=== PATIENT | female | born 1980 | race Caucasian/White ===

== ENCOUNTER → 2017-11-26 10:29 | Outpatient (CLI) | payer MEDICAID, SELFPAY ==
[2017-11-26 12:22] LABS: Absolute Lymphocyte Count 1.71 X10^3/ul (0.83-4.51); Absolute Neutrophil Count 3.4 X10^3/uL (2.0-7.7); Basophil# 0.01 X10^3/uL; Basophil% 0.2 % (0-1); Eosinophil# 0.09 X10^3/uL; Eosinophils% 1.6 % (0-5); Hematocrit 34.6 % (37-47); Hemoglobin 10.6 g/dl (12.0-15.0); Lymphocyte # 1.71 X10^3/ul (4.0); Lymphocyte % 29.9 % (19-41); Mean Corp Hgb Conc 30.6 g/gl (32-36); Mean Corpuscular Hgb 26.9 pg (27.0-32.0); Mean Corpuscular Volume 87.8 fL (81-99); Mean Platelet Vol. 10.2 fl (6.2-12.0); Monocyte# 0.45 X10^3/uL; Monocyte% 7.9 % (0-10); Neutrophil # 3.43 X10^3/uL (2.7-7.7); Neutrophil % 59.9 % (47-70); Platelet Count 258 K/mm3 (150-450); RBC Distribution Width CV 16.2 % (11.6-14.6); RBC Distribution Width SD 51.7 fl (35.1-43.9); Red Blood Count 3.94 M/mm3 (4.2-5.4); White Blood Count 5.7 K/mm3 (4.4-11.0)
[2017-11-26 12:26] LABS: D-Dimer Quantitative (DVT/PE) 0.44 FEU/ug/m (0.27-0.49)
[2017-11-26 12:33] LABS: POSITIVE COUNT NO; POSITIVE DIFFERENTIAL NO; POSITIVE MORPHOLOGY NO
== END ==
PROVIDERS: Family Provider Family Medicine; PCP Family Medicine; Visit Provider Family Medicine
DX: R06.00 Dyspnea, unspecified (principal)
CPT/HCPCS: 36415; 85025; 85379

== ENCOUNTER → 2018-01-01 14:22 | Outpatient (CLI) | payer MEDICAID, SELFPAY ==
[2018-01-01 17:21] LABS: Chlamydia Trachomatis by PCR Negative (Negative); Neisserai gonorrhoeae by PCR Negative (Negative); Probe Check PASS; Sample Adequacy Control PASS; Specimen Processing Control PASS
[2018-01-02 10:28] LABS: HIV - WCH Non-Reactive (Nonreactive)
[2018-01-03 12:31] LABS: HEPATITIS B SURFACE AG Negative (Negative); HSV 2 IgG < 0.91 index (0.00-0.90)
[2018-01-03 12:35] LABS: Hep C Antibodies <0.1 s/co ratio (0.0-0.9)
[2018-01-04 02:33] LABS: Rapid Plasmin Reagin (RPR) NONREACTIVE (NONREACTIVE)
[2018-01-05 03:07] LABS: HSV 1 By PCR Negative (Negative)
[2018-01-07 12:15] LABS: HSV 2 By PCR Negative (Negative)
== END ==
PROVIDERS: Visit Provider Obstetrics & Gynecology
DX: Z11.3 Encounter for screening for infections with a predominantly sexual mode of transmission (principal)
CPT/HCPCS: 36415; 86592; 86695; 86696; 86703; 86803; 87340; 87491; 87529; 87591

== ENCOUNTER → 2018-01-31 12:24 | Outpatient (CLI) | payer MEDICAID, SELFPAY ==
[2018-01-31 12:47] LABS: Hematocrit 37.3 % (37-47); Hemoglobin 11.9 g/dl (12.0-15.0); Mean Corp Hgb Conc 31.9 g/gl (32-36); Mean Corpuscular Hgb 27.5 pg (27.0-32.0); Mean Corpuscular Volume 86.1 fL (81-99); Mean Platelet Vol. 9.9 fl (6.2-12.0); Platelet Count 336 K/mm3 (150-450); RBC Distribution Width CV 15.5 % (11.6-14.6); RBC Distribution Width SD 48.9 fl (35.1-43.9); Red Blood Count 4.33 M/mm3 (4.2-5.4); White Blood Count 15.5 K/mm3 (4.4-11.0)
[2018-01-31 12:51] LABS: Scan Indicated on CBC? Y/N NO
[2018-01-31 13:27] LABS: ALB/GLOB Ratio 0.8 RATIO (0.9-2.4); AST(SGOT) 17 U/L (15-37); Alanine Aminotransfer ALT/SGPT 25 U/L (13-56); Albumin, Serum 3.4 g/dL (3.2-5.0); Alkaline Phosphatase 97 U/L (45-117); Anion Gap 7 (5-15); BUN 13 mg/dL (7-18); BUN/Creat Ratio 16.1 RATIO (10-20); Calcium,Total 8.8 mg/dL (8.5-10.1); Chloride 105 mmol/L (98-107); Creatinine, Serum 0.81 mg/dL (0.55-1.02); EST Glomerular Filtration Rate 85 mL/min (>60); Est Glom Filt Rate - Afr Amer 103 mL/min (>60); Free T3 2.4 pg/mL (2.18-3.98); Globulin 4.5 g/dL (2.2-4.2); Glucose 104 mg/dL (74-106); Protein, Total 7.9 g/dL (6.4-8.2); Sodium Level 137 mmol/L (136-145); T4 Free Direct 1.52 ng/dL (0.76-1.46); Thyroid Stim Hormone (TSH) 0.32 uIU/mL (0.358-3.74)
== END ==
PROVIDERS: Family Provider Family Medicine; PCP Family Medicine; Visit Provider Nurse Practitioner
DX: E11.9 Type 2 diabetes mellitus without complications (principal); E03.9 Hypothyroidism, unspecified
CPT/HCPCS: 36415; 80053; 84439; 84443; 84481; 85027

== ENCOUNTER → 2018-02-07 10:34 | Outpatient (CLI) | payer MEDICAID, SELFPAY ==
--- NOTE | 2018-02-07 10:36 | US_ITS ---
STUDY: THYROID ULTRASOUND REASON FOR EXAM: Female, 37 years old. Difficulty swallowing. TECHNIQUE: Ultrasound evaluation of the thyroid was performed with real-time and static wolfe-scale imaging. COMPARISON: Comparison is made with prior CT scan dated January 24, 2013. FINDINGS: RIGHT LOBE: The right lobe of the thyroid gland measures 4.5 cm x 1.7 cm x 1.8 cm. There is a homogeneous echotexture. There is a 1.2 cm x 0.9 cm x 0.8 cm solid heterogeneous echotexture nodule in the mid pole. Adjacent to this, there is a hypoechoic solid nodule measuring 4 mm x 3 mm by 3 mm. LEFT LOBE: The left lobe of the thyroid gland measures 4.7 cm x 1.8 cm x 1.5 cm. There is a homogeneous echotexture. There is a 7 mm x 7 mm x 6 mm well-defined nodule in the upper pole of the mixed echogenicity. A similar-appearing nodule measuring 5 mm x 4 mm x 3 mm is seen in the mid upper aspect of the lobe as well. ISTHMUS: The isthmus measures 5.0 mm. The regional lymph nodes are normal. US/Thyroid IMPRESSION: Bilateral thyroid nodules. The largest measures 1.2 cm x 0.9 cm x 0.8 cm of mixed echogenicity in the midportion of the right lobe. Electronically Signed: Santhosh Wilkins MD at 13:23 EDT Tel [phone], Service support ,
== END ==
PROVIDERS: Family Provider Family Medicine; PCP Family Medicine; Visit Provider Nurse Practitioner
DX: E03.9 Hypothyroidism, unspecified (principal); E11.9 Type 2 diabetes mellitus without complications
CPT/HCPCS: 76536

== ENCOUNTER → 2018-04-02 14:56 | Outpatient (CLI) | payer MEDICAID, SELFPAY ==
--- NOTE | 2018-04-01 14:18 | ASPS_PTH ---
PATIENT: NEIDA MANNING LOC: [facility] U#:[id number] AGE/SX: 44/F ROOM: RE04/02/[address]: Dr. Brent Mora MD : 1980 BED: DIS: SPEC #: [id number] RECD: 04/02/18 13:50 STATUS: MEDHAT SHANNAN #: [id number] [place]: 04/01/18 14:[address]: Brent Mora DEPT: CYTOLOGY RECD BY: Gigi Rod ENTERED: 04/03/18 09:01 SP TYPE: ASPIRATION OTHR DR: Dr. Albert Cheatham DO Tissues: Thyroid gland, NOS Procedures: Pap Stain (control) Special Stain Group II Cytology Other HEADER OPERATION: Ultrasound guided fine needle aspiration, right thyroid PRE-OP DIAGNOSIS: Multinodular goiter E04.2 TISSUE SUBMITTED: Fine needle aspiration, right thyroid DIAGNOSIS CYTOLOGY Right thyroid, ultrasound guided FNA (smears): Consistent with benign follicular nodule. See cytology study and comment. SJ:rg 04/04/18 COMMENT Immediate cytologic evaluation to determine adequacy is not applicable. Correlation with clinical, radiologic findings and appropriate follow up are necessary. CYTOLOGY STUDY Slides are reviewed. The specimen is adequate for evaluation. The specimen consists of benign follicular cells and colloid. CYTOLOGY GROSS Received are 12 smears labeled with the patient's name and designated per the requisition as FNA right thyroid. Submitted for staining. / CC:cc 04/03/18 TC:5 CPT: 14058
== END ==
PROVIDERS: Family Provider Family Medicine; PCP Family Medicine; Visit Provider Surgery
DX: E04.2 Nontoxic multinodular goiter (principal)
CPT/HCPCS: 88161; 88313

== ENCOUNTER → 2018-05-01 10:26 | Outpatient (CLI) | payer MEDICAID, SELFPAY ==
[2018-05-01 13:04] LABS: Erythrocyte Sedimentation Rate 37 mm/hr (0-20)
[2018-05-01 13:05] LABS: Absolute Lymphocyte Count 2.24 X10^3/ul (0.83-4.51); Absolute Neutrophil Count 4.1 X10^3/uL (2.0-7.7); Basophil# 0.02 X10^3/uL; Basophil% 0.3 % (0-1); Eosinophil# 0.11 X10^3/uL; Eosinophils% 1.6 % (0-5); Hematocrit 36.7 % (37-47); Hemoglobin 11.4 g/dl (12.0-15.0); Lymphocyte # 2.24 X10^3/ul (4.0); Lymphocyte % 32.5 % (19-41); Mean Corp Hgb Conc 31.1 g/gl (32-36); Mean Corpuscular Volume 83.8 fL (81-99); Mean Platelet Vol. 9.9 fl (6.2-12.0); Monocyte% 5.8 % (0-10); Neutrophil # 4.11 X10^3/uL (2.7-7.7); Neutrophil % 59.7 % (47-70); POSITIVE COUNT NO; POSITIVE DIFFERENTIAL NO; POSITIVE MORPHOLOGY NO; Platelet Count 291 K/mm3 (150-450); RBC Distribution Width CV 15.5 % (11.6-14.6); RBC Distribution Width SD 47.5 fl (35.1-43.9); Red Blood Count 4.38 M/mm3 (4.2-5.4); White Blood Count 6.9 K/mm3 (4.4-11.0)
[2018-05-02 14:38] LABS: ANTINUCLEAR ANTIBODIES DIRECT Negative (Negative)
== END ==
PROVIDERS: Visit Provider Family Medicine
DX: M25.50 Pain in unspecified joint (principal); K12.1 Other forms of stomatitis; R68.2 Dry mouth, unspecified
CPT/HCPCS: 36415; 85025; 85652; 86038; 86140; 86225; 86235; 87070; 87186; 87205

== ENCOUNTER → 2018-06-13 11:11 | Outpatient (CLI) | payer MEDICAID, SELFPAY ==
[2018-06-13 12:39] LABS: Absolute Lymphocyte Count 1.76 X10^3/ul (0.83-4.51); Absolute Neutrophil Count 5.5 X10^3/uL (2.0-7.7); Basophil# 0.01 X10^3/uL; Basophil% 0.1 % (0-1); Eosinophil# 0.12 X10^3/uL; Eosinophils% 1.5 % (0-5); Hematocrit 35.3 % (37-47); Hemoglobin 11.4 g/dl (12.0-15.0); Lymphocyte # 1.76 X10^3/ul (4.0); Lymphocyte % 22.2 % (19-41); Mean Corp Hgb Conc 32.3 g/gl (32-36); Mean Corpuscular Hgb 26.6 pg (27.0-32.0); Mean Corpuscular Volume 82.3 fL (81-99); Mean Platelet Vol. 10.2 fl (6.2-12.0); Monocyte# 0.51 X10^3/uL; Monocyte% 6.4 % (0-10); Neutrophil # 5.49 X10^3/uL (2.7-7.7); Neutrophil % 69.4 % (47-70); Platelet Count 307 K/mm3 (150-450); RBC Distribution Width CV 15.2 % (11.6-14.6); RBC Distribution Width SD 45.2 fl (35.1-43.9); Red Blood Count 4.29 M/mm3 (4.2-5.4); White Blood Count 7.9 K/mm3 (4.4-11.0)
[2018-06-13 12:50] LABS: POSITIVE COUNT NO; POSITIVE DIFFERENTIAL NO; POSITIVE MORPHOLOGY NO
[2018-06-13 13:36] LABS: Cholesterol 142 mg/dL (200); High Density Lipoprotein 33 mg/dL; T4 Free Direct 1.67 ng/dL (0.76-1.46); Thyroid Stim Hormone (TSH) 0.17 uIU/mL (0.358-3.74); Triglycerides 204 mg/dL; Very Low Density Lipoprotein 41 mg/dL (5-40)
[2018-06-14 18:51] LABS: Thyroid Peroxidase AB 10 IU/mL (0-34)
[2018-06-14 18:53] LABS: Thyroglobulin Antibody < 1.0 IU/mL (0.0-0.9)
== END ==
PROVIDERS: Family Provider Family Medicine; PCP Family Medicine; Visit Provider Family Medicine
DX: E11.49 Type 2 diabetes mellitus with other diabetic neurological complication (principal); E03.9 Hypothyroidism, unspecified; E78.5 Hyperlipidemia, unspecified; E66.01 Morbid (severe) obesity due to excess calories; D64.9 Anemia, unspecified
CPT/HCPCS: 36415; 80061; 84439; 84443; 84481; 85025; 86376; 86800

== ENCOUNTER → 2018-06-19 07:03 | Outpatient (CLI) | payer MEDICAID, SELFPAY ==
--- NOTE | 2018-06-19 14:24 | PFT ---
INTRODUCTION: The patient is a 37-year-old female that presents for pulmonary function testing secondary to a diagnosis of upper airway cough syndrome. Respiratory therapy reports good patient effort. Bronchodilators were used during testing. INTERPRETATION: Forced expiration spirometry demonstrates no evidence of a large airways obstructive ventilatory defect. There was no significant response to aerosolized bronchodilators. Spirograms are of good quality and plateau normally. Body plethysmography was performed and reveals a decreased TLC to 4.79 L, 84% of predicted, indicative of an underlying mild restrictive ventilatory defect. The remainder of the lung volumes are symmetrically reduced. Diffusing capacity by single breath CO is mildly reduced at 61% of predicted. IMPRESSION: These pulmonary function studies demonstrate the presence of a mild restrictive ventilatory defect with a symmetric reduction in diffusing capacity. There are no previous pulmonary function studies available for comparison.
== END ==
PROVIDERS: Family Provider Family Medicine; PCP Family Medicine; Referring Provider Internal Medicine Critical Care Medicine; Visit Provider Internal Medicine Critical Care Medicine
DX: R05 Cough (principal); R09.82 Postnasal drip
CPT/HCPCS: 94060; 94726; 94729

== ENCOUNTER → 2018-07-29 07:37 | Outpatient (CLI) | payer MEDICAID, SELFPAY ==
--- NOTE | 2018-07-29 07:44 | NM_ITS ---
CLINICAL: 37-year-old female with reported history of thyroid nodularity and abnormal in vitro thyroid function studies. I-123 THYROID UPTAKE and SCAN COMPARISON: Thyroid ultrasound report 02/07/2018 FINDINGS: The patient was administered a 336 uCi I-123 capsule by mouth. The 4-hour I-123 radioactive iodine thyroidal uptake was calculated to be 7.8 % (normal 5 to 25 %). The 24-hour I-123 radioactive iodine thyroidal uptake was calculated to be 21.5 % (normal 5 to 40 %). The I-123 thyroid scan demonstrates relatively homogeneous radiopharmaceutical concentration throughout both lobes of a U-shaped thyroid gland. The right lobe is larger than left. There are no colloidal parenchymal hypofunctioning-cold nodules noted in either lobe of the thyroid gland. Radiopharmaceutical concentration appears evident in the region of the oropharynx. NM/Thyroid Uptake Single or Mult IMPRESSION: 1. NORMAL 4- and 24-hour I-123 radioactive iodine thyroidal uptakes. 2. 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
== END ==
PROVIDERS: Family Provider Family Medicine; PCP Family Medicine; Referring Provider Family Medicine; Visit Provider Family Medicine
DX: E04.1 Nontoxic single thyroid nodule (principal); E05.90 Thyrotoxicosis, unspecified without thyrotoxic crisis or storm
CPT/HCPCS: 78012; A9516

== ENCOUNTER → 2018-08-05 15:04 | Outpatient (CLI) | payer MEDICAID, SELFPAY ==
[2018-08-05 17:49] LABS: T4 Free Direct 1.62 ng/dL (0.76-1.46); Thyroid Stim Hormone (TSH) 0.27 uIU/mL (0.358-3.74)
--- OUTSIDE RECORDS SUMMARY | 2018-09-17 13:33 | XMS RPT_ITS ---
:1980 Author Organization OHIP Support Name Relationship Address Phone CECILIA, CLAUDIA Unavailable [address] [place] [address] SONNY MANNING Unavailable [address] + [place] [address] UE Unavailable Unavailable Unavailable CECILIA, CLAUDIA Unavailable [address] [place] [address] SONNY MANNING Unavailable [address] + [place] [address] UE Unavailable Unavailable Unavailable CECILIA, CLAUDIA Unavailable [address] [place] [address] SONNY MANNING Unavailable [address] + [place] [address] UE Unavailable Unavailable Unavailable CECILIA, CLAUDIA Unavailable [address] [place] [address] SONNY MANNING Unavailable [address] + [place] [address] UE Unavailable Unavailable Unavailable CECILIA, CLAUDIA Unavailable [address] + [address] [place] [address] SONNY MANNING Unavailable [address] + [place] [address] UE Unavailable Unavailable Unavailable CECILIA, CLAUDIA Unavailable [address] + [address] [place] [address] SONNY MANNING Unavailable [address] + [place] [address] UE Unavailable Unavailable Unavailable CECILIA, CLAUDIA Unavailable [address] [place] [address] SONNY MANNING Unavailable [address] + [place] [address] UE Unavailable Unavailable Unavailable CECILIA, CLAUDIA Unavailable [address] [place] [address] ANGELICA MANNINGNIS Unavailable [address] + [place] [address] UE Unavailable Unavailable Unavailable NIGELANGELICASONNY Unavailable [address] + [place], [place] [id number] NIGEL SONNY Unavailable [address] Unavailable [place], [place] [id number] NOT GIVEN Unavailable Unavailable Unavailable CECILIA, CLAUDIA Unavailable [address] [place] [address] ANGELICA MANNINGNIS Unavailable [address] + [place] [address] UE Unavailable Unavailable Unavailable CECILIA, CLAUDIA Unavailable [address] [place] [address] NIGEL SONNY Unavailable [address] + [place] [address] UE Unavailable Unavailable Unavailable CECILIA, CLAUDIA Unavailable [address] [place] [address] NIGEL SONNY Unavailable [address] + [place] [address] UE Unavailable Unavailable Unavailable CECILIA, CLAUDIA Unavailable [address] [place] [address] NIGELANGELICASONNY Unavailable [address] + [place] [address] UE Unavailable Unavailable Unavailable CECILIA, CLAUDIA Unavailable [address] + [address] [place] [address] NIGEL SONNY Unavailable [address] + [place] [address] UE Unavailable Unavailable Unavailable CECILIA, CLAUDIA Unavailable [address] + [address] [place] [address] NIGEL, SONNY Unavailable [address] + [place] [address] UE Unavailable Unavailable Unavailable CECILIA, CLAUDIA Unavailable [address] + [address] [place] [address] ANGELICA MANNINGNIS Unavailable [address] + [place] [address] UE Unavailable Unavailable Unavailable CECILIA, CLAUDIA Unavailable [address] [place] [address] ANGELICA MANNINGNIS Unavailable [address] + [place] [address] UE Unavailable Unavailable Unavailable CECILIA, CLAUDIA Unavailable [address] [place] [address] ANGELICA MANNINGNIS Unavailable [address] + [place] [address] UE Unavailable Unavailable Unavailable CECILIA, CLAUDIA Unavailable [address] [place] [address] NIGEL SONNY Unavailable [address] + [place] [address] UE Unavailable Unavailable Unavailable CECILIA, CLAUDIA Unavailable [address] [place] [address] NIGELANGELICASONNY Unavailable [address] + [place] [address] UE Unavailable Unavailable Unavailable NIGEL SONNY Unavailable [address] + [place], [place] [phone] NIGEL SONNY Unavailable [address] Unavailable [place], [place] [id number] NOT GIVEN Unavailable Unavailable Unavailable CECILIA, CLAUDIA Unavailable [address] [place] [address] NIGEL SONNY Unavailable [address] + [place] [address] UE Unavailable Unavailable Unavailable CECILIA, CLAUDIA Unavailable [address] [place] [address] NIGEL SONNY Unavailable [address] + [place] [address] UE Unavailable Unavailable Unavailable CECILIA, CLAUDIA Unavailable [address] [place] [address] NIGEL SONNY Unavailable [address] + [place] [address] UE Unavailable Unavailable Unavailable CECILIA, CLAUDIA Unavailable [address] + [address] [place] [address] SONNY MANNING Unavailable [address] + [place] [address] UE Unavailable Unavailable Unavailable CECILIA, CLAUDIA Unavailable [address] + [address] [place] [address] SONNY MANNING Unavailable [address] + [place] [address] UE Unavailable Unavailable Unavailable Care Team Providers Name Role Phone DACIA MCKENZIE (MARINE FISHERIES TECHNICIAN) Referring Unavailable WILKERSON, CATARINO Referring Unavailable WILKERSON, CATARINO Referring Unavailable LESLYE CAUSEY Attending Unavailable WILKERSON, CATARINO Referring Unavailable WILKERSON, CATARINO Referring Unavailable WILKERSON, CATARINO Referring Unavailable WILKERSON, CATARINO Referring Unavailable WILKERSON, CATARINO Admitting Unavailable WILKERSON, CATARINO Attending Unavailable WILKERSON, CATARINO Attending Unavailable WENDY, BETSY Attending Unavailable BALL, BORIS S Referring Unavailable WILKERSON, CATARINO Attending Unavailable ZHANE, LIA (AUD) Attending Unavailable WENDY, BETSY Referring Unavailable WENDY, BETSY Attending Unavailable BALL, BORIS S Referring Unavailable WILKERSON, CATARINO Attending Unavailable WILKERSON, CATARINO Attending Unavailable TANGELA CARTER Attending Unavailable WENDY, BETSY Referring Unavailable LEIF SHER DO Admitting Unavailable LEIF SHER DO Attending Unavailable LEIF SHER DO Primary Care Unavailable NO, DOCTOR ON Consulting Unavailable LEIF SHER DO Admitting Unavailable LEIF SHER DO Attending Unavailable LEIF SHER DO Primary Care Unavailable JOHN, MARY A Referring Unavailable JOHN, MARY A Consulting Unavailable PROVIDER, UNKNOWN Consulting Unavailable John Mary Attending Unavailable John, Mary Primary Care Unavailable Krzysztof Argueta D.O. Attending Unavailable John, Mary Referring Unavailable John, Mary Primary Care Unavailable Krzysztof Argueta D.O. Attending Unavailable John, Mary Primary Care Unavailable Krzysztof Argueta D.O. Attending Unavailable Krzysztof Argueta D.O. Referring Unavailable John, Mary Primary Care Unavailable Nguyen Hammond NP-C Attending Unavailable John, Mary Referring Unavailable Frida Tyler Attending Unavailable John, Mary Referring Unavailable Nguyen Hammond MARINE FISHERIES TECHNICIAN-C Attending Unavailable Jhon, Mary Referring Unavailable John, Mary Attending Unavailable John, Mary Primary Care Unavailable Leif Zuñiga Attending Unavailable Shook, Nguyen Vega MARINE FISHERIES TECHNICIAN-C Attending Unavailable John, Mary Referring Unavailable John, Mary Primary Care Unavailable Shook, Nguyen Vega MARINE FISHERIES TECHNICIAN-C Attending Unavailable Shook, Nguyen Vega MARINE FISHERIES TECHNICIAN-C Referring Unavailable John, Mary Primary Care Unavailable Shook, Nguyen Vega MARINE FISHERIES TECHNICIAN-C Attending Unavailable John, Mary Primary Care Unavailable Shook, Nguyen Vega MARINE FISHERIES TECHNICIAN-C Attending Unavailable John, Mary Referring Unavailable John, Mary Primary Care Unavailable Abby, Brent Attending Unavailable John, Mary Referring Unavailable John, Mary Primary Care Unavailable [place], Brent Attending Unavailable John, Mary Referring Unavailable John, Mary Primary Care Unavailable Abby, Brent Attending Unavailable John, Mary Primary Care Unavailable Abby, Brent Referring Unavailable [place], Brent Attending Unavailable John, Mary Referring Unavailable John, Mary Primary Care Unavailable John, Mary Attending Unavailable John, Mary Primary Care Unavailable John, Mary Attending Unavailable John, Mary Primary Care Unavailable Krzysztof Argueta D.O. Attending Unavailable Krzysztof Argueta D.O. Referring Unavailable John, Mayr Primary Care Unavailable John, Mary Attending Unavailable John, Mary Referring Unavailable John, Mary Primary Care Unavailable Krzysztof Argueta D.O. Attending Unavailable Krzysztof Argueta D.O. Referring Unavailable Frida Tyler Attending Unavailable John, Mary Referring Unavailable John, Mary Attending Unavailable John, Mary Primary Care Unavailable PROBLEMS PROBLEMS DATE TYPE CONDITION / CODE ATTENDING STATUS SOURCE 07/02/2018 Unknown R05 - Cough / Krzysztof Argueta, Active [facility](ICD-[facility] 06/13/2018 Unknown E03.9 - JohnMary ferrara Active [facility] Hypothyroidism, Community unspecified / Hospital E03.9(ICD-10) Repository 06/13/2018 Unknown E78.5 - John, Mary Active [facility] Hyperlipidemia, Community unspecified / Hospital E78.5(ICD-10) Repository 06/13/2018 Unknown E66.01 - Morbid JohnMary ferrara Active [facility] (severe) obesity due Community to excess calories / Hospital E66.01(ICD-10) Repository 06/13/2018 Unknown D64.9 - Anemia, Mary Lopez Active [facility] unspecified / Community D64.9(ICD-10) Hospital Repository 05/08/2018 Unknown M25.50 - Pain in Mary Lopez Active [facility] unspecified joint / Community M25.50(ICD-10) Hospital Repository 04/03/2018 Unknown E04.2 - Nontoxic [place], Active [facility] multinodular goiter [facility] / E04.2(ICD-10) Hospital Repository 03/20/2018 Unknown E11.9 - Type 2 Nguyen Hammond Active [facility] diabetes mellitus J MARINE FISHERIES TECHNICIAN-C Community without Hospital complications / Repository E11.9(ICD-10) 01/14/2018 Unknown Z11.3 - Encounter Zara Leif Active [facility] for screening for Community infections with a Hospital predominantly sexual Repository mode of transmission / Z11.3(ICD-10) 10/13/2017 Admitting Right lower quadrant DIDURLEIF Active [facility] Diagnosis pain / R1031(ICD-10) DO [facility] Repository 10/13/2017 Principle Right lower quadrant DIDUR, LEIF Active [facility] Diagnosis pain / R1031(ICD-10) DO [facility] Repository 10/13/2017 Secondary Low back pain / DIDURLEIF Active [facility] Diagnosis M545(ICD-10) DO [facility] Repository 07/30/2017 Active Chronic sinusitis, CATARINO WILKERSON Active [facility] unspecified / Clinic Main J32.9(ICD-10) [facility] Repository 10/08/2017 Active Other acute CATARINO WILKERSON Active [facility] postprocedural pain Clinic Main / G89.18(ICD-10) [facility] Repository 09/24/2017 Active Unknown / NA Active [facility] UNK(Unknown) Clinic Main [facility] Repository 09/24/2017 Active Encounter for other MODHA, EVERTM Active [facility] preprocedural Clinic Main examination / [facility] Z01.818(ICD-10) Repository 09/24/2017 Active Chronic pansinusitis NA Active [facility] / J32.4(ICD-10) Clinic Main [facility] Rep[facility] 09/24/2017 Active 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 Community unspecified / Hospital J30.9(ICD-10) Repository 10/17/2017 Unknown J45.909 - Krzysztof Argueta, Active [facility] Unspecified asthma, D.O. Community uncomplicated / Hospital J45.909(ICD-10) Repository 10/17/2017 Unknown G47.33 - Obstructive Krzysztof Argueta, Active [facility] sleep apnea (adult) D.O. Community (pediatric) / Hospital G47.33(ICD-10) Repository 10/17/2017 Unknown E66.9 - Obesity, Krzysztof Argueta, Active [facility] unspecified / D.O. Community E66.9(ICD-10) Hospital Repository 10/17/2017 Unknown F17.201 - Nicotine Krzysztof Argueta, Active [facility] dependence, D.O. Community unspecified, in Hospital remission / Repository F17.201(ICD-10) 09/05/2017 Active Unspecified injury NA Active [place] of left lower leg, [facility] Main initial encounter / [facility] S89.92XA(ICD-10) Repository 06/18/2018 Unknown E11.49 - Type 2 Mary Lopez Active [facility] diabetes mellitus Community with other diabetic Hospital neurological Repository complication / E11.49(ICD-10) PROCEDURES PROCEDURES No Procedure Records FoundRESULTS RESULTS PROGRESS Observed: 08/23/2018 Status: COMPLETED Source: [place] 6:17 PM [facility] REPOSITORY HNO ID: [id number] Author: Betsy Nguyen Service: (none) Author Type: Physician Type: Progress Notes Filed: 08/23/2018 6:21 PM Note Text: (H90.6) Hearing loss, mixed, bilateral (primary encounter diagnosis) (H60.313) Chronic diffuse otitis externa of both ears (H61.323) 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 Laterality to be determined by patient--both are ideal candidates. Codes for pre-determination: 33302 Auditory osseointegrated device implantation with attachment to sound processor, without mastoidectomy [id number] Auditory osseointegrated system, including all internal and external components Betsy Nguyen MD CNOV Observed: 08/23/2018 Status: COMPLETED Source: [place]UN[place] 8:00 AM [facility] REPOSITORY Office Visit (CDISMN) ANNE MARIE MANNING ([id number]) 1980 F Date Time Provider Department 08/23/18 8:00 AM [facility] During your visit today, we recorded the following information about you: Beth Soliz PhD 08/23/2018 4:42 PM Signed CONDUCTIVE/MIXED HEARING LOSS CANDIDACY EVALUATION Anne Marie Manning [id number] 1980 August 23, 2018 Referred by: Betsy Nguyen MD [address] [facility] [address] HISTORY This patient was referred for an evaluation to discuss options for the management of conductive/mixed hearing loss following medical clearance by Betsy Nguyen MD. 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 but has been taken off --No amplification use current or past --Dizziness that is present upon getting up out of bed or blowing her nose --History of diabetes and is currently being evaluated for an autoimmune disorder --Denies pain but states there is active effusion in both ears --Struggles in most listening situations as everything she hears is muffled --Typically needs to use headphones when talking on the phone The patient completed the following questionnaires based on their current experience and scored as follows: Questionnaire Composite Score HHIA/E 96 THI 88 SSQ 2.816 SSQ: Speech Hearing 2.14 SSQ: Spatial Hearing 3.58 SSQ: Qualities of Hearing 2.61 AUDIOMETRIC TESTING Audiometric testing was completed at the [facility] on 03/06/18, with the following results: Right Ear (unaided): Results reveal the presence of hearing within normal limits 250-500 Hz sloping to moderately severe 5509-5411 Hz mixed hearing loss. Word recognition score (100%) was excellent. Left Ear (unaided): Results reveal the presence of a mild sloping to moderately severe mixed hearing loss hearing loss. Word recognition score (100%) was excellent. AIDED AUDIOLOGIC TESTING: Audiologic testing was completed in the sound field with the speech processor at first fit settings. Aided speech recognition thresholds (SRT) were obtained using recorded stimuli in sound field. Aided speech recognition testing was completed at 50 dB HL using recorded stimuli in the soundfield. SRT and NU-6 testing was completed using stimuli presented at 0 degree azimuth. The contralateral ear was masked in the 0 degrees azimuth condition. Test Condition SRT NU-6 No device (Left ear; right masked) 35 dB HL 78% No device (Right ear; left masked) 45 dB HL 46% SMILEY (Left) 30 dB HL 92% SMILEY (Right) 25 dB HL 98% SMILEY Bilateral 20 dB HL 98% Summary: There is a significant improvement when using a SMILEY compared to no device. These results suggest that Ms. Manning would be a good candidate for bone anchored implantation on either side from and audiologic standpoint. MANAGEMENT OPTIONS There are currently two options for individuals with conductive or mixed hearing loss: SMILEY and in some cases, traditional amplification. This patient cannot use traditional amplification and is interested in bone-conducted hearing options. The following topics were discussed in great detail and specifically related the patient?s particular circumstance: ? The benefits and limitations of each of the available devices ? Air-conducted vs. bone-conducted hearing ? Surgical and non-surgical considerations related to each option ? Inability to restore sound localization abilities with any of the devices ? Battery life, associated costs, and hearing aid vs. DME classifications ? Most appropriate recommendations for this patient including review of aided results ? Need for on-going special services ? Appropriate expectations INTERPRETATION, SUMMARY AND RECOMMENDATIONS Based on the audiometric testing, this patient is a candidate for SMILEY in the either ear (meets FDA criteria). DEVICE SELECTION AND COUNSELING Based on the discussion among the retail service lead merchandiser, the patient and her , the following device was selected: Humble Bundle Ponto 3 super power SMILEY. The chosen color is Mocca Brown. The patient is aware that a fitting fee of $500 will be due at the time of device fitting. Will discuss preferred side (or bilateral) with Dr. Nguyen. The patient completed and signed a Fee Information Form and a Device Selection Form. The device order was submitted. TOTAL TIME: 90 minutes Keren Gibbons B.A. Doctor of Audiology (Beth) Skate Maker Beth Soliz, PhD, [facility]/A I verify that I have reviewed the history, test results, and interpretation for this patient. Jessica Soliz, Ph.D., [facility]-A [employer], Hearing Implant Program copied to: Betsy Nguyen MD and FLORA Mckee Taping Machine Operator Referring Provider: BETSY NGUYEN [[id number]] Allergies As of Date: 08/23/2018 Noted Allergy Reaction ULTRAM (TRAMADOL HCL) 11/20/2006 8 - GI Upset Date Reviewed: 07/03/2018 Reviewed by: Emili Gaxiola - Fully Assessed Primary Visit Diagnosis:Mixed hearing loss, bilateral [H90.6] Other Visit Diagnosis:Chronic diffuse otitis externa of both ears [H60.313] Prescriptions as of 08/23/2018 Sig: XANAX ORAL Take 1 mg by mouth three time* ATORVASTATIN 40 MG TABLET Take 10 mg by mouth once te* BLOOD SUGAR DIAGNOSTIC STRIPS Test blood sugar(s) 3 times d* BUDESONIDE 0.5 MG/2 ML SUSPEN* Use 2 mL via nebulizer twice * CITALOPRAM 40 MG TABLET Take 60 mg by mouth once te* BENADRYL ALLERGY ORAL Take by mouth. DOXEPIN 50 MG CAPSULE Take 50 mg by mouth daily at * EASY TOUCH TWIST LANCETS 33 G* FLUOCINOLONE ACETONIDE OIL 0.* Use 1-2 Drops in both ears on* FLUTICASONE 50 MCG/ACTUATION * Use 2 Sprays in each nostril * Patient not taking: Reported on 03/06/2018 FREESTYLE LITE METER KIT HYDROXYZINE PAMOATE 25 MG CAP* Take 25 mg by mouth three kenrick* NOVOLOG SUBCUTANEOUS Inject subcutaneously. Use wi* LANTUS SUBCUTANEOUS Inject 60 Units subcutaneousl* LAMOTRIGINE 25 MG TABLET Take 25 mg by mouth once te* LEVOTHYROXINE 25 MCG TABLET Take 1 tablet by mouth once d* LIRAGLUTIDE 0.6 MG/0.1 ML (18* Inject 1.8 mg subcutaneously * LYRICA 50 MG CAPSULE Take 50 mg by mouth three kenrick* MAGNESIUM HYDROXIDE 400 MG (1* Take 400 mg by mouth twice da* OXYCODONE-ACETAMINOPHEN 5 MG-* Take 1 tablet by mouth every * PANTOPRAZOLE 40 MG TABLET,DEL* Take 1 tablet by mouth twice * PRAMIPEXOLE 1 MG TABLET Take 1 tablet by mouth daily * PREDNISONE 10 MG TABLET Take by mouth four (4) tabs x* PROMETHAZINE 50 MG TABLET Take 50 mg by mouth as needed. SODIUM CHLORIDE 0.9 % IRRIGAT* Please use to rinse area twic* TIZANIDINE 4 MG CAPSULE Take 4 mg by mouth daily at b* Problem List As Of Date 08/23/2018 Noted Resolved Supervision of other high-risk [O09.8*INVALID FOR*11/18/2012 Supervision of other normal [Z34.80] INVALID FOR*11/18/2012 Sebaceous cyst [L72.3] INVALID FOR*11/18/2012 Type II or unspecified type diabetes mellitus w*INVALID FOR*02/06/2013 Tobacco use disorder [F17.200] INVALID FOR* H/O thyroid nodule [Z86.39] INVALID FOR* More... GERD (gastroesophageal reflux disease) [K21.9] INVALID FOR* Asthma [J45.909] INVALID FOR* Depressive disorder, not elsewhere classified [*INVALID FOR* Antiphospholipid antibody syndrome [D68.61] INVALID FOR* Genital warts [A63.0] INVALID FOR* Other and unspecified hyperlipidemia [E78.5] INVALID FOR* Neuropathy in diabetes [E11.40] INVALID FOR* More... Sleep apnea [G47.30] INVALID FOR* Restless leg syndrome [G25.81] INVALID FOR* DM type 2 with diabetic peripheral neuropathy [*INVALID FOR* Lateral epicondylitis of right elbow [M77.11] INVALID FOR* Degeneration of lumbar or lumbosacral intervert*INVALID FOR* Other pain disorders related to psychological f*INVALID FOR* GERD with esophagitis [K21.0] INVALID FOR* Intractable vomiting with nausea [R11.2] INVALID FOR* History of thyroid cyst [Z86.39] INVALID FOR* Mild intermittent asthma without complication [*INVALID FOR* Chronic sinusitis [J32.9] INVALID FOR* More... Chronic diffuse otitis externa of both ears [H6*INVALID FOR* Acquired stenosis of external ear canal seconda*INVALID FOR* Mixed hearing loss, bilateral [H90.6] INVALID FOR* Dizziness and giddiness [R42] INVALID FOR* Follow-up and Disposition History Recorded Encounter Status:Closed by TANGELA BERNAL PHD on 08/23/18 HOSP Observed: 08/23/2018 Status: COMPLETED Source: [place] 12:00 AM [facility] REPOSITORY Patient Update (OTOLMN) ANNE MARIE MANNING ([id number]) 1980 F Date Time Provider Department 08/23/18 BETSY NGUYEN During your visit today, we recorded the following information about you: Betsy Nguyen MD 08/23/2018 6:21 PM Signed (H90.6) Hearing loss, mixed, bilateral (primary encounter diagnosis) (H60.313) Chronic diffuse otitis externa of both ears (H61.323) 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 Laterality to be determined by patient--both are ideal candidates. 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 DOXEPIN 50 MG CAPSULE Take 50 mg by mouth daily at * EASY TOUCH TWIST LANCETS 33 G* FLUOCINOLONE ACETONIDE OIL 0.* Use 1-2 Drops in both ears on* FLUTICASONE 50 MCG/ACTUATION * Use 2 Sprays in each nostril * Patient not taking: Reported on 03/06/2018 FREESTYLE LITE METER KIT HYDROXYZINE PAMOATE 25 MG CAP* Take 25 mg by mouth three kenrick* NOVOLOG SUBCUTANEOUS Inject subcutaneously. Use wi* LANTUS SUBCUTANEOUS Inject 60 Units subcutaneousl* LAMOTRIGINE 25 MG TABLET Take 25 mg by mouth once te* LEVOTHYROXINE 25 MCG TABLET Take 1 tablet by mouth once d* LIRAGLUTIDE 0.6 MG/0.1 ML (18* Inject 1.8 mg subcutaneously * LYRICA 50 MG CAPSULE Take 50 mg by mouth three kenrick* MAGNESIUM HYDROXIDE 400 MG (1* Take 400 mg by mouth twice da* OXYCODONE-ACETAMINOPHEN 5 MG-* Take 1 tablet by mouth every * PANTOPRAZOLE 40 MG TABLET,DEL* Take 1 tablet by mouth twice * PRAMIPEXOLE 1 MG TABLET Take 1 tablet by mouth daily * PREDNISONE 10 MG TABLET Take by mouth four (4) tabs x* PROMETHAZINE 50 MG TABLET Take 50 mg by mouth as needed. SODIUM CHLORIDE 0.9 % IRRIGAT* Please use to rinse area twic* TIZANIDINE 4 MG CAPSULE Take 4 mg by mouth daily at b* Problem List As Of Date 08/23/2018 Noted Resolved Supervision of other high-risk [O09.8*INVALID FOR*11/18/2012 Supervision of other normal [Z34.80] INVALID FOR*11/18/2012 Sebaceous cyst [L72.3] INVALID FOR*11/18/2012 Type II or unspecified type diabetes mellitus w*INVALID FOR*02/06/2013 Tobacco use disorder [F17.200] INVALID FOR* H/O thyroid nodule [Z86.39] INVALID FOR* More... GERD (gastroesophageal reflux disease) [K21.9] INVALID FOR* Asthma [J45.909] INVALID FOR* Depressive disorder, not elsewhere classified [*INVALID FOR* Antiphospholipid antibody syndrome [D68.61] INVALID FOR* Genital warts [A63.0] INVALID FOR* Other and unspecified hyperlipidemia [E78.5] INVALID FOR* Neuropathy in diabetes [E11.40] INVALID FOR* More... Sleep apnea [G47.30] INVALID FOR* Restless leg syndrome [G25.81] INVALID FOR* DM type 2 with diabetic peripheral neuropathy [*INVALID FOR* Lateral epicondylitis of right elbow [M77.11] INVALID FOR* Degeneration of lumbar or lumbosacral intervert*INVALID FOR* Other pain disorders related to psychological f*INVALID FOR* GERD with esophagitis [K21.0] INVALID FOR* Intractable vomiting with nausea [R11.2] INVALID FOR* History of thyroid cyst [Z86.39] INVALID FOR* Mild intermittent asthma without complication [*INVALID FOR* Chronic sinusitis [J32.9] INVALID FOR* More... Chronic diffuse otitis externa of both ears [H6*INVALID FOR* Acquired stenosis of external ear canal seconda*INVALID FOR* Mixed hearing loss, bilateral [H90.6] INVALID FOR* Dizziness and giddiness [R42] INVALID FOR* Acq stenosis of ext ear canal sec to inflam and*INVALID FOR* More... Follow-up and Disposition History Recorded Encounter Status:Closed by BETSY NGUYEN MD on 08/23/18 THYROID STIM HORMONE Collected: 08/05/2018 Status: F Source: [place] (TSH) 3:06 PM [facility] REPOSITORY TYPE CODE TESTS RESULT OUT OF RANGE REFERENCE UNITS LAB L501.9520 0.358-3.74 uIU/mL Low TSH 0.27 Performed By: #### L501.9520, L506.0400 #### [facility] [address] [place], [address] T4 FREE DIRECT Collected: 08/05/2018 Status: F Source: [place] 3:06 PM [facility] REPOSITORY TYPE CODE TESTS RESULT OUT OF REFERENCE UNITS RANGE LAB L506.0400 0.76-1.46 ng/dL High T4 FREE 1.62 DIRECT Performed By: #### L501.9520, L506.0400 #### [facility] [address] [place], [address] PROGRESS Observed: 07/31/2018 Status: COMPLETED Source: [place] 10:49 AM [facility] REPOSITORY HNO ID: [id number] Author: Tangela Roc Service: (none) Author Type: Managing Cognitive Engineer Type: Progress Notes Filed: 08/23/2018 4:42 PM Note Text: CONDUCTIVE/MIXED HEARING LOSS CANDIDACY EVALUATION Anne Marie Radha Nigel [id number] 1980 August 23, 2018 Referred by: Betsy Nguyen MD [address] [facility] [address] HISTORY This patient was referred for an evaluation to discuss options for the management of conductive/mixed hearing loss following medical clearance by Betsy Nguyen MD. 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 but has been taken off --No amplification use current or past --Dizziness that is present upon getting up out of bed or blowing her nose --History of diabetes and is currently being evaluated for an autoimmune disorder --Denies pain but states there is active effusion in both ears --Struggles in most listening situations as everything she hears is muffled --Typically needs to use headphones when talking on the phone The patient completed the following questionnaires based on their current experience and scored as follows: Questionnaire Composite Score HHIA/E 96 THI 88 SSQ 2.816 SSQ: Speech Hearing 2.14 SSQ: Spatial Hearing 3.58 SSQ: Qualities of Hearing 2.61 AUDIOMETRIC TESTING Audiometric testing was completed at the [facility] on 03/06/18, with the following results: Right Ear (unaided): Results reveal the presence of hearing within normal limits 250-500 Hz sloping to moderately severe 0545-1101 Hz mixed hearing loss. Word recognition score (100%) was excellent. Left Ear (unaided): Results reveal the presence of a mild sloping to moderately severe mixed hearing loss hearing loss. Word recognition score (100%) was excellent. AIDED AUDIOLOGIC TESTING: Audiologic testing was completed in the sound field with the speech processor at first fit settings. Aided speech recognition thresholds (SRT) were obtained using recorded stimuli in sound field. Aided speech recognition testing was completed at 50 dB HL using recorded stimuli in the soundfield. SRT and NU-6 testing was completed using stimuli presented at 0 degree azimuth. The contralateral ear was masked in the 0 degrees azimuth condition. Test Condition SRT NU-6 No device (Left ear; right masked) 35 dB HL 78% No device (Right ear; left masked) 45 dB HL 46% SMILEY (Left) 30 dB HL 92% SMILEY (Right) 25 dB HL 98% SMILEY Bilateral 20 dB HL 98% Summary: There is a significant improvement when using a SMILEY compared to no device. These results suggest that Ms. Manning would be a good candidate for bone anchored implantation on either side from and audiologic standpoint. MANAGEMENT OPTIONS There are currently two options for individuals with conductive or mixed hearing loss: SMILEY and in some cases, traditional amplification. This patient cannot use traditional amplification and is interested in bone-conducted hearing options. The following topics were discussed in great detail and specifically related the patient?s particular circumstance: ? The benefits and limitations of each of the available devices ? Air-conducted vs. bone-conducted hearing ? Surgical and non-surgical considerations related to each option ? Inability to restore sound localization abilities with any of the devices ? Battery life, associated costs, and hearing aid vs. DME classifications ? Most appropriate recommendations for this patient including review of aided results ? Need for on-going special services ? Appropriate expectations INTERPRETATION, SUMMARY AND RECOMMENDATIONS Based on the audiometric testing, this patient is a candidate for SMILEY in the either ear (meets FDA criteria). DEVICE SELECTION AND COUNSELING Based on the discussion among the retail service lead merchandiser, the patient and her , the following device was selected: Humble Bundle Ponto 3 super power SMILEY. The chosen color is Mocca Brown. The patient is aware that a fitting fee of $500 will be due at the time of device fitting. Will discuss preferred side (or bilateral) with Dr. Nguyen. The patient completed and signed a Fee Information Form and a Device Selection Form. The device order was submitted. TOTAL TIME: 90 minutes Keren Gibbons B.A. Doctor of Audiology (Beth) Skate Maker Beth Soliz, PhD, CCC/A I verify that I have reviewed the history, test results, and interpretation for this patient. Jessica Soliz, Ph.D., CCC-A [employer], Hearing Implant Program copied to: Betsy Nguyen MD and FLORA Mckee THYROID UPTAKE Observed: 07/29/2018 Status: F Source: [place] SINGLE OR MULT 7:44 AM [facility] REPOSITORY [facility] Imaging Services [address] [place] [address] Thyroid Uptake Single or Mult MR#: [id number] Acct: [id number] Name: ANNE MARIE MANNING Rep #: [id number] : 1980 F 37 From: Kwame Pérez DO PCP: Mary Lopez DO Status: REG CLI Study: Thyroid Uptake Single or Mult Date of Exam: 07/29/18 Exam# [id number] Ordering Dr: Mary Lopez DO CLINICAL: 37-year-old female with reported history of thyroid nodularity and abnormal in vitro thyroid function studies. I-123 THYROID UPTAKE and SCAN COMPARISON: Thyroid ultrasound report 02/07/2018 FINDINGS: The patient was administered a 336 uCi I-123 capsule by mouth. The 4-hour I-123 radioactive iodine thyroidal uptake was calculated to be 7.8 % (normal 5 to 25 %). The 24-hour I-123 radioactive iodine thyroidal uptake was calculated to be 21.5 % (normal 5 to 40 %). The I-123 thyroid scan demonstrates relatively homogeneous radiopharmaceutical concentration throughout both lobes of a U-shaped thyroid gland. The right lobe is larger than left. There are no colloidal parenchymal hypofunctioning-cold nodules noted in either lobe of the thyroid gland. Radiopharmaceutical concentration appears evident in the region of the oropharynx. NM/Thyroid Uptake Single or Mult IMPRESSION: 1. NORMAL 4- and 24-hour I-123 radioactive iodine thyroidal uptakes. 2. 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 CC: Mary Lopez DO Deck Worker: Signed PROGRESS Observed: 07/03/2018 Status: COMPLETED Source: [place] 12:12 PM [facility] REPOSITORY HNO ID: [id number] Author: Catarino Wilkerson Service: (none) Author Type: Physician Type: Progress Notes Filed: 07/08/2018 4:07 PM Note Text: SECTION OF RHINOLOGY, SINUS AND SKULL BASE SURGERY Head and Neck [place] NOTE CC: sinus issues ASSESSMENT and PLAN: Anne Marie Manning is a 37 year old female with PMH of DM2, depression, asthma and sarcoidosis, chronic rhinosinusitis s/p 10/08/17 bilateral max, ethmoid, shenoid, turbinate reduction. She presents today after continued congestion, anosmia, dysgeusia despite no evidence of persistent sinusitis and maximal medical therapy. 1) Nasal Endoscopy today reveals improved generalized edema without mucopurulence, sinuses widely patent 2) Continue budesonide rinses BID 3) Patient to see her community relations coordinator in July 4) Follow up in 4 months HPI: Anne Marie Manning is a 37 year old female with a history of DM2, depression, asthma and sarcoidosis, chronic rhinosinusitis s/p 10/08/17 bilateral max, ethmoid, shenoid, turbinate reduction. Was last seen on 01/30/18. She was started on BID budesonide, doxy (following 2 month course of bactrim) and prednisone with persistent congestion, no improvement ing smell or taste. She reports daily yellow drainage. She thinks she had some initial benefit from the surgery, but now this is back to where she was prior. She was prescribed steroids by her PCP 1 week ago for cough (dexamethasone x 7 days - unclear as to the dosage). Since last seen, she reports feeling fatigue, generalized malaise. She has undergone thyroid FNA. She also complains of constant coughing but no rhinorrhea. She does have a wet cough. She has been evaluated and told her lungs sound ok. And per PCP do not think cough is from he lungs. Has not seen pulmonary. PHYSICAL EXAM: Constitutional: ? General appearance: well developed, well nourished, without obvious deformities ? Communication: the patient speaks with a normal voice with intermittent hoarseness Head and Face: ? Overall appearance: plethoric face and neck, no obvious scars, lesions or masses ?? Facial strength: normal and equal bilaterally . No tenderness to palpation Ears, Nose, Mouth, Throat: ? External ears and nose: normal in appearance, without scars, lesions, or masses ? Ears: Bilateral T-tubes in place, some visible fluid behind TMs, TMs appear thickened ? Nasal exam: the mucosa is pink, the septum is midline, and the visible turbinates are normal on anterior rhinoscopy ? Oral cavity and oropharynx: The lips, the oral mucosa, hard and soft palates, tongue, tonsil area, and posterior pharyngeal mucosa are without lesions; there are two small apthous ulcerations of the buccal mucosa ? Neck: the neck appears symmetric without scars, and on palpation is without masses or lymphadenopathy however is plethoric Respiratory: . Normal respirations on inspection Neurological . Normal mental status . Normal orientation . Cranial Nerves 3-12 intact PROCEDURE NOTE: Procedure: Nasal endoscopy Indication: sinusitis Findings: After topical decongestion with a lidocaine/phenylephrine mix, rigid endoscopy was performed using a 30 degree endoscope. The septum was deviated to the right. Both MT were in good position and the middle meatii were clear. Patent sinuses. There is improved generalized edema but no mucopurulence. MARINE FISHERIES TECHNICIAN was clear. There were no complications and the patient tolerated the procedure well. Cl Red MD Fellow Section of Rhinology and Advanced Skull Base Surgery Disclosure: Dr. Wilkerson receives payments from [employer] and/or [employer] for conducting educational activities and/or consulting. An [employer] and/or [employer] product may be used in your care. Dr. Wilkerson does not receive any money for products he/she or any other [facility] physicians prescribe or use. Dr. Wilkerson's choice on which product to use in your case was not influenced by his/her relationship with [employer] and/or [employer]. Your physician selected the product that in his or her hands is believed to be the best option for your treatment. I performed the history and physical exam of Anne Marie Manning I discussed the management of Anne Marie Manning with the resident and/or nurse practicioner. Endoscopic exam was performed jointly by resident physician and me. I reviewed the above note and agree with the documented HPI, exams and findings and plan of care. Catarino Wilkerson MD CNOV Observed: 07/03/2018 Status: COMPLETED Source: [place] 11:45 AM [facility] REPOSITORY Office Visit (OTOLMN) ANNE MARIE MANNING ([id number]) 1980 F Date Time Provider Department 07/03/18 11:45 AM CATARINO WILKERSON OTOLMN During your visit today, we recorded the following information about you: Respiration Weight Height 20/minute 124.7 kg 1.702 m Emili Gaxiola 07/03/2018 12:06 PM Signed Tobacco Use: 1 packs/day, for 10 years. Quit 01/25/2013. Types: Cigarettes Was smoking cessation packet given? N/A - Patient is a non- smoker or quit >1 year ago. Was a referral initiated?N/A Patient is a non-smoker Catarino Wilkerson MD 07/08/2018 4:07 PM Signed SECTION OF RHINOLOGY, SINUS AND SKULL BASE SURGERY Head and Neck [place] NOTE CC: sinus issues ASSESSMENT and PLAN: Anne Marie Manning is a 37 year old female with PMH of DM2, depression, asthma and sarcoidosis, chronic rhinosinusitis s/p 10/08/17 bilateral max, ethmoid, shenoid, turbinate reduction. She presents today after continued congestion, anosmia, dysgeusia despite no evidence of persistent sinusitis and maximal medical therapy. 1) Nasal Endoscopy today reveals improved generalized edema without mucopurulence, sinuses widely patent 2) Continue budesonide rinses BID 3) Patient to see her community relations coordinator in July 4) Follow up in 4 months HPI: Anne Marie Manning is a 37 year old female with a history of DM2, depression, asthma and sarcoidosis, chronic rhinosinusitis s/p 10/08/17 bilateral max, ethmoid, shenoid, turbinate reduction. Was last seen on 01/30/18. She was started on BID budesonide, doxy (following 2 month course of bactrim) and prednisone with persistent congestion, no improvement ing smell or taste. She reports daily yellow drainage. She thinks she had some initial benefit from the surgery, but now this is back to where she was prior. She was prescribed steroids by her PCP 1 week ago for cough (dexamethasone x 7 days - unclear as to the dosage). Since last seen, she reports feeling fatigue, generalized malaise. She has undergone thyroid FNA. She also complains of constant coughing but no rhinorrhea. She does have a wet cough. She has been evaluated and told her lungs sound ok. And per PCP do not think cough is from he lungs. Has not seen pulmonary. PHYSICAL EXAM: Constitutional: ? General appearance: well developed, well nourished, without obvious deformities ? Communication: the patient speaks with a normal voice with intermittent hoarseness Head and Face: ? Overall appearance: plethoric face and neck, no obvious scars, lesions or masses ?? Facial strength: normal and equal bilaterally . No tenderness to palpation Ears, Nose, Mouth, Throat: ? External ears and nose: normal in appearance, without scars, lesions, or masses ? Ears: Bilateral T-tubes in place, some visible fluid behind TMs, TMs appear thickened ? Nasal exam: the mucosa is pink, the septum is midline, and the visible turbinates are normal on anterior rhinoscopy ? Oral cavity and oropharynx: The lips, the oral mucosa, hard and soft palates, tongue, tonsil area, and posterior pharyngeal mucosa are without lesions; there are two small apthous ulcerations of the buccal mucosa ? Neck: the neck appears symmetric without scars, and on palpation is without masses or lymphadenopathy however is plethoric Respiratory: . Normal respirations on inspection Neurological . Normal mental status . Normal orientation . Cranial Nerves 3-12 intact PROCEDURE NOTE: Procedure: Nasal endoscopy Indication: sinusitis Findings: After topical decongestion with a lidocaine/phenylephrine mix, rigid endoscopy was performed using a 30 degree endoscope. The septum was deviated to the right. Both MT were in good position and the middle meatii were clear. Patent sinuses. There is improved generalized edema but no mucopurulence. MARINE FISHERIES TECHNICIAN was clear. There were no complications and the patient tolerated the procedure well. Cl Red MD Fellow Section of Rhinology and Advanced Skull Base Surgery Disclosure: Dr. Wilkerson receives payments from [employer] and/or [employer] for conducting educational activities and/or consulting. An [employer] and/or [employer] product may be used in your care. Dr. Wilkerson does not receive any money for products he/she or any other [facility] physicians prescribe or use. Dr. Wilkerson's choice on which product to use in your case was not influenced by his/her relationship with [employer] and/or [employer]. Your physician selected the product that in his or her hands is believed to be the best option for your treatment. I performed the history and physical exam of Anne Marie Manning I discussed the management of Anne Marie Manning with the resident and/or nurse practicioner. Endoscopic exam was performed jointly by resident physician and me. I reviewed the above note and agree with the documented HPI, exams and findings and plan of care. Catarino Wilkerson MD Referring Provider: SELF [200] Allergies As of Date: 07/03/2018 Noted Allergy Reaction ULTRAM (TRAMADOL HCL) 11/20/2006 8 - GI Upset Date Reviewed: 07/03/2018 Reviewed by: Emili Gaxiola - Fully Assessed Reason for Visit: Establish Care [42] Cmt: chronic pansinusitis Reason For Visit History Recorded Primary Visit Diagnosis:Chronic pansinusitis [J32.4] Prescriptions as of 07/03/2018 Sig: LAMOTRIGINE 25 MG TABLET Take 25 mg by mouth once te* BENADRYL ALLERGY ORAL Take by mouth. HYDROXYZINE PAMOATE 25 MG CAP* Take 25 mg by mouth three kenrick* BUDESONIDE 0.5 MG/2 ML SUSPEN* Use 2 mL via nebulizer twice * PREDNISONE 10 MG TABLET Take by mouth four (4) tabs x* FLUOCINOLONE ACETONIDE OIL 0.* Use 1-2 Drops in both ears on* LIRAGLUTIDE 0.6 MG/0.1 ML (18* Inject 1.8 mg subcutaneously * SODIUM CHLORIDE 0.9 % IRRIGAT* Please use to rinse area twic* LEVOTHYROXINE 25 MCG TABLET Take 1 tablet by mouth once d* CITALOPRAM 40 MG TABLET Take 60 mg by mouth once te* DOXEPIN 50 MG CAPSULE Take 50 mg by mouth daily at * XANAX ORAL Take 1 mg by mouth three time* TIZANIDINE 4 MG CAPSULE Take 4 mg by mouth daily at b* ATORVASTATIN 40 MG TABLET Take 10 mg by mouth once te* NOVOLOG SUBCUTANEOUS Inject subcutaneously. Use wi* LANTUS SUBCUTANEOUS Inject 60 Units subcutaneousl* PROMETHAZINE 50 MG TABLET Take 50 mg by mouth as needed. FREESTYLE LITE METER KIT EASY TOUCH TWIST LANCETS 33 G* LYRICA 50 MG CAPSULE Take 50 mg by mouth three kenrick* BLOOD SUGAR DIAGNOSTIC STRIPS Test blood sugar(s) 3 times d* PANTOPRAZOLE 40 MG TABLET,DEL* Take 1 tablet by mouth twice * MAGNESIUM HYDROXIDE 400 MG (1* Take 400 mg by mouth twice da* PRAMIPEXOLE 1 MG TABLET Take 1 tablet by mouth daily * OXYCODONE-ACETAMINOPHEN 5 MG-* Take 1 tablet by mouth every * FLUTICASONE 50 MCG/ACTUATION * Use 2 Sprays in each nostril * Patient not taking: Reported on 03/06/2018 Problem List As Of Date 07/03/2018 Noted Resolved Supervision of other high-risk [O09.8*INVALID FOR*11/18/2012 Supervision of other normal [Z34.80] INVALID FOR*11/18/2012 Sebaceous cyst [L72.3] INVALID FOR*11/18/2012 Type II or unspecified type diabetes mellitus w*INVALID FOR*02/06/2013 Tobacco use disorder [F17.200] INVALID FOR* H/O thyroid nodule [Z86.39] INVALID FOR* More... GERD (gastroesophageal reflux disease) [K21.9] INVALID FOR* Asthma [J45.909] INVALID FOR* Depressive disorder, not elsewhere classified [*INVALID FOR* Antiphospholipid antibody syndrome [D68.61] INVALID FOR* Genital warts [A63.0] INVALID FOR* Other and unspecified hyperlipidemia [E78.5] INVALID FOR* Neuropathy in diabetes [E11.40] INVALID FOR* More... Sleep apnea [G47.30] INVALID FOR* Restless leg syndrome [G25.81] INVALID FOR* DM type 2 with diabetic peripheral neuropathy [*INVALID FOR* Lateral epicondylitis of right elbow [M77.11] INVALID FOR* Degeneration of lumbar or lumbosacral intervert*INVALID FOR* Other pain disorders related to psychological f*INVALID FOR* GERD with esophagitis [K21.0] INVALID FOR* Intractable vomiting with nausea [R11.2] INVALID FOR* History of thyroid cyst [Z86.39] INVALID FOR* Mild intermittent asthma without complication [*INVALID FOR* Chronic sinusitis [J32.9] INVALID FOR* More... Chronic diffuse otitis externa of both ears [H6*INVALID FOR* Acquired stenosis of external ear canal seconda*INVALID FOR* Mixed hearing loss, bilateral [H90.6] INVALID FOR* Dizziness and giddiness [R42] INVALID FOR* Visit Notes: >> Emili Gaxiola SunJul 03, 2018 12:06 PM Status: Signed Tobacco Use: 1 packs/day, for 10 years. Quit 01/25/2013. Types: Cigarettes Was smoking cessation packet given? N/A - Patient is a non- smoker or quit >1 year ago. Was a referral initiated?N/A Patient is a non-smoker Encounter Status:Closed by CATARINO WILKERSON MD on 07/08/18 PULMONARY FUNCTION Observed: 06/19/2018 Status: F Source: [place] TEST 2:26 PM [facility] REPOSITORY [facility] Pulmonary Services/Neurology [address] [place] [id number] MR#: [id number] Acct: [id number] Name: ANNE MARIE MANNING Rep #: [id number] : 1980 37 From: Krzysztof Argueta DO Referring Dr: Krzysztof Argueta D.O. Status: REG CLI Ordering Dr: Date: Location: [facility] Sex: F C INTRODUCTION: The patient is a 37-year-old female that presents for pulmonary function testing secondary to a diagnosis of upper airway cough syndrome. Respiratory therapy reports good patient effort. Bronchodilators were used during testing. INTERPRETATION: Forced expiration spirometry demonstrates no evidence of a large airways obstructive ventilatory defect. There was no significant response to aerosolized bronchodilators. Spirograms are of good quality and plateau normally. Body plethysmography was performed and reveals a decreased TLC to 4.79 L, 84% of predicted, indicative of an underlying mild restrictive ventilatory defect. The remainder of the lung volumes are symmetrically reduced. Diffusing capacity by single breath CO is mildly reduced at 61% of predicted. IMPRESSION: These pulmonary function studies demonstrate the presence of a mild restrictive ventilatory defect with a symmetric reduction in diffusing capacity. There are no previous pulmonary function studies available for comparison. 06/19/181425 <Electronically signed by Krzysztof Argueta DO> Date Krzysztof Argueta DO CC: Krzysztof Argueta D.O.; Mary Lopez Date Dictated: 06/19/181423 Date Transcribed: 06/19/181423 Deck Worker: SHIVANI Signed CBC W/DIFF, AUTOMATED Collected: 06/13/2018 Status: F Source: [place] 11:13 AM [facility] REPOSITORY TYPE CODE TESTS RESULT OUT OF RANGE REFERENCE UNITS LAB L100.1000 4.4-11.0 K/mm3 Normal WBC 7.9 LAB L100.1200 4.2-5.4 M/mm3 Normal RBC 4.29 LAB L100.1300 12.0-15.0 g/dl Low HGB 11.4 LAB L100.1400 37-47 % Low HCT 35.3 LAB L100.1500 81-99 fL Normal MCV 82.3 LAB L100.1600 27.0-32.0 pg Low MCH 26.6 LAB L100.1700 32-36 g/gl Normal MCHC 32.3 LAB L100.1810 11.6-14.6 % High RDW CV 15.2 LAB L100.1820 35.1-43.9 fl High RDW SD 45.2 LAB L100.1900 150-450 K/mm3 Normal PLT 307 LAB L100.2000 6.2-12.0 fl Normal MPV 10.2 LAB L100.2100 47-70 % Normal NEUT% 69.4 LAB L100.2200 19-41 % Normal LY% 22.2 LAB L100.2300 0-10 % Normal MONO% 6.4 LAB L100.2400 0-5 % Normal EO% 1.5 LAB L100.2500 0-1 % Normal BASO% 0.1 LAB L100.2550 0.0-0.9 % Normal IM GRAN % 0.400 Result Comment: IG% - Immature Granulocytes (promyelocytes, myelocytes and metamyelocytes) > 1% indicates that a LEFT SHIFT is Present. LAB L100.2620 2.0-7.7 X10 3/uL Normal Absolute Neut 5.5 LAB L100.2720 0.83-4.51 X10 3/ul Normal Absolute Lymph 1.76 Performed By: #### L100.0100 #### [facility] [address] [place], [address] LIPID PROFILE Collected: 06/13/2018 Status: F Source: DIA[place] 11:13 AM [facility] REPOSITORY TYPE CODE TESTS RESULT OUT OF RANGE REFERENCE UNITS LAB L501.4900 200 mg/dL Normal CHOL 142 Result Comment: <200 mg/dL Desirable 200-240 mg/dL Borderline >240 mg/dL High Risk LAB L501.5000 mg/dL High TRIG 204 Result Comment: The drugs N-Acetylcysteine and Metamizole may falsely depress this assay. Serum Triglycerides Reference Interval Normal <150 mg/dL Borderline high 150 - 199 mg/dL High 200 - 499 mg/dL Very High > or = 500 mg/dL LAB L501.6400 mg/dL Low HDL 33 Result Comment: The drugs N-Acetylcysteine and Metamizole may falsely depress this assay. Reference Range HDL <40 mg/dL Low HDL Cholesterol HDL >or= 60 mg/dL High HDL Cholesterol LAB L501.6500 0-130 mg/dL Normal LDL 68 LAB L501.6600 5-40 mg/dL High VLDL 41 Performed By: #### L500.4100, L501.88381, L501.9520, L506.0400 #### [facility] [address]. [place], [place], [address] FREE T3 Collected: 06/13/2018 Status: F Source: DIANA 11:13 AM [facility] REPOSITORY TYPE CODE TESTS RESULT OUT OF RANGE REFERENCE UNITS LAB L501.61856 2.18-3.98 pg/mL Normal FREE T3 3.0 Performed By: #### L500.4100, L501.77278, L501.9520, L506.0400 #### [facility] [address] [place], [address] THYROID STIM HORMONE Collected: 06/13/2018 Status: F Source: [place] (TSH) 11:13 AM [facility] REPOSITORY TYPE CODE TESTS RESULT OUT OF RANGE REFERENCE UNITS LAB L501.9520 0.358-3.74 uIU/mL Low TSH 0.17 Performed By: #### L500.4100, L501.31451, L501.9520, L506.0400 #### [facility] [address] [place], [place], [address] T4 FREE DIRECT Collected: 06/13/2018 Status: F Source: [place] 11:13 AM [facility] REPOSITORY TYPE CODE TESTS RESULT OUT OF REFERENCE UNITS RANGE LAB L506.0400 0.76-1.46 ng/dL High T4 FREE 1.67 DIRECT Performed By: #### L500.4100, L501.86214, L501.9520, L506.0400 #### [facility] [address] [place], [place], [address] THYROID ANTIBODIES Collected: 06/13/2018 Status: F Source: [place] 11:13 AM [facility] REPOSITORY TYPE CODE TESTS RESULT OUT OF RANGE REFERENCE UNITS LAB L3300.6900 0-34 IU/mL Normal TPO AB 10 6676 LAB L3300.7027 0.0-0.9 IU/mL Normal TG AB < 1.0 Result Comment: Thyroglobulin Antibody measured by Carmelo Leo Methodology Performed at: - [facility] [address] [id number] Wellness Spa Manager: Chase Cohn PhD, Phone: [phone] Performed By: #### L3300.6750 #### [facility] (refer to report for specific site) refer to report for address and phone number CRP Collected: 05/01/2018 Status: F Source: [place] 10:29 AM [facility] REPOSITORY TYPE CODE TESTS RESULT OUT OF RANGE REFERENCE UNITS LAB L501.6710 0.0-3.0 mg/L High 5.40 C-REACTIVE PROT Result Comment: C-Reactive Protein (CRP) provides useful information for the diagnosis, therapy and monitoring of inflammatory processes and associated diseases. For the evaluation of Relative Risk for Cardiovascular Disease, a High Sensitivity CRP (HSCRP) should be ordered. Performed By: #### L501.6710 #### [facility] [address] [place], [place], [address] ERYTHROCYTE SED RATE Collected: 05/01/2018 Status: F Source: [place] 10:29 AM [facility] REPOSITORY TYPE CODE TESTS RESULT OUT OF RANGE REFERENCE UNITS LAB L102.0000 0-20 mm/hr High SED RATE 37 Performed By: #### L101.9900, L100.0100 #### [facility] [address] [place], [place], [address] CBC W/DIFF, AUTOMATED Collected: 05/01/2018 Status: F Source: [place] 10:29 AM [facility] REPOSITORY TYPE CODE TESTS RESULT OUT OF RANGE REFERENCE UNITS LAB L100.1000 4.4-11.0 K/mm3 Normal WBC 6.9 LAB L100.1200 4.2-5.4 M/mm3 Normal RBC 4.38 LAB L100.1300 12.0-15.0 g/dl Low HGB 11.4 LAB L100.1400 37-47 % Low HCT 36.7 LAB L100.1500 81-99 fL Normal MCV 83.8 LAB L100.1600 27.0-32.0 pg Low MCH 26.0 LAB L100.1700 32-36 g/gl Low MCHC 31.1 LAB L100.1810 11.6-14.6 % High RDW CV 15.5 LAB L100.1820 35.1-43.9 fl High RDW SD 47.5 LAB L100.1900 150-450 K/mm3 Normal PLT 291 LAB L100.2000 6.2-12.0 fl Normal MPV 9.9 LAB L100.2100 47-70 % Normal NEUT% 59.7 LAB L100.2200 19-41 % Normal LY% 32.5 LAB L100.2300 0-10 % Normal MONO% 5.8 LAB L100.2400 0-5 % Normal EO% 1.6 LAB L100.2500 0-1 % Normal BASO% 0.3 LAB L100.2550 0.0-0.9 % Normal IM GRAN % 0.100 Result Comment: IG% - Immature Granulocytes (promyelocytes, myelocytes and metamyelocytes) > 1% indicates that a LEFT SHIFT is Present. LAB L100.2620 2.0-7.7 X10 3/uL Normal Absolute Neut 4.1 LAB L100.2720 0.83-4.51 X10 3/ul Normal Absolute Lymph 2.24 Performed By: #### L101.9900, L100.0100 #### [facility] [address] [place], [place], [address] Observed: 05/01/2018 Status: F Source: [place] CULTURE, SPUTUM 10:29 AM [facility] REPOSITORY Comments: [id number] RESPIRATORY PROFILE SERUM RTEMP Gram Stain Acceptable Specimen? Yes (<25 Epithelial cells per/lpf) Gram Stain No Epithelial cells 1+ Gram positive cocci in chains 1+ White Blood Cells Resp. Culture No Haemophilus, Streptococcus pneumoniae, or beta-hemolytic Streptococcus isolated. ORGANISM 1: Staphylococcus aureus Amount Growth Rare ORGANISM 2: Presumptive C albicans Amount Growth Very Rare Staphylococcus aureus: REACTION Benzylpenicillin NF >=0.5 R Cefoxitin *NF - Clindamycin $$ <=0.25 S Inducable Clindamycin Resistan - Erythromycin $ >=8 R Gentamicin $ <=0.5 S Levofloxacin $ 0.25 S Linezolid $$$$ 2 S Moxifloxicin *NF <=0.25 S Oxacillin NF 0.5 S Tigecycline $$$$ <=0.12 S Rifampin $$ <=0.5 S Tetracycline NF <=1 S Trimethoprim/Sulfametho $ <=10 S Vancomycin $ 1 S (NF) indicates non-formulary drug at [facility]. Approval by Infectious Disease Specialist required before non-formulary drugs may be ordered and/or dispensed. * CLSI guidelines does not recommend testing of cephalosporins. This interpretation is deduced from Beta-lactam/penicillin results. Performed By: #### M100.0800 #### [facility] [address] [place], [address] BLANCA W/ REFLEX MULT Collected: 05/01/2018 Status: F Source: [place] CONFIRM 10:29 AM [facility] REPOSITORY TYPE CODE TESTS RESULT OUT OF RANGE REFERENCE UNITS LAB L3100.5475 Negative Normal Negative BLANCA-DIRECT Result Comment: Performed at: [facility] [address] [id number] Wellness Spa Manager: Chase Cohn PhD, Phone: [phone] Performed By: #### L3100.5450 #### [facility] (refer to report for specific site) refer to report for address and phone number MISCELLANEOUS LAB Collected: 05/01/2018 Status: F Source: [place] PROCEDURE 10:29 AM [facility] REPOSITORY Order Comment: Comments: [id number] RESPIRATORY PROFILE SERUM RTEMP Test(s) Ordered: [id number] RESPIRATORY PROFILE SERUM RTEMP TYPE CODE TESTS RESULT OUT OF RANGE REFERENCE UNITS LAB L801.1541 Normal [facility] LAB TEST Result Comment: TEST RESULT UNITS REF INTERVAL Respiratory Infection Prof A Legionella pneumophila Abs. <0.91 OD ratio 0.00 - 0.90 Negative <0.91 Equivocal 0.91 - 1.09 Positive >1.09 This assay detects IgG/IgM/IgA antibodies to L. pneumophila Groups 1-6 by the EIA method. Chlamydia Antibodies, IgG <0.91 ratio 0.00 - 0.90 Negative <0.91 Equivocal 0.91 - 1.09 Positive >1.09 Adenovirus Group Ab, Qn 1:8 High Neg:<1:8 M pneumoniae IgG Abs 253 High U/mL 0 - 99 Negative: <100 Indeterminate: 100 - 320 Positive: >320 The reference interval established is intended as a baseline only. Values >100 may indicate a recent infection with Mycoplasma pneumoniae and need to be confirmed either by a positive IgM result and/or an additional specimen drawn 2-4 weeks later showing a significant increase in antibody levels. M pneumoniae IgM Abs <770 U/mL 0 - 769 Negative <770 Clinically significant amount of M. pneumoniae antibody not detected. Low Positive 770 - 950 M. pneumoniae specific IgM presumptively detected. It is recommended that another sample be collected 1-2 weeks later to assure reactivity. Positive >950 Highly significant amount of M. pneumoniae specific IgM antibody detected. [facility] ORIGINAL REPORT ON FILE IN LAB CONTAINS ADDITIONAL TEST SITE INFORMATION. Performed By: #### L801.1541 #### [facility] [address] [place], [address] EMERGENCY REPORT Observed: 04/12/2018 Status: F Source: [place] 7:45 PM [facility] NAME ACCOUNT SEX AGE ADMIT DISCHARGE PT MED. RECORD# NUMBER DATE DATE TYPE ANNE MARIE MANNING [id number] F 37 04/07/18 3 [id number] ROOM: ER DATE OF : 1980 DICTATING PHYSICIAN: Leif Sher ADDENDUM: DIAGNOSTIC DATA: Laboratory work showed a white count of 8.8, hemoglobin 12.4, hematocrit 37.5, platelet count was 328,000. Lipase was normal at 46. Sodium 134, potassium 4.2, chloride 101, CO2 25.1, BUN 15, creatinine 0.8, glucose 156. AST was 14, ALT 17, alkaline phosphatase 88, total bilirubin 0.4. Anion gap was 12. Urinalysis was very cloudy. It had a positive leukocyte esterase at 500, negative nitrite, greater than 50 white cells per high-powered field with 2+ bacteria. tests was negative. CAT scan of the abdomen and pelvis showed no obstructive uropathy. The appendix is unremarkable. No bowel obstruction, free air, or significant free fluid, hepatosplenomegaly with possible hepatic steatosis. EMERGENCY DEPARTMENT COURSE AND TREATMENT/PLAN/DISPOSITION: The patient was placed on Bactrim DS 1 p.o. b.i.d., dispensed #20 with no refill, Bentyl 20 mg 1 p.o. every 6 hours as needed for abdominal pain, dispensed #30 with no refill. She was given 1 gram of Rocephin here IV for the urinary tract infection. She is to start the Bactrim tomorrow morning. We did give her some Zofran here for her nausea, so I am going to write her a prescription for Zofran 4 mg ODT 1 p.o. every 8 hours as needed for nausea and vomiting, dispensed #15 with no refill. She is to take the medication as prescribed and to follow up with Dr. Lopez, her primary care physician, in 3 to 5 days for evaluation. I did order a urine culture, so that is pending and she can follow up with her family doctor for the results and sensitivities. The patient is discharged in a clinically stable condition. Nursing notes reviewed. DIAGNOSES: 1. Abdominal pain. 2. Urinary tract infection. Dictated By: Leif Sher DO 04/07/18 18:46 JOB #: [id number] Transcribed By: am 04/07/18 18:55 Electronically signed by: Page 1 of 2 ANNE MARIE MANNING Emergency Room Report E-Sign: Dr. Leif Sher D.O. 04/12/18 19:44 Page 2 of 2 ANNE MARIE MANNING Emergency Room Report EMERGENCY REPORT Observed: 04/12/2018 Status: F Source: [facility] 7:44 PM [facility] RE[place] NAME ACCOUNT SEX AGE ADMIT DISCHARGE PT MED. RECORD# NUMBER DATE DATE TYPE ANNE MARIE MANNING [id number] F 37 04/07/18 3 [id number] ROOM: ER DATE OF : 1980 DICTATING PHYSICIAN: Leif Sher Date seen is April 07, 2018 at 5 p.m. HISTORY OF PRESENT ILLNESS: The patient is a 37-year-old female complaining of left upper quadrant abdominal pain which radiates into her back. The pain started around 3 p.m. today She does complain of associated nausea, but denies any vomiting. She presently rates the pain as an 8 on a severity scale of 1 to 10. She describes it as burning. She states she has had some blood in her stool, but that is a chronic problem. They did a colonoscopy to try and explain that several years ago, and she did have a fissure that they repaired. The pain is worse with movement. She does complain of nausea. She denies any vomiting. PAST MEDICAL HISTORY: Chronic back pain, insulin-dependent diabetes. PAST SURGICAL HISTORY: She states she did have a colonoscopy 3 to 4 years ago. Other past surgeries include a cholecystectomy, hysterectomy, and thyroid biopsy recently. She is getting ready to follow up with her family doctor regarding the results. ALLERGIES: She is allergic to Ultram. SOCIAL HISTORY: She is not a smoker. She denies any alcohol intake. She lives with her family. REVIEW OF SYSTEMS: She denies any chest pain, shortness of breath, cough, sputum, wheezing. She does admit to abdominal pain and nausea. She denies any vomiting, diarrhea, constipation, melena, hematochezia, headache, numbness, unsteady gait, weakness, neck or joint pain, but does complain of the abdominal pain radiating into the back. Further review of systems is negative. PHYSICAL EXAMINATION: Vital signs: Blood pressure is 140/92, pulse 118, respirations 18, temperature 98.1, pulse ox 95% on room air, weight is 281 pounds. The patient is alert and oriented x3. She does appear in some dwxi-kn-qcjrmlie distress secondary to abdominal pain, but she is pleasant and cooperative. HEENT: Head appears atraumatic. Pupils are equal and reactive to light. Red reflex intact bilaterally. Extraocular muscles are intact. No conjunctival injection. No scleral icterus or lid edema. Nose: Exhibits no rhinorrhea or epistaxis. Mouth: Mucous membranes are moist. No pharyngeal erythema. Uvula is midline and elevates. Ears: TMs intact bilaterally. No erythema noted. Neck is supple. Trachea is midline. No JVD or lymphadenopathy. No Page 1 of 2 ANNE MARIE MANNING Emergency Room Report posterior cervical tenderness. Lungs: Clear to auscultation in all lung branham. No adventitious sounds are noted. No accessory muscle use. CV: Heart rate and rhythm are regular without murmur. Abdomen is soft, obese, and nontender with palpable tenderness in the left upper quadrant of the abdomen. There is some voluntary guarding, but no involuntary guarding. Back exhibits no midline or paraspinal region tenderness. No increased paraspinal muscle rigidity. Negative Gonzalo's sign. Extremities: No edema or cyanosis. Peripheral pulses are intact. No motor or sensory deficits are noted. Hand skin diving teacher are strong and symmetric. Skin is warm and dry. No diaphoresis or rash. Neurologic examination shows the patient to be alert and oriented x4. Normal speech. EMERGENCY DEPARTMENT COURSE AND TREATMENT/PLAN/DISPOSITION: Presently, we will get a CT of the abdomen and pelvis with some screening blood work, urinalysis, and then reevaluate. Dictated By: Leif Sher DO 04/07/18 17:21 JOB #: [id number] Transcribed By: am 04/07/18 17:26 Electronically signed by: E-Sign: Dr. Leif Sher D.O. 04/12/18 19:44 Page 2 of 2 ANNE MARIE MANNING Emergency Room Report SURGERY VISIT REPORT Observed: 04/08/2018 Status: F Source: [place] 12:38 PM [facility] REPOSITORY [facility] [address] [place] [address] OFFICE VISIT Date of Service: 04/08/18 MR#: [id number] Acct: [id number] Name: ANNE MARIE MANNING Rep #: [id number] : 1980 Provider: Brent Mora MD Age/Sex: 37/F Location: [facility] Status: Signed Intake Intake Visit Reasons: FU Rt Thyroid FNA Allergies tramadol HCl [From Ultra] Adverse Reaction (Verified 03/22/18 09:57) Vomiting Medications Albuterol Inhaler [Ventolin Hfa] 1 - 2 puff INHALATION Q6H PRN PRN 07/31/14 [History Confirmed 03/22/18] Magnesium 400 mg PO BID 07/31/14 [History Confirmed 03/22/18] Budesonide/Formoterol 160/4.5 [Symbicort 160/4.5 Mcg Inhaler (SP)] 2 puff INHALATION BID PRN PRN 01/27/15 [History Confirmed 03/22/18] Tizanidine HCl 4 mg PO QHS 01/27/15 [History Confirmed 03/22/18] Oxycodone HCl/Acetaminophen [Percocet 5/325] 1 tab PO Q6H PRN PRN #12 tab 02/28/15 [Rx Confirmed 03/22/18] Atorvastatin Calcium [Lipitor] 40 mg PO QHS 07/19/16 [History Confirmed 03/22/18] DiphenhydrAMINE [Benadryl] 25 mg PO BID 07/19/16 [History Confirmed 03/22/18] ALPRAZolam [Xanax] 0.5 mg PO TID PRN PRN 02/11/17 [History Confirmed 03/22/18] citalopram 40 mg tablet 60 mg PO QDAY tab 01/31/18 [History Confirmed 03/22/18] doxepin 50 mg capsule 50 mg PO QHS 01/31/18 [History Confirmed 03/22/18] fluocinolone acetonide oil 0.01 % ear drops 2 drp OTIC BID ml 01/31/18 [History Confirmed 03/22/18] insulin aspart U-100 100 unit/mL subcutaneous pen See Label Instructions SC TID ml 01/31/18 [History Confirmed 03/22/18] insulin glargine (U-100) 100 unit/mL (3 mL) subcutaneous pen 70 unit SC BID ml 01/31/18 [History Confirmed 03/22/18] levothyroxine 25 mcg tablet 25 mcg PO QDAY 01/31/18 [History Confirmed 03/22/18] liraglutide 0.6 mg/0.1 mL (18 mg/3 mL) subcutaneous pen injector 1.8 mg SC QDAY ml 01/31/18 [History Confirmed 03/22/18] pantoprazole 40 mg tablet,delayed release 40 mg PO BID 01/31/18 [History Confirmed 03/22/18] pramipexole 1 mg tablet 1 mg PO BID tab 01/31/18 [History Confirmed 03/22/18] prednisone 20 mg tablet See Label Instructions PO QDAY 01/31/18 [History Confirmed 03/22/18] pregabalin 75 mg capsule 75 mg PO BID 01/31/18 [History Confirmed 03/22/18] promethazine 50 mg rectal suppository 50 mg RC QHS PRN 01/31/18 [History Confirmed 03/22/18] sterile saline rinse INTRANASAL 01/31/18 [History Confirmed 03/22/18] flash glucose sensor kit See Dose Instructions .ROUTE .MEDSUPPLY #1 ea 02/05/18 [Rx Confirmed 03/22/18] hydroxyzine HCl 25 mg tablet 25 mg PO BID PRN tab 03/20/18 [History Confirmed 03/22/18] PFSH Medical History Chronic ethmoidal sinusitis (Chronic) Chronic cough (Chronic) Depression (Chronic) Rosacea (Chronic) Anxiety (Chronic) Morbid obesity (Chronic) Atopic dermatitis (Chronic) Chronic mastoiditis (Chronic) Myalgia and myositis (Chronic) Peripheral edema (Chronic) SIRERA (obstructive sleep apnea) (Chronic) Restless legs syndrome (Chronic) Chronic back pain (Chronic) Acute DVT (deep venous thrombosis) (Resolved) Hyperlipidemia (Chronic) Sarcoidosis (Suspected) Asthma (Chronic) History of depression (Chronic) GERD (gastroesophageal reflux disease) (Chronic) DM type 2 (diabetes mellitus, type 2) (Chronic) Peripheral neuropathy (Chronic) Arthritis (Acute) Bone fracture (Acute) Recurrent UTI (Acute) Seasonal allergies (Acute) Surgical History history of sinusplasty (Resolved) History of tubal ligation (Resolved) History of total hysterectomy (Resolved) History of cholecystectomy (Resolved) lymph node removal (Acute) Family History Father Diabetes Asthma Brother Asthma Unknown Asthma Arthritis Diabetes Heart disease Hypertension Thyroid disorder Social History Smoking Status: Former smoker alcohol intake: never substance use type: does not use HPI HPI HPI: ANNE MARIE MANNING, is a 37 F who presents to the office today for follow-up from an ultrasound-guided fine-needle aspiration of her right thyroid gland. Patient had a fine-needle aspiration completed on 04/01/2018. Pathology report came back consistent with a benign follicular nodule in the specimen was adequate for evaluation. Patient has not been complaining of any change in her voice and has complained only of minimal bruising from the procedure itself. Exam Neck Other: Patient has an obese neck there are no hard palpable nodules within the thyroid gland there are no signs of lymphadenopathy. Skin Other: Patient has an atypical mole on her left chest area. It measures approximately 1 cm in length and 4 mm in width. It has darkened pigmentation and is slightly irregular in size. Assessment AND Plan Problems 1. Multinodular goiter (nontoxic) E04.2 2. Neoplasm of uncertain behavior of skin D48.5 Plan Patient will need to have yearly thyroid ultrasounds. If the nodule in question grows by more than 20% or new nodules develop that are larger than a centimeter than repeat fine-needle aspirations will need to be performed. Patient can follow- up with me on an as-needed basis. The nodules in question at this time do not exceed 4 cm. Patient will get scheduled to have the lesion on her left chest area removed in the office. I plan is to do an excisional biopsy. Wrist benefits have been reviewed procedure has been reviewed the patient has asked questions and all these have been answered. She agrees to proceed. Coding Level of Care Code Off vis,est,level 2 Diagnoses Multinodular goiter (nontoxic) E04.2 Neoplasm of uncertain behavior of skin D48.5 04/08/18 1238 <Electronically signed by Brent Mora MD> Date Brent Bowman Signature: Date (if applicable) CC: Mary Lopez DO CT ABDOMEN/PELVIS W Observed: 04/07/2018 Status: F Source: [place] [place] 8:15 PM [place] [address] Patient: ANNE MARIE MANNING Phone#: : [phone] Age: 37 Gender: F Pt. Type: ER Account: [id number] Location: [facility] Ordering: LEIF SHER Exam Date: 04/07/2018/17:43 Family Phys: MARY LOPEZ Charge Code: 326210 Physician: Bamberg Order #: [id number] DLP Dose#: PROCEDURE: CT ABDOMEN/PELVIS WITH CONTRAST COMPARISON: [facility], CT, ABDOMEN/PELVIS W CON, 10/13/2017, 22:14. INDICATIONS: Left upper quadrant pain TECHNIQUE: After obtaining the patient's consent, CT images were created with non-ionic intravenous contrast material. All CT scans at this facility use dose modulation, iterative reconstruction, and/or weight based dosing when appropriate to reduce radiation dose to as low as reasonably achievable. IV CONTRAST: Omnipaque 350,80ml TOTAL DOSE: 49.4 CTDIvol(mGy) FINDINGS: LIVER: Mild fatty changes of the liver are present. No enlargement, atrophy, abnormal density, or significant focal lesion. BILIARY: The gallbladder is absent. There is no evidence of biliary dilatation. PANCREAS: Normal. No lesion, fluid collection, ductal dilatation, or atrophy. SPLEEN: Normal. No enlargement or focal lesion. KIDNEYS: Normal. No mass, obstruction, or calcification. ADRENALS: Normal. No mass or enlargement. AORTA/VASCULAR: Normal. No aneurysm or dissection. RETROPERITONEUM: Normal. No mass or adenopathy. BOWEL/MESENTERY: Normal. No visible mass, obstruction, or bowel wall thickening. ABDOMINAL WALL: Small umbilical hernia with fat is present. URINARY BLADDER: Normal. No visible focal wall thickening, lesion, or calculus. PELVIC NODES: Normal. No adenopathy. PELVIC ORGANS: The uterus is absent. Continued Report - Page 2 of 2 Patient: ANNE MARIE MANNING Phone#: : [phone] Age: 37 Gender: F Pt. Type: ER Account: [id number] Location: 052 Ordering: LEIF SHER Exam Date: 04/07/2018/17:43 Family Phys: MARY LOPEZ Charge Code: 564800 Physician: Bamberg Order #: [id number] DLP Dose#: BONES: Normal. No bony lesion or fracture. LUNG BASES: Normal. No visible pulmonary or pleural disease. OTHER: Negative. CONCLUSION: No acute disease. Dictated by: Deepti Major MD on 04/08/2018 at 9:25 Approved by: Deepti Major MD on 04/08/2018 at 9:25 CBC Collected: 04/07/2018 Status: F Source: [place] 4:55 PM [facility] REPOSITORY TYPE CODE TESTS RESULT OUT OF RANGE REFERENCE UNITS LAB CBC(LOINC) CBC Result Comment: CBC-COMPLETE BLOOD COUNT LAB WBC(LOINC) 4.5 - 10.8 x 10EE3/UL WBC 8.8 LAB RBC(LOINC) 4.10 - x 10EE6/UL 5.30 RBC 4.64 LAB HEMOGLOBIN(LOINC 12.0 - g/dl ) 16.0 HEMOGLOBIN 12.4 LAB HEMATOCRIT(LOINC 34.0 - % ) 46.0 HEMATOCRIT 37.5 LAB MCV(LOINC) 80 - 99 fl MCV 81 LAB MCH(LOINC) 27 - 33 pg MCH 27 LAB MCHC(LOINC) 32 - 36 X10 3 MCHC 33 LAB RDW/CV(LOINC) 12.0 - % 15.6 RDW/CV High 16.2 LAB PLATELET(LOINC) 150 - 450 x10EE3/UL PLATELET 328 LAB MPV(LOINC) 6.6 - 10.5 fl MPV 8.7 Result Comment: AUTOMATED DIFFERENTIAL LAB NEUT %(LOINC) 46.0 - 76.0 % NEUT % 68.2 LAB LYMPH %(LOINC) 20.0 - 45.0 % LYMPH % 23.7 LAB MONOS %(LOINC) 0.0 - 10.0 % MONOS % 5.7 LAB EO %(LOINC) 0.0 - 7.0 % EO % 1.5 LAB BASO %(LOINC) 0.0 - 2.0 % BASO % 0.9 LAB Lymph #(LOINC) 0.80 - 2.80 x10EE3/U L Lymph # 2.10 LAB Neut #(LOINC) 1.50 - 7.10 x10EE3/U L Neut # 6.00 LAB [place] #(LOINC) 0.20 - 1.00 x10EE3/U L [place] # 0.50 LAB EO #(LOINC) 0.00 - 0.50 x10EE3/U L EO # 0.10 LAB Baso #(LOINC) 0.00 - 0.10 x10EE3/U L Baso # 0.10 LAB MANUAL DIFF(LOINC) MANUAL DIFF N/A LAB MORPHOLOGY([facility] ) MORPHOLOGY N/A Result Comment: {CD] Performed By: #### [id number] #### [place] [address] LIPASE Collected: 04/07/2018 Status: F Source: [facility] [address] [place] [address] REPOSITORY TYPE CODE TESTS RESULT OUT OF REFERENCE UNITS RANGE LAB LIPASE(LOIN 18.0 - 51.0 U/L C) LIPASE 46.0 Performed By: #### [id number] #### [place] [address] CMP WITH EGFR Collected: 04/07/2018 Status: F Source: [facility] [address] [place] [address] REPOSITORY TYPE CODE TESTS RESULT OUT OF RANGE REFERENCE UNITS LAB CMP with eGFR(LOINC) CMP with eGFR Result Comment: COMPREHENSIVE METABOLIC PANEL LAB SODIUM(LOINC) 136 - 145 mmol/l SODIUM Low 134 LAB POTASSIUM(LOINC) 3.5 - 5.1 mmol/L POTASSIUM 4.2 LAB CHLORIDE(LOINC) 98 - 107 mmol/L CHLORIDE 101 LAB CO2(LOINC) 21.0 - mmol/L 31.0 CO2 25.1 LAB GLUCOSE(LOINC) 74 - 106 mg/dl GLUCOSE High 156 LAB BUN(LOINC) 6 - 20 mg/dl BUN 15 LAB CREATININE(LOINC) 0.6 - 1.2 mg/dl CREATININE 0.8 LAB AST/SGOT(LOINC) 13 - 39 U/L AST/SGOT 14 LAB ALK PHOS(LOINC) 38 - 126 U/L ALK PHOS 88 LAB CALCIUM(LOINC) 8.6 - mg/dl 10.2 CALCIUM 9.0 LAB TOTAL 6.4 - 8.3 g/dl PROTEIN(LOINC) TOTAL PROTEIN 7.4 LAB ALBUMIN(LOINC) 3.4 - 4.8 g/dL ALBUMIN 4.0 LAB GLOBULIN(LOINC) 1.5 - 3.8 G/DL GLOBULIN 3.4 LAB A/G RATIO(LOINC) 0.9 - 1.6 A/G RATIO 1.2 LAB TOTAL BILI(LOINC) 0.0 - 1.5 mg/dl TOTAL BILI 0.4 LAB B/C RATIO(LOINC) 0 - 30 ratio B/C RATIO 19 LAB ALT/SGPT(LOINC) 8 - 35 U/L ALT/SGPT 17 LAB ANION GAP(LOINC) 10 - 20 mmol/L ANION GAP 12 LAB AGE(LOINC) years AGE 37 LAB eGFR(LOINC) 60 - 999 ML/MINUTE eGFR >60 LAB eGFR(AA)(LOINC) 60 - 999 ML/MINUTE eGFR(AA) >60 Result Comment: ACCORDING TO THE NATIONAL KIDNEY DISEASE EDUCATION PROGRAM(NKDE), A NORMAL eGFR IS A VALUE GREATER THAN OR EQUAL TO 60 ML/MIN/1.73 SQ METERS. CHRONIC KIDNEY DISEASE: <60mL/MIN/1.73 SQ METERS KIDNEY FAILURE: <15mL/MIN/1.73 SQ METERS THIS TEST SHOULD ONLY BE USED FOR PATIENTS 18 YEARS OF AGE AND OLDER. Performed By: #### [id number] #### [facility],[address] [place] [address] URINALYSIS Collected: 04/07/2018 Status: F Source: [facility] 4:47 PM [facility] REPOSITORY TYPE CODE TESTS RESULT OUT OF REFERENCE UNITS RANGE LAB URINALYSIS (LOINC) URINALYSIS Result Comment: URINALYSIS LAB Specimen Type(LOINC) Specimen Type Void LAB Color(LOINC) NORMAL: YELLOW Color niesha LAB Clarity(LOINC) NORMAL: CLEAR Clarity very cloudy LAB ph(LOINC) NORMAL: 5.0-8.0 ph 5 LAB Protein(LOINC) NORMAL: NEGATIVE Protein Abnormal 30 LAB Glucose(LOINC) NORMAL: NORMAL Glucose NORM LAB Ketone(LOINC) NORMAL: NEGATIVE Ketone NEG LAB Bilirubin(LOINC) NORMAL: NEGATIVE Bilirubin NEG LAB Blood(LOINC) NORMAL: NEGATIVE Blood Abnormal 10 LAB Urobilinog(LOINC) NORMAL: NORMAL Urobilinog NORM LAB Sp Brent(LOINC) NORMAL: 1.010-1.030 Sp Brent 1.020 LAB Nitrite(LOINC) NORMAL: NEGATIVE Nitrite NEG LAB Leukocytes(LOINC) NORMAL: NEGATIVE Leukocytes Abnormal 500 LAB Microscopic(LOINC ) Microscopic SEE BELOW Result Comment: MICROSCOPIC LAB Wbc(LOINC) 0-5/hpf Wbc >50 LAB Rbc(LOINC) 0-3/hpf Rbc NONE LAB Casts(LOINC) Casts NONE LAB Crystals(LOINC) Crystals NONE LAB Amorphous(LOINC) Amorphous 1+ LAB Bacteria(LOINC) Bacteria 2+ LAB Epi Cells(LOINC) Epi Cells OCC LAB Mucous(LOINC) Mucous 2+ LAB Yeast(LOINC) Yeast NONE Performed By: #### [id number] #### [place] [address] URINE Collected: 04/07/2018 Status: F Source: [facility] 4:47 PM [facility] REPOSITORY TYPE CODE TESTS RESULT OUT OF REFERENCE UNITS RANGE LAB NEGATIVE UR(LOINC) UR NEGATIVE LAB INTERNAL QC(LOINC) INTERNAL QC PASS LAB EXTERNAL QC DONE?(LOINC) EXTERNAL QC YES DONE? Performed By: #### [id number] #### [place] [address] PROGRESS Observed: 04/03/2018 Status: COMPLETED Source: [place] 1:46 PM [facility] REPOSITORY HNO ID: [id number] Author: Catarino Wilkerson Service: (none) Author Type: Physician Type: Progress Notes Filed: 04/06/2018 10:28 PM Note Text: SECTION OF RHINOLOGY, SINUS AND SKULL BASE SURGERY Head and Neck [place], [facility] NOTE CC: sinus issues ASSESSMENT and PLAN: Anne Marie Manning is a 37 year old female with PMH of DM2, depression, asthma and sarcoidosis, chronic rhinosinusitis s/p 10/08/17 bilateral max, ethmoid, shenoid, turbinate reduction. She presents today after continued congestion, anosmia, dysgeusia despite no evidence of persistent sinusitis and maximal medical therapy. Anosmia and dysgeusia may in fact be secondary to sarcoid vs. Depression given that endoscopy demonstrates interval improvment. 1) Nasal Endoscopy today reveals improved generalized edema without mucopurulence 2) Continue budesonide rinses BID 3) Can consider mupirocin irrigation given staph aureus culture if recurrent infection. 4) Follow up 2-3 months HPI: Anne Marie Manning is a 37 year old female with a history of DM2, depression, asthma and sarcoidosis, chronic rhinosinusitis s/p 10/08/17 bilateral max, ethmoid, shenoid, turbinate reduction. Was last seen on 01/30/18. She was started on BID budesonide, doxy (following 2 month course of bactrim) and prednisone with persistent congestion, no improvement ing smell or taste. She reports daily yellow drainage. She thinks she had some initial benefit from the surgery, but now this is back to where she was prior. She was prescribed steroids by her PCP 1 week ago for cough (dexamethasone x 7 days - unclear as to the dosage). Since last seen, she reports feeling fatigue, generalized malaise. She has undergone thyroid FNA. Culture AND Susceptibility Antibiotic Organism Organism Organism Organism Staphylococcus aureus CLINDAMYCIN ?0.25 ? S Final DOXYCYCLINE ?<=0.5 ? S Final ERYTHROMYCIN ?>=8 ? R Final GENTAMICIN ?<=0.5 ? S Final OXACILLIN ?0.5 ? S Final RIFAMPIN ?<=0.5 ? S Final TETRACYCLINE ?<=1 ? S Final TRIMETH SULFAMETH ?<=10 ? S Final VANCOMYCIN ?1 ? S Final 1 Organism: Staphylococcus aureus Antibiotic: CLINDAMYCIN Comment: Testing for inducible clindamycin resistance was performed. Organism: Staphylococcus aureus Antibiotic: OXACILLIN Comment: Oxacillin susceptible staphylococci are susceptible to other penicillinase stable penicillins, beta lactam/beta lactamase inhibitor combinations, anti staphyloccal cephems, and carbapenems. Organism: Staphylococcus aureus Antibiotic: RIFAMPIN Comment: Rifampin should not be used alone for antimicrobial therapy. PHYSICAL EXAM: Constitutional: ? General appearance: well developed, well nourished, without obvious deformities ? Communication: the patient speaks with a normal voice with intermittent hoarseness Head and Face: ? Overall appearance: plethoric face and neck, no obvious scars, lesions or masses ?? Facial strength: normal and equal bilaterally . No tenderness to palpation Ears, Nose, Mouth, Throat: ? External ears and nose: normal in appearance, without scars, lesions, or masses ? Ears: Bilateral T-tubes in place, some visible fluid behind TMs, TMs appear thickened ? Nasal exam: the mucosa is pink, the septum is midline, and the visible turbinates are normal on anterior rhinoscopy ? Oral cavity and oropharynx: The lips, the oral mucosa, hard and soft palates, tongue, tonsil area, and posterior pharyngeal mucosa are without lesions; there are two small apthous ulcerations of the buccal mucosa ? Neck: the neck appears symmetric without scars, and on palpation is without masses or lymphadenopathy however is plethoric Respiratory: . Normal respirations on inspection Neurological . Normal mental status . Normal orientation . Cranial Nerves 3-12 intact PROCEDURE NOTE: Procedure: Nasal endoscopy Indication: sinusitis Findings: After topical decongestion with a lidocaine/phenylephrine mix, rigid endoscopy was performed using a 30 degree endoscope. The septum was deviated to the right. Both MT were in good position and the middle meatii were clear. Patent sinuses. There is improved generalized edema but no mucopurulence. [employer] TECHNICIAN was clear. There were no complications and the patient tolerated the procedure well. Disclosure: Dr. Wilkerson receives payments from [employer] and/or [employer] for conducting educational activities and/or consulting. An [employer] and/or [employer] product may be used in your care. Dr. Wilkerson does not receive any money for products he/she or any other [facility] physicians prescribe or use. Dr. Wilkerson's choice on which product to use in your case was not influenced by his/her relationship with [employer]/or [employer]. Your physician selected the product that in his or her hands is believed to be the best option for your treatment. I performed the history and physical exam of Anne Marie Manning I discussed the management of Anne Marie Manning with the resident and/or nurse practicioner. Endoscopic exam was performed jointly by resident physician and me. I reviewed the above note and agree with the documented HPI, exams and findings and plan of care. MD QUOC Vyas Observed: 04/03/2018 Status: COMPLETED Source: [place] 1:00 PM [facility] REPOSITORY Office Visit (OTOLMN) ANNE MARIE MANNING ([id number]) 1980 F Date Time Provider Department 04/03/18 1:00 PM CATARINO WILKERSON OTOLMN During your visit today, we recorded the following information about you: Radha Patrick Ma 04/03/2018 1:40 PM Signed Tobacco Use: 1 packs/day, for 10 years. Quit 01/25/2013. Types: Cigarettes Was smoking cessation packet given? N/A - Patient is a non- smoker or quit >1 year ago. Was a referral initiated?N/A Patient is a non-smoker Catarino Wilkerson MD 04/06/2018 10:28 PM Signed SECTION OF RHINOLOGY, SINUS AND SKULL BASE SURGERY Head and Neck [place], [facility] NOTE CC: sinus issues ASSESSMENT and PLAN: Anne Marie Manning is a 37 year old female with PMH of DM2, depression, asthma and sarcoidosis, chronic rhinosinusitis s/p 10/08/17 bilateral max, ethmoid, shenoid, turbinate reduction. She presents today after continued congestion, anosmia, dysgeusia despite no evidence of persistent sinusitis and maximal medical therapy. Anosmia and dysgeusia may in fact be secondary to sarcoid vs. Depression given that endoscopy demonstrates interval improvment. 1) Nasal Endoscopy today reveals improved generalized edema without mucopurulence 2) Continue budesonide rinses BID 3) Can consider mupirocin irrigation given staph aureus culture if recurrent infection. 4) Follow up 2-3 months HPI: Anne Marie Manning is a 37 year old female with a history of DM2, depression, asthma and sarcoidosis, chronic rhinosinusitis s/p 10/08/17 bilateral max, ethmoid, shenoid, turbinate reduction. Was last seen on 01/30/18. She was started on BID budesonide, doxy (following 2 month course of bactrim) and prednisone with persistent congestion, no improvement ing smell or taste. She reports daily yellow drainage. She thinks she had some initial benefit from the surgery, but now this is back to where she was prior. She was prescribed steroids by her PCP 1 week ago for cough (dexamethasone x 7 days - unclear as to the dosage). Since last seen, she reports feeling fatigue, generalized malaise. She has undergone thyroid FNA. Culture AND Susceptibility Antibiotic Organism Organism Organism Organism Staphylococcus aureus CLINDAMYCIN ?0.25 ? S Final DOXYCYCLINE ?<=0.5 ? S Final ERYTHROMYCIN ?>=8 ? R Final GENTAMICIN ?<=0.5 ? S Final OXACILLIN ?0.5 ? S Final RIFAMPIN ?<=0.5 ? S Final TETRACYCLINE ?<=1 ? S Final TRIMETH SULFAMETH ?<=10 ? S Final VANCOMYCIN ?1 ? S Final 1 Organism: Staphylococcus aureus Antibiotic: CLINDAMYCIN Comment: Testing for inducible clindamycin resistance was performed. Organism: Staphylococcus aureus Antibiotic: OXACILLIN Comment: Oxacillin susceptible staphylococci are susceptible to other penicillinase stable penicillins, beta lactam/beta lactamase inhibitor combinations, anti staphyloccal cephems, and carbapenems. Organism: Staphylococcus aureus Antibiotic: RIFAMPIN Comment: Rifampin should not be used alone for antimicrobial therapy. PHYSICAL EXAM: Constitutional: ? General appearance: well developed, well nourished, without obvious deformities ? Communication: the patient speaks with a normal voice with intermittent hoarseness Head and Face: ? Overall appearance: plethoric face and neck, no obvious scars, lesions or masses ?? Facial strength: normal and equal bilaterally . No tenderness to palpation Ears, Nose, Mouth, Throat: ? External ears and nose: normal in appearance, without scars, lesions, or masses ? Ears: Bilateral T-tubes in place, some visible fluid behind TMs, TMs appear thickened ? Nasal exam: the mucosa is pink, the septum is midline, and the visible turbinates are normal on anterior rhinoscopy ? Oral cavity and oropharynx: The lips, the oral mucosa, hard and soft palates, tongue, tonsil area, and posterior pharyngeal mucosa are without lesions; there are two small apthous ulcerations of the buccal mucosa ? Neck: the neck appears symmetric without scars, and on palpation is without masses or lymphadenopathy however is plethoric Respiratory: . Normal respirations on inspection Neurological . Normal mental status . Normal orientation . Cranial Nerves 3-12 intact PROCEDURE NOTE: Procedure: Nasal endoscopy Indication: sinusitis Findings: After topical decongestion with a lidocaine/phenylephrine mix, rigid endoscopy was performed using a 30 degree endoscope. The septum was deviated to the right. Both MT were in good position and the middle meatii were clear. Patent sinuses. There is improved generalized edema but no mucopurulence. [employer] TECHNICIAN was clear. There were no complications and the patient tolerated the procedure well. Disclosure: Dr. Wilkerson receives payments from [employer] and/or [employer] for conducting educational activities and/or consulting. An [employer] and/or [employer] product may be used in your care. Dr. Wilkerson does not receive any money for products he/she or any other [facility] physicians prescribe or use. Dr. Wilkerson's choice on which product to use in your case was not influenced by his/her relationship with [employer]/or [employer]. Your physician selected the product that in his or her hands is believed to be the best option for your treatment. I performed the history and physical exam of Anne Marie Manning I discussed the management of Anne Marie Manning with the resident and/or nurse practicioner. Endoscopic exam was performed jointly by resident physician and me. I reviewed the above note and agree with the documented HPI, exams and findings and plan of care. Catarino Wilkerson MD Referring Provider: SELF [200] Allergies As of Date: 04/03/2018 Noted Allergy Reaction ULTRAM (TRAMADOL HCL) 11/20/2006 8 - GI Upset Date Reviewed: 04/03/2018 Reviewed by: Radha Patrick Ma - Fully Assessed Reason for Visit: Follow Up [171] Cmt: Pt c/o sinus issues Primary Visit Diagnosis:Chronic pansinusitis [J32.4] Prescriptions as of 04/03/2018 Sig: BENADRYL ALLERGY ORAL Take by mouth. HYDROXYZINE PAMOATE 25 MG CAP* Take 25 mg by mouth three kenrick* BUDESONIDE 0.5 MG/2 ML SUSPEN* Use 2 mL via nebulizer twice * FLUOCINOLONE ACETONIDE OIL 0.* Use 1-2 Drops in both ears on* LIRAGLUTIDE 0.6 MG/0.1 ML (18* Inject 1.8 mg subcutaneously * SODIUM CHLORIDE 0.9 % IRRIGAT* Please use to rinse area twic* LEVOTHYROXINE 25 MCG TABLET Take 1 tablet by mouth once d* CITALOPRAM 40 MG TABLET Take 60 mg by mouth once te* DOXEPIN 50 MG CAPSULE Take 50 mg by mouth daily at * XANAX ORAL Take 1 mg by mouth three time* TIZANIDINE 4 MG CAPSULE Take 4 mg by mouth daily at b* ATORVASTATIN 40 MG TABLET Take 10 mg by mouth once te* NOVOLOG SUBCUTANEOUS Inject subcutaneously. Use wi* LANTUS SUBCUTANEOUS Inject 60 Units subcutaneousl* PROMETHAZINE 50 MG TABLET Take 50 mg by mouth as needed. FREESTYLE LITE METER KIT LYRICA 50 MG CAPSULE Take 50 mg by mouth three kenrick* PANTOPRAZOLE 40 MG TABLET,DEL* Take 1 tablet by mouth twice * MAGNESIUM HYDROXIDE 400 MG (1* Take 400 mg by mouth twice da* PRAMIPEXOLE 1 MG TABLET Take 1 tablet by mouth daily * OXYCODONE-ACETAMINOPHEN 5 MG-* Take 1 tablet by mouth every * PREDNISONE 10 MG TABLET Take by mouth four (4) tabs x* Patient not taking: Reported on 03/06/2018 FLUTICASONE 50 MCG/ACTUATION * Use 2 Sprays in each nostril * Patient not taking: Reported on 03/06/2018 EASY TOUCH TWIST LANCETS 33 G* BLOOD SUGAR DIAGNOSTIC STRIPS Test blood sugar(s) 3 times d* Problem List As Of Date 04/03/2018 Noted Resolved Supervision of other high-risk [O09.8*INVALID FOR*11/18/2012 Supervision of other normal [Z34.80] INVALID FOR*11/18/2012 Sebaceous cyst [L72.3] INVALID FOR*11/18/2012 Type II or unspecified type diabetes mellitus w*INVALID FOR*02/06/2013 Tobacco use disorder [F17.200] INVALID FOR* H/O thyroid nodule [Z86.39] INVALID FOR* More... GERD (gastroesophageal reflux disease) [K21.9] INVALID FOR* Asthma [J45.909] INVALID FOR* Depressive disorder, not elsewhere classified [*INVALID FOR* Antiphospholipid antibody syndrome [D68.61] INVALID FOR* Genital warts [A63.0] INVALID FOR* Other and unspecified hyperlipidemia [E78.5] INVALID FOR* Neuropathy in diabetes [E11.40] INVALID FOR* More... Sleep apnea [G47.30] INVALID FOR* Restless leg syndrome [G25.81] INVALID FOR* DM type 2 with diabetic peripheral neuropathy [*INVALID FOR* Lateral epicondylitis of right elbow [M77.11] INVALID FOR* Degeneration of lumbar or lumbosacral intervert*INVALID FOR* Other pain disorders related to psychological f*INVALID FOR* GERD with esophagitis [K21.0] INVALID FOR* Intractable vomiting with nausea [R11.2] INVALID FOR* History of thyroid cyst [Z86.39] INVALID FOR* Mild intermittent asthma without complication [*INVALID FOR* Chronic sinusitis [J32.9] INVALID FOR* More... Chronic diffuse otitis externa of both ears [H6*INVALID FOR* Acquired stenosis of external ear canal seconda*INVALID FOR* Mixed hearing loss, bilateral [H90.6] INVALID FOR* Dizziness and giddiness [R42] INVALID FOR* Visit Notes: >> Radha Patrick Ma SunApr 03, 2018 1:40 PM Status: Signed Tobacco Use: 1 packs/day, for 10 years. Quit 01/25/2013. Types: Cigarettes Was smoking cessation packet given? N/A - Patient is a non- smoker or quit >1 year ago. Was a referral initiated?N/A Patient is a non-smoker Medications Discontinued During This Encounter Lancets lancets 150 * 11 06/03/2015 04/03/2018 Sig: Test blood sugar(s) three times daily. Dx: 250.02. Insulin: Yes Disc: Duplicate Entry Lancing Device with Lancets Kit 1 Kit 0 11/05/2012 04/03/2018 Sig: Lancet Device Dx: 250.02 Disc: Duplicate Entry Disposition: Return in about 3 months (around 07/04/2018). Follow-up and Disposition History Recorded Encounter Status:Closed by CATARINO WILKERSON MD on 04/06/18 SURGERY VISIT REPORT Observed: 04/01/2018 Status: F Source: [place] 2:37 PM [facility] REPOSITORY [facility] [address] [place] [address]. [address] [place] [address] OFFICE VISIT Date of Service: 04/01/18 MR#: [id number] Acct: [id number] Name: ANNE MARIE MANNING Rep #: [id number] : 1980 Provider: Brent Mora MD Age/Sex: 37/F [place] [facility] Status: Signed Intake Intake Visit Reasons: Right thyroid FNA Allergies tramadol HCl [From [facility]] Adverse Reaction (Verified 03/22/18 09:57) Vomiting Medications Albuterol Inhaler [Ventolin Hfa] 1 - 2 puff INHALATION Q6H PRN PRN 07/31/14 [History Confirmed 03/22/18] Magnesium 400 mg PO BID 07/31/14 [History Confirmed 03/22/18] Budesonide/Formoterol 160/4.5 [Symbicort 160/4.5 Mcg Inhaler (SP)] 2 puff INHALATION BID PRN PRN 01/27/15 [History Confirmed 03/22/18] Tizanidine HCl 4 mg PO QHS 01/27/15 [History Confirmed 03/22/18] Oxycodone HCl/Acetaminophen [Percocet 5/325] 1 tab PO Q6H PRN PRN #12 tab 02/28/15 [Rx Confirmed 03/22/18] Atorvastatin Calcium [Lipitor] 40 mg PO QHS 07/19/16 [History Confirmed 03/22/18] DiphenhydrAMINE [Benadryl] 25 mg PO BID 07/19/16 [History Confirmed 03/22/18] ALPRAZolam [Xanax] 0.5 mg PO TID PRN PRN 02/11/17 [History Confirmed 03/22/18] citalopram 40 mg tablet 60 mg PO QDAY tab 01/31/18 [History Confirmed 03/22/18] doxepin 50 mg capsule 50 mg PO QHS 01/31/18 [History Confirmed 03/22/18] fluocinolone acetonide oil 0.01 % ear drops 2 drp OTIC BID ml 01/31/18 [History Confirmed 03/22/18] insulin aspart U-100 100 unit/mL subcutaneous pen See Label Instructions SC TID ml 01/31/18 [History Confirmed 03/22/18] insulin glargine (U-100) 100 unit/mL (3 mL) subcutaneous pen 70 unit SC BID ml 01/31/18 [History Confirmed 03/22/18] levothyroxine 25 mcg tablet 25 mcg PO QDAY 01/31/18 [History Confirmed 03/22/18] liraglutide 0.6 mg/0.1 mL (18 mg/3 mL) subcutaneous pen injector 1.8 mg SC QDAY ml 01/31/18 [History Confirmed 03/22/18] pantoprazole 40 mg tablet,delayed release 40 mg PO BID 01/31/18 [History Confirmed 03/22/18] pramipexole 1 mg tablet 1 mg PO BID tab 01/31/18 [History Confirmed 03/22/18] prednisone 20 mg tablet See Label Instructions PO QDAY 01/31/18 [History Confirmed 03/22/18] pregabalin 75 mg capsule 75 mg PO BID 01/31/18 [History Confirmed 03/22/18] promethazine 50 mg rectal suppository 50 mg RC QHS PRN 01/31/18 [History Confirmed 03/22/18] sterile saline rinse INTRANASAL 01/31/18 [History Confirmed 03/22/18] flash glucose sensor kit See Dose Instructions .ROUTE .MEDSUPPLY #1 ea 02/05/18 [Rx Confirmed 03/22/18] hydroxyzine HCl 25 mg tablet 25 mg PO BID PRN tab 03/20/18 [History Confirmed 03/22/18] PFSH Medical History Chronic ethmoidal sinusitis (Chronic) Chronic cough (Chronic) Depression (Chronic) Rosacea (Chronic) Anxiety (Chronic) Morbid obesity (Chronic) Atopic dermatitis (Chronic) Chronic mastoiditis (Chronic) Myalgia and myositis (Chronic) Peripheral edema (Chronic) SIERRA (obstructive sleep apnea) (Chronic) Restless legs syndrome (Chronic) Chronic back pain (Chronic) Acute DVT (deep venous thrombosis) (Resolved) Hyperlipidemia (Chronic) Sarcoidosis (Suspected) Asthma (Chronic) History of depression (Chronic) GERD (gastroesophageal reflux disease) (Chronic) DM type 2 (diabetes mellitus, type 2) (Chronic) Peripheral neuropathy (Chronic) Arthritis (Acute) Bone fracture (Acute) Recurrent UTI (Acute) Seasonal allergies (Acute) Surgical History history of sinusplasty (Resolved) History of tubal ligation (Resolved) History of total hysterectomy (Resolved) History of cholecystectomy (Resolved) lymph node removal (Acute) Family History Father Diabetes Asthma Brother Asthma Unknown Asthma Arthritis Diabetes Heart disease Hypertension Thyroid disorder Social History Smoking Status: Former smoker alcohol intake: never substance use type: does not use HPI HPI HPI: ANNE MARIE MANNING, is a 37 F who presents to the office today for Office Procedures Fine Needle Aspiration Provider Documentation Details: Preoperative diagnosis: Multinodular goiter Postoperative diagnosis: The same Procedure: Ultrasound-guided fine-needle aspiration of dominant right thyroid nodule Surgeon: Abby Procedure: Ultrasound of the right thyroid gland revealed a nodule in question. I prepped the skin with alcohol. I injected 1% lidocaine plain. Under ultrasound guidance I took 3 passes with a 22-gauge needle. I plated these all on glass slides. Sterile dressings were applied. The patient tolerated the procedure well. Alert Finisher Polisher Alert Billing: Yes FNA [id number] Thyroid Procedure Time Out Time Out Informed consent given: Yes Consent signed: Yes Time out checklist: patient, procedure, site marked/identified, positioning of patient, supplies available, allergies confirmed, team agrees on procedure Time out staff in room: Yes Time out verified: Yes Time out date: 04/01/18 Time out time: 14:15 Assessment AND Plan Orders Orders: Coding Level of Care Code No Charge Additional Codes FNA - Fine Needle Aspiration: 28464 Thyroid (70832) 04/01/18 1437 <Electronically signed by Brent Mora MD> Date Brent Mora MD Cosigner Signature: Date (if applicable) CC: Mary Lopez DO ASPIRATION (SLIDES Observed: 04/01/2018 Status: F Source: [place] ONLY) 2:18 PM [facility] REPOSITORY Patient: ANNE MARIE MANNING : 1980 (37/F) Acct Num: [id number] Phys: Abby LAW,Brent Unit Num: [id number] Loc: [facility] Specimen: [id number] Received: 04/02/18 - 9412 Spec Type: ASPIRATION TISSUES TISSUES: Thyroid gland, NOS COMMENT Immediate cytologic evaluation to determine adequacy is not applicable. Correlation with clinical, radiologic findings and appropriate follow up are necessary. CYTOLOGY GROSS Received are 12 smears labeled with the patient's name and designated per the requisition as FNA right thyroid. Submitted for staining. / CC:cc 04/03/18 TC:5 CPT: 24108 CYTOLOGY STUDY Slides are reviewed. The specimen is adequate for evaluation. The specimen consists of benign follicular cells and colloid. DIAGNOSIS CYTOLOGY Right thyroid, ultrasound guided FNA (smears): Consistent with benign follicular nodule. See cytology study and comment. SJ:samir 04/04/18 HEADER OPERATION: Ultrasound guided fine needle aspiration, right thyroid PRE-OP DIAGNOSIS: Multinodular goiter E04.2 TISSUE SUBMITTED: Fine needle aspiration, right thyroid Signed Davy Culver 04/04/18 <signature on file> Performed By: #### PASPS #### [facility] [address]. [place], [place], [address] SURGERY VISIT REPORT Observed: 03/23/2018 Status: F Source: [place] 9:35 AM [facility] REPOSITORY [facility] [address] [place] [address] OFFICE VISIT Date of Service: 03/22/18 MR#: [id number] Acct: [id number] Name: ANNE MARIE MANNING Rep #: [id number] : 1980 Provider: Brent Mora MD Age/Sex: 37/F Location: [facility] Status: Signed Intake Vital Signs03/22/18 Height 5 ft 7 in 03/22/18 Weight: 286 lb 03/22/18 Body Mass Index (BMI) 44.8 Intake Visit Reasons: Thyroid Consult [facility] 02/07 Solution Engineer Required: No Is patient in pain?: No Allergies tramadol HCl [From [facility]] Adverse Reaction (Verified 03/22/18 09:57) Vomiting Medications Albuterol Inhaler [Ventolin Hfa] 1 - 2 puff INHALATION Q6H PRN PRN 07/31/14 [History Confirmed 03/22/18] Magnesium 400 mg PO BID 07/31/14 [History Confirmed 03/22/18] Budesonide/Formoterol 160/4.5 [Symbicort 160/4.5 Mcg Inhaler (SP)] 2 puff INHALATION BID PRN PRN 01/27/15 [History Confirmed 03/22/18] Tizanidine HCl 4 mg PO QHS 01/27/15 [History Confirmed 03/22/18] Oxycodone HCl/Acetaminophen [Percocet 5/325] 1 tab PO Q6H PRN PRN #12 tab 02/28/15 [Rx Confirmed 03/22/18] Atorvastatin Calcium [Lipitor] 40 mg PO QHS 07/19/16 [History Confirmed 03/22/18] DiphenhydrAMINE [Benadryl] 25 mg PO BID 07/19/16 [History Confirmed 03/22/18] ALPRAZolam [Xanax] 0.5 mg PO TID PRN PRN 02/11/17 [History Confirmed 03/22/18] citalopram 40 mg tablet 60 mg PO QDAY tab 01/31/18 [History Confirmed 03/22/18] doxepin 50 mg capsule 50 mg PO QHS 01/31/18 [History Confirmed 03/22/18] fluocinolone acetonide oil 0.01 % ear drops 2 drp OTIC BID ml 01/31/18 [History Confirmed 03/22/18] insulin aspart U-100 100 unit/mL subcutaneous pen See Label Instructions SC TID ml 01/31/18 [History Confirmed 03/22/18] insulin glargine (U-100) 100 unit/mL (3 mL) subcutaneous pen 70 unit SC BID ml 01/31/18 [History Confirmed 03/22/18] levothyroxine 25 mcg tablet 25 mcg PO QDAY 01/31/18 [History Confirmed 03/22/18] liraglutide 0.6 mg/0.1 mL (18 mg/3 mL) subcutaneous pen injector 1.8 mg SC QDAY ml 01/31/18 [History Confirmed 03/22/18] pantoprazole 40 mg tablet,delayed release 40 mg PO BID 01/31/18 [History Confirmed 03/22/18] pramipexole 1 mg tablet 1 mg PO BID tab 01/31/18 [History Confirmed 03/22/18] prednisone 20 mg tablet See Label Instructions PO QDAY 01/31/18 [History Confirmed 03/22/18] pregabalin 75 mg capsule 75 mg PO BID 01/31/18 [History Confirmed 03/22/18] promethazine 50 mg rectal suppository 50 mg RC QHS PRN 01/31/18 [History Confirmed 03/22/18] sterile saline rinse INTRANASAL 01/31/18 [History Confirmed 03/22/18] flash glucose sensor kit See Dose Instructions .ROUTE .MEDSUPPLY #1 ea 02/05/18 [Rx Confirmed 03/22/18] hydroxyzine HCl 25 mg tablet 25 mg PO BID PRN tab 03/20/18 [History Confirmed 03/22/18] [facility] Medical History Chronic ethmoidal sinusitis (Chronic) Chronic cough (Chronic) Depression (Chronic) Rosacea (Chronic) Anxiety (Chronic) Morbid obesity (Chronic) Atopic dermatitis (Chronic) Chronic mastoiditis (Chronic) Myalgia and myositis (Chronic) Peripheral edema (Chronic) SIERRA (obstructive sleep apnea) (Chronic) Restless legs syndrome (Chronic) Chronic back pain (Chronic) Acute DVT (deep venous thrombosis) (Resolved) Hyperlipidemia (Chronic) Sarcoidosis (Suspected) Asthma (Chronic) History of depression (Chronic) GERD (gastroesophageal reflux disease) (Chronic) DM type 2 (diabetes mellitus, type 2) (Chronic) Peripheral neuropathy (Chronic) Arthritis (Acute) Bone fracture (Acute) Recurrent UTI (Acute) Seasonal allergies (Acute) Surgical History history of sinusplasty (Resolved) History of tubal ligation (Resolved) History of total hysterectomy (Resolved) History of cholecystectomy (Resolved) lymph node removal (Acute) Family History Father Diabetes Asthma Brother Asthma Unknown Asthma Arthritis Diabetes Heart disease Hypertension Thyroid disorder Social History Smoking Status: Former smoker alcohol intake: never substance use type: does not use HPI HPI HPI: ANNE MARIE MANNING, is a 37 F who presents to the office today for evaluation of multinodular goiter. Patient had a thyroid ultrasound completed at [facility] on 01/30/2018. She was noted to have 2 nodules on the right thyroid lobe the largest measuring 1.2 cm in greatest diameter another 4 mm nodule and on the left lobe she had a 5 mm nodule. Patient has no family history of thyroid cancer. She has never had thyroid biopsies in the past. She has no hot or cold intolerances and she is never been exposed to radiation. ROS General General: Yes fatigue; no weight change, appetite, colon cancer, breast cancer or weakness HEENT HEENT: Yes difficulty swallowing and swollen glands; no eye injury, eye surgery or hoarseness Endo Endocrine: Yes diabetes mellitus and thyroid disease; no thyroid cancer, Hair loss, heat intolerance or cold intolerance Skin Skin: Yes rash and changing moles Breast Breast: No left breast lump, right breast lump, nipple discharge, breast pain, abnormal mammogram, abnormal US or breast enlargement Musc Musculoskeletal: Yes back problems and arthritis; no rheumatoid arthritis, gout or joint pain Cardio Cardiovascular: No murmur, pacemaker, heart disease, atrial fibrillation, high blood pressure, heart attack, heart stent, palpitations, shortness of breat with exertion or chest pain Psych Psychiatric: Yes depression and anxiety; no hearing voices Resp Respiratory: Yes shortness of breath, Yes sleep apnea, Yes cough, Yes asthma, No COPD, No emphysema, No wheezing Gastro Gastrointestinal: Yes abdominal pain, Yes nausea or vomiting, Yes blood in stool, Yes acid reflux, No diarrhea, No constipation, No hemorrhoids, No ulcers, No gallbladder problem, No black,tarry stools Clem Hematologic: Yes blood disorders, Yes blood clots, No blood thinners, No bleeding, No anemia Neuro Neurologic: Yes numbness, Yes tingling, No system reviewed and no additional complaints, except as docu, No as per HPI, No abnormal walking, No abnormal hearing, No abnormal movements, No abnormal speech, No behavioral changes, No burning sensations, No confusion, No seizure-like activity, No unsteadiness, No dizziness, No localized weakness, No frequent falls, No headache(s), No lack of coordination, No loss of vision, No memory loss, No other visual disturbances, No radiating pain, No restless legs, No sensory deficit, No fainting, No tremor(s), No weakness, No other Exam HENDC Head: normocephalic, atraumatic Ears: external ears normal Mouth: moist mucous membranes Other: Thyroid Exam: No hard nodules are palpated there is no lymphadenopathy bilaterally. Her neck is morbidly obese Chest Breast Palpation: No nipple discharge Cardio Heart Sounds: no murmurs Assessment AND Plan Problems 1. Multinodular goiter (nontoxic) E04.2 Plan My plan is to perform a fine-needle aspiration of her right thyroid gland. Wrist benefits have been reviewed with the patient the patient agrees to proceed. With regards to her thyroid function I will defer this to BRIANA hammond. Coding Level of Care Code Off vis,est,level 2 Diagnoses Multinodular goiter (nontoxic) E04.2 03/23/18 0935 <Electronically signed by Brent Mora MD> Date Brent Mora MD Cosigner Signature: Date (if applicable) CC: Nguyen Hammond NP; Mary Lopez DO ENDOCRINOLOGY VISIT Observed: 03/21/2018 Status: F Source: [place] REPORT 7:37 AM [facility] REPOSITORY [facility] [address] [place] [address]. [address] [place] [address] OFFICE VISIT Date of Service: 03/20/18 MR#: [id number] Acct: [id number] Name: ANNE MARIE MANNING Rep #: [id number] : 1980 Provider: Nguyen Hammond NP Age/Sex: 37/F Location: [facility] Status: Signed HPI History of present illness HPI History of present illness Anne Marie Manning is a 37 year old female who presents for consult of diabetes type 2. and thyroid disorder. Referred by Dr. Lopez. Reports she is currently on lantus 70 units twice daily and meal insulin 15-20 units each meal with sliding scale up to 30 units as advised , and victoza 1.8 daily. She is also taking prednisone daily due to sarcoid. She is using her sliding scale to correct. Pt denies difficulty with injections or self monitoring of BG. Denies any signs of infection or irritation at site of injections. Reports taking insulin as directed PMX is complex and includesallergies, anxiety\depression, arthritis, asthma, back problems, bone fractures, UTI's, blood clots, GI problems, headaches, hyperlipidemia, neuropathy, GERD, SIERRA, Restless leg syndrome,. At time of visit: -Pt denies symptoms of hypertensive emergency (CP,SOB,DICKERSON, or blurred vision) and hypotension(dizziness or lightheadedness) -Pt denies symptoms of hypoglycemia ( sweaty, confusion, anxiety, tremor, hunger, palpitations) and hyperglycemia ( polydipsia, polyuria) -Pt denies potential medication adverse effect. Hypoglycemia Aware of hypoglycemia: When awake Able to self treat low BG: Yes Frequent low Blood sugar: No Has supply of glucagon: Yes Wore the Bright[employer] CGM during this review period. Interpretation today Diagnosed at age 16. Diet 3 meals Does not carb count her meals No I/C carb ratio Exercise No routine exercise Weight and fatigue symptoms: Denies snoring Cardiopulmonary symptoms: Denies chest pain at rest, dyspnea on exertion, lightheadedness or myalgias GI symptoms: Reports constipation and nausea/dyspepsia; denies diarrhea or vomiting Other symptoms: Denies blurry vision or change in vision Exam Const General: comfortable, well groomed Nutritional Appearance: well nourished Orientation: oriented x3 HENMT Head: normal to inspection Ears: hearing grossly normal bilaterally Mouth: oral mucosae normal, moist mucous membranes Eyes Sclera: sclerae normal Pupils: PERRL Neck Neck mass: No Thyroid: thyroid normal Resp Effort AND Inspection: normal respiratory effort, able to speak in complete sentences, symmetric chest movement Auscultation: Bilateral: Clear to Auscultation Cardio Rate: regular rate Rhythm: regular rhythm Heart Sounds: S1 normal, S2 normal, murmur GI Auscultation: normal bowel sounds Palpation: soft, no guarding Skin General: no rashes or lesions noted Diabetic Foot Pulses: L dorsalis pedis pulse: normal, R dorsalis pedis pulse: normal Monofilament test: Left foot: abnormal, Right foot: abnormal Neuro General: oriented x3 Extrem General: normal capillary refill Psych Appearance: well kempt Mental Status: mental status grossly normal Mood: congruent mood Affect: normal affect Speech and Movement: speech and movement normal Attitude: cooperative Thought Process: normal Thought Content: normal Judgment: judgment good Weight and fatigue symptoms: Denies snoring Cardiopulmonary symptoms: Denies chest pain at rest, dyspnea on exertion, lightheadedness or myalgias GI symptoms: Reports diarrhea and nausea/dyspepsia; denies constipation or vomiting Other symptoms: Denies blurry vision or change in vision Intake Vital Signs03/20/18 Height 5 ft 7 in 03/20/18 Weight: 286 lb 6 oz 03/20/18 Body Mass Index (BMI) 44.8 03/20/18 Blood Pressure 107/71 03/20/18 Blood Pressure Location Rt popliteal 03/20/18 Blood Pressure Position Sitting Intake Visit Reasons: Diabetes follow-up Solution Engineer Required: No Accompanied by: Family / Other Is patient in pain?: No Allergies tramadol HCl [From [facility]] Adverse Reaction (Verified 03/20/18 15:38) Vomiting Medications Albuterol Inhaler [Ventolin Hfa] 1 - 2 puff INHALATION Q6H PRN PRN 07/31/14 [History Confirmed 03/20/18] Magnesium 400 mg PO BID 07/31/14 [History Confirmed 03/20/18] Budesonide/Formoterol 160/4.5 [Symbicort 160/4.5 Mcg Inhaler (SP)] 2 puff INHALATION BID PRN PRN 01/27/15 [History Confirmed 03/20/18] Tizanidine HCl 4 mg PO QHS 01/27/15 [History Confirmed 03/20/18] Oxycodone HCl/Acetaminophen [Percocet 5/325] 1 tab PO Q6H PRN PRN #12 tab 02/28/15 [Rx Confirmed 03/20/18] Atorvastatin Calcium [Lipitor] 40 mg PO QHS 07/19/16 [History Confirmed 03/20/18] DiphenhydrAMINE [Benadryl] 25 mg PO BID 07/19/16 [History Confirmed 03/20/18] ALPRAZolam [Xanax] 0.5 mg PO TID PRN PRN 02/11/17 [History Confirmed 03/20/18] citalopram 40 mg tablet 60 mg PO QDAY tab 01/31/18 [History Confirmed 03/20/18] doxepin 50 mg capsule 50 mg PO QHS 01/31/18 [History Confirmed 03/20/18] fluocinolone acetonide oil 0.01 % ear drops 2 drp OTIC BID ml 01/31/18 [History Confirmed 03/20/18] insulin aspart U-100 100 unit/mL subcutaneous pen See Label Instructions SC TID ml 01/31/18 [History Confirmed 03/20/18] insulin glargine (U-100) 100 unit/mL (3 mL) subcutaneous pen 70 unit SC BID ml 01/31/18 [History Confirmed 03/20/18] levothyroxine 25 mcg tablet 25 mcg PO QDAY 01/31/18 [History Confirmed 03/20/18] liraglutide 0.6 mg/0.1 mL (18 mg/3 mL) subcutaneous pen injector 1.8 mg SC QDAY ml 01/31/18 [History Confirmed 03/20/18] pantoprazole 40 mg tablet,delayed release 40 mg PO BID 01/31/18 [History Confirmed 03/20/18] pramipexole 1 mg tablet 1 mg PO BID tab 01/31/18 [History Confirmed 03/20/18] prednisone 20 mg tablet See Label Instructions PO QDAY 01/31/18 [History Confirmed 03/20/18] pregabalin 75 mg capsule 75 mg PO BID 01/31/18 [History Confirmed 03/20/18] promethazine 50 mg rectal suppository 50 mg RC QHS PRN 01/31/18 [History Confirmed 03/20/18] sterile saline rinse INTRANASAL 01/31/18 [History Confirmed 03/20/18] flash glucose sensor kit See Dose Instructions .ROUTE .MEDSUPPLY #1 ea 02/05/18 [Rx Confirmed 02/05/18] hydroxyzine HCl 25 mg tablet 25 mg PO BID PRN tab 03/20/18 [History Confirmed 03/20/18] Is last menstrual period known: No Post menopausal: No Patient : No Nurse's Note: blood sugars : low : low high : 312 PFSH Medical History Chronic ethmoidal sinusitis (Chronic) Chronic cough (Chronic) Depression (Chronic) Rosacea (Chronic) Anxiety (Chronic) Morbid obesity (Chronic) Atopic dermatitis (Chronic) Chronic mastoiditis (Chronic) Myalgia and myositis (Chronic) Peripheral edema (Chronic) SIERRA (obstructive sleep apnea) (Chronic) Restless legs syndrome (Chronic) Chronic back pain (Chronic) Acute DVT (deep venous thrombosis) (Resolved) Hyperlipidemia (Chronic) Sarcoidosis (Suspected) Asthma (Chronic) History of depression (Chronic) GERD (gastroesophageal reflux disease) (Chronic) DM type 2 (diabetes mellitus, type 2) (Chronic) Peripheral neuropathy (Chronic) Arthritis (Acute) Bone fracture (Acute) Recurrent UTI (Acute) Seasonal allergies (Acute) Surgical History history of sinusplasty (Resolved) History of tubal ligation (Resolved) History of total hysterectomy (Resolved) History of cholecystectomy (Resolved) lymph node removal (Acute) Family History Father Diabetes Asthma Brother Asthma Unknown Asthma Arthritis Diabetes Heart disease Hypertension Thyroid disorder Social History Smoking Status: Former smoker alcohol intake: never substance use type: does not use ROS Const Constitutional: Positive for change in appetite; no anorexia, body ache, chills, fatigue, fever(s), frequent falls, decreased energy, malaise, night sweats, weakness, weight change, sleep problems, abnormal sleep pattern, other, headache(s), snoring or excessive sweating Eyes Eyes: No blurry vision, change in vision, double vision, discharge, dry eyes, bulging eyes, floaters, visual disturbances, eye pain, light sensitivity, spots in vision, tunnel vision or other ENT ENT: Positive for dizziness/vertigo, nasal congestion and nasal discharge; no abnormal hearing, ear pain, ear discharge, ear pressure, hearing loss, tinnitus, balance problems, nosebleed/epistaxis, nasal obstruction, nose pain, sinus pressure, sinus pain, post nasal drip, headache(s), facial pain, dental pain, dry mouth, difficulty swallowing, bad breath, hoarseness, lip swelling, mouth lesions, mouth pain, sore throat, tongue swelling, throat swelling, other or neck pain Resp Respiratory: Positive for cough, shortness of breath and wheezing; no change in phlegm color, chest congestion, excessive phlegm production, hemoptysis, pain on inspiration, pain with cough, snoring, stridor or other Cardio Cardiology: Positive for generalized swelling; no chest pain at rest, chest pain with exertion, leg pain with exertion, excessive sweating, shortness of breath, dyspnea on exertion, irregular heart rhythm, lightheadedness, orthopnea, radiating jaw, neck or arm pain, fast heart rate, slow heart rate, palpitations or other Gastro GI: Positive for diarrhea and nausea/dyspepsia; no abdominal pain, belching, bloating, change in bowel habits, change in stool character, coffee ground emesis, constipation, cramping, heartburn, feeling full early, excessive flatus, incontinent of stools, Vomiting blood/hematemesis, blood in stool, loose stools, Black,tarry stools, pain with swallowing, vomiting, other or difficulty swallowing Genitourinary-Female: No difficulty urinating, burning urination, painful urination, urinary incontinence, urinary frequency, urinary urgency, urinary hesitancy, urinary retention, blood in urine, Frequent nighttime urination/ nocturia, post void dribbling, suprapubic fullness, side pain, sexual problems, genital lesions, genital itching, hot flashes, abnormal periods, abnormal vaginal bleeding, absent period, painful periods, light periods, heavy periods, difficulty getting , painful intercourse, pelvic pain, vaginal dryness, vaginal odor, Vaginal Itching or other Musc Musculoskeletal: No abnormal walking, joint pain, back pain, deformity, joint swelling, limited range of motion, loss of height, muscle cramps, muscle weakness, decreased muscle mass, body aches, neck pain, numbness, radiating pain into limb, stiffness, tingling or other Skin Skin: Positive for rash; no acne, hair loss, change in hair, nail changes, boil, change in skin color, dry skin, redness, excessive hair growth, yellowing of the skin, lesions, itching, skin pain, skin ulcer, sores, skin swelling, wounds or other Breast Breast: No other Neuro Neurology: No frequent falls, weakness, visual disturbances, abnormal hearing, headache(s), abnormal walking, numbness or tingling Psych Psychiatric: No abnormal sleep pattern, Positive for change in appetite Endo Endocrine: No fatigue, other or excessive sweating Aller/Imm Allergy/Immunologic: Positive for wheezing; no lip swelling, tongue swelling, throat swelling or itchy eyes Assessment AND Plan 1. Type 2 diabetes mellitus with complication, with long-term current use of insulin E11.8; Z79.4 Plan Continue with use of kym sensors ongoing. Continue with 70 lantus, May use split dose as spike of BG near 7pm indicates lantus not covering 24 hours Use 15-20 for meal coverage with less sliding scale than before Exercise and diet 2. Hypothyroidism (acquired) E03.9 Plan Surgical consult due to difficulty swallowing and mutiple nodules. Plan Detail Other Orders Orders: Referrals: Other Medications New: flash glucose sensor kit (FreeStyle Kym As directed to monitor blood glucose [id number] Sensor kit) s Additional Comments 1. Please schedule follow up in 3 months. 2. Lab work one week before appointment. 3. Discussed importance of regular exercise and recommend starting or continuing a regular exercise program for good health. 4. The patient was encouraged to lose weight for good health 5. The importance of monitoring blood sugar regularly was reviewed. 6. The importance of monitoring the HBA1c level regularly was reviewed. 7. The importance of prper foot care and regularly checking feet to prevent sores and loss of limbs was reviewed. 8. The importance of keeping BP at or below 130/80 to prevent stroke, heart attacks, kidney failure, blindness was reviewed. Spent approximately 45 minutes with patient with over 50% of time spent in discussion and counseling regarding medication adjustment, symptoms and treatment of hypoglycemia, diet adherence, and checking BG before driving. Coding Level of Care Code Off vis,est,level 4 Diagnoses Type 2 diabetes mellitus with complication, with long-term current use of insulin E11.8; Z79.4 Diabetes mellitus intermediate manager insulin use: with long-term use Diabetes mellitus complication status: with unspecified complications Hypothyroidism (acquired) E03.9 Time Spent (min) 45 03/21/18 0737 <Electronically signed by Nguyen TIMMONS> Date Nguyen TIMMONS Cosigner Signature: Date (if applicable) CC: ENDOCRINOLOGY VISIT Observed: 03/16/2018 Status: F Source: [place] REPORT 7:01 PM [facility] REPOSITORY [facility] [address] [place] [address] OFFICE VISIT Date of Service: 01/31/18 MR#: [id number] Acct: [id number] Name: ANNE MARIE MANNING Rep #: [id number] : 1980 Provider: Nguyen Hammond NP Age/Sex: 37/F [place] [facility] Status: Signed HPI History of present illness Anne Marie Manning is a 37 year old female who presents for consult of diabetes type 2. and thyroid disorder. Referred by Dr. Lopez. Reports she is currently on lantus 70 units twice daily and meal insulin 15-45 units each meal as well as victoza 1.8 daily. She is also taking prednisone daily due to sarcoid. She reports theprednisone is causing BG to raise up to 300 range. She is using her sliding scale to correct. Pt denies difficulty with injections or self monitoring of BG. Denies any signs of infection or irritation at site of injections. Reports taking insulin as directed PMX is complex and includesallergies, anxiety\depression, arthritis, asthma, back problems, bone fractures, UTI's, blood clots, GI problems, headaches, hyperlipidemia, neuropathy, GERD, SIERRA, Restless leg syndrome,. At time of visit: -Pt denies symptoms of hypertensive emergency (CP,SOB,DICKERSON, or blurred vision) and hypotension(dizziness or lightheadedness) -Pt denies symptoms of hypoglycemia ( sweaty, confusion, anxiety, tremor, hunger, palpitations) and hyperglycemia ( polydipsia, polyuria) -Pt denies potential medication adverse effect. Hypoglycemia Aware of hypoglycemia: When awake Able to self treat low BG: Yes Frequent low Blood sugar: No Has supply of glucagon: Yes Checks BG 2-4 times daily. Diagnosed at age 16. Diet 3 meals Does not carb count her meals No I/C carb ratio Exercise No routine exercise Weight and fatigue symptoms: Denies snoring Cardiopulmonary symptoms: Denies chest pain at rest, dyspnea on exertion, lightheadedness or myalgias GI symptoms: Reports constipation and nausea/dyspepsia; denies diarrhea or vomiting Other symptoms: Denies blurry vision or change in vision Exam Const General: comfortable, well groomed Nutritional Appearance: well nourished Orientation: oriented x3 HENMT Head: normal to inspection Ears: hearing grossly normal bilaterally Mouth: oral mucosae normal, moist mucous membranes Eyes Sclera: sclerae normal Pupils: PERRL Neck Neck mass: No Thyroid: thyroid normal Resp Effort AND Inspection: normal respiratory effort, able to speak in complete sentences, symmetric chest movement Auscultation: Bilateral: Clear to Auscultation Cardio Rate: regular rate Rhythm: regular rhythm Heart Sounds: S1 normal, S2 normal, murmur GI Auscultation: normal bowel sounds Palpation: soft, no guarding Skin General: no rashes or lesions noted Diabetic Foot Pulses: L dorsalis pedis pulse: normal, R dorsalis pedis pulse: normal Monofilament test: Left foot: abnormal, Right foot: abnormal Neuro General: oriented x3 Extrem General: normal capillary refill Psych Appearance: well kempt Mental Status: mental status grossly normal Mood: congruent mood Affect: normal affect Speech and Movement: speech and movement normal Attitude: cooperative Thought Process: normal Thought Content: normal Judgment: judgment good Intake Vital Signs01/31/18 Height 5 ft 7 in 01/31/18 Weight: 284 lb 4 oz 01/31/18 Body Mass Index (BMI) 44.5 01/31/18 Blood Pressure 122/82 01/31/18 Blood Pressure Location Lt popliteal 01/31/18 Blood Pressure Position Sitting Intake Visit Reasons: thyroid and diabetes type 2 Solution Engineer Required: No Accompanied by: Self Is patient in pain?: No Allergies tramadol HCl [From [facility]] Adverse Reaction (Verified 01/31/18 10:27) Vomiting Medications Albuterol Inhaler [Ventolin Hfa] 1 - 2 puff INHALATION Q6H PRN PRN 07/31/14 [History Confirmed 01/31/18] Magnesium 400 mg PO BID 07/31/14 [History Confirmed 01/31/18] Budesonide/Formoterol 160/4.5 [Symbicort 160/4.5 Mcg Inhaler (SP)] 2 puff INHALATION BID PRN PRN 01/27/15 [History Confirmed 01/31/18] Tizanidine HCl 4 mg PO QHS 01/27/15 [History Confirmed 01/31/18] Oxycodone HCl/Acetaminophen [Percocet 5/325] 1 tab PO Q6H PRN PRN #12 tab 02/28/15 [Rx Confirmed 01/31/18] Atorvastatin Calcium [Lipitor] 40 mg PO QHS 07/19/16 [History Confirmed 01/31/18] DiphenhydrAMINE [Benadryl] 25 mg PO BID 07/19/16 [History Confirmed 01/31/18] ALPRAZolam [Xanax] 0.5 mg PO TID PRN PRN 02/11/17 [History Confirmed 01/31/18] citalopram 40 mg tablet 60 mg PO QDAY tab 01/31/18 [History Confirmed 01/31/18] doxepin 50 mg capsule 50 mg PO QHS 01/31/18 [History Confirmed 01/31/18] fluocinolone acetonide oil 0.01 % ear drops 2 drp OTIC BID ml 01/31/18 [History Confirmed 01/31/18] insulin aspart U-100 100 unit/mL subcutaneous pen See Label Instructions SC TID ml 01/31/18 [History Confirmed 01/31/18] insulin glargine (U-100) 100 unit/mL (3 mL) subcutaneous pen 70 unit SC BID ml 01/31/18 [History Confirmed 01/31/18] levothyroxine 25 mcg tablet 25 mcg PO QDAY 01/31/18 [History Confirmed 01/31/18] liraglutide 0.6 mg/0.1 mL (18 mg/3 mL) subcutaneous pen injector 1.8 mg SC QDAY ml 01/31/18 [History Confirmed 01/31/18] pantoprazole 40 mg tablet,delayed release 40 mg PO BID 01/31/18 [History Confirmed 01/31/18] pramipexole 1 mg tablet 1 mg PO BID tab 01/31/18 [History Confirmed 01/31/18] prednisone 20 mg tablet See Label Instructions PO QDAY 01/31/18 [History Confirmed 01/31/18] pregabalin 75 mg capsule 75 mg PO BID 01/31/18 [History Confirmed 01/31/18] promethazine 50 mg rectal suppository 50 mg RC QHS PRN 01/31/18 [History Confirmed 01/31/18] sterile saline rinse INTRANASAL 01/31/18 [History Confirmed 01/31/18] flash glucose sensor kit See Dose Instructions .ROUTE .MEDSUPPLY #1 ea 02/05/18 [Rx Confirmed 02/05/18] Is last menstrual period known: No Post menopausal: No Patient : No Nurse's Note: blood sugars : low :119 high : 250 PFSH Medical History Chronic ethmoidal sinusitis (Chronic) Chronic cough (Chronic) Depression (Chronic) Rosacea (Chronic) Anxiety (Chronic) Morbid obesity (Chronic) Atopic dermatitis (Chronic) Chronic mastoiditis (Chronic) Myalgia and myositis (Chronic) Peripheral edema (Chronic) SIERRA (obstructive sleep apnea) (Chronic) Restless legs syndrome (Chronic) Chronic back pain (Chronic) Acute DVT (deep venous thrombosis) (Resolved) Hyperlipidemia (Chronic) Sarcoidosis (Suspected) Asthma (Chronic) History of depression (Chronic) GERD (gastroesophageal reflux disease) (Chronic) DM type 2 (diabetes mellitus, type 2) (Chronic) Peripheral neuropathy (Chronic) Arthritis (Acute) Bone fracture (Acute) Recurrent UTI (Acute) Seasonal allergies (Acute) Surgical History history of sinusplasty (Resolved) History of tubal ligation (Resolved) History of total hysterectomy (Resolved) History of cholecystectomy (Resolved) lymph node removal (Acute) Family History Father Diabetes Asthma Brother Asthma Unknown Asthma Arthritis Diabetes Heart disease Hypertension Thyroid disorder Social History Smoking Status: Former smoker alcohol intake: never substance use type: does not use ROS Const Constitutional: Positive for fatigue, night sweats and change in appetite; no anorexia, body ache, chills, fever(s), frequent falls, decreased energy, malaise, weakness, weight change, sleep problems, abnormal sleep pattern, other, headache(s), snoring or excessive sweating Eyes Eyes: Positive for other (eye exam 11/24); no blurry vision, change in vision, double vision, discharge, dry eyes, bulging eyes, floaters, visual disturbances, eye pain, light sensitivity, spots in vision or tunnel vision ENT ENT: Positive for nasal congestion, sinus pressure, sinus pain, nasal discharge, post nasal drip, hoarseness and difficulty swallowing; no abnormal hearing, ear pain, ear discharge, ear pressure, hearing loss, tinnitus, dizziness/vertigo, balance problems, nosebleed/epistaxis, nasal obstruction, nose pain, headache(s), facial pain, dental pain, dry mouth, bad breath, lip swelling, mouth lesions, mouth pain, sore throat, tongue swelling, throat swelling, other or neck pain Resp Respiratory: Positive for cough; no change in phlegm color, chest congestion, excessive phlegm production, hemoptysis, pain on inspiration, shortness of breath, pain with cough, snoring, stridor, wheezing or other Cardio Cardiology: Positive for generalized swelling; no chest pain at rest, chest pain with exertion, leg pain with exertion, excessive sweating, shortness of breath, dyspnea on exertion, irregular heart rhythm, lightheadedness, orthopnea, radiating jaw, neck or arm pain, fast heart rate, slow heart rate, palpitations or other Gastro GI: Positive for abdominal pain, constipation, heartburn, difficulty swallowing and nausea/dyspepsia; no belching, bloating, change in bowel habits, change in stool character, coffee ground emesis, cramping, diarrhea, feeling full early, excessive flatus, incontinent of stools, Vomiting blood/hematemesis, blood in stool, loose stools, Black,tarry stools, pain with swallowing, vomiting or other Genitourinary-Female: No difficulty urinating, burning urination, painful urination, urinary incontinence, urinary frequency, urinary urgency, urinary hesitancy, urinary retention, blood in urine, Frequent nighttime urination/ nocturia, post void dribbling, suprapubic fullness, side pain, sexual problems, genital lesions, genital itching, hot flashes, abnormal periods, abnormal vaginal bleeding, absent period, painful periods, light periods, heavy periods, difficulty getting , painful intercourse, pelvic pain, vaginal dryness, vaginal odor, Vaginal Itching or other Musc Musculoskeletal: No abnormal walking, joint pain, back pain, deformity, joint swelling, limited range of motion, loss of height, muscle cramps, muscle weakness, decreased muscle mass, body aches, neck pain, numbness, radiating pain into limb, stiffness, tingling or other Skin Skin: Positive for nail changes; no acne, hair loss, change in hair, boil, change in skin color, dry skin, redness, excessive hair growth, yellowing of the skin, lesions, itching, rash, skin pain, skin ulcer, sores, skin swelling, wounds or other Breast Breast: No other Neuro Neurology: No frequent falls, weakness, visual disturbances, abnormal hearing, headache(s), abnormal walking, numbness or tingling Psych Psychiatric: No abnormal sleep pattern, Positive for change in appetite Endo Endocrine: Positive for fatigue; no other or excessive sweating Aller/Imm Allergy/Immunologic: No lip swelling, tongue swelling, throat swelling, wheezing or itchy eyes Assessment AND Plan Problems 1. DM type 2 (diabetes mellitus, type 2) E11.9 2. Hypothyroidism (acquired) E03.9 Plan Labs Thyroid ultrasoud Libres sensor. Patient Instructions Carb counting Intensive Bg monitoring Use of sliding scale 5/50 Orders Orders: Plan Detail Additional Comments 1. Please schedule follow up in 3 weeks 2. Lab work one week before appointment. 3. Discussed importance of regular exercise and recommend starting or continuing a regular exercise program for good health. 4. The patient was encouraged to lose weight for good health 5. The importance of monitoring blood sugar regularly was reviewed. 6. The importance of monitoring the HBA1c level regularly was reviewed. 7. The importance of prper foot care and regularly checking feet to prevent sores and loss of limbs was reviewed. 8. The importance of keeping BP at or below 130/80 to prevent stroke, heart attacks, kidney failure, blindness was reviewed. Spent approximately 60 minutes with patient with over 50% of time spent in discussion and counseling regarding medication adjustment, symptoms and treatment of hypoglycemia, diet adherence, and checking BG before driving. Patient Education Hyperglycemia (High Blood Sugar) Coding Level of Care Code Off vis,new,level 4 Diagnoses DM type 2 (diabetes mellitus, type 2) E11.9 Hypothyroidism (acquired) E03.9 Time Spent (min) 60 Depression Screen PHQ-2/9 PHQ-2 Over the last 2 weeks, how often have you been bothered by any of the following problems? 1. Little interest or pleasure in doing things: nearly every day 2. Feeling down, depressed, or hopeless: several days Total score: 4 If score is 2 or greater, continue 3. Trouble falling or staying asleep, or sleeping too much: nearly every day 4. Feeling tired or having little energy: nearly every day 5. Poor appetite or overeating: nearly every day 6. Feeling bad about yourself - or that you are a failure or have let yourself and your family down: nearly every day 7. Trouble concentrating on things, such as reading the newspaper or watching television: nearly every day 8. Moving or speaking so slowly that other people could have noticed? - Or the opposite - being so fidgety or restless that you have been moving around a lot more than usual: nearly every day 9. Thoughts that you would be better off or of hurting yourself in some way: not at all Total score: 22 If you checked off any problems, how difficult have these problems made it for you to do your work, take care of things at home, or get along with other people?: extremely difficult Source: Developed by Drs. Bipin Kat, Eli Mcarthur, Tunde Hernandez and colleagues, with an educational dyllan from [employer]. Scoring: Total Score Depression Severity Action 1-4 Minimal depression No action needed 5-9 Mild depression Repeat PHQ-9 at follow up 10-14 Moderate depression Make tx plan,consider counseling, fup, prescription 03/16/18 1991 <Electronically signed by Nguyen TIMMONS> Date Nguyen TIMMONS Cosigner Signature: Date (if applicable) CC: PROGRESS Observed: 03/06/2018 Status: COMPLETED Source: [place] 3:15 PM [facility] REPOSITORY O ID: [id number] Author: Betsy Nguyen Service: (none) Author Type: Physician Type: Progress Notes Filed: 03/06/2018 3:23 PM Note Text: History of Present Illness Ms. ANNE MARIE MANNING is a 37 year old female returning for follow- up of bilateral chronic otitis externa. Since last seen, got drops, using bilateral, no improvement + achey pain + drainage Hearing may even be worse ALLERGIES Allergen Reactions - Ultram [Tramadol Hc* GI Upset Current Outpatient Prescriptions on File Prior to Visit: budesonide (PULMICORT) 0.5 mg/2 mL nebulizer solution Use 2 mL via nebulizer twice daily. Fluocinolone Acetonide Oil (DERMOTIC OIL) 0.01 % drop Use 1-2 Drops in both ears once daily. liraglutide (VICTOZA 2-CLAU) 0.6 mg/0.1 mL (18 mg/3 mL) pnij Inject 1.8 mg subcutaneously once daily. sodium chloride (STERILE SALINE) 0.9 % IRRIGATION Please use to rinse area twice daily. Please dispense seven 1 liter bottles levothyroxine (SYNTHROID) 25 mcg tablet Take 1 tablet by mouth once daily. citalopram (CELEXA) 40 mg tablet Take 60 mg by mouth once daily. ALPRAZOLAM (XANAX ORAL) Take 1 mg by mouth three times daily as needed. tiZANidine HCl 4 mg capsule Take 4 mg by mouth daily at bedtime. atorvastatin (LIPITOR) 40 mg tablet Take 10 mg by mouth once daily. INSULIN ASPART (NOVOLOG SUBCUTANEOUS) Inject subcutaneously. Use with Sliding Scale INSULIN GLARGINE,HUM.REC.ANLOG (LANTUS SUBCUTANEOUS) Inject 60 Units subcutaneously twice daily. FREESTYLE LITE METER monitoring kit EASY TOUCH TWIST LANCETS 33 gauge misc LYRICA 50 mg capsule Take 50 mg by mouth three times daily. blood sugar diagnostic (BLOOD GLUCOSE TEST) test strip Test blood sugar(s) 3 times daily. Dx: 250.02. Insulin: No Lancets lancets Test blood sugar(s) three times daily. Dx: 250.02. Insulin: Yes pantoprazole DR (PROTONIX) 40 mg tablet Take 1 tablet by mouth twice daily. Take on empty stomach, 1/2 hr before meal. Magnesium Hydroxide 400 mg (170 mg) chew Take 400 mg by mouth twice daily. pramipexole (MIRAPEX) 1 mg tablet Take 1 tablet by mouth daily at bedtime. oxyCODONE-acetaminophen (PERCOCET) 5-325 mg tablet Take 1 tablet by mouth every 8 hours as needed. Lancing Device with Lancets Kit Lancet Device Dx: 250.02 predniSONE (DELTASONE) 10 mg tablet Take by mouth four (4) tabs x3 days; then three (3) tabs x3days; then two (2) tabs x3 days; then one (1) tab a day x3 days (Patient not taking: Reported on 03/06/2018 ) fluticasone (FLONASE) 50 mcg/actuation nasal spray Use 2 Sprays in each nostril once daily. (Patient not taking: Reported on 03/06/2018 ) doxepin capsule 50 mg Take 50 mg by mouth daily at bedtime. promethazine (PHENERGAN) 50 mg tab(s) Take 50 mg by mouth as needed. No current facility-administered medications on file prior to visit. Objective: Last menstrual period 10/11/2010. Appearance: normal Communication: normal Head/Face: no lesions Facial nerve 1/6 bilateral Ears: AD improvement of the circumferential mucosalization. Now is just floor of external auditory canal and tympanic membrane improvement of the circumferential mucosalization. Now is just floor of external auditory canal and tympanic membrane Neuro/Psych.: Alert and Oriented x 3; no nystagmus Data Review: Audio: bilateral mixed hearing loss, air-bone gap greater on left Assessment: (H60.313) Chronic diffuse otitis externa of both ears (primary encounter diagnosis) (H92.13) Otorrhea of both ears Plan: 1. Continue drops 2. Follow-up 2 month 3. Consider bone-anchored auditory implant; would need to see financial before sensory device selection Orders: No orders found for this visit on 03/06/18. Procedures: Betsy Nguyen MD, FACS Otology/Neurotology/Skull Base Surgery Windlasser, Cochlear Implant Program Head [facility] [place] [facility] CNOV Observed: 03/06/2018 Status: COMPLETED Source: [place] 3:00 PM [facility] REPOSITORY Office Visit (OTOLMN) NIGELANNE MARIE ANDINO ([id number]) 1980 F Date Time Provider Department 03/06/18 3:00 PM BETSY NGUYEN OTCHANDLER During your visit today, we recorded the following information about you: Adriana Timo Iglesias 03/06/2018 2:45 PM Signed Tobacco Use: 1 packs/day, for 10 years. Quit 01/25/2013. Types: Cigarettes Was smoking cessation packet given? N/A - Patient is a non- smoker or quit >1 year ago. Was a referral initiated?N/A Patient is a non-smoker Betsy Nguyen MD 03/06/2018 3:23 PM Signed History of Present Illness Ms. ANNE MARIE Garcia NIGEL is a 37 year old female returning for follow- up of bilateral chronic otitis externa. Since last seen, got drops, using bilateral, no improvement + achey pain + drainage Hearing may even be worse ALLERGIES Allergen Reactions - Ultram [Tramadol Hc* GI Upset Current Outpatient Prescriptions on File Prior to Visit: budesonide (PULMICORT) 0.5 mg/2 mL nebulizer solution Use 2 mL via nebulizer twice daily. Fluocinolone Acetonide Oil (DERMOTIC OIL) 0.01 % drop Use 1-2 Drops in both ears once daily. liraglutide (VICTOZA 2-CLAU) 0.6 mg/0.1 mL (18 mg/3 mL) pnij Inject 1.8 mg subcutaneously once daily. sodium chloride (STERILE SALINE) 0.9 % IRRIGATION Please use to rinse area twice daily. Please dispense seven 1 liter bottles levothyroxine (SYNTHROID) 25 mcg tablet Take 1 tablet by mouth once daily. citalopram (CELEXA) 40 mg tablet Take 60 mg by mouth once daily. ALPRAZOLAM (XANAX ORAL) Take 1 mg by mouth three times daily as needed. tiZANidine HCl 4 mg capsule Take 4 mg by mouth daily at bedtime. atorvastatin (LIPITOR) 40 mg tablet Take 10 mg by mouth once daily. INSULIN ASPART (NOVOLOG SUBCUTANEOUS) Inject subcutaneously. Use with Sliding Scale INSULIN GLARGINE,HUM.REC.ANLOG (LANTUS SUBCUTANEOUS) Inject 60 Units subcutaneously twice daily. FREESTYLE LITE METER monitoring kit EASY TOUCH TWIST LANCETS 33 gauge misc LYRICA 50 mg capsule Take 50 mg by mouth three times daily. blood sugar diagnostic (BLOOD GLUCOSE TEST) test strip Test blood sugar(s) 3 times daily. Dx: 250.02. Insulin: No Lancets lancets Test blood sugar(s) three times daily. Dx: 250.02. Insulin: Yes pantoprazole DR (PROTONIX) 40 mg tablet Take 1 tablet by mouth twice daily. Take on empty stomach, 1/2 hr before meal. Magnesium Hydroxide 400 mg (170 mg) chew Take 400 mg by mouth twice daily. pramipexole (MIRAPEX) 1 mg tablet Take 1 tablet by mouth daily at bedtime. oxyCODONE-acetaminophen (PERCOCET) 5-325 mg tablet Take 1 tablet by mouth every 8 hours as needed. Lancing Device with Lancets Kit Lancet Device Dx: 250.02 predniSONE (DELTASONE) 10 mg tablet Take by mouth four (4) tabs x3 days; then three (3) tabs x3days; then two (2) tabs x3 days; then one (1) tab a day x3 days (Patient not taking: Reported on 03/06/2018 ) fluticasone (FLONASE) 50 mcg/actuation nasal spray Use 2 Sprays in each nostril once daily. (Patient not taking: Reported on 03/06/2018 ) doxepin capsule 50 mg Take 50 mg by mouth daily at bedtime. promethazine (PHENERGAN) 50 mg tab(s) Take 50 mg by mouth as needed. No current facility-administered medications on file prior to visit. Objective: Last menstrual period 10/11/2010. Appearance: normal Communication: normal Head/Face: no lesions Facial nerve 1/6 bilateral Ears: AD improvement of the circumferential mucosalization. Now is just floor of external auditory canal and tympanic membrane improvement of the circumferential mucosalization. Now is just floor of external auditory canal and tympanic membrane Neuro/Psych.: Alert and Oriented x 3; no nystagmus Data Review: Audio: bilateral mixed hearing loss, air-bone gap greater on left Assessment: (H60.313) Chronic diffuse otitis externa of both ears (primary encounter diagnosis) (H92.13) Otorrhea of both ears Plan: 1. Continue drops 2. Follow-up 2 month 3. Consider bone-anchored auditory implant; would need to see financial before sensory device selection Orders: No orders found for this visit on 03/06/18. Procedures: Betsy Nguyen MD, FACS Otology/Neurotology/Skull Base Surgery Windlasser, Cochlear Implant Program [place] [facility] [place] [facility] Referring Provider: BORIS MUSTAFA [[id number]] Allergies As of Date: 03/06/2018 Noted Allergy Reaction ULTRAM (TRAMADOL HCL) 11/20/2006 8 - GI Upset Date Reviewed: 03/06/2018 Reviewed by: Adriana Hinton Ma - Fully Assessed Reason for Visit: Follow Up [171] Primary Visit Diagnosis:Chronic diffuse otitis externa of both ears [H60.313] Other Visit Diagnosis:Otorrhea of both ears [H92.13] Prescriptions as of 03/06/2018 Sig: BUDESONIDE 0.5 MG/2 ML SUSPEN* Use 2 mL via nebulizer twice * FLUOCINOLONE ACETONIDE OIL 0.* Use 1-2 Drops in both ears on* LIRAGLUTIDE 0.6 MG/0.1 ML (18* Inject 1.8 mg subcutaneously * SODIUM CHLORIDE 0.9 % IRRIGAT* Please use to rinse area twic* LEVOTHYROXINE 25 MCG TABLET Take 1 tablet by mouth once d* CITALOPRAM 40 MG TABLET Take 60 mg by mouth once te* XANAX ORAL Take 1 mg by mouth three time* TIZANIDINE 4 MG CAPSULE Take 4 mg by mouth daily at b* ATORVASTATIN 40 MG TABLET Take 10 mg by mouth once te* NOVOLOG SUBCUTANEOUS Inject subcutaneously. Use wi* LANTUS SUBCUTANEOUS Inject 60 Units subcutaneousl* FREESTYLE LITE METER KIT EASY TOUCH TWIST LANCETS 33 G* LYRICA 50 MG CAPSULE Take 50 mg by mouth three kenrick* BLOOD SUGAR DIAGNOSTIC STRIPS Test blood sugar(s) 3 times d* LANCETS Test blood sugar(s) three kenrick* PANTOPRAZOLE 40 MG TABLET,DEL* Take 1 tablet by mouth twice * MAGNESIUM HYDROXIDE 400 MG (1* Take 400 mg by mouth twice da* PRAMIPEXOLE 1 MG TABLET Take 1 tablet by mouth daily * OXYCODONE-ACETAMINOPHEN 5 MG-* Take 1 tablet by mouth every * LANCING DEVICE WITH LANCETS K* Lancet Device Dx: 250.02 PREDNISONE 10 MG TABLET Take by mouth four (4) tabs x* Patient not taking: Reported on 03/06/2018 FLUTICASONE 50 MCG/ACTUATION * Use 2 Sprays in each nostril * Patient not taking: Reported on 03/06/2018 DOXEPIN 50 MG CAPSULE Take 50 mg by mouth daily at * PROMETHAZINE 50 MG TABLET Take 50 mg by mouth as needed. Problem List As Of Date 03/06/2018 Noted Resolved Supervision of other high-risk [O09.8*INVALID FOR*11/18/2012 Supervision of other normal [Z34.80] INVALID FOR*11/18/2012 Sebaceous cyst [L72.3] INVALID FOR*11/18/2012 Type II or unspecified type diabetes mellitus w*INVALID FOR*02/06/2013 Tobacco use disorder [F17.200] INVALID FOR* H/O thyroid nodule [Z86.39] INVALID FOR* More... GERD (gastroesophageal reflux disease) [K21.9] INVALID FOR* Asthma [J45.909] INVALID FOR* Depressive disorder, not elsewhere classified [*INVALID FOR* Antiphospholipid antibody syndrome [D68.61] INVALID FOR* Genital warts [A63.0] INVALID FOR* Other and unspecified hyperlipidemia [E78.5] INVALID FOR* Neuropathy in diabetes [E11.40] INVALID FOR* More... Sleep apnea [G47.30] INVALID FOR* Restless leg syndrome [G25.81] INVALID FOR* DM type 2 with diabetic peripheral neuropathy [*INVALID FOR* Lateral epicondylitis of right elbow [M77.11] INVALID FOR* Degeneration of lumbar or lumbosacral intervert*INVALID FOR* Other pain disorders related to psychological f*INVALID FOR* GERD with esophagitis [K21.0] INVALID FOR* Intractable vomiting with nausea [R11.2] INVALID FOR* History of thyroid cyst [Z86.39] INVALID FOR* Mild intermittent asthma without complication [*INVALID FOR* Chronic sinusitis [J32.9] INVALID FOR* More... Chronic diffuse otitis externa of both ears [H6*INVALID FOR* Acquired stenosis of external ear canal seconda*INVALID FOR* Visit Notes: >> Adriana Hinton Ma Wed Mar 06, 2018 2:44 PM Status: Signed Tobacco Use: 1 packs/day, for 10 years. Quit 01/25/2013. Types: Cigarettes Was smoking cessation packet given? N/A - Patient is a non- smoker or quit >1 year ago. Was a referral initiated?N/A Patient is a non-smoker Disposition: Return in about 2 months (around 05/06/2018). Follow-up and Disposition History Recorded Encounter Status:Closed by BETSY NGUYEN MD on 03/06/18 PROGRESS Observed: 03/06/2018 Status: COMPLETED Source: CHUNKY 2:08 PM [facility] REPOSITORY O ID: [id number] Author: Rae Phelan Service: (none) Author Type: (none) Type: Progress Notes Filed: 03/07/2018 9:46 AM Note Text: AUDIOLOGIC EVALUATION REPORT Referred by: Betsy Nguyen MD [id number] [facility] [address] Referred for: Evaluation of suspected change in hearing, tinnitus, or balance. Patient's major complaints: Anne Marie Christine was seen for initial audiologic evaluation with history of chronic otitis externa, stenosis of the external auditory canal, chronic otorrhea, and PE tubes with left tube imbedded in scarring over the tympanic membrane. Today, she complains of hearing loss, pulsatile tinnitus in both ears, dizziness, and headaches. She denied otalgia, aural fullness, noise exposure, or ototoxicity. This patient was seen for an initial audiologic evaluation. See SmartForm Audiogram for additional reported history and symptoms. AUDIOMETRIC RESULTS Following is a brief interpretation of the obtained findings from the audiologic evaluation. Refer to the Auditory Test Record for complete audiometric results. The patient was counseled about the test findings and appropriate audiologic recommendations were made. SUMMARY: Audiogram can be viewed under Forms/Audiology/SmartForm. RIGHT EAR Hearing Sensitivity: Within normal limits 250-500 Hz, mild sloping to moderately sever loss 8120-3647 Hz. Mixed hearing loss. Word Recognition Score: Excellent (90-100%). WRS is consistent with hearing sensitivity. Tympanometry: Could not test due to inability to obtain seal. LEFT EAR Hearing Sensitivity: Mild sloping to moderately severe mixed hearing loss. Word Recognition Score: Excellent (90-100%). WRS is consistent with hearing sensitivity. Tympanometry: Could not test due to inability to obtain seal. INTERPRETATION OF HEARING STATUS Right ear: Mixed (conductive and sensorineural) hearing loss Left ear: Mixed (conductive and sensorineural) hearing loss MANAGEMENT PLAN: * Continue medical follow-up with Betsy Nguyen MD. * Re-evaluation as medically indicated. Jessica Costa, [facility]-A Managing Cognitive Engineer FERNANDEZ Abbrev- iation Definition Degree of hearing sensitivity dB range WNL within normal limits WNL 0 - 20 SNHL sensorineural hearing loss Mild 20-40 CHL conductive hearing loss Moderate 40-55 MHL mixed hearing loss Moderately-Severe 55-70 WRS word recognition score Severe 70-90 ME middle ear Profound 90 + TM tympanic membrane CNOV Observed: 03/06/2018 Status: COMPLETED Source: CHUNKY 2:00 PM [facility] REPOSITORY Office Visit (CDISMN) ANNE MARIE MANNING ([id number]) 1980 F Date Time Provider Department 03/06/18 2:00 PM RAE PHELAN (BETH) CDISARA During your visit today, we recorded the following information about you: Rae Phelan 03/07/2018 9:46 AM Signed AUDIOLOGIC EVALUATION REPORT Referred by: Betsy Nguyen MD [address] [facility] [address] Referred for: Evaluation of suspected change in hearing, tinnitus, or balance. Patient's major complaints: Anne Marie Christine was seen for initial audiologic evaluation with history of chronic otitis externa, stenosis of the external auditory canal, chronic otorrhea, and PE tubes with left tube imbedded in scarring over the tympanic membrane. Today, she complains of hearing loss, pulsatile tinnitus in both ears, dizziness, and headaches. She denied otalgia, aural fullness, noise exposure, or ototoxicity. This patient was seen for an initial audiologic evaluation. See SmartForm Audiogram for additional reported history and symptoms. AUDIOMETRIC RESULTS Following is a brief interpretation of the obtained findings from the audiologic evaluation. Refer to the Auditory Test Record for complete audiometric results. The patient was counseled about the test findings and appropriate audiologic recommendations were made. SUMMARY: Audiogram can be viewed under Forms/Audiology/SmartForm. RIGHT EAR Hearing Sensitivity: Within normal limits 250-500 Hz, mild sloping to moderately sever loss 1016-4381 Hz. Mixed hearing loss. Word Recognition Score: Excellent (90-100%). WRS is consistent with hearing sensitivity. Tympanometry: Could not test due to inability to obtain seal. LEFT EAR Hearing Sensitivity: Mild sloping to moderately severe mixed hearing loss. Word Recognition Score: Excellent (90-100%). WRS is consistent with hearing sensitivity. Tympanometry: Could not test due to inability to obtain seal. INTERPRETATION OF HEARING STATUS Right ear: Mixed (conductive and sensorineural) hearing loss Left ear: Mixed (conductive and sensorineural) hearing loss MANAGEMENT PLAN: * Continue medical follow-up with Betsy Nguyen MD. * Re-evaluation as medically indicated. Jessica Costa, [facility]-A Managing Cognitive Engineer FERNANDEZ Abbrev- iation Definition Degree of hearing sensitivity dB range WNL within normal limits WNL 0 - 20 SNHL sensorineural hearing loss Mild 20-40 CHL conductive hearing loss Moderate 40-55 MHL mixed hearing loss Moderately-Severe 55-70 WRS word recognition score Severe 70-90 ME middle ear Profound 90 + TM tympanic membrane Referring Provider: BETYS NGUYEN [[id number]] Allergies As of Date: 03/06/2018 Noted Allergy Reaction ULTRAM (TRAMADOL HCL) 11/20/2006 8 - GI Upset Date Reviewed: 03/06/2018 Reviewed by: Adriana Hinton Ma - Fully Assessed Primary Visit Diagnosis:Chronic diffuse otitis externa of both ears [H60.313] Other Visit Diagnoses: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, 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, bilateral [H90.6] Dizziness and giddiness [R42] Prescriptions as of 03/06/2018 Sig: BUDESONIDE 0.5 MG/2 ML SUSPEN* Use 2 mL via nebulizer twice * PREDNISONE 10 MG TABLET Take by mouth four (4) tabs x* Patient not taking: Reported on 03/06/2018 FLUOCINOLONE ACETONIDE OIL 0.* Use 1-2 Drops in both ears on* FLUTICASONE 50 MCG/ACTUATION * Use 2 Sprays in each nostril * Patient not taking: Reported on 03/06/2018 LIRAGLUTIDE 0.6 MG/0.1 ML (18* Inject 1.8 mg subcutaneously * SODIUM CHLORIDE 0.9 % IRRIGAT* Please use to rinse area twic* LEVOTHYROXINE 25 MCG TABLET Take 1 tablet by mouth once d* CITALOPRAM 40 MG TABLET Take 60 mg by mouth once te* DOXEPIN 50 MG CAPSULE Take 50 mg by mouth daily at * XANAX ORAL Take 1 mg by mouth three time* TIZANIDINE 4 MG CAPSULE Take 4 mg by mouth daily at b* ATORVASTATIN 40 MG TABLET Take 10 mg by mouth once te* NOVOLOG SUBCUTANEOUS Inject subcutaneously. Use wi* LANTUS SUBCUTANEOUS Inject 60 Units subcutaneousl* PROMETHAZINE 50 MG TABLET Take 50 mg by mouth as needed. FREESTYLE LITE METER KIT EASY TOUCH TWIST LANCETS 33 G* LYRICA 50 MG CAPSULE Take 50 mg by mouth three kenrick* BLOOD SUGAR DIAGNOSTIC STRIPS Test blood sugar(s) 3 times d* LANCETS Test blood sugar(s) three kenrick* PANTOPRAZOLE 40 MG TABLET,DEL* Take 1 tablet by mouth twice * MAGNESIUM HYDROXIDE 400 MG (1* Take 400 mg by mouth twice da* PRAMIPEXOLE 1 MG TABLET Take 1 tablet by mouth daily * OXYCODONE-ACETAMINOPHEN 5 MG-* Take 1 tablet by mouth every * LANCING DEVICE WITH LANCETS K* Lancet Device Dx: 250.02 Problem List As Of Date 03/06/2018 Noted Resolved Supervision of other high-risk [O09.8*INVALID FOR*11/18/2012 Supervision of other normal [Z34.80] INVALID FOR*11/18/2012 Sebaceous cyst [L72.3] INVALID FOR*11/18/2012 Type II or unspecified type diabetes mellitus w*INVALID FOR*02/06/2013 Tobacco use disorder [F17.200] INVALID FOR* H/O thyroid nodule [Z86.39] INVALID FOR* More... GERD (gastroesophageal reflux disease) [K21.9] INVALID FOR* Asthma [J45.909] INVALID FOR* Depressive disorder, not elsewhere classified [*INVALID FOR* Antiphospholipid antibody syndrome [D68.61] INVALID FOR* Genital warts [A63.0] INVALID FOR* Other and unspecified hyperlipidemia [E78.5] INVALID FOR* Neuropathy in diabetes [E11.40] INVALID FOR* More... Sleep apnea [G47.30] INVALID FOR* Restless leg syndrome [G25.81] INVALID FOR* DM type 2 with diabetic peripheral neuropathy [*INVALID FOR* Lateral epicondylitis of right elbow [M77.11] INVALID FOR* Degeneration of lumbar or lumbosacral intervert*INVALID FOR* Other pain disorders related to psychological f*INVALID FOR* GERD with esophagitis [K21.0] INVALID FOR* Intractable vomiting with nausea [R11.2] INVALID FOR* History of thyroid cyst [Z86.39] INVALID FOR* Mild intermittent asthma without complication [*INVALID FOR* Chronic sinusitis [J32.9] INVALID FOR* More... Chronic diffuse otitis externa of both ears [H6*INVALID FOR* Acquired stenosis of external ear canal seconda*INVALID FOR* Classic SmartForms filed during this visit: Audiometry Encounter Status:Closed by RAE PHELAN on 03/07/18 THYROID Observed: 02/07/2018 Status: F Source: DIANA 10:36 AM [facility] REPOSITORY [facility] Imaging Services [address] [place] [address] Thyroid MR#: [id number] Acct: [id number] Name: ANNE MARIE MANNING Rep #: [id number] : 1980 F 37 From: Santhosh Wilkins MD PCP: Mary Lopez DO Status: REG CLI Study: Thyroid Date of Exam: 02/07/18 Exam# [id number] Ordering Dr: Nguyen Hammond MARINE FISHER[employer] TECHNICIAN-C STUDY: THYROID ULTRASOUND REASON FOR EXAM: Female, 37 years old. Difficulty swallowing. TECHNIQUE: Ultrasound evaluation of the thyroid was performed with real-time and static wolfe-scale imaging. COMPARISON: Comparison is made with prior CT scan dated January 24, 2013. FINDINGS: RIGHT LOBE: The right lobe of the thyroid gland measures 4.5 cm x 1.7 cm x 1.8 cm. There is a homogeneous echotexture. There is a 1.2 cm x 0.9 cm x 0.8 cm solid heterogeneous echotexture nodule in the mid pole. Adjacent to this, there is a hypoechoic solid nodule measuring 4 mm x 3 mm by 3 mm. LEFT LOBE: The left lobe of the thyroid gland measures 4.7 cm x 1.8 cm x 1.5 cm. There is a homogeneous echotexture. There is a 7 mm x 7 mm x 6 mm well-defined nodule in the upper pole of the mixed echogenicity. A similar-appearing nodule measuring 5 mm x 4 mm x 3 mm is seen in the mid upper aspect of the lobe as well. ISTHMUS: The isthmus measures 5.0 mm. The regional lymph nodes are normal. US/Thyroid IMPRESSION: Bilateral thyroid nodules. The largest measures 1.2 cm x 0.9 cm x 0.8 cm of mixed echogenicity in the midportion of the right lobe. Electronically Signed: Santhosh Wilkins MD at 13:23 EDT Tel [phone], Service support , CC: Nguyen Hammond MARINE FISHERIES TECHNICIAN; Mary Lopez DO Deck Worker: Signed CBC-COMPLETE BLOOD CNT Collected: 01/31/2018 Status: F Source: DIANA NO DIFF 12:29 PM [facility] REPOSITORY TYPE CODE TESTS RESULT OUT OF RANGE REFERENCE UNITS LAB L100.1000 4.4-11.0 K/mm3 High WBC 15.5 LAB L100.1200 4.2-5.4 M/mm3 Normal RBC 4.33 LAB L100.1300 12.0-15.0 g/dl Low HGB 11.9 LAB L100.1400 37-47 % Normal HCT 37.3 LAB L100.1500 81-99 fL Normal MCV 86.1 LAB L100.1600 27.0-32.0 pg Normal MCH 27.5 LAB L100.1700 32-36 g/gl Low MCHC 31.9 LAB L100.1810 11.6-14.6 % High RDW CV 15.5 LAB L100.1820 35.1-43.9 fl High RDW SD 48.9 LAB L100.1900 150-450 K/mm3 Normal PLT 336 LAB L100.2000 6.2-12.0 fl Normal MPV 9.9 Performed By: #### L100.0500 #### [facility] [address] [place], [place], [address] COMPREHENSIVE METABOLIC Collected: 01/31/2018 Status: F Source: DIANA PROFIL 12:29 PM [facility] REPOSITORY TYPE CODE TESTS RESULT OUT OF RANGE REFERENCE UNITS LAB L501.0100 74-106 mg/dL Normal GLU 104 Result Comment: Fasting Glucose result from 100 to 125 mg/dL suggests IMPAIRED HOMEOSTASIS per A.D.A. criteria. Please note revised GLUCOSE reference range effective 2017. LAB L501.1000 7-18 mg/dL Normal BUN 13 LAB L501.1100 0.55-1.02 mg/dL Normal CREAT,SERUM 0.81 Result Comment: The validity of the calculated GFR AND GFRAA in patients over 70 years has not been determined. Clinical correlation is essential. LAB L501.1110 >60 mL/min Normal EST GFR 85 Result Comment: Non- GFR Calc LAB L501.1115 >60 mL/min Normal EST GFR - AA 103 Result Comment: GFR Calc LAB L501.1300 10-20 RATIO Normal BUN/CRE 16.1 LAB L501.1500 6.4-8.2 g/dL T Normal PROT 7.9 LAB L501.1800 3.2-5.0 g/dL Normal ALB 3.4 LAB L501.1950 2.2-4.2 g/dL High GLOB 4.5 LAB L501.2000 0.9-2.4 RATIO Low A/G 0.8 LAB L501.2200 8.5-10.1 mg/dL CA Normal 8.8 LAB L501.4100 15-37 U/L Normal AST 17 LAB L501.4305 45-117 U/L Normal ALK P 97 LAB L501.4405 13-56 U/L Normal ALT 25 LAB L501.4600 0.20-1.00 mg/dL T Normal BILI 0.30 LAB L501.5300 136-145 mmol/L NA Normal 137 LAB L501.5600 3.5-5.1 mmol/L K Normal 4.0 LAB L501.5900 98-107 mmol/L CL Normal 105 LAB L501.6100 21.0-32.0 mmol/L Normal CO2 25.0 LAB L501.6200 5-15 Normal GAP 7 Performed By: #### L500.4050, L501.12466, L501.9520, L506.0400 #### [facility] [address] [place], [place], [address] FREE T3 Collected: 01/31/2018 Status: F Source: [place] 12:29 PM [facility] REPOSITORY TYPE CODE TESTS RESULT OUT OF RANGE REFERENCE UNITS LAB L501.36091 2.18-3.98 pg/mL Normal FREE T3 2.4 Performed By: #### L500.4050, L501.87741, L501.9520, L506.0400 #### [facility] [address] [place], [place], [address] THYROID STIM HORMONE Collected: 01/31/2018 Status: F Source: [place] (TSH) 12:29 PM [facility] REPOSITORY TYPE CODE TESTS RESULT OUT OF RANGE REFERENCE UNITS LAB L501.9520 0.358-3.74 uIU/mL Low TSH 0.32 Performed By: #### L500.4050, L501.84110, L501.9520, L506.0400 #### [facility] [address] [place], [address] T4 FREE DIRECT Collected: 01/31/2018 Status: F Source: [place] 12:29 PM [facility] REPOSITORY TYPE CODE TESTS RESULT OUT OF REFERENCE UNITS RANGE LAB L506.0400 0.76-1.46 ng/dL High T4 FREE 1.52 DIRECT Performed By: #### L500.4050, L501.99164, L501.9520, L506.0400 #### [facility] [address] [place], [address] Observed: 01/30/2018 Status: F Source: [place] SINUS CULT AND 3:03 PM [facility] SMEAR REPOSITORY Sp. Request/Comment: - Swab Smear Result - No organisms seen Rare Polymorphonuclear leukocytes Rare Mononuclear cells Few Epithelial cells Culture Result - Rare Staphylococcus aureus --> ABNORMAL ALERT ORGANISM: Staphylococcus aureus METHOD: Minimum inhibitory concentration(Vitek) Antibiotic Interp SOREN Status Erythromycin RESISTANT >=8 F Clindamycin SUSCEPTIBLE 0.25 F Testing for inducible clindamycin resistance was performed. Tetracycline SUSCEPTIBLE <=1 F Vancomycin SUSCEPTIBLE 1 F Oxacillin SUSCEPTIBLE 0.5 F Oxacillin susceptible staphylococci are susceptible to other penicillinase stable penicillins, beta lactam/beta lactamase inhibitor combinations, anti staphyloccal cephems, and carbapenems. Trimeth sulfameth SUSCEPTIBLE <=10 F Gentamicin SUSCEPTIBLE <=0.5 F Rifampin SUSCEPTIBLE <=0.5 F Rifampin should not be used alone for antimicrobial therapy. Doxycycline SUSCEPTIBLE <=0.5 F Performed By: #### SINUSC #### [facility] [address] [place], [place] [address] CNOV Observed: 01/30/2018 Status: COMPLETED Source: [place] 2:30 PM [facility] REPOSITORY Office Visit (OTOLMN) ANNE MARIE MANNING ([id number]) 1980 F Date Time Provider Department 01/30/18 2:30 PM CATARINO WILKERSON During your visit today, we recorded the following information about you: Catarino Wilkerson MD 02/02/2018 10:44 PM Signed SECTION OF RHINOLOGY, SINUS AND SKULL BASE SURGERY [facility] [place] NOTE CC: sinus issues and otorrhea ASSESSMENT and PLAN: Anne Marie Manning is a 36 year old female With CRS S/p FESS. 1) Nasal Endoscopy today reveals generalized edema and mucopurulence bilaterally 2) Switch to budesonide rinses BID 3) Antibiotic (extend doxycycline additional 2 weeks) and prednisone burst/taper today as well - will follow up results of cultures 4) Follow up 1-2 months HPI: Anne Marie Manning is a 36 year old female with a history of crs, DM2, depression, asthma and sarcoidosis. S/p FESS on . Was last seen on 11/21/17. She notes a lack of smell and taste for the past 2 months. She is rinsing her nose twice daily and using Flonase twice daily. She has had some yellowish drainage. She thinks she had some initial benefit from the surgery, but now this is back to where she was prior. She was prescribed steroids by her PCP 1 week ago for cough (dexamethasone x 7 days - unclear as to the dosage). She just finished a course of doxycycline that was prescribed by Dr. Nguyen (7 day course). Prior to this she was on bactrim about a month ago. PHYSICAL EXAM: Constitutional: ? General appearance: well developed, well nourished, without obvious deformities ? Communication: the patient speaks with a normal voice with intermittent hoarseness Head and Face: ? Overall appearance: plethoric face and neck, no obvious scars, lesions or masses ?? Facial strength: normal and equal bilaterally . No tenderness to palpation Ears, Nose, Mouth, Throat: ? External ears and nose: normal in appearance, without scars, lesions, or masses ? Ears: Bilateral T-tubes in place, some visible fluid behind TMs, TMs appear thickened ? Nasal exam: the mucosa is pink, the septum is midline, and the visible turbinates are normal on anterior rhinoscopy ? Oral cavity and oropharynx: The lips, the oral mucosa, hard and soft palates, tongue, tonsil area, and posterior pharyngeal mucosa are without lesions; there are two small apthous ulcerations of the buccal mucosa ? Neck: the neck appears symmetric without scars, and on palpation is without masses or lymphadenopathy however is plethoric Respiratory: . Normal respirations on inspection Neurological . Normal mental status . Normal orientation . Cranial Nerves 3-12 intact PROCEDURE NOTE: Procedure: Nasal endoscopy Indication: sinusitis Findings: After topical decongestion with a lidocaine/phenylephrine mix, rigid endoscopy was performed using a 30 degree endoscope. The septum was deviated to the right. Both MT were in good position and the middle meatii were clear. Patent sinuses. There is generalized edema and mucopurulence bilaterally which was cultured. MARINE [employer]ERIES TECHNICIAN was clear. There were no complications and the patient tolerated the procedure well. Disclosure: Dr. Wilkerson receives payments from [employer] and/or [employer] for conducting educational activities and/or consulting. An [employer] and/or [employer] product may be used in your care. Dr. Wilkerson does not receive any money for products he/she or any other [facility] physicians prescribe or use. Dr. Wilkerson's choice on which product to use in your case was not influenced by his/her relationship with [employer]/or [employer]. Your physician selected the product that in his or her hands is believed to be the best option for your treatment. I performed the history and physical exam of Anne Marie Manning I discussed the management of Anne Marie Manning with the resident and/or nurse practicioner. Endoscopic exam was performed jointly by resident physician and me. I reviewed the above note and agree with the documented HPI, exams and findings and plan of care. MD Kayleen Vyas Ma 01/30/2018 2:16 PM Signed Tobacco Use: 1 packs/day, for 10 years. Quit 01/25/2013. Types: Cigarettes Was smoking cessation packet given? N/A - Patient is a non- smoker or quit >1 year ago. Was a referral initiated?N/A Patient is a non-smoker Vishnu Lee MD, MD 01/30/2018 2:54 PM Signed Budesonide Irrigations: Mix 1 capsule of budesonide in 4 oz of saline solution in the morning and in the evening. Use 4 oz of solution in the nasal cavities once in the morning and once in the evening. About 2 oz of solution will go into each nostril with each irrigation. Continue using this until you are seen at the next follow up appointment. Vishnu Lee MD Fellow, Advanced Rhinology and Skull Base Surgery [facility] [place] Section of Rhinology, Sinus, and Skull Base Surgery Referring Provider: SELF [[id number]] Allergies As of Date: 01/30/2018 Noted Allergy Reaction ULTRAM (TRAMADOL HCL) 11/20/2006 8 - GI Upset Date Reviewed: 01/30/2018 Reviewed by: Kayleen No Ma - Fully Assessed Reason for Visit: Follow Up [171] Cmt: no smell or taste Primary Visit Diagnosis:Chronic pansinusitis [J32.4] Order(s):budesonide (PULMICORT) 0.5 mg/2 mL nebulizer solutionUse 2 mL via nebulizer twice daily.Disp: 60 AmpuleRfl: 12 predniSONE (DELTASONE) 10 mg tabletTake by mouth four (4) tabs x3 days; then three (3) tabs x3days; then two (2) tabs x3 days; then one (1) tab a day x3 daysDisp: 30 tabletRfl: 0 doxycycline monohydrate (MONODOX) 100 mg capsuleTake 1 capsule by mouth twice daily for 14 days.Disp: 28 capsuleRfl: 0 SINUS CULTURE AND GRAM STAIN [SQSINUSC] Order #: [id number]. #:[id number] Prescriptions as of 01/30/2018 Sig: FLUOCINOLONE ACETONIDE OIL 0.* Use 1-2 Drops in both ears on* FLUTICASONE 50 MCG/ACTUATION * Use 2 Sprays in each nostril * LIRAGLUTIDE 0.6 MG/0.1 ML (18* Inject 1.8 mg subcutaneously * SODIUM CHLORIDE 0.9 % IRRIGAT* Please use to rinse area twic* LEVOTHYROXINE 25 MCG TABLET Take 1 tablet by mouth once d* CITALOPRAM 40 MG TABLET Take 60 mg by mouth once te* DOXEPIN 50 MG CAPSULE Take 50 mg by mouth daily at * XANAX ORAL Take 1 mg by mouth three time* TIZANIDINE 4 MG CAPSULE Take 4 mg by mouth daily at b* ATORVASTATIN 40 MG TABLET Take 10 mg by mouth once te* NOVOLOG SUBCUTANEOUS Inject subcutaneously. Use wi* LANTUS SUBCUTANEOUS Inject 60 Units subcutaneousl* PROMETHAZINE 50 MG TABLET Take 50 mg by mouth as needed. FREESTYLE LITE METER KIT EASY TOUCH TWIST LANCETS 33 G* LYRICA 50 MG CAPSULE Take 50 mg by mouth three kenrick* BLOOD SUGAR DIAGNOSTIC STRIPS Test blood sugar(s) 3 times d* LANCETS Test blood sugar(s) three kenrick* PANTOPRAZOLE 40 MG TABLET,DEL* Take 1 tablet by mouth twice * MAGNESIUM HYDROXIDE 400 MG (1* Take 400 mg by mouth twice da* PRAMIPEXOLE 1 MG TABLET Take 1 tablet by mouth daily * OXYCODONE-ACETAMINOPHEN 5 MG-* Take 1 tablet by mouth every * LANCING DEVICE WITH LANCETS K* Lancet Device Dx: 250.02 BUDESONIDE 0.5 MG/2 ML SUSPEN* Use 2 mL via nebulizer twice * PREDNISONE 10 MG TABLET Take by mouth four (4) tabs x* DOXYCYCLINE MONOHYDRATE 100 M* Take 1 capsule by mouth twice* Problem List As Of Date 01/30/2018 Noted Resolved Supervision of other high-risk [O09.8*INVALID FOR*11/18/2012 Supervision of other normal [Z34.80] INVALID FOR*11/18/2012 Sebaceous cyst [L72.3] INVALID FOR*11/18/2012 Type II or unspecified type diabetes mellitus w*INVALID FOR*02/06/2013 Tobacco use disorder [F17.200] INVALID FOR* H/O thyroid nodule [Z86.39] INVALID FOR* More... GERD (gastroesophageal reflux disease) [K21.9] INVALID FOR* Asthma [J45.909] INVALID FOR* Depressive disorder, not elsewhere classified [*INVALID FOR* Antiphospholipid antibody syndrome [D68.61] INVALID FOR* Genital warts [A63.0] INVALID FOR* Other and unspecified hyperlipidemia [E78.5] INVALID FOR* Neuropathy in diabetes [E11.40] INVALID FOR* More... Sleep apnea [G47.30] INVALID FOR* Restless leg syndrome [G25.81] INVALID FOR* DM type 2 with diabetic peripheral neuropathy [*INVALID FOR* Lateral epicondylitis of right elbow [M77.11] INVALID FOR* Degeneration of lumbar or lumbosacral intervert*INVALID FOR* Other pain disorders related to psychological f*INVALID FOR* GERD with esophagitis [K21.0] INVALID FOR* Intractable vomiting with nausea [R11.2] INVALID FOR* History of thyroid cyst [Z86.39] INVALID FOR* Mild intermittent asthma without complication [*INVALID FOR* Chronic sinusitis [J32.9] INVALID FOR* More... Chronic diffuse otitis externa of both ears [H6*INVALID FOR* Acquired stenosis of external ear canal seconda*INVALID FOR* Other instructions from your clinician: Budesonide Irrigations: Mix 1 capsule of budesonide in 4 oz of saline solution in the morning and in the evening. Use 4 oz of solution in the nasal cavities once in the morning and once in the evening. About 2 oz of solution will go into each nostril with each irrigation. Continue using this until you are seen at the next follow up appointment. Vishnu Lee MD Fellow, Advanced Rhinology and Skull Base Surgery [facility] [place] Section of Rhinology, Sinus, and Skull Base Surgery Visit Notes: >> Kayleen Bullockmira Iglesias SunJanuary 30, 2018 2:15 PM Status: Signed Tobacco Use: 1 packs/day, for 10 years. Quit 01/25/2013. Types: Cigarettes Was smoking cessation packet given? N/A - Patient is a non- smoker or quit >1 year ago. Was a referral initiated?N/A Patient is a non-smoker Prescriptions ordered this encounter Disp Refills Start End BUDESONIDE 0.5 MG/2 ML SUSPENSION FO* 60 A* 12 01/30/2018 Route: NEBULIZATION Sig: Use 2 mL via nebulizer twice daily. PREDNISONE 10 MG TABLET 30 t* 0 01/30/2018 Sig: Take by mouth four (4) tabs x3 days; then three (3) tabs x3days; then two (2) tabs x3 days; then one (1) tab a day x3 days DOXYCYCLINE MONOHYDRATE 100 MG CAPSU* 28 c* 0 01/30/2018 02/13/2018 Route: ORAL Sig: Take 1 capsule by mouth twice daily for 14 days. Disposition: Return in about 4 weeks (around 02/27/2018). Follow-up and Disposition History Recorded Encounter Status:Closed by CATARINO WILKERSON MD on 02/02/18 PROGRESS Observed: 01/30/2018 Status: COMPLETED Source: CHUNKY 2:12 PM [facility] REPOSITORY HNO ID: [id number] Author: Catarino Wilkerson Service: (none) Author Type: Physician Type: Progress Notes Filed: 02/02/2018 10:44 PM Note Text: SECTION OF RHINOLOGY, SINUS AND SKULL BASE SURGERY [facility] [place], [facility] NOTE CC: sinus issues and otorrhea ASSESSMENT and PLAN: Anne Marie Manning is a 36 year old female With CRS S/p FESS. 1) Nasal Endoscopy today reveals generalized edema and mucopurulence bilaterally 2) Switch to budesonide rinses BID 3) Antibiotic (extend doxycycline additional 2 weeks) and prednisone burst/taper today as well - will follow up results of cultures 4) Follow up 1-2 months HPI: Anne Marie Manning is a 36 year old female with a history of crs, DM2, depression, asthma and sarcoidosis. S/p FESS on . Was last seen on 11/21/17. She notes a lack of smell and taste for the past 2 months. She is rinsing her nose twice daily and using Flonase twice daily. She has had some yellowish drainage. She thinks she had some initial benefit from the surgery, but now this is back to where she was prior. She was prescribed steroids by her PCP 1 week ago for cough (dexamethasone x 7 days - unclear as to the dosage). She just finished a course of doxycycline that was prescribed by Dr. Nguyen (7 day course). Prior to this she was on bactrim about a month ago. PHYSICAL EXAM: Constitutional: ? General appearance: well developed, well nourished, without obvious deformities ? Communication: the patient speaks with a normal voice with intermittent hoarseness Head and Face: ? Overall appearance: plethoric face and neck, no obvious scars, lesions or masses ?? Facial strength: normal and equal bilaterally . No tenderness to palpation Ears, Nose, Mouth, Throat: ? External ears and nose: normal in appearance, without scars, lesions, or masses ? Ears: Bilateral T-tubes in place, some visible fluid behind TMs, TMs appear thickened ? Nasal exam: the mucosa is pink, the septum is midline, and the visible turbinates are normal on anterior rhinoscopy ? Oral cavity and oropharynx: The lips, the oral mucosa, hard and soft palates, tongue, tonsil area, and posterior pharyngeal mucosa are without lesions; there are two small apthous ulcerations of the buccal mucosa ? Neck: the neck appears symmetric without scars, and on palpation is without masses or lymphadenopathy however is plethoric Respiratory: . Normal respirations on inspection Neurological . Normal mental status . Normal orientation . Cranial Nerves 3-12 intact PROCEDURE NOTE: Procedure: Nasal endoscopy Indication: sinusitis Findings: After topical decongestion with a lidocaine/phenylephrine mix, rigid endoscopy was performed using a 30 degree endoscope. The septum was deviated to the right. Both MT were in good position and the middle meatii were clear. Patent sinuses. There is generalized edema and mucopurulence bilaterally which was cultured. [employer] TECHNICIAN was clear. There were no complications and the patient tolerated the procedure well. Disclosure: Dr. Wilkerson receives payments from [employer]/or [employer] for conducting educational activities and/or consulting. An [employer] and/or [employer] product may be used in your care. Dr. Wilkerson does not receive any money for products he/she or any other [facility] physicians prescribe or use. Dr. Wilkerson's choice on which product to use in your case was not influenced by his/her relationship with [employer]/or [employer]. Your physician selected the product that in his or her hands is believed to be the best option for your treatment. I performed the history and physical exam of Anne Marie Manning I discussed the management of Anne Marie Manning with the resident and/or nurse practicioner. Endoscopic exam was performed jointly by resident physician and me. I reviewed the above note and agree with the documented HPI, exams and findings and plan of care. Catarino Wilkerson MD WOUND Observed: 01/04/2018 Status: F Source: CHUNKY CULTURE/STAIN 1:20 PM [facility] REPOSITORY Sp. Request/Comment: - Swab Smear Result - No organisms seen No Polymorphonuclear leukocytes Culture Result - Rare Staphylococcus aureus --> ABNORMAL ALERT Moderate --> ABNORMAL ALERT Corynebacterium species --> ABNORMAL ALERT No further workup --> ABNORMAL ALERT Rare skin shant ORGANISM: Staphylococcus aureus METHOD: Minimum inhibitory concentration([employer]) Antibiotic Interp SOREN Status Erythromycin RESISTANT >=8 F Clindamycin SUSCEPTIBLE 0.25 F Testing for inducible clindamycin resistance was performed. Tetracycline SUSCEPTIBLE <=1 F Vancomycin SUSCEPTIBLE 1 F Oxacillin SUSCEPTIBLE <=0.25 F Oxacillin susceptible staphylococci are susceptible to other penicillinase stable penicillins, beta lactam/beta lactamase inhibitor combinations, anti staphyloccal cephems, and carbapenems. Trimeth sulfameth SUSCEPTIBLE <=10 F Gentamicin SUSCEPTIBLE <=0.5 F Rifampin SUSCEPTIBLE <=0.5 F Rifampin should not be used alone for antimicrobial therapy. Doxycycline SUSCEPTIBLE <=0.5 F Performed By: #### WCUL #### [facility] [address] [place], [place] [address] PROGRESS Observed: 01/04/2018 Status: COMPLETED Source: CHUNKY 12:26 PM [facility] RE[facility] HNO ID: [id number] Author: Betsy Nguyen Service: (none) Author Type: Physician Type: Progress Notes Filed: 01/04/2018 1:20 PM Note Text: Staff Physician Comments: I testify that I personally interviewed and examined the patient. I reiterate the pertinent portions of the resident's exam and history as follows: Chronic bilateral otorrhea, left still has a tube invested in it that is almost completely covered up by the hypertrophic scarring. Ct personally reviewed with clear middle ear space and thickened tympanic membrane bilateral. She has chronic otitis externa and medial canal fibrosis bilateral, this is a process of the external auditory canal and tympanic membrane and not involving the middle ear or mastoid. Will have her start dermotic and see her in 1-2 month to assess response with audio. Swab taken to verify she doesn't need topical antibiotics in addition to antiinflammatories. Would be a good candidate likely for bone-anchored auditory implant if she could get insurance coverage for it. Betsy Nguyen MD, FACS Otology/Neurotology/Skull-Base Surgery [facility] [place] [facility] History of Present Ilness Ms. ANNE MARIE MANNING is a 37 year old year old female referred by Boris Mustafa MD [facility] [address] [facility] [address] And is a patient of DO Mary Fraser DO [address] [facility] [place] [address] Communication will be via the electronic record and letter. The chief complaint for this visit is: bilateral otorrhea 37 year old female with type 2 diabetes, asthma, SIERRA, tobacco use, GERD, antiphospholipid antibody syndrome, depression, sarcoidosis, CRS s/p FESS followed by Dr Wilkerson, presenting today for evaluation of bilateral otorrhea for the last two years. She had bilateral ear tubes placed early 2016 for bilateral otalgia and otorrhea L>R per the patient. Does believe some fluid was suctioned out at time of tube placement. May have had some difficulty hearing at time of tube placement but hearing has since gotten worse. Had undergone several rounds of drops (ciprodex, ?cortisporin) and oral antibiotics without improvement. Patient reports the right ear tube was removed in clinic 8 months ago, minimal drainage, hearing seems normal. But the left tube is still in place and she continues to have thickened sticky yellow drainage, occasional otalgia, poor hearing. Last drop use ~9 moths ago. Has undergone immunologic work up: negative BLANCA, ANCA, JORGE. Elevated ESR. Lymph node biopsy 2013 with non-caseating granulomatous inflammation. Saw rheumatology at [facility], no formal autoimmune diagnosis reached. Medical History: ACTIVE PROBLEM LIST Tobacco Use Disorder H/O Thyroid Nodule Gerd (Gastroesophageal Reflux Disease) Asthma Depressive Disorder, Not Elsewhere Classified Antiphospholipid Antibody Syndrome (Hcc) Genital Warts Other and Unspecified Hyperlipidemia Neuropathy in Diabetes (Hcc) Sleep Apnea Restless Leg Syndrome Dm Type 2 With Diabetic Peripheral Neuropathy (Hcc) Lateral Epicondylitis of Right Elbow Degeneration of Lumbar Or Lumbosacral Intervertebral Disc Other Pain Disorders Related to Psychological Factors Gerd With Esophagitis Intractable Vomiting With Nausea History of Thyroid Cyst Mild Intermittent Asthma Without Complication Chronic Sinusitis Chronic Diffuse Otitis Externa of Both Ears 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 Allergies: ALLERGIES Allergen Reactions - Ultram [Tramadol Hc* GI Upset Medications: Current Outpatient Prescriptions on File Prior to Visit: sulfamethoxazole-trimethoprim (BACTRIM DS) 800-160 mg per tablet Take 1 tablet by mouth twice daily for 10 days. fluticasone (FLONASE) 50 mcg/actuation nasal spray Use 2 Sprays in each nostril once daily. liraglutide (VICTOZA 2-CLAU) 0.6 mg/0.1 mL (18 mg/3 mL) pnij Inject 1.8 mg subcutaneously once daily. levothyroxine (SYNTHROID) 25 mcg tablet Take 1 tablet by mouth once daily. citalopram (CELEXA) 40 mg tablet Take 60 mg by mouth once daily. doxepin capsule 50 mg Take 50 mg by mouth daily at bedtime. ALPRAZOLAM (XANAX ORAL) Take by mouth three times daily as needed. tiZANidine HCl 4 mg capsule Take 4 mg by mouth daily at bedtime. atorvastatin (LIPITOR) 40 mg tablet Take 40 mg by mouth once daily. INSULIN ASPART (NOVOLOG SUBCUTANEOUS) Inject subcutaneously. Use with Sliding Scale INSULIN GLARGINE,HUM.REC.ANLOG (LANTUS SUBCUTANEOUS) Inject 60 Units subcutaneously twice daily. FREESTYLE LITE METER monitoring kit EASY TOUCH TWIST LANCETS 33 gauge misc LYRICA 50 mg capsule Take 50 mg by mouth three times daily. blood sugar diagnostic (BLOOD GLUCOSE TEST) test strip Test blood sugar(s) 3 times daily. Dx: 250.02. Insulin: No Lancets lancets Test blood sugar(s) three times daily. Dx: 250.02. Insulin: Yes pantoprazole DR (PROTONIX) 40 mg tablet Take 1 tablet by mouth twice daily. Take on empty stomach, 1/2 hr before meal. Magnesium Hydroxide 400 mg (170 mg) chew Take 400 mg by mouth twice daily. pramipexole (MIRAPEX) 1 mg tablet Take 1 tablet by mouth daily at bedtime. oxyCODONE-acetaminophen (PERCOCET) 5-325 mg tablet Take 1 tablet by mouth every 8 hours as needed. Lancing Device with Lancets Kit Lancet Device Dx: 250.02 sodium chloride (STERILE SALINE) 0.9 % IRRIGATION Please use to rinse area twice daily. Please dispense seven 1 liter bottles promethazine (PHENERGAN) 50 mg tab(s) Take 50 mg by mouth as needed. No current facility-administered medications on file prior to visit. 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 NEUROLOGICAL: Negative HEAD, EYES, EARS, NOSE, AND THROAT: See HPI. Otherwise: CARDIOVASCULAR:No complaints of chest pain, irregular heart beat or dyspnea on exertion RESPIRATORY:No cough, sputum production and shortness of breath or wheezing GASTROINTESTINAL:No complaints of GI distress or change or bowel habits GENITOURINARY: No urinary frequency, blood in urine or dysuria EXTREMITY/MUSCULOSKELETAL/SKIN: negative HEMATOLOGY: Bleeding disorder - No Easy bruising - No ENDOCRINE:Negative for cold or heat intolerance, polyuria, polydipsia or goiter PSYCHOLOGICAL:neither Negative for sleep disturbance nor mood disorder nor recent psychosocial stressors Objective: Resp. rate 16, height 170.2 cm (5' 7), weight 130.2 kg (287 lb), last menstrual period 10/11/2010. Appearance: Well appearing, alert, in no acute distress, well-hydrated, well nourished. Communication: Able to speak and communicates clearly Head/Face: normocephalic, no masses, lesions, tenderness or abnormalities Facial nerve: Normal 1/6 bilaterally Skin: no skin lesions or scarring on face Ophthlamic: Full ocular motility intact; pupils symmetric Ears: AD less severe thickening and blunting of tympanic membrane .andmarks, TM appears intact, moist canal without purulent drainage thickening of tympanic membrane and blunting of landmarks, friable tissue, mucosalization of tympanic membrane and canal, tube appears largely within the middle ear. Some purulent drainage in the canal, swabbed and sent for culture Jose Alfredo Nguyen AD 256 - - 512 + - 1024 + - Nose: external exam with straight profile Oral Cavity: dentition normal; large apthous ulcers both buccal cheeks, fibrinous base with surrounding erythema. Oropharynx: Uvula hangs midline; mucosa is pink and moist; tonsils present Neck: No cervical or supraclavicular lymphadenopathy and Normal thyroid Neuro/Psych.: Alert and oriented - no nystagmus Data Review: Audio: n/a Vestibular testing battery/VNG: n/a CT sinus 06/2017: soft tissue thickening of epitympanum and lateral to ossicles without middle ear or mastoid effusion MRI: n/a Outside notes or labs: n/a Assessment: (H93.299) Abnormal auditory perception, unspecified laterality (primary encounter diagnosis) (H92.13) Otorrhea of both ears (H60.313) Chronic diffuse otitis externa of both ears (H90.0) Conductive hearing loss, bilateral (H61.323) 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 Dermotic oil drops to bilateral ears daily until follow up 2. Left ear culture - follow up results 3. Dry ear precautions 4. Audio prior to next follow up 5. Follow up Procedures: N/a Yulisa Connor MD CNOV Observed: 01/04/2018 Status: COMPLETED Source: CHUNKY 12:00 PM [facility] REPOSITORY Office Visit (OTOLMN) ANNE MARIE MANNING ([id number]) 1980 F Date Time Provider Department 01/04/18 12:00 PM BETSY NGUYEN OTOLMN During your visit today, we recorded the following information about you: Respiration Weight Height 16/minute 130.2 kg 1.702 m Adriana Hinton Ma 01/04/2018 12:09 PM Signed Tobacco Use: 1 packs/day, for 10 years. Quit 01/25/2013. Types: Cigarettes Was smoking cessation packet given? N/A - Patient is a non- smoker or quit ANDgt;1 year ago. Was a referral initiated?N/A Patient is a non-smoker Betsy Nguyen MD 01/04/2018 1:20 PM Signed Staff Physician Comments: I testify that I personally interviewed and examined the patient. I reiterate the pertinent portions of the resident's exam and history as follows: Chronic bilateral otorrhea, left still has a tube invested in it that is almost completely covered up by the hypertrophic scarring. Ct personally reviewed with clear middle ear space and thickened tympanic membrane bilateral. She has chronic otitis externa and medial canal fibrosis bilateral, this is a process of the external auditory canal and tympanic membrane and not involving the middle ear or mastoid. Will have her start dermotic and see her in 1-2 month to assess response with audio. Swab taken to verify she doesn't need topical antibiotics in addition to antiinflammatories. Would be a good candidate likely for bone-anchored auditory implant if she could get insurance coverage for it. Betsy Nguyen MD, FACS Otology/Neurotology/Skull-Base Surgery [facility] [place] [facility] History of Present Ilness Ms. ANNE MARIE MANNING is a 37 year old year old female referred by Boris Mustafa MD [address] [address] And is a patient of DO Mary Fraser DO [address] [place], [place] [id number] Communication will be via the electronic record and letter. The chief complaint for this visit is: bilateral otorrhea 37 year old female with type 2 diabetes, asthma, SIERRA, tobacco use, GERD, antiphospholipid antibody syndrome, depression, sarcoidosis, CRS s/p FESS followed by Dr Wilkerson, presenting today for evaluation of bilateral otorrhea for the last two years. She had bilateral ear tubes placed early 2016 for bilateral otalgia and otorrhea LANDgt;R per the patient. Does believe some fluid was suctioned out at time of tube placement. May have had some difficulty hearing at time of tube placement but hearing has since gotten worse. Had undergone several rounds of drops (ciprodex, ?cortisporin) and oral antibiotics without improvement. Patient reports the right ear tube was removed in clinic 8 months ago, minimal drainage, hearing seems normal. But the left tube is still in place and she continues to have thickened sticky yellow drainage, occasional otalgia, poor hearing. Last drop use ~9 moths ago. Has undergone immunologic work up: negative BLANCA, ANCA, JORGE. Elevated ESR. Lymph node biopsy 2013 with non-caseating granulomatous inflammation. Saw rheumatology at [facility], no formal autoimmune diagnosis reached. Medical History: ACTIVE PROBLEM LIST Tobacco Use Disorder H/O Thyroid Nodule Gerd (Gastroesophageal Reflux Disease) Asthma Depressive Disorder, Not Elsewhere Classified Antiphospholipid Antibody Syndrome (Hcc) Genital Warts Other and Unspecified Hyperlipidemia Neuropathy in Diabetes ([facility]) Sleep Apnea Restless Leg Syndrome Dm Type 2 With Diabetic Peripheral Neuropathy (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 Allergies: ALLERGIES Allergen Reactions - Ultram [Tramadol Hc* GI Upset Medications: Current Outpatient Prescriptions on File Prior to Visit: sulfamethoxazole-trimethoprim (BACTRIM DS) 800-160 mg per tablet Take 1 tablet by mouth twice daily for 10 days. fluticasone (FLONASE) 50 mcg/actuation nasal spray Use 2 Sprays in each nostril once daily. liraglutide (VICTOZA 2-CLAU) 0.6 mg/0.1 mL (18 mg/3 mL) pnij Inject 1.8 mg subcutaneously once daily. levothyroxine (SYNTHROID) 25 mcg tablet Take 1 tablet by mouth once daily. citalopram (CELEXA) 40 mg tablet Take 60 mg by mouth once daily. doxepin capsule 50 mg Take 50 mg by mouth daily at bedtime. ALPRAZOLAM (XANAX ORAL) Take by mouth three times daily as needed. tiZANidine HCl 4 mg capsule Take 4 mg by mouth daily at bedtime. atorvastatin (LIPITOR) 40 mg tablet Take 40 mg by mouth once daily. INSULIN ASPART (NOVOLOG SUBCUTANEOUS) Inject subcutaneously. Use with Sliding Scale INSULIN GLARGINE,HUM.REC.ANLOG (LANTUS SUBCUTANEOUS) Inject 60 Units subcutaneously twice daily. FREESTYLE LITE METER monitoring kit EASY TOUCH TWIST LANCETS 33 gauge misc LYRICA 50 mg capsule Take 50 mg by mouth three times daily. blood sugar diagnostic (BLOOD GLUCOSE TEST) test strip Test blood sugar(s) 3 times daily. Dx: 250.02. Insulin: No Lancets lancets Test blood sugar(s) three times daily. Dx: 250.02. Insulin: Yes pantoprazole DR (PROTONIX) 40 mg tablet Take 1 tablet by mouth twice daily. Take on empty stomach, 1/2 hr before meal. Magnesium Hydroxide 400 mg (170 mg) chew Take 400 mg by mouth twice daily. pramipexole (MIRAPEX) 1 mg tablet Take 1 tablet by mouth daily at bedtime. oxyCODONE-acetaminophen (PERCOCET) 5-325 mg tablet Take 1 tablet by mouth every 8 hours as needed. Lancing Device with Lancets Kit Lancet Device Dx: 250.02 sodium chloride (STERILE SALINE) 0.9 % IRRIGATION Please use to rinse area twice daily. Please dispense seven 1 liter bottles promethazine (PHENERGAN) 50 mg tab(s) Take 50 mg by mouth as needed. No current facility-administered medications on file prior to visit. 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 NEUROLOGICAL: Negative HEAD, EYES, EARS, NOSE, AND THROAT: See HPI. Otherwise: CARDIOVASCULAR:No complaints of chest pain, irregular heart beat or dyspnea on exertion RESPIRATORY:No cough, sputum production and shortness of breath or wheezing GASTROINTESTINAL:No complaints of GI distress or change or bowel habits GENITOURINARY: No urinary frequency, blood in urine or dysuria EXTREMITY/MUSCULOSKELETAL/SKIN: negative HEMATOLOGY: Bleeding disorder - No Easy bruising - No ENDOCRINE:Negative for cold or heat intolerance, polyuria, polydipsia or goiter PSYCHOLOGICAL:neither Negative for sleep disturbance nor mood disorder nor recent psychosocial stressors Objective: Resp. rate 16, height 170.2 cm (5' 7ANDquot;), weight 130.2 kg (287 lb), last menstrual period 10/11/2010. Appearance: Well appearing, alert, in no acute distress, well-hydrated, well nourished. Communication: Able to speak and communicates clearly Head/Face: normocephalic, no masses, lesions, tenderness or abnormalities Facial nerve: Normal 1/6 bilaterally Skin: no skin lesions or scarring on face Ophthlamic: Full ocular motility intact; pupils symmetric Ears: AD less severe thickening and blunting of tympanic membrane .andmarks, TM appears intact, moist canal without purulent drainage thickening of tympanic membrane and blunting of landmarks, friable tissue, mucosalization of tympanic membrane and canal, tube appears largely within the middle ear. Some purulent drainage in the canal, swabbed and sent for culture Jose Alfredo Nguyen AD 256 - - 512 + - 1024 + - Nose: external exam with straight profile Oral Cavity: dentition normal; large apthous ulcers both buccal cheeks, fibrinous base with surrounding erythema. Oropharynx: Uvula hangs midline; mucosa is pink and moist; tonsils present Neck: No cervical or supraclavicular lymphadenopathy and Normal thyroid Neuro/Psych.: Alert and oriented - no nystagmus Data Review: Audio: n/a Vestibular testing battery/VNG: n/a CT sinus 06/2017: soft tissue thickening of epitympanum and lateral to ossicles without middle ear or mastoid effusion MRI: n/a Outside notes or labs: n/a Assessment: (H93.299) Abnormal auditory perception, unspecified laterality (primary encounter diagnosis) (H92.13) Otorrhea of both ears (H60.313) Chronic diffuse otitis externa of both ears (H90.0) Conductive hearing loss, bilateral (H61.323) 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 Dermotic oil drops to bilateral ears daily until follow up 2. Left ear culture - follow up results 3. Dry ear precautions 4. Audio prior to next follow up 5. 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, bilateral [H61.323] Order(s):Fluocinolone Acetonide Oil (DERMOTIC OIL) 0.01 % dropUse 1-2 Drops in both ears once daily.Disp: 1 BottleRfl: 3 COMPREHENSIVE AUDIOLOGIC EXAM [98227AOL] Order #: [id number] WOUND CULTURE AND GRAM STAIN [SQWCUL] Order #: [id number] Prescriptions as of 01/04/2018 Sig: SULFAMETHOXAZOLE 800 MG-TRIME* Take 1 tablet by mouth twice * FLUTICASONE 50 MCG/ACTUATION * Use 2 Sprays in each nostril * LIRAGLUTIDE 0.6 MG/0.1 ML (18* Inject 1.8 mg subcutaneously * LEVOTHYROXINE 25 MCG TABLET Take 1 tablet by mouth once d* CITALOPRAM 40 MG TABLET Take 60 mg by mouth once te* DOXEPIN 50 MG CAPSULE Take 50 mg by mouth daily at * XANAX ORAL Take by mouth three times da* TIZANIDINE 4 MG CAPSULE Take 4 mg by mouth daily at b* ATORVASTATIN 40 MG TABLET Take 40 mg by mouth once te* NOVOLOG SUBCUTANEOUS Inject subcutaneously. Use wi* LANTUS SUBCUTANEOUS Inject 60 Units subcutaneousl* FREESTYLE LITE METER KIT EASY TOUCH TWIST LANCETS 33 G* LYRICA 50 MG CAPSULE Take 50 mg by mouth three kenrick* BLOOD SUGAR DIAGNOSTIC STRIPS Test blood sugar(s) 3 times d* LANCETS Test blood sugar(s) three kenrick* PANTOPRAZOLE 40 MG TABLET,DEL* Take 1 tablet by mouth twice * MAGNESIUM HYDROXIDE 400 MG (1* Take 400 mg by mouth twice da* PRAMIPEXOLE 1 MG TABLET Take 1 tablet by mouth daily * OXYCODONE-ACETAMINOPHEN 5 MG-* Take 1 tablet by mouth every * LANCING DEVICE WITH LANCETS K* Lancet Device Dx: 250.02 FLUOCINOLONE ACETONIDE OIL 0.* Use 1-2 Drops in both ears on* SODIUM CHLORIDE 0.9 % IRRIGAT* Please use to rinse area twic* PROMETHAZINE 50 MG TABLET Take 50 mg by mouth as needed. Medication notes this encounter LYRICA 50 MG CAPSULE >> Adriana Hinton Ma 01/04/2018 12:07 PM >> ADRIANA HINTON MA SunJan 04, 2018 12:07 PM 75mg three times per day PROMETHAZINE 50 MG TABLET >> Adriana Hinton Ma 01/04/2018 12:08 PM >> ADRIANA HINTON MA SunJan 04, 2018 12:08 PM prn Problem List As Of Date 01/04/2018 Noted Resolved Supervision of other high-risk [O09.8*INVALID FOR*11/18/2012 Supervision of other normal [Z34.80] INVALID FOR*11/18/2012 Sebaceous cyst [L72.3] INVALID FOR*11/18/2012 Type II or unspecified type diabetes mellitus w*INVALID FOR*02/06/2013 Tobacco use disorder [F17.200] INVALID FOR* H/O thyroid nodule [Z86.39] INVALID FOR* More... GERD (gastroesophageal reflux disease) [K21.9] INVALID FOR* Asthma [J45.909] INVALID FOR* Depressive disorder, not elsewhere classified [*INVALID FOR* Antiphospholipid antibody syndrome [D68.61] INVALID FOR* Genital warts [A63.0] INVALID FOR* Other and unspecified hyperlipidemia [E78.5] INVALID FOR* Neuropathy in diabetes [E11.40] INVALID FOR* More... Sleep apnea [G47.30] INVALID FOR* Restless leg syndrome [G25.81] INVALID FOR* DM type 2 with diabetic peripheral neuropathy [*INVALID FOR* Lateral epicondylitis of right elbow [M77.11] INVALID FOR* Degeneration of lumbar or lumbosacral intervert*INVALID FOR* Other pain disorders related to psychological f*INVALID FOR* GERD with esophagitis [K21.0] INVALID FOR* Intractable vomiting with nausea [R11.2] INVALID FOR* History of thyroid cyst [Z86.39] INVALID FOR* Mild intermittent asthma without complication [*INVALID FOR* Chronic sinusitis [J32.9] INVALID FOR* More... 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 Quit 01/25/2013. Types: Cigarettes Was smoking cessation packet given? N/A - Patient is a non- smoker or quit >1 year ago. Was a referral initiated?N/A Patient is a non-smoker Prescriptions ordered this encounter Disp Refills Start End FLUOCINOLONE ACETONIDE OIL 0.01 % EA* 1 Eloy* 3 01/04/2018 Route: BOTH EARS Sig: Use 1-2 Drops in both ears once daily. Follow-up and Disposition History Recorded Encounter Status:Closed by BETSY NGUYEN MD on 01/04/18 HIV - [facility] Collected: 01/01/2018 Status: F Source: [place] 2:28 PM [facility] REPOSITORY TYPE CODE TESTS RESULT OUT OF RANGE REFERENCE UNITS LAB L3890.6005 Nonreactive Normal HIV - [facility] Non-Reactive Performed By: #### L3890.6005 #### [facility] [address], [address] HEPATITIS B SURFACE Collected: 01/01/2018 Status: F Source: [facility] 2:28 PM [facility] REPOSITORY TYPE CODE TESTS RESULT OUT OF RANGE REFERENCE UNITS LAB L3100.0400 Negative Normal HB Negative SURF AG Result Comment: Performed at: - [facility] [id number] [place], [place] [id number] Wellness Spa Manager: Chase Cohn PhD, Phone: [phone] Performed By: #### L3100.0390, L3400.1610 #### [facility] (refer to report for specific site) refer to report for address and phone number HSV 1 AND 2 IGG Collected: 01/01/2018 Status: F Source: [place] 2:28 PM [facility] REPOSITORY TYPE CODE TESTS RESULT OUT OF RANGE REFERENCE UNITS LAB L3400.1620 0.00-0.90 index High HSV 1 IgG 18.60 Result Comment: Negative <0.91 Equivocal 0.91 - 1.09 Positive >1.09 Note: Negative indicates no antibodies detected to HSV-1. Equivocal may suggest early infection. If clinically appropriate, retest at later date. Positive indicates antibodies detected to HSV-1. LAB L3400.1630 0.00-0.90 index Normal < HSV 2 IgG 0.91 Result Comment: Negative <0.91 Equivocal 0.91 - 1.09 Positive >1.09 Note: Negative indicates no antibodies detected to HSV-2. Equivocal may suggest early infection. If clinically appropriate, retest at later date. Positive indicates antibodies detected to HSV-2. Performed By: #### L3100.0390, L3400.1610 #### [facility] (refer to report for specific site) refer to report for address and phone number HEPATITIS C ANTIBODIES Collected: 01/01/2018 Status: F Source: [place] 2:28 PM [facility] REPOSITORY TYPE CODE TESTS RESULT OUT OF RANGE REFERENCE UNITS LAB L3100.0650 0.0-0.9 s/co ratio Normal HEP C AB <0.1 Result Comment: Negative: < 0.8 Indeterminate: 0.8 - 0.9 Positive: > 0.9 The CDC recommends that a positive HCV antibody result be followed up with a HCV Nucleic Acid Amplification test (443049). Performed at: - [facility] [address] [id number] Wellness Spa Manager: Chase Cohn PhD, Phone: [phone] Performed By: #### L3100.0625 #### [facility] (refer to report for specific site) refer to report for address and phone number RAPID PLASMIN REAGIN Collected: 01/01/2018 Status: F Source: [place] (RPR) 2:28 PM [facility] REPOSITORY TYPE CODE TESTS RESULT OUT OF REFERENCE UNITS RANGE LAB L700.5000 NONREACTIVE NONREACTIVE Normal RPR Performed By: #### L700.5000 #### [facility] [address] [place], [address] MISCELLANEOUS LAB Collected: 01/01/2018 Status: F Source: [place] PROCEDURE 2:28 PM [facility] REPOSITORY Order Comment: Comments: #[id number] HSV 1 AND 2 IGM SERUM RF Test(s) Ordered: #[id number] HSV 1 AND 2 IGM SERUM RF TYPE CODE TESTS RESULT OUT OF RANGE REFERENCE UNITS LAB L801.1541 Normal [facility] LAB TEST Result Comment: TEST RESULT UNITS REF INTERVAL HSV, IgM I/II Combination <0.91 Ratio 0.00 - 0.90 Negative <0.91 Equivocal 0.91 - 1.09 Positive >1.09 . TESTING PERFORMED AT [facility]. ORIGINAL REPORT ON FILE IN LAB CONTAINS ADDITIONAL TEST SITE INFORMATION. Performed By: #### L801.1541 #### [facility] [address] [place], [address] CT/NG [facility] BY PCR Collected: 01/01/2018 Status: F Source: [place] 2:00 PM [facility] REPOSITORY TYPE CODE TESTS RESULT OUT OF RANGE REFERENCE UNITS LAB L8200.2100 Negative Normal Chlam Negative Trac PCR LAB L8200.2200 Negative Normal NG by Negative PCR Performed By: #### L8200.2000 #### [facility] [address] [place], [address] HSV 1/2 BY PCR Collected: 01/01/2018 Status: F Source: [place] 2:00 PM [facility] REPOSITORY Order Comment: ORAL LESIONS TYPE CODE TESTS RESULT OUT OF RANGE REFERENCE UNITS LAB L3400.1650 Negative Normal HSV 1 Negative BY PCR LAB L3400.1655 Negative Normal HSV 2 Negative BY PCR Result Comment: This test was developed and its performance characteristics determined by [employer]. It has not been cleared or approved by the U.S. Food and Drug Administration. The FDA has determined that such clearance or approval is not necessary. This test is used for clinical purposes. It should not be regarded as investigational or research. Performed at: [address] [id number] Wellness Spa Manager: Daryn Roman MD, Phone: [phone] Performed By: #### L3400.1645 #### [facility] (refer to report for specific site) refer to report for address and phone number HSV 1/2 BY PCR Collected: 01/01/2018 Status: F Source: [place] 2:00 PM [facility] REPOSITORY Order Comment: VULVA LESION TYPE CODE TESTS RESULT OUT OF RANGE REFERENCE UNITS LAB L3400.1650 Negative Normal HSV 1 Negative BY PCR LAB L3400.1655 Negative Normal HSV 2 Negative BY PCR Result Comment: This test was developed and its performance characteristics determined by [employer]. It has not been cleared or approved by the U.S. Food and Drug Administration. The FDA has determined that such clearance or approval is not necessary. This test is used for clinical purposes. It should not be regarded as investigational or research. Performed at: [address] [id number] Wellness Spa Manager: Daryn Roman MD, Phone: [phone] Performed By: #### L3400.1645 #### [facility] (refer to report for specific site) refer to report for address and phone number D-DIMER QUANTITATIVE Collected: 11/26/2017 Status: F Source: [place] (DVT/PE) 10:32 AM [facility] REPOSITORY TYPE CODE TESTS RESULT OUT OF RANGE REFERENCE UNITS LAB L300.8000 0.27-0.49 FEU/ug/m Normal D-DIMER 0.44 QUANT Result Comment: NORMAL D-Dimer level (<0.50) indicates no DVT or PE. Performed By: #### L300.8000 #### [facility] [address] [facility]. [place], [place], [address] CBC W/DIFF, AUTOMATED Collected: 11/26/2017 Status: F Source: [place] 10:32 AM [facility] REPOSITORY TYPE CODE TESTS RESULT OUT OF RANGE REFERENCE UNITS LAB L100.1000 4.4-11.0 K/mm3 Normal WBC 5.7 LAB L100.1200 4.2-5.4 M/mm3 Low RBC 3.94 LAB L100.1300 12.0-15.0 g/dl Low HGB 10.6 LAB L100.1400 37-47 % Low HCT 34.6 LAB L100.1500 81-99 fL Normal MCV 87.8 LAB L100.1600 27.0-32.0 pg Low MCH 26.9 LAB L100.1700 32-36 g/gl Low MCHC 30.6 LAB L100.1810 11.6-14.6 % High RDW CV 16.2 LAB L100.1820 35.1-43.9 fl High RDW SD 51.7 LAB L100.1900 150-450 K/mm3 Normal PLT 258 LAB L100.2000 6.2-12.0 fl Normal MPV 10.2 LAB L100.2100 47-70 % Normal NEUT% 59.9 LAB L100.2200 19-41 % Normal LY% 29.9 LAB L100.2300 0-10 % Normal MONO% 7.9 LAB L100.2400 0-5 % Normal EO% 1.6 LAB L100.2500 0-1 % Normal BASO% 0.2 LAB L100.2550 0.0-0.9 % Normal IM GRAN % 0.500 Result Comment: IG% - Immature Granulocytes (promyelocytes, myelocytes and metamyelocytes) > 1% indicates that a LEFT SHIFT is Present. LAB L100.2620 2.0-7.7 X10 3/uL Normal Absolute Neut 3.4 LAB L100.2720 0.83-4.51 X10 3/ul Normal Absolute Lymph 1.71 Performed By: #### L100.0100 #### [facility] [address] [place], [address] PROGRESS Observed: 11/21/2017 Status: COMPLETED Source: [place] 4:03 PM [facility] REPOSITORY HNO ID: [id number] Author: Catarino Wilkerson Service: (none) Author Type: Physician Type: Progress Notes Filed: 11/21/2017 4:18 PM Note Text: SECTION OF RHINOLOGY, SINUS AND SKULL BASE SURGERY Head and Neck [place] NOTE CC: sinus issues and otorrhea ASSESSMENT and PLAN: Anne Marie Manning is a 36 year old female With CRS S/p FESS 1) Nasal Endoscopy today reveals that siniuses are healing well. 2 )re start flonase and saline irrigation 3) f/u in 4 moths. HPI: Anne Marie Manning is a 36 year old female with a history of crs, DM2, depression, asthma and sarcoidosis. S/p FESS on . She has been rinsing with saline. She is not using flonase. She reports chunky debris comes out of her nose when rinsing. Sense of smell is improving. Can breathe out nose. PHYSICAL EXAM: Constitutional: ? General appearance: well developed, well nourished, without obvious deformities ? Communication: the patient speaks with a normal voice with intermittent hoarseness Head and Face: ? Overall appearance: plethoric face and neck, no obvious scars, lesions or masses ?? Facial strength: normal and equal bilaterally . No tenderness to palpation Ears, Nose, Mouth, Throat: ? External ears and nose: normal in appearance, without scars, lesions, or masses ? Ears: Bilateral T-tubes in place, some visible fluid behind TMs, TMs appear thickened ? Nasal exam: the mucosa is pink, the septum is midline, and the visible turbinates are normal on anterior rhinoscopy ? Oral cavity and oropharynx: The lips, the oral mucosa, hard and soft palates, tongue, tonsil area, and posterior pharyngeal mucosa are without lesions; there are two small apthous ulcerations of the buccal mucosa ? Neck: the neck appears symmetric without scars, and on palpation is without masses or lymphadenopathy however is plethoric Respiratory: . Normal respirations on inspection Neurological . Normal mental status . Normal orientation . Cranial Nerves 3-12 intact PROCEDURE NOTE: Procedure: Nasal endoscopy Indication: sinusitis Findings: After topical decongestion with a lidocaine/phenylephrine mix, rigid endoscopy was performed using a 30 degree endoscope. The septum was deviated to the right.. Both MT were in good position and the middle meatii were clear. Patent sinuses. No mucus, pus or polyps were seen. [employer] TECHNICIAN was clear. There were no complications and the patient tolerated the procedure well. Disclosure: Dr. Wilkerson receives payments from [employer]/or [employer] for conducting educational activities and/or consulting. An [employer] and/or [employer] product may be used in your care. Dr. Wilkerson does not receive any money for products he/she or any other [facility] physicians prescribe or use. Dr. Wilkerson's choice on which product to use in your case was not influenced by his/her relationship with [employer] and/or [employer]. Your physician selected the product that in his or her hands is believed to be the best option for your treatment. CNOV Observed: 11/21/2017 Status: COMPLETED Source: [place] 3:45 PM [facility] REPOSITORY Office Visit (OTOLMN) ANNE MARIE MANNING ([id number]) 1980 F Date Time Provider Department 11/21/17 3:45 PM CATARINO WILKERSON During your visit today, we recorded the following information about you: Wendi Dennison Ma 11/21/2017 3:45 PM Signed Tobacco Use: 1 packs/day, for 10 years. Quit 01/25/2013. Types: Cigarettes Was smoking cessation packet given? N/A - Patient is a non- smoker or quit ANDgt;1 year ago. Was a referral initiated?N/A Patient is a non-smoker Catarino Wilkerson MD 11/21/2017 4:18 PM Signed SECTION OF RHINOLOGY, SINUS AND SKULL BASE SURGERY Head and Neck [place] NOTE CC: sinus issues and otorrhea ASSESSMENT and PLAN: Anne Marie Nigel is a 36 year old female With CRS S/p FESS 1) Nasal Endoscopy today reveals that siniuses are healing well. 2 )re start flonase and saline irrigation 3) f/u in 4 moths. HPI: Anne Marie Manning is a 36 year old female with a history of crs, DM2, depression, asthma and sarcoidosis. S/p FESS on . She has been rinsing with saline. She is not using flonase. She reports chunky debris comes out of her nose when rinsing. Sense of smell is improving. Can breathe out nose. PHYSICAL EXAM: Constitutional: ? General appearance: well developed, well nourished, without obvious deformities ? Communication: the patient speaks with a normal voice with intermittent hoarseness Head and Face: ? Overall appearance: plethoric face and neck, no obvious scars, lesions or masses ?? Facial strength: normal and equal bilaterally . No tenderness to palpation Ears, Nose, Mouth, Throat: ? External ears and nose: normal in appearance, without scars, lesions, or masses ? Ears: Bilateral T-tubes in place, some visible fluid behind TMs, TMs appear thickened ? Nasal exam: the mucosa is pink, the septum is midline, and the visible turbinates are normal on anterior rhinoscopy ? Oral cavity and oropharynx: The lips, the oral mucosa, hard and soft palates, tongue, tonsil area, and posterior pharyngeal mucosa are without lesions; there are two small apthous ulcerations of the buccal mucosa ? Neck: the neck appears symmetric without scars, and on palpation is without masses or lymphadenopathy however is plethoric Respiratory: . Normal respirations on inspection Neurological . Normal mental status . Normal orientation . Cranial Nerves 3-12 intact PROCEDURE NOTE: Procedure: Nasal endoscopy Indication: sinusitis Findings: After topical decongestion with a lidocaine/phenylephrine mix, rigid endoscopy was performed using a 30 degree endoscope. The septum was deviated to the right.. Both MT were in good position and the middle meatii were clear. Patent sinuses. No mucus, pus or polyps were seen. [employer] TECHNICIAN was clear. There were no complications and the patient tolerated the procedure well. Disclosure: Dr. Wilkerson receives payments from [employer] and/or [employer] for conducting educational activities and/or consulting. An [employer] and/or [employer] product may be used in your care. Dr. Wilkerson does not receive any money for products he/she or any other [facility] physicians prescribe or use. Dr. Wilkerson's choice on which product to use in your case was not influenced by his/her relationship with [employer] and/or [employer]. Your physician selected the product that in his or her hands is believed to be the best option for your treatment. Referring Provider: SELF [200] Allergies As of Date: 11/21/2017 Noted Allergy Reaction ULTRAM (TRAMADOL HCL) 11/20/2006 8 - GI Upset Date Reviewed: 11/21/2017 Reviewed by: Catarino Wilkerson - Fully Assessed Reason for Visit: Surgical Followup [104] Primary Visit Diagnosis:Chronic pansinusitis [J32.4] Order(s):fluticasone (FLONASE) 50 mcg/actuation nasal sprayUse 2 Sprays in each nostril once daily.Disp: 1 BottleRfl: 11 Prescriptions as of 11/21/2017 Sig: LIRAGLUTIDE 0.6 MG/0.1 ML (18* Inject 1.8 mg subcutaneously * SODIUM CHLORIDE 0.9 % IRRIGAT* Please use to rinse area twic* LEVOTHYROXINE 25 MCG TABLET Take 1 tablet by mouth once d* CITALOPRAM 40 MG TABLET Take 60 mg by mouth once te* DOXEPIN 50 MG CAPSULE Take 50 mg by mouth daily at * XANAX ORAL Take by mouth three times da* TIZANIDINE 4 MG CAPSULE Take 4 mg by mouth daily at b* ATORVASTATIN 40 MG TABLET Take 40 mg by mouth once te* NOVOLOG SUBCUTANEOUS Inject subcutaneously. Use wi* LANTUS SUBCUTANEOUS Inject 60 Units subcutaneousl* PROMETHAZINE 50 MG TABLET Take 50 mg by mouth as needed. FREESTYLE LITE METER KIT EASY TOUCH TWIST LANCETS 33 G* LYRICA 50 MG CAPSULE Take 50 mg by mouth three kenrick* BLOOD SUGAR DIAGNOSTIC STRIPS Test blood sugar(s) 3 times d* LANCETS Test blood sugar(s) three kenrick* PANTOPRAZOLE 40 MG TABLET,DEL* Take 1 tablet by mouth twice * MAGNESIUM HYDROXIDE 400 MG (1* Take 400 mg by mouth twice da* PRAMIPEXOLE 1 MG TABLET Take 1 tablet by mouth daily * OXYCODONE-ACETAMINOPHEN 5 MG-* Take 1 tablet by mouth every * LANCING DEVICE WITH LANCETS K* Lancet Device Dx: 250.02 FLUTICASONE 50 MCG/ACTUATION * Use 2 Sprays in each nostril * Problem List As Of Date 11/21/2017 Noted Resolved Supervision of other high-risk [O09.8*INVALID FOR*11/18/2012 Supervision of other normal [Z34.80] INVALID FOR*11/18/2012 Sebaceous cyst [L72.3] INVALID FOR*11/18/2012 Type II or unspecified type diabetes mellitus w*INVALID FOR*02/06/2013 Tobacco use disorder [F17.200] INVALID FOR* H/O thyroid nodule [Z86.39] INVALID FOR* More... GERD (gastroesophageal reflux disease) [K21.9] INVALID FOR* Asthma [J45.909] INVALID FOR* Depressive disorder, not elsewhere classified [*INVALID FOR* Antiphospholipid antibody syndrome [D68.61] INVALID FOR* Genital warts [A63.0] INVALID FOR* Other and unspecified hyperlipidemia [E78.5] INVALID FOR* Neuropathy in diabetes [E11.40] INVALID FOR* More... Sleep apnea [G47.30] INVALID FOR* Restless leg syndrome [G25.81] INVALID FOR* DM type 2 with diabetic peripheral neuropathy [*INVALID FOR* Lateral epicondylitis of right elbow [M77.11] INVALID FOR* Degeneration of lumbar or lumbosacral intervert*INVALID FOR* Other pain disorders related to psychological f*INVALID FOR* GERD with esophagitis [K21.0] INVALID FOR* Intractable vomiting with nausea [R11.2] INVALID FOR* History of thyroid cyst [Z86.39] INVALID FOR* Mild intermittent asthma without complication [*INVALID FOR* Chronic sinusitis [J32.9] INVALID FOR* More... Visit Notes: >> Wendi Dennison Kelsie SunNov 21, 2017 3:44 PM Status: Signed Tobacco Use: 1 packs/day, for 10 years. Quit 01/25/2013. Types: Cigarettes Was smoking cessation packet given? N/A - Patient is a non- smoker or quit >1 year ago. Was a referral initiated?N/A Patient is a non-smoker Prescriptions ordered this encounter Disp Refills Start End FLUTICASONE 50 MCG/ACTUATION NASAL S* 1 Eloy* 11 11/21/2017 Route: EACH NOSTRIL Sig: Use 2 Sprays in each nostril once daily. Encounter Status:Closed by CATARINO WILKERSON MD on 11/21/17 EMERGENCY REPORT Observed: 10/21/2017 Status: F Source: [place] [place] 8:08 AM [facility] EMERGENCY DEPARTMENT REPORT NAME NUMBER SEX AGE ADMIT DISC TYPE MED.RECORD# NIGEL CARRASQUILLO [id number] F 36 10/13/17 10/14/17 Yanet [id number] ROOM:ER-A DATE OF :1980 PHYSICIAN NO.:[id number] PHYSICIAN NAME:E-Sign: Dr. Leif Sher D.O. PHYSICIAN: FAMILY PHYSICIAN: NO DOCTOR HISTORY OF PRESENT ILLNESS: This is a 36-year-old white female complaining of right lower quadrant abdominal pain radiating to the right lower back since yesterday. The patient states the pain has been gradually getting worse. She has complained of bad nausea and did vomit once. She rates the severity of the abdominal pain as a 7 on a scale of 1 to 10. She took some Phenergan, which did not help her nausea. PAST MEDICAL HISTORY: She has a past medical history of diabetes mellitus, asthma and chronic back pain. She just had sinus surgery at the [facility] on October 08, 2017. She did call the [facility] today and discussed her symptoms, and they advised her to come here to the Emergency Department for an evaluation. Her primary care physician is Dr. Mary Lopez. PAST SURGICAL HISTORY: Cholecystectomy and a hysterectomy. ALLERGIES: The patient is allergic to Ultram. PHYSICAL EXAMINATION: The patient is alert and oriented x3. She does appear to be in moderate distress. She is pleasant and cooperative. HEENT: Pupils are equal, round, and reactive to light. Red reflex is intact bilaterally. Extraocular muscles are intact. Mouth: Oral mucous membranes are dry. No pharyngeal erythema. Uvula is midline and elevates. Neck: Supple. Trachea is midline. No JVD or lymphadenopathy. No posterior cervical tenderness. No nuchal rigidity. Lungs are clear to auscultation in all lung branham. No adventitious sounds are noted. Cardiovascular: Heart is a regular rate and rhythm without murmur. Abdomen: Soft and nondistended but moderately tender in the right lower quadrant on palpation. No distention. Bowel sounds are present x4 quadrants. Some voluntary guarding is noted but no involuntary guarding. No rigidity. Extremities: No edema or cyanosis. Peripheral pulses are intact. No motor or sensory deficits are noted. Hand skin diving teacher are strong and symmetric. Skin exhibits no rash. DIAGNOSTIC DATA: CT of the abdomen and pelvis showed prominent formed colonic stool noted suggesting constipation. No acute appendicitis, colitis or diverticulitis. No bowel obstruction. No free air is identified to suggest perforation. Prior cholecystectomy is noted. No hydronephrosis. Sodium is 136, potassium 4.1, chloride 102, CO2 of 25.4, glucose 191, BUN 13 and creatinine 0.7. Liver functions were all within normal limits. Lipase was normal at 32. White count was 9.4, hemoglobin 11.7, hematocrit 35.3, and platelet count 295,000. EMERGENCY DEPARTMENT COURSE AND TREATMENT: The patient was given a prescription for Bentyl 20 mg one p.o. every six hours as needed for abdominal pain, dispense #30 with no refill. Prescription for Zofran ODT 4 mg one every eight hours as needed for nausea and vomiting; dispense #15 with no refills. The patient is to rest. I encouraged fluids. Take the medication as prescribed and follow up with Dr. Lopez in two to four days for evaluation. If her symptoms become worse or if any other problems develop, return here to the Emergency Department. EMERGENCY ROOM REPORT NIGEL Higuera [facility] EMERGENCY DEPARTMENT REPORT NAME NUMBER SEX AGE ADMIT DISC TYPE MED.RECORD# NIGEL CARRASQUILLO [id number] F 36 10/13/17 10/14/17 E.R. [id number] ROOM:ER-A DATE OF :1980 PHYSICIAN NO.:[id number] PHYSICIAN NAME:E-Sign: Dr. Leif Sher D.O. PHYSICIAN: FAMILY PHYSICIAN: NO DOCTOR DIAGNOSIS: Abdominal pain. D: Leif Sher DO TD: 07:06 JOB #: [id number] Electronically signed by: E-Sign: Dr. Leif Sher D.O. 10/21/17 08:08 Transcribed by: jhonatan 10/15/2017 15:21 EMERGENCY ROOM REPORT NIGEL CARRASQUILLO 2 CT ABDOMEN/PELVIS W Observed: 10/13/2017 Status: F Source: [place] 10:30 PM [place] [id number] Patient: ANNE MARIE MANNING Phone#: : [phone] Age: 36 Gender: F Pt. Type: ER Account: [id number] Location: 052 Ordering: LEIF SHER Exam Date: 10/13/2017/22:14 Family Phys: NO DOCTOR Charge Code: [id number] Physician: Bamberg Order #: [id number] DLP Dose#: PROCEDURE: CT ABDOMEN/PELVIS WITH CONTRAST COMPARISON: [facility], CT, ABDOMEN/PELVIS W CON, 07/05/2017, 11:39. INDICATIONS: Abdominal pain TECHNIQUE: After obtaining the patient's consent, CT images were created with non-ionic intravenous contrast material. All CT scans at this facility use dose modulation, iterative reconstruction, and/or weight based dosing when appropriate to reduce radiation dose to as low as reasonably achievable. IV CONTRAST: Omnipaque 350,80ml TOTAL DOSE: 50.2 CTDIvol(mGy) FINDINGS: LIVER: Normal. No enlargement, atrophy, abnormal density, or significant focal lesion. BILIARY: Gallbladder is absent. Surgical clips are present in the gallbladder fossa. PANCREAS: Normal. No lesion, fluid collection, ductal dilatation, or atrophy. SPLEEN: Normal. No enlargement or focal lesion. KIDNEYS: Normal. No mass, obstruction, or calcification. ADRENALS: Normal. No mass or enlargement. AORTA/VASCULAR: Normal. No aneurysm or dissection. RETROPERITONEUM: Normal. No mass or adenopathy. BOWEL/MESENTERY: Moderate stool volume diffusely. No visible mass, obstruction, or bowel wall thickening. ABDOMINAL WALL: Normal. No mass or hernia. URINARY BLADDER: Normal. No visible focal wall thickening, lesion, or calculus. PELVIC NODES: Normal. No adenopathy. Continued Report - Page 2 of 2 Patient: ANNE MARIE MANNING Phone#: : 1980 Age: 36 Gender: F Pt. Type: ER Account: [id number] Location: 052 Ordering: LEIF LavelleNelly DIDTAMIKA Exam Date: 10/13/2017/22:14 Family Phys: NO DOCTOR Charge Code: [id number] Physician: Bamberg Order #: [id number] DLP Dose#: PELVIC ORGANS: The uterus is absent. BONES: Normal. No bony lesion or fracture. LUNG BASES: Normal. No visible pulmonary or pleural disease. OTHER: Negative. CONCLUSION: 1. Moderate stool volume. 2. There is no evidence of acute abdominal or pelvic abnormality. Dictated by: Deepti Major MD on 10/14/2017 at 11:56 Approved by: Deepti Major MD on 10/14/2017 at 11:56 CBC Collected: 10/13/2017 Status: F Source: [place] [place] 9:35 PM [facility] REPOSITORY TYPE CODE TESTS RESULT OUT OF RANGE REFERENCE UNITS LAB CBC(LOINC) CBC Result Comment: CBC-COMPLETE BLOOD COUNT LAB WBC(LOINC) 4.5 - 10.8 x 10EE3/UL WBC 9.4 LAB RBC(LOINC) 4.10 - x 10EE6/UL 5.30 RBC 4.31 LAB HEMOGLOBIN(LOINC 12.0 - g/dl ) 16.0 Low HEMOGLOBIN 11.7 LAB HEMATOCRIT(LOINC 34.0 - % ) 46.0 HEMATOCRIT 35.3 LAB MCV(LOINC) 80 - 99 fl MCV 82 LAB MCH(LOINC) 27 - 33 pg MCH 27 LAB MCHC(LOINC) 32 - 36 X10 3 MCHC 33 LAB RDW/CV(LOINC) 12.0 - % 15.6 RDW/CV High 15.9 LAB PLATELET(LOINC) 150 - 450 x10EE3/UL PLATELET 295 LAB MPV(LOINC) 6.6 - 10.5 fl MPV 8.7 Result Comment: AUTOMATED DIFFERENTIAL LAB NEUT %(LOINC) 46.0 - 76.0 % NEUT % 66.4 LAB LYMPH %(LOINC) 20.0 - 45.0 % LYMPH % 24.5 LAB MONOS %(LOINC) 0.0 - 10.0 % MONOS % 7.2 LAB EO %(LOINC) 0.0 - 7.0 % EO % 1.5 LAB BASO %(LOINC) 0.0 - 2.0 % BASO % 0.4 LAB Lymph #(LOINC) 0.80 - 2.80 x10EE3/U L Lymph # 2.30 LAB Neut #(LOINC) 1.50 - 7.10 x10EE3/U L Neut # 6.20 LAB [place] #(LOINC) 0.20 - 1.00 x10EE3/U L [place] # 0.70 LAB EO #(LOINC) 0.00 - 0.50 x10EE3/U L EO # 0.10 LAB Baso #(LOINC) 0.00 - 0.10 x10EE3/U L Baso # 0.00 LAB MANUAL DIFF(LOINC) MANUAL DIFF N/A LAB MORPHOLOGY(LOINC ) MORPHOLOGY N/A Result Comment: {CD] Performed By: #### [id number] #### [facility],[address] [place] [address] CMP WITH EGFR Collected: 10/13/2017 Status: F Source: [facility] 9:35 PM [facility] REPOSITORY TYPE CODE TESTS RESULT OUT OF RANGE REFERENCE UNITS LAB CMP with eGFR(INC) CMP with eGFR Result Comment: COMPREHENSIVE METABOLIC PANEL LAB SODIUM(LOINC) 136 - 145 mmol/l SODIUM 136 LAB POTASSIUM(LOINC) 3.5 - 5.1 mmol/L POTASSIUM 4.1 LAB CHLORIDE(LOINC) 98 - 107 mmol/L CHLORIDE 102 LAB CO2(LOINC) 21.0 - mmol/L 31.0 CO2 25.4 LAB GLUCOSE(LOINC) 74 - 106 mg/dl GLUCOSE High 191 LAB BUN(LOINC) 6 - 20 mg/dl BUN 13 LAB CREATININE(LOINC) 0.6 - 1.2 mg/dl CREATININE 0.7 LAB AST/SGOT(LOINC) 13 - 39 U/L AST/SGOT Low 10 LAB ALK PHOS(LOINC) 38 - 126 U/L ALK PHOS 79 LAB CALCIUM(LOINC) 8.6 - mg/dl 10.2 CALCIUM 8.7 LAB TOTAL 6.4 - 8.3 g/dl PROTEIN(LOINC) TOTAL PROTEIN 6.9 LAB ALBUMIN(LOINC) 3.4 - 4.8 g/dL ALBUMIN 3.5 LAB GLOBULIN(LOINC) 1.5 - 3.8 G/DL GLOBULIN 3.4 LAB A/G RATIO(LOINC) 0.9 - 1.6 A/G RATIO 1.0 LAB TOTAL BILI(LOINC) 0.0 - 1.5 mg/dl TOTAL BILI 0.4 LAB B/C RATIO(LOINC) 0 - 30 ratio B/C RATIO 19 LAB ALT/SGPT(LOINC) 8 - 35 U/L ALT/SGPT 14 LAB ANION GAP(LOINC) 10 - 20 mmol/L ANION GAP 13 LAB AGE(LOINC) years AGE 36 LAB eGFR(LOINC) 60 - 999 ML/MINUTE eGFR >60 LAB eGFR(AA)(LOINC) 60 - 999 ML/MINUTE eGFR(AA) >60 Result Comment: ACCORDING TO THE NATIONAL KIDNEY DISEASE EDUCATION PROGRAM(NKDE), A NORMAL eGFR IS A VALUE GREATER THAN OR EQUAL TO 60 ML/MIN/1.73 SQ METERS. CHRONIC KIDNEY DISEASE: <60mL/MIN/1.73 SQ METERS KIDNEY FAILURE: <15mL/MIN/1.73 SQ METERS THIS TEST SHOULD ONLY BE USED FOR PATIENTS 18 YEARS OF AGE AND OLDER. Performed By: #### [id number] #### [place] [address] LIPASE Collected: 10/13/2017 Status: F Source: [facility] 9:35 PM [facility] REPOSITORY TYPE CODE TESTS RESULT OUT OF REFERENCE UNITS RANGE LAB LIPASE(LOIN 18.0 - 51.0 U/L C) LIPASE 32.0 Performed By: #### [id number] #### [place] [id number] ANES POST Observed: 10/08/2017 Status: COMPLETED Source: [place] 4:07 PM [facility] REPOSITORY HNO ID: [id number] Author: Wendi Hobbs Service: Anesthesiology Author Type: Anesthesiologist Type: Anesthesia PostOp Filed: 10/08/2017 4:07 PM Note Text: POST ANESTHESIA EVALUATION NOTE SERVICE DATE: 10/08/2017 SERVICE TIME: 14:30 : 1980 Vitals: 10/08/17 1330 10/08/17 1400 10/08/17 1445 10/08/17 1540 Temp: 36.1 ?C (97 ?F) 36.3 ?C (97.3 ?F) 37.3 ?C (99.1 ?F) 36.8 ?C (98.2 ?F) 10/08/17 1330 10/08/17 1400 10/08/17 1445 10/08/17 1540 BP: 133/67 130/62 118/58 128/65 10/08/17 1330 10/08/17 1400 10/08/17 1445 10/08/17 1540 Pulse: 68 75 72 74 10/08/17 1330 10/08/17 1400 10/08/17 1445 10/08/17 1540 Resp: 16 16 18 18 10/08/17 1330 10/08/17 1400 10/08/17 1445 10/08/17 1540 SpO2: 93% 97% 95% 94% Validated Vital Signs: Yes POST ANES STATUS: No apparent anesthetic complications. The patient is appropriately hydrated with stable respiratory and cardiovascular status. Patient has safe and adequate airway control. The patient has appropriate pain relief and no significant post operative nausea or vomiting. The patient has achieved baseline mental status. Further assessment by Anesthesia Service: None Other Remarks: SIGNATURE: Wendi Hobbs MD PATIENT NAME: Anne Marie Manning DATE: October 08, 2017 TIME: 4:07 PM PAGER/CONTACT #: [phone] PT ED Observed: 10/08/2017 Status: COMPLETED Source: [place] 3:44 PM [facility] REPOSITORY HNO ID: [id number] Author: Amairani (Rn) PHYLICIA Palmer Service: (none) Author Type: Registered Nurse Type: Patient Education Filed: 10/08/2017 3:44 PM Note Text: PATIENT EDUCATION TOPIC: PROCEDURE / SURGERY: Procedure/Surgery: PATIENT NAME: Anne Marie Manning PATIENT LOCATION: [place] [id number] READINESS TO LEARN COGNITIVE ABILITY: Alert and oriented MOTIVATION TO LEARN: Eager FAMILY SUPPORT: High - Very involved in pt care INSTRUCTION PROVIDED TO: Patient and family member PATIENT LEARNS BEST BY: Multiple methods FACTORS AFFECTING LEARNING: None PHYSICAL LIMITATIONS AFFECTING LEARNING: None LEARNING RESPONSE DIAGNOSIS: ADULT: Well Adult PATIENT/FAMILY RESPONSE: Verbalizes understanding of: MEDICAL REGIMEN-Importance of following prescribed medical regimen POST-OPERATIVE INSTRUCTIONS-Correct actions to take to reduce postoperative complications POST-PROCEDURE INSTRUCTIONS-Correct actions to take to reduce post procedure complications METHOD OF INSTRUCTION: Written instruction - handouts Verbal instruction FOLLOW-UP PLAN: Patient instructed to call with any further issues Follow-up with Primary Care Contact information given. INSTRUCTIONAL AIDS USED: NA SUPPLEMENTAL MATERIAL PROVIDED TO PATIENT: None REFERRAL (RECOMMENDATION): None Electronically Signed By: Amairani Palmer RN OPERATIVE NO Observed: 10/08/2017 Status: COMPLETED Source: [place] 12:15 PM [facility] REPOSITORY HNO ID: [id number] Author: Neha Rudd Service: Otolaryngology Author Type: Resident Type: Operative Report Filed: 10/08/2017 12:20 PM Note Text: C O N F I D E N T I A L I N F O R M A T I O N [facility]ARD [facility] DOCUMENT OPERATIVE REPORT LOG ID: [id number] Patient Name: Anne Marie Manning Patient Incision/Procedure Start Time: 11:13 AM Incision Close/Procedure End Time: 12:10 PM Date of Surgery: 10/08/2017 Surgeon(s)/Proceduralist(s) and Taping Machine Operator(s): Surgeon(s) and Role: * Catarino Wilkerson - Primary * Neha Rudd - Resident - Assisting Anesthesia: General Procedure(s): 1. Bilateral total ethmoidectomies, endoscopic 2. Bilateral sphenoid sinusotomies with removal of disease, endoscopic 3. Bilateral maxillary antrostomies, endoscopic 4. Bilateral inferior turbinate outfracture 5. Imaged guided surgical navigation - extradural Preoperative Diagnosis: 1. Chronic Rhinosinusitis of the right sphenoid sinus with inspissated mucus 2. Chronic Rhinosinusitis of the left sphenoid sinus with inspissated mucus 3. Inferior turbinate hypertrophy bilateral 4. Septal deviation, right Postoperative Diagnoses: Same as preoperative diagnosis Anesthesia: General Operative Indications: The patient is a 36 year old female with a history of facial pain and sinusitis with sphenoid sinus opacification bilaterally. She was treated with maximal medical therapy and a post-treatment CT scan showed persistent disease. Therefore, the risks, benefits, and alternatives of the above procedures were discussed and the patient agreed to proceed. Operative Findings: Inspissated mucus in the right and left sphenoid sinuses. Septal deviation to the right. Inferior turbinate hypertrophy. Procedure Narrative: The patient was brought into the operating room and laid in a supine position on the operating room table. A surgical huddle was conducted to verify the patient and the procedure to be performed. General anesthesia was induced and the patient's airway was secured with an ET tube. A time out was called. The nasal cavities were sprayed with 0.5% Afrin. The right and left nasal cavities were then injected with lidocaine 1% with 1:100,000 epinephrine. Next, image guidance was attached and registered. Once the image guidance was calibrated, the nasal cavities were examined with a 0 degree endoscope. The patient was noted to have enlarged inferior turbinates on the right and left and a broad septal deviation to the right. The inferior turbinates were outfractured laterally with a freer elevator. Using a 0 degree endoscope, attention was placed to the left nasal cavity. The decision was made to approach the sphenoid sinus in a transethmoid fashion. Using a [place] elevator, the the middle turbinate was medialized. The double ball probe was used to anteriorly deflect the uncinate, and an uncinectomy was performed with a retrograde approach. The probe was then used to cannulate the maxillary os and a large antrostomy in continuity with the natural os was created. The edges were refined with the microdebrider. Once a large maxillary antrostomy was created, attention was then turned to the ethmoid air cells. Using a microdebrieder, the ethmoid bulla was entered inferomedially. Further dissection was carried superolaterally freeing the rest of the bulla. The basal lamella was then entered inferomedialy and dissection was carried posteriorly until the superior turbinate was visualized. This provided a landmark for identification of the sphenoid ostia. Removing the inferior third of the superior turbinate, allowed for visualization of the sphenoid os, which was cannulated using a straight suction. The sphenoid ostia was widened using a curette and a sphenoid mushroom punch. Inspissated mucus was present which was suctioned out. The 30 degree scope was used to confirm patency of the surgical maxillary antrostomy, and this was refined as needed with a microdebrider. The middle turbinate was bolgerized to the septum. Using a 0 degree endoscope, attention was placed to the right nasal cavity. The decision was made to approach the sphenoid sinus in a transethmoid fashion. Using a [place] elevator, the the middle turbinate was medialized. The double ball probe was used to anteriorly deflect the uncinate, and an uncinectomy was performed with a retrograde approach. The probe was then used to cannulate the maxillary os and a large antrostomy in continuity with the natural os was created. The edges were refined with the microdebrider. Once a large maxillary antrostomy was created, attention was then turned to the ethmoid air cells. Using a microdebrieder, the ethmoid bulla was entered inferomedially. Further dissection was carried superolaterally freeing the rest of the bulla. The basal lamella was then entered inferomedialy and dissection was carried posteriorly until the superior turbinate was visualized. This provided a landmark for identification of the sphenoid ostia. Removing the inferior third of the superior turbinate, allowed for visualization of the sphenoid os, which was cannulated using a straight suction. The sphenoid ostia was widened using a curette and a sphenoid mushroom punch. Inspissated mucus was present which was suctioned out. The 30 degree scope was used to confirm patency of the surgical maxillary antrostomy, and this was refined as needed with a microdebrider. The middle turbinate was bolgerized to the septum. The nasopharynx was then suctioned and the nose was copiously irrigated with normal saline. Hemostasis was achieved as necessary. Nasopore packing was then deployed in the right and left middle meati to medialize the turbinates. This completed the surgical procedure. The patient was turned over to the anesthesia team for awakening and extubation. She was transferred to the PACU in stable condition. Specimens: Specimen ID Type Site Comments Sent To path 1 Tissue bilateral sinus content Pathology Routine Complications: None Attestation: Dr. Wilkerson was present and available for the entire surgical procedure, with Dr. Rudd assisting under direct supervision. Neha Rudd MD For the service of Dr. Catarino Wilkerson SURGICAL PATHOLOGY Observed: 10/08/2017 Status: F Source: [place] 12:00 AM [facility] REPOSITORY Specimen originated from [facility] Specimen #: [id number] Submitting Physician: CATARINO WILKERSON MD FINAL DIAGNOSIS A. Bilateral nasal sinus contents: - Chronic rhinosinusitis with unremarkable bone. MONICA/dss 10/09/2017 Mabel Flores MD (Electronic Signature) SPECIMEN SUBMITTED A: BILATERAL NASAL SINUS CONTENT CLINICAL DATA CHRONIC SINUSITIS GROSS DESCRIPTION A. The specimen is received fresh in two containers labeled with the patient's name and bilateral nasal sinus contents. The first container is a suction device with multiple unoriented irregular, red-pink, soft tissue fragments, aggregating to 4.3 x 3.8 x 0.6 cm. The second container is specimen container with multiple unoriented irregular, pink- white, rubbery tissue fragments measuring 1.8 x 1.0 x 0.4 cm. Scale Clerk sections are submitted in cassettes A1-A2. WENDY/glw 10/08/2017 Gross examination performed at [facility], [address] [place] [address] Date of Report: 10/09/2017 Date of Procedure: 10/08/2017 Date of Receipt: 10/08/2017 Submitted by: CATARINO WILKERSON MD Location: M22 Diagnostic interpretation performed at [facility], [address] [place] [address]. PROGRESS Observed: 09/24/2017 Status: COMPLETED Source: [place] 1:51 PM [facility] REPOSITORY HNO ID: [id number] Author: Sushant Lerma Service: (none) Author Type: Resident Type: Progress Notes Filed: 09/25/2017 10:01 AM Note Text: ANESTHESIA PRE-OPERATIVE ASSESSMENT (PACE) SERVICE DATE: 09/24/2017 SERVICE TIME: 1:20 pm ASSESSMENT AND PLAN: Anne Marie Manning is a 36 year old female scheduled for bilateral endoscopic sinus surgery per Informed Consent in MAIN on 10/08/2017. PMH: 1. Chronic sinusitis, reason for above procedure 2. HPL - atorvastatin 2. Asthma - symbicort (last used months ago), albuterol (uses 1x/day) 3. SIERRA - home CPAP 4. GERD - protonix 5. DM2 - on insulin, victoza and lyrica (for neuropathy) 6. Hypothyroid - synthroid 7. Antiphospholipid syndrome 8. Anxiety, depression - celexa, xanax, doxepin 9. Chronic back pain - follow with chronic pain, on tizanidine and percocet (1 tab QID PRN) [facility]: 4 FC: 1 METS: Climb a flight of stairs or walk up a hill (5.50 METs) Patient denies any chest pain or undue shortness of breath with the above physical activity. Patient WILL accept blood products. BLOOD WORK/PRODUCTS ORDERED: No blood products ordered HISTORY OF CHRONIC PAIN: Yes, chronic back pain PAIN MANAGEMENT OPTIONS: Routine/PRN IV and Final pain management plan will be discussed on the day of surgery. ANESTHETIC OPTIONS: General and Final anesthesia management options will be discussed on day of surgery. PRE-OP PLAN ORDERED: Diabetes orders Patient Instructed: ? No solid food or non-clear liquids after midnight. Clear liquids allowed until two hours before scheduled arrival. patient instructed to take the following meds: all meds as scheduled except DM2 medications - check BG in AM >200 take 1/2 dose of insulin, if <200 withhold AM dose. Vital Signs: BP 116/64 Pulse 89 Ht 170.2 cm (5' 7) Wt 129.7 kg (285 lb 15 oz) [facility] 10/11/2010 SpO2 96% BMI 44.78 kg/m2 BMI 44.78 kg/(m2) Vital signs completed by: IMPACT Weight acquired: per HANDP. Height acquired: per HANDP Airway Exam: MOUTH OPENING/TMJ: Full jaw ROM MICROGNATHIA/OVERBITE: No MALLAMPATI SCORE is CLASS I UPPER LIP BITE TEST: Class I - Lower incisors can bite the upper lip above the magali line DENTITION: Chipped, loose, and/or missing - Loose teeth on the L upper and lower side, loose R lower incisor THYROMENTAL DIST: WNL SHORT NECK: Yes - short/thick secondary to obesity. NECK CIRCUMFERENCE >40 cm: Yes NECK FLEX: Full ROM NECK EXTENSION: Parasthesia with ROM bilateral numbness on extension AIRWAY HISTORY: No abnormal airway history ARKS AIRWAY DETAIL: N/A DATA: EKG READING: Unconfirmed - NSR, 77 BPM OTHER TESTS: Echo: Date: 2013, Results: Negative, EF >60% Chest X-ray: 09/24/2017 - in process Lab Value Units Date High Low HB 10.9 g/dL 09/24/2017 15.5 11.5 HCT 35.7 % 09/24/2017 46.0 36.0 WBC 7.09 k/uL 09/24/2017 11.00 3.70 PLT 294 k/uL 09/24/2017 400 150 PTSEC 10.1 sec 09/24/2017 13.0 9.7 INR 1.0 no uni* 09/24/2017 1.3 0.9 APTT 24.9 sec 09/24/2017 32.4 23.0 TSH 0.280 uU/mL 07/03/2017 5.500 0.400 HBA1C: Hemoglobin A1C (%) Date Value 06/03/2015 5.0 02/26/2015 5.9 ) Patient accompanied by self Case Discussed with Dr. Timmons OPTIMIZATION STATUS: Patient optimization pending Labs IMPACT CXR IMPACT SIGNATURE: Sushant Lerma MD PATIENT NAME: Anne Marie Manning DATE: September 24, 2017 TIME: 1:52 PM PAGER/CONTACT #: Addendum 09-25-17 Brodie De Paz RN ?EXAMINATION: ?CHEST RADIOGRAPH (2 VIEW FRONTAL AND LATERAL) Clinical History: ?Chronic pansinusitis Chronic sphenoidal sinusitis M: ?XC2_3 Comparison: ?PA and lateral CXR dated 06/13/2017 RESULT: Lines, tubes, and devices: ?None. Lungs and pleura: ?The lungs appear clear of focal consolidation or mass. ?There is eventration of the anterior right hemidiaphragm. ?No pleural effusion or pneumothorax is identified. Cardiomediastinal silhouette: ?Normal cardiomediastinal silhouette. ?The heart size and pulmonary vascular pattern are within normal limits. Other: ?There are healed fractures of the anterior right fifth and sixth ribs. ?The vertebral body heights appear symmetric and well-maintained. CNOV Observed: 09/24/2017 Status: COMPLETED Source: CHUNKY 1:30 PM [facility] REPOSITORY Office Visit (PSSCMN) ANNE MARIE MANNING ([id number]) 1980 F Date Time Provider Department 09/24/17 1:30 PM [facility] During your visit today, we recorded the following information about you: Pulse Blood pressure Weight Height 89/minute 116/64 129.7 kg 1.702 m Sushant Lerma MD 09/24/2017 2:04 PM Addendum ANESTHESIA PRE-OPERATIVE ASSESSMENT (PACE) SERVICE DATE: 09/24/2017 SERVICE TIME: 1:20 pm ASSESSMENT ANDamp; PLAN: Anne Marie Manning is a 36 year old female scheduled for bilateral endoscopic sinus surgery per Informed Consent in [facility] on 10/08/2017. PMH: 1. Chronic sinusitis, reason for above procedure 2. HPL - atorvastatin 2. Asthma - symbicort (last used months ago), albuterol (uses 1x/day) 3. SIERRA - home CPAP 4. GERD - protonix 5. DM2 - on insulin, victoza and lyrica (for neuropathy) 6. Hypothyroid - synthroid 7. Antiphospholipid syndrome 8. Anxiety, depression - celexa, xanax, doxepin 9. Chronic back pain - follow with chronic pain, on tizanidine and percocet (1 tab QID PRN) [facility]: 4 FC: 1 METS: Climb a flight of stairs or walk up a hill (5.50 METs) Patient denies any chest pain or undue shortness of breath with the above physical activity. Patient WILL accept blood products. BLOOD WORK/PRODUCTS ORDERED: No blood products ordered HISTORY OF CHRONIC PAIN: Yes, chronic back pain PAIN MANAGEMENT OPTIONS: Routine/PRN IV and Final pain management plan will be discussed on the day of surgery. ANESTHETIC OPTIONS: General and Final anesthesia management options will be discussed on day of surgery. PRE-OP PLAN ORDERED: Diabetes orders Patient Instructed: ? No solid food or non-clear liquids after midnight. Clear liquids allowed until two hours before scheduled arrival. patient instructed to take the following meds: all meds as scheduled except DM2 medications - check BG in AM ANDgt;200 take 1/2 dose of insulin, if ANDlt;200 withhold AM dose. Vital Signs: BP 116/64 Pulse 89 Ht 170.2 cm (5' 7ANDquot;) Wt 129.7 kg (285 lb 15 oz) LMP 10/11/2010 SpO2 96% BMI 44.78 kg/m2 BMI 44.78 kg/(m2) Vital signs completed by: IMPACT Weight acquired: per HANDamp;P. Height acquired: per HANDamp;P Airway Exam: MOUTH OPENING/TMJ: Full jaw ROM MICROGNATHIA/OVERBITE: No MALLAMPATI SCORE is CLASS I UPPER LIP BITE TEST: Class I - Lower incisors can bite the upper lip above the magali line DENTITION: Chipped, loose, and/or missing - Loose teeth on the L upper and lower side, loose R lower incisor THYROMENTAL DIST: WNL SHORT NECK: Yes - short/thick secondary to obesity. NECK CIRCUMFERENCE ANDgt;40 cm: Yes NECK FLEX: Full ROM NECK EXTENSION: Parasthesia with ROM bilateral numbness on extension AIRWAY HISTORY: No abnormal airway history ARKS AIRWAY DETAIL: N/A DATA: EKG READING: Unconfirmed - NSR, 77 BPM OTHER TESTS: Echo: Date: 2013, Results: Negative, EF ANDgt;60% Chest X-ray: 09/24/2017 - in process Lab Value Units Date High Low HB 10.9 g/dL 09/24/2017 15.5 11.5 HCT 35.7 % 09/24/2017 46.0 36.0 WBC 7.09 k/uL 09/24/2017 11.00 3.70 PLT 294 k/uL 09/24/2017 400 150 PTSEC 10.1 sec 09/24/2017 13.0 9.7 INR 1.0 no uni* 09/24/2017 1.3 0.9 APTT 24.9 sec 09/24/2017 32.4 23.0 TSH 0.280 uU/mL 07/03/2017 5.500 0.400 HBA1C: Hemoglobin A1C (%) Date Value 06/03/2015 5.0 02/26/2015 5.9 ) Patient accompanied by self Case Discussed with Dr. Timmons OPTIMIZATION STATUS: Patient optimization pending Labs IMPACT CXR IMPACT SIGNATURE: Sushant Lerma MD PATIENT NAME: Anne Marie Manning DATE: September 24, 2017 TIME: 1:52 PM PAGER/CONTACT #: Addendum 09-25-17 Brodie De Paz RN ?EXAMINATION: ?CHEST RADIOGRAPH (2 VIEW FRONTAL ANDamp; LATERAL) Clinical History: ?Chronic pansinusitis Chronic sphenoidal sinusitis M: ?XC2_3 Comparison: ?PA and lateral CXR dated 06/13/2017 RESULT: Lines, tubes, and devices: ?None. Lungs and pleura: ?The lungs appear clear of focal consolidation or mass. ?There is eventration of the anterior right hemidiaphragm. ?No pleural effusion or pneumothorax is identified. Cardiomediastinal silhouette: ?Normal cardiomediastinal silhouette. ?The heart size and pulmonary vascular pattern are within normal limits. Other: ?There are healed fractures of the anterior right fifth and sixth ribs. ?The vertebral body heights appear symmetric and well-maintained. Referring Provider: CATARINO WILKERSON [[id number]] Allergies As of Date: 09/24/2017 Noted Allergy Reaction ULTRAM (TRAMADOL HCL) 11/20/2006 8 - GI Upset Date Reviewed: 09/24/2017 Reviewed by: Sushant Lerma - Fully Assessed Primary Visit Diagnosis:Pre-op evaluation [Z01.818] Prescriptions as of 09/24/2017 Sig: LIRAGLUTIDE 0.6 MG/0.1 ML (18* Inject 1.8 mg subcutaneously * SODIUM CHLORIDE 0.9 % IRRIGAT* Please use to rinse area twic* LEVOTHYROXINE 25 MCG TABLET Take 1 tablet by mouth once d* CITALOPRAM 40 MG TABLET Take 60 mg by mouth once te* DOXEPIN 50 MG CAPSULE Take 50 mg by mouth daily at * XANAX ORAL Take by mouth three times da* TIZANIDINE 4 MG CAPSULE Take 4 mg by mouth daily at b* ATORVASTATIN 40 MG TABLET Take 40 mg by mouth once te* NOVOLOG SUBCUTANEOUS Inject subcutaneously. Use wi* LANTUS SUBCUTANEOUS Inject 60 Units subcutaneousl* PROMETHAZINE 50 MG TABLET Take 50 mg by mouth as needed. FREESTYLE LITE METER KIT EASY TOUCH TWIST LANCETS 33 G* LYRICA 50 MG CAPSULE Take 50 mg by mouth three kenrick* BLOOD SUGAR DIAGNOSTIC STRIPS Test blood sugar(s) 3 times d* LANCETS Test blood sugar(s) three kenrick* PANTOPRAZOLE 40 MG TABLET,DEL* Take 1 tablet by mouth twice * MAGNESIUM HYDROXIDE 400 MG (1* Take 400 mg by mouth twice da* PRAMIPEXOLE 1 MG TABLET Take 1 tablet by mouth daily * OXYCODONE-ACETAMINOPHEN 5 MG-* Take 1 tablet by mouth every * LANCING DEVICE WITH LANCETS K* Lancet Device Dx: 250.02 Problem List As Of Date 09/24/2017 Noted Resolved Supervision of other high-risk [O09.8*INVALID FOR*11/18/2012 Supervision of other normal [Z34.80] INVALID FOR*11/18/2012 Sebaceous cyst [L72.3] INVALID FOR*11/18/2012 Type II or unspecified type diabetes mellitus w*INVALID FOR*02/06/2013 Tobacco use disorder [F17.200] INVALID FOR* H/O thyroid nodule [Z86.39] INVALID FOR* More... GERD (gastroesophageal reflux disease) [K21.9] INVALID FOR* Asthma [J45.909] INVALID FOR* Depressive disorder, not elsewhere classified [*INVALID FOR* Antiphospholipid antibody syndrome [D68.61] INVALID FOR* Genital warts [A63.0] INVALID FOR* Other and unspecified hyperlipidemia [E78.5] INVALID FOR* Neuropathy in diabetes [E11.40] INVALID FOR* More... Sleep apnea [G47.30] INVALID FOR* Restless leg syndrome [G25.81] INVALID FOR* DM type 2 with diabetic peripheral neuropathy [*INVALID FOR* Lateral epicondylitis of right elbow [M77.11] INVALID FOR* Degeneration of lumbar or lumbosacral intervert*INVALID FOR* Other pain disorders related to psychological f*INVALID FOR* GERD with esophagitis [K21.0] INVALID FOR* Intractable vomiting with nausea [R11.2] INVALID FOR* History of thyroid cyst [Z86.39] INVALID FOR* Mild intermittent asthma without complication [*INVALID FOR* Chronic sinusitis [J32.9] INVALID FOR* More... Encounter Status:Closed by SUSHANT LERMA on 09/24/17 Chart Close Cosign Accepted by: NANCIE TIMMONS MD[[id number]] Chart Close Cosign Accepted on: SunSep 24, 2017 4:12 PM CNOV Observed: 09/24/2017 Status: COMPLETED Source: [place]KY 12:45 PM [facility] REPOSITORY Office Visit (IMPAMN) ANNE MARIE MANNING ([id number]) 1980 F Date Time Provider Department 09/24/17 12:45 PM LESLYE CAUSEY During your visit today, we recorded the following information about you: Temperature Pulse Blood pressure Weight 97.2 degrees 89/minute 116/64 129.7 kg Height 1.702 m Radames Herrera LPN 09/24/2017 12:46 PM Signed Anne Marie Manning is a 36 year old female here today for visit in [facility] Referring Surgeon: Dr. Wilkerson Date of Surgery: 10/08/2017 Planned Surgery/Procedure: ENDOSCOPY NASAL/SINUS W/ SPHENOIDOTOMY AND REMOVAL SPHENOID Allergies have been reviewed and verified. They include the following: Ultram [Tramadol Hcl] Social History Substance Use Topics - Smoking status: Former Smoker Packs/day: 1.00 Years: 10.00 Types: Cigarettes Quit date: 01/25/2013 - Smokeless tobacco: Never Used - Alcohol use Yes Comment: rarely Medications reviewed and updated: Yes Radames Causey MD 09/24/2017 12:46 PM Signed HISTORY AND PHYSICAL EXAMINATION (IMPACT) SERVICE DATE: 09/24/2017 SERVICE TIME: 12:30 PM PRIMARY CARE PHYSICIAN: Mary Lopez DO CHIEF COMPLAINT/HISTORY OF PRESENT ILLNESS: Ms. Manning is a 36 year old female referred to me for preoperative evaluation. My final recommendations will be communicated back to the requesting physician/surgeon by the way of the shared medical record. Referring Surgeon: Dr. Wilkerson Date of Surgery: 10/08/2017 Planned Surgery/Procedure: ENDOSCOPY NASAL/SINUS W/ SPHENOIDOTOMY AND REMOVAL SPHENOID SINUS TISSUE Indication for Planned Surgery / Procedure: Chronic sinusitis Refer to Assessment section for details of any comorbidities. Patient is Able to Perform the Following Physical Activity: Climb a flight of stairs or walk up a hill (5.50 METs) Patient denies any chest pain or undue shortness of breath with the above physical activity. Patient's functional class is I based on self-reported physical activity. Significant Anesthesia Considerations: None. 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 - Hernia, diaphragmatic Hiatal hernia - SIERRA (obstructive sleep apnea) - PMH - PAST MEDICAL HISTORY OF THYROID NODULE - Sepsis ([facility]) 2012 - Sinusitis - Transient hypertension of , antepartum - Unspecified asthma(493.90) Dx as a teenager PAST SURGICAL HISTORY Procedure Laterality Date - EGD - EGD W/O OR W/BRUSH/WASH 07/10/2013 EGD - IMPLANON INSERTION 09/22/10 and removed - PAST SURGICAL HISTORY OF 2012 I and D of neck abscess - PAST SURGICAL HISTORY OF tubal ligation - PAST SURGICAL HISTORY OF 2011 hysteroscopy with ablation - PAST SURGICAL HISTORY OF 2013 Lymph node removals - REMOVAL GALLBLADDER 2012 - TOTAL ABDOM HYSTERECTOMY OVARIES IN PLACE. 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 Disp: Rfl: sodium chloride (STERILE SALINE) 0.9 % IRRIGATION Please use to rinse area twice daily. Please dispense seven 1 liter bottles Disp: 7000 mL Rfl: 3 levothyroxine (SYNTHROID) 25 mcg tablet Take 1 tablet by mouth once daily. Disp: 30 tablet Rfl: 3 citalopram (CELEXA) 40 mg tablet Take 60 mg by mouth once daily. Disp: Rfl: doxepin capsule 50 mg Take 50 mg by mouth daily at bedtime. Disp: Rfl: ALPRAZOLAM (XANAX ORAL) Take by mouth three times daily as needed. Disp: Rfl: tiZANidine HCl 4 mg capsule Take 4 mg by mouth daily at bedtime. Disp: Rfl: atorvastatin (LIPITOR) 40 mg tablet Take 40 mg by mouth once daily. Disp: Rfl: INSULIN ASPART (NOVOLOG SUBCUTANEOUS) Inject subcutaneously. Use with Sliding Scale Disp: Rfl: INSULIN GLARGINE,HUM.REC.ANLOG (LANTUS SUBCUTANEOUS) Inject 60 Units subcutaneously twice daily. Disp: Rfl: promethazine (PHENERGAN) 50 mg tab(s) Take 50 mg by mouth as needed. Disp: Rfl: FREESTYLE LITE METER monitoring kit Disp: Rfl: EASY TOUCH TWIST LANCETS 33 gauge misc Disp: Rfl: LYRICA 50 mg capsule Take 50 mg by mouth three times daily. Disp: Rfl: blood sugar diagnostic (BLOOD GLUCOSE TEST) test strip Test blood sugar(s) 3 times daily. Dx: 250.02. Insulin: No Disp: 50 Strip Rfl: 11 Lancets lancets Test blood sugar(s) three times daily. Dx: 250.02. Insulin: Yes Disp: 150 Each Rfl: [address] (PROTONIX) 40 mg tablet Take 1 tablet by mouth twice daily. Take on empty stomach, 1/2 hr before meal. Disp: 60 tablet Rfl: 5 Magnesium Hydroxide 400 mg (170 mg) chew Take 400 mg by mouth twice daily. Disp: 60 tablet Rfl: 5 pramipexole (MIRAPEX) 1 mg tablet Take 1 tablet by mouth daily at bedtime. Disp: 30 tablet Rfl: 11 oxyCODONE-acetaminophen (PERCOCET) 5-325 mg tablet Take 1 tablet by mouth every 8 hours as needed. Disp: Rfl: Lancing Device with Lancets Kit Lancet Device Dx: 250.02 Disp: 1 Kit Rfl: 0 No current facility-administered medications for this visit. ALLERGIES Allergen Reactions - Ultram [Tramadol Hc* GI Upset REVIEW OF SYSTEMS General: No weight loss, malaise or fevers. Neuro: No history of TIA's, stroke, BOXING MACHINE OPERATOR tumor, impaired sensorium, hemiplegia, paraplegia or quadriplegia. No neurological symptoms or problems. Respiratory: No history of current cough or dyspnea, or pneumonia in the past 6 weeks. No history of respiratory/pulmonary symptoms or problems. Cardiovascular: No history of HTN requiring medication, no history of angina, CHF, OK, cardiac surgery or stents. Denies rest pain, gangrene or revascularization/amputation for PVD. No history of cardiovascular symptoms or problems. GI: No history of GI symptoms or problems. No history of esophageal varices, recent ascites, or ETOH greater than 2 drinks per day. : No history of UTI in past 6 weeks. No history of renal failure. Not currently on or requiring dialysis. No history of symptoms or problems. PRODUCT DEMONSTRATOR: Not reviewed Endocrine: Diabetes Mellitus on insulin Hematology: No history of bleeding or clotting disorder. No history of hematological symptoms or problems. Oncology: No history of CA metastasis, chemo within 30 days, or radiotherapy within 90 days. No history of oncological symptoms or problems. Psych: No history of psychiatric symptoms or problems. Skin: Negative for lesions, rash, and itching. PHYSICAL EXAM VITALS: BP 116/64 Pulse 89 Temp (Src) 97.2 (Oral) Ht 5' 7ANDquot; (1.70m) Wt 286 lb (129.7kg) SpO2 96% LMP 10/11/2010 BMI 44.78 kg/(m2). General: Alert and oriented Skin: Normal color, no rash, no lesions. HEENT: EOM, pupils equal, round and reactive. Cardiovascular: Normal S1 ANDamp; S2, no rubs, murmurs or gallops. No JVD. Pulse regular. Lungs: Normal breath sounds, no wheezes or crackles. Abdomen: Soft, non-tender, no rigidity. Extremities: No deformity, no edema or tenderness, no joint swelling or clubbing. Neurological: Normal cognition and motor skills. Pulses: Carotid and radial pulses normal +2. ASSESSMENT Ms. Manning is a 36 year old female referred to me for preoperative evaluation. Patient has the following medical comorbidities which might affect the perioperative course: - Anti-phospholipid syndrome? 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 Seen by hematology in Jun 2017 and plan to repeat these tests in the future - IDDM, dx 15 years ago, been on insulin x 8 years, last A1C 6.6 - DVT in Sep-Oct 2016, taken off of Xarelto 2 months ago - SIERRA on CPAP Patient's RCRI (Revised Cardiac Risk Index: CAD/CHF/Stroke or TIA/SCrANDgt;2/DM on Insulin/High Risk Surgery) score is 1 and is at intermediate risk for major adverse cardiac events in the perioperative period. Diagnostic tests reviewed for today's visit: Most recent EKG: normal sinus rhythm, normal axis, normal intervals, reviewed by myself. PLAN/RECOMMENDATIONS CARDIAC: Patient is at optimal cardiac condition for scheduled surgery / procedure. PULMONARY: Patient is at optimal Pulmonary status for scheduled surgery / procedure. Suggest the following in the post-operative period: Aggressive bronchopulmonary hygiene, CPAP/BiPAP at home setting (advised patient to bring their CPAP/BiPAP machine/mask), Minimize sedation/opioids as patient has SIERRA and Early ambulation ENDOCRINE: DIABETES: - Initiate [facility] Guidelines for perioperative diabetes management. Check finger stick glucose on the morning of surgery. - Patient has been instructed on Preoperative DM medication management. Patient is optimally prepared for surgery pending labs Patient Instructions: As per patient instructions section. I have discussed the above recommendations with the patient in detail, in janae and lay terms, and provided a written summary of instructions as needed. We have discussed that no surgery is without risk, but that the goal of preoperative assessment is to optimize that risk, and that was clearly understood by the patient. I have given ample opportunity for the patient to ask questions, and answered all questions to their stated satisfaction. SIGNATURE: Leslye Causey MD PATIENT NAME: Anne Marie Manning DATE: September 24, 2017 TIME: 12:30 PM Leslye Causey MD 09/24/2017 12:46 PM Addendum [facility] Patient Instructions for Surgery FOOD INSTRUCTIONS: NO solid food or non-clear liquids for 8 hours prior to the arrival time for your surgery. Unless you are instructed otherwise, you are allowed to drink up to 12 ounces of clear liquids (e.g. water, black tea/coffee, fruit juice without pulp, Cheri Clarisa, etc.) up until 2 hours prior to the arrival time for surgery. MEDICATION INSTRUCTIONS: Prior to Surgery: Do not take the following medications for 7 days prior to surgery: - any NSAID's (e.g. Motrin, Aleve, Arthrotec, Naproxen,etc) - any herbal preparations - Aspirin or aspirin containing products - Plavix Do not take any Vitamin E / multivitamins for 10-14 days before surgery You are allowed to take Tylenol if needed until the day of surgery. MEDICATION INSTRUCTIONS: Day/Morning of Surgery: Do not take any medications by mouth Take half dose of your lantus insulin that is: 30 units Use your inhalers as directed and as usual If you have any questions or concerns regarding today's visit please do not hesitate to contact the [facility] at [phone] or [phone], ext [phone]. Signature: Leslye Causey MD Date: September 24, 2017 Referring Provider: CATARINO WILKERSON [[id number]] Allergies As of Date: 09/24/2017 Noted Allergy Reaction ULTRAM (TRAMADOL HCL) 11/20/2006 8 - GI Upset Date Reviewed: 09/24/2017 Reviewed by: Radames Herrera LPN - Fully Assessed Primary Visit Diagnosis:Pre-operative examination [Z01.818] Other Visit Diagnoses:Chronic sinusitis, unspecified location [J32.9] History of thyroid cyst [Z86.39] DM type 2 with diabetic peripheral neuropathy (HCC) [E11.42] Prescriptions as of 09/24/2017 Sig: LIRAGLUTIDE 0.6 MG/0.1 ML (18* Inject 1.8 mg subcutaneously * SODIUM CHLORIDE 0.9 % IRRIGAT* Please use to rinse area twic* LEVOTHYROXINE 25 MCG TABLET Take 1 tablet by mouth once d* CITALOPRAM 40 MG TABLET Take 60 mg by mouth once te* DOXEPIN 50 MG CAPSULE Take 50 mg by mouth daily at * XANAX ORAL Take by mouth three times da* TIZANIDINE 4 MG CAPSULE Take 4 mg by mouth daily at b* ATORVASTATIN 40 MG TABLET Take 40 mg by mouth once te* NOVOLOG SUBCUTANEOUS Inject subcutaneously. Use wi* LANTUS SUBCUTANEOUS Inject 60 Units subcutaneousl* PROMETHAZINE 50 MG TABLET Take 50 mg by mouth as needed. FREESTYLE LITE METER KIT EASY TOUCH TWIST LANCETS 33 G* LYRICA 50 MG CAPSULE Take 50 mg by mouth three kenrick* BLOOD SUGAR DIAGNOSTIC STRIPS Test blood sugar(s) 3 times d* LANCETS Test blood sugar(s) three kenrick* PANTOPRAZOLE 40 MG TABLET,DEL* Take 1 tablet by mouth twice * MAGNESIUM HYDROXIDE 400 MG (1* Take 400 mg by mouth twice da* PRAMIPEXOLE 1 MG TABLET Take 1 tablet by mouth daily * OXYCODONE-ACETAMINOPHEN 5 MG-* Take 1 tablet by mouth every * LANCING DEVICE WITH LANCETS K* Lancet Device Dx: 250.02 Medication notes this encounter XANAX ORAL >> Radames Herrera [facility] 09/24/2017 12:26 PM >> RADAMES CASAS SunSep 24, 2017 12:26 PM NOVOLOG SUBCUTANEOUS >> Radamesbrittni Herrera [facility] 09/24/2017 12:26 PM >> RADAMES CASAS SunSep 24, 2017 12:26 PM LANTUS SUBCUTANEOUS >> Radames Herrera [employer] SAL[employer] TECHNICAL ENGINE[employer] 09/24/2017 12:26 PM >> RADAMES CASAS SunSep 24, 2017 12:26 PM LYRICA 50 MG CAPSULE >> Radames Herrera [facility] 09/24/2017 12:27 PM >> RADAMES CASAS SunSep 24, 2017 12:27 PM Problem List As Of Date 09/24/2017 Noted Resolved Supervision of other high-risk [O09.8*INVALID FOR*11/18/2012 Supervision of other normal [Z34.80] INVALID FOR*11/18/2012 Sebaceous cyst [L72.3] INVALID FOR*11/18/2012 Type II or unspecified type diabetes mellitus w*INVALID FOR*02/06/2013 Tobacco use disorder [F17.200] INVALID FOR* H/O thyroid nodule [Z86.39] INVALID FOR* More... GERD (gastroesophageal reflux disease) [K21.9] INVALID FOR* Asthma [J45.909] INVALID FOR* Depressive disorder, not elsewhere classified [*INVALID FOR* Antiphospholipid antibody syndrome [D68.61] INVALID FOR* Genital warts [A63.0] INVALID FOR* Other and unspecified hyperlipidemia [E78.5] INVALID FOR* Neuropathy in diabetes [E11.40] INVALID FOR* More... Sleep apnea [G47.30] INVALID FOR* Restless leg syndrome [G25.81] INVALID FOR* DM type 2 with diabetic peripheral neuropathy [*INVALID FOR* Lateral epicondylitis of right elbow [M77.11] INVALID FOR* Degeneration of lumbar or lumbosacral intervert*INVALID FOR* Other pain disorders related to psychological f*INVALID FOR* GERD with esophagitis [K21.0] INVALID FOR* Intractable vomiting with nausea [R11.2] INVALID FOR* History of thyroid cyst [Z86.39] INVALID FOR* Mild intermittent asthma without complication [*INVALID FOR* Chronic sinusitis [J32.9] INVALID FOR* More... Other instructions from your clinician: [facility] Patient Instructions for Surgery FOOD INSTRUCTIONS: NO solid food or non-clear liquids for 8 hours prior to the arrival time for your surgery. Unless you are instructed otherwise, you are allowed to drink up to 12 ounces of clear liquids (e.g. water, black tea/coffee, fruit juice without pulp, Cheri Clarisa, etc.) up until 2 hours prior to the arrival time for surgery. MEDICATION INSTRUCTIONS: Prior to Surgery: Do not take the following medications for 7 days prior to surgery: - any NSAID's (e.g. Motrin, Aleve, Arthrotec, Naproxen,etc) - any herbal preparations - Aspirin or aspirin containing products - Plavix Do not take any Vitamin E / multivitamins for 10-14 days before surgery You are allowed to take Tylenol if needed until the day of surgery. MEDICATION INSTRUCTIONS: Day/Morning of Surgery: Do not take any medications by mouth Take half dose of your lantus insulin that is: 30 units Use your inhalers as directed and as usual If you have any questions or concerns regarding today's visit please do not hesitate to contact the [facility] at [phone] or [phone], ext [phone]. Signature: Leslye Causey MD Date: September 24, 2017 Medications Discontinued During This Encounter BASAGLJUSTIN SENIORIKPEN 100 unit/mL (3 mL) * 5 07/07/2017 09/24/2017 Class: Historical Med Sig: inject SUBCUTANEOUSLY 76 UNITS TWICE DAILY OR DIRECTED Disc: Discontinued by Patient baclofen (LIORESAL) 10 mg tablet 30 t* 0 04/25/2016 09/24/2017 Route: ORAL Sig: Take 1 tablet by mouth daily at bedtime. Disc: Discontinued by Patient mupirocin (BACTROBAN) 2 % ointment 7 Tu* 3 07/11/2017 09/24/2017 Sig: Please apply area twice daily. Disc: Discontinued by Patient predniSONE (DELTASONE) 10 mg tablet 09/24/2017 Class: Historical Med Route: ORAL Sig: Take 10 mg by mouth as directed. Disc: Discontinued by Patient rivaroxaban (XARELTO) 20 mg tablet 09/24/2017 Class: Historical Med Route: ORAL Sig: Take 20 mg by mouth daily with dinner. Disc: Discontinued by Patient zolpidem (AMBIEN) 10 mg tab 09/24/2017 Class: Historical Med Route: ORAL Sig: Take by mouth daily at bedtime. Disc: Discontinued by Patient Encounter Status:Closed by PADILLA ZARAGOZA MD on 09/24/17 HISTORY PHYSICAL Observed: 09/24/2017 Status: COMPLETED Source: [place] 12:30 PM [facility] [place] REPOSITORY O ID: [id number] Author: Leslye Causey Service: (none) Author Type: Physician Type: HANDP Filed: 09/24/2017 12:46 PM Note Text: HISTORY AND PHYSICAL EXAMINATION (IMPACT) SERVICE DATE: 09/24/2017 SERVICE TIME: 12:30 PM PRIMARY CARE PHYSICIAN: Mary Lopez DO CHIEF COMPLAINT/HISTORY OF PRESENT ILLNESS: Ms. Manning is a 36 year old female referred to me for preoperative evaluation. My final recommendations will be communicated back to the requesting physician/surgeon by the way of the shared medical record. Referring Surgeon: Dr. Wilkerson Date of Surgery: 10/08/2017 Planned Surgery/Procedure: ENDOSCOPY NASAL/SINUS W/ SPHENOIDOTOMY AND REMOVAL SPHENOID SINUS TISSUE Indication for Planned Surgery / Procedure: Chronic sinusitis Refer to Assessment section for details of any comorbidities. Patient is Able to Perform the Following Physical Activity: Climb a flight of stairs or walk up a hill (5.50 METs) Patient denies any chest pain or undue shortness of breath with the above physical activity. Patient's functional class is I based on self-reported physical activity. Significant Anesthesia Considerations: None. 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 - Hernia, diaphragmatic Hiatal hernia - SIERRA (obstructive sleep apnea) - PMH - PAST MEDICAL HISTORY OF THYROID NODULE - Sepsis (HCC) 2012 - Sinusitis - Transient hypertension of , antepartum - Unspecified asthma(493.90) Dx as a teenager PAST SURGICAL HISTORY Procedure Laterality Date - EGD - EGD W/O OR W/BRUSH/WASH 07/10/2013 EGD - IMPLANON INSERTION 09/22/10 and removed - PAST SURGICAL HISTORY OF 2012 I and D of neck abscess - PAST SURGICAL HISTORY OF tubal ligation - PAST SURGICAL HISTORY OF 2011 hysteroscopy with ablation - PAST SURGICAL HISTORY OF 2013 Lymph node removals - REMOVAL GALLBLADDER 2012 - TOTAL ABDOM HYSTERECTOMY OVARIES IN PLACE. 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 Disp: Rfl: sodium chloride (STERILE SALINE) 0.9 % IRRIGATION Please use to rinse area twice daily. Please dispense seven 1 liter bottles Disp: 7000 mL Rfl: 3 levothyroxine (SYNTHROID) 25 mcg tablet Take 1 tablet by mouth once daily. Disp: 30 tablet Rfl: 3 citalopram (CELEXA) 40 mg tablet Take 60 mg by mouth once daily. Disp: Rfl: doxepin capsule 50 mg Take 50 mg by mouth daily at bedtime. Disp: Rfl: ALPRAZOLAM (XANAX ORAL) Take by mouth three times daily as needed. Disp: Rfl: tiZANidine HCl 4 mg capsule Take 4 mg by mouth daily at bedtime. Disp: Rfl: atorvastatin (LIPITOR) 40 mg tablet Take 40 mg by mouth once daily. Disp: Rfl: INSULIN ASPART (NOVOLOG SUBCUTANEOUS) Inject subcutaneously. Use with Sliding Scale Disp: Rfl: INSULIN GLARGINE,HUM.REC.ANLOG (LANTUS SUBCUTANEOUS) Inject 60 Units subcutaneously twice daily. Disp: Rfl: promethazine (PHENERGAN) 50 mg tab(s) Take 50 mg by mouth as needed. Disp: Rfl: FREESTYLE LITE METER monitoring kit Disp: Rfl: EASY TOUCH TWIST LANCETS 33 gauge misc Disp: Rfl: LYRICA 50 mg capsule Take 50 mg by mouth three times daily. Disp: Rfl: blood sugar diagnostic (BLOOD GLUCOSE TEST) test strip Test blood sugar(s) 3 times daily. Dx: 250.02. Insulin: No Disp: 50 Strip Rfl: 11 Lancets lancets Test blood sugar(s) three times daily. Dx: 250.02. Insulin: Yes Disp: 150 Each Rfl: [address] (PROTONIX) 40 mg tablet Take 1 tablet by mouth twice daily. Take on empty stomach, 1/2 hr before meal. Disp: 60 tablet Rfl: 5 Magnesium Hydroxide 400 mg (170 mg) chew Take 400 mg by mouth twice daily. Disp: 60 tablet Rfl: 5 pramipexole (MIRAPEX) 1 mg tablet Take 1 tablet by mouth daily at bedtime. Disp: 30 tablet Rfl: 11 oxyCODONE-acetaminophen (PERCOCET) 5-325 mg tablet Take 1 tablet by mouth every 8 hours as needed. Disp: Rfl: Lancing Device with Lancets Kit Lancet Device Dx: 250.02 Disp: 1 Kit Rfl: 0 No current facility-administered medications for this visit. ALLERGIES Allergen Reactions - Ultram [Tramadol Hc* GI Upset REVIEW OF SYSTEMS General: No weight loss, malaise or fevers. Neuro: No history of TIA's, stroke, BOXING MACHINE OPERATOR tumor, impaired sensorium, hemiplegia, paraplegia or quadriplegia. No neurological symptoms or problems. Respiratory: No history of current cough or dyspnea, or pneumonia in the past 6 weeks. No history of respiratory/pulmonary symptoms or problems. Cardiovascular: No history of HTN requiring medication, no history of angina, CHF, OK, cardiac surgery or stents. Denies rest pain, gangrene or revascularization/amputation for PVD. No history of cardiovascular symptoms or problems. GI: No history of GI symptoms or problems. No history of esophageal varices, recent ascites, or ETOH greater than 2 drinks per day. : No history of UTI in past 6 weeks. No history of renal failure. Not currently on or requiring dialysis. No history of symptoms or problems. PRODUCT DEMONSTRATOR: Not reviewed Endocrine: Diabetes Mellitus on insulin Hematology: No history of bleeding or clotting disorder. No history of hematological symptoms or problems. Oncology: No history of CA metastasis, chemo within 30 days, or radiotherapy within 90 days. No history of oncological symptoms or problems. Psych: No history of psychiatric symptoms or problems. Skin: Negative for lesions, rash, and itching. PHYSICAL EXAM VITALS: BP 116/64 Pulse 89 Temp (Src) 97.2 (Oral) Ht 5' 7 (1.70m) Wt 286 lb (129.7kg) SpO2 96% LMP 10/11/2010 BMI 44.78 kg/(m2). General: Alert and oriented Skin: Normal color, no rash, no lesions. HEENT: EOM, pupils equal, round and reactive. Cardiovascular: Normal S1 AND S2, no rubs, murmurs or gallops. No JVD. Pulse regular. Lungs: Normal breath sounds, no wheezes or crackles. Abdomen: Soft, non-tender, no rigidity. Extremities: No deformity, no edema or tenderness, no joint swelling or clubbing. Neurological: Normal cognition and motor skills. Pulses: Carotid and radial pulses normal +2. ASSESSMENT Ms. Manning is a 36 year old female referred to me for preoperative evaluation. Patient has the following medical comorbidities which might affect the perioperative course: - Anti-phospholipid syndrome? 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 Seen by hematology in Jun 2017 and plan to repeat these tests in the future - IDDM, dx 15 years ago, been on insulin x 8 years, last A1C 6.6 - DVT in Sep-Oct 2016, taken off of Xarelto 2 months ago - SIERRA on CPAP Patient's RCRI (Revised Cardiac Risk Index: CAD/CHF/Stroke or TIA/SCr>2/DM on Insulin/High Risk Surgery) score is 1 and is at intermediate risk for major adverse cardiac events in the perioperative period. Diagnostic tests reviewed for today's visit: Most recent EKG: normal sinus rhythm, normal axis, normal intervals, reviewed by myself. PLAN/RECOMMENDATIONS CARDIAC: Patient is at optimal cardiac condition for scheduled surgery / procedure. PULMONARY: Patient is at optimal Pulmonary status for scheduled surgery / procedure. Suggest the following in the post-operative period: Aggressive bronchopulmonary hygiene, CPAP/BiPAP at home setting (advised patient to bring their CPAP/BiPAP machine/mask), Minimize sedation/opioids as patient has SIERRA and Early ambulation ENDOCRINE: DIABETES: - Initiate [facility] Guidelines for perioperative diabetes management. Check finger stick glucose on the morning of surgery. - Patient has been instructed on Preoperative DM medication management. Patient is optimally prepared for surgery pending labs Patient Instructions: As per patient instructions section. I have discussed the above recommendations with the patient in detail, in janae and lay terms, and provided a written summary of instructions as needed. We have discussed that no surgery is without risk, but that the goal of preoperative assessment is to optimize that risk, and that was clearly understood by the patient. I have given ample opportunity for the patient to ask questions, and answered all questions to their stated satisfaction. SIGNATURE: Leslye Causey MD PATIENT NAME: Anne Marie Manning DATE: September 24, 2017 TIME: 12:30 PM PROGRESS Observed: 09/24/2017 Status: COMPLETED Source: [place] 12:04 PM [facility] RE[facility] HNO ID: [id number] Author: Radames Herrera LPN Service: (none) Author Type: (none) Type: Progress Notes Filed: 09/24/2017 12:46 PM Note Text: Anne Marie Manning is a 36 year old female here today for visit in [place] Referring Surgeon: Dr. Wilkerson Date of Surgery: 10/08/2017 Planned Surgery/Procedure: ENDOSCOPY NASAL/SINUS W/ SPHENOIDOTOMY AND REMOVAL SPHENOID Allergies have been reviewed and verified. They include the following: Ultram [Tramadol Hcl] Social History Substance Use Topics - Smoking status: Former Smoker Packs/day: 1.00 Years: 10.00 Types: Cigarettes Quit date: 01/25/2013 - Smokeless tobacco: Never Used - Alcohol use Yes Comment: rarely Medications reviewed and updated: [facility] Observed: 09/24/2017 Status: COMPLETED Source: [place] 11:51 AM [facility] REPOSITORY HNO ID: [id number] Author: Maggy (Rt) Chemo Service: Radiology Author Type: Behavioral Health Consultant Type: Progress Notes Filed: 09/24/2017 11:51 AM Note Text: Radiology Service Progress Note PATIENT NAME: Anne Marie Manning DATE OF SERVICE: September 24, 2017 TIME: 11:51 AM PATIENT IDENTITY VERIFICATION COMPLETED USING TWO (2) METHODS: Patient confirmed name verbally and Date of . PATIENT GENDER DATA: Female. status: : No status: NO. PATIENT RELEVANT IMPLANT DATA REVIEWED: Not Applicable RADIOLOGY DEPARTMENT: General X-ray: Exam(s) Completed: Chest X-Ray PERIPHERAL IV DATA: Not applicable SIGNED BY: RT Jose September 24, 2017 11:51 AM XR CHEST 2V FRONTAL/LAT Observed: 09/24/2017 Status: F Source: [place] 11:41 AM [facility] REPOSITORY * * *Final Report* * * DATE OF EXAM: Sep 24 2017 11:41AM AOX [id number] - XR CHEST 2V FRONTAL/LAT / PROCEDURE REASON: multiple diagnoses * * * * Physician Interpretation * * * * EXAMINATION: CHEST RADIOGRAPH (2 VIEW FRONTAL and LATERAL) Clinical History: Chronic pansinusitis Chronic sphenoidal sinusitis M: XC2_3 Comparison: PA and lateral CXR dated 06/13/2017 RESULT: Lines, tubes, and devices: None. Lungs and pleura: The lungs appear clear of focal consolidation or mass. There is eventration of the anterior right hemidiaphragm. No pleural effusion or pneumothorax is identified. Cardiomediastinal silhouette: Normal cardiomediastinal silhouette. The heart size and pulmonary vascular pattern are within normal limits. Other: There are healed fractures of the anterior right fifth and sixth ribs. The vertebral body heights appear symmetric and well-maintained. IMPRESSION: No acute radiographic abnormality. Little interval change since the exam dated 06/13/2017. Deck Worker: PSCB Transcribe Date/Time: Sep 24 2017 2:45P Dictated by : TRACI MORALES MD This examination was interpreted and the report reviewed and electronically signed by: TRACI MORALES MD on Sep 24 2017 2:47PM EST [id number] Collected: 09/24/2017 Status: F Source: [place] 11:08 AM [facility] REPOSITORY TYPE CODE TESTS RESULT OUT OF RANGE REFERENCE UNITS LAB PSEC 9.7-13.0 sec PT Sec 10.1 LAB INR 0.9-1.3 PT INR 1.0 Result Comment: Vitamin K Antagonist (VKA) Therapeutic Range: INR 2 to 3 (Target INR of 2.5) Note: For patients treated with VKA drugs, such as warfarin, the [place] [employer] 2012 Guideline recommends a therapeutic INR range of 2 to 3 (target INR of 2.5). This recommendation includes high-risk patients with antiphospholipid syndrome with previous arterial or venous thromboembolism, current-generation mechanical or bioprosthetic aortic heart valve replacement. Note: Patients with mechanical aortic valve replacement and additional risk factors for thromboembolic events (atrial fibrillation, previous thromboembolism, LV dysfunction, hypercoagulable conditions) or an older generation mechanical AVR (i.e., ball in-Cage) or any mechanical MVR should have a INR therapeutic range of 2.5 to 3.5 (target INR of 3). Jordan GH, et al. Chest 2012, 141:7S-47S Flynn RA, et al. [facility] 2017, 70: 252-289 Performed By: #### PT, PTT, CBC, BMP #### [facility] [address] [place], [place] [address] APTT Collected: 09/24/2017 Status: F Source: [place] 11:08 AM [facility] REPOSITORY TYPE CODE TESTS RESULT OUT OF RANGE REFERENCE UNITS LAB APTT 23.0-32.4 sec APTT 24.9 Result Comment: Unfractionated Heparin Therapeutic Ranges: Standard Heparin Nomogram: 53 to 78 seconds (anti-Xa level of 0.3 to 0.7 U/ml) Low Dose/ACS Nomogram: 49 to 67 seconds (anti-Xa level of 0.2 to 0.5 U/ml) Stroke Treatment Nomogram: 49 to 67 seconds (anti-Xa level of 0.2 to 0.5 U/ml) Note: The APTT therapeutic range has been determined for the current lot of laboratory APTT reagent in use throughout the [facility]. Performed By: #### PT, PTT, CBC, BMP #### [facility] [address] [place], [place] [address] CBC Collected: 09/24/2017 Status: F Source: [place] 11:08 AM [facility] REPOSITORY TYPE CODE TESTS RESULT OUT OF REFERENCE UNITS RANGE LAB WBC 3.70-11.00 k/uL WBC 7.09 LAB RBC 3.90-5.20 m/uL RBC 4.03 LAB HGB 11.5-15.5 g/dL Low Hemoglobin 10.9 LAB HCT 36.0-46.0 % Low Hematocrit 35.7 LAB MCV 80.0-100.0 fL MCV 88.6 LAB MCH 26.0-34.0 pG MCH 27.0 LAB MCHC 30.5-36.0 g/dL MCHC 30.5 LAB RDWCV 11.5-15.0 % RDW-CV High 15.9 LAB PLTCT 150-400 k/uL Platelet Count 294 LAB MPV 9.0-12.7 fL MPV 11.0 LAB ABSNUC <0.01 k/uL Absolute nRBC <0.01 Performed By: #### PT, PTT, CBC, BMP #### [facility] [address] [place], [place] [address] BASIC METABOLIC PANL Collected: 09/24/2017 Status: F Source: [place] 11:08 AM [facility] REPOSITORY TYPE CODE TESTS RESULT OUT OF REFERENCE UNITS RANGE LAB GLU 74-99 mg/dL High Glucose 128 Result Comment: The [place] Diabetes Association (ADA) provides guidance for cutoff values for fasting glucose and random glucose. The ADA defines fasting as no caloric intake for at least 8 hours. Fas ting plasma glucose results between 100 to 125 mg/dL indicate increased risk for diabetes (prediabetes). Fasting plasma glucose results greater than or equal to 126 mg/dL meet the criteria for diagnosis of diabetes. In the absence of unequivocal hyperglycemia, results should be confirmed by repeat testing. In a patient with classic symptoms of hyperglycemia or hyperglycemic crisis, random plasma glucose results greater than or equal to 200 mg/dL meet the criteria for diagnosis of diabetes. Reference: Standards of Medical Care in Diabetes 2016, [place] [employer] Association. Diabetes Care. 2016.39(Suppl 1). LAB BUN 7-21 mg/dL BUN 10 LAB CRET 0.58-0.96 mg/dL Creatinine 0.70 LAB NA 136-144 mmol/L Sodium 140 LAB K 3.7-5.1 mmol/L Potassium 4.8 LAB CL 97-105 mmol/L Chloride 101 LAB CO2 22-30 mmol/L CO2 25 LAB AGAP 9-18 mmol/L Anion Gap 14 LAB CA 8.5-10.2 mg/dL Calcium, Total 9.2 LAB GFRAA eGFR- Amer. >60 LAB GFRNAA . eGFR-All Other Races >60 Result Comment: eGFR (Estimated GFR) Units of measure: mL/min/1.73 meters squared eGFR is derived from the reexpressed MDRD Study equation using the following parameters: serum creatinine, age, gender and race. The creatinine assay has been calibrated to be traceable to IDMS. An eGFR <60 mL/min/1.73m2 for >3 months is consistent with chronic kidney disease. Refer to KDOQI guidelines for clinical interpretation. In patients with unstable renal function, e.g. those with acute kidney injury, the eGFR may not accurately reflect actual GFR. Performed By: #### PT, PTT, CBC, BMP #### [facility] [address], [place] [id number] PULMONARY VISIT REPORT Observed: 09/19/2017 Status: F Source: [place] 12:17 PM [facility] REPOSITORY [facility] of [address] [place] [address] OFFICE VISIT Date of Service: 09/19/17 MR#: [id number] Acct: [id number] Name: ANNE MARIE MANNING Rep #: [id number] : 1980 Provider: Krzysztof Argueta D.O. Age/Sex: 36/F [place] [facility] Status: Signed Assessment AND Plan 1. Upper airway cough syndrome R05 Plan The patient's cough related complaints is most likely the consequence of an upper airway cough syndrome precipitated by postnasal drip in the setting of chronic sinus disease. She reports that she currently has a sinus surgery scheduled at [facility] in the upcoming future. I have a low clinical index of suspicion for underlying pulmonary sarcoidosis, given the lack of hilar adenopathy or interstitial changes noted on her most recent CTA chest. Given the patient's prior smoking history, we will plan to also baseline pulmonary function testing. She does report a prior history of asthma. Orders Orders: 2. Asthma J45.909 Plan The patient states that she was previously diagnosed with asthma. Although she was previously prescribed Symbicort and as needed albuterol, she is no longer using her Symbicort, noting a lack of symptom response to therapy. She does, nonetheless, report symptom improvement with the use of her short acting beta agonist. As above, we will plan to obtain baseline pulmonary function testing. May need to consider initiation of a low- dose inhaled corticosteroid at her follow-up office visit, depending on her symptoms and frequency with which utilizes her albuterol rescue inhaler. 3. Allergic rhinitis J30.9 Plan The patient does report a history of seasonal allergic rhinitis, with symptoms primarily worse during the summer months. Over concern for allergic implications to her current symptoms, will obtain a serum RAST test and IgE level. Orders Orders: 4. SIERRA (obstructive sleep apnea) G47.33 Plan The patient currently reports compliance with prescribed CPAP. We will be linked with [facility] and generate a compliance report at her follow-up office visit for review. 5. Obesity E66.9 Plan Weight loss through dietary modification and a graded exercise regimen is strongly encouraged. 6. Tobacco dependence in remission F17.201 Plan Continued tobacco cessation strongly encouraged. Plan Detail Follow Up 6 Weeks (CSM) HPI HPI Comments Details: The patient is a 36-year-old female who presents to the clinic today in referral for evaluation of a cough and suspected pulmonary sarcoidosis. Patient currently follows with Dr. Mary Lopez. 6 pages of outside medical records were personally reviewed. The patient reports the presence of a cough, which has been present 1 year. The cough itself is primarily productive in nature with yellow sputum expectoration. The patient was seen previously by a community relations coordinator at the [facility]. It has been approximately 2 years since her last office visit with them. She reports that they had a clinical suspicion for potential underlying pulmonary sarcoidosis. However, the patient never underwent any form of a lung biopsy. The patient does appear to have chronic sinus disease, for which she is following with a specialist at the [facility]. She reports that she has an upcoming sinus surgery planned for the end of the month. She reports chronic sinus drainage and postnasal drip, which is currently active. She believes that she was told previously that she had asthma. She also believes that she previously underwent pulmonary function testing, although there are no prior results available to me. Does endorse a history of seasonal allergic rhinitis, with symptoms primarily worse in the summer months. She is a former smoker of one pack per day 15 years, having quit completely in 2014. Although she was previously prescribed Symbicort, she is not currently utilizing some medication. She does occasionally utilize albuterol, with symptom improvement noted. She reports occasional chest tightness and wheezing. She denies fevers, chills, night sweats or sinus pressure/pain. Her weight has been relatively stable. She does state that her PCP placed her on steroids for approximately 2 month. Steroids were stopped approximately [address] chest completed in both February and April 2017 showed no parenchymal abnormalities or evidence of mediastinal/hilar lymphadenopathy. She does have a documented history of obstructive sleep apnea based off of a polysomnogram completed in August 2014. At that time, it was recommended that the patient be placed on nasal CPAP with a pressure setting of 14 cm of water with humidification. The patient reports compliance with the use of her home CPAP. She is currently utilizing a full facemask. [employer] is her current DME provider. Intake Vital Signs09/19/17 Height 5 ft 7 in 09/19/17 Weight: 290 lb Intake Visit Reasons: Dr. Lopez referral DME Vendor: [employer] Accompanied by: Self Allergies tramadol HCl [From [facility]] Adverse Reaction (Verified 09/19/17 06:48) Vomiting Medications Albuterol Inhaler [Ventolin Hfa] 1 - 2 puff INHALATION Q6H PRN PRN 07/31/14 [History Confirmed 09/19/17] Insulin Glargine [Lantus SoloStar Pen] 50 units SC BID 07/31/14 [History Confirmed 09/19/17] Magnesium 400 mg PO BID 07/31/14 [History Confirmed 09/19/17] Pantoprazole Sodium [Protonix] 40 mg PO BID 07/31/14 [History Confirmed 09/19/17] Pramipexole Di-HCl [Mirapex] 1 mg PO QHS 07/31/14 [History Confirmed 09/19/17] Budesonide/Formoterol 160/4.5 [Symbicort 160/4.5 Mcg Inhaler (SP)] 2 puff INHALATION BID PRN PRN 01/27/15 [History Confirmed 09/19/17] Pregabalin [Lyrica] 100 mg PO TID 01/27/15 [History Confirmed 09/19/17] Tizanidine HCl 4 mg PO QHS 01/27/15 [History Confirmed 09/19/17] Oxycodone HCl/Acetaminophen [Percocet 5/325] 1 tab PO Q6H PRN PRN #12 tab 02/28/15 [Rx Confirmed 09/19/17] Atorvastatin Calcium [Lipitor] 40 mg PO QHS 07/19/16 [History Confirmed 09/19/17] DiphenhydrAMINE [Benadryl] 25 mg PO BID 07/19/16 [History Confirmed 09/19/17] ALPRAZolam [Xanax] 0.5 mg PO TID PRN PRN 02/11/17 [History Confirmed 09/19/17] Citalopram [Celexa] 40 mg PO DAILY 02/11/17 [History Confirmed 09/19/17] Insulin Aspart [Novolog Flexpen (BKC)] 100 units SC TIDCM 02/11/17 [History Confirmed 09/19/17] Rivaroxaban [Xarelto] 20 mg PO DAILY 02/11/17 [History Confirmed 09/19/17] [facility] Medical History Chronic ethmoidal sinusitis (Chronic) Chronic cough (Chronic) Depression (Chronic) Rosacea (Chronic) Anxiety (Chronic) Morbid obesity (Chronic) Atopic dermatitis (Chronic) Chronic mastoiditis (Chronic) Myalgia and myositis (Chronic) Peripheral edema (Chronic) SIERRA (obstructive sleep apnea) (Chronic) Restless legs syndrome (Chronic) Chronic back pain (Chronic) Acute DVT (deep venous thrombosis) (Resolved) Hyperlipidemia (Chronic) Sarcoidosis (Suspected) Asthma (Chronic) History of depression (Chronic) GERD (gastroesophageal reflux disease) (Chronic) DM type 2 (diabetes mellitus, type 2) (Chronic) Peripheral neuropathy (Chronic) Lymphadenitis (Inactive) Surgical History history of sinusplasty (Resolved) History of tubal ligation (Resolved) History of total hysterectomy (Resolved) History of cholecystectomy (Resolved) Family History Father Diabetes Asthma Brother Asthma Social History Smoking Status: Former smoker Review of Systems Const CONSTITUTIONAL: Positive anorexia, body ache, daytime sleepiness, night sweats, stops breathing during sleep and weight loss; negative chills, fever(s), oral thrush, weight loss, sleeping in chair, fatigue, weight gain, frequent colds, seasonal allergies, other, headache(s) or orthopnea EETM Ear Nose Throat Mouth: Positive hearing normal, hoarseness, dry mouth in morning, swallowing Difficulty, nasal congestion, sinus pain, sinus pressure and sore throat; negative hard of hearing, change in vision, itchy eyes, eye pain, ear pain, nose bleed, headache(s), mouth pain, nasal discharge, post nasal drip or other Cardio Cardiovascular: Positive edema; negative chest pain, chest pain at rest, chest pain with activity, irregular heart rhythm, shortness of breath when lying down, palpitations, murmur or other Resp Respiratory: Positive as per HPI, chest congestion, cough, pain on inspiration, inhalers, snoring and apnea; negative shortness of breath, pain with cough, wheezing, chest tightness, increase use of rescue inhalers or other Gastro Gastrointestional: Negative bloody stools, change in appetite, difficulty swallowing, reflux, hematemesis, melena stool, loose stool, constipation or other Genitourinary: Positive nocturia; negative blood in urine, pain with urination or other Musc Musculoskeletal: Positive body pain, back pain and neck pain; negative other Skin/Breast Skin/Breast: Positive dry skin and itching; negative rash, unusual bruising, breast lump or other Neuro Neurological: Positive restless legs and weakness; negative confusion or other Psych Psychocological: Positive abnormal sleep pattern, anxiety and hopelessness; negative thoughts of hurting self/others or other Lymph Lymphatic: Negative easy bleeding, easy bruising, swollen lymph nodes or other Exam Const Constitutional: Positive cooperative, in no acute respiratory distress, well developed, well nourished, appears older than stated age, obese and conversant Head Head: Positive normocephalic and atraumatic; negative cyanosis of lips/distal nose Eyes Eye: Positive clear conjunctiva; negative nystagmus or scleral abnormality Ears Ear: Positive hearing normal; negative hard of hearing Nose Nose: Positive external nose normal; negative epistaxis Mouth Mouth: Positive oral mucosae normal, no lesions and posterior oropharynx is adequate; negative post nasal drip Neck Neck: Positive normal visual inspection, trachea midline and thick neck; negative lymphadenopathy Chest Wall Chest: Positive symmetric chest movement Normal AP diameter. Resp lung sounds: Positive clear to auscultation and good air exchange; negative wheezes, rhonchi or rales Cardio Cardiac: Positive regular rate, regular rhythm, S1 normal and S2 normal; negative murmur, rub or gallop GI GI: Positive normal bowel sounds and obese Soft without distention Genitourinary: Positive deferred Musc Musculoskeletal: Positive steady gait Skin Pulmonary Skin Exam: Positive intact; negative rash, lesion or ulcers Pulses Pulse: Yes Pedal pulses present: Extremities Extremities: No clubbing, No cyanosis, No edema Neuro Neurologic: Yes conversant, Yes no focal neuro deficits, Yes cooperative Lymph Lymphatic: No lymphadenopathy Psych Appearance: Positive grossly normal Mental Status: Positive mental status grossly normal Mood: Positive congruent mood Affect: Positive normal affect 09/19/17 1217 <Electronically signed by Krzysztof Argueta DO> Date Krzysztof Argueta DO Cosigner Signature: Date (if applicable) CC: Mary Lopez DO IMMUNOGLOBULIN E Collected: 09/19/2017 Status: F Source: [place] 7:47 AM [facility] REPOSITORY TYPE CODE TESTS RESULT OUT OF RANGE REFERENCE UNITS LAB L3200.1600 0-100 IU/mL Normal IMMUNO E 14 Result Comment: Performed at: [address], [place] [id number] [facility] Manager: Chase Cohn PhD, Phone: [phone] Performed By: #### L3200.1600 #### [facility] (refer to report for specific site) refer to report for address and phone number MISCELLANEOUS LAB Collected: 09/19/2017 Status: F Source: [place] PROCEDURE 7:47 AM [facility] REPOSITORY Order Comment: Comments: Zone 8 RAST Test [id number] SERUM/RT Comments: Zone 8 RAST Test Test(s) Ordered: Zone 8 RAST Test [id number] SERUM/RT TYPE CODE TESTS RESULT OUT OF RANGE REFERENCE UNITS LAB L801.1541 Normal [facility] LAB TEST Result Comment: TEST RESULT UNITS ERF INTERVAL Allergens w/Total IgE Area Class Description Levels of Specific IgE Class Description of Class ----- < 0.10 0 Negative 0.10 - 0.31 0/ Equivocal/Low 0.32 - 0.55 I Low 0.56 - 1.40 II Moderate 1.41 - 3.90 III High 3.91 - 19.00 IV Very High 19.01 - 100.00 V Very High >100.00 Very High Immunoglobulin E, Total 14 IU/mL 0 - 100 02 C681-LoT D pteronyssinus <0.10 kU/L Class 0 01 O422-XeM D farinae <0.10 kU/L Class 0 01 C892-PkJ Cat Dander <0.10 kU/L Class 0 01 Q426-EaH Dog Dander <0.10 kU/L Class 0 01 G661-NfJ B[place] Grass <0.10 kU/L Class 0 01 M506-VnW Jayy Grass <0.10 kU/L Class 0 01 E204-DdP Cockroach, Korean <0.10 kU/L Class 0 01 T524-VsI Penicillium chrysogen <0.10 kU/L Class 0 01 F740-VeB Cladosporium herbarum <0.10 kU/L Class 0 01 R499-HfT Aspergillus fumigatus <0.10 kU/L Class 0 01 Z227-SjE Alternaria alternata <0.10 kU/L Class 0 01 U761-YkN Maple/[place] <0.10 kU/L Class 0 01 S874-OzQ Long, Mountain <0.10 kU/L Class 0 01 A512-DqK [place] Bar, White <0.10 kU/L Class 0 01 U174-TrQ Elm, Jamaican <0.10 kU/L Class 0 01 E918-RaB Maple [place] <0.10 kU/L Class 0 01 L235-CtH [place] <0.10 kU/L Class 0 01 C051-CpM Vaibhav, White <0.10 kU/L Class 0 01 C602-OeR [place] <0.10 kU/L Class 0 01 W815-QcP Pecan, [place] <0.10 kU/L Class 0 01 S238-MmC White [place] <0.10 kU/L Class 0 01 N170-PxQ Ragweed, Short <0.10 kU/L Class 0 01 V325-RnH Thistle, Portuguese <0.10 kU/L Class 0 01 X434-KgB Pigweed, Common <0.10 kU/L Class 0 01 M846-ShD Rough [place]er <0.10 kU/L Class 0 01 O745-AaU Mouse Urine <0.10 kU/L Class 0 01 TESTING PERFORMED AT [facility]. ORIGINAL REPORT ON FILE IN LAB CONTAINS ADDITIONAL TEST SITE INFORMATION. Performed By: #### L801.1541 #### [facility] [address] [place], [address] PROGRESS Observed: 09/05/2017 Status: COMPLETED Source: [place] 2:42 PM [facility] REPOSITORY O ID: [id number] Author: Dacia Fernandez (Manuel) SAMUEL Reeves Service: (none) Author Type: Nurse Practitioner Type: Progress Notes Filed: 09/05/2017 2:45 PM Note Text: HPI Patient presents with: Left Knee Pain: fell a few hours ago Taking home rx of Percocet with moderate relief. Review of Systems Musculoskeletal: Positive for joint pain (fell directly on knee cap x 2 hours ago). All other systems reviewed and are negative. PAST MEDICAL HISTORY Diagnosis Date - Antiphospholipid antibody syndrome ([facility]) 11/18/2012 - Anxiety state, unspecified ANXIETY/DEPRESSION - Asthma - Blood type B+ - Depression - Diabetes mellitus without mention of complication Diabetes mellitus-diet controlled except with past - DM type 2 with diabetic peripheral neuropathy ([facility]) 02/06/2013 - Hernia, diaphragmatic Hiatal hernia - SIERRA (obstructive sleep apnea) - PMH - PAST MEDICAL HISTORY OF THYROID NODULE - Sepsis ([facility]) 2012 - Sinusitis - Transient hypertension of , antepartum - Unspecified asthma(493.90) Dx as a teenager PAST SURGICAL HISTORY Procedure Laterality Date - EGD - EGD W/O OR W/BRUSH/WASH 07/10/2013 EGD - IMPLANON INSERTION 09/22/10 and removed - PAST SURGICAL HISTORY OF 2012 I and D of neck abscess - PAST SURGICAL HISTORY OF tubal ligation - PAST SURGICAL HISTORY OF 2011 hysteroscopy with ablation - PAST SURGICAL HISTORY OF 2013 Lymph node removals - REMOVAL GALLBLADDER 2012 - TOTAL ABDOM HYSTERECTOMY OVARIES IN PLACE. ALLERGIES Ultram [Tramadol Hcl] MEDICATIONS BASAGLAR KWIKPEN 100 unit/mL (3 mL) inpn inject SUBCUTANEOUSLY 76 UNITS TWICE DAILY OR DIRECTED mupirocin (BACTROBAN) 2 % ointment Please apply area twice daily. sodium chloride (STERILE SALINE) 0.9 % IRRIGATION Please use to rinse area twice daily. Please dispense seven 1 liter bottles levothyroxine (SYNTHROID) 25 mcg tablet Take 1 tablet by mouth once daily. citalopram (CELEXA) 40 mg tablet Take 60 mg by mouth once daily. rivaroxaban (XARELTO) 20 mg tablet Take 20 mg by mouth daily with dinner. doxepin capsule 50 mg Take 50 mg by mouth daily at bedtime. tiZANidine HCl 4 mg capsule Take 4 mg by mouth daily at bedtime. atorvastatin (LIPITOR) 40 mg tablet Take 40 mg by mouth once daily. INSULIN ASPART (NOVOLOG SUBCUTANEOUS) Inject 15 Units subcutaneously. promethazine (PHENERGAN) 50 mg tab(s) Take 50 mg by mouth as needed. FREESTYLE LITE METER monitoring kit EASY TOUCH TWIST LANCETS 33 gauge misc LYRICA 50 mg capsule Take 50 mg by mouth twice daily. blood sugar diagnostic (BLOOD GLUCOSE TEST) test strip Test blood sugar(s) 3 times daily. Dx: 250.02. Insulin: No Lancets lancets Test blood sugar(s) three times daily. Dx: 250.02. Insulin: Yes pantoprazole DR (PROTONIX) 40 mg tablet Take 1 tablet by mouth twice daily. Take on empty stomach, 1/2 hr before meal. Magnesium Hydroxide 400 mg (170 mg) chew Take 400 mg by mouth twice daily. pramipexole (MIRAPEX) 1 mg tablet Take 1 tablet by mouth daily at bedtime. oxyCODONE-acetaminophen (PERCOCET) 5-325 mg tablet Take 1 tablet by mouth every 8 hours as needed. Lancing Device with Lancets Kit Lancet Device Dx: 250.02 predniSONE (DELTASONE) 10 mg tablet Take 10 mg by mouth as directed. zolpidem (AMBIEN) 10 mg tab Take by mouth daily at bedtime. ALPRAZOLAM (XANAX ORAL) Take by mouth three times daily as needed. baclofen (LIORESAL) 10 mg tablet Take 1 tablet by mouth daily at bedtime. INSULIN GLARGINE,HUM.REC.ANLOG (LANTUS SUBCUTANEOUS) Inject subcutaneously. FAMILY HISTORY Problem Relation Age of Onset - Arthritis Mother and grandmother - Hypertension Father - COPD Father - Hypertension Maternal Grandmother - Hypertension Maternal Grandfather - Breast Cancer Paternal Grandmother - Diabetes Paternal Grandmother - Asthma Brother - sleep apnea [OTHER] Sister Social History Substance Use Topics - Smoking status: Former Smoker Packs/day: 1.00 Years: 10.00 Types: Cigarettes Quit date: 01/25/2013 - Smokeless tobacco: Never Used - Alcohol use Yes Comment: rarely Physical Exam Musculoskeletal: Left knee: She exhibits decreased range of motion (due to pain) and swelling (mild). She exhibits no effusion, no ecchymosis, no deformity, no laceration, no erythema, normal alignment, no LCL laxity, normal patellar mobility, no bony tenderness, normal meniscus and no MCL laxity. Tenderness found. Patellar tendon tenderness noted. Skin: Abrasion (anterior knee infrapatellar area with small abrasion, no active bleeding) noted. Nursing note and vitals reviewed. ASSESSMENT/PLAN: 1. Left knee injury, initial encounter - ICD9: 959.7, ICD10: S89.92XA - Reviewed xray, no acute process noted - Pt verbalized understanding. - Treat as contusion - RICE - NSAIDs - Jorge wrap applied - F/u with pcp in 7-10 days or sooner if symptoms are not improving or worsening - XR KNEE LIMITED 2V AP/LAT LT Prescription instructions reviewed with patient as applicable. Patient advised if symptoms do not improve or if symptoms worsen sooner, to contact their primary care physician. Potential red flag symptoms discussed with the patient. Reviewed appropriate action plan to take if red flag symptoms occur. Patient agreeable to treatment plan. Dacia Reeves CNP PROGRESS Observed: 09/05/2017 Status: COMPLETED Source: [place] 2:31 PM [facility] REPOSITORY HNO ID: [id number] Author: Tesha Chin (Hector) Hector Avery Service: (none) Author Type: Behavioral Health Consultant Type: Progress Notes Filed: 09/05/2017 2:32 PM Note Text: Radiology Service Progress Note PATIENT NAME: Anne Marie Manning DATE OF SERVICE: September 05, 2017 TIME: 2:31 PM PATIENT IDENTITY VERIFICATION COMPLETED USING TWO (2) METHODS: Patient confirmed name verbally and Date of . PATIENT GENDER DATA: Female. status: : No status: NO. PATIENT RELEVANT IMPLANT DATA REVIEWED: Not Applicable RADIOLOGY DEPARTMENT: General X-ray: Exam(s) Completed: Lower Extremity X-Ray(s): Knee, AP / LAT Left: PERIPHERAL IV DATA: Not applicable SIGNED BY: Hector Georges September 05, 2017 2:31 PM XR KNEE 2V AP/LAT Observed: 09/05/2017 Status: F Source: [facility] 2:29 PM [facility] REPOSITORY * * *Final Report* * * DATE OF EXAM: Sep 05 2017 2:29PM WOX [id number] - XR KNEE 2V AP/LAT LT / PROCEDURE REASON: Unspecified injury of left lower leg, initial encounter * * * * Physician Interpretation * * * * EXAM TITLE: XR KNEE 2V AP/LAT LT EXAM DATE/TIME: 09/05/2017 2:29 PM COMPARISON: None. CLINICAL INDICATION/HISTORY: Injury TECHNIQUE: AP, lateral and oblique views of the left knee are presented. FINDINGS: No fractures or subluxations are noted. The joint spaces are well preserved. Mild marginal osteophyte formation is present. There is no evidence of joint effusion. The mineralization of the bones is normal. There is no significant soft tissue swelling. IMPRESSION: No acute findings in the left knee. Deck Worker: PSCB Transcribe Date/Time: Sep 05 2017 2:51P Dictated by : POOJA ADAMS MD This examination was interpreted and the report reviewed and electronically signed by: POOJA ADAMS MD on Sep 05 2017 2:54PM EST [id number] Observed: 09/05/2017 Status: COMPLETED Source: [place] 2:15 PM [facility] REPOSITORY Office Visit ([facility]) ANNE MARIE MANNING ([id number]) 1980 F Date Time Provider Department 09/05/17 2:15 PM DACIA REEVES ([employer]INE [employer] TECHNICIAN) [facility] During your visit today, we recorded the following information about you: Temperature Pulse Respiration Blood pressure 98.1 degrees 84/minute 20/minute 104/64 Weight 135.5 kg Dacia Reeves CNP, CONSUMER SAFETY OFFICER 09/05/2017 2:38 PM Signed CONTUSIONS GENERAL INFORMATION: A contusion, or bruise, is caused by an injury that does not break the skin. Bleeding under the skin causes it to look black and blue. It may take 2 or 3 weeks for the bruising to disappear. INSTRUCTIONS: 1. You may continue your normal daily activities as tolerated. Rest the injured area as much as possible. 2. Apply ice to the injury for 15 minutes each hour (while awake) for the first two days. Put the ice in a plastic bag and place a thin towel between the bag of ice and your skin. 3. After the first 1 to 2 days, you may apply heat to the injury to help relieve pain. You may use a warm heating pad, whirlpool bath, or warm moist towels for 15-20 minutes every hour (while awake) for 48 hours. 4. You may use medicines for pain such as acetaminophen, ibuprofen or aspirin (unless otherwise instructed by your physician). CONTACT YOUR DOCTOR OR RETURN TO THE ED IF: 1. Your pain becomes worse. 2. You develop a temperature over 101 F (38.3 C). 3. The swelling increases greatly in the area of the bruise. 4. Redness or lines of redness develop in the area of the bruise. Dacia Reeves, CONSUMER SAFETY OFFICER, CONSUMER SAFETY OFFICER 09/05/2017 2:45 PM Signed HPI Patient presents with: Left Knee Pain: fell a few hours ago Taking home rx of Percocet with moderate relief. Review of Systems Musculoskeletal: Positive for joint pain (fell directly on knee cap x 2 hours ago). All other systems reviewed and are negative. PAST MEDICAL HISTORY Diagnosis Date - Antiphospholipid antibody syndrome ([facility]) 11/18/2012 - Anxiety state, unspecified ANXIETY/DEPRESSION - Asthma - Blood type B+ - Depression - Diabetes mellitus without mention of complication Diabetes mellitus-diet controlled except with past - DM type 2 with diabetic peripheral neuropathy ([facility]) 02/06/2013 - Hernia, diaphragmatic Hiatal hernia - SIERRA (obstructive sleep apnea) - PMH - PAST MEDICAL HISTORY OF THYROID NODULE - Sepsis ([facility]) 2012 - Sinusitis - Transient hypertension of , antepartum - Unspecified asthma(493.90) Dx as a teenager PAST SURGICAL HISTORY Procedure Laterality Date - EGD - EGD W/O OR W/BRUSH/WASH 07/10/2013 EGD - IMPLANON INSERTION 09/22/10 and removed - PAST SURGICAL HISTORY OF 2012 I and D of neck abscess - PAST SURGICAL HISTORY OF tubal ligation - PAST SURGICAL HISTORY OF 2011 hysteroscopy with ablation - PAST SURGICAL HISTORY OF 2013 Lymph node removals - REMOVAL GALLBLADDER 2012 - TOTAL ABDOM HYSTERECTOMY OVARIES IN PLACE. ALLERGIES Ultram [Tramadol Hcl] MEDICATIONS BASAGLAR KWIKPEN 100 unit/mL (3 mL) inpn inject SUBCUTANEOUSLY 76 UNITS TWICE DAILY OR DIRECTED mupirocin (BACTROBAN) 2 % ointment Please apply area twice daily. sodium chloride (STERILE SALINE) 0.9 % IRRIGATION Please use to rinse area twice daily. Please dispense seven 1 liter bottles levothyroxine (SYNTHROID) 25 mcg tablet Take 1 tablet by mouth once daily. citalopram (CELEXA) 40 mg tablet Take 60 mg by mouth once daily. rivaroxaban (XARELTO) 20 mg tablet Take 20 mg by mouth daily with dinner. doxepin capsule 50 mg Take 50 mg by mouth daily at bedtime. tiZANidine HCl 4 mg capsule Take 4 mg by mouth daily at bedtime. atorvastatin (LIPITOR) 40 mg tablet Take 40 mg by mouth once daily. INSULIN ASPART (NOVOLOG SUBCUTANEOUS) Inject 15 Units subcutaneously. promethazine (PHENERGAN) 50 mg tab(s) Take 50 mg by mouth as needed. FREESTYLE LITE METER monitoring kit EASY TOUCH TWIST LANCETS 33 gauge misc LYRICA 50 mg capsule Take 50 mg by mouth twice daily. blood sugar diagnostic (BLOOD GLUCOSE TEST) test strip Test blood sugar(s) 3 times daily. Dx: 250.02. Insulin: No Lancets lancets Test blood sugar(s) three times daily. Dx: 250.02. Insulin: Yes pantoprazole DR (PROTONIX) 40 mg tablet Take 1 tablet by mouth twice daily. Take on empty stomach, 1/2 hr before meal. Magnesium Hydroxide 400 mg (170 mg) chew Take 400 mg by mouth twice daily. pramipexole (MIRAPEX) 1 mg tablet Take 1 tablet by mouth daily at bedtime. oxyCODONE-acetaminophen (PERCOCET) 5-325 mg tablet Take 1 tablet by mouth every 8 hours as needed. Lancing Device with Lancets Kit Lancet Device Dx: 250.02 predniSONE (DELTASONE) 10 mg tablet Take 10 mg by mouth as directed. zolpidem (AMBIEN) 10 mg tab Take by mouth daily at bedtime. ALPRAZOLAM (XANAX ORAL) Take by mouth three times daily as needed. baclofen (LIORESAL) 10 mg tablet Take 1 tablet by mouth daily at bedtime. INSULIN GLARGINE,HUM.REC.ANLOG (LANTUS SUBCUTANEOUS) Inject subcutaneously. FAMILY HISTORY Problem Relation Age of Onset - Arthritis Mother and grandmother - Hypertension Father - COPD Father - Hypertension Maternal Grandmother - Hypertension Maternal Grandfather - Breast Cancer Paternal Grandmother - Diabetes Paternal Grandmother - Asthma Brother - sleep apnea [OTHER] Sister Social History Substance Use Topics - Smoking status: Former Smoker Packs/day: 1.00 Years: 10.00 Types: Cigarettes Quit date: 01/25/2013 - Smokeless tobacco: Never Used - Alcohol use Yes Comment: rarely Physical Exam Musculoskeletal: Left knee: She exhibits decreased range of motion (due to pain) and swelling (mild). She exhibits no effusion, no ecchymosis, no deformity, no laceration, no erythema, normal alignment, no LCL laxity, normal patellar mobility, no bony tenderness, normal meniscus and no MCL laxity. Tenderness found. Patellar tendon tenderness noted. Skin: Abrasion (anterior knee infrapatellar area with small abrasion, no active bleeding) noted. Nursing note and vitals reviewed. ASSESSMENT/PLAN: 1. Left knee injury, initial encounter - ICD9: 959.7, ICD10: S89.92XA - Reviewed xray, no acute process noted - Pt verbalized understanding. - Treat as contusion - RICE - NSAIDs - Jorge wrap applied - F/u with pcp in 7-10 days or sooner if symptoms are not improving or worsening - XR KNEE LIMITED 2V AP/LAT LT Prescription instructions reviewed with patient as applicable. Patient advised if symptoms do not improve or if symptoms worsen sooner, to contact their primary care physician. Potential red flag symptoms discussed with the patient. Reviewed appropriate action plan to take if red flag symptoms occur. Patient agreeable to treatment plan. Dacia Reeves CNP Referring Provider: SELF [[id number]] Allergies As of Date: 09/05/2017 Noted Allergy Reaction ULTRAM (TRAMADOL HCL) 11/20/2006 8 - GI Upset Date Reviewed: 09/05/2017 Reviewed by: Nola Perkins LPN - Fully Assessed Reason for Visit: Left Knee Pain [1208] Cmt: fell a few hours ago Primary Visit Diagnosis:Left knee injury, initial encounter [S89.92XA] Order(s):XR KNEE LIMITED 2V AP/LAT LT [[id number]] Order #: [id number] FUTURE Prescriptions as of 09/05/2017 Sig: BASAGLAR KWIKPEN 100 UNIT/ML * inject SUBCUTANEOUSLY 76 UNIT* MUPIROCIN 2 % TOPICAL OINTMENT Please apply area twice daily. SODIUM CHLORIDE 0.9 % IRRIGAT* Please use to rinse area twic* LEVOTHYROXINE 25 MCG TABLET Take 1 tablet by mouth once d* CITALOPRAM 40 MG TABLET Take 60 mg by mouth once te* RIVAROXABAN 20 MG TABLET Take 20 mg by mouth daily wit* DOXEPIN 50 MG CAPSULE Take 50 mg by mouth daily at * TIZANIDINE 4 MG CAPSULE Take 4 mg by mouth daily at b* ATORVASTATIN 40 MG TABLET Take 40 mg by mouth once te* NOVOLOG SUBCUTANEOUS Inject 15 Units subcutaneousl* PROMETHAZINE 50 MG TABLET Take 50 mg by mouth as needed. FREESTYLE LITE METER KIT EASY TOUCH TWIST LANCETS 33 G* LYRICA 50 MG CAPSULE Take 50 mg by mouth twice katherine* BLOOD SUGAR DIAGNOSTIC STRIPS Test blood sugar(s) 3 times d* LANCETS Test blood sugar(s) three kenrick* PANTOPRAZOLE 40 MG TABLET,DEL* Take 1 tablet by mouth twice * MAGNESIUM HYDROXIDE 400 MG (1* Take 400 mg by mouth twice da* PRAMIPEXOLE 1 MG TABLET Take 1 tablet by mouth daily * OXYCODONE-ACETAMINOPHEN 5 MG-* Take 1 tablet by mouth every * LANCING DEVICE WITH LANCETS K* Lancet Device Dx: 250.02 PREDNISONE 10 MG TABLET Take 10 mg by mouth as direct* ZOLPIDEM 10 MG TABLET Take by mouth daily at bedti* XANAX ORAL Take by mouth three times da* BACLOFEN 10 MG TABLET Take 1 tablet by mouth daily * LANTUS SUBCUTANEOUS Inject subcutaneously. Problem List As Of Date 09/05/2017 Noted Resolved Supervision of other high-risk [O09.8*INVALID FOR*11/18/2012 Supervision of other normal [Z34.80] INVALID FOR*11/18/2012 Sebaceous cyst [L72.3] INVALID FOR*11/18/2012 Type II or unspecified type diabetes mellitus w*INVALID FOR*02/06/2013 Tobacco use disorder [F17.200] INVALID FOR* H/O thyroid nodule [Z86.39] INVALID FOR* More... GERD (gastroesophageal reflux disease) [K21.9] INVALID FOR* Asthma [J45.909] INVALID FOR* Depressive disorder, not elsewhere classified [*INVALID FOR* Antiphospholipid antibody syndrome [D68.61] INVALID FOR* Genital warts [A63.0] INVALID FOR* Other and unspecified hyperlipidemia [E78.5] INVALID FOR* Neuropathy in diabetes [E11.40] INVALID FOR* More... Sleep apnea [G47.30] INVALID FOR* Restless leg syndrome [G25.81] INVALID FOR* DM type 2 with diabetic peripheral neuropathy [*INVALID FOR* Lateral epicondylitis of right elbow [M77.11] INVALID FOR* Degeneration of lumbar or lumbosacral intervert*INVALID FOR* Other pain disorders related to psychological f*INVALID FOR* GERD with esophagitis [K21.0] INVALID FOR* Intractable vomiting with nausea [R11.2] INVALID FOR* History of thyroid cyst [Z86.39] INVALID FOR* Mild intermittent asthma without complication [*INVALID FOR* Chronic sinusitis [J32.9] INVALID FOR* More... Other instructions from your clinician: CONTUSIONS GENERAL INFORMATION: A contusion, or bruise, is caused by an injury that does not break the skin. Bleeding under the skin causes it to look black and blue. It may take 2 or 3 weeks for the bruising to disappear. INSTRUCTIONS: 1. You may continue your normal daily activities as tolerated. Rest the injured area as much as possible. 2. Apply ice to the injury for 15 minutes each hour (while awake) for the first two days. Put the ice in a plastic bag and place a thin towel between the bag of ice and your skin. 3. After the first 1 to 2 days, you may apply heat to the injury to help relieve pain. You may use a warm heating pad, whirlpool bath, or warm moist towels for 15-20 minutes every hour (while awake) for 48 hours. 4. You may use medicines for pain such as acetaminophen, ibuprofen or aspirin (unless otherwise instructed by your physician). CONTACT YOUR DOCTOR OR RETURN TO THE ED IF: 1. Your pain becomes worse. 2. You develop a temperature over 101 F (38.3 C). 3. The swelling increases greatly in the area of the bruise. 4. Redness or lines of redness develop in the area of the bruise. Disposition: Return if symptoms worsen or fail to improve. Follow-up and Disposition History Recorded Encounter Status:Closed by DACIA REEVES on 09/05/17 MICROALB:CREAT Collected: 08/29/2017 Status: F Source: DIANA RATIO,RANDOM UR 10:49 AM [facility] REPOSITORY TYPE CODE TESTS RESULT OUT OF RANGE REFERENCE UNITS LAB L501.1200 NO RANGE EST. mg/dL Normal UR CREAT 315.00 LAB L502.0500 NO RANGE EST. mg/L Normal 83.1 MICROALBUMIN ,UR LAB L502.0600 <30 mg/g CRE mg/g CRE Normal 26.4 MALB:CREAT Performed By: #### L502.0250 #### [facility] [address] [place], [address] ERYTHROCYTE SED RATE Collected: 08/29/2017 Status: F Source: [place] 10:44 AM [facility] REPOSITORY TYPE CODE TESTS RESULT OUT OF RANGE REFERENCE UNITS LAB L102.0000 0-20 mm/hr High SED RATE 68 Performed By: #### L101.9900, L100.0100 #### [facility] [address] [place], [address] CBC W/DIFF, AUTOMATED Collected: 08/29/2017 Status: F Source: [place] 10:44 AM [facility] REPOSITORY TYPE CODE TESTS RESULT OUT OF RANGE REFERENCE UNITS LAB L100.1000 4.4-11.0 K/mm3 Normal WBC 10.5 LAB L100.1200 4.2-5.4 M/mm3 Normal RBC 4.29 LAB L100.1300 12.0-15.0 g/dl Normal HGB 12.0 LAB L100.1400 37-47 % Normal HCT 37.2 LAB L100.1500 81-99 fL Normal MCV 86.7 LAB L100.1600 27.0-32.0 pg Normal MCH 28.0 LAB L100.1700 32-36 g/gl Normal MCHC 32.3 LAB L100.1810 11.6-14.6 % High RDW CV 14.8 LAB L100.1820 35.1-43.9 fl High RDW SD 46.2 LAB L100.1900 150-450 K/mm3 Normal PLT 304 LAB L100.2000 6.2-12.0 fl Normal MPV 10.8 LAB L100.2100 47-70 % Normal NEUT% 61.9 LAB L100.2200 19-41 % Normal LY% 27.4 LAB L100.2300 0-10 % Normal MONO% 8.5 LAB L100.2400 0-5 % Normal EO% 1.4 LAB L100.2500 0-1 % Normal BASO% 0.3 LAB L100.2550 0.0-0.9 % Normal IM GRAN % 0.500 Result Comment: IG% - Immature Granulocytes (promyelocytes, myelocytes and metamyelocytes) > 1% indicates that a LEFT SHIFT is Present. LAB L100.2620 2.0-7.7 X10 3/uL Normal Absolute Neut 6.5 LAB L100.2720 0.83-4.51 X10 3/ul Normal Absolute Lymph 2.88 Performed By: #### L101.9900, L100.0100 #### [facility] [address] [place], [address] COMPREHENSIVE METABOLIC Collected: 08/29/2017 Status: F Source: [facility] 10:44 AM [facility] REPOSITORY TYPE CODE TESTS RESULT OUT OF RANGE REFERENCE UNITS LAB L501.0100 70-110 mg/dL High GLU 114 Result Comment: Fasting Glucose result from 110 to <126 mg/dL suggests IMPAIRED HOMEOSTASIS per A.D.A. criteria. LAB L501.1000 7-18 mg/dL Normal BUN 13 LAB L501.1100 0.55-1.02 mg/dL Normal CREAT,SERUM 0.65 Result Comment: The validity of the calculated GFR AND GFRAA in patients over 70 years has not been determined. Clinical correlation is essential. LAB L501.1110 >60 mL/min Normal EST GFR 110 Result Comment: Non- GFR Calc LAB L501.1115 >60 mL/min Normal EST GFR - AA 133 Result Comment: GFR Calc LAB L501.1300 10-20 RATIO High BUN/CRE 20.1 LAB L501.1500 6.4-8.2 g/dL T Normal PROT 7.7 LAB L501.1800 3.4-5.0 g/dL Low ALB 3.3 Result Comment: Please note revised Albumin AND Globulin reference range effective 2017. LAB L501.1950 2.2-4.2 g/dL High GLOB 4.4 LAB L501.2000 0.9-2.4 RATIO Low A/G 0.8 LAB L501.2200 8.5-10.1 mg/dL Low CA 8.3 LAB L501.4100 15-37 U/L Low AST 12 LAB L501.4305 45-117 U/L Normal ALK P 100 LAB L501.4405 12-78 U/L Normal ALT 27 LAB L501.4600 0.20-1.00 mg/dL Normal T BILI 0.50 LAB L501.5300 136-145 mmol/L Normal NA 140 LAB L501.5600 3.5-5.1 mmol/L Normal K 3.5 LAB L501.5900 98-107 mmol/L High CL 108 LAB L501.6100 21.0-32.0 mmol/L Normal CO2 22.0 LAB L501.6200 5-15 Normal GAP 10 Performed By: #### L500.4050, L500.4100 #### [facility] [address] [place], [place], [address] LIPID PROFILE Collected: 08/29/2017 Status: F Source: [place] 10:44 AM [facility] REPOSITORY TYPE CODE TESTS RESULT OUT OF RANGE REFERENCE UNITS LAB L501.4900 200 mg/dL Normal CHOL 157 Result Comment: <200 mg/dL Desirable 200-240 mg/dL Borderline >240 mg/dL High Risk LAB L501.5000 mg/dL Normal TRIG 168 Result Comment: The drugs N-Acetylcysteine and Metamizole may falsely depress this assay. Serum Triglycerides Reference Interval Normal <150 mg/dL Borderline high 150 - 199 mg/dL High 200 - 499 mg/dL Very High > or = 500 mg/dL LAB L501.6400 mg/dL Normal HDL 42 Result Comment: The drugs N-Acetylcysteine and Metamizole may falsely depress this assay. Reference Range HDL <40 mg/dL Low HDL Cholesterol HDL >or= 60 mg/dL High HDL Cholesterol LAB L501.6500 0-130 mg/dL Normal LDL 81 LAB L501.6600 5-40 mg/dL Normal VLDL 34 Performed By: #### L500.4050, L500.4100 #### [facility] [address] [place], [place], [address] ANGIOTENSIN CONVERT Collected: 08/29/2017 Status: F Source: [place] ENZY[place] 10:44 AM [facility] REPOSITORY TYPE CODE TESTS RESULT OUT OF RANGE REFERENCE UNITS LAB L3100.6900 14-82 U/L Normal JORGE [address] 52 Result Comment: Performed at: - [facility] [id number] [facility] Manager: Chase Cohn PhD, Phone: [phone] Performed By: #### L3100.6900 #### [facility] (refer to report for specific site) refer to report for address and phone number ALLERGIES ALLERGIES DATE TYPE / CODE NAME / CODE REACTION SEVERITY SOURCE 07/08/2018 Drug tramadol Vomiting Unknown [facility] Allergy/416 HCl/[id number]( Hospital 162486(SNOM RXNORM) Repository ED CT) 11/20/2006 DRUG TRAMADOL HCL GI UPSET [facility] INGREDI/[address] [place] 826366(SNOM Repository ED CT) Drug ULTRAM/[id number] VOMITING Moderate Brad Pomerene Allergy/416 (RXNORM) ([facility] 422839(SNOM Modifier) Repository ED CT) (Qualifier Value) ENCOUNTERS ENCOUNTERS ADMIT/DISCHARGE ACCOUNT ADMITTING ENCOUNTER LOCATION SOURCE NUMBER CLASS 08/23/2018/08/26/20 [id number] Ambulatory [address] Repository 08/05/2018 [id number] Ambulatory [facility] ing:BFHLAB Repository 07/29/2018 [id number] Ambulatory [facility] ing:NM Repository 07/08/2018 [id number] Ambulatory BMSBuilding:B Diana MS.[facility] Repository 07/03/2018/07/03/20 [id number] Ambulatory [address] Repository 06/19/2018 [id number] Ambulatory [facility] ing:PSN Repository 06/19/2018 [id number] Ambulatory BMSBuilding:W [facility] Repository 06/13/2018 [id number] Ambulatory [facility] ing:BFHLAB Repository 05/01/2018 [id number] Ambulatory [facility] ing:LAB.FUTUR Repository E 04/08/2018/04/08/20 [id number] Ambulatory BMSBuilding:B Diana 18 MS.WSA [facility] Repository 04/07/2018/04/07/20 [id number] LEIF SHER [facility] [place] [address] 18 DO oom: ERBed: D [facility] Repository 04/03/2018/04/03/20 [id number] Ambulatory [address] Repository 04/02/2018 [id number] Ambulatory [facility] ing:LABSPEC Repository 04/01/2018/04/01/20 [id number] Ambulatory BMSBuilding:B Diana 18 MS.[facility] Repository 03/22/2018/03/22/20 [id number] Ambulatory BMSBuilding:B [place] 18 MS.[facility] Repository 03/20/2018/03/20/20 [id number] Ambulatory BMSBuilding:B Diana [address] MS[address] Repository 03/06/2018/03/06/20 [id number] Ambulatory [address] Repository 03/06/2018/03/06/20 [id number] Ambulatory [address] Repository 02/07/2018 [id number] Ambulatory [facility] ing:OPUS Repository 01/31/2018 [id number] Ambulatory [facility] ing:LAB Repository 01/31/2018/02/01/20 [id number] Ambulatory BMSBuilding:B [place] [address] MS[address] Repository 01/30/2018/02/06/20 [id number] Ambulatory [address] Repository 01/04/2018/01/08/20 [id number] Ambulatory [address] Repository 01/01/2018 [id number] Ambulatory [facility] ing:WOBLAB Repository 11/26/2017 [id number] Ambulatory [facility] ing:BFHLAB Repository 11/22/2017 [id number] Ambulatory BMSBuilding:B Diana MS.[facility] Repository 11/21/2017/11/22/19 [id number] Ambulatory [address] Repository 10/31/2017 [id number] Ambulatory BMSBuilding:B [place] MS.[facility] Repository 10/13/2017/10/14/19 [id number] LEIF SHER [facility] [place] [address] 18 DO oom: ERBed: A [facility] Repository 10/08/2017/10/08/19 [id number] CATARINO WILKERSON Ambulatory [address] Repository 09/26/2017 [id number] Ambulatory [facility] ing:PSN Repository 09/25/2017 [id number] Ambulatory BMSBuilding:B Diana MS.WEG [facility] Repository 09/24/2017/09/24/19 [id number] Ambulatory [address] [place] Repository 09/24/2017 [id number] Ambulatory [facility] Repository 09/24/2017/09/24/19 [id number] Ambulatory [address] Repository 09/24/2017 [id number] Ambulatory [facility] Repository 09/24/2017/09/24/19 [id number] Ambulatory [address] Repository 09/24/2017 [id number] Ambulatory [facility] Repository 09/19/2017 [id number] Ambulatory [facility] ing:LAB Repository 09/19/2017/09/19/19 [id number] Ambulatory BMSBuilding:B [place] 18 MS.PMW [facility] Repository 09/05/2017/09/05/20 [id number] Ambulatory [address] Repository 09/05/2017/09/12/19 [id number] Ambulatory [address] Repository 08/29/2017 [id number] Ambulatory [facility] ing:BFHLAB Repository PAYERS PAYERS ENCOUNTER GUARANTOR PAYER SUBSCRIBER SOURCE 08/05/2018 ANNE MARIE Garcia Primary ANNE MARIE ZARAGOZAB: [place] [id number] Insurance:CARESOURCEPo [id number] Number: [facility] [address]Cho: [id number] Repository Date:2018-08-05P O BOX (WQ) 0796ATTN: [place] [address]BB: 08/05/2018 Secondary NOT GIVENUNK Diana Insurance:SELF PAY [facility] Number: Effective Repository Date:2018-08-05 07/29/2018 ANNE MARIE M Primary ANNE MARIE M KEIMDOB: [place] [id number] SR Insurance:CARESOURCEPo [id number] Number: [facility] [address]Uhi: [id number] Repository Date:2018-06-13P O BOX (HP) 6738ATTN: [place] [address]XE: 07/29/2018 Secondary NOT GIVENUNK Diana Insurance[facility]LF [facility] Effective Repository Date:2018-06-13 07/08/2018 ANNE MARIE M Primary ANNE MARIE M CLAYTONIMDOB: Diana [id number] SR Insurance:CARESOURCEPo [id number] [address] Number: [facility] [address]Jic: [id number] Repository Date:2018-06-27P O BOX (HP) 2854ATTN: [place] [address]XG: 07/08/2018 Secondary NOT GIVENUNK [place] Insurance:SELF PAY [facility] Number: Effective Repository Date:2018-06-28 06/19/2018 ANNE MARIE M Primary ANNE MARIE M KEIMDOB: Diana [id number] SR Insurance:CARESOURCEPo [id number] Number: [facility] [address]Gnr: [id number] Repository Date:2018-06-14P O BOX (HP) 2730ATTN: [place] [address]IJ: 06/19/2018 Secondary NOT GIVENUNK Diana Insurance:SELF PAY [facility] Number: Effective Repository Date:2018-06-14 06/19/2018 ANNE MARIE M Primary ANNE MARIE M CLAYTONIMDOB: [place] [id number] SR Insurance:CARESOURCEPo [id number], [place] Number: [facility] [address]Wxh: [id number] Repository Date:2018-06-14P O BOX (HP) 1017ATTN: [place] [address]UE: 06/19/2018 Secondary NOT GIVENUNK [place] Insurance:SELF PAY [facility] Number: Effective Repository Date:2018-06-19 06/13/2018 ANNE MARIE M Primary ANNE MARIE M KEIMDOB: [place] [id number] SR Insurance:CARESOURCEPo [id number] Number: [facility] [address]Vnm: [id number] Repository Date:2018-06-13P O BOX (HP) 2292ATTN: [facility]S [facility] [place] [address]NF: 06/13/2018 Secondary NOT GIVENUNK Diana Insurance:SELF PAY [facility] Number: Effective Repository Date:2018-06-13 05/01/2018 ANNE MARIE M Primary ANNE MARIE M KEIMDOB: [place] [id number] SR Insurance:CARESOURCEPo [id number] Number: [facility] [address]Cqz: [id number] Repository Date:2018-04-11P O BOX (HP) 0563ATTN: CLAIMS [facility] [address]ZO: 05/01/2018 Secondary NOT GIVENUNK Diana Insurance:SELF PAY [facility] Number: Effective Repository Date:2018-04-11 04/08/2018 ANNE MARIE M Primary ANNE MARIE M KEIMDOB: Diana [id number] SR Insurance:CARESOURCEPo [id number] Number: [facility] [address]Xce: [id number] Repository Date:2018-04-01P O BOX (HP) 8584ATTN: CLAIMS [facility] [address]TF: 04/08/2018 Secondary NOT GIVENUNK [place] Insurance:SELF PAY [facility] Number: Effective Repository Date:2018-04-01 04/07/2018 ANNE MARIE KEIMDOB: Primary ANNE MARIE KEIMDOB: Brad Segura [id number] Insurance:CARESOURCE [id number] [place] [address], [place]: [place] [id number]: Date:Plan Name: () 04/02/2018 ANNE MARIE M Primary ANNE MARIE M KEIMDOB: [place] [id number] SR Insurance:CARESOURCEPo [id number] Number: [facility] [address]Zoh: [id number] Repository Date:2018-04-02P O BOX () 8730ATTN: [place] [address]GH: 04/02/2018 Secondary NOT GIVENUNK [place] Insurance:SELF PAY [facility] Number: Effective Repository Date:2018-04-02 04/01/2018 ANNE MARIE M Primary ANNE MARIE M KEIMDOB: [place] [id number] SR Insurance:CARESOURCEPo [id number] Number: [facility] [address]Lri: [id number] Repository Date:2018-03-22P O BOX () 0303ATTN: [place] [address]WZ: 04/01/2018 Secondary NOT GIVENUNK [place] Insurance:SELF PAY [facility] Number: Effective Repository Date:2018-04-01 03/22/2018 ANNE MARIE M Primary ANNE MARIE M KEIMDOB: [place] [id number] SR Insurance:CARESOURCEPo [id number] Number: [facility] [address]Jyy: [id number] Repository Date:2018-03-20P O BOX () 4317ATTN: [place] [address]HG: 03/22/2018 Secondary NOT GIVENUNK [place] Insurance:SELF PAY [facility] Number: Effective Repository Date:2018-03-20 03/20/2018 ANNE MARIE M Primary ANNE MARIE MANNINGDOB: Diana [id number] SR Insurance:CARESOURCEPo [id number] Number: [facility] [address]Fxk: [id number] Repository Date:2018-01-31P O BOX (HP) 1668ATTN: [place] [address]EB: 03/20/2018 Secondary NOT GIVENUNK [place] Insurance:SELF PAY [facility] Number: Effective Repository Date:2018-03-20 02/07/2018 ANNE MARIE M Primary ANNE MARIE MANNINGDOB: Diana [id number] SR Insurance:CARESOURCEPo [id number] Number: [facility] [address]Vbt: [id number] Repository Date:2018-01-31P O BOX (AE) 4394ATTN: [place] [address]JL: 02/07/2018 Secondary NOT GIVENUNK [place] Insurance:SELF PAY [facility] Number: Effective Repository Date:2018-01-31 01/31/2018 ANNE MARIE M Primary ANNE MARIE MANNINGDOB: Diana [id number] SR Insurance:CARESOURCEPo [id number] Number: [facility] [address]Zln: [id number] Repository Date:2018-01-31P O BOX (GN) 7842ATTN: CLAIMS [facility] [address]BS: 01/31/2018 Secondary NOT GIVENUNK [place] Insurance:SELF PAY [facility] Number: Effective Repository Date:2018-01-31 01/31/2018 ANNE MARIE M Primary ANNE MARIE MANNINGDOB: [place] [id number] SR Insurance:CARESOURCEPo [id number] Number: [facility] [address]Owk: [id number] Repository Date:2017-11-26P O BOX (HP) 7041ATTN: [place] [address]LQ: 01/31/2018 Secondary NOT GIVENUNK Diana Insurance:SELF PAY [facility] Number: Effective Repository Date:2018-01-31 01/01/2018 ANNE MARIE M Primary ANNE MARIE M KEIMDOB: [place] [id number] SR Insurance:CARESOURCEPo [id number] Number: [facility] [address]Tcw: [id number] Repository Date:2018-01-01P O BOX (HP) 4130ATTN: [place] [address]KH: 01/01/2018 Secondary NOT GIVENUNK Diana Insurance:SELF PAY [facility] Number: Effective Repository Date:2018-01-01 11/26/2017 ANNE MARIE M Primary ANNE MARIE M KEIMDOB: Diana [id number] SR Insurance:CARESOURCEPo [id number] Number: [facility] [address]Imj: [id number] Repository Date:2017-11-26P O BOX (HP) 2130ATTN: [place] [address]CX: 11/26/2017 Secondary NOT GIVENUNK Diana Insurance:SELF PAY [facility] Number: Effective Repository Date:2017-11-26 11/22/2017 ANNE MARIE M Primary ANNE MARIE M KEIMDOB: Diana [id number] SR Insurance:CARESOURCEPo [id number] Number: [facility] [address]Hsx: [id number] Repository Date:2017-09-25P O BOX (IF) 2643ATTN: [place] [address]CC: 11/22/2017 Secondary NOT GIVENUNK [place] Insurance:SELF PAY [facility] Number: Effective Repository Date:2017-09-25 10/31/2017 ANNE MARIE M Primary NOT GIVENUNK Diana [id number] SR Insurance:[address] Number: [facility] [address]Egi: [id number] Repository Date:2017-09-19 O BOX () 3352ATTN: [place] [address]NE: 10/31/2017 Secondary NOT GIVENUNK [place] Insurance:SELF PAY [facility] Number: Effective Repository Date:2017-09-19 10/13/2017 ANNE MARIEEmanuel MANNINGDOB: Primary Anne Marieemanuel ManningDOB: Brad Segura [id number] [facility] [id number], Number: [address], [place] [id number]: Date:Plan Name:X () 10/13/2017 Secondary Anne Marie Radha ManningDOB: Brad Segura [facility] [id number] Number: 226[place] Repository [id number] Date:Plan Name:X7 09/26/2017 ANNE MARIE M Primary ANNE MARIE M NIGELDOB: Diana [id number] SR Insurance:CARESOURCEPo [id number] Number: [facility] [address]Zot: [id number] Repository Date:2017-09-19 O BOX () 7720ATTN: [place] [address]AN: 09/26/2017 Secondary NOT GIVENUNK [place] Insurance:SELF PAY [facility] Number: Effective Repository Date:2017-09-19 09/25/2017 ANNE MARIE M Primary Insurance:SELF NOT GIVENUNK [place] [id number] SR PAY [address], Number: [place] [address]Dpc: Date:2017-08-21 Repository () 09/19/2017 ANNE MARIE M Primary ANNE MARIE MANNINGDOB: [place] [id number] SR Insurance:CARESOURCEPo [id number] Number: [facility] [address]Vtr: [id number] Repository Date:2017-09-19P O BOX (HP) 8630ATTN: [place] [address]YL: 09/19/2017 Secondary NOT GIVENUNK Diana Insurance:SELF PAY [facility] Number: Effective Repository Date:2017-09-19 09/19/2017 ANNE MARIE M Primary ANNE MARIE MANNINGDOB: [place] [id number] SR Insurance:CARESOURCEPo [id number], [facility] Number: [id number] [facility] [address]Phj: 00Effective Repository Date:2017-09-12P O BOX (HP) 6215ATTN: [place] [address]AK: 09/19/2017 Secondary NOT GIVENUNK Diana Insurance:SELF PAY [facility] Number: Effective Repository Date:2017-09-17 08/29/2017 ANNE MARIE M Primary ANNE MARIE M NIGELDOB: Diana [id number] SR Insurance:CARESOURCEPo [id number], lic Number: [place] [address]Xob: Date:2017-08-29P O BOX Repository 8730ATTN: CLAIMS (HP) [place] [address]HV: 08/29/2017 Secondary NOT GIVENUNK [place] Insurance:SELF PAY [facility] Number: Effective Repository Date:2017-08-29
== END ==
PROVIDERS: Family Provider Family Medicine; PCP Family Medicine; Visit Provider Family Medicine
DX: E04.1 Nontoxic single thyroid nodule (principal); E04.2 Nontoxic multinodular goiter
CPT/HCPCS: 36415; 84439; 84443

== ENCOUNTER → 2018-09-16 11:47 | Outpatient (CLI) | payer MEDICAID, SELFPAY ==
[2018-09-16 16:11] LABS: CORTISOL SERUM < 0.50 ug/dL (3.09-22.40)
== END ==
PROVIDERS: Family Provider Family Medicine; PCP Family Medicine; Visit Provider Family Medicine
DX: E11.49 Type 2 diabetes mellitus with other diabetic neurological complication (principal); R63.5 Abnormal weight gain
CPT/HCPCS: 36415; 82533

== ENCOUNTER → 2018-09-24 10:50 | Outpatient (CLI) | payer MEDICAID, SELFPAY ==
--- NOTE | 2018-09-24 10:53 | US_ITS ---
STUDY: THYROID ULTRASOUND REASON FOR EXAM: Female, 37 years old. Difficulty swallowing. TECHNIQUE: Ultrasound evaluation of the thyroid was performed with real-time and static wolfe-scale imaging. COMPARISON: February 07, 2018. FINDINGS: RIGHT LOBE: The right lobe of the thyroid gland measures 5.3 x 1.9 x 1.8 cm. There is a homogeneous echotexture. 2 complex solid upper pole nodules measuring 1.1 x 1.1 x 0.9 cm and 0.4 x 0.3 x 0.2 cm. LEFT LOBE: The left lobe of the thyroid gland measures 5.0 x 1.9 x 1.9 cm. There is a homogeneous echotexture. Complex solid mid pole nodules measuring 1.2 x 1.0 x 0.6 cm , 0.6 x 0.6 x 0.4 cm and 0.5 x 0.4 x 0.4 cm. ISTHMUS: The isthmus measures 4 mm. . The regional lymph nodes are normal. US/Thyroid IMPRESSION: Thyromegaly with the thyroid gland slightly increased in size since the prior study. New 1.2 cm mid pole nodule left lobe. Otherwise bilateral thyroid nodules have remained stable. Electronically Signed: Go Dawkins MD at 5:09 EST , Service support ,
== END ==
PROVIDERS: Family Provider Family Medicine; PCP Family Medicine; Referring Provider Family Medicine; Visit Provider Family Medicine
DX: E01.0 Iodine-deficiency related diffuse (endemic) goiter (principal)
CPT/HCPCS: 76536

== ENCOUNTER → 2018-10-09 09:07 | Outpatient (CLI) | payer MEDICAID, SELFPAY ==
--- NOTE | 2018-10-09 09:10 | VDLE_ITS ---
Reason For Study: Swelling/Pain RIGHT LEFT GSV is normal. CFV is compressible, spontaneous, phasic, CFV is compressible, spontaneous, phasic, competent, and demonstrates normal competent and demonstrates normal augmentation. augmentation. FV is compressible, spontaneous, phasic, competent and demonstrates normal augmentation. POP V is compressible, spontaneous, phasic, competent and demonstrates normal augmentation. T/P Trunk is compressible. PTV is compressible. RT PerV is compressible. Procedure Exam performed in department. A preliminary report was called and/or faxed to [facility]. Interpretation Summary Deep veins of the right lower extremity are patent and compressible segmentally. There is no evidence of right lower extremity deep vein thrombosis. Valvular competence appears intact within the proximal deep venous system on the right . The right greater saphenous vein appears patent and compressible segmentally. Ordering Physician: Albert Cheatham Referring Physician: Albert Cheatham Performed By: Floresita Stephenson RVT and Student
== END ==
PROVIDERS: Family Provider Family Medicine; PCP Family Medicine; Referring Provider Family Medicine; Visit Provider Family Medicine
DX: M79.89 Other specified soft tissue disorders (principal); M79.604 Pain in right leg
CPT/HCPCS: 93971

== ENCOUNTER → 2019-02-12 17:32 | Outpatient (CLI) | payer MEDICAID, SELFPAY ==
--- NOTE | 2019-02-12 17:37 | CT_ITS ---
STUDY: CT CHEST WITH CONTRAST REASON FOR EXAM: Female, 38 years old. pain and cough RADIATION DOSAGE (If Supplied By Facility): DLP = ( 724.96 ) mGycm TECHNIQUE: Transaxial imaging was performed following intravenous administration of 100ML ml of Isovue 300 contrast material. Coronal and sagittal reformatted images were created. Individualized dose optimization techniques were used for this CT. COMPARISON: None FINDINGS: There are no pulmonary infiltrates or pleural effusions. There are no pulmonary nodules or masses. There is no pneumothorax. The heart and pericardium are within normal limits. There is no thoracic lymphadenopathy. There is no evidence of thoracic aortic aneurysm. Images through the upper abdomen demonstrate no significant abnormality. There are no destructive osseous lesions. CT/Chest WITH Contrast IMPRESSION: Unremarkable contrast-enhanced CT of the chest. Electronically Signed: Garth Conroy, at 21:16 EDT Tel , Service support ,
[2019-02-12 17:50] LABS: EGFR FINGERSTICK > 60.0000 mL/min (>60)
== END ==
PROVIDERS: Family Provider Family Medicine; PCP Family Medicine; Referring Provider Family Medicine; Visit Provider Family Medicine
DX: R06.00 Dyspnea, unspecified (principal); R05 Cough; R07.9 Chest pain, unspecified
CPT/HCPCS: 71260; Q9967

== ENCOUNTER 2019-03-14 10:30 | Outpatient (RCR) | payer MEDICAID, SELFPAY ==
--- NOTE | 2019-02-10 11:28 | HP.PTEVAL_ITS ---
Patient's Visit Information NEIDA MANNING is a 38 year old F referred to Physical Therapy by SHANTELLE Lindsey with a diagnosis of LUMBAR SPONDYLOSIS, RADICULOPATHY, DDD AND FACET ARTHROPATHY.. Date of Evaluation: 02/10/19 Physical Therapist: Ruchi Sigala, PT, Cert MDT - Visit Plan Frequency: 2-3x /Week Duration: 4-6 Weeks Plan: AQUATIC THERAPY FOR PAIN RELEIF, POSTURE CORRECTION/STRENGTHENING, INSTRUCTION IN APPROPRIATE BODY MECHANICS AND ACTIVITY MODIFICATIONS. DLS STARTING WITH A NEUTRAL SPINE PROGRESSING ROM TOLERATED. SARITA LE ROM, STRETCHING AND STRENGTHENING. HEP INSTRUCTION. - Subjective Findings: Work/Leisure: UNEMPLOYEED. Disability: YES - OCT 2018. FOR BACK. Present symptoms: SARITA LOW BACK PAIN. SARITA LE PAIN, NUMBNESS AND TINLGIN. Present since: 2007. Pain Scale: WORST 5/10, LEAST 4/10. Currently: 4/10. Commenced as a result of: NO APPARENT REASON. Symptoms at onset: BACK. Worse: STANDING, SITTING, LIFTING, WALKING, BENDING. Better: NOTHING. Disturbed sleep: YES. Previous history/Previous treatment: PHYSICAL THERAPY - NEVER HELPS, PAIN MEDICINE - SOMETIMES TAKES THE EDGE OFF, CHIROPRACTOR - DOESN'T REALLY HELP (LAST VISIT WAS ABOUT 2 MONTHS AGO). HAS HAD NUMEROUS CRISTINO'S. CAUDAL PENDING INSURANCE APPROVAL. Coughing/sneezing/straining: NEGATIVE. Gait: PAINFUL, SLOWER, LIMP ON LLE, DISTANCE LIMITED. Difficulty initiating urinatin: NO. Accidents: NO. Unexplained weight loss: NO. Imaging: NONE RECENT. ABOUT 4 YEARS AGO MRI - PARS DEFECT. PMH: NEUROPATHY, IDDM, SARCOIDOSIS, ACID REFLUX, H/O BLOOD CLOTS IN LEGS. Recent major surgery: NO. PLOF (Prior Level of Function): USE TO BE ABLE TO GO FISHING, WALK FOR EX/RECREATIONALLY AND TRAVEL BUT CAN'T NOW DUE TO BACK AND LEG PAIN. OTHER: CAT SCAN OF CHEST PENDING SUNDAY FOR DIFFICULTY BREATHING. - Objective Sitting/Standing Posture: POOR. Lordosis: REDUCED. Lateral shift: NO. Relevant shift: N/A. Active Correction of posture: WORSE. Other Observations: INDEP GAIT INTO PT WITHOUT ANY ASSISTIVE DEVICES AND NO LOB. DECREASED CADANCE AND INCREASED TRUNK FLEXION. PATIENT DECLINES ATTEMPT TO TRANSFER INDEP'LY FROM SIT TO STAND WITHOUT UE ASSIST. Motor deficit: SARITA LE WEAKNESS: HIPS 3+/5, KNEES 4-/5, ANKLES 5/5. Sensory deficit: DECREASED SARITA TOES. ROM deficit: TIGHT SARITA HIP FLEXORS, HS'S AND GASTROC SOLEUS COMPLEX'S. Reflexes: 2/3 SARITA LE'S. Dural Signs: POSITIVE SARITA LE'S. Lumbar mvmt loss: flex - LAZ. ext - LAZ. R SG - LAZ. L SG - LAZ. C/O INCREASED BACK AND LEG PAIN WITH MMT'ING, LUMBAR AND LE ROM TESTING THROUGHOUT. Core strength: POOR. Palpation: TENDERNESS THROUGHOUT LUMBAR REGION WITH LIGHT PALPATION. OTHER: PATIENT HAS A RASH ON ARMS AND LEGS - STATES SHE HAS HAD IT FOR ABOUT A YEAR AND THE DOCTORS THINK IT IS FROM HER MEDICATION. - Goals Goal 1:: DECREASE C/O LOW BACK AND SARITA LE SX'S. Goal Time Frame: 4-6 Weeks Goal 2:: IMPROVE PERSONAL CARE, LIFTING, WALKING, SITTING, STANDING, SLEEP, SOCIAL LIFE, TRAVEL AND HOMEMAKING FUNCTION Goal Time Frame: 4-6 Weeks Goal 3:: INSTRUCT IN PROPHYLAXIS Goal Time Frame: 4-6 Weeks - Rehabilitation Potential Rehabilitation Potential: Fair - Anticipated Interventions Patient/Client Instruction: Educate patient on: Condition, Plan of Care, Risk Factors, Benefits of Fitness Program For the Purpose of:: To improve self management Therapeutic Exercise to Include: Strength training, Body mechanics, Postural training, Flexibilty training, Gait and locomotor training, In an aquatic setting, Active ROM, Dynamic Lumbar Stabilization Comment: PATIENT HAS A POOL AT HOME For the Purpose of:: To decrease pain, To increase ROM, To improve muscle performance and motor function, To increase tolerance to activity/condition/position, To improve ability of physical actions for home/community/work/leisure, To improve gait and locomotor functions Thank you for the opportunity to evaluate your patient. For Medicare and Medicare HMO plans, please review the plan of care and approve it. It will need to be FAXED BACK to us at [phone] for Medicare purposes. For Medicare only, by signing this I certify the plan of care. Please let me know if there are questions or concerns regarding this plan of care. Physician Signature: Date:
--- NOTE | 2019-03-14 11:00 | HP.PTREVAL_ITS ---
Amairani Rodriguez, COSMETOLOGIST APPRENTICE-C, It has been my pleasure to treat NEIDA MANNING over the last 6 visits for LUMBAR SPONDYLOSIS, RADICULOPATHY, DDD AND FACET ARTHROPATHY.. Please see the progress note below for an update on the physical therapy plan of care! Subjective: PATIENT REPORTS SHE STILL HAS A RASH BUT IT IS GETTING BETTER ON ITS OWN. HAD CAT SCAN OF CHEST FOR SOB AND PATIENT REPORTS IT WAS NORMAL. ALSO REPORTS SHE HAD THE CAUDAL INJECTION FEBRUARY 26 2019 AND IT HELP HER LEGS SOME BUT NOT HER BACK PAIN. PATIENT REPORTS SHE HAS HAD TRANSPORTATION ISSUES WITH GETTING TO PT. PATIENT REPORTS INCREASED PAIN FOR A DAY OR TWO AFTER THE AQUATIC SESSIONS THAT SHE WAS ABLE TO ATTEND. PATIENT REPORTS SHE DOES NOT WANT TO TRY ANY MORE PT AT THIS TIME. PATIENT REPORTS SHE SEE'S DR. GORMAN AGAIN March AND SHE THINKS THEY ARE GOING TO DO AN MRI. PATIENT REPORTS ABOUT 60% IMPROVEMENT IN HER LEGS SINCE STARTING PT BUT SHE ATTRIBUTES THE IMPROVEMENT TO THE INJECTION. Objective/Function: THIS IS PATIENTS 6TH ATTENDED GHULAM'T SINCE HER INITIAL EVALUATION 02/10/19. SHE HAS HAD MULTIPLE MISSED GHULAM'TS. SHE HAS ATTENDED ABOUT 4 POOL GHULAM'TS IN THE LAST MONTH. UPON EXAM TODAY THERE ARE NO SIGNIFICANT CHANGES SINCE INITIAL EVAL INCLUDING OSWESTRY SCORE. Plan Plan: D/C DUE TO LACK OF PROGRESS AND PATIENT NOT WANTING TO DO ANYMORE PT AT THIS TIME. Goals Goal 1:: DECREASE C/O LOW BACK AND SARITA LE SX'S. Goal Time Frame: 4-6 Weeks Goal Progress: Not Progressing Goal 2:: IMPROVE PERSONAL CARE, LIFTING, WALKING, SITTING, STANDING, SLEEP, SOCIAL LIFE, TRAVEL AND HOMEMAKING FUNCTION Goal Time Frame: 4-6 Weeks Goal Progress: Not Progressing Goal 3:: INSTRUCT IN PROPHYLAXIS Goal Time Frame: 4-6 Weeks Goal Progress: Not Progressing Anticipated Interventions Patient/Client Instruction: Educate patient on: Condition, Plan of Care, Risk Factors, Benefits of Fitness Program For the Purpose of:: To improve self management Therapeutic Exercise to Include: Strength training, Body mechanics, Postural training, Flexibilty training, Gait and locomotor training, In an aquatic setting, Active ROM, Dynamic Lumbar Stabilization Comment: PATIENT HAS A POOL AT HOME For the Purpose of:: To decrease pain, To increase ROM, To improve muscle performance and motor function, To increase tolerance to activity/condition/position, To improve ability of physical actions for home/community/work/leisure, To improve gait and locomotor functions Please do not hesitate to contact me at [phone] by phone or Fax: if you have questions or concerns regarding this new plan of care! Sincerely, Ruchi Sigala, PT, Cert MDT
--- NOTE | 2019-05-14 17:37 | HP.PTDCSUM_ITS ---
HP - PT D/C Summary It has been my pleasure to treat NEIDA MANNING under orders from Amairani Rodriguez, SHANTELLE Chin, for the diagnosis of LUMBAR SPONDYLOSIS, RADICULOPATHY, DDD AND FACET ARTHROPATHY. for a total of 6 visit(s). Discharge Date: Please see the following information for a summary of their discharge status. - Subjective Subjective: PATIENT REPORTS SHE STILL HAS A RASH BUT IT IS GETTING BETTER ON ITS OWN. HAD CAT SCAN OF CHEST FOR SOB AND PATIENT REPORTS IT WAS NORMAL. ALSO REPORTS SHE HAD THE CAUDAL INJECTION FEBRUARY 26 2019 AND IT HELP HER LEGS SOME BUT NOT HER BACK PAIN. PATIENT REPORTS SHE HAS HAD TRANSPORTATION ISSUES WITH GETTING TO PT. PATIENT REPORTS INCREASED PAIN FOR A DAY OR TWO AFTER THE AQUATIC SESSIONS THAT SHE WAS ABLE TO ATTEND. PATIENT REPORTS SHE DOES NOT WANT TO TRY ANY MORE PT AT THIS TIME. PATIENT REPORTS SHE SEE'S DR. GORMAN AGAIN March AND SHE THINKS THEY ARE GOING TO DO AN MRI. PATIENT REPORTS ABOUT 60% IMPROVEMENT IN HER LEGS SINCE STARTING PT BUT SHE ATTRIBUTES THE IMPROVEMENT TO THE INJECTION. - Pain Lumbar Spine Pain Intensity (Out of 10): 6 BLEs Pain Intensity (Out of 10): 4 - Overall Improvement % Improvement: 60 - Objective Objective/Function: THIS IS PATIENTS 6TH ATTENDED GHULAM'T SINCE HER INITIAL EVALUATION 02/10/19. SHE HAS HAD MULTIPLE MISSED GHULAM'TS. SHE HAS ATTENDED ABOUT 4 POOL GHULAM'TS IN THE LAST MONTH. UPON EXAM TODAY THERE ARE NO SIGNIFICANT CHANGES SINCE INITIAL EVAL INCLUDING OSWESTRY SCORE. - Goals Goal 1:: DECREASE C/O LOW BACK AND SARITA LE SX'S. Goal Progress: Not Progressing Goal 2:: IMPROVE PERSONAL CARE, LIFTING, WALKING, SITTING, STANDING, SLEEP, SOCIAL LIFE, TRAVEL AND HOMEMAKING FUNCTION Goal Progress: Not Progressing Goal 3:: INSTRUCT IN PROPHYLAXIS Goal Progress: Not Progressing - Plan Plan: D/C DUE TO LACK OF PROGRESS AND PATIENT NOT WANTING TO DO ANYMORE PT AT THIS TIME. - D/C Information If there are questions or concerns regarding this patient's physical therapy, please feel free to call me at [phone]. Thank you for the referral of this patient. Sincerely, Ruchi Sigala, PT, Cert MDT
== END 2019-03-14 19:00 | disposition home or self-care (01) ==
LOC: PT 10:30
PROVIDERS: Family Provider Family Medicine; PCP Family Medicine; Referring Provider Nurse Practitioner Family; Visit Provider Nurse Practitioner Family
DX: M47.817 Spondylosis without myelopathy or radiculopathy, lumbosacral region (principal); M54.16 Radiculopathy, lumbar region; M51.36 Other intervertebral disc degeneration, lumbar region; M51.37 Other intervertebral disc degeneration, lumbosacral region; M46.96 Unspecified inflammatory spondylopathy, lumbar region
CPT/HCPCS: 97113; 97162; 97530

== ENCOUNTER → 2019-05-13 13:19 | Outpatient (CLI) | payer MEDICAID, SELFPAY ==
[2019-05-13 15:57] LABS: Microalbumin,Random Urine 52.1 mg/L (NO RANGE EST.); Microalbumin:Creatinine Ratio 22.9 mg/g CRE (<30 mg/g CRE)
[2019-05-16 12:37] LABS: H.Pylori Breath Test Negative (Negative)
== END ==
PROVIDERS: Family Provider Family Medicine; PCP Family Medicine; Visit Provider Family Medicine
DX: N39.0 Urinary tract infection, site not specified (principal); R10.9 Unspecified abdominal pain; E11.49 Type 2 diabetes mellitus with other diabetic neurological complication
CPT/HCPCS: 82043; 82570; 83013; 87086

== ENCOUNTER → 2019-05-19 10:29 | Outpatient (CLI) | payer MEDICAID, SELFPAY ==
--- NOTE | 2019-05-19 10:31 | US_ITS ---
STUDY: THYROID ULTRASOUND REASON FOR EXAM: Female, 38 years old. Multinodular goiter TECHNIQUE: Ultrasound evaluation of the thyroid was performed with real-time and static wolfe-scale imaging. COMPARISON: Prior study of 09/24/2018 FINDINGS: RIGHT LOBE: The right lobe of the thyroid gland measures 4.5 x 2.0 x 2.0 cm. There is a homogeneous echotexture. There is a complex cyst of the midpole measuring 1.1 x 1.0 x 0.7 cm. There is a well-defined hypoechoic nodule of the mid pole measuring 0.5 x 0.3 x 0.4 cm. LEFT LOBE: The left lobe of the thyroid gland measures 4.5 x 2.1 x 1.5 cm. There is a homogeneous echotexture. There is a hypoechoic nodule of the upper pole measuring 0.5 x 0.5 x 0.3 cm. There are 2 hypoechoic nodules of the midpole measuring 0.6 x 0.6 x 0.5 cm and 0.8 x 0.8 x 0.7 cm. ISTHMUS: The isthmus measures 4 mm . The regional lymph nodes are normal. US/Thyroid IMPRESSION: Bilateral thyroidal nodules. A midpole nodule of the left lower lobe has slightly decreased in size in the interval. The remaining nodules are stable in the interval. Follow-up bilateral ultrasound in one year is recommended to assess for stability. Electronically Signed: Benito Diallo MD at 17:08 EDT , Service support ,
== END ==
PROVIDERS: Family Provider Family Medicine; PCP Family Medicine; Referring Provider Family Medicine; Visit Provider Family Medicine
DX: E04.2 Nontoxic multinodular goiter (principal); E04.1 Nontoxic single thyroid nodule
CPT/HCPCS: 76536

== ENCOUNTER → 2019-05-30 12:08 | Outpatient (CLI) | payer MEDICAID, SELFPAY ==
--- NOTE | 2019-05-30 12:25 | RAD_ITS ---
HISTORY: LOWERE SPINE PAIN COMPARISON: None FINDINGS: # of images incl. paperwork: 3 XR Spine Lumbar 2 or 3 Views: Normal anatomic variability 6 nonrib-bearing lumbar vertebral bodies. Lumbar vertebral bodies are mostly normal in height. There is some minimal wedging to the T12 and L1 vertebral bodies. A few Schmorl's nodes are present.. Lumbar disc spaces are well maintained. No acute lumbar spine fracture or subluxation. No significant degenerative change. RAD/Lumbar Spine 2 or 3 Views IMPRESSION: No acute lumbar spine fracture or subluxation. at 0358 Reported and signed by: Luis Miguel Castillo MD Electronically Signed: Luis Miguel Castillo MD at 3:57 EDT Tel , Service support ,
--- NOTE | 2019-05-30 12:25 | RAD_ITS ---
HISTORY: NECK PAIN COMPARISON: None FINDINGS: # of images incl. paperwork: 5 XR Spine Cervical 2 or 3 Views: 3 views of the cervical spine were obtained. All 7 cervical vertebral bodies are identified. No acute cervical spine fracture or subluxation. Normal cervical spine alignment. Odontoid is intact. No significant degenerative change. RAD/Cerv Spine 2 or 3 Views IMPRESSION: No acute cervical spine fracture or subluxation. at 0405 Reported and signed by: Luis Miguel Castillo MD Electronically Signed: Luis Miguel Castillo MD at 4:04 EDT Tel , Service support ,
== END ==
PROVIDERS: Family Provider Family Medicine; PCP Family Medicine; Referring Provider Nurse Practitioner Family; Visit Provider Nurse Practitioner Family
DX: M46.96 Unspecified inflammatory spondylopathy, lumbar region (principal); M51.37 Other intervertebral disc degeneration, lumbosacral region; M54.16 Radiculopathy, lumbar region; M47.817 Spondylosis without myelopathy or radiculopathy, lumbosacral region; M54.2 Cervicalgia
CPT/HCPCS: 72040; 72100

== ENCOUNTER 2019-05-30 21:28 | Emergency (ER) | payer MEDICAID, SELFPAY ==
[2019-05-30 21:29] VITALS: BP 144/84; PULSE 117; RESP 15; TEMP 36.8; O2SAT 98; BMI 38.3
[2019-05-30 21:35] LABS: Bedside Glucose 263 mg/dL (70-110)
--- NOTE | 2019-05-30 21:49 | ED.RN ---
PT WAS EATING CHICKEN NUGGETS, FRIES, AND A MILK SHAKE WHILE IN THE LOBBY.
--- NOTE | 2019-05-30 22:35 | EKG12_ITS ---
Test Reason : DYSRHYTHMIA Blood Pressure : / mmHG Vent. Rate : 097 BPM Atrial Rate : 097 BPM P-R Int : 144 ms QRS Dur : 084 ms QT Int : 358 ms P-R-T Axes : 046 035 038 degrees QTc Int : 454 ms Normal sinus rhythm Normal ECG Confirmed by LEYDA LAW, PEMA ([id number]), communications editor RODRICK CANALES ([id number]) on 06/02/2019 8:55:14 AM Referred By: Amairani Rodriguez Confirmed By:PEMA CRABTREE MD
--- NOTE | 2019-05-30 22:37 | ED.DCSUM_ITS ---
History of Present Illness Chief Complaint: Dizziness Narrative: This patient is a 38-year-old female who presents with dizziness. She describes this as near syncope. This is been going on for 1 month. Her symptoms have not worsened and she has not developed any new symptoms but she has not been improving either. She also reports frequent vomiting sometimes daily for even longer than a month. She states sometimes her chest bothers her. However she has no chest pain currently. She denies abdominal pain. She denies diarrhea or fever. She has fallen multiple times of the last month and states she felt like she was going to fall last night but did not. Past Medical History - Allergies and Home Meds Allergies/Adverse Reactions: Allergies tramadol HCl [From [facility]] Adverse Reaction (Verified 05/30/19 21:35) Vomiting Primary Care Physician: Albert Cheatham DO [Primary Care Provider] - Prior records reviewed: Yes Past Medical History: - - Diabetes, anxiety Surgical History: cholecystectomy, Tubal ligation, Endometrial ablation Smoking Status: Never smoker Review of Systems All systems negative except as indicated General: Denies: Fever Cardiovascular: Reports: Chest pain, - - Near syncope Respiratory: Reports: Cough. Denies: Dyspnea Gastrointestinal: Reports: Nausea, Vomiting. Denies: Abdominal pain Neurological: Reports: Weakness Physical Exam Vital Signs/Narrative: Vital Signs Temp Pulse Resp BP Pulse Ox 05/30/19 21:29 98.2 F 117 H 15 144/84 H 98 Inital Vital Signs reviewed: Yes General: Well nourished Head: Normocephalic Eyes: EOMI ENT: Moist mucous membranes Neck: Supple Cardiovascular: - - Heart is regular tachycardia I do not appreciate murmur, gallop, rub Respiratory: No distress, CTA bilaterally Abdomen: Soft Skin: Normal color Neurological: Alert Psychological: Normal affect Diagnostic/Tx/Re-eval Impressions Chest X-Ray 05/30/19 22:40 IMPRESSION: Normal. at 2300 Reported and signed by: Luis Miguel Castillo MD Electronically Signed: Luis Miguel Castillo MD at 22:59 EDT Tel , Service support , 05/30/19 22:40 CXR [Chest 1 View (Portable)] [RAD] Stat Laboratory Results 05/30/19 05/30/19 05/30/19 21:32 22:47 22:47 WBC 8.4 RBC 4.60 Hgb 11.7 L Hct 36.8 L MCV 80.0 L MCH 25.4 L MCHC 31.8 L RDW Std Deviation 41.4 RDW Coeff of Karina 14.4 Plt Count 322 MPV 10.1 Immature Gran % (Auto) 0.600 Neut % (Auto) 57.6 Lymph % (Auto) 30.8 [place] % (Auto) 8.5 Eos % (Auto) 1.9 Baso % (Auto) 0.6 Absolute Neuts (auto) 4.8 Absolute Lymphs (auto) 2.59 Nucleated RBC % 0 Sodium 134 L Potassium 4.0 Chloride 102 Carbon Dioxide 25.0 Anion Gap 7 BUN 8 Creatinine 0.81 Estim Creat Clear Calc 92.47 Est GFR (MDRD) Af Amer 102 Est GFR (MDRD) Non-Af 84 BUN/Creatinine Ratio 9.9 L Glucose 344 H Calcium 8.7 Total Bilirubin 0.20 AST 5 L ALT 15 Alkaline Phosphatase 119 H Troponin I < 0.015 Total Protein 7.6 Albumin 3.0 L Globulin 4.6 H Albumin/Globulin Ratio 0.7 L Lipase 137 Urine Color Urine Clarity Urine pH Ur Specific [place] Urine Protein Urine Glucose (UA) Urine Ketones Urine Occult Blood Urine Nitrite Urine Bilirubin Urine Urobilinogen Ur Leukocyte Esterase Urine RBC Urine WBC Ur Squamous Epith Cells Urine Bacteria Urine Mucus POC Glucose 263 H 05/31/19 00:20 WBC RBC Hgb Hct MCV MCH MCHC RDW Std Deviation RDW Coeff of Karina Plt Count MPV Immature Gran % (Auto) Neut % (Auto) Lymph % (Auto) [place] % (Auto) Eos % (Auto) Baso % (Auto) Absolute Neuts (auto) Absolute Lymphs (auto) Nucleated RBC % Sodium Potassium Chloride Carbon Dioxide Anion Gap BUN Creatinine Estim Creat Clear Calc Est GFR (MDRD) Af Amer Est GFR (MDRD) Non-Af BUN/Creatinine Ratio Glucose Calcium Total Bilirubin AST ALT Alkaline Phosphatase Troponin I Total Protein Albumin Globulin Albumin/Globulin Ratio Lipase Urine Color Yellow Urine Clarity Sl. Cloudy Urine pH 6.0 Ur Specific [place] 1.015 Urine Protein Negative Urine Glucose (UA) 1000 H Urine Ketones Negative Urine Occult Blood Negative Urine Nitrite Negative Urine Bilirubin Negative Urine Urobilinogen Normal Ur Leukocyte Esterase 500 H Urine RBC 0 SEEN Urine WBC 10-25 SEEN Ur Squamous Epith Cells 0-5 SEEN Urine Bacteria RARE Urine Mucus 0 SEEN POC Glucose - Medical Decision Making Work-up as above. Serum laboratory studies are unremarkable. UA consistent with possible cystitis. Patient's orthostatic vital signs were positive. She was given 2 L of IV fluid. On reevaluation she feels better but complains of feeling anxious was given Vistaril. She will be treated with Bactrim although she states she cannot swallow pills so she was given suspension. At this point I do not see an indication for inpatient treatment. Her blood pressure is normal. She is only tachycardic on standing with normal heart rate at rest. She does not have leukocytosis. She does not appear septic. She does understand return for new or worsening symptoms. All questions answered bedside. Patient agreeable to plan was discharged home. ED Disposition - Plan for ED Patient: Disposition: Home or Assisted Living Diagnosis: UTI (urinary tract infection), Orthostatic dizziness Instructions: HYPOTENSION, Orthostatic, DEHYDRATION (6y-Adult), Understanding Urinary Tract Infections (UTIs) Prescriptions: Smz/Tpm Suspension [Bactrim Suspension 800-160mg/20ml] 20 ml PO BID #100 ml Prescription Printed Referrals: Albert Cheatham DO [Primary Care Provider] -
--- NOTE | 2019-05-30 22:40 | RAD_ITS ---
HISTORY: INCREASED DIZZINESS, WEAKNESS, AND UNEASY FEELING EXAM: XR Chest 1 View: COMPARISON: September 04, 2016 FINDINGS: # of images incl. paperwork: 1 Lungs are clear. Heart is not enlarged. Bones are normal. Pulmonary vascularity is distinct. No effusions. RAD/Chest 1 View (Portable) IMPRESSION: Normal. at 2300 Reported and signed by: Luis Miguel Castillo MD Electronically Signed: Luis Miguel Castillo MD at 22:59 EDT Tel , Service support ,
[2019-05-30 23:03] LABS: Absolute Lymphocyte Count 2.59 X10^3/uL (0.83-4.51); Absolute Neutrophil Count 4.8 X10^3/uL (2.0-7.7); Basophil# 0.05 X10^3/uL; Basophil% 0.6 % (0-1); Eosinophil# 0.16 X10^3/uL; Eosinophils% 1.9 % (0-5); Hematocrit 36.8 % (37-47); Hemoglobin 11.7 g/dL (12.0-15.0); Lymphocyte # 2.59 X10^3/ul (4.0); Lymphocyte % 30.8 % (19-41); Mean Corp Hgb Conc 31.8 g/dL (32-36); Mean Corpuscular Hgb 25.4 pg (27.0-32.0); Mean Platelet Vol. 10.1 fl (6.2-12.0); Monocyte# 0.71 X10^3/uL; Monocyte% 8.5 % (0-10); NRBC Flagged by Analyzer 0 % (0-5); Neutrophil # 4.84 X10^3/uL (2.7-7.7); Neutrophil % 57.6 % (47-70); Platelet Count 322 K/mm3 (150-450); RBC Distribution Width CV 14.4 % (11.6-14.6); RBC Distribution Width SD 41.4 fl (35.1-43.9); White Blood Count 8.4 K/mm3 (4.4-11.0)
[2019-05-30 23:15] LABS: ALB/GLOB Ratio 0.7 RATIO (0.9-2.4); AST(SGOT) 5 U/L (15-37); Alanine Aminotransfer ALT/SGPT 15 U/L (13-56); Alkaline Phosphatase 119 U/L (45-117); Anion Gap 7 (5-15); BUN 8 mg/dL (7-18); BUN/Creat Ratio 9.9 RATIO (10-20); Calcium,Total 8.7 mg/dL (8.5-10.1); Chloride 102 mmol/L (98-107); Creatinine, Serum 0.81 mg/dL (0.55-1.02); EST Glomerular Filtration Rate 84 mL/min (>60); Est Glom Filt Rate - Afr Amer 102 mL/min (>60); Estimated Creatinine Clearance 92.47 ml/min; Globulin 4.6 g/dL (2.2-4.2); Glucose 344 mg/dL (74-106); Lipase 137 U/L (73-393); Protein, Total 7.6 g/dL (6.4-8.2); Sodium Level 134 mmol/L (136-145)
[2019-05-30] MEDS: 0.9% Normal Saline 1,000 ML 999 ML IV (23:22)
[2019-05-31 00:15] VITALS: BP 125/80; BP 127/77; BP 140/106; PULSE 111; PULSE 87; PULSE 97
[2019-05-31 00:24] LABS: Mucous, Urine 0 SEEN /hpf (<or=2+); Red Blood Cells-Urine 0 SEEN /hpf (0-5)
[2019-05-31 00:26] LABS: Color, Urine Yellow (Yellow); Glucose, Dipstick 1000 mg/dl (Normal); Ketone-Dipstick Negative (Negative); Leukocyte Esterase-Dipstick 500 /ul (Negative); Nitrite-Dipstick Negative (Negative); Occult Blood-Urine Negative /ul (Negative); Protein-Dipstick Negative (Negative); Specific Gravity, Urine 1.015 (1.002-1.030); Urine Bilirubin Dipstick Negative (Negative); Urine Clarity Sl. Cloudy (Clear); Urine Urobilinogen Normal (Normal)
[2019-05-31 00:32] LABS: Bacteria RARE /hpf (None Seen); Squamous Epithelial Cells - UA 0-5 SEEN /hpf (5-10); White Blood Cells 10-25 SEEN /hpf (0-5)
[2019-05-31] MEDS: SMZ/TPM Suspension 20 ML PO (00:54)
[2019-05-31] MEDS: hydrOXYzine PAM 25 MG Capsule PO (00:54)
[2019-05-31] MEDS: 0.9% Normal Saline 1,000 ML 999 ML IV (00:54)
[2019-05-31 01:39] VITALS: BP 138/91; PULSE 91; RESP 16
== END 2019-05-31 01:40 | disposition home or self-care (01) ==
PROVIDERS: Emergency Provider Emergency Medicine; Family Provider Family Medicine; PCP Family Medicine
DX: N39.0 Urinary tract infection, site not specified (principal); I95.1 Orthostatic hypotension; E11.9 Type 2 diabetes mellitus without complications; F41.9 Anxiety disorder, unspecified; Z79.4 Long term (current) use of insulin; Z79.899 Other long term (current) drug therapy; M46.96 Unspecified inflammatory spondylopathy, lumbar region; M51.37 Other intervertebral disc degeneration, lumbosacral region; M54.16 Radiculopathy, lumbar region; M47.817 Spondylosis without myelopathy or radiculopathy, lumbosacral region; M54.2 Cervicalgia
CPT/HCPCS: 71045; 72040; 72100; 80053; 81001; 82962; 83690; 84484; 85025; 93005; 96360; 96361; 99285; J7030

== ENCOUNTER 2019-06-11 11:55 | Observation (INO) | payer MEDICAID, SELFPAY ==
[2019-06-11 11:56] VITALS: BP 142/96; PULSE 109; RESP 16; TEMP 36.4; O2SAT 98; BMI 38.0
--- NOTE | 2019-06-11 12:05 | CT_ITS ---
STUDY: CT ABDOMEN AND PELVIS WITHOUT CONTRAST REASON FOR EXAM: Female, 38 years old. 2 day history of left-sided abdominal pain. RADIATION DOSAGE (If Supplied By Facility): CTDIvol = ( 21.93 ) mGy, DLP = ( 1183.22 ) mGycm TECHNIQUE: Transaxial images were obtained from the dome of the diaphragm to the symphysis pubis without oral contrast, and without intravenous contrast. Sagittal and coronal images were reconstructed. Individualized dose optimization techniques were used for this CT. COMPARISON: Comparison is made with prior study dated March 13, 2017. FINDINGS: The visualized lung bases are unremarkable. The visualized portions of the heart are within normal limits. Normal liver. There are surgical clips in the gallbladder fossa consistent with a prior cholecystectomy. Normal spleen. Normal pancreas. Normal bilateral adrenal glands. Punctate calculus in the mid lower pole of the right kidney. Normal left kidney. Normal visualized stomach. Normal small intestine. Normal colon. The appendix is visualized and appears normal. There is scattered atherosclerotic calcification of the abdominal aorta, without a demonstrated aneurysm. Normal inferior vena cava. Normal retroperitoneum. Normal urinary bladder. There is absence of the uterus consistent with a prior hysterectomy. Small benign-appearing bilateral inguinal lymph nodes. There is a small umbilical hernia containing fat. Spondylolysis of the pars intraarticularis of the L5 vertebra without spondylolisthesis. CT/Abdomen/Pelvis without Cont IMPRESSION: No acute abnormality is seen. Electronically Signed: Santhosh Wilkins, at 13:04 EDT , Service support ,
[2019-06-11] MEDS: 0.9% Normal Saline 1,000 ML 125 ML IV ×2 (12:24→20:40)
[2019-06-11] MEDS: Morphine 4 MG/ML Syringe IV ×2 (12:24→15:45)
[2019-06-11] MEDS: Ketorolac 30 MG/ML Syringe IV (12:25)
[2019-06-11] MEDS: Ondansetron 4 MG/2 ML Vial IV (12:25)
[2019-06-11 12:26] LABS: Absolute Neutrophil Count 7.6 X10^3/uL (2.0-7.7); Basophil# 0.05 X10^3/uL; Basophil% 0.5 % (0-1); Eosinophil# 0.08 X10^3/uL; Eosinophils% 0.7 % (0-5); Hematocrit 38.1 % (37-47); Hemoglobin 12.5 g/dL (12.0-15.0); Lymphocyte % 20.6 % (19-41); Mean Corp Hgb Conc 32.8 g/dL (32-36); Mean Corpuscular Hgb 26.2 pg (27.0-32.0); Mean Corpuscular Volume 79.7 fL (81-99); Mean Platelet Vol. 9.9 fl (6.2-12.0); Monocyte# 0.69 X10^3/uL; Monocyte% 6.5 % (0-10); NRBC Flagged by Analyzer 0 % (0-5); Platelet Count 449 K/mm3 (150-450); RBC Distribution Width CV 13.8 % (11.6-14.6); RBC Distribution Width SD 39.5 fl (35.1-43.9); Red Blood Count 4.78 M/mm3 (4.2-5.4); White Blood Count 10.7 K/mm3 (4.4-11.0)
[2019-06-11 12:40] LABS: Anion Gap 11 (5-15); BUN 7 mg/dL (7-18); BUN/Creat Ratio 9.3 RATIO (10-20); Chloride 104 mmol/L (98-107); Creatinine, Serum 0.76 mg/dL (0.55-1.02); EST Glomerular Filtration Rate 91 mL/min (>60); Est Glom Filt Rate - Afr Amer 110 mL/min (>60); Estimated Creatinine Clearance 98.56 ml/min; Glucose 162 mg/dL (74-106); Potassium 4.3 mmol/L (3.5-5.1); Sodium Level 138 mmol/L (136-145)
[2019-06-11 13:26] LABS: Squamous Epithelial Cells - UA 0 SEEN /hpf (5-10)
[2019-06-11 13:32] LABS: Color, Urine Yellow (Yellow); Glucose, Dipstick Normal (Normal); Ketone-Dipstick 5 mg/dl (Negative); Leukocyte Esterase-Dipstick 500 /ul (Negative); Nitrite-Dipstick Positive (Negative); Occult Blood-Urine 10 /ul (Negative); Protein-Dipstick 30 mg/dl (Negative); Urine Clarity Cloudy (Clear); Urine Urobilinogen 1 mg/dl (Normal)
[2019-06-11 13:45] LABS: Urine Bilirubin Dipstick 1 mg/dL (Negative)
[2019-06-11 13:47] LABS: Red Blood Cells-Urine 5-10 SEEN /hpf (0-5); White Blood Cells 50-100 SEEN /hpf (0-5)
[2019-06-11 13:48] LABS: Bacteria 2+ /hpf (None Seen); Mucous, Urine 1+ /hpf (<or=2+)
--- NOTE | 2019-06-11 14:04 | ED.VISSUMM ---
- ER Visit Summary Date of Service: 06/11/19 Chief Complaint: [Abdominal pain] History of Present Illness: The patient is a 38 F [presents to the emergency department complaint of abdominal pain x3 days. Patient complains of nausea and vomiting today. She rates her pain an 8 out of 10. She denies urinary frequency or hematuria. She does state that she does get frequent urinary tract infections and was just on Bactrim last week. Patient has history of diabetes as well as anxiety and depression. She denies any fevers at home.] Physical Examination: HEENT-PERRLA, EOMI. Cranial nerves II through XII grossly intact. TMs clear. Mucous membranes moist. No adenopathy. Cardiovascular-regular rate and rhythm without murmur or ectopy Lungs-clear to auscultation, chest wall stable without crepitus or subcu emphysema Abdomen-normoactive bowel sounds, soft. Patient has tenderness over left lower quadrant with guarding. Patient has CVA tenderness on the left. There is no rebound, rigidity, or peritoneal signs Extremities-intact ?4, normal range of motion, normal pulses, atraumatic] Test Results: [CBC with differential obtained showed a white count of 10.7, hemoglobin 12, hematocrit 38, platelets 449. Chemistries unremarkable. Urinalysis showed positive nitrites as well as 50-100 WBCs and +2 bacteria.] Emergency Department Course and Treatment: [Urine culture was sent patient was started on Rocephin 1 g IV. Given morphine and Zofran] Treatment Plan: [Admit for pain control and antibiotics Disposition: [Admit] Impression: [Pyelonephritis This note was generated with [employer] dictation software. It may contain incorrect words, spelling, and punctuation that were not noted in review of the chart prior to signing ED Disposition - Plan for ED Patient: Referrals: Albert Cheatham DO [Primary Care Provider] -
--- NOTE | 2019-06-11 14:08 | NURSING ---
Clean catch urine orange color. Pt said she took a Pyridium this AM.
[2019-06-11] MEDS: Ceftriaxone 1 GM/50 ML BAG IV (14:18)
--- NOTE | 2019-06-11 14:19 | NURSING ---
MED SURG OBS TERELETSKY PYELONEPHRITIS
[2019-06-11 14:21] VITALS: BP 116/76
[2019-06-11 14:28] VITALS: BMI 38.1
[2019-06-11 14:45] VITALS: BMI 38.0
[2019-06-11 15:18] VITALS: BP 118/65; PULSE 85; RESP 18; TEMP 36.7; O2SAT 94
--- NOTE | 2019-06-11 16:32 | HP.PCM_ITS ---
Problem List (1) Hypothyroidism (acquired) Status: Chronic Comment: Thyroid ulrasound indicate additional nodules have been detected. I have sent results to [place] for review and I have ask patient to make appointment. (2) Upper airway cough syndrome Status: Chronic (3) Tobacco dependence in remission Status: Resolved (4) Allergic rhinitis Status: Chronic (5) history of sinusplasty Status: Resolved (6) History of tubal ligation Status: Resolved (7) History of total hysterectomy Status: Resolved (8) History of cholecystectomy Status: Resolved (9) Chronic ethmoidal sinusitis Status: Chronic (10) Depression Status: Chronic (11) Rosacea Status: Chronic (12) Anxiety Status: Chronic (13) Morbid obesity Status: Chronic (14) Atopic dermatitis Status: Chronic (15) Chronic mastoiditis Status: Chronic (16) Myalgia and myositis Status: Chronic (17) Peripheral edema Status: Chronic (18) SIERRA (obstructive sleep apnea) Status: Chronic (19) Restless legs syndrome Status: Chronic (20) Chronic back pain Status: Chronic (21) Acute DVT (deep venous thrombosis) Status: Resolved (22) Hyperlipidemia Status: Chronic (23) Sarcoidosis Status: Suspected (24) Asthma Status: Chronic (25) GERD (gastroesophageal reflux disease) Status: Chronic (26) DM type 2 (diabetes mellitus, type 2) Status: Chronic Comment: Dx : age 16 Last exacerbation : DKA : 2014 CGM interpretation noted average BG of 138 for the period of use after educated on diet, insulin and given a sliding scale. Patient has done very well since using the kym and continues to do so. I did lower her insulin sliding scale at 3 days to avoid low BG during the course of the test as the low BG may have been creating rebound high BG. (27) Peripheral neuropathy Status: Chronic History of Present Illness Date of Admission: 06/11/19 Chief Complaint: Left pelvic pain, left flank pain, recurrent UTI. The patient is a 38 year old F who presents emergency room due to left pelvic pain and left flank pain. She has a history of recurrent UTI. She states most recently she presented to the emergency room approximately 2 weeks ago and was placed on Bactrim. She states each time she completes an antibiotic her symptoms continue shortly after. She denies dysuria, urinary frequency or foul- smelling urine. Denies fever, chills. Complains of associated nausea, vomiting. She reports over the past year her UTIs have increased significantly in frequency. She has a past medical history of type 2 diabetes mellitus with peripheral neuropathy, GERD, restless leg syndrome, anxiety, depression, asthma, hyperlipidemia, SIERRA, morbid obesity, hypothyroidism. Past Medical History Past Medical History (Chronic Problems): Chronic Problems (Last Reviewed 07/08/18 @ 08:05 by Joi Daily) Hypothyroidism (acquired) (Chronic) Thyroid ulrasound indicate additional nodules have been detected. I have sent results to [facility] for review and I have ask patient to make appointment. Upper airway cough syndrome (Chronic) Allergic rhinitis (Chronic) Chronic ethmoidal sinusitis (Chronic) Depression (Chronic) Rosacea (Chronic) Anxiety (Chronic) Morbid obesity (Chronic) Atopic dermatitis (Chronic) Chronic mastoiditis (Chronic) Myalgia and myositis (Chronic) Peripheral edema (Chronic) SIERRA (obstructive sleep apnea) (Chronic) Restless legs syndrome (Chronic) Chronic back pain (Chronic) Hyperlipidemia (Chronic) Asthma (Chronic) GERD (gastroesophageal reflux disease) (Chronic) DM type 2 (diabetes mellitus, type 2) (Chronic) Dx : age 16 Last exacerbation : DKA : 2014 CGM interpretation noted average BG of 138 for the period of use after educated on diet, insulin and given a sliding scale. Patient has done very well since using the kym and continues to do so. I did lower her insulin sliding scale at 3 days to avoid low BG during the course of the test as the low BG may have been creating rebound high BG. Peripheral neuropathy (Chronic) Medical History: Medical History (Last Reviewed 07/08/18 @ 08:05 by Joi Daily) Chronic ethmoidal sinusitis (Chronic) J32.2 Chronic cough (Chronic) R05 Depression (Chronic) F32.9 Rosacea (Chronic) L71.9 Anxiety (Chronic) F41.9 Morbid obesity (Chronic) E66.01 Atopic dermatitis (Chronic) L20.9 Chronic mastoiditis (Chronic) H70.10 Myalgia and myositis (Chronic) Peripheral edema (Chronic) R60.9 SIERRA (obstructive sleep apnea) (Chronic) G47.33 Restless legs syndrome (Chronic) G25.81 Chronic back pain (Chronic) M54.9, G89.29 Acute DVT (deep venous thrombosis) (Resolved) I82.409 Hyperlipidemia (Chronic) E78.5 Sarcoidosis (Suspected) D86.9 Asthma (Chronic) J45.909 History of depression (Chronic) Z86.59 GERD (gastroesophageal reflux disease) (Chronic) K21.9 DM type 2 (diabetes mellitus, type 2) (Chronic) E11.9 Dx : age 16 Last exacerbation : DKA : 2013 CGM interpretation noted average BG of 138 for the period of use after educated on diet, insulin and given a sliding scale. Patient has done very well since using the kym and continues to do so. I did lower her insulin sliding scale at 3 days to avoid low BG during the course of the test as the low BG may have been creating rebound high BG. Peripheral neuropathy (Chronic) G62.9 Arthritis M19.90 Bone fracture T14.8XXA Recurrent UTI N39.0 Seasonal allergies J30.2 Allergies tramadol HCl [From [facility]] Adverse Reaction (Verified 06/11/19 11:56) Vomiting Home Medications: Ambulatory Orders Medication Instructions Recorded Albuterol Inhaler [Ventolin Hfa] 1 - 2 puff INHALATION Q6H PRN PRN 14 Tizanidine HCl 4 mg PO TID 01/27/15 Oxycodone HCl/Acetaminophen 1 tab PO Q6H PRN PRN #12 tab 02/28/15 [Percocet 5/325] ALPRAZolam [Xanax] 0.5 mg PO PRN PRN 02/11/17 citalopram 40 mg tablet 40 mg PO DAILY tab 01/31/18 insulin glargine (U-100) 100 50 unit SC BID ml 01/31/18 unit/mL (3 mL) subcutaneous pen liraglutide 0.6 mg/0.1 mL (18 mg/3 1.8 mg SC DAILY ml 01/31/18 mL) subcutaneous pen injector pantoprazole 40 mg tablet,delayed 40 mg PO BID 01/31/18 release pramipexole 1 mg tablet 1 mg PO BID tab 01/31/18 Hydroxyzine Pamoate [Vistaril] 50 mg PO TID 06/11/19 Insulin Aspart [Novolog Flexpen 0 units SUBCUT TIDCM 06/11/19 ([facility])] Oxcarbazepine [Trileptal] 300 mg PO BID 06/11/19 Pregabalin 100 mg PO TID 06/11/19 Trazodone HCl 50 - 200 mg PO QHS 06/11/19 Surgical History: Surgical History (Last Reviewed 07/08/18 @ 08:05 by Joi Daily) history of sinusplasty (Resolved) History of tubal ligation (Resolved) Z98.51 History of total hysterectomy (Resolved) Z98.890, Z90.710 History of cholecystectomy (Resolved) Z98.890, Z90.49 lymph node removal Surgical History: - - Hysterectomy, lymph node removal neck, cholecystectomy, sinus plasty. 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 Smoking Status: Former smoker Alcohol: None Drugs: None - *Family History Maternal Family History: Family History (Last Reviewed 06/11/19 @ 16:44 by IAIN Shaw) Father Diabetes Asthma Brother Asthma Unknown Asthma Arthritis Diabetes Heart disease Hypertension Thyroid disorder History Items: Hypertension Paternal Family History: Family History (Last Reviewed 06/11/19 @ 16:44 by IAIN Shaw) Father Diabetes Asthma Brother Asthma Unknown Asthma Arthritis Diabetes Heart disease Hypertension Thyroid disorder History Items: Diabetes Review of Systems Constitutional: Denies: Chills, Fever, Weight Change HEENT: Denies: Head Aches, Sinus Congestion, Sinus Drainage Cardiovascular: Denies: Chest Pain, Edema, Palpitations, Syncope Respiratory: Denies: Cough, Shortness of breath at rest, Sputum production Gastrointestinal: Reports: Abdominal Pain, Nausea, Vomiting. Denies: Constipation, Diarrhea Genitourinary: Denies: Dysuria, Hematuria, Incontinence, Retention, Urgency Musculoskeletal: Denies: Joint Pain, Joint Tenderness Skin: Denies: Rash, Wounds Neurological: Denies: Numbness, Tingling, Focal weakness Psychiatric: Reports: Anxiety, Depression. Denies: Homicidal Ideations, Suicidal Ideations Hematologic/ Lymphatic: Denies: Easy Bruising, Easy Bleeding VTE Information - Inpt Only VTE Present on Admission: No VTE Mechan Device Prophylaxis: None VTE Pharm Prophylaxis ordered?: No Reason prophylaxis not ordered:: Treatment Not Indicated - Physical Exam General: Alert, Oriented x3, Cooperative HEENT: Atraumatic, PERRLA, EOMI, Normocephalic Neck: Supple, No JVD, Negative Carotid Bruits Lungs: Clear to auscultation, Normal air movement Cardiovascular: Regular rate, Regular Rhythm, Normal S1, Normal S2, No murmurs Abdomen: Bowel Sounds Present, Soft, Non-Distended, Obese, Tender - Left lower quadrant Extremities: No clubbing, No cyanosis, No edema, Capillary Refill Less than 3 Seconds Skin: No rashes, No breakdown Musculoskeletal: No Tenderness to Palpation of Joints or Extremities Neurological: Cranial nerves II-XII grossly intact, Neuro grossly intact Psych/Mental Status: Normal Affect, Appropriate Vital Signs Temp Pulse Resp BP Pulse Ox 98.0 F 85 18 118/65 94 06/11/19 15:18 06/11/19 15:18 06/11/19 15:18 06/11/19 15:18 06/11/19 15:18 Oxygen Delivery Method Room Air Weight: 243 lb Body Mass Index (BMI) 38.0 Finger Stick Blood Glucose 263 Laboratory Tests Past 24 Hrs 06/11/19 06/11/19 06/11/19 12:15 12:15 13:20 WBC 10.7 RBC 4.78 Hgb 12.5 Hct 38.1 MCV 79.7 L MCH 26.2 L MCHC 32.8 RDW Std Deviation 39.5 RDW Coeff of Karina 13.8 Plt Count 449 MPV 9.9 Immature Gran % (Auto) 0.700 Neut % (Auto) 71.0 H Lymph % (Auto) 20.6 [place] % (Auto) 6.5 Eos % (Auto) 0.7 Baso % (Auto) 0.5 Absolute Neuts (auto) 7.6 Absolute Lymphs (auto) 2.20 Nucleated RBC % 0 Sodium 138 Potassium 4.3 Chloride 104 Carbon Dioxide 23.0 Anion Gap 11 BUN 7 Creatinine 0.76 Estim Creat Clear Calc 98.56 Est GFR (MDRD) Af Amer 110 Est GFR (MDRD) Non-Af 91 BUN/Creatinine Ratio 9.3 L Glucose 162 H Calcium 9.0 Urine Color Yellow Urine Clarity Cloudy Urine pH 5.0 Ur Specific [place] 1.020 Urine Protein 30 H Urine Glucose (UA) Normal Urine Ketones 5 H Urine Occult Blood 10 H Urine Nitrite Positive H Urine Bilirubin 1 H Urine Urobilinogen 1 H Ur Leukocyte Esterase 500 H Urine RBC 5-10 SEEN Urine WBC 50-100 SEEN Ur Squamous Epith Cells 0 SEEN Urine Bacteria 2+ Urine Mucus 1+ Assessment/Plan All Active Problems (Last Reviewed 07/08/18 @ 08:05 by Joi Daily) Tobacco dependence in remission (Resolved) history of sinusplasty (Resolved) History of tubal ligation (Resolved) History of total hysterectomy (Resolved) History of cholecystectomy (Resolved) Acute DVT (deep venous thrombosis) (Resolved) 1. Acute UTI with history of recurrent UTIs-prior urine cultures with mixed gram-positive organisms. Most recent urine culture at [facility] 05/13/[address] of abdomen and pelvis showed no acute abnormality. IV fluids. IV Rocephin pending culture. Consult Dr. Hidalgo, female urology. PRN antiemetic for nausea. Clear liquids. 2. Type 2 diabetes mellitus with peripheral neuropathy-continue home insulin regimen. Accu-Cheks ACHS with sliding scale insulin. Check hemoglobin A 1C. 3. GERD-continue PPI. 4. Restless leg syndrome-continue pramipexole regimen. 5. Anxiety/depression-continue home citalopram, Xanax, Trileptal. 6. Chronic Asthma-no exacerbation. As needed albuterol aerosol. 7. Hyperlipidemia-not on statin. 8. SIERRA 9. Morbid obesity-encouraged diet lifestyle modifications. Nutrition consult. 10. Hypothyroidism-not on regimen? DVT prophylaxis-not indicated, early ambulation. This patient was seen by IAIN Shaw under the supervision of Dr. Crane.
[2019-06-11 17:35] LABS: Bedside Glucose 154 mg/dL (70-110)
[2019-06-11] MEDS: Insulin Lispro 100 UNIT/ML INSULN.PEN SC ×2 (17:47→22:46)
[2019-06-11 18:27] LABS: Hemoglobin A1c 6.9 % (4.2-6.3)
[2019-06-11] MEDS: oxyCODONE 5 MG Tablet 10 MG PO (19:43)
--- NOTE | 2019-06-11 19:47 | CON.PCM_ITS ---
Problem List (1) Urinary tract infection Status: Acute Reason for Consult Date of Consultation: 06/11/19 Reason for Consultation: urinary tract infection History of Present Illness: The patient is a 38 year old F with a history of diabetes, autoimmune disorder likely sarcoidosis who has had a cholecystectomy approximately 4 years ago with loose stool since then. Over the course of the last year she has had intermittent bloody stools and a weight loss of 50 pounds associated with nausea and anorexia. She has been treated for a total of 4 urinary tract infections in the course of the last 6 months which she reports were contaminated specimens. She has intermittent dysuria but none presently. She reports that most of her urinary symptoms include an erythematous periurethral and periclitoral area that she treats intermittently with Desitin. This seems to control her discomfort at least temporarily. She is sexually active and reports pain on entry. She has no history of vaginitis or sexually transmitted disease. She is established with a GI physician at the [facility] and she is scheduled for an upper endoscopy. She has not been scheduled for a colonoscopy despite the blood in her stool. Her symptoms today include left-sided abdominal pain that radiates from her left back. She also reports right-sided low back pain in addition to this. She denies suprapubic abdominal pain, pelvic pain. She did have some nausea and vomiting yesterday but is able to tolerate oral intake today. She denies fever or chills. Past Medical History Past Medical History (Chronic Problems): Chronic Problems (Last Reviewed 06/11/19 @ 19:51 by Meeta Hidalgo MD) Hypothyroidism (acquired) (Chronic) Thyroid ulrasound indicate additional nodules have been detected. I have sent results to [place] for review and I have ask patient to make appointment. Upper airway cough syndrome (Chronic) Allergic rhinitis (Chronic) Chronic ethmoidal sinusitis (Chronic) Depression (Chronic) Rosacea (Chronic) Anxiety (Chronic) Morbid obesity (Chronic) Atopic dermatitis (Chronic) Chronic mastoiditis (Chronic) Myalgia and myositis (Chronic) Peripheral edema (Chronic) SIERRA (obstructive sleep apnea) (Chronic) Restless legs syndrome (Chronic) Chronic back pain (Chronic) Hyperlipidemia (Chronic) Asthma (Chronic) GERD (gastroesophageal reflux disease) (Chronic) DM type 2 (diabetes mellitus, type 2) (Chronic) Dx : age 16 Last exacerbation : DKA : 2014 CGM interpretation noted average BG of 138 for the period of use after educated on diet, insulin and given a sliding scale. Patient has done very well since using the kym and continues to do so. I did lower her insulin sliding scale at 3 days to avoid low BG during the course of the test as the low BG may have been creating rebound high BG. Peripheral neuropathy (Chronic) Medical History: Medical History (Last Reviewed 06/11/19 @ 19:51 by Meeta Hidalgo MD) Chronic ethmoidal sinusitis (Chronic) J32.2 Depression (Chronic) F32.9 Rosacea (Chronic) L71.9 Anxiety (Chronic) F41.9 Morbid obesity (Chronic) E66.01 Atopic dermatitis (Chronic) L20.9 Chronic mastoiditis (Chronic) H70.10 Myalgia and myositis (Chronic) Peripheral edema (Chronic) R60.9 SIERRA (obstructive sleep apnea) (Chronic) G47.33 Restless legs syndrome (Chronic) G25.81 Chronic back pain (Chronic) M54.9, G89.29 Acute DVT (deep venous thrombosis) (Resolved) I82.409 Hyperlipidemia (Chronic) E78.5 Sarcoidosis (Suspected) D86.9 Asthma (Chronic) J45.909 GERD (gastroesophageal reflux disease) (Chronic) K21.9 DM type 2 (diabetes mellitus, type 2) (Chronic) E11.9 Dx : age 16 Last exacerbation : DKA : 2013 CGM interpretation noted average BG of 138 for the period of use after educated on diet, insulin and given a sliding scale. Patient has done very well since using the kym and continues to do so. I did lower her insulin sliding scale at 3 days to avoid low BG during the course of the test as the low BG may have been creating rebound high BG. Peripheral neuropathy (Chronic) G62.9 Arthritis M19.90 Bone fracture T14.8XXA Recurrent UTI N39.0 Seasonal allergies J30.2 Allergies tramadol HCl [From [facility]] Adverse Reaction (Verified 06/11/19 11:56) Vomiting Home Medications: Ambulatory Orders Medication Instructions Recorded Albuterol Inhaler [Ventolin Hfa] 1 - 2 puff INHALATION Q6H PRN PRN 07/31/14 Tizanidine HCl 4 mg PO TID 01/27/15 Oxycodone HCl/Acetaminophen 1 tab PO Q6H PRN PRN #12 tab 02/28/15 [Percocet 5/325] ALPRAZolam [Xanax] 0.5 mg PO PRN PRN 02/11/17 citalopram 40 mg tablet 40 mg PO DAILY tab 01/31/18 insulin glargine (U-100) 100 50 unit SC BID ml 01/31/18 unit/mL (3 mL) subcutaneous pen liraglutide 0.6 mg/0.1 mL (18 mg/3 1.8 mg SC DAILY ml 01/31/18 mL) subcutaneous pen injector pantoprazole 40 mg tablet,delayed 40 mg PO BID 01/31/18 release pramipexole 1 mg tablet 1 mg PO BID tab 01/31/18 Hydroxyzine Pamoate [Vistaril] 50 mg PO TID 06/11/19 Insulin Aspart [Novolog Flexpen 0 units SUBCUT TIDCM 06/11/19 ([facility])] Oxcarbazepine [Trileptal] 300 mg PO BID 06/11/19 Pregabalin 100 mg PO TID 06/11/19 Trazodone HCl 50 - 200 mg PO QHS 06/11/19 Surgical History: Surgical History (Last Reviewed 06/11/19 @ 19:51 by Meeta Hidalgo MD) history of sinusplasty (Resolved) History of tubal ligation (Resolved) Z98.51 History of total hysterectomy (Resolved) Z98.890, Z90.710 History of cholecystectomy (Resolved) Z98.890, Z90.49 lymph node removal Surgical History: - - Hysterectomy, lymph node removal neck, cholecystectomy, sinus plasty. 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 Smoking Status: Former smoker Alcohol: None Drugs: None - *Family History Maternal Family History: Family History (Last Reviewed 06/11/19 @ 19:52 by Meeta Hidalgo MD) Father Diabetes Asthma Brother Asthma Unknown Asthma Arthritis Diabetes Heart disease Hypertension Thyroid disorder History Items: Hypertension Paternal Family History: Family History (Last Reviewed 06/11/19 @ 19:52 by Meeta Hidalgo MD) Father Diabetes Asthma Brother Asthma Unknown Asthma Arthritis Diabetes Heart disease Hypertension Thyroid disorder History Items: Diabetes Review of Systems Constitutional: Reports: Anorexia, Weight Change - 50 pound weight loss over the last yr Eyes: Denies: Vision Change HEENT: Denies: Difficulty Swallowing Cardiovascular: Denies: Chest Pain Respiratory: Denies: Shortness of Breath Gastrointestinal: Reports: Abdominal Pain, Diarrhea, Dyspepsia, Hematochezia, Nausea, Vomiting Genitourinary: Denies: Dysuria, Frequency, Hematuria, Urgency Gynecological: Reports: Sexual concerns Musculoskeletal: Reports: Back Pain Neurological: Denies: Slurred speech Patient Problems: Active and Suspected Problems (Last Reviewed 06/11/19 @ 19:51 by Meeta Hidalgo MD) Urinary tract infection (Acute) - Physical Exam General: Alert, Oriented x3, Cooperative, No apparent distress HEENT: Atraumatic, Normocephalic Oral: Moist Mucosa Neck: Supple, Trachea Midline Lungs: Normal air movement Cardiovascular: Regular rate Abdomen: Soft, Non-Distended, Obese, Tender - mild left tenderness to palpation Musculoskeletal: No Muscle Wasting Neurological: Cranial nerves II-XII grossly intact, Neuro grossly intact Psych/Mental Status: Normal Affect, Alert and oriented to time, place, person, mood and affect Comment: CT reviewed. Punctate right stone. No other urologic pathology Vital Signs Temp Pulse Resp BP Pulse Ox 98.0 F 85 18 118/65 94 06/11/19 15:18 06/11/19 15:18 06/11/19 15:18 06/11/19 15:18 06/11/19 15:18 Oxygen Delivery Method Room Air Weight: 110.223 kg Body Mass Index (BMI) 38.0 Finger Stick Blood Glucose 263 Intake and Output for Last 24 Hours 06/09/19 06/10/19 06/11/19 23:59 23:59 23:59 Intake Total 50 / 50 Balance 50 / 50 Laboratory Tests Past 24 Hrs 06/11/19 06/11/19 06/11/19 12:15 12:15 12:15 WBC 10.7 RBC 4.78 Hgb 12.5 Hct 38.1 MCV 79.7 L MCH 26.2 L MCHC 32.8 RDW Std Deviation 39.5 RDW Coeff of Karina 13.8 Plt Count 449 MPV 9.9 Immature Gran % (Auto) 0.700 Neut % (Auto) 71.0 H Lymph % (Auto) 20.6 [place] % (Auto) 6.5 Eos % (Auto) 0.7 Baso % (Auto) 0.5 Absolute Neuts (auto) 7.6 Absolute Lymphs (auto) 2.20 Nucleated RBC % 0 Sodium 138 Potassium 4.3 Chloride 104 Carbon Dioxide 23.0 Anion Gap 11 BUN 7 Creatinine 0.76 Estim Creat Clear Calc 98.56 Est GFR (MDRD) Af Amer 110 Est GFR (MDRD) Non-Af 91 BUN/Creatinine Ratio 9.3 L Glucose 162 H Hemoglobin A1c 6.9 H Calcium 9.0 Urine Color Urine Clarity Urine pH Ur Specific [place] Urine Protein Urine Glucose (UA) Urine Ketones Urine Occult Blood Urine Nitrite Urine Bilirubin Urine Urobilinogen Ur Leukocyte Esterase Urine RBC Urine WBC Ur Squamous Epith Cells Urine Bacteria Urine Mucus 06/11/19 13:20 WBC RBC Hgb Hct MCV MCH MCHC RDW Std Deviation RDW Coeff of Karina Plt Count MPV Immature Gran % (Auto) Neut % (Auto) Lymph % (Auto) [place] % (Auto) Eos % (Auto) Baso % (Auto) Absolute Neuts (auto) Absolute Lymphs (auto) Nucleated RBC % Sodium Potassium Chloride Carbon Dioxide Anion Gap BUN Creatinine Estim Creat Clear Calc Est GFR (MDRD) Af Amer Est GFR (MDRD) Non-Af BUN/Creatinine Ratio Glucose Hemoglobin A1c Calcium Urine Color Yellow Urine Clarity Cloudy Urine pH 5.0 Ur Specific [place] 1.020 Urine Protein 30 H Urine Glucose (UA) Normal Urine Ketones 5 H Urine Occult Blood 10 H Urine Nitrite Positive H Urine Bilirubin 1 H Urine Urobilinogen 1 H Ur Leukocyte Esterase 500 H Urine RBC 5-10 SEEN Urine WBC 50-100 SEEN Ur Squamous Epith Cells 0 SEEN Urine Bacteria 2+ Urine Mucus 1+ POC Glucose 06/11/19 17:28 POC Glucose 154 H Assessment/Plan All Active Problems (Last Reviewed 06/11/19 @ 19:51 by Meeta Hidalgo MD) Urinary tract infection (Acute) Tobacco dependence in remission (Resolved) history of sinusplasty (Resolved) History of tubal ligation (Resolved) History of total hysterectomy (Resolved) History of cholecystectomy (Resolved) Acute DVT (deep venous thrombosis) (Resolved) await urine cultures needs out patient evaluation and management for UTI's, dyspareunia, vaginitis tight control DM continue with GI evaluation and management weight loss nausea, anorexia abdominal pain hematochezia scheduled for endoscopy not anemic with hgb 12.5, no increased WBC, no electrolyte concerns etc will follow, ok to discharge from standpoint. can complete evaluation in the office Thank you for the consult
[2019-06-11 20:30] VITALS: BP 116/68; PULSE 81; RESP 20; TEMP 36.8; O2SAT 93
[2019-06-11] MEDS: Pantoprazole Sodium 40 MG Tablet PO (22:45)
[2019-06-11] MEDS: tiZANidine HCl 2 MG Tablet 4 MG PO (22:45)
[2019-06-11] MEDS: Pramipexole Di-HCl 1 MG Tablet PO (22:45)
[2019-06-11] MEDS: Pregabalin 50 MG Capsule 100 MG PO (22:45)
[2019-06-11] MEDS: hydrOXYzine PAM 25 MG Capsule 50 MG PO (22:45)
[2019-06-11] MEDS: ALPRAZolam 0.5 MG Tablet PO (22:53)
[2019-06-11 22:56] LABS: Bedside Glucose 174 mg/dL (70-110)
[2019-06-12 01:06] VITALS: BP 114/65; PULSE 77
[2019-06-12] MEDS: Morphine 4 MG/ML Syringe IV ×2 (01:06→04:36)
[2019-06-12] MEDS: 0.9% NaCl Peripheral Flush Adult/Peds IV ×2 (01:06→04:36)
[2019-06-12 04:23] VITALS: BP 123/69; PULSE 77; RESP 18; TEMP 36.6; O2SAT 95
[2019-06-12] MEDS: 0.9% Normal Saline 1,000 ML 125 ML IV (04:30)
[2019-06-12 05:31] LABS: Absolute Lymphocyte Count 2.31 X10^3/uL (0.83-4.51); Absolute Neutrophil Count 4.5 X10^3/uL (2.0-7.7); Basophil# 0.03 X10^3/uL; Basophil% 0.4 % (0-1); Eosinophil# 0.19 X10^3/uL; Eosinophils% 2.4 % (0-5); Hematocrit 34.6 % (37-47); Hemoglobin 10.7 g/dL (12.0-15.0); Lymphocyte # 2.31 X10^3/ul (4.0); Lymphocyte % 29.8 % (19-41); Mean Corp Hgb Conc 30.9 g/dL (32-36); Mean Corpuscular Hgb 25.4 pg (27.0-32.0); Mean Corpuscular Volume 82.2 fL (81-99); Mean Platelet Vol. 9.7 fl (6.2-12.0); Monocyte# 0.73 X10^3/uL; Monocyte% 9.4 % (0-10); NRBC Flagged by Analyzer 0 % (0-5); Neutrophil # 4.47 X10^3/uL (2.7-7.7); Neutrophil % 57.6 % (47-70); Platelet Count 378 K/mm3 (150-450); RBC Distribution Width SD 41.1 fl (35.1-43.9); Red Blood Count 4.21 M/mm3 (4.2-5.4); White Blood Count 7.8 K/mm3 (4.4-11.0)
[2019-06-12] MEDS: Insulin Lispro 100 UNIT/ML INSULN.PEN SC (06:51)
[2019-06-12 07:00] LABS: Bedside Glucose 238 mg/dL (70-110)
[2019-06-12] MEDS: Citalopram 40 MG TABLET PO (08:26)
[2019-06-12] MEDS: Pregabalin 50 MG Capsule 100 MG PO (08:26)
[2019-06-12] MEDS: oxyCODONE 5 MG Tablet 10 MG PO (08:26)
[2019-06-12] MEDS: Pramipexole Di-HCl 1 MG Tablet PO (08:27)
[2019-06-12] MEDS: hydrOXYzine PAM 25 MG Capsule 50 MG PO (08:27)
[2019-06-12] MEDS: Pantoprazole Sodium 40 MG Tablet PO (08:27)
[2019-06-12 08:35] VITALS: BP 119/71; PULSE 93; RESP 16; TEMP 36.2; O2SAT 93
--- NOTE | 2019-06-12 08:45 | PCM.DC ---
- Discharge Diagnoses Current Active Problems: Current Active and Chronic Problems (Last Reviewed 06/11/19 @ 19:51 by Meeta Hidalgo MD) Urinary tract infection (Acute) You will use the following diet at home:: Calorie/Carbohydrate Controlled (specify 1200, 1400, etc) - 1800 Your food should be the consistency of: Regular Your liquids should be the consistency of: Regular/Thin Discharge Activity: Return to Normal Activity Call your doctor if you observe: Fever of 101 or Higher, - - recurrent urinary frequency, painful urination. Allergies/Adverse Reactions: Allergies tramadol HCl [From Ultra] Adverse Reaction (Verified 06/11/19 11:56) Vomiting Medications to take at Discharge Albuterol Inhaler [Ventolin Hfa] 1 - 2 puff INHALATION Q6H PRN PRN 07/31/14 Oxycodone HCl/Acetaminophen [Percocet 5-325] 1 tab PO Q6H PRN PRN #12 tab 02/28/15 ALPRAZolam [Xanax] 0.5 mg PO PRN PRN 02/11/17 insulin glargine (U-100) 100 unit/mL (3 mL) subcutaneous pen 50 unit SC BID ml 01/31/18 liraglutide 0.6 mg/0.1 mL (18 mg/3 mL) subcutaneous pen injector 1.8 mg SC DAILY ml 01/31/18 pantoprazole 40 mg tablet,delayed release 40 mg PO BID 01/31/18 pramipexole 1 mg tablet 1 mg PO BID tab 01/31/18 Insulin Aspart [Novolog Flexpen] 0 units SUBCUT TIDCM 06/11/19 Oxcarbazepine [Trileptal] 300 mg PO BID 06/11/19 Pregabalin 100 mg PO TID 06/11/19 Trazodone HCl 50 - 200 mg PO QHS 06/11/19 Acetaminophen 500 mg PO Q6H PRN #1 tab 06/12/19 Ciprofloxacin [Cipro] 500 mg PO BID #12 tab 06/12/19 Citalopram Hydrobromide [Citalopram HBr] 40 mg PO DAILY #0 tab 06/12/19 Hydroxyzine Pamoate [Vistaril] 50 mg PO TID #0 06/12/19 Ibuprofen 600 mg PO 4X/DAY PRN #1 tab 06/12/19 Tizanidine HCl 4 mg PO TID #0 06/12/19 The following prescriptions were given: Acetaminophen 500 mg PO Q6H PRN #1 tab PRN Reason: Pain Score 1-10/10 Ciprofloxacin [Cipro] 500 mg PO BID #12 tab Transmission Status: Pending to [facility]/pharmacy #[id number] Ibuprofen 600 mg PO 4X/DAY PRN #1 tab PRN Reason: Pain Score 1-10/10 Primary Care Physician: Albert Cheatham DO [Primary Care Provider] - Within 2 Weeks Test Results: Test results from this visit will be discussed in further detail at your follow-up appointment, if applicable. Please Follow Up With: Meeta Hidalgo MD - Urology When: 2-4 weeks Proposed Discharge Date: 06/12/19
--- NOTE | 2019-06-12 08:47 | PCM.DC.SUM ---
Discharge Date and Diagnosis - Problem List Patient Problems: Active and Suspected Problems (Last Reviewed 06/11/19 @ 19:51 by Meeta Hidalgo MD) Urinary tract infection (Acute) Date of Admission: 06/11/19 Date of Discharge: 06/12/19 - Primary Discharge Diagnosis Active and Suspected Problems (Last Reviewed 06/11/19 @ 19:51 by Meeta Hidalgo MD) Urinary tract infection (Acute) - Secondary Discharge Diagnosis Chronic Problems (Last Reviewed 06/11/19 @ 19:51 by Meeta Hidalgo MD) Hypothyroidism (acquired) (Chronic) Thyroid ulrasound indicate additional nodules have been detected. I have sent results to [facility] for review and I have ask patient to make appointment. Upper airway cough syndrome (Chronic) Allergic rhinitis (Chronic) Chronic ethmoidal sinusitis (Chronic) Depression (Chronic) Rosacea (Chronic) Anxiety (Chronic) Morbid obesity (Chronic) Atopic dermatitis (Chronic) Chronic mastoiditis (Chronic) Myalgia and myositis (Chronic) Peripheral edema (Chronic) SIERRA (obstructive sleep apnea) (Chronic) Restless legs syndrome (Chronic) Chronic back pain (Chronic) Hyperlipidemia (Chronic) Asthma (Chronic) GERD (gastroesophageal reflux disease) (Chronic) DM type 2 (diabetes mellitus, type 2) (Chronic) Dx : age 16 Last exacerbation : DKA : 2014 CGM interpretation noted average BG of 138 for the period of use after educated on diet, insulin and given a sliding scale. Patient has done very well since using the kym and continues to do so. I did lower her insulin sliding scale at 3 days to avoid low BG during the course of the test as the low BG may have been creating rebound high BG. Peripheral neuropathy (Chronic) Hospital Course and Treatment Imaging Results: Clinical Impression(s) from Imaging Studies Abdomen/Pelvis CT 06/11/19 12:05 IMPRESSION: No acute abnormality is seen. Electronically Signed: Santhosh Wilkins, at 13:04 EDT , Service support , Meeta Hidalgo: urology Operations: None, - Procedures: None Summary of Care Provided: The patient is a 38 year old F presents with flank pain. Earlier, patient was treated with UTI with Bactrim and stated she completed the antibiotics and symptoms recurred. Presented to the emergency room with bilateral back and flank pain. She underwent a CT of the abdomen and pelvis that showed no acute process. Patient was started on ceftriaxone for an abnormal urinalysis consistent with a urinary tract infection. My examination today, revealed bilateral para muscle tenderness, did not reveal any rash to suggest zoster reactivation. Discussed with patient that this is likely urinary tract infection and musculoskeletal strain from cause not identified but not pyelonephritis. Patient would be discharged with a ciprofloxacin. Patient takes several medications that can potentiate the QT prolongation and I have advised that was being held while she takes ciprofloxacin. Urine culture is still pending. Given the patient's frequent urinary tract infections, urology was consulted. Patient was seen by Dr. Hidalgo who recommended outpatient evaluation and management of her urinary tract infections, dyspareunia and vaginitis. I did review the patient's [place]AR[place] reports and patient is active Sherwin receiving oxycodone/acetaminophen and received 110 on June 09, additionally she is on pregabalin 100 and taken to 3 times a day and last received a prescription on 03 June and also receiving alprazolam 0.25mg and received 20 tablets on June 11. Patient does not appear to be tearer press clipping with a different physicians and seems to be getting these from the same providers. Patient did not specifically asked for any narcotics but I did tell her that she would not be receiving any for me and I did recommend that she take acetaminophen as well as ibuprofen to supplement her pain control. Acetaminophen will need to be modified so as not to exceed a total of 4 g in a day. [] Patient Problems: Active and Suspected Problems (Last Reviewed 06/11/19 @ 19:51 by Meeta Hidalgo MD) Urinary tract infection (Acute) - Physical Exam General: Alert, No apparent distress, - - Appears older than stated age HEENT: Atraumatic, Normocephalic Neck: No Nodes, Thyroid Normal Size and Texture Lungs: Clear to auscultation, Normal air movement, No rhonchi, No wheeze Cardiovascular: Regular rate, Regular Rhythm, Normal S1, Normal S2 Musculoskeletal: - - Bilateral back lumbar para spinal tenderness Psych/Mental Status: Normal Affect, Appropriate Vital Signs Temp Pulse Resp BP Pulse Ox 36.2 C L 93 16 119/71 93 06/12/19 08:35 06/12/19 08:35 06/12/19 08:35 06/12/19 08:35 06/12/19 08:35 Oxygen Delivery Method Room Air Weight: 110.223 kg Body Mass Index (BMI) 38.0 Finger Stick Blood Glucose 263 Intake and Output for Last 24 Hours 06/10/19 06/11/19 06/12/19 23:59 23:59 23:59 Intake Total 1050 / 1850 2179.17 / 2179.17 Output Total 100 / 100 1600 / 1600 Balance 950 / 1750 579.17 / 579.17 Laboratory Tests Past 24 Hrs 06/11/19 06/11/19 06/11/19 12:15 12:15 12:15 WBC 10.7 RBC 4.78 Hgb 12.5 Hct 38.1 MCV 79.7 L MCH 26.2 L MCHC 32.8 RDW Std Deviation 39.5 RDW Coeff of Karina 13.8 Plt Count 449 MPV 9.9 Immature Gran % (Auto) 0.700 Neut % (Auto) 71.0 H Lymph % (Auto) 20.6 [place] % (Auto) 6.5 Eos % (Auto) 0.7 Baso % (Auto) 0.5 Absolute Neuts (auto) 7.6 Absolute Lymphs (auto) 2.20 Nucleated RBC % 0 Sodium 138 Potassium 4.3 Chloride 104 Carbon Dioxide 23.0 Anion Gap 11 BUN 7 Creatinine 0.76 Estim Creat Clear Calc 98.56 Est GFR (MDRD) Af Amer 110 Est GFR (MDRD) Non-Af 91 BUN/Creatinine Ratio 9.3 L Glucose 162 H Hemoglobin A1c 6.9 H Calcium 9.0 Urine Color Urine Clarity Urine pH Ur Specific Sanders Urine Protein Urine Glucose (UA) Urine Ketones Urine Occult Blood Urine Nitrite Urine Bilirubin Urine Urobilinogen Ur Leukocyte Esterase Urine RBC Urine WBC Ur Squamous Epith Cells Urine Bacteria Urine Mucus 06/11/19 06/12/19 13:20 05:00 WBC 7.8 RBC 4.21 Hgb 10.7 L Hct 34.6 L MCV 82.2 MCH 25.4 L MCHC 30.9 L RDW Std Deviation 41.1 RDW Coeff of Karina 14.0 Plt Count 378 MPV 9.7 Immature Gran % (Auto) 0.400 Neut % (Auto) 57.6 Lymph % (Auto) 29.8 [place] % (Auto) 9.4 Eos % (Auto) 2.4 Baso % (Auto) 0.4 Absolute Neuts (auto) 4.5 Absolute Lymphs (auto) 2.31 Nucleated RBC % 0 Sodium Potassium Chloride Carbon Dioxide Anion Gap BUN Creatinine Estim Creat Clear Calc Est GFR (MDRD) Af Amer Est GFR (MDRD) Non-Af BUN/Creatinine Ratio Glucose Hemoglobin A1c Calcium Urine Color Yellow Urine Clarity Cloudy Urine pH 5.0 Ur Specific Sanders 1.020 Urine Protein 30 H Urine Glucose (UA) Normal Urine Ketones 5 H Urine Occult Blood 10 H Urine Nitrite Positive H Urine Bilirubin 1 H Urine Urobilinogen 1 H Ur Leukocyte Esterase 500 H Urine RBC 5-10 SEEN Urine WBC 50-100 SEEN Ur Squamous Epith Cells 0 SEEN Urine Bacteria 2+ Urine Mucus 1+ POC Glucose 06/12/19 06/11/19 06/11/19 06:50 22:42 17:28 POC Glucose 238 H 174 H 154 H Discharge Diet: 1800 Calorie Control Diet Discharge Activity: Return to Normal Activity Call your doctor if you observe: Fever of 101 or Higher, - - recurrent urinary frequency, painful urination. Home Medications: Medications to take at Discharge Albuterol Inhaler [Ventolin Hfa] 1 - 2 puff INHALATION Q6H PRN PRN 07/31/14 Oxycodone HCl/Acetaminophen [Percocet 5-325] 1 tab PO Q6H PRN PRN #12 tab 02/28/15 ALPRAZolam [Xanax] 0.5 mg PO PRN PRN 02/11/17 insulin glargine (U-100) 100 unit/mL (3 mL) subcutaneous pen 50 unit SC BID ml 01/31/18 liraglutide 0.6 mg/0.1 mL (18 mg/3 mL) subcutaneous pen injector 1.8 mg SC DAILY ml 01/31/18 pantoprazole 40 mg tablet,delayed release 40 mg PO BID 01/31/18 pramipexole 1 mg tablet 1 mg PO BID tab 01/31/18 Insulin Aspart [Novolog Flexpen] 0 units SUBCUT TIDCM 06/11/19 Oxcarbazepine [Trileptal] 300 mg PO BID 06/11/19 Pregabalin 100 mg PO TID 06/11/19 Trazodone HCl 50 - 200 mg PO QHS 06/11/19 Acetaminophen 500 mg PO Q6H PRN #1 tab 06/12/19 Ciprofloxacin [Cipro] 500 mg PO BID #12 tab 06/12/19 Citalopram Hydrobromide [Citalopram HBr] 40 mg PO DAILY #0 tab 06/12/19 Hydroxyzine Pamoate [Vistaril] 50 mg PO TID #0 06/12/19 Ibuprofen 600 mg PO 4X/DAY PRN #1 tab 06/12/19 Tizanidine HCl 4 mg PO TID #0 06/12/19 Following Prescrptions Were Given to Patient: Acetaminophen 500 mg PO Q6H PRN #1 tab PRN Reason: Pain Score 1-10/10 Ciprofloxacin [Cipro] 500 mg PO BID #12 tab Transmission Status: Pending to [facility]/pharmacy #[id number] Ibuprofen 600 mg PO 4X/DAY PRN #1 tab PRN Reason: Pain Score 1-10/10 Primary Care Physician: Albert Cheatham DO [Primary Care Provider] - Within 2 Weeks Please Follow Up With: Meeta Hidalgo MD - Urology When: 2-4 weeks Disposition: Home Minutes spent on discharge:: 28 Patient Condition:: Good Medical Necessity - Tobacco Use Smoking Status: Former smoker Meaningful Use Info Meaningful Use Diagnoses (Choose all that apply): None applicable Code Visit OBSV E&M: 81862 Observation care discharge
[2019-06-12] MEDS: Ceftriaxone 1 GM/50 ML BAG IV (09:42)
== END 2019-06-12 10:30 | disposition home or self-care (01) ==
LOC: ED 12:13 → MS3 14:35
PROVIDERS: Nurse Practitioner Family; Admitting Provider Internal Medicine; Emergency Provider Emergency Medicine; Family Provider Family Medicine; PCP Family Medicine; Referring Provider Internal Medicine
DX: N39.0 Urinary tract infection, site not specified (principal); E03.9 Hypothyroidism, unspecified; G47.33 Obstructive sleep apnea (adult) (pediatric); E66.01 Morbid (severe) obesity due to excess calories; K21.9 Gastro-esophageal reflux disease without esophagitis; E11.42 Type 2 diabetes mellitus with diabetic polyneuropathy; J45.909 Unspecified asthma, uncomplicated; F41.9 Anxiety disorder, unspecified; F32.9 Major depressive disorder, single episode, unspecified; E78.5 Hyperlipidemia, unspecified; G89.29 Other chronic pain; G25.81 Restless legs syndrome; Z79.899 Other long term (current) drug therapy; Z79.4 Long term (current) use of insulin; Z68.38 Body mass index [BMI] 38.0-38.9, adult; Z71.3 Dietary counseling and surveillance; Z86.718 Personal history of other venous thrombosis and embolism; Z87.891 Personal history of nicotine dependence
CPT/HCPCS: 36415; 74176; 80048; 81001; 82962; 83036; 85025; 87086; 96361; 96365; 96366; 96375; 96376; 99218; 99283; J7030; A4216; G0378; J2405

== ENCOUNTER → 2019-07-04 12:28 | Outpatient (CLI) | payer MEDICAID, SELFPAY ==
[2019-06-11 14:45] VITALS: BMI 38.0
--- NOTE | 2019-07-04 12:35 | MRI_ITS ---
STUDY: MRI LUMBAR SPINE WITHOUT CONTRAST REASON FOR EXAM: Female, 38 years old. Low back pain for 2 years. TECHNIQUE: Standardized fat and water weighted pulse sequences were obtained in the sagittal and axial planes. COMPARISON: May 19, 2016. FINDINGS: Slightly exaggerated lumbar lordosis. Minimal levoscoliosis. Conus medullaris terminates normally at the T12-L1 level. No acute fracture, dislocation or osseous destruction. Normal paraspinal muscles. Normal aorta. Normal retroperitoneum. Small Schmorl's nodes. T12-L1: No significant spondylosis. Disc desiccation. Normal bilateral facet joints. Normal central canal and bilateral lateral recesses. Normal bilateral intervertebral neural foramina. L1-2: No significant spondylosis. Disc desiccation. Normal bilateral facet joints. Normal central canal and bilateral lateral recesses. Normal bilateral intervertebral neural foramina. L2-3: No significant spondylosis. Normal disc height, hydration and morphology. Normal bilateral facet joints. Normal central canal and bilateral lateral recesses. Normal bilateral intervertebral neural foramina. L3-4: No significant spondylosis. Normal disc height, hydration and morphology. Normal bilateral facet joints. Normal central canal and bilateral lateral recesses. Normal bilateral intervertebral neural foramina. L4-5: No significant spondylosis. Normal disc height, hydration and morphology. Normal bilateral facet joints. Normal central canal and bilateral lateral recesses. Normal bilateral intervertebral neural foramina. L5-S1: No significant spondylosis. Normal disc height, hydration and morphology. Normal bilateral facet joints. Normal central canal and bilateral lateral recesses. Normal bilateral intervertebral neural foramina. Bilateral pars defects without spondylolisthesis (sagittal image 9 series 2). 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
== END ==
PROVIDERS: Family Provider Family Medicine; PCP Family Medicine; Referring Provider Nurse Practitioner Family; Visit Provider Nurse Practitioner Family
DX: M46.96 Unspecified inflammatory spondylopathy, lumbar region (principal); M51.37 Other intervertebral disc degeneration, lumbosacral region; M47.817 Spondylosis without myelopathy or radiculopathy, lumbosacral region
CPT/HCPCS: 72148

== ENCOUNTER → 2019-08-22 13:51 | Outpatient (CLI) | payer MEDICAID, SELFPAY ==
[2019-08-22 15:29] LABS: Absolute Lymphocyte Count 2.02 X10^3/uL (0.83-4.51); Absolute Neutrophil Count 4.5 X10^3/uL (2.0-7.7); Basophil# 0.05 X10^3/uL; Basophil% 0.7 % (0-1); Eosinophil# 0.17 X10^3/uL; Eosinophils% 2.3 % (0-5); Hematocrit 37.5 % (37-47); Hemoglobin 11.7 g/dL (12.0-15.0); Lymphocyte # 2.02 X10^3/ul (4.0); Lymphocyte % 27.4 % (19-41); Mean Corp Hgb Conc 31.2 g/dL (32-36); Mean Corpuscular Hgb 25.6 pg (27.0-32.0); Mean Corpuscular Volume 82.1 fL (81-99); Mean Platelet Vol. 9.9 fl (6.2-12.0); Monocyte# 0.61 X10^3/uL; Monocyte% 8.3 % (0-10); NRBC Flagged by Analyzer 0 % (0-5); Neutrophil # 4.47 X10^3/uL (2.7-7.7); Neutrophil % 60.5 % (47-70); Platelet Count 392 K/mm3 (150-450); RBC Distribution Width SD 43.2 fl (35.1-43.9); Red Blood Count 4.57 M/mm3 (4.2-5.4); White Blood Count 7.4 K/mm3 (4.4-11.0)
[2019-08-22 15:49] LABS: ALB/GLOB Ratio 0.7 RATIO (0.9-2.4); AST(SGOT) 16 U/L (15-37); Alanine Aminotransfer ALT/SGPT 21 U/L (13-56); Albumin, Serum 2.9 g/dL (3.2-5.0); Alkaline Phosphatase 112 U/L (45-117); Anion Gap 5 (5-15); BUN 8 mg/dL (7-18); BUN/Creat Ratio 9.5 RATIO (10-20); Calcium,Total 8.1 mg/dL (8.5-10.1); Chloride 106 mmol/L (98-107); Creatinine, Serum 0.84 mg/dL (0.55-1.02); EST Glomerular Filtration Rate 81 mL/min (>60); Est Glom Filt Rate - Afr Amer 98 mL/min (>60); Globulin 4.4 g/dL (2.2-4.2); Glucose 158 mg/dL (74-106); Potassium 4.1 mmol/L (3.5-5.1); Protein, Total 7.3 g/dL (6.4-8.2); Sodium Level 137 mmol/L (136-145); T4 Free Direct 1.27 ng/dL (0.76-1.46); Thyroid Stim Hormone (TSH) 0.26 uIU/mL (0.358-3.74)
[2019-08-22 15:52] LABS: Hemoglobin A1c 8.1 % (4.2-6.3)
== END ==
LOC: LAB.FUTURE 13:53 → BFHLAB 13:53
PROVIDERS: Anesthesiology; Family Provider Family Medicine; PCP Family Medicine; Visit Provider Family Medicine
DX: E11.49 Type 2 diabetes mellitus with other diabetic neurological complication (principal); E04.2 Nontoxic multinodular goiter; E78.5 Hyperlipidemia, unspecified; D64.9 Anemia, unspecified
CPT/HCPCS: 80053; 83036; 84439; 84443; 85025

== ENCOUNTER 2019-08-26 11:41 | Day surgery (SDC) | payer MEDICAID, SELFPAY ==
[2019-08-26] VITALS (8 sets, daily range): BP systolic 113–128; BP diastolic 64–84; PULSE 73–84; RESP 16–18; TEMP 36.6–36.8; O2SAT 92–97; BMI 38.3
[2019-08-26] MEDS: Lactated Ringers 1,000 ML 100 ML IV (12:33)
--- NOTE | 2019-08-26 13:07 | PCM.OPRPT ---
Problem List (1) Stress incontinence Status: Acute (2) Urethral hypermobility Status: Acute Report of Operation Date of Procedure: 08/26/19 Pre-Operative Diagnosis: stress incontinence, urethral hypermobility, vaginitis Post-Operative Diagnosis: same Surgery/Procedure Performed:: midurethral sling insertion, cystoscopy, vulvar biopsy Type of Anesthesia:: General Specimen's removed: vulvar biopsy Estimated Blood Loss (mL): 25cc Description of Procedure: The patient is a 38-year-old female that I have been seeing for urinary incontinence. She underwent urodynamics and office cystoscopy and has elected to proceed with a mid urethral sling insertion for treatment of her stress incontinence. She has also had acute vaginitis that we have been managing with steroids. 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 Informed consent was obtained. The patient was taken to the operative and placed on the operating room table. Anesthesia monitored the head, neck, airway, IV access and vital signs throughout the case. Once anesthesia was appropriately administered, the patient was placed into dorsal lithotomy in Trendelenburg position. She was prepped and draped in usual sterile fashion. A 16 [place] White catheter was inserted and the bladder was drained. The mid urethra was identified and injected submucosally with 1% lidocaine with epinephrine. A midline vertical mid urethral incision was made approximately 1.5 cm in length. Sharp and blunt dissection was performed on either side of the urethra. The alto's mid urethral sling was placed using the trochars into the obturator complexes bilaterally. Care taken to avoid entry into the vaginal mucosa and the urethra. The sling was positioned against the urethra without tension. The tensioning suture was cut. The midline incision was closed using running interlocking 2-0 Vicryl. Cystourethroscopy was then performed revealing no entry into the urinary bladder with any foreign object including mesh or suture. Using a punch biopsy 5 mm in size, a biopsy was taken of the patient's vulva. The area was sutured for hemostatic control with 4-0 chromic. Grafts/Implants Used: Altis midurethral sling - Complications none - Admit VTE Documentation VTE Present on Admission: Yes VTE Mechan Device Prophylaxis: SCD's VTE Pharm Prophylaxis ordered?: No Reason prophylaxis not ordered:: Treatment Not Indicated
--- NOTE | 2019-08-26 13:09 | PCM.DC.URO ---
Discharge Diet: No Restrictions Discharge Activity: May not drive while taking narcotic pain medications., May Shower May resume sexual activity in: 4 weeks Additional Activity Instructions:: no lifting over 5 pounds, no strenuous activity, no intercourse, nothing per vagina, no swimming, no vacuuming Call your doctor if you observe: Fever of 101 or Higher, Inability to urinate, Inability to have a bowel movement, Calf discomfort, Uncontrolled pain Allergies/Adverse Reactions: Allergies tramadol HCl [From [facility]] Adverse Reaction (Verified 08/26/19 12:09) Vomiting Medications to take at Discharge RX: Albuterol Inhaler [Ventolin Hfa] 1 - 2 puff INHALATION Q6H PRN PRN 07/31/14 RX: Oxycodone HCl/Acetaminophen [Percocet 5-325] 1 tab PO Q6H PRN PRN #12 tab 02/28/15 RX: ALPRAZolam [Xanax] 0.125 mg PO PRN PRN 02/11/17 liraglutide 0.6 mg/0.1 mL (18 mg/3 mL) subcutaneous pen injector 1.8 mg SC DAILY ml 01/31/18 pantoprazole 40 mg tablet,delayed release 40 mg PO BID 01/31/18 pramipexole 1 mg tablet 1 mg PO BID tab 01/31/18 RX: Insulin Aspart [Novolog Flexpen] 0 units SUBCUT TIDCM 06/11/19 RX: Oxcarbazepine [Trileptal] 300 mg PO BID 06/11/19 RX: Trazodone HCl 50 - 200 mg PO QHS 06/11/19 Ciprofloxacin [Cipro] 500 mg PO BID #12 tab 06/12/19 RX: Acetaminophen 500 mg PO Q6H PRN #1 tab 06/12/19 RX: Citalopram Hydrobromide [Citalopram HBr] 40 mg PO DAILY #0 tab 06/12/19 RX: Hydroxyzine Pamoate [Vistaril] 50 mg PO TID #0 06/12/19 RX: Tizanidine HCl 4 mg PO TID #0 06/12/19 Insulin Glargine,Hum.rec.anlog [Basaglar Kwikpen U-100] 50 unit SQ BID 08/20/19 proMETHazine tablet [Phenergan tablet] 50 mg PO Q8 PRN 12/11/19 Primary Care Physician: Albert Cheatham DO [Primary Care Provider] - Test Results: Test results from this visit will be discussed in further detail at your follow-up appointment, if applicable. Please Follow Up With: Meeta Hidalgo MD When: call office for appt Proposed Discharge Date: 08/26/19
[2019-08-26] MEDS: Cefazolin 2 GM in 0.9% Normal Saline 100 ML IV (13:58)
--- NOTE | 2019-08-26 14:05 | VAGMU_PTH ---
PATIENT: NEIDA MANNING [place] [facility] [place][id number] AGE/SX: 38/F ROOM: RE08/26/[address]: Dr. Meeta Hidalgo MD : 1980 BED: DIS: 08/26/2019 SPEC #: [id number] RECD: 08/26/19 14:58 STATUS: MEDHAT RECheko #: [id number] [place]: 08/26/19 14:[address]: Meeta Hidalgo DEPT: SURGICAL PATHOLOGY RECD BY: Gigi Rod ENTERED: 08/27/19 11:57 SP TYPE: VAG MUCOSA OTHR DR: Dr. Albert Cheatham DO Tissues: Vagina, NOS Procedures: PAS Fungus (control) Special Stain Group I Surgery Specimen Level IV HEADER OPERATION: Cysto midurethral sling, vaginal biopsy PRE-OP DIAGNOSIS: Stress incontinence, vaginitis TISSUE SUBMITTED: Vaginal biopsy MICROSCOPIC DIAGNOSIS Vaginal biopsy: A piece of squamous mucosa with focal ulceration, moderate chronic inflammation and mild acute inflammation. Focal hyperkeratosis and parakeratosis. Special stain for fungi is negative for organisms; matched control is appropriate. ELYSSA:samir 08/28/19 MICROSCOPIC DESCRIPTION Slides are reviewed. GROSS DESCRIPTION Received in fixative is one container labeled with the patient's name and designated vaginal biopsy. The specimen consists of a fragment of leslie mucosal tissue measuring 0.5 x 0.3 x 0.1 cm. The specimen is totally submitted in one cassette. / ELYSSA:samir 08/27/19 TC:3 CPT: 26257, 06764
[2019-08-26] MEDS: Acetaminophen 325 MG Tablet 650 MG PO (16:19)
[2019-08-26] MEDS: oxyCODONE 5 MG Tablet 10 MG PO (16:19)
== END 2019-08-26 17:02 | disposition home or self-care (01) ==
LOC: SDC 11:42 → AC 11:43
PROVIDERS: Family Provider Family Medicine; PCP Family Medicine; Referring Provider Urology; Visit Provider Urology
PROC: 0TJB8ZZ Inspection of Bladder, Via Natural or Artificial Opening Endoscopic (ICD-10-PCS; CPT 57288; principal; 2019-08-26 13:55)
DX: N39.3 Stress incontinence (female) (male) (principal); N36.41 Hypermobility of urethra; N76.0 Acute vaginitis; F41.9 Anxiety disorder, unspecified; F32.9 Major depressive disorder, single episode, unspecified; K21.9 Gastro-esophageal reflux disease without esophagitis; K44.9 Diaphragmatic hernia without obstruction or gangrene; J45.909 Unspecified asthma, uncomplicated; Z86.718 Personal history of other venous thrombosis and embolism; Z79.899 Other long term (current) drug therapy; Z79.4 Long term (current) use of insulin; Z87.891 Personal history of nicotine dependence; M19.90 Unspecified osteoarthritis, unspecified site; E11.42 Type 2 diabetes mellitus with diabetic polyneuropathy; E78.5 Hyperlipidemia, unspecified; G89.29 Other chronic pain; E66.01 Morbid (severe) obesity due to excess calories; G47.33 Obstructive sleep apnea (adult) (pediatric); G25.81 Restless legs syndrome; Z68.38 Body mass index [BMI] 38.0-38.9, adult
CPT/HCPCS: 56605; 57288; 88304; 88305; 88312; J7120; J2405

== ENCOUNTER → 2019-09-12 15:51 | Outpatient (CLI) | payer MEDICAID, SELFPAY ==
[2019-08-26 12:11] VITALS: BMI 38.3
[2019-09-12 19:41] LABS: Chlamydia Trachomatis by PCR Negative (Negative); Neisserai gonorrhoeae by PCR Negative (Negative); Probe Check PASS; Sample Adequacy Control PASS; Specimen Processing Control PASS
[2019-09-15 09:56] LABS: Hepatitis C Antibody Non-Reactive (Nonreactive)
[2019-09-17 19:38] LABS: Rapid Plasmin Reagin (RPR) NONREACTIVE (NONREACTIVE)
[2019-09-18 16:14] LABS: HIV - WCH Non-Reactive (Nonreactive)
== END ==
PROVIDERS: Family Provider Family Medicine; PCP Family Medicine; Referring Provider Family Medicine; Visit Provider Family Medicine
DX: L43.9 Lichen planus, unspecified (principal); Z11.3 Encounter for screening for infections with a predominantly sexual mode of transmission
CPT/HCPCS: 36415; 86592; 86703; 86803; 87491; 87591

== ENCOUNTER → 2020-03-02 10:09 | Outpatient (CLI) | payer MEDICAID, SELFPAY ==
[2020-03-02 10:07] VITALS: BMI 38.3
--- NOTE | 2020-03-02 10:09 | RAD_ITS ---
STUDY: X-RAY - LUMBAR SPINE REASON FOR EXAM: Female, 39 years old. Lbp TECHNIQUE: 4 view(s) of the lumbar spine were obtained. COMPARISON: 05/30/2019 FINDINGS: Normal lumbar lordosis. There is no substantial scoliosis. There is a normal alignment of the vertebrae. Normal vertebral bodies and endplates. Normal disc space heights. There is no demonstrated fracture. Stable bilateral pars defect without spondylolisthesis at L5/S1. No instability noted on the flexion or extension views though range of motion is limited The soft tissue structures are unremarkable. RAD/L/S Spine Min 4 Views IMPRESSION: Degenerative changes of the spine, as detailed above. No acute fracture or instability Stable bilateral pars defect without spondylolisthesis at L5/S1 Electronically Signed: Dutch Currie MD at 10:29 EDT , Service support ,
== END ==
PROVIDERS: PCP Family Medicine; Referring Provider Orthopaedic Surgery; Visit Provider Orthopaedic Surgery
DX: M54.5 Low back pain (principal)
CPT/HCPCS: 72110

== ENCOUNTER → 2020-05-21 14:06 | Outpatient (CLI) | payer MEDICAID, SELFPAY ==
[2020-03-02 10:07] VITALS: BMI 38.3
[2020-05-21 16:54] LABS: Absolute Lymphocyte Count 2.91 X10^3/uL (0.83-4.51); Absolute Neutrophil Count 8.7 X10^3/uL (2.0-7.7); Basophil# 0.07 X10^3/uL; Basophil% 0.5 % (0-1); Eosinophil# 0.47 X10^3/uL; Eosinophils% 3.6 % (0-5); Hematocrit 40.6 % (37-47); Hemoglobin 12.5 g/dL (12.0-15.0); Lymphocyte # 2.91 X10^3/ul (4.0); Lymphocyte % 22.2 % (19-41); Mean Corp Hgb Conc 30.8 g/dL (32-36); Mean Corpuscular Hgb 25.3 pg (27.0-32.0); Mean Corpuscular Volume 82.2 fL (81-99); Mean Platelet Vol. 10.1 fl (6.2-12.0); Monocyte# 0.87 X10^3/uL; Monocyte% 6.7 % (0-10); NRBC Flagged by Analyzer 0 % (0-5); Neutrophil # 8.66 X10^3/uL (2.7-7.7); Neutrophil % 66.2 % (47-70); Platelet Count 362 K/mm3 (150-450); RBC Distribution Width CV 14.2 % (11.6-14.6); RBC Distribution Width SD 41.2 fl (35.1-43.9); Red Blood Count 4.94 M/mm3 (4.2-5.4); White Blood Count 13.1 K/mm3 (4.4-11.0)
[2020-05-21 17:30] LABS: ALB/GLOB Ratio 0.7 RATIO (0.9-2.4); AST(SGOT) 15 U/L (15-37); Alanine Aminotransfer ALT/SGPT 19 U/L (13-56); Alkaline Phosphatase 127 U/L (45-117); Anion Gap 7 (5-15); BUN 8 mg/dL (7-18); BUN/Creat Ratio 12.6 RATIO (10-20); Calcium,Total 8.6 mg/dL (8.5-10.1); Chloride 105 mmol/L (98-107); Creatinine, Serum 0.64 mg/dL (0.55-1.02); EST Glomerular Filtration Rate 111 mL/min (>60); Est Glom Filt Rate - Afr Amer 134 mL/min (>60); Globulin 4.4 g/dL (2.2-4.2); Glucose 78 mg/dL (74-106); Potassium 3.7 mmol/L (3.5-5.1); Protein, Total 7.4 g/dL (6.4-8.2); Sodium Level 140 mmol/L (136-145); T4 Free Direct 1.23 ng/dL (0.76-1.46); Thyroid Stim Hormone (TSH) 0.28 uIU/mL (0.358-3.74)
== END ==
PROVIDERS: PCP Family Medicine; Visit Provider Family Medicine
DX: D64.9 Anemia, unspecified (principal); E11.49 Type 2 diabetes mellitus with other diabetic neurological complication; E78.5 Hyperlipidemia, unspecified; E03.9 Hypothyroidism, unspecified; R05 Cough
CPT/HCPCS: 36415; 80053; 84439; 84443; 85025

== ENCOUNTER → 2020-06-09 11:07 | Outpatient (CLI) | payer MEDICAID, SELFPAY ==
[2020-03-02 10:07] VITALS: BMI 38.3
[2020-06-09 16:03] LABS: HIV - WCH Non-Reactive (Nonreactive)
[2020-06-10 02:04] LABS: Rapid Plasmin Reagin (RPR) NONREACTIVE (NONREACTIVE)
[2020-06-12 03:07] LABS: Chlamydia By Nucleic Acid AMP Negative (Negative)
[2020-06-12 06:08] LABS: Gonococcus By Nucleic Acid AMP Negative (Negative)
== END ==
PROVIDERS: PCP Family Medicine; Visit Provider Family Medicine
DX: E11.49 Type 2 diabetes mellitus with other diabetic neurological complication (principal); E78.5 Hyperlipidemia, unspecified; E03.9 Hypothyroidism, unspecified
CPT/HCPCS: 36415; 86592; 86703; 87491; 87591

== ENCOUNTER → 2020-11-23 14:08 | Outpatient (CLI) | payer MEDICAID, SELFPAY ==
[2020-03-02 10:07] VITALS: BMI 38.3
== END ==
PROVIDERS: PCP Family Medicine; Referring Provider Family Medicine; Visit Provider Family Medicine
DX: R05 Cough (principal)
CPT/HCPCS: 87070; 87077; 87186; 87205

== ENCOUNTER 2021-01-14 07:05 | Day surgery (SDC) | payer MEDICAID, SELFPAY ==
[2020-12-23 10:05] VITALS: BMI 32.5
[2021-01-14] VITALS (7 sets, daily range): BP systolic 98–113; BP diastolic 66–74; PULSE 65–87; RESP 16; TEMP 36.6–36.8; O2SAT 93–96; BMI 32.8
--- NOTE | 2021-01-14 07:00 | HP_ITS ---
Intake Vital Signs 12/23/20 Height 5 ft 7 in 12/23/20 Weight: 208 lb 12/23/20 BMI 32.5 12/23/20 BP 119/77 12/23/20 Blood Pressure Location Rt brachial 12/23/20 Position Sitting 12/23/20 Respiration 18 Intake Visit Reasons: EGD, HX NAUSEA, CHRONIC HEARTBURN Chief Complaint: gerd, N&V Systems Manager Required: No Is patient in pain?: Yes (abdomen) Allergies levothyroxine Allergy (Mild, Verified 12/23/20 10:06) PT UNSURE OF REACTION tramadol HCl [From [facility]] Adverse Reaction (Verified 03/02/20 10:24) Vomiting Medications Oxycodone HCl/Acetaminophen [Percocet 5-325] 1 tab PO Q6H PRN PRN #12 tab 02/28/15 [Rx Confirmed 12/23/20] ALPRAZolam [Xanax] 0.125 mg PO PRN PRN 02/11/17 [History Confirmed 12/23/20] liraglutide 0.6 mg/0.1 mL (18 mg/3 mL) subcutaneous pen injector 1.8 mg SC DAILY ml 01/31/18 [History Confirmed 12/23/20] pantoprazole 40 mg tablet,delayed release 40 mg PO BID 01/31/18 [History Confirmed 12/23/20] pramipexole 1 mg tablet 1 mg PO BID tab 01/31/18 [History Confirmed 12/23/20] Oxcarbazepine [Trileptal] 300 mg PO BID 06/11/19 [History Confirmed 12/23/20] Trazodone HCl 50 - 200 mg PO QHS 06/11/19 [History Confirmed 12/23/20] Citalopram Hydrobromide [Citalopram HBr] 40 mg PO DAILY #0 tab 06/12/19 [Rx Confirmed 12/23/20] Hydroxyzine Pamoate [Vistaril] 50 mg PO TID #0 06/12/19 [Rx Confirmed 12/23/20] Tizanidine HCl 4 mg PO TID #0 06/12/19 [Rx Confirmed 12/23/20] albuterol sulfate 90 mcg/actuation aerosol inhaler 1 inh INHALATION ONCE 12/23/20 [History Confirmed 12/23/20] apixaban 5 mg tablet 5 mg PO BID 12/23/20 [History Confirmed 12/23/20] clonidine HCl 0.1 mg tablet 0.1 mg PO QHS 12/23/20 [History Confirmed 12/23/20] clotrimazole 1 %-betamethasone 0.05 % cream-zinc ox 20 % paste topical See Rx Instructions TOPICAL .COMPLEX 12/23/20 [History Confirmed 12/23/20] fluticasone furoate 100 mcg-vilanterol 25 mcg/dose inhalation powder 1 inh INHALATION DAILY 12/23/20 [History Confirmed 12/23/20] insulin NPH-regular 70-30 U-100 insulin 100 unit/mL subcutaneous pen 50 unit SC DAILY ml 12/23/20 [History Confirmed 12/23/20] meclizine 25 mg tablet 25 mg PO DAILY 12/23/20 [History Confirmed 12/23/20] nicotine 7 mg/24 hr daily transdermal patch 1 patch TD Q24H 12/23/20 [History Confirmed 12/23/20] nortriptyline 10 mg capsule 10 mg PO DAILY 12/23/20 [History Confirmed 12/23/20] oxybutynin chloride 10 mg tablet,extended release 24 hr 10 mg PO DAILY 12/23/20 [History Confirmed 12/23/20] pregabalin 100 mg capsule 100 mg PO TID 12/23/20 [History Confirmed 12/23/20] solifenacin 5 mg tablet 5 mg PO DAILY 12/23/20 [History Confirmed 12/23/20] sucralfate 100 mg/mL oral suspension 10 ml PO BID 12/23/20 [History Confirmed 12/23/20] sumatriptan succinate 100 mg tablet 100 mg PO ONCE 12/23/20 [History Confirmed 12/23/20] triamcinolone acetonide 0.1 % topical cream 1 applic TOPICAL DAILY 12/23/20 [History Confirmed 12/23/20] [facility] Medical History Chronic ethmoidal sinusitis (Chronic) Depression (Chronic) Rosacea (Chronic) Anxiety (Chronic) Morbid obesity (Chronic) Atopic dermatitis (Chronic) Chronic mastoiditis (Chronic) Myalgia and myositis (Chronic) Peripheral edema (Chronic) SIERRA (obstructive sleep apnea) (Chronic) Restless legs syndrome (Chronic) Chronic back pain (Chronic) Acute DVT (deep venous thrombosis) (Resolved) Hyperlipidemia (Chronic) Sarcoidosis (Suspected) Asthma (Chronic) GERD (gastroesophageal reflux disease) (Chronic) DM type 2 (diabetes mellitus, type 2) (Chronic) Peripheral neuropathy (Chronic) Arthritis (Acute) Bone fracture (Acute) Recurrent UTI (Acute) Seasonal allergies (Acute) Surgical History history of sinusplasty (Resolved) History of tubal ligation (Resolved) History of total hysterectomy (Resolved) History of cholecystectomy (Resolved) lymph node removal (Acute) Family History Father Diabetes Asthma Brother Asthma Unknown Asthma Arthritis Diabetes Heart disease Hypertension Thyroid disorder Social History (Updated 12/23/20 @ 10:[address] Mike Hendrix MD) Smoking Status: Former smoker alcohol intake: never substance use type: does not use HPI HPI HPI: NEIDA MANNING, is a 40 F who presents to the office today for HPI HPI Surgical H&P: Yes HPI: NEIDA MANNING, is a 40 F who presents to the office today for dysphagia. The patient reports that she is having nausea vomiting and acid reflux and feeling burning in her chest and she is having difficulty swallowing. 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 The patient is not currently on steroids. She has been on a PPI twice a day since then. ROS General General: Yes weight change; no fatigue HEENT HEENT: Yes difficulty swallowing Endo Endocrine: Yes thyroid disease and diabetes mellitus Skin Skin: Yes rash and changing moles Musc Musculoskeletal: Yes back problems and arthritis Cardio Cardiovascular: No murmur, pacemaker, heart disease, atrial fibrillation, high blood pressure, heart attack, heart stent, palpitations, shortness of breat with exertion or chest pain Psych Psychiatric: Yes depression and anxiety Resp Respiratory: Yes shortness of breath, Yes sleep apnea, Yes cough, No COPD, No asthma, No emphysema, No wheezing Gastro Gastrointestinal: Yes abdominal pain, Yes nausea or vomiting, Yes diarrhea, Yes constipation, Yes blood in stool, Yes acid reflux, No hemorrhoids, No ulcers, No gallbladder problem, No black,tarry stools Clem Hematologic: Yes blood thinners, Yes blood disorders, Yes blood clots Exam Const General: cooperative Orientation: alert, oriented x3 Resp Effort & Inspection: normal respiratory effort Auscultation: clear to auscultation bilaterally Cardio Rate: regular rate Rhythm: regular rhythm Heart Sounds: no murmurs GI Inspection: non-distended Palpation: soft, nontender Assessment & Plan Problems 1. Esophageal dysphagia R13.10 2. Lichen planus L43.9 Plan The patient is having dysphagia as well as nausea vomiting and chest pain with reflux. She has a history of EGD in 2019 with lichen planus of the esophagus with narrowing. I advised her that I can perform an EGD to take pictures and assess the narrowing as well as perform biopsies but she would need to be started on steroids by her PCP and she is okay with that. I explained endoscopy in detail to the patient. I explained the risks including but not limited to stroke or heart attack with anesthesia, perforation of the GI tract, bleeding, infection. I explained that any of these could necessitate further emergency surgery. The patient understands and all questions were answered sufficiently. The patient wishes to proceed with procedure. Mike Hendrix MD Pager: [facility] [address] [place] [address], [address] [place] [address] Office: Orders Orders: EGD Today L43.9, R13.10 Coding Level of Care Code Off vis,new,level 3 Diagnoses Esophageal dysphagia R13.10 ??Dysphagia type: esophageal phase Lichen planus L43.9
[2021-01-14] MEDS: Lactated Ringers 1,000 ML 100 ML IV (07:37)
[2021-01-14 07:46] LABS: Bedside Glucose 153 mg/dL (70-110)
--- NOTE | 2021-01-14 07:58 | PCM.HP.BLA ---
History and Physical Date of Admission: 01/14/21 Insert H&PIntake Vital Signs 12/23/20 Height 5 ft 7 in 12/23/20 Weight: 208 lb 12/23/20 BMI 32.5 12/23/20 BP 119/77 12/23/20 Blood Pressure Location Rt brachial 12/23/20 Position Sitting 12/23/20 Respiration 18 Intake Visit Reasons: EGD, HX NAUSEA, CHRONIC HEARTBURN Chief Complaint: gerd, N&V Internal Medicine Doctor Required: No Is patient in pain?: Yes (abdomen) Allergies levothyroxine Allergy (Mild, Verified 12/23/20 10:06) PT UNSURE OF REACTION tramadol HCl [From [facility]] Adverse Reaction (Verified 03/02/20 10:24) Vomiting Medications Oxycodone HCl/Acetaminophen [Percocet 5-325] 1 tab PO Q6H PRN PRN #12 tab 02/28/15 [Rx Confirmed 12/23/20] ALPRAZolam [Xanax] 0.125 mg PO PRN PRN 02/11/17 [History Confirmed 12/23/20] liraglutide 0.6 mg/0.1 mL (18 mg/3 mL) subcutaneous pen injector 1.8 mg SC DAILY ml 01/31/18 [History Confirmed 12/23/20] pantoprazole 40 mg tablet,delayed release 40 mg PO BID 01/31/18 [History Confirmed 12/23/20] pramipexole 1 mg tablet 1 mg PO BID tab 01/31/18 [History Confirmed 12/23/20] Oxcarbazepine [Trileptal] 300 mg PO BID 06/11/19 [History Confirmed 12/23/20] Trazodone HCl 50 - 200 mg PO QHS 06/11/19 [History Confirmed 12/23/20] Citalopram Hydrobromide [Citalopram HBr] 40 mg PO DAILY #0 tab 06/12/19 [Rx Confirmed 12/23/20] Hydroxyzine Pamoate [Vistaril] 50 mg PO TID #0 06/12/19 [Rx Confirmed 12/23/20] Tizanidine HCl 4 mg PO TID #0 06/12/19 [Rx Confirmed 12/23/20] albuterol sulfate 90 mcg/actuation aerosol inhaler 1 inh INHALATION ONCE 12/23/20 [History Confirmed 12/23/20] apixaban 5 mg tablet 5 mg PO BID 12/23/20 [History Confirmed 12/23/20] clonidine HCl 0.1 mg tablet 0.1 mg PO QHS 12/23/20 [History Confirmed 12/23/20] clotrimazole 1 %-betamethasone 0.05 % cream-zinc ox 20 % paste topical See Rx Instructions TOPICAL .COMPLEX 12/23/20 [History Confirmed 12/23/20] fluticasone furoate 100 mcg-vilanterol 25 mcg/dose inhalation powder 1 inh INHALATION DAILY 12/23/20 [History Confirmed 12/23/20] insulin NPH-regular 70-30 U-100 insulin 100 unit/mL subcutaneous pen 50 unit SC DAILY ml 12/23/20 [History Confirmed 12/23/20] meclizine 25 mg tablet 25 mg PO DAILY 12/23/20 [History Confirmed 12/23/20] nicotine 7 mg/24 hr daily transdermal patch 1 patch TD Q24H 12/23/20 [History Confirmed 12/23/20] nortriptyline 10 mg capsule 10 mg PO DAILY 12/23/20 [History Confirmed 12/23/20] oxybutynin chloride 10 mg tablet,extended release 24 hr 10 mg PO DAILY 12/23/20 [History Confirmed 12/23/20] pregabalin 100 mg capsule 100 mg PO TID 12/23/20 [History Confirmed 12/23/20] solifenacin 5 mg tablet 5 mg PO DAILY 12/23/20 [History Confirmed 12/23/20] sucralfate 100 mg/mL oral suspension 10 ml PO BID 12/23/20 [History Confirmed 12/23/20] sumatriptan succinate 100 mg tablet 100 mg PO ONCE 12/23/20 [History Confirmed 12/23/20] triamcinolone acetonide 0.1 % topical cream 1 applic TOPICAL DAILY 12/23/20 [History Confirmed 12/23/20] [facility] Medical History Chronic ethmoidal sinusitis (Chronic) Depression (Chronic) Rosacea (Chronic) Anxiety (Chronic) Morbid obesity (Chronic) Atopic dermatitis (Chronic) Chronic mastoiditis (Chronic) Myalgia and myositis (Chronic) Peripheral edema (Chronic) SIERRA (obstructive sleep apnea) (Chronic) Restless legs syndrome (Chronic) Chronic back pain (Chronic) Acute DVT (deep venous thrombosis) (Resolved) Hyperlipidemia (Chronic) Sarcoidosis (Suspected) Asthma (Chronic) GERD (gastroesophageal reflux disease) (Chronic) DM type 2 (diabetes mellitus, type 2) (Chronic) Peripheral neuropathy (Chronic) Arthritis (Acute) Bone fracture (Acute) Recurrent UTI (Acute) Seasonal allergies (Acute) Surgical History history of sinusplasty (Resolved) History of tubal ligation (Resolved) History of total hysterectomy (Resolved) History of cholecystectomy (Resolved) lymph node removal (Acute) Family History Father Diabetes Asthma Brother Asthma Unknown Asthma Arthritis Diabetes Heart disease Hypertension Thyroid disorder Social History (Updated 12/23/20 @ 10:[address] Mike Hendrix MD) Smoking Status: Former smoker alcohol intake: never substance use type: does not use HPI HPI HPI: NEIDA MANNING, is a 40 F who presents to the office today for HPI HPI Surgical H&P: Yes HPI: NEIDA MANNING, is a 40 F who presents to the office today for dysphagia. The patient reports that she is having nausea vomiting and acid reflux and feeling burning in her chest and she is having difficulty swallowing. 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 The patient is not currently on steroids. She has been on a PPI twice a day since then. ROS General General: Yes weight change; no fatigue HEENT HEENT: Yes difficulty swallowing Endo Endocrine: Yes thyroid disease and diabetes mellitus Skin Skin: Yes rash and changing moles Musc Musculoskeletal: Yes back problems and arthritis Cardio Cardiovascular: No murmur, pacemaker, heart disease, atrial fibrillation, high blood pressure, heart attack, heart stent, palpitations, shortness of breat with exertion or chest pain Psych Psychiatric: Yes depression and anxiety Resp Respiratory: Yes shortness of breath, Yes sleep apnea, Yes cough, No COPD, No asthma, No emphysema, No wheezing Gastro Gastrointestinal: Yes abdominal pain, Yes nausea or vomiting, Yes diarrhea, Yes constipation, Yes blood in stool, Yes acid reflux, No hemorrhoids, No ulcers, No gallbladder problem, No black,tarry stools Clem Hematologic: Yes blood thinners, Yes blood disorders, Yes blood clots Exam Const General: cooperative Orientation: alert, oriented x3 Resp Effort & Inspection: normal respiratory effort Auscultation: clear to auscultation bilaterally Cardio Rate: regular rate Rhythm: regular rhythm Heart Sounds: no murmurs GI Inspection: non-distended Palpation: soft, nontender Assessment & Plan Problems 1. Esophageal dysphagia R13.10 2. Lichen planus L43.9 Plan The patient is having dysphagia as well as nausea vomiting and chest pain with reflux. She has a history of EGD in 2019 with lichen planus of the esophagus with narrowing. I advised her that I can perform an EGD to take pictures and assess the narrowing as well as perform biopsies but she would need to be started on steroids by her PCP and she is okay with that. I explained endoscopy in detail to the patient. I explained the risks including but not limited to stroke or heart attack with anesthesia, perforation of the GI tract, bleeding, infection. I explained that any of these could necessitate further emergency surgery. The patient understands and all questions were answered sufficiently. The patient wishes to proceed with procedure. Mike Hendrix MD Pager: [facility] [address] [place] [address], [address] [place] [address] Office: I have re-examined the patient. There are no clinical changes since date of exam. Assessment & Plan Assessment/Plan (1) Dysphagia: QUALIFIERS: Dysphagia type: esophageal phase Qualified Code(s): R13.10 - Dysphagia, unspecified (2) Lichen planus:
--- NOTE | 2021-01-14 08:16 | OP.EGD_ITS ---
Patient Name: Anne Marie Lepe Procedure Date: 01/14/2021 8:01 AM Date of : 1980 Age: 40 Procedure: Upper GI endoscopy Indications: Dysphagia Providers: Mike Hendrix MD Referring MD: Albert Cheatham Medicines: Monitored Anesthesia Care Patient Profile: This is a 40 year old female. Refer to note in patient chart for documentation of history and physical. Complications: No immediate complications. Estimated blood loss: Minimal. Procedure: Pre-Anesthesia Assessment: - Prior to the procedure, a History and Physical was performed, and patient medications and allergies were reviewed. The patient's tolerance of previous anesthesia was also reviewed. The risks and benefits of the procedure and the sedation options and risks were discussed with the patient. All questions were answered, and informed consent was obtained. Prior Anticoagulants: The patient has taken no previous anticoagulant or antiplatelet agents. After reviewing the risks and benefits, the patient was deemed in satisfactory condition to undergo the procedure. After obtaining informed consent, the endoscope was passed under direct vision. Throughout the procedure, the patient's blood pressure, pulse, and oxygen saturations were monitored continuously. The gastroscope was introduced through the mouth, and advanced to the lower third of esophagus. The upper GI endoscopy was accomplished without difficulty. The patient tolerated the procedure. Scope In: 8:10:22 AM Scope Out: 8:12:01 AM Total Procedure Duration Time 0 hours 1 minute 39 seconds Findings: Intrinsic stenosis was found in the entire esophagus. This stenosis was severe. The insufflation from the scope started a mucosal break which extended distally. The stenosis was not traversed due to risk of perforation. Impression: - Benign-appearing esophageal stenoses. - No specimens collected. Recommendation: - Discharge patient to home. - Soft diet. - Continue present medications. Procedure Code(s): --- Professional --- 06304, Esophagoscopy, flexible, transoral; diagnostic, including collection of specimen(s) by brushing or washing, when performed (separate procedure) Diagnosis Code(s): --- Professional --- K22.2, Esophageal obstruction R13.10, Dysphagia, unspecified CPT copyright 2017 [employer]. All rights reserved. The codes documented in this report are preliminary and upon supervisor forming department review may be revised to meet current compliance requirements. Mike Hendrix MD 01/14/2021 8:16:32 AM This report has been signed electronically. Number of Addenda: 0 Note Initiated On: 01/14/2021 8:01 AM
--- NOTE | 2021-01-14 08:17 | OP.CCLET_ITS ---
01/14/2021 Albert Cheatham [address] [place] [address] Re : Upper GI endoscopy procedure for Anne Marie Lepe Dear Dr. Cheatham This procedure was performed on Thursday, January 14, 2021. My impressions and recommendations are as follows: Impressions : - Benign-appearing esophageal stenoses. - No specimens collected. Recommendations : - Discharge patient to home. - Soft diet. - Continue present medications. My findings are described in the full procedure note, which is enclosed. If I can be of further assistance, please feel free to contact me at Doctor phone number(s): , Work: . Sincerely, Mike Hendrix MD 01/14/2021 8:16:32 AM This report has been signed electronically.
== END 2021-01-14 09:11 ==
LOC: EN 07:05 → AC 07:05
PROVIDERS: PCP Family Medicine; Referring Provider Family Medicine; Visit Provider Surgery
PROC: 0DJ08ZZ Inspection of Upper Intestinal Tract, Via Natural or Artificial Opening Endoscopic (ICD-10-PCS; CPT 43235; principal; 2021-01-14 07:55)
DX: K22.2 Esophageal obstruction (principal); K21.9 Gastro-esophageal reflux disease without esophagitis; J45.909 Unspecified asthma, uncomplicated; E11.42 Type 2 diabetes mellitus with diabetic polyneuropathy; F32.9 Major depressive disorder, single episode, unspecified; F41.9 Anxiety disorder, unspecified; G25.81 Restless legs syndrome; E66.01 Morbid (severe) obesity due to excess calories; G47.33 Obstructive sleep apnea (adult) (pediatric); M19.90 Unspecified osteoarthritis, unspecified site; Z90.49 Acquired absence of other specified parts of digestive tract; Z90.710 Acquired absence of both cervix and uterus; Z98.51 Tubal ligation status; Z68.32 Body mass index [BMI] 32.0-32.9, adult; Z79.01 Long term (current) use of anticoagulants; Z79.4 Long term (current) use of insulin; Z79.899 Other long term (current) drug therapy; Z87.891 Personal history of nicotine dependence
CPT/HCPCS: 43235; 82962; 87426; C9803; J7120; J2405

== ENCOUNTER 2021-04-29 18:44 | Emergency (ER) | payer MEDICAID, SELFPAY ==
[2021-04-29 18:44] VITALS: BP 141/76; PULSE 108; RESP 24; TEMP 38.6; O2SAT 92; BMI 32.1
--- NOTE | 2021-04-29 19:27 | RAD_ITS ---
STUDY: X-RAY CHEST REASON FOR EXAM: Female, 40 years old. SOB TECHNIQUE: Single AP portable view of the chest. COMPARISON: May 30, 2019 FINDINGS: Mild patchy infiltrates are present in the bilateral lower lobe perihilar regions. There is no demonstrated pleural abnormality. Normal size heart. Normal mediastinum and khoi. Normal visualized pulmonary arteries. Normal visualized aortic arch and descending thoracic aorta. Normal visualized thoracic spine. Normal visualized ribs, clavicles, and shoulders. There is no demonstrated abnormality of the visualized soft tissue structures of the upper abdomen. RAD/Chest 1 View (Portable) IMPRESSION: Mild bilateral lower lobe perihilar infiltrates. Electronically Signed: Fili Ojeda MD at 20:39 EDT , Service support ,
--- NOTE | 2021-04-29 19:28 | EKG12_ITS ---
Test Reason : DYSRHYTHMIA Blood Pressure : / mmHG Vent. Rate : 093 BPM Atrial Rate : 093 BPM P-R Int : 156 ms QRS Dur : 090 ms QT Int : 346 ms P-R-T Axes : 037 060 031 degrees QTc Int : 430 ms Normal sinus rhythm Normal ECG Confirmed by EULOGIO LAW, SD ([id number]), managing editor RODRICK CANALES ([id number]) on 05/02/2021 1:39:37 PM Referred By: MAG Confirmed By:CHRISTIANO KRISHNAN MD
[2021-04-29 19:43] LABS: Absolute Lymphocyte Count 2.63 X10^3/uL (0.83-4.51); Basophil# 0.09 X10^3/uL; Basophil% 0.6 % (0-1); Eosinophils% 2.5 % (0-5); Hematocrit 36.6 % (37-47); Hemoglobin 11.8 g/dL (12.0-15.0); Lymphocyte # 2.63 X10^3/ul (0.83-4.51); Lymphocyte % 16.2 % (19-41); Mean Corp Hgb Conc 32.2 g/dL (32-36); Mean Corpuscular Volume 80.6 fL (81-99); Mean Platelet Vol. 10.3 fl (6.2-12.0); Monocyte% 6.1 % (0-10); NRBC Flagged by Analyzer 0 % (0-5); Neutrophil # 12.02 X10^3/uL (2.7-7.7); Neutrophil % 73.8 % (47-70); Platelet Count 324 K/mm3 (150-450); RBC Distribution Width CV 13.9 % (11.6-14.6); RBC Distribution Width SD 40.6 fl (35.1-43.9); Red Blood Count 4.54 M/mm3 (4.2-5.4); White Blood Count 16.3 K/mm3 (4.4-11.0)
[2021-04-29 19:58] LABS: ALB/GLOB Ratio 0.7 RATIO (0.9-2.4); AST(SGOT) 16 U/L (15-37); Alanine Aminotransfer ALT/SGPT 16 U/L (13-56); Albumin, Serum 2.9 g/dL (3.2-5.0); Alkaline Phosphatase 104 U/L (45-117); Anion Gap 5 (5-15); BUN 9 mg/dL (7-18); Calcium,Total 8.5 mg/dL (8.5-10.1); Chloride 106 mmol/L (98-107); Creatinine, Serum 0.53 mg/dL (0.55-1.02); EST Glomerular Filtration Rate 136 mL/min (>60); Est Glom Filt Rate - Afr Amer 165 mL/min (>60); Estimated Creatinine Clearance 138.58 ml/min; Globulin 4.4 g/dL (2.2-4.2); Glucose 122 mg/dL (74-106); Protein, Total 7.3 g/dL (6.4-8.2); Sodium Level 137 mmol/L (136-145)
--- NOTE | 2021-04-29 20:02 | EDS_ITS ---
HPI History of Present Illness Chief Complaint: Fever Informant: patient Onset/Context/Timing Onset: Yesterday Context: Gradual Onset Timing: Continuous Quality: Aching Location: Generalized Worsened by: Nothing Relieved by: Nothing Narrative Narrative: Patient presents with body aches and fevers that began yesterday. Patient states she did not check her temperature at home but felt feverish. Patient admits to generalized body aches. Patient admits to a cough with some green sputum. Patient also admits to some rhinorrhea and sore throat. Patient states her symptoms wax and wane throughout the day and are usually worse at night. Patient states nothing makes them better nothing makes them worse. Patient admits to some generalized weakness. [facility] Medical History Acute DVT (deep venous thrombosis) Anxiety Arthritis Asthma Atopic dermatitis Back pain Bone fracture Chronic back pain Chronic cough Chronic ethmoidal sinusitis Chronic mastoiditis Chronic pain CPAP (continuous positive airway pressure) dependence Depression Diabetes DM type 2 (diabetes mellitus, type 2) DVT (deep venous thrombosis) GERD (gastroesophageal reflux disease) GERD (gastroesophageal reflux disease) Hx of lichen planus Hyperlipidemia Hypothyroidism Loose, teeth Migraine headache Morbid obesity Myalgia and myositis SIERRA (obstructive sleep apnea) Peripheral edema Peripheral neuropathy Pulmonary embolism Recurrent UTI Restless legs syndrome Rosacea Sarcoidosis Seasonal allergies Smoker Wears hearing aid in both ears Home Medications oxycodone-acetaminophen 1 tab PO Q6H PRN PRN #12 tab 02/28/15 [Rx Last Taken 08/26/19] liraglutide 0.6 mg/0.1 mL (18 mg/3 mL) subcutaneous pen injector 1.8 mg SC DAILY ml 01/31/18 [History Last Taken 06/11/19] pantoprazole 40 mg tablet,delayed release 40 mg PO BID 01/31/18 [History Last Taken 01/14/21] pramipexole 1 mg tablet 1 mg PO BID tab 01/31/18 [History Last Taken 01/14/21] oxcarbazepine 300 mg PO BID 06/11/19 [History Last Taken 06/10/19] trazodone 50 - 200 mg PO QHS 06/11/19 [History Last Taken 01/14/21] citalopram 40 mg PO DAILY #0 tab 06/12/19 [Rx Last Taken 06/10/19] hydroxyzine pamoate 50 mg PO TID #0 06/12/19 [Rx Last Taken 06/10/19] tizanidine 4 mg PO TID #0 06/12/19 [Rx Last Taken 06/10/19] albuterol sulfate 90 mcg/actuation aerosol inhaler 1 inh INHALATION PRN PRN 12/23/20 [History Last Taken Unknown] apixaban 5 mg tablet 5 mg PO BID 12/23/20 [History Last Taken Unknown] insulin NPH-regular 70-30 U-100 insulin 100 unit/mL subcutaneous pen 40 unit SC BID ml 12/23/20 [History Last Taken Unknown] oxybutynin chloride 10 mg tablet,extended release 24 hr 10 mg PO DAILY 12/23/20 [History Last Taken Unknown] pregabalin 100 mg capsule 100 mg PO TID 12/23/20 [History Last Taken Unknown] triamcinolone acetonide 0.1 % topical cream 1 applic TOPICAL PRN PRN 12/23/20 [History Last Taken 01/14/21] butabarbital-belladonna 1 tab PO PRN PRN 01/12/21 [History Last Taken Unknown] azithromycin 250 mg PO DAILY #4 tablet 04/29/21 [Rx Last Taken Unknown] Allergy/AdvReac Type Severity Reaction Status Date / Time levothyroxine Allergy Mild PT UNSURE Verified 04/29/21 18:46 OF REACTION tramadol HCl [From Ultram] AdvReac Vomiting Verified 04/29/21 18:46 Family History Father Diabetes Asthma Brother Asthma Unknown Asthma Arthritis Diabetes Heart disease Hypertension Thyroid disorder Surgical History History of cholecystectomy history of sinusplasty History of total hysterectomy History of tubal ligation Hx of cystoscopy lymph node removal Social History Smoking Status: Current every day smoker tobacco type: cigarettes alcohol intake: never substance use type: does not use ROS ROS ED Constitutional Constitutional ED: Reports chills, fever(s) and subjective Eyes Eyes: Denies blurry vision or change in vision ENT ENT ED: Reports rhinorrhea and sore throat Cardiovascular Cardiovascular: Reports chest pain; Denies palpitations Respiratory/Chest Respiratory/Chest: Reports cough, dyspnea and sputum Gastrointestinal Gastrointestinal: Reports nausea; Denies vomiting Genitourinary Genitourinary ED: Denies dysuria or hematuria Musculoskeletal Musculoskeletal: Reports back pain, myalgias and neck pain Integumentary Denies abscess or rash Neurologic Neurologic: Reports headache(s) and weakness Allergic/Immunologic Allergic/Immunologic ED: Denies mouth swelling or urticaria EXAM Physical Exam Const Vital Signs: 04/29/21 18:44 04/29/21 20:07 04/29/21 20:15 Temperature 101.4 F H Temperature Source Temporal Pulse Rate 108 H Respiratory Rate 24 H 20 H Blood Pressure 141/76 H Blood Pressure Mean 97 Pulse Ox 92 93 Oxygen Delivery Method Room Air Room Air Nasal Cannula Oxygen Flow Rate (L/min) 2 04/29/21 22:43 Temperature 98.0 F Temperature Source Oral Pulse Rate 78 Respiratory Rate 20 H Blood Pressure 119/58 L Blood Pressure Mean 78 Pulse Ox 92 Oxygen Delivery Method Room Air Oxygen Flow Rate (L/min) Positive well nourished and well developed General Appearance ED: well developed Neck supple and no JVD Resp normal respiratory effort Auscultation: rhonchi Cardio regular rate and regular rhythm GI normal to inspection, nondistended, normoactive bowel sounds and non-tender Palpation: soft Neuro oriented x3, CN's II-XII intact bilaterally and no sensory deficits noted Sensorium / Orientation: alert Motor Exam: strength 5/5 throughout Psych mental status grossly normal MDM MDM MDM Narrative Medical decision making narrative: EKG was obtained. On my interpretation, it showed a normal sinus rhythm with a rate of 93. AL interval, QRS interval, and QTc intervals were all normal. [place] was normal. There are no acute ST or T wave changes. Portable 1 view chest x-ray was obtained. On my interpretation, there are mild bilateral lower lobe perihilar infiltrates. There is normal cardiac silhouette. Bony thorax is normal. Radiologist also interpreted the x- ray and agrees. CBC shows a leukocytosis of 16.3. Comprehensive metabolic profile was within normal limits. Lactate was normal. COVID-19 rapid antigen was obtained and was negative. Patient is feeling better on reevaluation. Patient's oxygen was turned off. Patient maintained oxygen saturation of 91% on room air. Patient was given a dose of Rocephin and Zithromax here. Patient was given a prescription for Zithromax. Patient was instructed to follow-up with her primary care physician in 5 to 7 days. Patient was instructed return if worse in any way. Patient understood and was agreeable with the plan. All questions were answered. Lab Data Attestation: I reviewed the patient's lab results. Labs: Laboratory Results - last 24 hr 04/29/21 04/29/21 04/29/21 19:28 19:28 19:28 WBC 16.3 H RBC 4.54 Hgb 11.8 L Hct 36.6 L MCV 80.6 L MCH 26.0 L MCHC 32.2 RDW Std Deviation 40.6 RDW Coeff of Karina 13.9 Plt Count 324 MPV 10.3 Immature Gran % (Auto) 0.800 Neut % (Auto) 73.8 H Lymph % (Auto) 16.2 L [place] % (Auto) 6.1 Eos % (Auto) 2.5 Baso % (Auto) 0.6 Absolute Neuts (auto) 12.0 H Absolute Lymphs (auto) 2.63 Nucleated RBC % 0 Sodium 137 Potassium 4.0 Chloride 106 Carbon Dioxide 26.0 Anion Gap 5 BUN 9 Creatinine 0.53 L Estim Creat Clear Calc 138.58 Est GFR (MDRD) Af Amer 165 Est GFR (MDRD) Non-Af 136 BUN/Creatinine Ratio 17.0 Glucose 122 H Lactic Acid 1.5 Calcium 8.5 Total Bilirubin 0.30 AST 16 ALT 16 Alkaline Phosphatase 104 Total Protein 7.3 Albumin 2.9 L Globulin 4.4 H Albumin/Globulin Ratio 0.7 L Radiography Chest X-Ray - ED: 1 View, Read by ED Physician, Read by Radiologist, Right Infiltrate and Left Infiltrate Diagnostic Testing: Radiology Impression Chest X-Ray 04/29/21 19:27 IMPRESSION: Mild bilateral lower lobe perihilar infiltrates. Electronically Signed: Fili Ojeda MD at 20:39 EDT , Service support , EKG Initial EKG: Attestation: I personally reviewed and interpreted this EKG as follows: Interpretation: Sinus Rhythm (93) and No Acute Injury Pattern Prior EKG tracings: available for review Prior: Unchanged (05/30/2019) Discharge Plan Triage Chief Complaint: Fever ED Provider: Geovanny Granados Dx/Rx/DC Orders Clinical Impression: Pneumonia Instructions: ED Pneumonia (Adult) Prescriptions: New azithromycin [azithromycin] 250 MG tablet 250 mg PO DAILY Qty: 4 RF: 0 No Action liraglutide [Victoza 2-Kobe] 0.6 mg/0.1 mL (18 mg/3 mL) pen injector 1.8 mg SC DAILY RF: 0 Eliquis 5 mg tablet 5 mg PO BID RF: 0 pregabalin [Lyrica] 100 mg capsule 100 mg PO TID RF: 0 oxybutynin chloride 10 mg tablet extended release 24hr 10 mg PO DAILY RF: 0 triamcinolone acetonide 0.1 % cream 1 applic TOPICAL PRN PRN (Reason: Skin Cleansing) RF: 0 albuterol sulfate [Ventolin HFA] 90 mcg/actuation HFA aerosol inhaler 1 inh INHALATION PRN PRN (Reason: short) RF: 0 Novolin 70-30 FlexPen U-100 100 unit/mL (70-30) insulin pen 40 unit SC BID RF: 0 pantoprazole 40 mg tablet,delayed release (DR/EC) 40 mg PO BID RF: 0 pramipexole 1 mg tablet 1 mg PO BID RF: 0 oxycodone-acetaminophen 1 TABLET tablet 1 tab PO Q6H PRN PRN (Reason: Moderate Pain) Qty: 12 RF: 0 oxcarbazepine 300 mg tablet 300 mg PO BID RF: 0 trazodone 100 MG tablet 50 - 200 mg PO QHS RF: 0 citalopram 40 mg tablet 40 mg PO DAILY Qty: 0 RF: 0 tizanidine 4 MG tablet 4 mg PO TID Qty: 0 RF: 0 hydroxyzine pamoate 50 mg capsule 50 mg PO TID Qty: 0 RF: 0 butabarbital-belladonna 15-15 mg Tablet 1 tab PO PRN PRN (Reason: Migraine Headache) RF: 0 Primary Care Provider: Albert Cheatham Referrals: Albert Cheatham DO [Primary Care Provider] - 3-5 Days Disposition Disposition: Home, Self Care
[2021-04-29 20:07] VITALS: RESP 20; O2SAT 93
[2021-04-29] MEDS: Acetaminophen 500 MG Tablet 1000 MG PO (20:16)
[2021-04-29 20:28] LABS: Lactic Acid 1.5 mmol/L (0.4-1.9)
[2021-04-29 22:43] VITALS: BP 119/58; PULSE 78; RESP 20; TEMP 36.7; O2SAT 92
[2021-04-30 00:28] VITALS: RESP 18; O2SAT 93
--- NOTE | 2021-04-30 00:30 | ED.RN ---
[id number] pt was very upset that she had been here as long as she had been and was frustrated waiting for help when she rang her call perez. aplogized to the pt and explained that this nurse heard her call perez,but was in another pt's room drawing blood and was unable to stop care . empathy given and bargained with the pt to let the remainder of the antibiotic infused.pt stated she would.
== END 2021-04-30 00:32 | disposition home or self-care (01) ==
PROVIDERS: Emergency Medicine; Emergency Provider Emergency Medicine; PCP Family Medicine
DX: J18.9 Pneumonia, unspecified organism (principal); E11.9 Type 2 diabetes mellitus without complications; F32.9 Major depressive disorder, single episode, unspecified; J45.909 Unspecified asthma, uncomplicated; K21.9 Gastro-esophageal reflux disease without esophagitis; G47.33 Obstructive sleep apnea (adult) (pediatric); Z79.4 Long term (current) use of insulin; Z79.01 Long term (current) use of anticoagulants; Z79.899 Other long term (current) drug therapy
CPT/HCPCS: 71045; 80053; 83605; 85025; 87040; 87426; 93005; 94760; 96365; 96367; 99284; J7050; A4216; J0696

== ENCOUNTER 2021-05-24 20:29 | Emergency (ER) | payer MEDICAID, SELFPAY ==
[2021-05-24 20:30] VITALS: BP 111/72; PULSE 88; RESP 18; TEMP 36.6; O2SAT 92; BMI 32.7
--- NOTE | 2021-05-24 22:38 | RAD_ITS ---
STUDY: X-RAY CHEST REASON FOR EXAM: Female, 40 years old. Cough. TECHNIQUE: Single AP portable view of the chest. COMPARISON: 04/29/2021. FINDINGS: The lungs are well expanded. There is minimal interstitial prominence at the left lung base. Lungs are otherwise clear. There is no demonstrated pleural abnormality. Normal size heart. Normal mediastinum and khoi. Normal visualized pulmonary arteries. Normal visualized aortic arch and descending thoracic aorta. Normal visualized thoracic spine. Normal visualized ribs, clavicles, and shoulders. There is no demonstrated abnormality of the visualized soft tissue structures of the upper abdomen. RAD/Chest 1 View (Portable) IMPRESSION: Minimal left basilar pneumonia. Electronically Signed: Rey Luis DO at 23:07 EDT Tel [phone], Service support ,
--- NOTE | 2021-05-24 23:18 | ED.VIS.DYS ---
HPI History of Present Illness Chief Complaint: Shortness of Breath Informant: patient Onset/Context/Timing Onset: Yesterday Context: gradual Timing: Continuous Quality: Positive for Dyspnea on exertion Current Severity: Mild Maximum Severity: Moderate Worsened by: Exertion and Coughing Relieved by: Rest Associated Symptoms cough and green sputum Chest Pain: Positive for None Narrative Narrative: Patient presenting with fevers low-grade that started last night, followed by gradual onset of respiratory illness over the course of the day today, including productive cough without hemoptysis, myalgias/body aches, shortness of breath when she exerts herself. She denies any GI symptoms. No chest discomfort. No leg pain or swelling or recent travel/immobilization/surgery. She has a history of pneumonia in the past several times. She has not been vaccinated against Covid, presenting during the pandemic. She has a daughter who was in contact with somebody with Covid, her daughter is asymptomatic and she has been around her daughter only. [facility] Medical History Acute DVT (deep venous thrombosis) Anxiety Arthritis Asthma Atopic dermatitis Back pain Bone fracture Chronic back pain Chronic cough Chronic ethmoidal sinusitis Chronic mastoiditis Chronic pain CPAP (continuous positive airway pressure) dependence Depression Diabetes DM type 2 (diabetes mellitus, type 2) DVT (deep venous thrombosis) GERD (gastroesophageal reflux disease) GERD (gastroesophageal reflux disease) Hx of lichen planus Hyperlipidemia Hypothyroidism Loose, teeth Migraine headache Morbid obesity Myalgia and myositis SIERRA (obstructive sleep apnea) Peripheral edema Peripheral neuropathy Pulmonary embolism Recurrent UTI Restless legs syndrome Rosacea Sarcoidosis Seasonal allergies Smoker Wears hearing aid in both ears Home Medications oxycodone-acetaminophen 1 tab PO Q6H PRN PRN #12 tab 02/28/15 [Rx Last Taken 08/26/19] liraglutide 0.6 mg/0.1 mL (18 mg/3 mL) subcutaneous pen injector 1.8 mg SC DAILY ml 01/31/18 [History Last Taken 06/11/19] pantoprazole 40 mg tablet,delayed release 40 mg PO BID 01/31/18 [History Last Taken 01/14/21] pramipexole 1 mg tablet 1 mg PO BID tab 01/31/18 [History Last Taken 01/14/21] oxcarbazepine 300 mg PO BID 06/11/19 [History Last Taken 06/10/19] trazodone 50 - 200 mg PO QHS 06/11/19 [History Last Taken 01/14/21] citalopram 40 mg PO DAILY #0 tab 06/12/19 [Rx Last Taken 06/10/19] hydroxyzine pamoate 50 mg PO TID #0 06/12/19 [Rx Last Taken 06/10/19] tizanidine 4 mg PO TID #0 06/12/19 [Rx Last Taken 06/10/19] albuterol sulfate 90 mcg/actuation aerosol inhaler 1 inh INHALATION PRN PRN 12/23/20 [History Last Taken Unknown] apixaban 5 mg tablet 5 mg PO BID 12/23/20 [History Last Taken Unknown] insulin NPH-regular 70-30 U-100 insulin 100 unit/mL subcutaneous pen 40 unit SC BID ml 12/23/20 [History Last Taken Unknown] oxybutynin chloride 10 mg tablet,extended release 24 hr 10 mg PO DAILY 12/23/20 [History Last Taken Unknown] pregabalin 100 mg capsule 100 mg PO TID 12/23/20 [History Last Taken Unknown] triamcinolone acetonide 0.1 % topical cream 1 applic TOPICAL PRN PRN 12/23/20 [History Last Taken 01/14/21] butabarbital-belladonna 1 tab PO PRN PRN 01/12/21 [History Last Taken Unknown] azithromycin 250 mg PO DAILY #4 tablet 04/29/21 [Rx Last Taken Unknown] amoxicillin-pot clavulanate 875 mg PO Q12H #20 tablet 05/24/21 [Rx Last Taken Unknown] Allergy/AdvReac Type Severity Reaction Status Date / Time levothyroxine Allergy Mild PT UNSURE Verified 05/24/21 20:30 OF REACTION tramadol HCl [From Ultram] AdvReac Vomiting Verified 05/24/21 20:30 Family History Father Diabetes Asthma Brother Asthma Unknown Asthma Arthritis Diabetes Heart disease Hypertension Thyroid disorder Surgical History History of cholecystectomy history of sinusplasty History of total hysterectomy History of tubal ligation Hx of cystoscopy lymph node removal Social History Smoking Status: Current every day smoker tobacco type: cigarettes alcohol intake: never substance use type: does not use ROS ROS ED Constitutional Constitutional ED: Reports body ache(s), chills, fever(s) and malaise Eyes Eyes: Denies change in vision or diplopia ENT ENT ED: Reports nasal congestion and rhinorrhea; Denies sore throat Cardiovascular Cardiovascular: Denies chest pain or palpitations Respiratory/Chest Respiratory/Chest: Reports cough and dyspnea on exertion; Denies hemoptysis Gastrointestinal Gastrointestinal: Denies abdominal pain, diarrhea, nausea or vomiting Genitourinary Genitourinary ED: Denies dysuria or hematuria Musculoskeletal Musculoskeletal: Denies back pain or neck pain Integumentary Denies abscess or rash Neurologic Neurologic: Denies headache(s), paresthesias or weakness Psychiatric Psychiatric: Denies anxiety or suicidal thoughts EXAM Physical Exam Const Vital Signs: 05/24/21 20:30 Temperature 97.8 F Temperature Source Temporal Pulse Rate 88 Respiratory Rate 18 Blood Pressure 111/72 Blood Pressure Mean 85 Pulse Ox 92 Oxygen Delivery Method Room Air Positive well nourished and well developed General Appearance ED: well developed and NAD HEENT Reports moist mucous membranes normocephalic and atraumatic Eyes PERRL and EOMs intact bilaterally Neck full ROM, no lymphadenopathy, supple and no JVD Resp normal respiratory effort Auscultation: crackles left base and wheezes expiratory wheezes (Both bases mild) Cardio regular rate, regular rhythm and no murmurs Rate: Negative for tachycardic GI non-tender and non-distended Auscultation: normoactive bowel sounds Palpation: soft Back/Spine no CVA tenderness General Back: other FROM Extremity normal to inspection and no calf tenderness General Extremety ED: Negative for edema, pulses abnormal or tenderness General Extremity: Negative for edema or pulses abnormal Neuro oriented x3, CN's II-XII intact bilaterally and no sensory deficits noted Sensorium / Orientation: awake and alert Motor Exam: strength 5/5 throughout Skin no rashes or lesions noted and no wounds MDM MDM MDM Narrative Medical decision making narrative: Patient speaking full sentences, normal vital signs without hypoxemia, she is in no acute distress and well-appearing. Patient waited over 2 hours in triage before being seen, by the time I saw her chest x-ray was obtained and already resulted with left basilar pneumonia consistent with exam, and a negative rapid Covid test. Given her history and the fact that she has an exam that is more consistent with the infiltrate on the left base, I think this is a true negative Covid test and I do not think she needs a PCR right now. I had a serious discussion with the patient about getting the Covid vaccine which I highly recommend given her medical history since she is at high risk of getting very ill from it. She does not want to vaccine tonight but she will consider. I do not think she needs blood work or any other testing right now, she clearly is not septic and can be treated as an outpatient, we discussed reasons to return, we will start her on Augmentin tonight. She currently is on Bactrim for UTI, her UTI symptoms are resolved, she does not have urinary frequency or polydipsia to suggest very high blood sugars, advised to follow-up with her doctor return if worse. Also patient already has albuterol inhalers at home to use as needed for shortness of breath. She is able to walk around her house without any difficulty, her dyspnea with exertion is mild at this time. Radiography Diagnostic Testing: Radiology Impression Chest X-Ray 05/24/21 22:38 IMPRESSION: Minimal left basilar pneumonia. Electronically Signed: Rey LuisDO at 23:07 EDT Tel [phone], Service support , Discharge Plan Triage Chief Complaint: Shortness of Breath ED Provider: Jamil Shelton Dx/Rx/DC Orders Clinical Impression: Pneumonia Instructions: ED Pneumonia (Adult) Prescriptions: New amoxicillin-pot clavulanate [amoxicillin-pot clavulanate] 875 MG tablet 875 mg PO Q12H Qty: 20 RF: 0 No Action liraglutide [Victoza 2-Kobe] 0.6 mg/0.1 mL (18 mg/3 mL) pen injector 1.8 mg SC DAILY RF: 0 Eliquis 5 mg tablet 5 mg PO BID RF: 0 pregabalin [Lyrica] 100 mg capsule 100 mg PO TID RF: 0 oxybutynin chloride 10 mg tablet extended release 24hr 10 mg PO DAILY RF: 0 triamcinolone acetonide 0.1 % cream 1 applic TOPICAL PRN PRN (Reason: Skin Cleansing) RF: 0 albuterol sulfate [Ventolin HFA] 90 mcg/actuation HFA aerosol inhaler 1 inh INHALATION PRN PRN (Reason: short) RF: 0 Novolin 70-30 FlexPen U-100 100 unit/mL (70-30) insulin pen 40 unit SC BID RF: 0 pantoprazole 40 mg tablet,delayed release (DR/EC) 40 mg PO BID RF: 0 pramipexole 1 mg tablet 1 mg PO BID RF: 0 oxycodone-acetaminophen 1 TABLET tablet 1 tab PO Q6H PRN PRN (Reason: Moderate Pain) Qty: 12 RF: 0 oxcarbazepine 300 mg tablet 300 mg PO BID RF: 0 trazodone 100 MG tablet 50 - 200 mg PO QHS RF: 0 citalopram 40 mg tablet 40 mg PO DAILY Qty: 0 RF: 0 tizanidine 4 MG tablet 4 mg PO TID Qty: 0 RF: 0 hydroxyzine pamoate 50 mg capsule 50 mg PO TID Qty: 0 RF: 0 butabarbital-belladonna 15-15 mg Tablet 1 tab PO PRN PRN (Reason: Migraine Headache) RF: 0 azithromycin [azithromycin] 250 MG tablet 250 mg PO DAILY Qty: 4 RF: 0 Primary Care Provider: Albert Cheatham Referrals: Albert Cheatham DO [Primary Care Provider] - 3-5 Days if not improving Disposition Disposition: Home, Self Care
[2021-05-24] MEDS: Amox/Clavulanate 875 MG Tablet PO (23:57)
[2021-05-24 23:59] VITALS: PULSE 76; RESP 18; O2SAT 98
== END 2021-05-25 | disposition home or self-care (01) ==
LOC: ED 23:36
PROVIDERS: Emergency Provider Emergency Medicine; PCP Family Medicine
DX: J18.9 Pneumonia, unspecified organism (principal); F17.210 Nicotine dependence, cigarettes, uncomplicated
CPT/HCPCS: 71045; 87426; 94760; 99281; 99283

== ENCOUNTER → 2021-06-30 11:24 | Outpatient (CLI) | payer MEDICAID, SELFPAY ==
[2021-06-30 15:46] LABS: Absolute Lymphocyte Count 2.31 X10^3/uL (0.83-4.51); Basophil# 0.07 X10^3/uL; Eosinophil# 0.31 X10^3/uL; Eosinophils% 4.3 % (0-5); Hematocrit 37.9 % (37-47); Hemoglobin 11.9 g/dL (12.0-15.0); Lymphocyte # 2.31 X10^3/ul (0.83-4.51); Lymphocyte % 31.8 % (19-41); Mean Corp Hgb Conc 31.4 g/dL (32-36); Mean Corpuscular Hgb 25.4 pg (27.0-32.0); Mean Platelet Vol. 10.7 fl (6.2-12.0); Monocyte% 8.3 % (0-10); NRBC Flagged by Analyzer 0 % (0-5); Neutrophil # 3.95 X10^3/uL (2.7-7.7); Neutrophil % 54.2 % (47-70); Platelet Count 337 K/mm3 (150-450); RBC Distribution Width CV 14.3 % (11.6-14.6); RBC Distribution Width SD 41.9 fl (35.1-43.9); Red Blood Count 4.68 M/mm3 (4.2-5.4); White Blood Count 7.3 K/mm3 (4.4-11.0)
[2021-06-30 16:11] LABS: ALB/GLOB Ratio 0.6 RATIO (0.9-2.4); AST(SGOT) 9 U/L (15-37); Alanine Aminotransfer ALT/SGPT 14 U/L (13-56); Albumin, Serum 2.7 g/dL (3.2-5.0); Alkaline Phosphatase 109 U/L (45-117); Anion Gap 9 (5-15); BUN 8 mg/dL (7-18); BUN/Creat Ratio 14.7 RATIO (10-20); Calcium,Total 8.5 mg/dL (8.5-10.1); Chloride 103 mmol/L (98-107); Creatinine, Serum 0.55 mg/dL (0.55-1.02); EST Glomerular Filtration Rate 132 mL/min (>60); Est Glom Filt Rate - Afr Amer 159 mL/min (>60); Globulin 4.3 g/dL (2.2-4.2); Glucose 162 mg/dL (74-106); Sodium Level 137 mmol/L (136-145); T4 Free Direct 1.06 ng/dL (0.76-1.46); Thyroid Stim Hormone (TSH) 0.46 uIU/mL (0.358-3.74)
[2021-07-05 12:08] LABS: Immunoglobulin A 383 mg/dL (87-352); Immunoglobulin G 1027 mg/dL (586-1602); Immunoglobulin M 118 mg/dL (26-217)
[2021-07-05 14:58] LABS: Immunoglobulin E 19 IU/mL (6-495)
== END ==
PROVIDERS: PCP Family Medicine; Referring Provider Family Medicine; Visit Provider Family Medicine
DX: J67.9 Hypersensitivity pneumonitis due to unspecified organic dust (principal); D84.9 Immunodeficiency, unspecified; N39.0 Urinary tract infection, site not specified; Z51.81 Encounter for therapeutic drug level monitoring
CPT/HCPCS: 36415; 80053; 82784; 82785; 84439; 84443; 85025; 87077; 87086; 87088; 87186

== ENCOUNTER → 2021-07-18 14:13 | Outpatient (CLI) | payer MEDICAID, SELFPAY ==
--- NOTE | 2021-07-18 12:52 | US_ITS ---
STUDY: RENAL ULTRASOUND - COMPLETE REASON FOR EXAM: Female, 40 years old. UTI -- FLANK PAIN TECHNIQUE: Ultrasound evaluation of the kidneys was performed with real-time and static kraus-scale imaging. COMPARISON: None. FINDINGS: RIGHT KIDNEY: Normal location of the right kidney, which is normal in size. The right kidney measures 12.5 cm x 6.1 cm x 6.1 cm. There is a normal cortex of the right kidney. The renal cortex measures 2.1 cm. There is no right renal mass or cyst. There are no right renal calculi. There is no right hydronephrosis. DISTAL RIGHT URETER: There is non-visualization of the distal right ureter. There is no demonstrated right ureterovesical junction calculus. There is no demonstrated right ureteral jet. LEFT KIDNEY: Normal location of the left kidney, which is normal in size. The left kidney measures 13 cm x 5.5 cm x 6.5 cm. There is a normal cortex of the left kidney. The renal cortex measures 1.8 cm. There is no left renal mass or cyst. There are no left renal calculi. There is no left hydronephrosis. DISTAL LEFT URETER: There is non-visualization of the distal left ureter. There is no demonstrated left ureterovesical junction calculus. There is no demonstrated left ureteral jet. BLADDER: The bladder is not well distended for evaluation. US/Kidney and Bladder IMPRESSION: Normal ultrasound of the kidneys. Electronically Signed: Santhosh Wilkins MD at 15:30 EST , Service support ,
--- NOTE | 2021-07-18 13:20 | RAD_ITS ---
STUDY: X-RAY - PELVIS REASON FOR EXAM: Female, 40 years old. CHRONIC LBP TECHNIQUE: One view of the pelvis was obtained. COMPARISON: None. FINDINGS: There is a non-specific bowel gas pattern. Normal visualized soft tissue structures. Normal bilateral iliac wings, sacroiliac joints and visualized sacrum. Normal visualized bilateral superior and inferior pubic rami. Normal pubic symphysis. Normal ischial tuberosities. Normal visualized right femoral head. Normal right acetabulum. Normal right hip joint. Normal visualized left femoral head. Normal left acetabulum. Normal left hip joint. RAD/Pelvis 1 or 2 Views IMPRESSION: Normal x-ray examination of the pelvis. Electronically Signed: Santhosh Wilkins MD at 15:31 EST , Service support ,
--- NOTE | 2021-07-18 13:20 | RAD_ITS ---
STUDY: X-RAY - LUMBAR SPINE REASON FOR EXAM: Female, 40 years old. CHRONIC LBP TECHNIQUE: 4 view(s) of the lumbar spine were obtained. COMPARISON: Comparison is made with prior study dated 03/02/2020. FINDINGS: Normal lumbar lordosis. There is no substantial scoliosis. Grade 1 anterolisthesis of L5 on S1 with spondylolysis of the pars interarticularis of the L5 vertebrae. Normal vertebral bodies and endplates. Normal disc space heights. Facet joint osteoarthritis. The soft tissue structures are unremarkable. RAD/L/S Spine Min 4 Views IMPRESSION: Grade 1 anterolisthesis of L5 on S1 with evidence of spondylolysis of the pars interarticularis of the L5 vertebrae. Electronically Signed: Santhosh Wilkins MD at 15:32 EST , Service support ,
== END ==
PROVIDERS: PCP Family Medicine; Referring Provider Family Medicine; Visit Provider Family Medicine
DX: M54.50 Low back pain, unspecified (principal)
CPT/HCPCS: 72110; 72170; 76770

== ENCOUNTER → 2022-05-25 | Outpatient (CLI) | payer MEDICAID, SELFPAY ==
[2022-05-25 08:21] LABS: Absolute Lymphocyte Count 2.86 X10^3/uL (0.83-4.51); Basophil# 0.05 X10^3/uL; Basophil% 0.6 % (0-1); Eosinophils% 2.5 % (0-5); Hematocrit 39.1 % (37-47); Hemoglobin 12.2 g/dL (12.0-15.0); Lymphocyte # 2.86 X10^3/ul (0.83-4.51); Lymphocyte % 36.4 % (19-41); Mean Corp Hgb Conc 31.2 g/dL (32-36); Mean Corpuscular Hgb 25.6 pg (27.0-32.0); Mean Corpuscular Volume 82.1 fL (81-99); Mean Platelet Vol. 9.9 fl (6.2-12.0); Monocyte# 0.63 X10^3/uL; NRBC Flagged by Analyzer 0 % (0-5); Neutrophil # 4.04 X10^3/uL (2.7-7.7); Neutrophil % 51.5 % (47-70); Platelet Count 319 K/mm3 (150-450); RBC Distribution Width CV 13.4 % (11.6-14.6); RBC Distribution Width SD 39.7 fl (35.1-43.9); Red Blood Count 4.76 M/mm3 (4.2-5.4); White Blood Count 7.9 K/mm3 (4.4-11.0)
[2022-05-25 08:39] LABS: Microalbumin,Random Urine 36.6 mg/L (NO RANGE EST.); Microalbumin:Creatinine Ratio 27.5 mg/g CRE (<30 mg/g CRE)
[2022-05-25 08:47] LABS: Hemoglobin A1c 7.5 % (3.8-5.6)
[2022-05-25 08:55] LABS: ALB/GLOB Ratio 0.7 RATIO (0.9-2.4); AST(SGOT) 9 U/L (15-37); Alanine Aminotransfer ALT/SGPT 16 U/L (13-56); Albumin, Serum 2.9 g/dL (3.2-5.0); Alkaline Phosphatase 105 U/L (45-117); Anion Gap 9 (5-15); BUN 10 mg/dL (7-18); BUN/Creat Ratio 14.6 RATIO (10-20); Calcium,Total 8.2 mg/dL (8.5-10.1); Chloride 102 mmol/L (98-107); Cholesterol 246 mg/dL (200); Creatinine, Serum 0.69 mg/dL (0.55-1.02); EST Glomerular Filtration Rate 101 mL/min (>60); Est Glom Filt Rate - Afr Amer 122 mL/min (>60); Glucose 252 mg/dL (74-106); High Density Lipoprotein 44 mg/dL; Potassium 4.1 mmol/L (3.5-5.1); Protein, Total 6.9 g/dL (6.4-8.2); Sodium Level 137 mmol/L (136-145); Thyroid Stim Hormone (TSH) 0.77 uIU/mL (0.358-3.74); Triglycerides 324 mg/dL; Very Low Density Lipoprotein 65 mg/dL (5-40)
== END | disposition home or self-care (01) ==
LOC: LAB 07:36
PROVIDERS: PCP Family Medicine; Referring Provider Family Medicine; Visit Provider Family Medicine
DX: E11.49 Type 2 diabetes mellitus with other diabetic neurological complication (principal); D64.9 Anemia, unspecified; E78.5 Hyperlipidemia, unspecified; E03.9 Hypothyroidism, unspecified
CPT/HCPCS: 36415; 80053; 80061; 82043; 82570; 83036; 84443; 85025

== ENCOUNTER → 2022-06-23 | Outpatient (CLI) | payer MEDICAID, SELFPAY ==
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
== END | disposition home or self-care (01) ==
LOC: RAD 12:45
PROVIDERS: PCP Family Medicine; Referring Provider Family Medicine; Visit Provider Family Medicine
DX: R13.10 Dysphagia, unspecified (principal)
CPT/HCPCS: 74230; 92611

== ENCOUNTER → 2023-03-15 | Outpatient (CLI) | payer MEDICAID, SELFPAY ==
--- NOTE | 2023-03-15 10:44 | RAD_ITS ---
STUDY: X-RAY - PELVIS AND LEFT HIP REASON FOR EXAM: Female, 42 years old. HIP PAIN TECHNIQUE: 3 views of the pelvis and hip. COMPARISON: 07/18/2021 FINDINGS: There is a non-specific bowel gas pattern. Normal visualized soft tissue structures. Normal bilateral iliac wings, sacroiliac joints and visualized sacrum. Normal bilateral superior and inferior pubic rami. Normal pubic symphysis. Normal bilateral ischial tuberosities. Normal visualized femoral head. Normal acetabulum. Normal hip joint. RAD/HIP, UNI W/ Pelvis 2-3 Views IMPRESSION: Normal x-ray examination of the pelvis and hip. Electronically Signed: Kwame Sainz MD at 21:03 EDT ,
== END | disposition home or self-care (01) ==
LOC: MTLAB 10:34 → MTRAD 10:39
PROVIDERS: PCP Family Medicine; Referring Provider Family Medicine; Visit Provider Family Medicine
DX: M25.552 Pain in left hip (principal)
CPT/HCPCS: 73502

== ENCOUNTER 2023-06-16 01:14 | Observation (INO) | payer MEDICAID, SELFPAY ==
[2023-06-16] VITALS (15 sets, daily range): BP systolic 112–137; BP diastolic 64–84; PULSE 70–109; RESP 12–18; TEMP 36.2–36.8; O2SAT 91–99; BMI 40.8; BMI 38.4
--- NOTE | 2023-06-16 01:19 | EKG12_ITS ---
Test Reason : DYSRHYTHMIA Blood Pressure : / mmHG Vent. Rate : 079 BPM Atrial Rate : 079 BPM P-R Int : 158 ms QRS Dur : 086 ms QT Int : 400 ms P-R-T Axes : 035 019 037 degrees QTc Int : 458 ms Normal sinus rhythm Nonspecific T wave abnormality Abnormal ECG Confirmed by LEYDA LAW, PEMA ([id number]), editor map HECTOR BEGUM ([id number]) on 06/19/2023 12:17:18 PM Referred By: Confirmed By:PEMA CRABTREE MD
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
[2023-06-16 01:25] LABS: Absolute Lymphocyte Count 2.88 X10^3/uL (0.83-4.51); Absolute Neutrophil Count 5.5 X10^3/uL (2.0-7.7); Basophil# 0.06 X10^3/uL; Basophil% 0.6 % (0-1); Eosinophil# 0.17 X10^3/uL; Eosinophils% 1.8 % (0-5); Hematocrit 34.7 % (37-47); Hemoglobin 10.4 g/dL (12.0-15.0); Lymphocyte # 2.88 X10^3/ul (0.83-4.51); Lymphocyte % 30.4 % (19-41); Mean Corpuscular Hgb 22.7 pg (27.0-32.0); Mean Corpuscular Volume 75.8 fL (81-99); Mean Platelet Vol. 9.5 fl (6.2-12.0); Monocyte% 8.4 % (0-10); NRBC Flagged by Analyzer 0 % (0-5); Neutrophil # 5.52 X10^3/uL (2.7-7.7); Neutrophil % 58.4 % (47-70); Platelet Count 338 K/mm3 (150-450); RBC Distribution Width CV 15.1 % (11.6-14.6); RBC Distribution Width SD 40.7 fl (35.1-43.9); Red Blood Count 4.58 M/mm3 (4.2-5.4); White Blood Count 9.5 K/mm3 (4.4-11.0)
[2023-06-16 01:41] LABS: Anion Gap 6 (5-15); BUN 9 mg/dL (7-18); BUN/Creat Ratio 11.3 RATIO (10-20); Calcium,Total 8.5 mg/dL (8.5-10.1); Chloride 107 mmol/L (98-107); EST Glomerular Filtration Rate 84 mL/min (>60); Est Glom Filt Rate - Afr Amer 102 mL/min (>60); Estimated Creatinine Clearance 89.99 ml/min; Glucose 162 mg/dL (74-106); Potassium 3.8 mmol/L (3.5-5.1); Sodium Level 138 mmol/L (136-145); Troponin-I HS 4 pg/mL (3.0-54.0)
[2023-06-16 01:43] LABS: International Normalized Ratio 1.1; Prothrombin Time (Protime)PT. 13.8 SECONDS (11.7-14.9)
[2023-06-16 01:44] LABS: Partial Thromboplast Time 30.2 Seconds (24.1-36.2)
[2023-06-16] MEDS: 0.9% Normal Saline (500mL Bag) 500 ML 999 ML IV (01:51)
--- NOTE | 2023-06-16 01:52 | RAD_ITS ---
INDICATION: Neuro deficit, acute, stroke suspected EXAMINATION/TECHNIQUE: X-RAY - XR Chest 1 View COMPARISON: May 24, 2021. FINDINGS: LINES/DEVICES: None. LUNGS: No consolidation, edema or effusion. No pneumothorax. MEDIASTINUM AND CARDIOVASCULAR STRUCTURES: Cardiac silhouette not enlarged. BONES AND SOFT TISSUES: Unremarkable. RAD/Chest 1 View IMPRESSION: No radiographic evidence of acute cardiopulmonary disease. Electronically Signed: Ilya Garcia MD at 3:25 EDT ,
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
[2023-06-16 03:04] LABS: Bedside Glucose 113 mg/dL (74-106)
--- NOTE | 2023-06-16 03:04 | MRI_ITS ---
EXAM: MR HEAD WITHOUT AND WITH INTRAVENOUS CONTRAST CLINICAL INDICATION: CVA -- Has hearing implant. TECHNIQUE: Multiplanar and multisequence MR images of the brain were obtained without and with intravenous contrast. CONTRAST: 24CC IV CLARISCAN COMPARISON: MRI brain with and without contrast 05/04/2017. CT head without contrast and CTA head with contrast 06/16/2023. FINDINGS: BRAIN AND EXTRA-AXIAL SPACES: Following IV contrast administration, there are no abnormally enhancing lesions intra-axially and extra-axially. No intra- or extra-axial hemorrhage. No evidence of acute infarct. No intracranial mass or mass effect. There is preservation of the wolfe/white matter interface. Posterior fossa structures are unremarkable. Ventricles are appropriate for age. No hydrocephalus. Basal cisterns are patent. No focal signal abnormalities throughout the brain parenchyma. SELLA: Unremarkable. Normal sella turcica, pituitary gland, infundibular stalk, optic chiasm and hypothalamus. AUDITORY SYSTEM: Unremarkable. The internal auditory canals are patent. BONES/JOINTS: Pronounced mucosal thickening with sclerotic wall thickening and contraction of the sphenoid sinuses due to chronic sinusitis. SINUSES: Mucosal thickening of the ethmoid sinus. Minimal posterior thickening in the maxillary sinuses. Mild mucosal thickening of the right frontal sinus. Normal left frontal sinus. MASTOID AIR CELLS: Increasing and mucosal edema of the left temporal mastoid air cells. There is also fluid inside the left mastoid antrum, left aditus ad antrum and the left middle ear space. ORBITS: Unremarkable as visualized. Both globes, extraocular muscles, optic nerves and retrobulbar fat appear unremarkable. VASCULATURE: Unremarkable as visualized. Normal flow voids in the major intracranial circulation. MRI/Brain W/WO Contrast IMPRESSION: 1. Normal MRI of the brain with and without contrast. 2. Increased mucosal edema of the left temporal mastoid bones with fluid inside the left mastoid antrum, left aditus ad antrum and left middle ear space suggestive of left otomastoiditis. This is a new finding when compared to 05/04/2017. 3. Chronic sphenoid sinusitis, chronic ethmoid sinusitis, chronic right frontal sinusitis and mild chronic maxillary sinusitis.. Electronically Signed: Ariel Booth MD at 12:57 EDT ,
[2023-06-16 03:50] LABS: Magnesium 2.3 mg/dL (1.6-2.6)
--- NOTE | 2023-06-16 03:55 | MRI_ITS ---
STUDY: MRI CERVICAL SPINE WITH AND WITHOUT CONTRAST REASON FOR EXAM: Female, 42 years old. Paresthesias. TECHNIQUE: Standardized fat and water weighted pulse sequences were obtained in the sagittal and axial following administration of 24 mL of IV Clariscan.. COMPARISON: CTA head and neck with contrast 06/16/2023. FINDINGS: Normal foramen magnum and brainstem-cervical cord junction. Normal craniovertebral junction. Normal anterior atlantoaxial articulation. Normal odontoid process. Normal cervical lordosis. Normal vertebral bodies and posterior osseous elements. C2-3: Normal endplates. Normal disc height, signal and morphology. Normal central canal and intervertebral neural foramina. C3-4: Normal endplates. Normal disc height, signal and morphology. Normal central canal and intervertebral neural foramina. C4-5: Normal endplates. Normal disc height, signal and morphology. Normal central canal and intervertebral neural foramina. C5-6: Normal endplates. Normal disc height. Minimal ventral extradural defect due to posterior bulging annulus. Normal central canal and intervertebral neural foramina. C6-7: Normal endplates. Normal disc height, signal and morphology. Normal central canal and intervertebral neural foramina. C7-T1: Normal endplates. Normal disc height, signal and morphology. Normal central canal and intervertebral neural foramina. T1-T2, T2-T3 and T3-T4: (Sagittal only). Normal endplates. Normal disc height, signal and morphology. Normal central canal and intervertebral neural foramina. Normal cervical cord. Normal upper thoracic spinal cord. Normal included portions of the brainstem and cerebellum. Following IV contrast administration, there are no abnormally enhancing lesions intradurally and extradurally. Small nodules in both thyroid lobes. Normal visualized soft tissue structures. MRI/Spine Cervical W/WO Contrast IMPRESSION: 1. Limited study due to motion artifacts. 2. No MRI evidence of cervical extruded disc fragment, spinal stenosis or cervical nerve root displacement. 3. Small nodules in both thyroid lobes are better visualized on the recent CTA neck of 06/16/2023. Thyroid ultrasound will be helpful. 4. Normal cervical spinal cord. 5. No abnormal enhancing lesions intradurally and extradurally. Electronically Signed: Ariel Booth MD at 13:03 EDT ,
--- NOTE | 2023-06-16 03:55 | ECHOCS_ITS ---
Reason For Study: TIA/CVA Procedure This was a 2D Doppler, Color Flow transthoracic echocardiogram. The study was technically difficult. Contrast injection was performed. Exam performed portable in patient room. Left Ventricle Normal LV size. Left ventricular systolic function is normal. The estimated ejection fraction is 60 %. No regional wall motion abnormalities noted. Right Ventricle Normal RV size. Normal systolic function. Atria Normal left atrium. Normal right atrium. Bubble contrast study negative for right to left interatrial shunt. Mitral Valve Normal mitral valve. Tricuspid Valve Normal tricuspid valve. Aortic Valve Trisinus/trileaflet aortic valve. Pulmonic Valve Normal pulmonic valve. Great Vessels Normal aortic root. The pulmonary artery is normal size. Inferior vena cava collapse with respiration. Pericardium/Pleural No pericardial effusion. Medication Diluted definity 1ml given slow IV push to enhance endocardial definition. Performed a rapid injection of agitated mix of 9 cc saline and 1cc air to assess for atrial septal defect. MMode/2D Measurements & Calculations LVIDd: 4.8 cm IVSd: 1.1 cm LVOT diam: 4.1 cm LVIDs: 3.5 cm LVPWd: 1.2 cm FS: 25.9 % LVOT area: 13.1 cm2 Ao root diam: 3.1 cm LAV(MOD-bp): 40.8 ml LVAd ap4: 36.0 cm2 LAV(MOD-bp) Indexed: 18.5 ml/m2 LVLd ap4: 8.7 cm LAV(MOD-sp2): 41.3 ml EDV(MOD-sp4): 120.0 ml LAV(MOD-sp4): 36.9 ml EDV(sp4-el): 126.5 ml LVAs ap4: 19.3 cm2 LVLs ap4: 7.0 cm ESV(MOD-sp4): 44.6 ml ESV(sp4-el): 45.1 ml EF(MOD-sp4): 62.8 % EF(sp4-el): 64.4 % SV(MOD-sp4): 75.4 ml SV(sp4-el): 81.4 ml LA A4 area: 14.5 cm2 LA dimension(2D): 3.8 cm RA A4 area: 10.9 cm2 TAPSE: 2.5 cm Doppler Measurements & Calculations MV E max armando: 91.4 cm/sec Lat Peak E' Armando: 14.5 cm/sec Med Peak E' Armando: 8.7 cm/sec MV A max armando: 67.4 cm/sec E/E' lat: 6.3 E/E' med: 10.5 MV E/A: 1.4 MV V2 max: 102.0 cm/sec MV P1/2t max armando: 93.8 cm/sec Ao V2 max: 132.6 cm/sec MV max P.2 mmHg MV P1/2t: 49.8 msec Ao max P.0 mmHg MV V2 mean: 67.8 cm/sec MV mean P.0 mmHg MV dec slope: 552.5 cm/sec2 NUNO(V,D): 10.4 cm2 MV V2 VTI: 30.4 cm MVA(P1/2t): 4.4 cm2 LV V1 max: 105.7 cm/sec PA V2 max: 103.0 cm/sec LV V1 max P.5 mmHg ECHO/Echo Complete W/ Contrast Interpretation Summary Normal LV size. Left ventricular systolic function is normal. The estimated ejection fraction is 60 %. Bubble contrast study negative for right to left interatrial shunt. Contrast injection was performed. Ordering Physician: Nancy Parish Referring Physician: Albert Cheatham Performed By: Aide Francois RCS
[2023-06-16] MEDS: tiZANidine HCl 2 MG Tablet 4 MG PO (04:28)
[2023-06-16] MEDS: 0.9% Normal Saline (1000mL) 1,000 ML 100 ML IV (04:30)
[2023-06-16] MEDS: hydrOXYzine PAM 25 MG Capsule 50 MG PO ×3 (06:26→21:10)
[2023-06-16] MEDS: Pregabalin 50 MG Capsule 100 MG PO ×3 (06:26→21:04)
[2023-06-16] MEDS: Insulin Lispro 100 UNIT/ML INSULN.PEN SC ×3 (06:43→21:11)
[2023-06-16 06:52] LABS: Bedside Glucose 171 mg/dL (74-106)
[2023-06-16 07:16] LABS: Absolute Lymphocyte Count 2.32 X10^3/uL (0.83-4.51); Basophil# 0.05 X10^3/uL; Basophil% 0.7 % (0-1); Eosinophil# 0.13 X10^3/uL; Eosinophils% 1.8 % (0-5); Hematocrit 31.5 % (37-47); Hemoglobin 9.1 g/dL (12.0-15.0); Lymphocyte # 2.32 X10^3/ul (0.83-4.51); Lymphocyte % 32.3 % (19-41); Mean Corp Hgb Conc 28.9 g/dL (32-36); Mean Corpuscular Hgb 22.3 pg (27.0-32.0); Mean Corpuscular Volume 77.2 fL (81-99); Monocyte# 0.66 X10^3/uL; Monocyte% 9.2 % (0-10); NRBC Flagged by Analyzer 0 % (0-5); Neutrophil # 3.97 X10^3/uL (2.7-7.7); Neutrophil % 55.3 % (47-70); Platelet Count 313 K/mm3 (150-450); RBC Distribution Width CV 15.2 % (11.6-14.6); RBC Distribution Width SD 42.1 fl (35.1-43.9); Red Blood Count 4.08 M/mm3 (4.2-5.4); White Blood Count 7.2 K/mm3 (4.4-11.0)
--- NOTE | 2023-06-16 07:59 | CPS ---
Attempted to have pt do SMI and Pep at this time but pt was sleeping.
[2023-06-16 08:06] LABS: ALB/GLOB Ratio 0.7 RATIO (0.9-2.4); AST(SGOT) 8 U/L (15-37); Alanine Aminotransfer ALT/SGPT 18 U/L (13-56); Albumin, Serum 2.5 g/dL (3.2-5.0); Alkaline Phosphatase 111 U/L (45-117); Anion Gap 5 (5-15); BUN 9 mg/dL (7-18); BUN/Creat Ratio 13.4 RATIO (10-20); Calcium,Total 7.9 mg/dL (8.5-10.1); Chloride 107 mmol/L (98-107); Creatinine, Serum 0.67 mg/dL (0.55-1.02); EST Glomerular Filtration Rate 102 mL/min (>60); Est Glom Filt Rate - Afr Amer 124 mL/min (>60); Estimated Creatinine Clearance 107.46 ml/min; Ferritin 5 ng/mL (8-252); Globulin 3.8 g/dL (2.2-4.2); Glucose 163 mg/dL (74-106); Iron 22 ug/dL (50-170); Iron Binding Capacity,Total 301 ug/dL (250-450); PERCENT IRON SATURATION 7.3 % (15.0-55.0); Protein, Total 6.3 g/dL (6.4-8.2); Sodium Level 137 mmol/L (136-145); T4 Free Direct 0.85 ng/dL (0.76-1.46); Thyroid Stim Hormone (TSH) 0.79 uIU/mL (0.358-3.74)
[2023-06-16 08:16] LABS: Hemoglobin A1c 7.4 % (3.8-5.6)
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
[2023-06-16] MEDS: Pantoprazole Sodium 40 MG Tablet PO ×2 (09:18→21:05)
[2023-06-16] MEDS: OXcarbazepine 300 MG Tablet PO ×2 (09:18→21:05)
[2023-06-16] MEDS: oxyCODONE 5 MG Tablet PO ×3 (09:18→21:10)
[2023-06-16] MEDS: Aspirin 81 MG TAB.CHEW PO (09:18)
[2023-06-16] MEDS: Pramipexole Di-HCl 1 MG Tablet PO ×2 (09:19→21:05)
[2023-06-16] MEDS: Tolterodine Tartrate 2 MG CAP.SA PO (09:19)
[2023-06-16] MEDS: Iron Polysaccharide Complex 150 MG CAPSULE PO (09:29)
[2023-06-16] MEDS: APIXABAN 5 MG TABLET PO ×2 (09:29→21:05)
[2023-06-16 12:42] LABS: Bedside Glucose 117 mg/dL (74-106)
--- NOTE | 2023-06-16 14:35 | CASEMGMT ---
Social Work PHQ-9 not completed as pt did not have a stroke. MIKALA Sparks
[2023-06-16] MEDS: Sodium Ferric Gluconat 250 MG in 0.9% Normal Saline 250 ML 135 MG IV (15:00)
[2023-06-16 17:50] LABS: Bedside Glucose 189 mg/dL (74-106)
[2023-06-16] MEDS: Atorvastatin Calcium 40 MG Tablet PO (21:10)
[2023-06-16 22:35] LABS: Bedside Glucose 189 mg/dL (74-106)
--- NOTE | 2023-06-17 02:07 | PCM.HOSP.N ---
Hospitalist Note Patient with + guiac, will temporarily hold asa, eliquis, Hgb has decreased since initial presentation, repeat CBC in AM pending.
[2023-06-17 04:16] VITALS: BMI 38.9
[2023-06-17] MEDS: oxyCODONE 5 MG Tablet PO ×2 (04:20→10:30)
[2023-06-17 04:30] VITALS: BP 126/70; PULSE 76; RESP 18; TEMP 36.2; O2SAT 99
[2023-06-17] MEDS: Pregabalin 50 MG Capsule 100 MG PO ×3 (05:09→22:59)
[2023-06-17] MEDS: hydrOXYzine PAM 25 MG Capsule 50 MG PO ×3 (05:09→22:54)
[2023-06-17 06:29] LABS: Absolute Lymphocyte Count 2.29 X10^3/uL (0.83-4.51); Absolute Neutrophil Count 4.2 X10^3/uL (2.0-7.7); Basophil# 0.06 X10^3/uL; Basophil% 0.8 % (0-1); Eosinophil# 0.14 X10^3/uL; Eosinophils% 1.9 % (0-5); Hematocrit 33.2 % (37-47); Hemoglobin 9.9 g/dL (12.0-15.0); Lymphocyte # 2.29 X10^3/ul (0.83-4.51); Mean Corp Hgb Conc 29.8 g/dL (32-36); Mean Corpuscular Hgb 22.9 pg (27.0-32.0); Mean Corpuscular Volume 76.9 fL (81-99); Mean Platelet Vol. 9.7 fl (6.2-12.0); Monocyte# 0.62 X10^3/uL; Monocyte% 8.4 % (0-10); NRBC Flagged by Analyzer 0 % (0-5); Neutrophil # 4.23 X10^3/uL (2.7-7.7); Neutrophil % 57.2 % (47-70); Platelet Count 322 K/mm3 (150-450); RBC Distribution Width CV 15.3 % (11.6-14.6); RBC Distribution Width SD 42.3 fl (35.1-43.9); Red Blood Count 4.32 M/mm3 (4.2-5.4); White Blood Count 7.4 K/mm3 (4.4-11.0)
[2023-06-17 07:33] VITALS: O2SAT 95; BMI 38.9
[2023-06-17 07:41] LABS: Anion Gap 6 (5-15); BUN 6 mg/dL (7-18); BUN/Creat Ratio 9.5 RATIO (10-20); Chloride 106 mmol/L (98-107); Cholesterol 159 mg/dL (200); Creatinine, Serum 0.63 mg/dL (0.55-1.02); EST Glomerular Filtration Rate 110 mL/min (>60); Est Glom Filt Rate - Afr Amer 133 mL/min (>60); Estimated Creatinine Clearance 114.28 ml/min; Glucose 200 mg/dL (74-106); High Density Lipoprotein 43 mg/dL; Sodium Level 137 mmol/L (136-145); Triglycerides 220 mg/dL; Very Low Density Lipoprotein 44 mg/dL (5-40)
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
[2023-06-17 09:13] VITALS: BP 131/68; PULSE 81; RESP 16; TEMP 36.2; O2SAT 99
[2023-06-17] MEDS: Insulin Human 75/25 Kwickpen 40 UNIT SC ×2 (09:16→23:01)
[2023-06-17] MEDS: Insulin Lispro 100 UNIT/ML INSULN.PEN SC ×2 (09:18→12:01)
[2023-06-17] MEDS: Tolterodine Tartrate 2 MG CAP.SA PO (09:19)
[2023-06-17] MEDS: Pramipexole Di-HCl 1 MG Tablet PO ×2 (09:19→22:54)
[2023-06-17] MEDS: OXcarbazepine 300 MG Tablet PO ×2 (09:19→22:54)
[2023-06-17] MEDS: Pantoprazole Sodium 40 MG Tablet PO ×2 (09:19→22:55)
[2023-06-17] MEDS: Iron Polysaccharide Complex 150 MG CAPSULE PO (09:21)
[2023-06-17 09:44] LABS: Bedside Glucose 307 mg/dL (74-106)
[2023-06-17] MEDS: APIXABAN 5 MG TABLET PO ×2 (10:30→22:54)
[2023-06-17] MEDS: Aspirin 81 MG TAB.CHEW PO (10:30)
[2023-06-17] MEDS: Folic Acid 1 MG Tablet 2 MG PO (10:30)
[2023-06-17 12:22] LABS: Bedside Glucose 160 mg/dL (74-106)
[2023-06-17 13:38] VITALS: BP 129/72; PULSE 77; RESP 16; TEMP 36.2; O2SAT 98
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
[2023-06-17 15:54] LABS: CRP 9.96 mg/L (0.0-3.0)
[2023-06-17] MEDS: Bisacodyl 5 MG Tablet 40 MG PO (16:26)
[2023-06-17 16:34] LABS: Erythrocyte Sedimentation Rate 26 mm/hr (0-30)
[2023-06-17] MEDS: Acetaminophen 325 MG Tablet 650 MG PO ×2 (16:37→22:59)
[2023-06-17] MEDS: oxyCODONE 5 MG Tablet 10 MG PO ×2 (16:37→22:58)
[2023-06-17 16:49] LABS: Bedside Glucose 133 mg/dL (74-106)
[2023-06-17] MEDS: Electrolyte Solution/Peg's 4000 ML PO (17:50)
[2023-06-17 21:32] VITALS: O2SAT 99
[2023-06-17 22:00] VITALS: BP 123/73; PULSE 85; RESP 16; TEMP 36.2; O2SAT 98
[2023-06-17] MEDS: Atorvastatin Calcium 40 MG Tablet PO (22:54)
[2023-06-17] MEDS: QUEtiapine 100 MG Tablet 300 MG PO (22:54)
[2023-06-17] MEDS: traZODone 100 MG Tablet PO (22:55)
[2023-06-17 23:27] LABS: Bedside Glucose 118 mg/dL (74-106)
[2023-06-18] VITALS (10 sets, daily range): BP systolic 93–121; BP diastolic 63–73; PULSE 77–88; RESP 14–16; TEMP 36.1–36.6; O2SAT 92–98; BMI 38.9; BMI 38.5
[2023-06-18 05:33] LABS: Absolute Lymphocyte Count 3.38 X10^3/uL (0.83-4.51); Absolute Neutrophil Count 4.5 X10^3/uL (2.0-7.7); Basophil# 0.08 X10^3/uL; Basophil% 0.9 % (0-1); Eosinophil# 0.14 X10^3/uL; Eosinophils% 1.6 % (0-5); Hematocrit 37.5 % (37-47); Lymphocyte # 3.38 X10^3/ul (0.83-4.51); Lymphocyte % 37.8 % (19-41); Mean Corp Hgb Conc 29.3 g/dL (32-36); Mean Corpuscular Hgb 22.5 pg (27.0-32.0); Mean Corpuscular Volume 76.8 fL (81-99); Mean Platelet Vol. 9.7 fl (6.2-12.0); Monocyte# 0.78 X10^3/uL; Monocyte% 8.7 % (0-10); NRBC Flagged by Analyzer 0.3 % (0-5); Neutrophil # 4.49 X10^3/uL (2.7-7.7); Neutrophil % 50.2 % (47-70); Platelet Count 369 K/mm3 (150-450); RBC Distribution Width CV 15.4 % (11.6-14.6); RBC Distribution Width SD 42.4 fl (35.1-43.9); Red Blood Count 4.88 M/mm3 (4.2-5.4); White Blood Count 8.9 K/mm3 (4.4-11.0)
[2023-06-18 05:59] LABS: Anion Gap 6 (5-15); BUN 8 mg/dL (7-18); BUN/Creat Ratio 10.5 RATIO (10-20); Calcium,Total 8.6 mg/dL (8.5-10.1); Chloride 105 mmol/L (98-107); Creatinine, Serum 0.76 mg/dL (0.55-1.02); EST Glomerular Filtration Rate 89 mL/min (>60); Est Glom Filt Rate - Afr Amer 108 mL/min (>60); Estimated Creatinine Clearance 94.73 ml/min; Glucose 91 mg/dL (74-106); Potassium 3.3 mmol/L (3.5-5.1); Sodium Level 139 mmol/L (136-145)
[2023-06-18] MEDS: hydrOXYzine PAM 25 MG Capsule 50 MG PO ×2 (06:27→14:43)
[2023-06-18] MEDS: Pregabalin 50 MG Capsule 100 MG PO ×2 (06:27→14:41)
[2023-06-18 09:13] LABS: Vitamin B12 357 pg/mL (211-911)
[2023-06-18] MEDS: Acetaminophen 325 MG Tablet 650 MG PO (09:25)
[2023-06-18 11:13] LABS: Bedside Glucose 104 mg/dL (74-106)
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
[2023-06-18] MEDS: Lactated Ringers 1,000 ML 15 ML IV (11:50)
--- NOTE | 2023-06-18 12:45 | COLBX_PTH ---
PATIENT: NEIDA MANNING LOC: [facility] U#:[id number] AGE/SX: 42/F ROOM: [facility] RE06/16/[address]: Dr. Janie Colunga MD : 1980 BED: 1 DIS: 06/18/2023 SPEC #: [id number] RECD: 06/18/23 14:28 STATUS: MEDHAT RECheko #: [id number] [place]: 06/18/23 12:[address]: Amos Hodge DEPT: SURGICAL PATHOLOGY RECD BY: Lis Adamson ENTERED: 06/19/23 09:17 SP TYPE: COLON BX OTHR DR: MD Dr. Albert Rabago, DO Dr. Janie Colunga MD Tissues: A - Esophagus, NOS B - Sigmoid colon biopsy Procedures: Special Stain Group I Surgery Specimen Level IV GMS Stain (control) Comments: @ Ordering doctor for SUIV edited from to @ by SIM at 06/19/23 142 @ Submitting doctor edited from to @ by RGOOD at 06/19/23 1427 HEADER OPERATION: Colonoscopy with polypectomy, EGD with biopsy and dilation PRE-OP DIAGNOSIS: Anemia TISSUE SUBMITTED: A - Proximal esophageal stricture, B - Sigmoid polyp MICROSCOPIC DIAGNOSIS A. Proximal esophageal stricture, biopsy: Focal acute inflammation. No evidence of fungal organisms. See comment. B. Sigmoid colon polyp, biopsy: Fragments of tubular adenoma. AM:samir 06/20/2023 COMMENT A. GMS stain with matched control was used in the evaluation of this case. MICROSCOPIC DESCRIPTION Slides are reviewed. GROSS DESCRIPTION A - Received in fixative is one container labeled with the patient's name and designated proximal esophagus biopsy. The specimen consists of multiple irregular fragments of light leslie soft tissue that in aggregate measure 1.0 x 0.3 x 0.1 cm. The specimen is totally submitted in one cassette. B - Received in fixative is one container labeled with the patient's name and designated sigmoid polyp. The specimen consists of two irregular fragments of light leslie soft tissue that in aggregate measure 0.6 x 0.5 x 0.1 cm. The specimen is totally submitted in one cassette. / AM:samir 06/19/2023 TC:2 CPT: 40541 x2, 06193
--- NOTE | 2023-06-18 13:43 | OP.EGD_ITS ---
Patient Name: Anne Marie Lepe Procedure Date: 06/18/2023 12:53 PM Date of : 1980 Age: 42 Procedure: Upper GI endoscopy Indications: Dysphagia Providers: Amos Hodge DO Medicines: Monitored Anesthesia Care Patient Profile: This is a 42 year old female. Refer to note in patient chart for documentation of history and physical. Patient has symptoms. Patient has symptoms of dysphagia with both liquids and solids. Complications: No immediate complications. Procedure: Pre-Anesthesia Assessment: - Prior to the procedure, a History and Physical was performed, and patient medications and allergies were reviewed. The patient is competent. The risks and benefits of the procedure and the sedation options and risks were discussed with the patient. All questions were answered and informed consent was obtained. Patient identification and proposed procedure were verified by the physician in the pre-procedure area. Mental Status Examination: alert and oriented. Respiratory Examination: clear to auscultation. Prophylactic Antibiotics: The patient does not require prophylactic antibiotics. Prior Anticoagulants: The patient has taken no anticoagulant or antiplatelet agents. ASA Grade Assessment: III - A patient with severe systemic disease. After reviewing the risks and benefits, the patient was deemed in satisfactory condition to undergo the procedure. The anesthesia plan was to use monitored anesthesia care (MAC). Immediately prior to administration of medications, the patient was re-assessed for adequacy to receive sedatives. The heart rate, respiratory rate, oxygen saturations, blood pressure, adequacy of pulmonary ventilation, and response to care were monitored throughout the procedure. The physical status of the patient was re-assessed after the procedure. After obtaining informed consent, the endoscope was passed under direct vision. Throughout the procedure, the patient's blood pressure, pulse, and oxygen saturations were monitored continuously. The Colonoscope was introduced through the mouth, and advanced to the second part of duodenum. The upper GI endoscopy was accomplished without difficulty. The patient tolerated the procedure well. Scope In: 1:11:56 PM Scope Out: 1:24:36 PM Total Procedure Duration Time 0 hours 12 minutes 40 seconds Findings: Mucosal changes including ringed esophagus, feline appearance, longitudinal furrows, circumferential folds, congestion (edema), crepe paper esophagus, esophageal erosions and stenosis were found in the entire esophagus. Esophageal findings were graded using the Eosinophilic Esophagitis Endoscopic Reference Score (EoE-EREFS) as: Edema Grade 1 Present (decreased clarity or absence of vascular markings), Rings Grade 3 Severe (distinct rings that do not permit passage of diagnostic 8-10 mm endoscope), Exudates Grade 2 Severe (scattered white lesions involving 10 percent or greater of the esophageal surface area), Furrows Grade 2 Severe (vertical lines with clear depth) and Stricture present. Biopsies were obtained from the proximal and distal esophagus with cold forceps for histology of suspected eosinophilic esophagitis. A TTS dilator was passed through the scope. Dilation with a 12-13.5-15 mm balloon dilator was performed to 15 mm. The dilation site was examined and showed moderate improvement in luminal narrowing. Estimated blood loss was minimal. The entire examined stomach was normal. No gross lesions were noted in the first portion of the duodenum. Impression: - Esophageal mucosal changes consistent with eosinophilic esophagitis. Dilated. - Normal stomach. - No gross lesions in the first portion of the duodenum. - Biopsies were taken with a cold forceps for evaluation of eosinophilic esophagitis. Recommendation: - Return patient to [facility] for ongoing care. - Full liquid diet. - Continue present medications. - Await pathology results. - Repeat upper endoscopy in 1 month for surveillance. - Protonix 40mg twice daily - Carafate 1gm three times per day (Crush and put into 10 ounces of liquid) Procedure Code(s): --- Professional --- 77753, Esophagogastroduodenoscopy, flexible, transoral; with transendoscopic balloon dilation of esophagus (less than 30 mm diameter) 69258, 59,51, Esophagogastroduodenoscopy, flexible, transoral; with biopsy, single or multiple CPT copyright 2021 [employer]. All rights reserved. The codes documented in this report are preliminary and upon riverboat master review may be revised to meet current compliance requirements. Amos Hodge DO 06/18/2023 1:42:57 PM This report has been signed electronically. Number of Addenda: 0 Note Initiated On: 06/18/2023 12:53 PM
--- NOTE | 2023-06-18 13:43 | OP.CCLET_ITS ---
06/18/2023 Albert Cheatham [address] [facility] [place] [address] Re : Upper GI endoscopy procedure for Anne Marie Trianaim Dear Dr. Cheatham This procedure was performed on Sunday, June 18, 2023. My impressions and recommendations are as follows: Impressions : - Esophageal mucosal changes consistent with eosinophilic esophagitis. Dilated. - Normal stomach. - No gross lesions in the first portion of the duodenum. - Biopsies were taken with a cold forceps for evaluation of eosinophilic esophagitis. Recommendations : - Return patient to [facility] for ongoing care. - Full liquid diet. - Continue present medications. - Await pathology results. - Repeat upper endoscopy in 1 month for surveillance. - Protonix 40mg twice daily - Carafate 1gm three times per day (Crush and put into 10 ounces of liquid) My findings are described in the full procedure note, which is enclosed. If I can be of further assistance, please feel free to contact me at . Sincerely, Amos Hodge, 06/18/2023 1:42:57 PM This report has been signed electronically.
--- NOTE | 2023-06-18 13:47 | OP.CCLET_ITS ---
06/18/2023 Albert Cheatham [address] [place] [address] Re : Colonoscopy procedure for Anne Marie Lepe Dear Dr. Cheatham This procedure was performed on Sunday, June 18, 2023. My impressions and recommendations are as follows: Impressions : - Preparation of the colon was fair. - Diverticulosis in the recto-sigmoid colon and in the sigmoid colon. - Stool in the recto-sigmoid colon, in the sigmoid colon, in the descending colon and at the splenic flexure. - One 14 mm polyp in the sigmoid colon, removed with a hot snare. Resected and retrieved. Recommendations : - Repeat colonoscopy in 6 months because the bowel preparation was suboptimal. - No aspirin, ibuprofen, naproxen, or other non-steroidal anti-inflammatory drugs for 1 week. My findings are described in the full procedure note, which is enclosed. If I can be of further assistance, please feel free to contact me at . Sincerely, Amos Hodge, 06/18/2023 1:46:44 PM This report has been signed electronically.
--- NOTE | 2023-06-18 13:47 | OP.COLON_ITS ---
Patient Name: Anne Marie Lepe Procedure Date: 06/18/2023 1:24 PM Date of : 1980 Age: 42 Procedure: Colonoscopy Indications: Iron deficiency anemia Providers: Amos Hodge DO Medicines: Monitored Anesthesia Care Patient Profile: This is a 42 year old female. Refer to note in patient chart for documentation of history and physical. Patient has symptoms. Patient has symptoms of dysphagia with both liquids and solids. Last Colonoscopy: date unknown. Unable to locate last colonoscopy report. Complications: No immediate complications. Procedure: Pre-Anesthesia Assessment: - Prior to the procedure, a History and Physical was performed, and patient medications and allergies were reviewed. The patient is competent. The risks and benefits of the procedure and the sedation options and risks were discussed with the patient. All questions were answered and informed consent was obtained. Patient identification and proposed procedure were verified by the physician in the pre-procedure area. Mental Status Examination: alert and oriented. Respiratory Examination: clear to auscultation. Prophylactic Antibiotics: The patient does not require prophylactic antibiotics. Prior Anticoagulants: The patient has taken no anticoagulant or antiplatelet agents. ASA Grade Assessment: III - A patient with severe systemic disease. After reviewing the risks and benefits, the patient was deemed in satisfactory condition to undergo the procedure. The anesthesia plan was to use monitored anesthesia care (MAC). Immediately prior to administration of medications, the patient was re-assessed for adequacy to receive sedatives. The heart rate, respiratory rate, oxygen saturations, blood pressure, adequacy of pulmonary ventilation, and response to care were monitored throughout the procedure. The physical status of the patient was re-assessed after the procedure. After I obtained informed consent, the scope was passed under direct vision. Throughout the procedure, the patient's blood pressure, pulse, and oxygen saturations were monitored continuously. The Colonoscope was introduced through the anus and advanced to the cecum, identified by appendiceal orifice and ileocecal valve. The colonoscopy was performed without difficulty. The patient tolerated the procedure well. The quality of the bowel preparation was fair. The ileocecal valve, appendiceal orifice, and rectum were photographed. Scope In: 1:27:14 PM Scope Withdrawal Time 0 hours 6 minutes 47 seconds Scope Out: 1:36:58 PM Total Procedure Duration Time 0 hours 9 minutes 44 seconds Findings: The perianal and digital rectal examinations were normal. A few small-mouthed diverticula were found in the recto-sigmoid colon and sigmoid colon. Stool was found in the recto-sigmoid colon, in the sigmoid colon, in the descending colon and at the splenic flexure. A 14 mm polyp was found in the sigmoid colon. The polyp was sessile. The polyp was removed with a hot snare. Resection and retrieval were complete. Verification of patient identification for the specimen was done. Estimated blood loss was minimal. Impression: - Preparation of the colon was fair. - Diverticulosis in the recto-sigmoid colon and in the sigmoid colon. - Stool in the recto-sigmoid colon, in the sigmoid colon, in the descending colon and at the splenic flexure. - One 14 mm polyp in the sigmoid colon, removed with a hot snare. Resected and retrieved. Recommendation: - Repeat colonoscopy in 6 months because the bowel preparation was suboptimal. - No aspirin, ibuprofen, naproxen, or other non-steroidal anti-inflammatory drugs for 1 week. Procedure Code(s): --- Professional --- 95403, Colonoscopy, flexible; with removal of tumor(s), polyp(s), or other lesion(s) by snare technique CPT copyright 2021 [employer]. All rights reserved. The codes documented in this report are preliminary and upon evs manager review may be revised to meet current compliance requirements. Amos Hodge DO 06/18/2023 1:46:44 PM This report has been signed electronically. Number of Addenda: 0 Note Initiated On: 06/18/2023 1:24 PM
[2023-06-18] MEDS: Aspirin 81 MG TAB.CHEW PO (14:41)
[2023-06-18] MEDS: Folic Acid 1 MG Tablet 2 MG PO (14:41)
[2023-06-18] MEDS: Potassium Chloride Oral Tablet 20 MEQ 40 MEQ PO (14:41)
[2023-06-18] MEDS: Citalopram 40 MG TABLET PO (14:41)
[2023-06-18] MEDS: Pramipexole Di-HCl 1 MG Tablet PO (14:42)
[2023-06-18] MEDS: Iron Polysaccharide Complex 150 MG CAPSULE PO (14:42)
[2023-06-18] MEDS: APIXABAN 5 MG TABLET PO (14:42)
[2023-06-18] MEDS: Pantoprazole Sodium 40 MG Tablet PO (14:42)
[2023-06-18] MEDS: Tolterodine Tartrate 2 MG CAP.SA PO (14:42)
[2023-06-18] MEDS: OXcarbazepine 300 MG Tablet PO (14:43)
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
--- NOTE | 2023-06-18 15:44 | PCM.DC ---
Discharge Instructions Diet Discharge Diet: Light diet - advance as tolerated Follow Up Care Test Results: Test results from this visit will be discussed in further detail at your follow-up appointment, if applicable. Discharge Plan Admission Admit Date/Time: 06/16/23 02:49 Primary Reason for Your Visit: Right sided weakness Attending Provider: Janie Colunga Primary Care Provider: Albert Cheatham Consulting Providers: Nancy Parish Instructions Patient Instructions: Upper GI Endoscopy with Biopsy, Lower GI Endoscopy, TIA Dc Additional Instructions / Restrictions: DISCHARGE INSTRUCTIONS PLEASE READ *Please take this with you to your next doctors appointment* -Neurology evaluated and felt your symptoms may have been indicative of a mini stroke, you will need to take Eliquis, aspirin, and your rosuvastatin has been increased to 20 mg -You will need to take Protonix twice daily and you will also be discharged with a prescription for Carafate/sucralfate -You are found to have low iron stores and have been started on an iron supplement, will be important that you follow-up with your primary care physician and photographer motion picture below to follow-up on any pending test results and to further identify cause of your low iron. You will also be discharged with a folic acid supplement -You will need to follow-up with Dr. Hodge with GI in his office upon discharge. Please call his office to schedule your hospital follow-up appointment (ph. [phone]), you have biopsies and several lab studies pending that will need to be followed with an outpatient provider -Please follow-up with neurology upon discharge, please call Dr. Bernard's office upon discharge to schedule an establish care appointment for your mini stroke (ph [phone]) -You were found to have a small thyroid nodule, it is recommended you have an ultrasound follow up of this, this can be coordinated through your primary care physician's office -You had a colonoscopy and upper endoscopy, please eat a light diet for 24-48 hours and advance as tolerated -Please call your primary care provider's office upon discharge to schedule a hospital follow up within 1 week -For any concerning signs or symptoms please call 911 or proceed to the nearest emergency department Discharge Orders/Prescriptions Prescriptions: New rosuvastatin [Crestor] 20 mg tablet 20 mg PO DAILY Qty: 30 0RF Rx Instructions: TO REPLACE 10mg sucralfate 1 gram Tablet 1 g PO TIDAC 30 Days Qty: 90 0RF polysaccharide iron complex [Ferrex 150] 150 mg iron Capsule 150 mg PO DAILY 30 Days Qty: 30 0RF folic acid 1 mg Tablet 2 mg PO BREAKFAST 30 Days Qty: 60 0RF Continued liraglutide [Victoza 2-Kobe] 0.6 mg/0.1 mL (18 mg/3 mL) pen injector 1.8 mg SC DAILY Eliquis 5 mg tablet 5 mg PO BID Patient Comments: WILL STOP 2 DAYS PRIOR pregabalin [Lyrica] 100 mg capsule 100 mg PO TID oxybutynin chloride 10 mg tablet extended release 24hr 10 mg PO DAILY triamcinolone acetonide 0.1 % cream 1 applic TOPICAL PRN PRN (Reason: Skin Cleansing) albuterol sulfate [Ventolin HFA] 90 mcg/actuation HFA aerosol inhaler 1 inh INHALATION PRN PRN (Reason: short) pantoprazole 40 mg tablet,delayed release (DR/EC) 40 mg PO BID Patient Comments: acid reflex pramipexole 1 mg tablet 1 mg PO BID Patient Comments: muscle spasms oxcarbazepine 300 mg tablet 300 mg PO BID Patient Comments: 1 tablet twice a day trazodone 100 MG tablet 50 - 200 mg PO QHS citalopram 40 mg tablet 40 mg PO DAILY Qty: 0 0RF Rx Instructions: hold while taking ciprofloxacin hydroxyzine pamoate 50 mg capsule 50 mg PO TID Qty: 0 0RF Patient Comments: 1 capsule three times a day as needed Rx Instructions: hold while taking ciprofloxacin aspirin 81 mg tablet,delayed release (DR/EC) 81 mg PO DAILY Patient Comments: TAKE 1 TABLET BY MOUTH ONCE DAILY cyclobenzaprine 10 mg tablet 10 mg PO TID Patient Comments: TAKE 1/2 TO 1 (ONE-HALF TO ONE) TABLET BY MOUTH THREE TIMES DAILY NEEDED clotrimazole-betamethasone 1-0.05 % lotion TOPICAL Patient Comments: APPLY LOTION TOPICALLY TO AFFECTED AREA TWICE DAILY NEEDED insulin lispro protamin-lispro [Humalog Mix 75-25 KwikPen] 100 unit/mL (75-25) insulin pen 25 unit SUBCUT BID Patient Comments: INJECT 25 UNITS SUBCUTANEOUSLY TWICE DAILY IN THE MORNING AND IN THE EVENING metronidazole 0.75 % (37.5mg/5 gram) gel VAGINAL Patient Comments: INSERT 1 APPLICATORFUL VAGINALLY ONCE DAILY NEEDED FOR 5 DAYS oxycodone-acetaminophen 10-325 mg tablet 1 tab PO Q8H Patient Comments: TAKE 1 TABLET BY MOUTH THREE TIMES DAILY NEEDED CHRONIC INTRACTABLE PAIN quetiapine 300 mg tablet 300 mg PO DAILY Patient Comments: TAKE 1 TABLET BY MOUTH ONCE DAILY AT BEDTIME Discontinued rosuvastatin 10 mg tablet 10 mg PO DAILY Patient Comments: TAKE 1 TABLET BY MOUTH ONCE DAILY Referrals / Follow Up: Albert Cheatham DO [Primary Care Provider] - Within 1 Week Randy Bernard MD [Non-Staff -Ordering Privileges] - Amos Hodge DO [Med Staff - Active Staff] - Disposition Disposition (needs filled in before D/C Order can be placed): Home, Self Care
[2023-06-18] MEDS: oxyCODONE 5 MG Tablet 10 MG PO (16:30)
--- NOTE | 2023-06-19 10:18 | CASEMGMT ---
TEE was not able to complete a PHQ9 with patient. Patient had a couple additional procedures done while at [facility] and when she returned she was still under light sedation. TEE left for the day and patient was discharged. Muriel COOPER
[2023-06-19 14:08] LABS: Anti-Centromere B Ab <0.2 AI (0.0-0.9); Anti-Chromatin <0.2 AI (0.0-0.9); Anti-Jo <0.2 AI (0.0-0.9); Anti-Scleroderma-70 AB <0.2 AI (0.0-0.9); Anti-dsDNA Ab 1 IU/mL (0-9); RNP Ab <0.2 AI (0.0-0.9); SJOGREN'S Anti-SS-A test < 0.2 AI (0.0-0.9); SJOGREN'S Anti-SS-B test < 0.2 AI (0.0-0.9); Smith Ab <0.2 AI (0.0-0.9)
[2023-06-19 16:09] LABS: Endomysial Antibody IgA Negative (Negative); Immunoglobulin A 379 mg/dL (87-352); t-Transglutaminase IgA <2 U/mL (0-3)
[2023-06-21 04:07] LABS: Albumin 2.8 g/dL (2.9-4.4); Alpha-1-Globulins 0.2 g/dL (0.0-0.4); Alpha-2-Globulins 0.9 g/dL (0.4-1.0); Cytoplasmic Ab (C-ANCA) <1:20 titer (Neg:<1:20); Deamidated Gliadin IgA 8 units (0-19); Deamidated Gliadin IgG 8 units (0-19); Endomysial Antibody IgA Negative (Negative); Gamma Globulin 1.1 g/dL (0.4-1.8); Immunoglobulin A 384 mg/dL (87-352); Immunoglobulin E 12 IU/mL (6-495); Immunoglobulin G 1049 mg/dL (586-1602); Immunoglobulin M 122 mg/dL (26-217); PROEL- TOTAL PROTEIN 6.1 g/dL (6.0-8.5); Perinuclear Ab (P-ANCA) <1:20 titer (Neg:<1:20); t-Transglutaminase IgA <2 U/mL (0-3)
[2023-06-22 17:07] LABS: Anti-Parietal Cell AB, QN 4.5 Units (0.0-20.0)
== END 2023-06-18 17:20 | disposition home or self-care (01) ==
LOC: ED 02:23 → PCU 03:11
PROVIDERS: Internal Medicine Gastroenterology; Admitting Provider Family Medicine; Emergency Provider Emergency Medicine; PCP Family Medicine; Visit Provider Internal Medicine
PROC: 0DJD8ZZ Inspection of Lower Intestinal Tract, Via Natural or Artificial Opening Endoscopic (ICD-10-PCS; CPT 45378; principal; 2023-06-18 12:40)
DX: G45.9 Transient cerebral ischemic attack, unspecified (principal); F31.9 Bipolar disorder, unspecified; E11.42 Type 2 diabetes mellitus with diabetic polyneuropathy; E66.01 Morbid (severe) obesity due to excess calories; Z68.41 Body mass index [BMI] 40.0-44.9, adult; D68.312 Antiphospholipid antibody with hemorrhagic disorder; Z79.4 Long term (current) use of insulin; Z79.82 Long term (current) use of aspirin; F41.9 Anxiety disorder, unspecified; H91.90 Unspecified hearing loss, unspecified ear; R29.705 NIHSS score 5; E78.5 Hyperlipidemia, unspecified; D50.0 Iron deficiency anemia secondary to blood loss (chronic); K57.30 Diverticulosis of large intestine without perforation or abscess without bleeding; G89.4 Chronic pain syndrome; E04.1 Nontoxic single thyroid nodule; F17.210 Nicotine dependence, cigarettes, uncomplicated; G47.33 Obstructive sleep apnea (adult) (pediatric); Z79.01 Long term (current) use of anticoagulants; R13.10 Dysphagia, unspecified; K21.00 Gastro-esophageal reflux disease with esophagitis, without bleeding; Z79.899 Other long term (current) drug therapy; R20.0 Anesthesia of skin; R29.810 Facial weakness; Z86.718 Personal history of other venous thrombosis and embolism; J45.909 Unspecified asthma, uncomplicated; D12.5 Benign neoplasm of sigmoid colon; Z86.711 Personal history of pulmonary embolism; F17.220 Nicotine dependence, chewing tobacco, uncomplicated; F17.290 Nicotine dependence, other tobacco product, uncomplicated; G25.81 Restless legs syndrome; G43.709 Chronic migraine without aura, not intractable, without status migrainosus; K22.89 Other specified disease of esophagus
CPT/HCPCS: 45385; 43249; 43239; J2916; 36415; 70450; 70496; 70498; 70553; 71045; 72156; 80048; 80053; 80061; 82274; 82607; 82728; 82746; 82784; 82785; 82962; 83036; 83516; 83540; 83550; 83735; 84165; 84439; 84443; 84484; 85025; 85610; 85652; 85730; 86140; 86225; 86235; 86255; 86256; 86334; 86340; 87633; 87635; 88305; 88312; 92610; 93005; 93306; 94668; 96361; 96365; 96366; 97116; 97161; 97166; 97530; 97803; 99221; 99252; 99285; A9575; J7030; J7040; J7050; J7120; Q9957; Q9967; A4216; C8929; G0378; G0463; J2405

== ENCOUNTER 2023-07-13 11:28 | Day surgery (SDC) | payer MEDICAID, SELFPAY ==
[2023-07-13] VITALS (8 sets, daily range): BP systolic 105–132; BP diastolic 62–82; PULSE 84–89; RESP 16–18; TEMP 36.2–36.4; O2SAT 89–96; BMI 38.7
[2023-07-13 12:03] LABS: Bedside Glucose 123 mg/dL (74-106)
[2023-07-13] MEDS: Lactated Ringers 1,000 ML 15 ML IV (12:11)
--- NOTE | 2023-07-13 12:30 | EGD_PTH ---
PATIENT: NEIDA MANNING LOC: EN U#:[id number] AGE/SX: 42/F ROOM: RE07/13/[address]: Dr. Amos Hodge DO : 1980 BED: DIS: 07/13/2023 SPEC #: [id number] RECD: 07/13/23 14:46 STATUS: MEDHAT RECheko #: [id number] [place]: 07/13/23 12:[address]: Amos Hodge DEPT: SURGICAL PATHOLOGY RECD BY: Miryam Crawford ENTERED: 07/16/23 08:26 SP TYPE: EGD BIOPSY OT DR: Dr. Albert Cheatham DO Tissues: A - Esophageal mucous membrane B - Esophageal mucous membrane Procedures: Surgery Specimen Level IV HEADER OPERATION: EGD, balloon dilation PRE-OP DIAGNOSIS: dysphagia, esophageal stricture TISSUE SUBMITTED: A. Esophageal stricture, B. Random esophagus MICROSCOPIC DIAGNOSIS A. Esophageal stricture, biopsy: Fragments of squamous mucosa with acute and chronic inflammation. See comment. B. Random esophagus, biopsy: Fragments of squamous mucosa with chronic inflammation. See comment. SJ: 07/17/2023 COMMENT A. Special stain for fungi is positive for organisms (yeast and pseudohyphae) consistent with Lisa species; matched control is appropriate. B. Special stain for fungi is negative for organisms; matched control is appropriate. Correlation with clinical, endoscopic findings and appropriate follow up are necessary. MICROSCOPIC DESCRIPTION Slides are reviewed. GROSS DESCRIPTION A. Received is one container labeled with the patient name and designated esophageal stricture. The specimen consists of multiple irregular fragments of light leslie soft tissue that in aggregate measure 1.5 x 0.3 x 0.1 cm. The specimen is totally submitted in one cassette. B. Received is one container labeled with the patient name and designated random esophagus. The specimen consists of multiple irregular fragments of light leslie soft tissue that in aggregate measure 1 x 0.3 x 0.1 cm. The specimen is totally submitted in one cassette. / ELYSSA:ga 07/16/23 TC:2 CPT: 44400n 2, 19779 x2
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
--- NOTE | 2023-07-13 13:49 | OP.EGD_ITS ---
Patient Name: Anne Marie Lepe Procedure Date: 07/13/2023 1:15 PM Date of : 1980 Age: 42 Procedure: Upper GI endoscopy Indications: Dysphagia Providers: Amos Hodge DO Referring MD: Albert Cheatham Medicines: Monitored Anesthesia Care Patient Profile: This is a 42 year old female. Refer to note in patient chart for documentation of history and physical. Patient has symptoms of dysphagia with both liquids and solids. Complications: No immediate complications. Procedure: Pre-Anesthesia Assessment: - Prior to the procedure, a History and Physical was performed, and patient medications and allergies were reviewed. The patient is competent. The risks and benefits of the procedure and the sedation options and risks were discussed with the patient. All questions were answered and informed consent was obtained. Patient identification and proposed procedure were verified by the physician in the pre-procedure area. Mental Status Examination: alert and oriented. Airway Examination: normal oropharyngeal airway and neck mobility. Respiratory Examination: clear to auscultation. CV Examination: normal. Prophylactic Antibiotics: The patient does not require prophylactic antibiotics. Prior Anticoagulants: The patient has taken no anticoagulant or antiplatelet agents. ASA Grade Assessment: II - A patient with mild systemic disease. After reviewing the risks and benefits, the patient was deemed in satisfactory condition to undergo the procedure. The anesthesia plan was to use monitored anesthesia care (MAC). Immediately prior to administration of medications, the patient was re-assessed for adequacy to receive sedatives. The heart rate, respiratory rate, oxygen saturations, blood pressure, adequacy of pulmonary ventilation, and response to care were monitored throughout the procedure. The physical status of the patient was re-assessed after the procedure. After obtaining informed consent, the endoscope was passed under direct vision. Throughout the procedure, the patient's blood pressure, pulse, and oxygen saturations were monitored continuously. The Endoscope was introduced through the mouth, and advanced to the second part of duodenum. The upper GI endoscopy was accomplished without difficulty. The patient tolerated the procedure well. Scope In: 1:23:47 PM Scope Out: 1:34:56 PM Total Procedure Duration Time 0 hours 11 minutes 9 seconds Findings: Five benign-appearing, intrinsic severe (stenosis; an endoscope cannot pass) stenoses were found 19 to 21 cm from the incisors. The stenoses were traversed after dilation. A TTS dilator was passed through the scope. Dilation with a 12-13.5-15 mm balloon dilator was performed to 15 mm. The dilation site was examined and showed complete resolution of luminal narrowing. Biopsies were obtained from the proximal and distal esophagus with cold forceps for histology of suspected eosinophilic esophagitis. The entire examined stomach was normal. The second portion of the duodenum was normal. Impression: - Benign-appearing esophageal stenoses. Dilated. - Normal stomach. - Normal second portion of the duodenum. - Biopsies were taken with a cold forceps for evaluation of eosinophilic esophagitis. Recommendation: - Discharge patient to home. - Full liquid diet today. - Continue present medications. - Await pathology results. - Repeat upper endoscopy in 2 months for retreatment. Procedure Code(s): --- Professional --- 62965, Esophagogastroduodenoscopy, flexible, transoral; with transendoscopic balloon dilation of esophagus (less than 30 mm diameter) 95062, 59,51, Esophagogastroduodenoscopy, flexible, transoral; with biopsy, single or multiple CPT copyright 2021 [employer]. All rights reserved. The codes documented in this report are preliminary and upon schedule checker review may be revised to meet current compliance requirements. Amos Hodge DO 07/13/2023 1:48:57 PM This report has been signed electronically. Number of Addenda: 0 Note Initiated On: 07/13/2023 1:15 PM
--- NOTE | 2023-07-13 13:49 | OP.CCLET_ITS ---
07/13/2023 Albert Cheatham [address] [place] [address] Re : Upper GI endoscopy procedure for Anne Marie Lepe Dear Dr. Cheatham This procedure was performed on Thursday, July 13, 2023. My impressions and recommendations are as follows: Impressions : - Benign-appearing esophageal stenoses. Dilated. - Normal stomach. - Normal second portion of the duodenum. - Biopsies were taken with a cold forceps for evaluation of eosinophilic esophagitis. Recommendations : - Discharge patient to home. - Full liquid diet today. - Continue present medications. - Await pathology results. - Repeat upper endoscopy in 2 months for retreatment. My findings are described in the full procedure note, which is enclosed. If I can be of further assistance, please feel free to contact me at . Sincerely, Amos Hodge, 07/13/2023 1:48:57 PM This report has been signed electronically.
== END 2023-07-13 15:03 | disposition home or self-care (01) ==
LOC: EN 11:29 → AC 11:32
PROVIDERS: PCP Family Medicine; Referring Provider Family Medicine; Visit Provider Internal Medicine Gastroenterology
PROC: 0DJ08ZZ Inspection of Upper Intestinal Tract, Via Natural or Artificial Opening Endoscopic (ICD-10-PCS; CPT 43235; principal; 2023-07-13 12:25)
DX: K22.2 Esophageal obstruction (principal); E11.42 Type 2 diabetes mellitus with diabetic polyneuropathy; Z79.4 Long term (current) use of insulin; D50.0 Iron deficiency anemia secondary to blood loss (chronic); R13.10 Dysphagia, unspecified; E78.5 Hyperlipidemia, unspecified; G47.33 Obstructive sleep apnea (adult) (pediatric); F41.9 Anxiety disorder, unspecified; F32.9 Major depressive disorder, single episode, unspecified; Z79.82 Long term (current) use of aspirin; Z79.01 Long term (current) use of anticoagulants; Z79.899 Other long term (current) drug therapy; Z86.711 Personal history of pulmonary embolism; Z87.891 Personal history of nicotine dependence
CPT/HCPCS: 43239; 43249; 82962; 88305; J7120; J2405

== ENCOUNTER → 2023-07-25 | Outpatient (CLI) | payer MEDICAID, SELFPAY ==
[2023-07-25 12:34] LABS: Absolute Lymphocyte Count 2.52 X10^3/uL (0.83-4.51); Absolute Neutrophil Count 7.1 X10^3/uL (2.0-7.7); Basophil# 0.08 X10^3/uL; Basophil% 0.8 % (0-1); Eosinophil# 0.07 X10^3/uL; Eosinophils% 0.7 % (0-5); Hematocrit 38.3 % (37-47); Hemoglobin 11.4 g/dL (12.0-15.0); Lymphocyte # 2.52 X10^3/ul (0.83-4.51); Lymphocyte % 23.9 % (19-41); Mean Corp Hgb Conc 29.8 g/dL (32-36); Mean Corpuscular Hgb 23.3 pg (27.0-32.0); Mean Corpuscular Volume 78.3 fL (81-99); Mean Platelet Vol. 9.7 fl (6.2-12.0); Monocyte# 0.68 X10^3/uL; Monocyte% 6.4 % (0-10); NRBC Flagged by Analyzer 0 % (0-5); Neutrophil # 7.08 X10^3/uL (2.7-7.7); Neutrophil % 67.1 % (47-70); Platelet Count 370 K/mm3 (150-450); RBC Distribution Width CV 17.9 % (11.6-14.6); RBC Distribution Width SD 50.3 fl (35.1-43.9); Red Blood Count 4.89 M/mm3 (4.2-5.4); White Blood Count 10.6 K/mm3 (4.4-11.0)
[2023-07-25 12:51] LABS: Ferritin 6 ng/mL (8-252); Iron 28 ug/dL (50-170)
== END | disposition home or self-care (01) ==
LOC: BFHLAB 10:13
PROVIDERS: PCP Family Medicine; Visit Provider Family Medicine
DX: D64.9 Anemia, unspecified (principal)
CPT/HCPCS: 36415; 82728; 83540; 85025

== ENCOUNTER 2023-07-31 05:16 | Day surgery (SDC) | payer MEDICAID, SELFPAY ==
--- NOTE | 2023-07-30 | IMM_PTH ---
PATIENT: NEIDA MANNING LOC: EN U#:[id number] AGE/SX: 42/F ROOM: RE07/31/[address]: Dr. Amos Hodge DO : 1980 BED: DIS: 07/31/2023 SPEC #: [id number] RECD: 08/01/23 14:09 STATUS: MEDHAT REQ #: [id number] [place]: 07/30/23 00:[address]: Amos Hodge DEPT: IMMUNOHISTOCHEMISTRY RECD BY: Dana Hancock ENTERED: 08/01/23 14:10 SP TYPE: IMMUNO OTHR DR: Dr. Albert Cheatham DO Tissues: A - Esophagus, NOS B - Esophagus, NOS Procedures: P53 (initial) KI-67 (add) Pankeratin (add) CD68 (ADD) MOC-31 (add) PHYSICIAN & INSTITUTION [place] [id number] SPECIMEN INFORMATION: Tissue Source: A - Esophagus, B - Distal esophagus Clinical Info: Lichen planus esophagitis Specimen Number: [id number] A & B CPT code: 33816 x2, 24383 x4 METHODOLOGY: Deparaffinized sections of prefer/formalin-fixed tissue or PAP/DQ stained slides are incubated with monoclonal/polyclonal antibodies/oligonucleotide probes. Localization is made via biotin free immunoperoxidase method. Appropriate controls are performed and reacted as expected. Results on target cell population are indicated in the following table: RESULTS: ANTIBODY / CLONE RESULT Block A CD68 (KP-1) positive P53 (DO-7) negative AE1-3 (AE1/AE3/PCK26) negative Block B P53 (DO-7) positive, indeterminate pattern Ki-67 (30-9) positive MOC-31 (4561) positive These tests were developed and their performance characteristics determined by [facility]. They may not have been cleared or approved by the U.S. Food and Drug Administration. The FDA has determined that such clearance or approval is not necessary. The above immunohistochemical/dualISH markers are ordered and reviewed by the Pathologist. INTERPRETATION: A. Esophagus, random biopsy: No evidence of dysplasia. B. Distal esophagus, biopsy: Indeterminate for low-grade dysplasia. AM:samir 08/06/2023
--- NOTE | 2023-07-30 06:30 | EGD_PTH ---
PATIENT: NEIDA MANNING LOC: EN U#:[id number] AGE/SX: 42/F ROOM: RE07/31/[address]: Dr. Amos Hodge DO : 1980 BED: DIS: 07/31/2023 SPEC #: [id number] RECD: 07/31/23 12:09 STATUS: MEDHAT SHANNAN #: [id number] [place]: 07/30/23 06:[address]: Amos Hodge DEPT: SURGICAL PATHOLOGY RECD BY: Miryam Crawford ENTERED: 07/31/23 12:11 SP TYPE: EGD BIOPSY OT DR: Dr. Albert Cheatham DO Tissues: A - Esophageal mucous membrane B - Esophageal mucous membrane Procedures: Special Stain Group II Special Stain Group I Surgery Specimen Level IV AFB Stain (control) GMS Stain (control) Alcian Blue/PAS (control) HEADER OPERATION: EGD with biopsy and dilation PRE-OP DIAGNOSIS: Lichen planus esophagitis TISSUE SUBMITTED: A - Random esophagus biopsy, B - Distal esophagus biopsy MICROSCOPIC DIAGNOSIS A. Esophagus, random biopsy: Gastroesophageal junctional mucosa with chronic inflammation. Ulceration with associated acute and chronic inflammation and granulation. Fibrinopurulent material. Negative for acid-fast bacilli and fungal organisms. See comment. B. Distal esophagus, biopsy: Gastroesophageal junctional mucosa with chronic inflammation. 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 Indefinite for low-grade dysplasia. See comment. AM:samir 08/06/2023 COMMENT A. Immunohistochemistry ([id number]) for P53 and Ki-67 will be performed and results will be reported separately. AFB and GMS stains with matched controls were used in the evaluation of this case. B. Alcian blue/PAS stain with matched control supports the above diagnosis. Immunohistochemistry ([id number]) for P53 and Ki-67 will be performed and results will be reported separately. MICROSCOPIC DESCRIPTION Slides are reviewed. GROSS DESCRIPTION A - Received in fixative is one container labeled with the patient's name and designated random esophagus. The specimen consists of multiple irregular fragments of light leslie soft tissue that in aggregate measure 1.5 x 0.5 x 0.1 cm. The specimen is totally submitted in one cassette. B - Received in fixative is one container labeled with the patient's name and designated esophagus. The specimen consists of three irregular fragments of light leslie soft tissue that in aggregate measure 1.0 x 0.3 x 0.1 cm. The specimen is totally submitted in one cassette. / AM:samir 07/31/2023 TC:3 CPT: 47158 x2, 30273 x2, 75803
[2023-07-31] MEDS: Lactated Ringers 1,000 ML 15 ML IV (05:40)
[2023-07-31 05:47] VITALS: BP 133/72; PULSE 94; RESP 18; TEMP 36.7; O2SAT 97; BMI 38.3
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
[2023-07-31 06:57] VITALS: BP 118/76; BP 133/72; PULSE 90; RESP 16; TEMP 36.3; O2SAT 97
--- NOTE | 2023-07-31 06:58 | OP.EGD_ITS ---
Patient Name: Anne Marie Lepe Procedure Date: 07/31/2023 6:13 AM Date of : 1980 Age: 42 Procedure: Upper GI endoscopy Indications: Dysphagia Providers: Amos Hodge DO Referring MD: Albert Cheatham Medicines: Monitored Anesthesia Care Patient Profile: This is a 42 year old female. Refer to note in patient chart for documentation of history and physical. Patient has symptoms of chronic dysphagia. Complications: No immediate complications. Procedure: Pre-Anesthesia Assessment: - Prior to the procedure, a History and Physical was performed, and patient medications and allergies were reviewed. The patient is competent. The risks and benefits of the procedure and the sedation options and risks were discussed with the patient. All questions were answered and informed consent was obtained. Patient identification and proposed procedure were verified by the physician. Mental Status Examination: alert and oriented. Airway Examination: normal oropharyngeal airway and neck mobility. Respiratory Examination: clear to auscultation. CV Examination: normal. Prophylactic Antibiotics: The patient does not require prophylactic antibiotics. Prior Anticoagulants: The patient has taken no anticoagulant or antiplatelet agents. ASA Grade Assessment: III - A patient with severe systemic disease. After reviewing the risks and benefits, the patient was deemed in satisfactory condition to undergo the procedure. The anesthesia plan was to use monitored anesthesia care (MAC). Immediately prior to administration of medications, the patient was re-assessed for adequacy to receive sedatives. The heart rate, respiratory rate, oxygen saturations, blood pressure, adequacy of pulmonary ventilation, and response to care were monitored throughout the procedure. The physical status of the patient was re-assessed after the procedure. After obtaining informed consent, the endoscope was passed under direct vision. Throughout the procedure, the patient's blood pressure, pulse, and oxygen saturations were monitored continuously. The Endoscope was introduced through the mouth, and advanced to the second part of duodenum. The upper GI endoscopy was accomplished without difficulty. The patient tolerated the procedure well. Scope In: 6:36:39 AM Scope Out: 6:47:48 AM Total Procedure Duration Time 0 hours 11 minutes 9 seconds Findings: Two benign-appearing, intrinsic moderate (circumferential scarring or stenosis; an endoscope may pass) stenoses were found 25 to 28 cm from the incisors. The stenoses were traversed. A guidewire was placed and the scope was withdrawn. Dilation was performed with a Savary dilator with moderate resistance at 42 Fr. The dilation site was examined and showed moderate mucosal disruption. Estimated blood loss was minimal. Diffuse spontaneous mucosal sclerosis was found in the entire esophagus. Biopsies were taken with a cold forceps for histology. Verification of patient identification for the specimen was done. Estimated blood loss was minimal. The Z-line was irregular and was found 33 cm from the incisors. Biopsies were taken with a cold forceps for histology. Verification of patient identification for the specimen was done. Estimated blood loss was minimal. A small hiatal hernia was present. A small amount of food (residue) was found in the gastric body. The duodenal bulb was normal. Impression: - Benign-appearing esophageal stenoses. Dilated. - Esophageal mucosal sclerosis. Biopsied. - Z-line irregular, 33 cm from the incisors. Biopsied. - Small hiatal hernia. - A small amount of food (residue) in the stomach. - Normal duodenal bulb. Recommendation: - Discharge patient to home. - Resume previous diet. - Continue present medications. - Await pathology results. Procedure Code(s): --- Professional --- 26525, Esophagogastroduodenoscopy, flexible, transoral; with insertion of guide wire followed by passage of dilator(s) through esophagus over guide wire [id number], 59,51, Esophagogastroduodenoscopy, flexible, transoral; with biopsy, single or multiple CPT copyright 2021 [employer]. All rights reserved. The codes documented in this report are preliminary and upon turning sander operator review may be revised to meet current compliance requirements. Amos Hodge DO 07/31/2023 6:57:22 AM This report has been signed electronically. Number of Addenda: 0 Note Initiated On: 07/31/2023 6:13 AM
--- NOTE | 2023-07-31 06:58 | OP.CCLET_ITS ---
07/31/2023 Albert Cheatham [address] [facility] [address] Re : Upper GI endoscopy procedure for Anne Marie Lepe Dear Dr. Cheatham This procedure was performed on Monday, July 31, 2023. My impressions and recommendations are as follows: Impressions : - Benign-appearing esophageal stenoses. Dilated. - Esophageal mucosal sclerosis. Biopsied. - Z-line irregular, 33 cm from the incisors. Biopsied. - Small hiatal hernia. - A small amount of food (residue) in the stomach. - Normal duodenal bulb. Recommendations : - Discharge patient to home. - Resume previous diet. - Continue present medications. - Await pathology results. My findings are described in the full procedure note, which is enclosed. If I can be of further assistance, please feel free to contact me at . Sincerely, Amos Hodge, 07/31/2023 6:57:22 AM This report has been signed electronically.
[2023-07-31 07:00] VITALS: BP 118/76; BP 133/72; PULSE 90; RESP 16; O2SAT 92
[2023-07-31 07:05] VITALS: BP 128/86; BP 133/72; PULSE 90; RESP 16; O2SAT 92
[2023-07-31 07:16] VITALS: BP 117/82; BP 133/72; PULSE 84; RESP 16; TEMP 36.6; O2SAT 94
[2023-07-31] MEDS: Pantoprazole Sodium 40 MG in 0.9% Normal Saline (100mL MB+) 100 ML 330 MG IV (07:42)
[2023-07-31 08:19] VITALS: BP 133/72
== END 2023-07-31 08:20 | disposition home or self-care (01) ==
LOC: EN 05:17 → AC 05:18
PROVIDERS: PCP Family Medicine; Referring Provider Family Medicine; Visit Provider Internal Medicine Gastroenterology
PROC: 0DJ08ZZ Inspection of Upper Intestinal Tract, Via Natural or Artificial Opening Endoscopic (ICD-10-PCS; CPT 43235; principal; 2023-07-31 06:25)
DX: K22.10 Ulcer of esophagus without bleeding (principal); E11.42 Type 2 diabetes mellitus with diabetic polyneuropathy; Z79.4 Long term (current) use of insulin; D50.0 Iron deficiency anemia secondary to blood loss (chronic); R13.10 Dysphagia, unspecified; K22.2 Esophageal obstruction; K44.9 Diaphragmatic hernia without obstruction or gangrene; G47.33 Obstructive sleep apnea (adult) (pediatric); F41.9 Anxiety disorder, unspecified; F32.A Depression, unspecified; G25.81 Restless legs syndrome; Z79.899 Other long term (current) drug therapy; Z79.82 Long term (current) use of aspirin; Z79.01 Long term (current) use of anticoagulants; Z86.711 Personal history of pulmonary embolism; Z86.718 Personal history of other venous thrombosis and embolism; Z87.891 Personal history of nicotine dependence
CPT/HCPCS: 43248; 43239; 81002; 88305; 88312; 88313; 88341; 88342; J7120; C1769; J2405

== ENCOUNTER 2023-08-13 19:14 | Observation (INO) | payer MEDICAID, SELFPAY ==
[2023-08-13 19:15] VITALS: BP 127/80; PULSE 108; RESP 18; TEMP 36.8; O2SAT 95; BMI 38.4
--- NOTE | 2023-08-13 20:28 | ED.VIS.GI ---
HPI HPI - GI History of Present Illness Chief Complaint: GI Bleed Informant: patient Narrative Narrative: Presents with blood in stool. Patient is on both Eliquis and aspirin due to history of clotting disorders. She has had TIAs as well as PEs and DVTs. She states last week she had some blood in her stool intermittently. It was bright red. She was not having discomfort at the time. No clots were seen. Today she had more blood. And today she has some discomfort mostly along the left side of her abdomen. It goes a little bit from epigastrium down toward the left lower quadrant. No nausea or vomiting. Patient has some difficulty swallowing but she has had dilation of the esophagus any times and this is really an ongoing issue. It sounds like she has had EGDs within the last month or 2 and had a colonoscopy last in June by Dr. Hodge. They evidently contacted Dr. Hodge today who referred her in here. [facility] Medical History Acute DVT (deep venous thrombosis) Anti-phospholipid antibody syndrome Anxiety Arthritis Asthma Atopic dermatitis Back pain Bone fracture Chronic back pain Chronic cough Chronic ethmoidal sinusitis Chronic mastoiditis Chronic pain CPAP (continuous positive airway pressure) dependence Depression Diabetes DM type 2 (diabetes mellitus, type 2) DVT (deep venous thrombosis) GERD (gastroesophageal reflux disease) GERD (gastroesophageal reflux disease) Hx of lichen planus Hyperlipidemia Hypothyroidism Loose, teeth Migraine headache Morbid obesity Myalgia and myositis SIERRA (obstructive sleep apnea) Peripheral edema Peripheral neuropathy Pulmonary embolism Recurrent UTI Restless legs syndrome Rosacea Sarcoidosis Seasonal allergies Smoker Wears hearing aid in both ears Home Medications liraglutide 0.6 mg/0.1 mL (18 mg/3 mL) subcutaneous pen injector (Victoza 2-Kobe) 1.8 mg subcut DAILY diabetes 01/31/18 [History Last Taken 06/11/19] pantoprazole 40 mg tablet,delayed release 40 mg PO BID reflux 01/31/18 [History Last Taken 07/31/23 04:00] pramipexole 1 mg tablet 1 mg PO BID restless legs 01/31/18 [History Last Taken 07/13/23] oxcarbazepine 300 mg tablet 300 mg PO BID DEPRESSION 06/11/19 [History Last Taken 07/31/23 04:00] trazodone 100 mg tablet 50 - 200 mg PO QHS SLEEP 06/11/19 [History Last Taken 01/14/21] citalopram 40 mg tablet 40 mg PO DAILY mental health #0 tabs 06/12/19 [Rx Last Taken 07/31/23 04:00] hydroxyzine pamoate 50 mg capsule 50 mg PO TID mental health ##0 06/12/19 [Rx Last Taken 07/31/23 04:00] albuterol sulfate 90 mcg/actuation aerosol inhaler (Ventolin HFA) 1 inh inhalation PRN PRN breathing 12/23/20 [History Last Taken Unknown] apixaban 5 mg tablet (Eliquis) 5 mg PO BID blood thinner 12/23/20 [History Last Taken 07/27/23] oxybutynin chloride 10 mg tablet,extended release 24 hr 10 mg PO DAILY bladder 12/23/20 [History Last Taken Unknown] pregabalin 100 mg capsule (Lyrica) 100 mg PO TID pain 12/23/20 [History Last Taken 07/13/23] triamcinolone acetonide 0.1 % topical cream 1 applic topical PRN PRN Skin Cleansing 12/23/20 [History Last Taken 01/14/21] aspirin 81 mg tablet,delayed release 81 mg PO DAILY heart health 06/16/23 [History Last Taken 07/27/23] clotrimazole-betamethasone 1 %-0.05 % lotion 1 applic topical Q12H 06/16/23 [History Last Taken Unknown] cyclobenzaprine 10 mg tablet 10 mg PO TID pain 06/16/23 [History Last Taken 07/13/23] insulin lispro protamine-lispro 100 unit/mL (75-25) subcutaneous pen (Humalog Mix 75-25 KwikPen) 25 unit subcut BID diabetes 06/16/23 [History Last Taken Unknown] metronidazole 0.75 % (37.5 mg/5 gram) vaginal gel 1 appful vaginal .MAXI 06/16/23 [History Last Taken Unknown] oxycodone-acetaminophen 10 mg-325 mg tablet 1 tab PO Q8H pain 06/16/23 [History Last Taken 07/13/23] quetiapine 300 mg tablet 300 mg PO DAILY mental health 06/16/23 [History Last Taken Unknown] folic acid 1 mg tablet 2 mg (2 x 1 mg) PO BREAKFAST 30 days #60 tabs 06/18/23 [Rx Last Taken 07/13/23] polysaccharide iron complex 150 mg iron capsule (Ferrex) 150 mg PO DAILY 30 days #30 caps 06/18/23 [Rx Last Taken Unknown] rosuvastatin 20 mg tablet (Crestor) 20 mg PO DAILY #30 tabs 06/18/23 [Rx Last Taken Unknown] sucralfate 1 gram tablet 1 g PO TIDAC 30 days #90 tabs 06/20/23 [Rx Last Taken Unknown] prednisolone sodium phosphate 20 mg/5 mL (4 mg/mL) oral solution 50 mg (12.5 mL) PO .q daily 30 days #237 mL 07/13/23 [Rx Last Taken 07/31/23 05:00] lidocaine HCl 2 % mucosal solution (Lidocaine Viscous) 1 applic mucous membrane BID PRN pain #100 mL 08/01/23 [Rx Last Taken Unknown] Allergy/AdvReac Type Severity Reaction Status Date / Time levothyroxine Allergy Mild PT UNSURE Verified 08/13/23 19:15 OF REACTION tramadol HCl [From Ultram] AdvReac Vomiting Verified 08/13/23 19:15 Family History Father Diabetes Asthma Brother Asthma Unknown Asthma Arthritis Diabetes Heart disease Hypertension Thyroid disorder Surgical History History of cholecystectomy History of colonoscopy History of esophagogastroduodenoscopy (EGD) history of sinusplasty History of total hysterectomy History of tubal ligation Hx of cystoscopy lymph node removal Social History household members: significant other Smoking Status: Current every day smoker tobacco type: e-cigarettes and smokeless tobacco alcohol intake: never substance use type: does not use ROS ROS ED ROS Narrative A complete review of systems was performed and is negative except as documented in the history of present illness. Some specific details below. Constitutional: No recent fevers or chills. No malaise. EYE: No visual complaints or pain. ENT: Difficulty swallowing. Long history of this. No real GERD symptoms though. CV: No chest pain or palpitations. Respiratory: No dyspnea. No hemoptysis. No difficulty taking breaths. GI: Please see history of present illness. : No frequency dysuria or hematuria. Musculoskeletal: No recent trauma. No pains. Skin: No rash. Nondiaphoretic. Neuro: No new weakness or numbness. Had multiple TIAs and recent workups for these. Endocrine: No polyuria or polydipsia. EXAM Physical Exam Narrative Exam Narrative: CONSTITUTIONAL: Patient is nontoxic in appearance. The patient looks comfortable. Does not look pale HEENT: No notable trauma. Mucous membranes moist. No sinus tenderness. No indication of pain with swallowing. EYES: No conjunctival injection. No significant pallor.. CARDIOVASCULAR: Regular rate. Her rate is about 90 when I listen. Regular rhythm. No notable murmur. No JVD. RESPIRATORY: No respiratory distress. Breathing is unlabored. No wheezes. No rhonchi. No rales. No pain with a deep breath. GASTROINTESTINAL: Not distended. Bowel sounds are normal. Minimal tenderness along the left side of the abdomen. But no guarding. No rebound. No palpable mass. No bruit. She did show me pictures of the blood in the toilet over the last week. GENITOURINARY: No tenderness over the bladder. No CVA tenderness. MUSCULOSKELETAL: Atraumatic. No peripheral edema. No cord. No tenderness along the deep venous system. No asymmetry. NEUROLOGICAL: Patient is alert and appropriate. No focal deficit noted. SKIN: No noted rashes. No diaphoresis. PSYCHIATRIC: Patient is calm. Mood is appropriate. Const Vital Signs: 08/13/23 19:15 08/13/23 21:15 08/13/23 23:24 Temperature 98.2 F Temperature Source Temporal Pulse Rate 108 H 88 93 Respiratory Rate 18 16 16 Blood Pressure 127/80 H 124/83 H 120/70 Blood Pressure Mean 95 96 86 Pulse Ox 95 99 98 Oxygen Delivery Method Room Air Room Air Room Air MDM MDM MDM Narrative Medical decision making narrative: My independent interpretation of the patient's CT of the abdomen does not show any acute diverticulitis or notable bleeding or acute process. Final reading is an alert and they do note some decreased attenuation of the liver on the final reading. Patient CBC shows normal white count, normal hemoglobin and normal platelets. Patient's electrolytes are overall normal other than an elevated glucose at 301. BUN is not elevated. Patient's liver function test show no marked abnormalities. Minimal elevation of the alkaline phosphatase. I did discuss the case with Dr. Hodge whom this patient has seen several times. Although this patient's blood pressure and heart rate are good, her labs are good, she has known diverticular disease and is on both Eliquis and aspirin. Because of her significant history of clots including TIAs, PEs and DVTs we would prefer not to stop the Eliquis at this time. Since she is clinically stable we will continue Eliquis but she will be placed in the hospital. The risk is that this could be diverticular bleed which could increase quickly and then she has a much higher risk patient for this. I discussed the case with the hospitalist. Lab Data Attestation: I reviewed the patient's lab results. Labs: Laboratory Results - last 24 hr 08/13/23 21:10 WBC 9.9 RBC 5.15 Hgb 12.0 Hct 39.8 MCV 77.3 L MCH 23.3 L MCHC 30.2 L RDW Std Deviation 49.3 H RDW Coeff of Karina 17.9 H Plt Count 343 MPV 9.6 Immature Gran % (Auto) 0.900 Neut % (Auto) 54.4 Lymph % (Auto) 34.7 Preston % (Auto) 8.1 Eos % (Auto) 1.3 Baso % (Auto) 0.6 Absolute Neuts (auto) 5.4 Absolute Lymphs (auto) 3.42 Nucleated RBC % 0 Sodium 137 Potassium 4.3 Chloride 105 Carbon Dioxide 24.0 Anion Gap 8 BUN 10 Creatinine 0.95 Estim Creat Clear Calc 75.78 Est GFR (MDRD) Af Amer 84 Est GFR (MDRD) Non-Af 69 BUN/Creatinine Ratio 10.6 Glucose 301 H Calcium 8.9 Total Bilirubin 0.20 AST 7 L ALT 23 Alkaline Phosphatase 124 H Total Protein 7.0 Albumin 2.7 L Globulin 4.3 H Albumin/Globulin Ratio 0.6 L Radiography Diagnostic Testing: Clinical Impression(s) from Imaging Studies Abdomen/Pelvis CT 08/13/23 21:45 IMPRESSION: 1. No acute abnormality. 2. Decreased attenuation of the liver which may represent fatty infiltration. Electronically Signed: Garth Hicks DO at 22:47 EST , Discharge Plan Triage Chief Complaint: GI Bleed ED Provider: Dayron Choi Dx/Rx/DC Orders Clinical Impression: Medication induced coagulopathy, History of diverticulosis, Bright red blood per rectum, History of TIAs Prescriptions: No Action Victoza 2-Kobe 0.6 mg/0.1 mL (18 mg/3 mL) pen injector 1.8 mg SC DAILY Eliquis 5 mg tablet 5 mg PO BID Patient Comments: WILL STOP 2 DAYS PRIOR pregabalin [Lyrica] 100 mg capsule 100 mg PO TID oxybutynin chloride 10 mg tablet extended release 24hr 10 mg PO DAILY triamcinolone acetonide 0.1 % cream 1 applic TOPICAL PRN PRN (Reason: Skin Cleansing) albuterol sulfate [Ventolin HFA] 90 mcg/actuation HFA aerosol inhaler 1 inh INHALATION PRN PRN (Reason: breathing) pantoprazole 40 mg tablet,delayed release (DR/EC) 40 mg PO BID Patient Comments: acid reflex pramipexole 1 mg tablet 1 mg PO BID Patient Comments: muscle spasms oxcarbazepine 300 mg tablet 300 mg PO BID Patient Comments: 1 tablet twice a day trazodone 100 MG tablet 50 - 200 mg PO QHS citalopram 40 mg tablet 40 mg PO DAILY Qty: 0 0RF Rx Instructions: hold while taking ciprofloxacin hydroxyzine pamoate 50 mg capsule 50 mg PO TID Qty: 0 0RF Patient Comments: 1 capsule three times a day as needed Rx Instructions: hold while taking ciprofloxacin aspirin 81 mg tablet,delayed release (DR/EC) 81 mg PO DAILY Hold Instructions: Resume on 06/25/23. Patient Comments: TAKE 1 TABLET BY MOUTH ONCE DAILY cyclobenzaprine 10 mg tablet 10 mg PO TID Patient Comments: TAKE 1/2 TO 1 (ONE-HALF TO ONE) TABLET BY MOUTH THREE TIMES DAILY NEEDED clotrimazole-betamethasone 1-0.05 % lotion 1 applic TOPICAL Q12H Patient Comments: APPLY LOTION TOPICALLY TO AFFECTED AREA TWICE DAILY NEEDED insulin lispro protamin-lispro [Humalog Mix 75-25 KwikPen] 100 unit/mL (75-25) insulin pen 25 unit SUBCUT BID Patient Comments: INJECT 25 UNITS SUBCUTANEOUSLY TWICE DAILY IN THE MORNING AND IN THE EVENING metronidazole 0.75 % (37.5mg/5 gram) gel 1 appful VAGINAL .MAXI Patient Comments: INSERT 1 APPLICATORFUL VAGINALLY ONCE DAILY NEEDED FOR 5 DAYS oxycodone-acetaminophen 10-325 mg tablet 1 tab PO Q8H Patient Comments: TAKE 1 TABLET BY MOUTH THREE TIMES DAILY NEEDED CHRONIC INTRACTABLE PAIN quetiapine 300 mg tablet 300 mg PO DAILY Patient Comments: TAKE 1 TABLET BY MOUTH ONCE DAILY AT BEDTIME rosuvastatin [Crestor] 20 mg tablet 20 mg PO DAILY Qty: 30 0RF Rx Instructions: TO REPLACE 10mg polysaccharide iron complex [Ferrex 150] 150 mg iron Capsule 150 mg PO DAILY 30 Days Qty: 30 0RF folic acid 1 mg Tablet 2 mg PO BREAKFAST 30 Days Qty: 60 0RF prednisolone sodium phosphate 20 mg/5 mL (4 mg/mL) solution 50 mg PO .q daily 30 Days Qty: 237 3RF Rx Instructions: administer 13 hr, 7 hr, and 1 hr before time of procedure sucralfate 1 gram tablet 1 g PO TIDAC 30 Days Qty: 90 0RF lidocaine HCl [Lidocaine Viscous] 2 % solution 1 applic mucous membrane BID PRN (Reason: pain) Qty: 100 1RF Primary Care Provider: Albert Cheatham Referrals: Albert Cheatham DO [Primary Care Provider] - Disposition Disposition: [facility] ([facility]3] Care [facility]
[2023-08-13 21:15] VITALS: BP 124/83; PULSE 88; RESP 16; O2SAT 99
[2023-08-13 21:18] LABS: Absolute Lymphocyte Count 3.42 X10^3/uL (0.83-4.51); Absolute Neutrophil Count 5.4 X10^3/uL (2.0-7.7); Basophil# 0.06 X10^3/uL; Basophil% 0.6 % (0-1); Eosinophil# 0.13 X10^3/uL; Eosinophils% 1.3 % (0-5); Hematocrit 39.8 % (37-47); Lymphocyte # 3.42 X10^3/ul (0.83-4.51); Lymphocyte % 34.7 % (19-41); Mean Corp Hgb Conc 30.2 g/dL (32-36); Mean Corpuscular Hgb 23.3 pg (27.0-32.0); Mean Corpuscular Volume 77.3 fL (81-99); Mean Platelet Vol. 9.6 fl (6.2-12.0); Monocyte% 8.1 % (0-10); NRBC Flagged by Analyzer 0 % (0-5); Neutrophil # 5.35 X10^3/uL (2.7-7.7); Neutrophil % 54.4 % (47-70); Platelet Count 343 K/mm3 (150-450); RBC Distribution Width CV 17.9 % (11.6-14.6); RBC Distribution Width SD 49.3 fl (35.1-43.9); Red Blood Count 5.15 M/mm3 (4.2-5.4); White Blood Count 9.9 K/mm3 (4.4-11.0)
[2023-08-13 21:42] LABS: ALB/GLOB Ratio 0.6 RATIO (0.9-2.4); AST(SGOT) 7 U/L (15-37); Alanine Aminotransfer ALT/SGPT 23 U/L (13-56); Albumin, Serum 2.7 g/dL (3.2-5.0); Alkaline Phosphatase 124 U/L (45-117); Anion Gap 8 (5-15); BUN 10 mg/dL (7-18); BUN/Creat Ratio 10.6 RATIO (10-20); Calcium,Total 8.9 mg/dL (8.5-10.1); Chloride 105 mmol/L (98-107); Creatinine, Serum 0.95 mg/dL (0.55-1.02); EST Glomerular Filtration Rate 69 mL/min (>60); Est Glom Filt Rate - Afr Amer 84 mL/min (>60); Estimated Creatinine Clearance 75.78 ml/min; Globulin 4.3 g/dL (2.2-4.2); Glucose 301 mg/dL (74-106); Potassium 4.3 mmol/L (3.5-5.1); Sodium Level 137 mmol/L (136-145)
--- NOTE | 2023-08-13 21:45 | CT_ITS ---
INDICATION: pain, bleeding EXAMINATION: CT Abdomen And Pelvis W/ Contrast Injection TECHNIQUE: Helically acquired images were obtained of the abdomen and pelvis with sagittal and coronal reconstructed images. Individualized dose optimization techniques were used for this CT. IV contrast dosage and agent: 100 mL of Isovue 300. Oral contrast: None. COMPARISON: 06/11/2019 CT. FINDINGS: VESSELS: No abdominal aortic aneurysm or dissection. LIVER: No evidence of a mass. Mild dilation of the common bile duct likely representing chronic postcholecystectomy change. Diffuse decreased attenuation. GALLBLADDER: Status post cholecystectomy. PANCREAS: No focal solid or cystic mass. No evidence of pancreatitis. SPLEEN: Normal. ADRENAL GLANDS: Normal. KIDNEYS AND URETERS: No urinary tract stone. No hydronephrosis or hydroureter. No significant asymmetric perinephric stranding. URINARY BLADDER: Unremarkable. BOWEL: No evidence of diverticulosis or diverticulitis. Appendix appears normal. No evidence of bowel obstruction. REPRODUCTIVE ORGANS: No evidence of a pelvic mass. PERITONEUM: No intraabdominal free fluid or free air. LYMPH NODES: No pathologically enlarged mesenteric or retroperitoneal lymph nodes. ABDOMINAL WALL: No abdominal or pelvic wall hernia. BONES: No acute abnormality. 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 LOWER CHEST: Visualized lung bases are unremarkable. CT/Abdomen/Pelvis W IV Cont ONLY IMPRESSION: 1. No acute abnormality. 2. Decreased attenuation of the liver which may represent fatty infiltration. Electronically Signed: Garth Hicks DO at 22:47 EST ,
[2023-08-13 23:24] VITALS: BP 120/70; PULSE 93; RESP 16; O2SAT 98
--- NOTE | 2023-08-13 23:32 | HP.PCM.HOS_ITS ---
[facility] Date of Admission: 08/13/23 Date of Service: 08/13/23 Chief Complaint: Lower GI bleed HPI Narrative NEIDA LEPE, is a 42 F with a past medical history of antiphospholipid syndrome; with multiple previous TIAs, DVTs, PEs and 2 miscarriages on aspirin and Eliquis chronically, history of diverticulosis; with previous lower GI bleed followed by Dr. Hodge of gastroenterology, hyperlipidemia, hypothyroidism, obesity; with a BMI of 38.5 this admission, obstructive sleep apnea; not using CPAP, chronic back pain, asthma, generalized anxiety, diabetes mellitus type 2; of unknown control, recurrent UTIs, rosacea, restless leg syndrome, peripheral neuropathy, chronic lower extremity edema, history of lichen planus, GERD; with chronic difficulty swallowing, history of migraine headaches and recent surgery for a bone spur on her Right great toe by Dr. Tesha Levi of podiatry from the [facility] last week who presents to [facility] ER complaining of lower GI bleeding. Ms. Lepe reports her symptoms began approximately 4 days prior to admission when she developed blood in her stools last with intermittent bleeding since that time. She describes the blood as bright red and she denies significant abdominal pain associated with her bleeding but she does admit to constipation that seemed to be worse since her surgery as she is chronically on Oxycodone TID for years without a signi ficant decrease in her bowel motility - until now. She also admits to severe insomnia that has persisted since the unexpected of her boyfriend about 6 months ago - for which she is in counselling - but she is still struggling to cope. Then earlier on 08/13/2023 she developed more vigorous bleeding and some mild discomfort on the Left side of her abdomen so she spoke with her sister who encouraged her to come in for further evaluation and treatment. She states she has had an EGD within the last month and she has previously underwent colonoscopy in June [address] Hodge. The patient then contacted Dr. Hodge this evening and was also instructed to come in for further evaluation and treatment. In the ER she was diagnosed with a lower GI bleed with BRBPR that is likely diverticular in origin precipitated by suspected adverse drug reaction to combination of aspirin and Eliquis with a hemoglobin of 12 g/dL present on admission (up from her baseline of 11.4 g/dL approximately 3 weeks ago) likely triggered by constipation after her recent podiatric surgery for bone spur of her right great toe with the ER physician having a conversation with Dr. Hodge who recommended patient be continued on her Eliquis at this time because the risk of stopping these agents is greater then any potential benefit as her bleeding has already stopped at this time. She was then admitted to the general medical floor under observation status for a stay that is expected to be less than 48 hours. Past surgical history: History of cholecystectomy, history of colonoscopy, history of EGD, history of sinuplasty, history of total abdominal hysterectomy, history of tubal ligation, history of cystoscopy and history of lymph node removal. [facility] Medical History (Updated 08/13/23 @ 23:[address] Master Palomino DO) Acute DVT (deep venous thrombosis) Anti-phospholipid antibody syndrome Anxiety Arthritis Asthma Atopic dermatitis Back pain Bone fracture Chronic back pain Chronic cough Chronic ethmoidal sinusitis Chronic mastoiditis Chronic pain CPAP (continuous positive airway pressure) dependence Depression Diabetes DM type 2 (diabetes mellitus, type 2) DVT (deep venous thrombosis) GERD (gastroesophageal reflux disease) GERD (gastroesophageal reflux disease) Hx of lichen planus Hyperlipidemia Hypothyroidism Loose, teeth Migraine headache Morbid obesity Myalgia and myositis SIERRA (obstructive sleep apnea) Peripheral edema Peripheral neuropathy Pulmonary embolism Recurrent UTI Restless legs syndrome Rosacea Sarcoidosis Seasonal allergies Smoker Wears hearing aid in both ears Home Medications liraglutide 0.6 mg/0.1 mL (18 mg/3 mL) subcutaneous pen injector (Victoza 2-Kobe) 1.8 mg subcut DAILY diabetes 01/31/18 [History Last Taken 06/11/19] pantoprazole 40 mg tablet,delayed release 40 mg PO BID reflux 01/31/18 [History Last Taken 07/31/23 04:00] pramipexole 1 mg tablet 1 mg PO TID restless legs 01/31/18 [History Last Taken 07/13/23] citalopram 40 mg tablet 40 mg PO DAILY mental health #0 tabs 06/12/19 [Rx Last Taken 07/31/23 04:00] hydroxyzine pamoate 50 mg capsule 50 mg PO TID mental health ##0 06/12/19 [Rx Last Taken 07/31/23 04:00] albuterol sulfate 90 mcg/actuation aerosol inhaler (Ventolin HFA) 1 inh inhalation PRN PRN breathing 12/23/20 [History Last Taken Unknown] apixaban 5 mg tablet (Eliquis) 5 mg PO BID blood thinner 12/23/20 [History Last Taken 07/27/23] oxybutynin chloride 10 mg tablet,extended release 24 hr 10 mg PO DAILY bladder 12/23/20 [History Last Taken Unknown] pregabalin 100 mg capsule (Lyrica) 100 mg PO TID pain 12/23/20 [History Last Taken 07/13/23] aspirin 81 mg tablet,delayed release 81 mg PO DAILY heart health 06/16/23 [History Last Taken 07/27/23] clotrimazole-betamethasone 1 %-0.05 % lotion 1 applic topical Q12H 06/16/23 [Hi story Last Taken Unknown] cyclobenzaprine 10 mg tablet 10 mg PO TID pain 06/16/23 [History Last Taken 07/13/23] insulin lispro protamine-lispro 100 unit/mL (75-25) subcutaneous pen (Humalog Mix 75-25 KwikPen) 35 unit subcut BID diabetes 06/16/23 [History Last Taken Unknown] metronidazole 0.75 % (37.5 mg/5 gram) vaginal gel 1 appful vaginal .MAXI 06/16/23 [History Last Taken Unknown] oxycodone-acetaminophen 10 mg-325 mg tablet 1 tab PO Q8H pain 06/16/23 [History Last Taken 07/13/23] quetiapine 300 mg tablet 300 mg PO QHS mental health 06/16/23 [History Last Taken Unknown] polysaccharide iron complex 150 mg iron capsule (Ferrex) 150 mg PO DAILY 30 days #30 caps 06/18/23 [Rx Last Taken Unknown] rosuvastatin 20 mg tablet (Crestor) 20 mg PO DAILY #30 tabs 06/18/23 [Rx Last Taken Unknown] sucralfate 1 gram tablet 1 g PO TIDAC 30 days #90 tabs 06/20/23 [Rx Last Taken Unknown] lidocaine HCl 2 % mucosal solution (Lidocaine Viscous) 1 applic mucous membrane BID PRN pain #100 mL 08/01/23 [Rx Last Taken Unknown] empagliflozin 25 mg tablet (Jardiance) 25 mg PO DAILY 08/13/23 [History Last Taken Unknown] folic acid 1 mg tablet 1 mg PO BREAKFAST 08/13/23 [History Last Taken Unknown] oxcarbazepine 600 mg tablet (Trileptal) 600 mg PO BID 08/13/23 [History Last Taken Unknown] prazosin 1 mg capsule 1 mg PO QHS 08/13/23 [History Last Taken Unknown] Allergy/AdvReac Type Severity Reaction Status Date / Time levothyroxine Allergy Mild PT UNSURE Verified 08/13/23 19:15 OF REACTION tramadol HCl [From Ultram] AdvReac Vomiting Verified 08/13/23 19:15 Family History Father Diabetes Asthma Brother Asthma Unknown Asthma Arthritis Diabetes Heart disease Hypertension Thyroid disorder Surgical History History of cholecystectomy History of colonoscopy History of esophagogastroduodenoscopy (EGD) history of sinusplasty History of total hysterectomy History of tubal ligation Hx of cystoscopy lymph node removal Social History household members: significant other Smoking Status: Current every day smoker tobacco type: e-cigarettes and smokeless tobacco alcohol intake: never substance use type: does not use ROS ROS Narrative Review of systems: Constitutional: Patient denies fevers, chills or malaise. Eyes: Patient denies visual changes. ENT: Patient admits to difficulty swallowing which is chronic for her. She denies symptoms of GERD. Cardiovascular: Patient denies chest pain or palpitations. Respiratory: Patient denies shortness of breath or cough. Gastrointestinal: Patient admits to lower GI bleed with bright red blood per rectum with mild left-sided abdominal pain. Genitourinary: Patient denies urinary frequency, dysuria or hematuria. Musculoskeletal: Patient denies recent trauma or significant arthralgias/myalgias. Skin: Patient denies rash. Neurologic: Patient denies headache or focal neurologic weakness. She admits to several previous TIAs and has been worked up on multiple occasions for this. Endocrine: Patient denies polyuria, polydipsia or polyphagia. Allergic: Patient denies lip swelling, tongue swelling or urticaria. Psychiatric: Patient admits to severe anxiety and insomnia as noted above in HPI. 14 point review of systems otherwise negative except for positives noted above in HPI. Vital Signs Vital Signs Vital Signs: 08/13/23 19:15 08/13/23 21:15 08/13/23 23:24 Temperature 98.2 F Temperature Source Temporal Pulse Rate 108 H 88 93 Respiratory Rate 18 16 16 Blood Pressure 127/80 H 124/83 H 120/70 Blood Pressure Mean 95 96 86 Pulse Ox 95 99 98 Oxygen Delivery Method Room Air Room Air Room Air Weight Weight: 245 lb 8 oz Body Mass Index (BMI) 38.4 Physical Exam Const alert, oriented x3 and no apparent distress Constitutional Narrative: Patient is obese. General Appearance: cooperative HEENT normocephalic, head/scalp atraumatic, hearing grossly normal bilaterally, moist oral mucous membranes and oropharynx normal Eyes PERRL, EOMs intact bilaterally and conjunctivae normal Neck no lymphadenopathy, supple and no JVD Resp normal respiratory effort, no retractions, no use of accessory muscles and clear to auscultation bilaterally Cardio regular rate and regular rhythm GI normal to inspection, nondistended, normoactive bowel sounds, soft to palpation and non-distended GI Narrative: Mild left lower quadrant tenderness to palpation. Extremity normal to inspection and full ROM Skin Skin Narrative: Patient has no evidence of rash at this time Neuro oriented x3, CN's II-XII intact bilaterally, moves all extremities and no focal motor deficits Sensorium / Orientation: awake, alert, oriented to person, oriented to place and oriented to time Speech: speech normal Motor Exam: strength 5/5 throughout Psych affect normal Results Medical Records Data Attestation: I reviewed the patient's medical records Lab / Micro Data Attestation: I reviewed the patient's lab results. 08/13/23 21:10 08/13/23 21:10 Labs: Laboratory Results - last 24 hr 08/13/23 21:10: WBC 9.9, RBC 5.15, Hgb 12.0, Hct 39.8, MCV 77.3 L, MCH 23.3 L, MCHC 30.2 L, RDW Std Deviation 49.3 H, RDW Coeff of Karina 17.9 H, Plt Count 343, MPV 9.6, Immature Gran % (Auto) 0.900, Neut % (Auto) 54.4, Lymph % (Auto) 34.7, Nance % (Auto) 8.1, Eos % (Auto) 1.3, Baso % (Auto) 0.6, Absolute Neuts (auto) 5.4, Absolute Lymphs (auto) 3.42, Nucleated RBC % 0, Sodium 137, Potassium 4.3, Chloride 105, Carbon Dioxide 24.0, Anion Gap 8, BUN 10, Creatinine 0.95, Estim Creat Clear Calc 75.78, Est GFR (MDRD) Af Amer 84, Est GFR (MDRD) Non-Af 69, BUN/Creatinine Ratio 10.6, Glucose 301 H, Calcium 8.9, Total Bilirubin 0.20, AST 7 L, ALT 23, Alkaline Phosphatase 124 H, Total Protein 7.0, Albumin 2.7 L, Globulin 4.3 H, Albumin/Globulin Ratio 0.6 L Imagaing Radiology Impression Abdomen/Pelvis CT 08/13/23 21:45 IMPRESSION: 1. No acute abnormality. 2. Decreased attenuation of the liver which may represent fatty infiltration. Electronically Signed: Garth Hicks, at 22:47 EST , Assessment & Plan Assessment/Plan (1) Bright red blood per rectum: (2) History of diverticulosis: (3) Medication induced coagulopathy: (4) History of TIAs: (5) Anti-phospholipid antibody syndrome: PLAN: Plan 1. Lower GI bleed with bright red blood per rectum the setting of previously k nown diverticulosis - Admit to general medical floor under observation status. Recheck CBC in the a.m. and continue volume resuscitation. Type and screen blood and give transfusion for hemoglobin less than or equal to 7 g/dL. Finally, we will consult Dr. Hodge of the gastroenterology service to see this patient on rounds in the a.m. for further recommendations with help appreciated in advance. 2. Adverse drug reaction to combination of aspirin and Eliquis causing medication-induced coagulopathy precipitating #1 - Continue Eliquis at this time as the potential risks of thrombosis outweigh potential benefits at this time as patient is already stopped bleeding. Continue aspirin in a.m. if okay with GI. 3. Antiphospholipid antibody syndrome; with history of TIAs, DVTs, PEs and 2 miscarriages complicating #1 & #2 - Noted. Resume current treatment as per GI recommendations. She also states she was suspected to also have Sarcoidosis at one point in time - but she claims it has now been ruled out. 4. Recent surgery for bone spur on her Right great toe about one week ago with subsequent constipation likely triggering #1 - Patient needs to be started on an enhanced bowel regimen until she recovers from her surgery. 5. GERD; with chronic difficulty swallowing compounding #1- #4 - Stable. Continue oral Protonix. Patient wants to discuss possible stent placement with gastroenterology in the AM with further guidance regarding this issue also appreciated. 6. Hyperlipidemia - Continue statin. 7. Hypothyroidism - Resume Synthroid and check TSH. 8. Obesity; with BMI of 30.5 this admission plus obstructive sleep apnea - Weight loss will be recommended. She was encouraged to use CPAP but she is reluctant due to her severe insomnia since the of her boyfriend ~6 months ago. 9. Diabetes mellitus type 2; of unknown control - Keep n.p.o. at this time. Check hemoglobin A1c to evaluate quality of diabetic control. 10. DVT prophylaxis - Patient is on Eliquis which will be continued at this time. We will also start SCDs in case bleeding continues Eliquis needs to be stopped. Total time: Approximately 45 minutes. Charges/Coding Visit Charges OBSV E&M: 63029 Observ/hosp same date L1
[2023-08-13 23:41] VITALS: BP 120/70; PULSE 94; RESP 20; TEMP 36.7; O2SAT 95
[2023-08-14 00:53] VITALS: BMI 38.4
[2023-08-14 01:15] VITALS: BP 120/73; PULSE 88; RESP 16; TEMP 36.8; O2SAT 94
[2023-08-14] MEDS: Dextrose 5%/0.9% NaCl 1,000 ML 100 ML IV ×2 (01:41→11:02)
[2023-08-14] MEDS: 0.9% Saline Lock 10 ML Syringe IV (01:42)
[2023-08-14] MEDS: QUEtiapine 100 MG Tablet 300 MG PO (02:09)
[2023-08-14] MEDS: Pregabalin 50 MG Capsule 100 MG PO ×3 (02:10→14:54)
[2023-08-14] MEDS: Doxazosin 1 MG Tablet PO (02:10)
[2023-08-14] MEDS: APIXABAN 5 MG TABLET PO ×2 (02:10→08:10)
[2023-08-14] MEDS: Pantoprazole Sodium 40 MG Tablet PO ×2 (02:10→08:09)
[2023-08-14] MEDS: cycloBENZAPRine HCl 10 MG Tablet PO ×3 (02:10→14:54)
[2023-08-14] MEDS: OXcarbazepine 600 MG Tablet PO ×2 (02:11→08:10)
[2023-08-14] MEDS: Atorvastatin Calcium 40 MG Tablet PO (02:12)
[2023-08-14] MEDS: Pramipexole Di-HCl 1 MG Tablet PO ×2 (02:12→05:08)
[2023-08-14] MEDS: Insulin Human 75/25 Kwickpen 15 UNIT SC ×2 (02:13→11:01)
--- NOTE | 2023-08-14 02:19 | NURSING ---
Blood glucose level-306- using patient dexcom. insulin given unscheduled- per patient orders
[2023-08-14] MEDS: oxyCODONE 5 MG Tablet 10 MG PO ×2 (05:07→14:55)
[2023-08-14] MEDS: hydrOXYzine PAM 25 MG Capsule 50 MG PO ×2 (05:08→14:55)
[2023-08-14 06:00] VITALS: BMI 38.7
--- NOTE | 2023-08-14 07:25 | CON.PCM.GI_ITS ---
HPI Consult Data Date of Consult: 08/14/23 HPI Narrative Reason for Consultation: GI bleed HPI Narrative: NEIDA LEPE, is a42 F with a past medical history of antiphospholipid syndrome; with multiple previous TIAs, DVTs, PEs and 2 miscarriages on aspirin and Eliquis chronically, history of diverticulosis; with previous lower GI bleed . She also has a past medical history of hyperlipidemia, hypothyroidism, obesity; with a BMI of 38.5 this admission, obstructive sleep apnea; not using CPAP, chronic back pain, asthma, generalized anxiety, diabetes mellitus type 2; history of migraine headaches and recent surgery for a bone spur on her Right great toe by Dr. Tesha Levi of podiatry from the [facility] last week who presents to [facility] ER complaining of lower GI bleeding. Ms. Lepe reports her symptoms began approximately 4 days prior to admission when she developed blood in her stools last with intermittent bleeding since that time. She describes the blood as bright red and she denies significant abdominal pain associated with her bleeding but she does admit to constipation that seemed to be worse since her surgery as she is chronically on Oxycodone TID for years without a significant decrease in her bowel motility - until now. She also admits to severe insomnia that has persisted since the unexpected of her boyfriend about 6 months ago - for which she is in counselling - but she is still struggling to cope. Then earlier on 08/13/2023 she developed more vigorous bleeding and some mild discomfort on the Left side of her abdomen so she spoke with her sister who encouraged her to come in for further evaluation and treatment. She states she has had an EGD within the last month and she has previously underwent colonoscopy in June 2023. The patient then contacted Dr. Hodge this evening and was also instructed to come in for further evaluation and treatment. In the ER she was diagnosed with a lower GI bleed with BRBPR that is likely diverticular in origin precipitated by suspected adverse drug reaction to combination of aspirin and Eliquis with a hemoglobin of 12 g/dL present on admission (up from her baseline of 11.4 g/dL approximately 3 weeks ago) likely triggered by constipation after her recent podiatric surgery for bone spur of her right great toe with the ER physician having a conversation with myself and I recommended patient be continued on her Eliquis at this time because the risk of stopping these agents is greater then any potential benefit as her bleeding has already stopped at this time. She was then admitted to the general medical floor under observation status for a stay that is expected to be less than 48 hours. [facility] Medical History (Updated 08/13/23 @ 23:[address] Master Palomino, DO) Acute DVT (deep venous thrombosis) Anti-phospholipid antibody syndrome Anxiety Arthritis Asthma Atopic dermatitis Back pain Bone fracture Chronic back pain Chronic cough Chronic ethmoidal sinusitis Chronic mastoiditis Chronic pain CPAP (continuous positive airway pressure) dependence Depression Diabetes DM type 2 (diabetes mellitus, type 2) DVT (deep venous thrombosis) GERD (gastroesophageal reflux disease) GERD (gastroesophageal reflux disease) Hx of lichen planus Hyperlipidemia Hypothyroidism Loose, teeth Migraine headache Morbid obesity Myalgia and myositis SIERRA (obstructive sleep apnea) Peripheral edema Peripheral neuropathy Pulmonary embolism Recurrent UTI Restless legs syndrome Rosacea Sarcoidosis Seasonal allergies Smoker Wears hearing aid in both ears Home Medications liraglutide 0.6 mg/0.1 mL (18 mg/3 mL) subcutaneous pen injector (Victoza 2-Kobe) 1.8 mg subcut DAILY diabetes 01/31/18 [History Last Taken 06/11/19] pantoprazole 40 mg tablet,delayed release 40 mg PO BID reflux 01/31/18 [History Last Taken 07/31/23 04:00] pramipexole 1 mg tablet 1 mg PO TID restless legs 01/31/18 [History Last Taken 07/13/23] citalopram 40 mg tablet 40 mg PO DAILY mental health #0 tabs 06/12/19 [Rx Last Taken 07/31/23 04:00] hydroxyzine pamoate 50 mg capsule 50 mg PO TID mental health ##0 06/12/19 [Rx Last Taken 07/31/23 04:00] albuterol sulfate 90 mcg/actuation aerosol inhaler (Ventolin HFA) 1 inh inhalation PRN PRN breathing 12/23/20 [History Last Taken Unknown] apixaban 5 mg tablet (Eliquis) 5 mg PO BID blood thinner 12/23/20 [History Last Taken 07/27/23] oxybutynin chloride 10 mg tablet,extended release 24 hr 10 mg PO DAILY bladder 12/23/20 [History Last Taken Unknown] pregabalin 100 mg capsule (Lyrica) 100 mg PO TID pain 12/23/20 [History Last Taken 07/13/23] aspirin 81 mg tablet,delayed release 81 mg PO DAILY heart health 06/16/23 [History Last Taken 07/27/23] clotrimazole-betamethasone 1 %-0.05 % lotion 1 applic topical Q12H 06/16/23 [History Last Taken Unknown] cyclobenzaprine 10 mg tablet 10 mg PO TID pain 06/16/23 [History Last Taken 07/13/23] insulin lispro protamine-lispro 100 unit/mL (75-25) subcutaneous pen (Humalog Mix 75-25 KwikPen) 35 unit subcut BID diabetes 06/16/23 [History Last Taken Unknown] metronidazole 0.75 % (37.5 mg/5 gram) vaginal gel 1 appful vaginal .MAXI 06/16/23 [History Last Taken Unknown] oxycodone-acetaminophen 10 mg-325 mg tablet 1 tab PO Q8H pain 06/16/23 [History Last Taken 07/13/23] quetiapine 300 mg tablet 300 mg PO QHS mental health 06/16/23 [History Last Ta douglas Unknown] polysaccharide iron complex 150 mg iron capsule (Ferrex) 150 mg PO DAILY 30 days #30 caps 06/18/23 [Rx Last Taken Unknown] rosuvastatin 20 mg tablet (Crestor) 20 mg PO DAILY #30 tabs 06/18/23 [Rx Last Taken Unknown] sucralfate 1 gram tablet 1 g PO TIDAC 30 days #90 tabs 06/20/23 [Rx Last Taken Unknown] lidocaine HCl 2 % mucosal solution (Lidocaine Viscous) 1 applic mucous membrane BID PRN pain #100 mL 08/01/23 [Rx Last Taken Unknown] empagliflozin 25 mg tablet (Jardiance) 25 mg PO DAILY 08/13/23 [History Last Taken Unknown] folic acid 1 mg tablet 1 mg PO BREAKFAST 08/13/23 [History Last Taken Unknown] oxcarbazepine 600 mg tablet (Trileptal) 600 mg PO BID 08/13/23 [History Last T aken Unknown] prazosin 1 mg capsule 1 mg PO QHS 08/13/23 [History Last Taken Unknown] Allergy/AdvReac Type Severity Reaction Status Date / Time levothyroxine Allergy Mild PT UNSURE Verified 08/13/23 19:15 OF REACTION tramadol HCl [From Ultram] AdvReac Vomiting Verified 08/13/23 19:15 Family History Father Diabetes Asthma Brother Asthma Unknown Asthma Arthritis Diabetes Heart disease Hypertension Thyroid disorder Surgical History History of cholecystectomy History of colonoscopy History of esophagogastroduodenoscopy (EGD) history of sinusplasty History of total hysterectomy History of tubal ligation Hx of cystoscopy lymph node removal Social History household members: significant other Smoking Status: Current every day smoker tobacco type: e-cigarettes and smokeless tobacco alcohol intake: never substance use type: does not use ROS ROS Narrative Review of systems: Constitutional: Patient denies fevers, chills or malaise. Eyes: Patient denies visual changes. ENT: Patient admits to difficulty swallowing which is chronic for her. She denies symptoms of GERD. Cardiovascular: Patient denies chest pain or palpitations. Respiratory: Patient denies shortness of breath or cough. Gastrointestinal: Patient admits to lower GI bleed with bright red blood per rectum with mild left-sided abdominal pain. Genitourinary: Patient denies urinary frequency, dysuria or hematuria. Musculoskeletal: Patient denies recent trauma or significant arthralgias/myalgias. Skin: Patient denies rash. Neurologic: Patient denies headache or focal neurologic weakness. She admits to several previous TIAs and has been worked up on multiple occasions for this. Endocrine: Patient denies polyuria, polydipsia or polyphagia. Allergic: Patient denies lip swelling, tongue swelling or urticaria. Psychiatric: Patient admits to severe anxiety and insomnia as noted above in HPI. 14 point review of systems otherwise negative except for positives noted above in HPI. Physical Exam Const alert, oriented x3 and no apparent distress Constitutional Narrative: Patient is obese. General Appearance: cooperative HEENT normocephalic, head/scalp atraumatic, hearing grossly normal bilaterally, moist oral mucous membranes and oropharynx normal Eyes PERRL, EOMs intact bilaterally and conjunctivae normal Neck no lymphadenopathy, supple and no JVD Resp normal respiratory effort, no retractions, no use of accessory muscles and clear to auscultation bilaterally Cardio regular rate and regular rhythm GI normal to inspection, nondistended, normoactive bowel sounds, soft to palpation and non-distended GI Narrative: Mild left lower quadrant tenderness to palpation. Extremity normal to inspection and full ROM Skin Skin Narrative: Patient has no evidence of rash at this time Neuro oriented x3, CN's II-XII intact bilaterally, moves all extremities and no focal motor deficits Sensorium / Orientation: awake, alert, oriented to person, oriented to place and oriented to time Speech: speech normal Motor Exam: strength 5/5 throughout Psych affect normal Lab / Micro Data 08/14/23 07:54 08/14/23 07:54 Labs: Laboratory Results - last 24 hr 08/13/23 21:10: WBC 9.9, RBC 5.15, Hgb 12.0, Hct 39.8, MCV 77.3 L, MCH 23.3 L, MCHC 30.2 L, RDW Std Deviation 49.3 H, RDW Coeff of Karina 17.9 H, Plt Count 343, MPV 9.6, Immature Gran % (Auto) 0.900, Neut % (Auto) 54.4, Lymph % (Auto) 34.7, [place] % (Auto) 8.1, Eos % (Auto) 1.3, Baso % (Auto) 0.6, Absolute Neuts (auto) 5.4, Absolute Lymphs (auto) 3.42, Nucleated RBC % 0, Sodium 137, Potassium 4.3, Chloride 105, Carbon Dioxide 24.0, Anion Gap 8, BUN 10, Creatinine 0.95, Estim Creat Clear Calc 75.78, Est GFR (MDRD) Af Amer 84, Est GFR (MDRD) Non-Af 69, BUN/Creatinine Ratio 10.6, Glucose 301 H, Calcium 8.9, Total Bilirubin 0.20, AST 7 L, ALT 23, Alkaline Phosphatase 124 H, Total Protein 7.0, Albumin 2.7 L, Globulin 4.3 H, Albumin/Globulin Ratio 0.6 L 08/14/23 07:54: WBC 7.3, RBC 5.33, Hgb 12.4, Hct 41.5, MCV 77.9 L, MCH 23.3 L, MCHC 29.9 L, RDW Std Deviation 50.5 H, RDW Coeff of Karina 18.0 H, Plt Count 352, MPV 9.5, Immature Gran % (Auto) 1.000 H, Neut % (Auto) 54.8, Lymph % (Auto) 33.7, [place] % (Auto) 8.4, Eos % (Auto) 1.4, Baso % (Auto) 0.7, Absolute Neuts (auto) 4.0, Absolute Lymphs (auto) 2.46, Nucleated RBC % 0, Sodium 137, Potassium 4.0, Chloride 107, Carbon Dioxide 28.0, Anion Gap 2 L, BUN 8, Creatinine 0.80, Estim Creat Clear Calc 89.99, Est GFR (MDRD) Af Amer 102, Est GFR (MDRD) Non-Af 84, BUN/Creatinine Ratio 10.0, Glucose 239 H, Hemoglobin A1c 7.5 H, Calcium 8.4 L, Phosphorus 4.9, Total Bilirubin 0.30, AST 8 L, ALT 21, Alkaline Phosphatase 112, Total Protein 7.1, Albumin 2.7 L, Globulin 4.4 H, Albumin/Globulin Ratio 0.6 L, TSH 0.26 L, Blood Type B POSITIVE, Antibody Screen POSITIVE, Antibody Identification ANTI-S, Crossmatch See Detail 08/14/23 11:52: POC Glucose 370 H Imagaing Radiology Impression Abdomen/Pelvis CT 08/13/23 21:45 IMPRESSION: 1. No acute abnormality. 2. Decreased attenuation of the liver which may represent fatty infiltration. Electronically Signed: Garth Hicks DO at 22:47 EST Reading Location ID and State: [facility] / [place] Tel , Service support , Assessment & Plan Assessment/Plan (1) Bright red blood per rectum: (2) History of diverticulosis: (3) Medication induced coagulopathy: (4) History of TIAs: (5) Anti-phospholipid antibody syndrome: PLAN: Plan 42-year-old with past medical history of lichens planus esophagus with esophageal dysphagia, antiphospholipid syndrome status post multiple TIAs and history of DVT and PE on Eliquis and Plavix who presents with lower GI bleeding Lower GI bleed with bright red blood per rectum the setting of previously known diverticulosis - Admit to general medical floor under observation status. Recheck CBC in the a.m. and continue volume resuscitation. Type and screen blood and give transfusion for hemoglobin less than or equal to 7 g/dL. Adverse drug reaction to combination of aspirin and Eliquis causing medication- induced coagulopathy precipitating #1 - Continue Eliquis at this time as the potential risks of thrombosis outweigh potential benefits at this time as patient is already stopped bleeding. Continue aspirin in a.m. if okay with GI. Antiphospholipid antibody syndrome; with history of TIAs, DVTs, PEs and 2 miscarriages complicating #1 & #2 - Noted. Resume current treatment as per GI recommendations. She also states she was suspected to also have Sarcoidosis at one point in time - but she claims it has now been ruled out. Charges/Coding Visit Charges Inpatient E&M: 20264 Init Hosp L3
[2023-08-14] MEDS: Folic Acid 1 MG Tablet PO (08:08)
[2023-08-14] MEDS: Sucralfate 1 GM Tablet PO ×2 (08:08→11:03)
[2023-08-14] MEDS: Iron Polysaccharide Complex 150 MG CAPSULE PO (08:09)
[2023-08-14] MEDS: Tolterodine Tartrate 2 MG CAP.SA PO (08:11)
[2023-08-14] MEDS: Citalopram 40 MG TABLET PO (08:11)
[2023-08-14 08:13] LABS: Absolute Lymphocyte Count 2.46 X10^3/uL (0.83-4.51); Basophil# 0.05 X10^3/uL; Basophil% 0.7 % (0-1); Eosinophils% 1.4 % (0-5); Hematocrit 41.5 % (37-47); Hemoglobin 12.4 g/dL (12.0-15.0); Lymphocyte # 2.46 X10^3/ul (0.83-4.51); Lymphocyte % 33.7 % (19-41); Mean Corp Hgb Conc 29.9 g/dL (32-36); Mean Corpuscular Hgb 23.3 pg (27.0-32.0); Mean Corpuscular Volume 77.9 fL (81-99); Mean Platelet Vol. 9.5 fl (6.2-12.0); Monocyte# 0.61 X10^3/uL; Monocyte% 8.4 % (0-10); NRBC Flagged by Analyzer 0 % (0-5); Neutrophil # 4.01 X10^3/uL (2.7-7.7); Neutrophil % 54.8 % (47-70); Platelet Count 352 K/mm3 (150-450); RBC Distribution Width SD 50.5 fl (35.1-43.9); Red Blood Count 5.33 M/mm3 (4.2-5.4); White Blood Count 7.3 K/mm3 (4.4-11.0)
[2023-08-14 08:17] VITALS: PULSE 96; RESP 18; O2SAT 98
[2023-08-14] MEDS: Albuterol 2.5 MG/3 ML VIAL.NEB. INHALATION (08:17)
[2023-08-14 08:42] LABS: Hemoglobin A1c 7.5 % (3.8-5.6)
[2023-08-14 08:46] LABS: ALB/GLOB Ratio 0.6 RATIO (0.9-2.4); AST(SGOT) 8 U/L (15-37); Alanine Aminotransfer ALT/SGPT 21 U/L (13-56); Albumin, Serum 2.7 g/dL (3.2-5.0); Alkaline Phosphatase 112 U/L (45-117); Anion Gap 2 (5-15); BUN 8 mg/dL (7-18); Calcium,Total 8.4 mg/dL (8.5-10.1); Chloride 107 mmol/L (98-107); EST Glomerular Filtration Rate 84 mL/min (>60); Est Glom Filt Rate - Afr Amer 102 mL/min (>60); Estimated Creatinine Clearance 89.99 ml/min; Globulin 4.4 g/dL (2.2-4.2); Glucose 239 mg/dL (74-106); Phosphorus 4.9 mg/dL (2.5-4.9); Protein, Total 7.1 g/dL (6.4-8.2); Sodium Level 137 mmol/L (136-145); Thyroid Stim Hormone (TSH) 0.26 uIU/mL (0.358-3.74)
[2023-08-14 08:47] VITALS: BP 117/79; PULSE 92; RESP 18; TEMP 36.7; O2SAT 95
[2023-08-14 08:50] VITALS: RESP 18; O2SAT 95
[2023-08-14] MEDS: Clotrimazole/Betamethasone 1 Tube 1 APPLIC TOPICAL (11:02)
[2023-08-14 12:24] LABS: Bedside Glucose 370 mg/dL (74-106)
--- NOTE | 2023-08-14 15:23 | DS.PCM_ITS ---
Providers Date of Admission: 08/13/23 Date of Discharge: 08/14/23 Primary Care Physician: Dr. Albert Cheatham, DO Consultations 08/14/23 00:06 Consult: Gastroenterology Routine Consulting Provider: Friend,Amos Reason for Consult: Lower GI bleed with bright red blood per rectum. EMERGENT Consult: No MD Notified: Yes Date Notified: 08/14/23 Time Notified: 06:40 Method of Notification: Text Reason For Visit: LOWER GI BLEED WITH BRIGHT RED BLOOD PER RECTUM ON Diagnosis Discharge Diagnosis (1) Bright red blood per rectum: Status: Acute Code(s): K62.5 - Hemorrhage of anus and rectum (2) History of diverticulosis: Status: Acute Code(s): Z87.19 - Personal history of other diseases of the digestive system (3) Medication induced coagulopathy: Status: Acute Code(s): D68.9 - Coagulation defect, unspecified; T50.905A - Adverse effect of unspecified drugs, medicaments and biological substances, initial encounter (4) History of TIAs: Status: Acute Code(s): Z86.73 - Personal history of transient ischemic attack (TIA), and cerebral infar ction without residual deficits (5) Anti-phospholipid antibody syndrome: Status: Acute Code(s): D68.61 - Antiphospholipid syndrome Medications at Discharge Home Medications liraglutide 0.6 mg/0.1 mL (18 mg/3 mL) subcutaneous pen injector (Victoza 2-Kobe) 1.8 mg subcut DAILY diabetes 01/31/18 pantoprazole 40 mg tablet,delayed release 40 mg PO BID reflux 01/31/18 pramipexole 1 mg tablet 1 mg PO TID restless legs 01/31/18 citalopram 40 mg tablet 40 mg PO DAILY mental health #0 tabs 06/12/19 hydroxyzine pamoate 50 mg capsule 50 mg PO TID mental health ##0 06/12/19 albuterol sulfate 90 mcg/actuation aerosol inhaler (Ventolin HFA) 1 inh inhalation PRN PRN breathing 12/23/20 apixaban 5 mg tablet (Eliquis) 5 mg PO BID blood thinner 12/23/20 oxybutynin chloride 10 mg tablet,extended release 24 hr 10 mg PO DAILY bladder 12/23/20 pregabalin 100 mg capsule (Lyrica) 100 mg PO TID pain 12/23/20 aspirin 81 mg tablet,delayed release 81 mg PO DAILY heart health 06/16/23 clotrimazole-betamethasone 1 %-0.05 % lotion 1 applic topical Q12H 06/16/23 cyclobenzaprine 10 mg tablet 10 mg PO TID pain 06/16/23 insulin lispro protamine-lispro 100 unit/mL (75-25) subcutaneous pen (Humalog Mix 75-25 KwikPen) 35 unit subcut BID diabetes 06/16/23 metronidazole 0.75 % (37.5 mg/5 gram) vaginal gel 1 appful vaginal .MAXI 06/16/23 oxycodone-acetaminophen 10 mg-325 mg tablet 1 tab PO Q8H pain 06/16/23 quetiapine 300 mg tablet 300 mg PO QHS mental health 06/16/23 polysaccharide iron complex 150 mg iron capsule (Ferrex) 150 mg PO DAILY 30 days #30 caps 06/18/23 rosuvastatin 20 mg tablet (Crestor) 20 mg PO DAILY #30 tabs 06/18/23 sucralfate 1 gram tablet 1 g PO TIDAC 30 days #90 tabs 06/20/23 lidocaine HCl 2 % mucosal solution (Lidocaine Viscous) 1 applic mucous membrane BID PRN pain #100 mL 08/01/23 empagliflozin 25 mg tablet (Jardiance) 25 mg PO DAILY 08/13/23 folic acid 1 mg tablet 1 mg PO BREAKFAST 08/13/23 oxcarbazepine 600 mg tablet (Trileptal) 600 mg PO BID 08/13/23 prazosin 1 mg capsule 1 mg PO QHS 08/13/23 Hospital Course Operations None Procedures None Summary of Care Provided Minutes Spent on Discharge: 55 Hospital Course: Patient is a 42-year-old female with an extensive past medical history as outlined which includes antiphospholipid syndrome with repeated DVT and PE and TIAs as well as 2 miscarriages, on aspirin and Eliquis chronically and a history of diverticulosis. She was admitted through the ED on 01/11/2023 with a complaint of rectal bleeding. She said her symptoms started about 4 days prior to admission The bleeding was bright red. She had no abdominal pain. She did admit to constipation. Review of systems otherwise negative. She had had an EGD on July 31 and had also had colonoscopy in June 2023. She was found to have diverticulosis. Was getting to the ED hemoglobin was 12 with unknown baseline hemoglobin. She was admitted and managed for GI bleed likely due to diverticulosis and triggered by constipation. Hospital by the time she got here and did not recur. Gastroenterology reviewed patient's and per GI, there was no need for any acute intervention. Patient remained stable and bleeding did not recur. She was able to tolerate a diet. She was discharged home on 08/14/2023. Gastroenterology was apparently been discharged home as bleeding had not recurred and hemoglobin remained stable. She is follow-up with her primary care doctor within 1 to 2 weeks and with gastroenterology within 1 to 2 weeks also. Patient was continued on her Eliquis and aspirin due to her history of antiphospholipid syndrome with recurrent venous thromboembolism's. Patient seen and examined prior to discharge. She felt well and had no c omplaints. She had an uneventful night and review of symptoms otherwise negative. Labs and vitals reviewed. Home meds reviewed and reconciled. Physical Exam Const alert, oriented x3 and no apparent distress Constitutional Narrative: Patient is obese. General Appearance: cooperative HEENT normocephalic, head/scalp atraumatic, hearing grossly normal bilaterally, moist oral mucous membranes and oropharynx normal Eyes PERRL, EOMs intact bilaterally and conjunctivae normal Neck no lymphadenopathy, supple and no JVD Resp normal respiratory effort, no retractions, no use of accessory muscles and clear to auscultation bilaterally Cardio regular rate and regular rhythm GI normal to inspection, nondistended, normoactive bowel sounds, soft to palpation and non-distended GI Narrative: Mild left lower quadrant tenderness to palpation. Extremity normal to inspection and full ROM Skin Skin Narrative: Patient has no evidence of rash at this time Neuro oriented x3, CN's II-XII intact bilaterally, moves all extremities and no focal motor deficits Sensorium / Orientation: awake, alert, oriented to person, oriented to place and oriented to time Speech: speech normal Motor Exam: strength 5/5 throughout Psych affect normal Weight / BMI Weight Weight: 246 lb 14.684 oz Body Mass Index (BMI) 38.7 ABG / Lab / Microbiology Data 08/14/23 07:54 08/14/23 07:54 Laboratory: Laboratory Results - last 24 hr 08/13/23 21:10: WBC 9.9, RBC 5.15, Hgb 12.0, Hct 39.8, MCV 77.3 L, MCH 23.3 L, MCHC 30.2 L, RDW Std Deviation 49.3 H, RDW Coeff of Karina 17.9 H, Plt Count 343, MPV 9.6, Immature Gran % (Auto) 0.900, Neut % (Auto) 54.4, Lymph % (Auto) 34.7, [place] % (Auto) 8.1, Eos % (Auto) 1.3, Baso % (Auto) 0.6, Absolute Neuts (auto) 5.4, Absolute Lymphs (auto) 3.42, Nucleated RBC % 0, Sodium 137, Potassium 4.3, Chloride 105, Carbon Dioxide 24.0, Anion Gap 8, BUN 10, Creatinine 0.95, Estim Creat Clear Calc 75.78, Est GFR (MDRD) Af Amer 84, Est GFR (MDRD) Non-Af 69, BUN/Creatinine Ratio 10.6, Glucose 301 H, Calcium 8.9, Total Bilirubin 0.20, AST 7 L, ALT 23, Alkaline Phosphatase 124 H, Total Protein 7.0, Albumin 2.7 L, Globulin 4.3 H, Albumin/Globulin Ratio 0.6 L 08/14/23 07:54: WBC 7.3, RBC 5.33, Hgb 12.4, Hct 41.5, MCV 77.9 L, MCH 23.3 L, MCHC 29.9 L, RDW Std Deviation 50.5 H, RDW Coeff of Karina 18.0 H, Plt Count 352, MPV 9.5, Immature Gran % (Auto) 1.000 H, Neut % (Auto) 54.8, Lymph % (Auto) 33.7, [place] % (Auto) 8.4, Eos % (Auto) 1.4, Baso % (Auto) 0.7, Absolute Neuts (auto) 4.0, Absolute Lymphs (auto) 2.46, Nucleated RBC % 0, Sodium 137, Potassium 4.0, Chloride 107, Carbon Dioxide 28.0, Anion Gap 2 L, BUN 8, Creatinine 0.80, Estim Creat Clear Calc 89.99, Est GFR (MDRD) Af Amer 102, Est GFR (MDRD) Non-Af 84, BUN/Creatinine Ratio 10.0, Glucose 239 H, Hemoglobin A1c 7.5 H, Calcium 8.4 L, Phosphorus 4.9, Total Bilirubin 0.30, AST 8 L, ALT 21, Alkaline Phosphatase 112, Total Protein 7.1, Albumin 2.7 L, Globulin 4.4 H, Albumin/Globulin Ratio 0.6 L, TSH 0.26 L, Blood Type B POSITIVE, Antibody Screen POSITIVE, Antibody Identification ANTI-S, Crossmatch See Detail 08/14/23 11:52: POC Glucose 370 H Radiography Diagnostic Testing: Radiology Impression Abdomen/Pelvis CT 08/13/23 21:45 IMPRESSION: 1. No acute abnormality. 2. Decreased attenuation of the liver which may represent fatty infiltration. Electronically Signed: Garth Hicks DO at 22:47 EST , D/C Instructions Discharge Diet: Low fat / Low cholesterol Discharge Activity: Return to Normal Activity Weight Bearing Status: Weight bearing as tolerated Call your doctor if you observe: Fever of 101 or Higher, Shortness of breath and - (rectal bleeding) Meaningful Use Info Meaningful Use Diagnoses (Choose all that apply): None applicable Discharge Plan Admission Admit Date/Time: 08/13/23 23:59 Primary Reason for Your Visit: rectal bleeding Attending Provider: Susie Self Primary Care Provider: Albert Cheatham Consulting Providers: Amos Hodge; Master Palomino Instructions Patient Instructions: ED Lower GI Bleeding (Stable) Discharge Orders/Prescriptions Prescriptions: Continued Victoza 2-Kobe 0.6 mg/0.1 mL (18 mg/3 mL) pen injector 1.8 mg SC DAILY Eliquis 5 mg tablet 5 mg PO BID Patient Comments: WILL STOP 2 DAYS PRIOR pregabalin [Lyrica] 100 mg capsule 100 mg PO TID oxybutynin chloride 10 mg tablet extended release 24hr 10 mg PO DAILY albuterol sulfate [Ventolin HFA] 90 mcg/actuation HFA aerosol inhaler 1 inh INHALATION PRN PRN (Reason: breathing) pantoprazole 40 mg tablet,delayed release (DR/EC) 40 mg PO BID Patient Comments: acid reflex pramipexole 1 mg tablet 1 mg PO TID Patient Comments: muscle spasms citalopram 40 mg tablet 40 mg PO DAILY Qty: 0 0RF Rx Instructions: hold while taking ciprofloxacin hydroxyzine pamoate 50 mg capsule 50 mg PO TID Qty: 0 0RF Patient Comments: 1 capsule three times a day as needed Rx Instructions: hold while taking ciprofloxacin aspirin 81 mg tablet,delayed release (DR/EC) 81 mg PO DAILY Hold Instructions: Resume on 06/25/23. Patient Comments: TAKE 1 TABLET BY MOUTH ONCE DAILY cyclobenzaprine 10 mg tablet 10 mg PO TID Patient Comments: TAKE 1/2 TO 1 (ONE-HALF TO ONE) TABLET BY MOUTH THREE TIMES DAILY NEEDED clotrimazole-betamethasone 1-0.05 % lotion 1 applic TOPICAL Q12H Patient Comments: APPLY LOTION TOPICALLY TO AFFECTED AREA TWICE DAILY NEEDED insulin lispro protamin-lispro [Humalog Mix 75-25 KwikPen] 100 unit/mL (75-25) insulin pen 35 unit SUBCUT BID Patient Comments: INJECT 25-35 UNITS SUBCUTANEOUSLY TWICE DAILY IN THE MORNING AND IN THE EVENING; sliding scale metronidazole 0.75 % (37.5mg/5 gram) gel 1 appful VAGINAL .MAXI Patient Comments: INSERT 1 APPLICATORFUL VAGINALLY ONCE DAILY NEEDED FOR 5 DAYS oxycodone-acetaminophen 10-325 mg tablet 1 tab PO Q8H Patient Comments: TAKE 1 TABLET BY MOUTH THREE TIMES DAILY NEEDED CHRONIC INTRACTABLE PAIN quetiapine 300 mg tablet 300 mg PO QHS Patient Comments: TAKE 1 TABLET BY MOUTH ONCE DAILY AT BEDTIME rosuvastatin [Crestor] 20 mg tablet 20 mg PO DAILY Qty: 30 0RF Rx Instructions: TO REPLACE 10mg polysaccharide iron complex [Ferrex 150] 150 mg iron Capsule 150 mg PO DAILY 30 Days Qty: 30 0RF Jardiance 25 mg tablet 25 mg PO DAILY prazosin 1 mg capsule 1 mg PO QHS Patient Comments: TAKE 1 CAPSULE BY MOUTH ONCE DAILY AT BEDTIME oxcarbazepine [Trileptal] 600 mg tablet 600 mg PO BID folic acid 1 mg Tablet 1 mg PO BREAKFAST sucralfate 1 gram tablet 1 g PO TIDAC 30 Days Qty: 90 0RF lidocaine HCl [Lidocaine Viscous] 2 % solution 1 applic mucous membrane BID PRN (Reason: pain) Qty: 100 1RF Referrals / Follow Up: Albert Cheatham DO [Primary Care Provider] - Within 1 Week FriendAmos DO [Med Staff - Active Staff] - Within 1 Week Disposition Disposition (needs filled in before D/C Order can be placed): Home, Self Care Charges/Coding Visit Charges Inpatient E&M: 24698 Disch Hosp >30min
--- NOTE | 2023-08-14 15:32 | PHA.DC.MR.R ---
Pharmacy [facility] Med Reconciliation Pharmacy Service has performed discharge medication reconciliation for this patient. The patient's discharge medication list was reviewed for discrepancies and discrepancies were resolved. Medications at Discharge Home Medications liraglutide 0.6 mg/0.1 mL (18 mg/3 mL) subcutaneous pen injector (Victoza 2-Kobe) 1.8 mg subcut DAILY diabetes 01/31/18 pantoprazole 40 mg tablet,delayed release 40 mg PO BID reflux 01/31/18 pramipexole 1 mg tablet 1 mg PO TID restless legs 01/31/18 citalopram 40 mg tablet 40 mg PO DAILY mental health #0 tabs 06/12/19 hydroxyzine pamoate 50 mg capsule 50 mg PO TID mental health ##0 06/12/19 albuterol sulfate 90 mcg/actuation aerosol inhaler (Ventolin HFA) 1 inh inhalation PRN PRN breathing 12/23/20 apixaban 5 mg tablet (Eliquis) 5 mg PO BID blood thinner 12/23/20 oxybutynin chloride 10 mg tablet,extended release 24 hr 10 mg PO DAILY bladder 12/23/20 pregabalin 100 mg capsule (Lyrica) 100 mg PO TID pain 12/23/20 aspirin 81 mg tablet,delayed release 81 mg PO DAILY heart health 06/16/23 clotrimazole-betamethasone 1 %-0.05 % lotion 1 applic topical Q12H 06/16/23 cyclobenzaprine 10 mg tablet 10 mg PO TID pain 06/16/23 insulin lispro protamine-lispro 100 unit/mL (75-25) subcutaneous pen (Humalog Mix 75-25 KwikPen) 35 unit subcut BID diabetes 06/16/23 metronidazole 0.75 % (37.5 mg/5 gram) vaginal gel 1 appful vaginal .MAXI 06/16/23 oxycodone-acetaminophen 10 mg-325 mg tablet 1 tab PO Q8H pain 06/16/23 quetiapine 300 mg tablet 300 mg PO QHS mental health 06/16/23 polysaccharide iron complex 150 mg iron capsule (Ferrex) 150 mg PO DAILY 30 days #30 caps 06/18/23 rosuvastatin 20 mg tablet (Crestor) 20 mg PO DAILY #30 tabs 06/18/23 sucralfate 1 gram tablet 1 g PO TIDAC 30 days #90 tabs 10/11/23 lidocaine HCl 2 % mucosal solution (Lidocaine Viscous) 1 applic mucous membrane BID PRN pain #100 mL 08/01/23 empagliflozin 25 mg tablet (Jardiance) 25 mg PO DAILY 08/13/23 folic acid 1 mg tablet 1 mg PO BREAKFAST 08/13/23 oxcarbazepine 600 mg tablet (Trileptal) 600 mg PO BID 08/13/23 prazosin 1 mg capsule 1 mg PO QHS 08/13/23
== END 2023-08-14 16:49 | disposition home or self-care (01) ==
LOC: ED 23:37 → MS3 08-14 00:32
PROVIDERS: Admitting Provider Internal Medicine; Emergency Provider Emergency Medicine; PCP Family Medicine; Referring Provider Internal Medicine; Visit Provider Student in an Organized Health Care Education/Training Program
DX: K62.5 Hemorrhage of anus and rectum (principal); E11.42 Type 2 diabetes mellitus with diabetic polyneuropathy; E66.01 Morbid (severe) obesity due to excess calories; D68.9 Coagulation defect, unspecified; D68.61 Antiphospholipid syndrome; Z79.4 Long term (current) use of insulin; G89.29 Other chronic pain; G47.00 Insomnia, unspecified; G47.33 Obstructive sleep apnea (adult) (pediatric); E03.9 Hypothyroidism, unspecified; Z87.19 Personal history of other diseases of the digestive system; J45.909 Unspecified asthma, uncomplicated; F41.1 Generalized anxiety disorder; R13.10 Dysphagia, unspecified; E78.5 Hyperlipidemia, unspecified; Z79.01 Long term (current) use of anticoagulants; Z68.38 Body mass index [BMI] 38.0-38.9, adult; Z79.82 Long term (current) use of aspirin; Z86.711 Personal history of pulmonary embolism; Z86.718 Personal history of other venous thrombosis and embolism; Z86.73 Personal history of transient ischemic attack (TIA), and cerebral infarction without residual deficits; F17.220 Nicotine dependence, chewing tobacco, uncomplicated; F17.290 Nicotine dependence, other tobacco product, uncomplicated
CPT/HCPCS: 74177; 80053; 82962; 83036; 84100; 84443; 85025; 86850; 86870; 86900; 86901; 86902; 86920; 86922; 94640; 96360; 96361; 99221; 99284; 99406; Q9967; A4216; G0378

== ENCOUNTER 2023-08-30 10:28 | Day surgery (SDC) | payer MEDICAID, SELFPAY ==
[2023-08-30] VITALS (8 sets, daily range): BP systolic 112–130; BP diastolic 73–83; PULSE 83–94; RESP 14–18; TEMP 36.3–37; O2SAT 91–97; BMI 38.7
[2023-08-30] MEDS: Lactated Ringers 1,000 ML 15 ML IV (10:45)
[2023-08-30 11:15] LABS: Bedside Glucose 163 mg/dL (74-106)
--- NOTE | 2023-08-30 11:30 | EGD_PTH ---
PATIENT: NEIDA MANNING LOC: EN U#:[id number] AGE/SX: 42/F ROOM: RE08/30/[address]: Dr. Amos Hodge DO : 1980 BED: DIS: 08/30/2023 SPEC #: [id number] RECD: 08/31/23 09:41 STATUS: MEDHAT RECheko #: [id number] [place]: 08/30/23 11:[address]: Amos Hodge DEPT: SURGICAL PATHOLOGY RECD BY: Miryam Crawford ENTERED: 08/31/23 09:41 SP TYPE: EGD BIOPSY OT DR: Dr. Albert Cheatham DO Tissues: A - Esophageal mucous membrane B - Esophageal mucous membrane Procedures: Special Stain Group II Special Stain Group I Surgery Specimen Level IV GMS Stain (control) Alcian Blue/PAS (control) HEADER OPERATION: EGD, biopsy, injection of Kenalog PRE-OP DIAGNOSIS: Iron deficiency anemia, anemia TISSUE SUBMITTED: A - Distal esophagus biopsy, B - Mid esophagus biopsy MICROSCOPIC DIAGNOSIS A. Distal esophagus, biopsy: Fragments of gastroesophageal mucosa with chronic inflammation. Intestinal metaplasia (goblet cell metaplasia) not identified. See comment. B. Mid esophagus, biopsy: Fragments of squamous mucosa with extensive ulceration, acute and chronic inflammation and granulation tissue reaction. See comment. SJ:samir 09/04/2023 COMMENT A. Alcian blue/PAS stain with matched control is used in the evaluation of the specimen. B. Special stain for fungi is negative for organisms; matched control is appropriate. MICROSCOPIC DESCRIPTION Slides are reviewed. GROSS DESCRIPTION A - Received in fixative is one container labeled with the patient's name and designated distal esophagus biopsy. The specimen consists of multiple irregular fragments of light leslie soft tissue that in aggregate measure 2.0 x 0.5 x 0.1 cm. The specimen is totally submitted in one cassette. B - Received in fixative is one container labeled with the patient's name and designated mid esophagus biopsy. The specimen consists of multiple irregular fragments of light leslie soft tissue that in aggregate measure 1.5 x 0.3 x 0.1 cm. The specimen is totally submitted in one cassette. / ELYSSA:samir 08/31/2023 TC:2 CPT: 96058 x2, 02476, 38021
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
[2023-08-30] MEDS: Triamcinolone Acetonide 40 MG/ML Vial ×2 (12:09→12:11)
[2023-08-30] MEDS: 0.9% Normal Saline (Pres. free 10 ML Vial ×2 (12:10→12:12)
--- NOTE | 2023-08-30 12:39 | OP.EGD_ITS ---
Patient Name: Anne Marie Lepe Procedure Date: 08/30/2023 11:50 AM Date of : 1980 Age: 42 Procedure: Upper GI endoscopy Indications: Dysphagia Providers: Amos Hodge DO Referring MD: Amos Hodge DO Medicines: Monitored Anesthesia Care Patient Profile: This is a 42 year old female. Refer to note in patient chart for documentation of history and physical. Patient has symptoms of dysphagia with both liquids and solids. Complications: No immediate complications. Procedure: Pre-Anesthesia Assessment: - Prior to the procedure, a History and Physical was performed, and patient medications and allergies were reviewed. The patient is competent. The risks and benefits of the procedure and the sedation options and risks were discussed with the patient. All questions were answered and informed consent was obtained. Patient identification and proposed procedure were verified by the physician in the pre-procedure area. Mental Status Examination: alert and oriented. Airway Examination: normal oropharyngeal airway and neck mobility. Respiratory Examination: clear to auscultation. CV Examination: normal. Prophylactic Antibiotics: The patient does not require prophylactic antibiotics. Prior Anticoagulants: The patient has taken Eliquis (apixaban), last dose was 1 day prior to procedure. ASA Grade Assessment: III - A patient with severe systemic disease. After reviewing the risks and benefits, the patient was deemed in satisfactory condition to undergo the procedure. The anesthesia plan was to use monitored anesthesia care (MAC). Immediately prior to administration of medications, the patient was re-assessed for adequacy to receive sedatives. The heart rate, respiratory rate, oxygen saturations, blood pressure, adequacy of pulmonary ventilation, and response to care were monitored throughout the procedure. The physical status of the patient was re-assessed after the procedure. After obtaining informed consent, the endoscope was passed under direct vision. Throughout the procedure, the patient's blood pressure, pulse, and oxygen saturations were monitored continuously. The Endoscope was introduced through the mouth, and advanced to the second part of duodenum. The upper GI endoscopy was accomplished without difficulty. The patient tolerated the procedure well. Scope In: 12:08:34 PM Scope Out: 12:25:46 PM Total Procedure Duration Time 0 hours 17 minutes 12 seconds Findings: There were esophageal mucosal changes secondary to established long-segment Colin's disease present in the middle third of the esophagus and in the lower third of the esophagus. The maximum longitudinal extent of these mucosal changes was 10 cm in length. Mucosa was biopsied with a cold forceps for histology in a targeted manner at intervals of 1 cm in the middle third of the esophagus and in the lower third of the esophagus. A total of 2 specimen bottles were sent to pathology. Verification of patient identification for the specimen was done. Estimated blood loss was minimal. Four benign-appearing, intrinsic severe (stenosis; an endoscope cannot pass) stenoses were found 23 to 35 cm from the incisors. The stenoses were traversed after dilation. A TTS dilator was passed through the scope. Dilation with a 12-13.5-15 mm balloon dilator was performed to 14 mm. The dilation site was examined and showed moderate improvement in luminal narrowing. Area was successfully injected with 10 mL of triamcinolone (10 mg/mL) for drug delivery. Estimated blood loss was minimal. A small hiatal hernia was present. The second portion of the duodenum was normal. 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 Biopsied. - Benign-appearing esophageal stenoses. Dilated. Injected. - Small hiatal hernia. - Normal second portion of the duodenum. Recommendation: - Await pathology results. - Repeat upper endoscopy in 2 months for surveillance. -Swallowed budesonide twice a day -Protonix 40 mg twice a day - Continue present medications. Procedure Code(s): --- Professional --- 61576, Esophagogastroduodenoscopy, flexible, transoral; with transendoscopic balloon dilation of esophagus (less than 30 mm diameter) 54129, 59,51, Esophagogastroduodenoscopy, flexible, transoral; with biopsy, single or multiple 64826, 59, Esophagogastroduodenoscopy, flexible, transoral; with directed submucosal injection(s), any substance CPT copyright 2021 [employer]. All rights reserved. The codes documented in this report are preliminary and upon corporate training manager review may be revised to meet current compliance requirements. Amos Hodge DO 08/30/2023 12:39:35 PM This report has been signed electronically. Number of Addenda: 0 Note Initiated On: 08/30/2023 11:50 AM
--- NOTE | 2023-08-30 12:40 | OP.CCLET_ITS ---
08/30/2023 Albert Cheatham [address] [place] [address] Re : Upper GI endoscopy procedure for Anne Marie Lepe Dear Dr. Cheatham This procedure was performed on August. My impressions and recommendations are as follows: Impressions : - Esophageal mucosal changes secondary to established long-segment Colin's disease. Biopsied. - Benign-appearing esophageal stenoses. Dilated. Injected. - Small hiatal hernia. - Normal second portion of the duodenum. Recommendations : - Await pathology results. - Repeat upper endoscopy in 2 months for surveillance. -Swallowed budesonide twice a day -Protonix 40 mg twice a day - Continue present medications. My findings are described in the full procedure note, which is enclosed. If I can be of further assistance, please feel free to contact me at . Sincerely, Amos Friend, 08/30/2023 12:39:35 PM This report has been signed electronically.
== END 2023-08-30 13:33 | disposition home or self-care (01) ==
LOC: EN 10:29 → AC 10:30
PROVIDERS: PCP Family Medicine; Referring Provider Family Medicine; Visit Provider Internal Medicine Gastroenterology
PROC: 0DJ08ZZ Inspection of Upper Intestinal Tract, Via Natural or Artificial Opening Endoscopic (ICD-10-PCS; CPT 43235; principal; 2023-08-30 11:25)
DX: D50.0 Iron deficiency anemia secondary to blood loss (chronic) (principal); E11.42 Type 2 diabetes mellitus with diabetic polyneuropathy; Z79.4 Long term (current) use of insulin; K22.2 Esophageal obstruction; G89.29 Other chronic pain; M54.9 Dorsalgia, unspecified; R13.10 Dysphagia, unspecified; K22.70 Barrett's esophagus without dysplasia; K44.9 Diaphragmatic hernia without obstruction or gangrene; G47.33 Obstructive sleep apnea (adult) (pediatric); F41.9 Anxiety disorder, unspecified; F32.A Depression, unspecified; G25.81 Restless legs syndrome; Z79.01 Long term (current) use of anticoagulants; Z79.82 Long term (current) use of aspirin; Z79.899 Other long term (current) drug therapy; Z86.718 Personal history of other venous thrombosis and embolism; Z86.711 Personal history of pulmonary embolism; Z87.891 Personal history of nicotine dependence
CPT/HCPCS: 43249; 43239; 43236; 82962; 88305; 88312; 88313; J7120; J2405; J3490

== ENCOUNTER 2023-10-02 13:47 | Day surgery (SDC) | payer MEDICAID, SELFPAY ==
[2023-10-02] VITALS (9 sets, daily range): BP systolic 105–127; BP diastolic 67–82; PULSE 82–107; RESP 16–20; TEMP 36.2–36.5; O2SAT 88–96; BMI 38.6
[2023-10-02] MEDS: Lactated Ringers 1,000 ML 15 ML IV (14:15)
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
[2023-10-02 14:36] LABS: Bedside Glucose 165 mg/dL (74-106)
--- NOTE | 2023-10-02 14:45 | EGD_PTH ---
PATHOLOGY RESULTS PATIENT: NEIDA MANNING LOC: EN U#:[id number] AGE/SX: 42/F ROOM: RE10/02/[address]: Dr. Amos Hodge DO : 1980 BED: DIS: 10/02/2023 SPEC #: [id number] RECD: 10/02/23 16:00 STATUS: MEDHAT RECheko #: [id number] [place]: 10/02/23 14:[address]: Amos Hodge DEPT: SURGICAL PATHOLOGY RECD BY: Lis Adamson ENTERED: 10/03/23 08:49 SP TYPE: EGD BIOPSY OT DR: Dr. Albert Cheatham DO Tissues: Esophagus, NOS Procedures: Special Stain Group I Surgery Specimen Level IV GMS Stain (control) HEADER OPERATION: EGD, biopsy, dilatation PRE-OP DIAGNOSIS: Iron deficiency anemia TISSUE SUBMITTED: Random esophageal biopsy MICROSCOPIC DIAGNOSIS Esophagus, random biopsy: Abundant fibrinopurulent material Bacterial colonies Fungal organisms consistent with Lisa. Rare fragments of benign squamous mucosa with acute inflammation. See comment. AM:samir 10/04/2023 COMMENT GMS stain with matched control was used in the evaluation of this case. MICROSCOPIC DESCRIPTION Slides are reviewed. GROSS DESCRIPTION Received in fixative is one container labeled with the patient's name and designated random esophagus biopsy. The specimen consists of multiple irregular fragments of leslie soft tissue that in aggregate measure 2.5 x 2.0 x 0.3 cm. The specimen is totally submitted in one cassette. / SJ:samir 10/03/2023 TC:2 CPT: 51741, 10684
--- NOTE | 2023-10-02 15:27 | OP.EGD_ITS ---
Patient Name: Anne Marie Lepe Procedure Date: 10/02/2023 2:49 PM Date of : 1980 Age: 42 Procedure: Upper GI endoscopy Indications: Dysphagia Providers: Amos Hodge DO Medicines: Monitored Anesthesia Care Patient Profile: This is a 42 year old female. Refer to note in patient chart for documentation of history and physical. Patient has symptoms of dysphagia with both liquids and solids. Complications: No immediate complications. Procedure: Pre-Anesthesia Assessment: - Prior to the procedure, a History and Physical was performed, and patient medications and allergies were reviewed. The patient is competent. The risks and benefits of the procedure and the sedation options and risks were discussed with the patient. All questions were answered and informed consent was obtained. Patient identification and proposed procedure were verified by the physician in the pre-procedure area. Mental Status Examination: alert and oriented. Airway Examination: normal oropharyngeal airway and neck mobility. Respiratory Examination: clear to auscultation. CV Examination: normal. Prophylactic Antibiotics: The patient does not require prophylactic antibiotics. Prior Anticoagulants: The patient has taken no anticoagulant or antiplatelet agents. ASA Grade Assessment: III - A patient with severe systemic disease. After reviewing the risks and benefits, the patient was deemed in satisfactory condition to undergo the procedure. The anesthesia plan was to use monitored anesthesia care (MAC). Immediately prior to administration of medications, the patient was re-assessed for adequacy to receive sedatives. The heart rate, respiratory rate, oxygen saturations, blood pressure, adequacy of pulmonary ventilation, and response to care were monitored throughout the procedure. The physical status of the patient was re-assessed after the procedure. After obtaining informed consent, the endoscope was passed under direct vision. Throughout the procedure, the patient's blood pressure, pulse, and oxygen saturations were monitored continuously. The Endoscope was introduced through the mouth, and advanced to the second part of duodenum. The upper GI endoscopy was accomplished without difficulty. The patient tolerated the procedure well. Scope In: 2:59:18 PM Scope Out: 3:11:52 PM Total Procedure Duration Time 0 hours 12 minutes 34 seconds Findings: Patchy, white plaques were found in the upper third of the esophagus. Biopsies were taken with a cold forceps for histology. Verification of patient identification for the specimen was done. Estimated blood loss was minimal. Diffuse severe mucosal changes characterized by sloughing, a decreased vascular pattern and ulceration were found in the entire esophagus. Biopsies were taken with a cold forceps for histology. Verification of patient identification for the specimen was done. Estimated blood loss was minimal. Four benign-appearing, intrinsic severe stenoses were found 20 cm from the incisors. The stenoses were traversed after dilation. A TTS dilator was passed through the scope. Dilation with a 12-13.5-15 mm balloon dilator was performed to 15 mm. The dilation site was examined following endoscope reinsertion and showed complete resolution of luminal narrowing. Estimated blood loss was minimal. The entire examined stomach was normal. No gross lesions were noted in the duodenal bulb. Impression: - Esophageal plaques were found, consistent with candidiasis. Biopsied. - Decreased vascular pattern, ulcerated mucosa in the esophagus. Biopsied. - Benign-appearing esophageal stenoses. Dilated. - Normal stomach. - No gross lesions in the duodenal bulb. Recommendation: - Discharge patient to home. - Full liquid diet today. - Continue present medications. - Use Viscous Lidocaine at 2% 5 mL PO q 4 hrs for 3 days. - Nystatin suspension 200,000 units PO QID for 1 week. Procedure Code(s): --- Professional --- 66944, Esophagogastroduodenoscopy, flexible, transoral; with transendoscopic balloon dilation of esophagus (less than 30 mm diameter) 01717, 59,51, Esophagogastroduodenoscopy, flexible, transoral; with biopsy, single or multiple CPT copyright 2021 [employer]. All rights reserved. The codes documented in this report are preliminary and upon auditing coder review may be revised to meet current compliance requirements. Amos Hodge DO 10/02/2023 3:26:36 PM This report has been signed electronically. Number of Addenda: 0 Note Initiated On: 10/02/2023 2:49 PM
--- NOTE | 2023-10-02 15:27 | OP.CCLET_ITS ---
10/02/2023 Albert Cheatham [address] [facility] [place] [address] Re : Upper GI endoscopy procedure for Anne Marie Lepe Dear Dr. Cheatham This procedure was performed on Monday, October 02, 2023. My impressions and recommendations are as follows: Impressions : - Esophageal plaques were found, consistent with candidiasis. Biopsied. - Decreased vascular pattern, ulcerated mucosa in the esophagus. Biopsied. - Benign-appearing esophageal stenoses. Dilated. - Normal stomach. - No gross lesions in the duodenal bulb. Recommendations : - Discharge patient to home. - Full liquid diet today. - Continue present medications. - Use Viscous Lidocaine at 2% 5 mL PO q 4 hrs for 3 days. - Nystatin suspension 200,000 units PO QID for 1 week. My findings are described in the full procedure note, which is enclosed. If I can be of further assistance, please feel free to contact me at . Sincerely, Amos Hodge, 10/02/2023 3:26:36 PM This report has been signed electronically.
== END 2023-10-02 16:11 | disposition home or self-care (01) ==
LOC: EN 13:49 → AC 13:50
PROVIDERS: PCP Family Medicine; Referring Provider Family Medicine; Visit Provider Internal Medicine Gastroenterology
PROC: 0DJ08ZZ Inspection of Upper Intestinal Tract, Via Natural or Artificial Opening Endoscopic (ICD-10-PCS; CPT 43235; principal; 2023-10-02 14:40)
DX: D50.0 Iron deficiency anemia secondary to blood loss (chronic) (principal); E11.42 Type 2 diabetes mellitus with diabetic polyneuropathy; Z79.4 Long term (current) use of insulin; K22.2 Esophageal obstruction; R13.10 Dysphagia, unspecified; E78.5 Hyperlipidemia, unspecified; K22.10 Ulcer of esophagus without bleeding; G47.33 Obstructive sleep apnea (adult) (pediatric); F41.9 Anxiety disorder, unspecified; F32.A Depression, unspecified; G25.81 Restless legs syndrome; Z87.891 Personal history of nicotine dependence; Z79.82 Long term (current) use of aspirin; Z79.899 Other long term (current) drug therapy; Z79.01 Long term (current) use of anticoagulants; Z86.718 Personal history of other venous thrombosis and embolism
CPT/HCPCS: 43239; 43249; 82962; 88305; 88312; J7120; J2405

== ENCOUNTER 2023-10-30 10:16 | Emergency (ER) | payer MEDICAID, SELFPAY ==
[2023-10-30] VITALS (7 sets, daily range): BP systolic 101–130; BP diastolic 61–92; PULSE 86–114; RESP 14–21; TEMP 36.8–36.9; O2SAT 92–98; BMI 37.8
--- NOTE | 2023-10-30 10:44 | EKG12_ITS ---
Test Reason : NEURO Blood Pressure : / mmHG Vent. Rate : 093 BPM Atrial Rate : 093 BPM P-R Int : 142 ms QRS Dur : 084 ms QT Int : 388 ms P-R-T Axes : 022 034 016 degrees QTc Int : 482 ms Normal sinus rhythm Abnormal ECG Confirmed by PEMA CRABTREE MD ([id number]), primer expeditor and drier JEANIE DUARTE ([id number]) on 10/31/2023 9:06:54 AM Referred By: Confirmed By:PEMA CRABTREE MD
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
[2023-10-30 10:52] LABS: Bedside Glucose 311 mg/dL (74-106)
[2023-10-30 11:04] LABS: Absolute Lymphocyte Count 3.76 X10^3/uL (0.83-4.51); Absolute Neutrophil Count 6.2 X10^3/uL (2.0-7.7); Basophil# 0.08 X10^3/uL; Basophil% 0.7 % (0-1); Eosinophil# 0.09 X10^3/uL; Eosinophils% 0.8 % (0-5); Hematocrit 41.2 % (37-47); Hemoglobin 12.6 g/dL (12.0-15.0); Lymphocyte # 3.76 X10^3/ul (0.83-4.51); Lymphocyte % 33.8 % (19-41); Mean Corp Hgb Conc 30.6 g/dL (32-36); Mean Corpuscular Hgb 23.8 pg (27.0-32.0); Mean Corpuscular Volume 77.9 fL (81-99); Mean Platelet Vol. 10.2 fl (6.2-12.0); Monocyte# 0.92 X10^3/uL; Monocyte% 8.3 % (0-10); NRBC Flagged by Analyzer 0 % (0-5); Neutrophil # 6.17 X10^3/uL (2.7-7.7); Neutrophil % 55.5 % (47-70); Platelet Count 389 K/mm3 (150-450); RBC Distribution Width CV 15.4 % (11.6-14.6); RBC Distribution Width SD 42.5 fl (35.1-43.9); Red Blood Count 5.29 M/mm3 (4.2-5.4); White Blood Count 11.1 K/mm3 (4.4-11.0)
[2023-10-30 11:14] LABS: International Normalized Ratio 1.2; Prothrombin Time (Protime)PT. 14.8 SECONDS (11.7-14.9)
[2023-10-30 11:15] LABS: Partial Thromboplast Time 31.8 Seconds (24.1-36.2)
[2023-10-30 11:20] LABS: Anion Gap 11 (5-15); BUN 10 mg/dL (7-18); BUN/Creat Ratio 11.4 RATIO (10-20); Calcium,Total 8.5 mg/dL (8.5-10.1); Chloride 102 mmol/L (98-107); Creatinine, Serum 0.87 mg/dL (0.55-1.02); EST Glomerular Filtration Rate 76 mL/min (>60); Est Glom Filt Rate - Afr Amer 91 mL/min (>60); Estimated Creatinine Clearance 108.49 ml/min; Glucose 290 mg/dL (74-106); Potassium 3.6 mmol/L (3.5-5.1); Sodium Level 137 mmol/L (136-145); Troponin-I HS 6 pg/mL (3.0-54.0)
--- NOTE | 2023-10-30 11:32 | EDS_ITS ---
HPI <Christine Rothman RN - Last Filed: 10/30/23 13:31> History of Present Illness Chief Complaint: Neuro S/Sx Detail of Chief Complaint: Left-sided weakness Informant: patient Onset/Context/Timing Onset: Today (06) Context: Sudden Onset Timing: Continuous Current Severity: Mild Maximum Severity: Mild Worsened by: Nothing Relieved by: Nothing Associated Symptoms Associated Symptoms: Difficulty focusing with blurry vision, left-sided weakness Narrative Narrative: Patient presents to the ED with left arm and left leg weakness beginning at 8 AM this morning. Patient also reports left-sided face and head feel numb beginning yesterday at 6 AM. Patient also reports blurry vision beginning 10/27/2023. Also complains of nausea beginning yesterday. Patient reports history of TIA in which the symptoms feel similar. She states she had an MRI of her brain which she thinks was reported as normal. Patient also reports left jaw and right neck pain. Of note, patient currently on Eliquis for DVT. Patient also complains of intermittent epigastric/lower sternal chest pain. Patient has a history of Colin's esophagitis. Patient reports using a nicotine vape daily. Denies alcohol or recreational drug use. Patient's family history includes mother with CAD at age 67. No family history of stroke. Prior similar symptoms: Yes Recent Illness/Hospitalization: No PFSH <Christine Rothman RN - Last Filed: 10/30/23 13:31> [facility] Medical History Acute DVT (deep venous thrombosis) Anti-phospholipid antibody syndrome Anxiety Arthritis Asthma Atopic dermatitis Back pain Bone fracture Chronic back pain Chronic cough Chronic ethmoidal sinusitis Chronic mastoiditis Chronic pain COPD (chronic obstructive pulmonary disease) CPAP (continuous positive airway pressure) dependence Depression DM type 2 (diabetes mellitus, type 2) DVT (deep venous thrombosis) GERD (gastroesophageal reflux disease) GERD (gastroesophageal reflux disease) History of diverticulosis History of TIAs Hx of lichen planus Hyperlipidemia Hypothyroidism Insulin dependent diabetes mellitus Iron deficiency anemia Medication induced coagulopathy Migraine headache Morbid obesity Myalgia and myositis SIERRA (obstructive sleep apnea) Peripheral edema Peripheral neuropathy Pulmonary embolism Recurrent UTI Restless legs syndrome Rosacea Sarcoidosis Seasonal allergies Sepsis Vapes nicotine containing substance Wears dentures Wears hearing aid in both ears Home Medications liraglutide 0.6 mg/0.1 mL (18 mg/3 mL) subcutaneous pen injector (Victoza 2-Kobe) 1.8 mg subcut DAILY diabetes 01/31/18 [History Last Taken 06/11/19] pantoprazole 40 mg tablet,delayed release 40 mg PO BID reflux 01/31/18 [History Last Taken 10/02/23] pramipexole 1 mg tablet 1 mg PO TID restless legs 01/31/18 [History Last Taken 10/02/23] hydroxyzine pamoate 50 mg capsule 50 mg PO TID mental health ##0 06/12/19 [Rx Last Taken 10/02/23] albuterol sulfate 90 mcg/actuation aerosol inhaler (Ventolin HFA) 1 inh inhalation PRN PRN breathing 12/23/20 [History Last Taken Unknown] apixaban 5 mg tablet (Eliquis) 5 mg PO BID blood thinner 12/23/20 [History Last Taken 09/28/23] oxybutynin chloride 10 mg tablet,extended release 24 hr 10 mg PO DAILY bladder 12/23/20 [History Last Taken 10/02/23] pregabalin 100 mg capsule (Lyrica) 100 mg PO TID pain 12/23/20 [History Last Justin en 07/13/23] aspirin 81 mg tablet,delayed release 81 mg PO DAILY heart health 06/16/23 [History Last Taken 09/28/23] clotrimazole-betamethasone 1 %-0.05 % lotion 1 applic topical Q12H PRN skin irritation 06/16/23 [History Last Taken Unknown] cyclobenzaprine 10 mg tablet 10 mg PO TID pain 06/16/23 [History Last Taken 07/13/23] insulin lispro protamine-lispro 100 unit/mL (75-25) subcutaneous pen (Humalog Mix 75-25 KwikPen) 35 unit subcut BID diabetes 06/16/23 [History Last Taken Unknown] metronidazole 0.75 % (37.5 mg/5 gram) vaginal gel 1 appful vaginal PRN PRN vaginal dryness 06/16/23 [History Last Taken Unknown] oxycodone-acetaminophen 10 mg-325 mg tablet 1 tab PO Q8H PRN pain 06/16/23 [History Last Taken 07/13/23] quetiapine 300 mg tablet 300 mg PO QHS mental health 06/16/23 [History Last Taken Unknown] polysaccharide iron complex 150 mg iron capsule (Ferrex) 150 mg PO DAILY 30 days #30 caps 06/18/23 [Rx Last Taken 09/28/23] rosuvastatin 20 mg tablet (Crestor) 20 mg PO DAILY #30 tabs 06/18/23 [Rx Last Taken Unknown] lidocaine HCl 2 % mucosal solution (Lidocaine Viscous) 1 applic mucous membrane BID PRN pain #100 mL 08/01/23 [Rx Last Taken Unknown] empagliflozin 25 mg tablet (Jardiance) 25 mg PO DAILY 08/13/23 [History Last Taken Unknown] folic acid 1 mg tablet 1 mg PO BREAKFAST 08/13/23 [History Last Taken Unknown] oxcarbazepine 600 mg tablet (Trileptal) 600 mg PO BID 08/13/23 [History Last Taken 10/02/23] prazosin 1 mg capsule 1 mg PO QHS 08/13/23 [History Last Taken Unknown] citalopram 40 mg tablet 40 mg PO Q mental health 08/29/23 [History Last Taken Unknown] sucralfate 1 gram tablet 1 g PO TIDAC PRN stomach upset 08/29/23 [History Last Taken Unknown] lidocaine HCl 2 % mucosal solution (Lidocaine Viscous) 1 applic mucous membrane Q6H #100 mL 10/02/23 [Rx Last Taken Unknown] nystatin 100,000 unit/mL oral suspension 2 ml PO Q6H 7 days #56 mL 10/02/23 [Rx Last Taken Unknown] prednisone 10 mg tablet 10 mg PO .daily #30 tabs 10/02/23 [Rx Last Taken Unknown] Allergy/AdvReac Type Severity Reaction Status Date / Time levothyroxine Allergy Mild PT UNSURE Verified 10/30/23 10:17 OF REACTION tramadol HCl [From Ultram] AdvReac Vomiting Verified 10/30/23 10:17 Family History Father Diabetes Asthma Brother Asthma Unknown Asthma Arthritis Diabetes Heart disease Hypertension Thyroid disorder Surgical History History of cholecystectomy History of colonoscopy History of esophagogastroduodenoscopy (EGD) history of sinusplasty History of total hysterectomy History of tubal ligation Hx of cystoscopy lymph node removal Social History household members: significant other Smoking Status: Current every day smoker tobacco type: e-cigarettes alcohol intake: never substance use type: does not use ROS <Christine Rothman RN - Last Filed: 10/30/23 13:31> ROS ED Constitutional Constitutional ED: Denies chills, fever(s) or sweats Eyes Eyes: Reports blurry vision ENT ENT ED: Reports other Details: Sinus pressure for 2 weeks with green nasal drainage. Was on amoxicillin which she has finished that course. Denies improvement of symptoms. Cardiovascular Cardiovascular: Denies chest pain, palpitations or racing heartbeat Respiratory/Chest Respiratory/Chest: Denies cough or dyspnea Gastrointestinal Gastrointestinal: Reports nausea; Denies abdominal pain, constipation, diarrhea or vomiting Genitourinary Genitourinary ED: Denies dysuria, hematuria or urinary frequency Musculoskeletal Musculoskeletal: Reports arthralgias and myalgias Integumentary Denies rash Neurologic Neurologic: Reports paresthesias LUE and LLE Psychiatric Psychiatric: Reports anxiety Hematologic/Lymphatic Hematologic/Lymphatic: Reports systems reviewed and no addt'l complaints, except as documented EXAM <Christine Rothman RN - Last Filed: 10/30/23 13:31> Physical Exam Const Vital Signs: 10/30/23 10:17 10/30/23 10:55 10/30/23 11:14 Temperature 98.2 F Temperature Source Temporal Pulse Rate 114 H 96 Respiratory Rate 18 19 H Blood Pressure 130/92 H 118/82 H Blood Pressure Mean 104 94 Pulse Ox 98 92 Oxygen Delivery Method Room Air Room Air Room Air 10/30/23 11:30 10/30/23 12:00 10/30/23 12:30 Temperature Temperature Source Pulse Rate 86 99 103 H Respiratory Rate 15 14 17 Blood Pressure 129/83 H 113/77 101/61 Blood Pressure Mean 98 89 74 Pulse Ox 92 92 93 Oxygen Delivery Method Room Air Room Air Room Air Positive well nourished and well developed General Appearance ED: well developed and NAD HEENT Reports moist mucous membranes Eyes PERRL and EOMs intact bilaterally Neck no lymphadenopathy Chest Wall inspection of chest normal and palpation of chest normal Resp normal respiratory effort and clear to auscultation bilaterally Cardio regular rate, regular rhythm, S1 normal heart sound and S2 normal heart sound GI normal to inspection, nondistended, normoactive bowel sounds, non-tender and non-distended Palpation: soft Extremity normal to inspection Extremity Narrative: Mild bilateral extremity pedal edema. Patient reports she was prescribed furosemide approximately 1 week ago for lower extremity edema but has only taken twice. General Extremety ED: Yes edema General Extremity: edema Neuro oriented x3 Neuro Narrative: Patient reports decrease sensation to left face left arm and left leg. Sensorium / Orientation: alert Sensory Exam: sensory level loss detected Motor Exam: strength 5/5 throughout Psych mental status grossly normal Skin no rashes or lesions noted NIHSS NIHSS Initial: 1a Level of Consciousness: 0 1b LOC Questions (Score 2 if aphasic/stupor): 0 1c LOC Commands (Only score 1st attempt): 0 2 Best Gaze (If aphasic, use reflexive mvmts.): 0 3 Visual: 0 4 Facial Palsy: 0 5 Motor Arm Right (UN = amputation/fusion): 0 5 Motor Arm Left: 0 6 Motor Leg Right: 0 6 Motor Leg Left: 0 7 Limb ataxia (Only + if out of proportion): 0 8 Sensory (Aphasia/stupor=0 or 1, coma=2): 1 (Decreased sensation on left side) 9 Best Language: 0 10 Dysarthria (mute, coma=2, intubated=UN): 0 11 Extinction and Inattention (only scored if +): 0 Total Score: 1 <Dr. Royce Castro MD - Last Filed: 10/30/23 13:08> Physical Exam Const Vital Signs: 10/30/23 10:17 10/30/23 10:55 10/30/23 11:14 Temperature 98.2 F Temperature Source Temporal Pulse Rate 114 H 96 Respiratory Rate 18 19 H Blood Pressure 130/92 H 118/82 H Blood Pressure Mean 104 94 Pulse Ox 98 92 Oxygen Delivery Method Room Air Room Air Room Air 10/30/23 11:30 10/30/23 12:00 10/30/23 12:30 Temperature Temperature Source Pulse Rate 86 99 103 H Respiratory Rate 15 14 17 Blood Pressure 129/83 H 113/77 101/61 Blood Pressure Mean 98 89 74 Pulse Ox 92 92 93 Oxygen Delivery Method Room Air Room Air Room Air NIHSS NIHSS Initial: Total Score: 1 MDM <Christine Rothman RN - Last Filed: 10/30/23 13:31> MDM MDM Narrative Medical decision making narrative: 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 IV line initiated. Labwork obtained to evaluate for leukocytosis, anemia, and electrolyte derangement. CT brain ordered to evaluate for acute intracranial process including hemorrhage. EKG obtained to evaluate for cardiac arrhythmia/ischemia. History & Record Review Discussion w/independent historian: Patient and Significant other Lab Data Attestation: I reviewed the patient's lab results. Labs: Laboratory Results - last 24 hr 10/30/23 10/30/23 10:30 10:33 WBC 11.1 H RBC 5.29 Hgb 12.6 Hct 41.2 MCV 77.9 L MCH 23.8 L MCHC 30.6 L RDW Std Deviation 42.5 RDW Coeff of Karina 15.4 H Plt Count 389 MPV 10.2 Immature Gran % (Auto) 0.900 Neut % (Auto) 55.5 Lymph % (Auto) 33.8 [place] % (Auto) 8.3 Eos % (Auto) 0.8 Baso % (Auto) 0.7 Absolute Neuts (auto) 6.2 Absolute Lymphs (auto) 3.76 Nucleated RBC % 0 PT 14.8 INR 1.2 APTT 31.8 Sodium 137 Potassium 3.6 Chloride 102 Carbon Dioxide 24.0 Anion Gap 11 BUN 10 Creatinine 0.87 Estim Creat Clear Calc 108.49 Est GFR (MDRD) Af Amer 91 Est GFR (MDRD) Non-Af 76 BUN/Creatinine Ratio 11.4 Glucose 290 H Calcium 8.5 Troponin I High Sens 6 POC Glucose 311 H Radiography Chest X-Ray - ED: 1 View Diagnostic Testing: Clinical Impression(s) from Imaging Studies Brain CT 10/30/23 10:44 IMPRESSION: Stable examination. Electronically Signed: Santhosh Wilkins MD at 11:58 EST , Chest X-Ray 10/30/23 11:35 IMPRESSION: No acute abnormality is seen. Electronically Signed: Santhosh Wilkins MD at 12:27 EST , Differential Diagnosis Chest pain/SOB: ACS and aortic dissection Differential Diagnosis: Stroke Management Discussion w/another healthcare provider: Other (Dr. Castro, ED provider) Treatment and Re-Evaluation :: CBC shows white count 11.1 with 55.5% neutrophils and hemoglobin 12.6. Chemistries showed normal sodium of 137, potassium 3.6, BUN 10, creatinine 0.87, glucose 290, and high-sensitivity troponin negative at 6. [id number] glucose was elevated at 311. Patient reports she has continuous glucose monitoring in which over the past week or so her blood sugars have been ranging in the [address] is negative for hemorrhage or masses. Chest x-ray negative for infiltrates. Upon reevaluation patient sleeping in bed, awakens easily. Patient was able to ambulate in the hallway to the bathroom and returned to room with a steady gait. Discussed labs and imaging results with patient and fianc? which showed no acute process. Patient to be discharged home with follow-up with her family doctor in 3 to 5 days patient agreeable <Dr. 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 IV line initiated. Labwork obtained to evaluate for leukocytosis, anemia, and electrolyte derangement. CT brain ordered to evaluate for acute intracranial process including hemorrhage. EKG obtained to evaluate for cardiac arrhythmia/ischemia. I have personally performed a face to face assessment of the patient and have reviewed the GHULAM Note. I performed a substantive portion of the visit including all aspects of the following. My kowalski findings include: History is [42-year-old female extensive past medical history presents with left-sided facial paresthesia and reported extremity weakness. No recent illness. Also states she just does not feel well.] Exam is [well-appearing 42-year-old female. Vital signs are stable. She is afebrile. She does not look septic or toxic. She is in no acute distress. Her pulse ox is 98% on room air no hypoxia. H EENT exam unremarkable. No facial droop. Tongue midline. Normal speech. Pupils are round reactive light. She can open close either eye. Neck nontender. Lungs clear. Heart regular rhythm no murmur rate about 100. Chest wall and ribs nontender. Abdomen soft nontender. Moving all 4 extremities. Normal cooler operator strength. Normal dorsi plantarflexion. Limited effort. Neurologic patient is awake and alert. Answering questions following commands. NIH score is a 0 to at most 1 with subjective decrease sensation in her face.] Medical Decision Making [patient undergo a stroke workup. In June she had both a MRI thank you and CTA of her brain which were unremarkable. If her workup today is unremarkable including labs and a CAT scan of her brain she will be reevaluated and discharged home for further outpatient evaluation.] Other additions or changes: [None] Lab Data Lab results narrative: CBC shows a white count of 11. H&H 12 and 41. Platelets 389. PT and INR are 14 and 1. PTT of 31. Electrolytes show a sodium of 137 gap of 11. Normal BUN and creatinine. Glucose of 290. Troponin of 6. Chest x-ray unremarkable. CT of her brain is read by the radiologist shows no acute abnormality. Labs: Laboratory Results - last 24 hr 10/30/23 10/30/23 10:30 10:33 WBC 11.1 H RBC 5.29 Hgb 12.6 Hct 41.2 MCV 77.9 L MCH 23.8 L MCHC 30.6 L RDW Std Deviation 42.5 RDW Coeff of Karnia 15.4 H Plt Count 389 MPV 10.2 Immature Gran % (Auto) 0.900 Neut % (Auto) 55.5 Lymph % (Auto) 33.8 [place] % (Auto) 8.3 Eos % (Auto) 0.8 Baso % (Auto) 0.7 Absolute Neuts (auto) 6.2 Absolute Lymphs (auto) 3.76 Nucleated RBC % 0 PT 14.8 INR 1.2 APTT 31.8 Sodium 137 Potassium 3.6 Chloride 102 Carbon Dioxide 24.0 Anion Gap 11 BUN 10 Creatinine 0.87 Estim Creat Clear Calc 108.49 Est GFR (MDRD) Af Amer 91 Est GFR (MDRD) Non-Af 76 BUN/Creatinine Ratio 11.4 Glucose 290 H Calcium 8.5 Troponin I High Sens 6 POC Glucose 311 H Radiography Chest X-Ray - ED: Read by ED Physician, Read by Radiologist, Unchanged, Heart, Lungs, Mediastinum, Bony Structures, No Acute Disease and Chronic Changes Diagnostic Testing: Clinical Impression(s) from Imaging Studies Brain CT 10/30/23 10:44 IMPRESSION: Stable examination. Electronically Signed: Santhosh Wilkins MD at 11:58 EST , Chest X-Ray 10/30/23 11:35 IMPRESSION: No acute abnormality is seen. Electronically Signed: Santhosh Wilkins MD at 12:27 EST , Chest x-ray, portable, single view interpreted by myself and radiologist shows no acute abnormality. Rhythm Strip Rhythm Strip: Sinus Rhythm Rate: 93 Ectopy: None EKG Initial EKG: Attestation: I personally reviewed and interpreted this EKG as follows: Interpretation: Sinus Rhythm and No Acute Injury Pattern Comments: Normal sinus rhythm rate 93 no acute signs of PR or ischemia. Discharge Plan Triage Chief Complaint: Neuro S/Sx ED Provider: Royce Castro Dx/Rx/DC Orders Clinical Impression: Paresthesia, Depression, DM type 2 (diabetes mellitus, type 2) Instructions: ED Paraesthesias Prescriptions: No Action Victoza 2-Kobe 0.6 mg/0.1 mL (18 mg/3 mL) pen injector 1.8 mg SC DAILY Eliquis 5 mg tablet 5 mg PO BID Patient Comments: WILL STOP 2 DAYS PRIOR pregabalin [Lyrica] 100 mg capsule 100 mg PO TID oxybutynin chloride 10 mg tablet extended release 24hr 10 mg PO DAILY albuterol sulfate [Ventolin HFA] 90 mcg/actuation HFA aerosol inhaler 1 inh INHALATION PRN PRN (Reason: breathing) pantoprazole 40 mg tablet,delayed release (DR/EC) 40 mg PO BID Patient Comments: acid reflex pramipexole 1 mg tablet 1 mg PO TID Patient Comments: muscle spasms hydroxyzine pamoate 50 mg capsule 50 mg PO TID Qty: 0 0RF Patient Comments: 1 capsule three times a day as needed Rx Instructions: hold while taking ciprofloxacin aspirin 81 mg tablet,delayed release (DR/EC) 81 mg PO DAILY Hold Instructions: Resume on 06/25/23. Patient Comments: STOPPING 2 DAYS PRIOR cyclobenzaprine 10 mg tablet 10 mg PO TID Patient Comments: TAKE 1/2 TO 1 (ONE-HALF TO ONE) TABLET BY MOUTH THREE TIMES DAILY NEEDED clotrimazole-betamethasone 1-0.05 % lotion 1 applic TOPICAL Q12H PRN (Reason: skin irritation) Patient Comments: APPLY LOTION TOPICALLY TO AFFECTED AREA TWICE DAILY NEEDED insulin lispro protamin-lispro [Humalog Mix 75-25 KwikPen] 100 unit/mL (75-25) insulin pen 35 unit SUBCUT BID Patient Comments: INJECT 25-35 UNITS SUBCUTANEOUSLY TWICE DAILY IN THE MORNING AND IN THE EVENING; sliding scale metronidazole 0.75 % (37.5mg/5 gram) gel 1 appful VAGINAL PRN PRN (Reason: vaginal dryness) Patient Comments: INSERT 1 APPLICATORFUL VAGINALLY ONCE DAILY NEEDED FOR 5 DAYS oxycodone-acetaminophen 10-325 mg tablet 1 tab PO Q8H PRN (Reason: pain) Patient Comments: TAKE 1 TABLET BY MOUTH THREE TIMES DAILY NEEDED CHRONIC INTRACTABLE PAIN quetiapine 300 mg tablet 300 mg PO QHS Patient Comments: TAKE 1 TABLET BY MOUTH ONCE DAILY AT BEDTIME rosuvastatin [Crestor] 20 mg tablet 20 mg PO DAILY Qty: 30 0RF Rx Instructions: TO REPLACE 10mg polysaccharide iron complex [Ferrex 150] 150 mg iron Capsule 150 mg PO DAILY 30 Days Qty: 30 0RF Patient Comments: STOPPING 09/27 Jardiance 25 mg tablet 25 mg PO DAILY prazosin 1 mg capsule 1 mg PO QHS Patient Comments: TAKE 1 CAPSULE BY MOUTH ONCE DAILY AT BEDTIME oxcarbazepine [Trileptal] 600 mg tablet 600 mg PO BID folic acid 1 mg Tablet 1 mg PO BREAKFAST citalopram 40 mg tablet 40 mg PO QHS Rx Instructions: hold while taking ciprofloxacin sucralfate 1 gram tablet 1 g PO TIDAC PRN (Reason: stomach upset) nystatin 100,000 unit/mL suspension 2 ml PO Q6H 7 Days Qty: 56 0RF prednisone 10 mg tablet 10 mg PO .daily Qty: 30 0RF lidocaine HCl [Lidocaine Viscous] 2 % solution 1 applic mucous membrane Q6H Qty: 100 0RF lidocaine HCl [Lidocaine Viscous] 2 % solution 1 applic mucous membrane BID PRN (Reason: pain) Qty: 100 1RF Primary Care Provider: Albert Cheatham Referrals: Albert Cheatham DO [Primary Care Provider] - 3-5 Days Activity Restrictions/Additional Instructions: Your labs, EKG, CAT scan and chest x-ray today looked good. You had an MRI and a CTA of your brain and neck done in June both of those were fine. Outpatient follow-up with your primary care physician next several days. Disposition Disposition: Home, Self Care
--- NOTE | 2023-10-30 11:35 | RAD_ITS ---
STUDY: X-RAY CHEST REASON FOR EXAM: Female, 42 years old. Neuro deficit, acute, stroke suspected TECHNIQUE: Single AP portable view of the chest. COMPARISON: Comparison is made with prior study June 16, 2023. FINDINGS: EKG electrodes are seen. Radiopacities are once again seen overlying the right lateral abdominal wall. Stable mild elevation of the right hemidiaphragm. The lungs are clear. There is no demonstrated pleural abnormality. Normal size heart. Normal mediastinum and khoi. Normal visualized pulmonary arteries. Normal visualized aortic arch and descending thoracic aorta. Normal visualized thoracic spine. Normal visualized ribs, clavicles, and shoulders. There is no demonstrated abnormality of the visualized soft tissue structures of the upper abdomen. RAD/Chest 1 View IMPRESSION: No acute abnormality is seen. Electronically Signed: Santhosh Wilkins MD at 12:27 [facility] ,
== END 2023-10-30 13:46 | disposition home or self-care (01) ==
PROVIDERS: Emergency Provider Emergency Medicine; PCP Family Medicine; Visit Provider Emergency Medicine
DX: R20.2 Paresthesia of skin (principal); J44.9 Chronic obstructive pulmonary disease, unspecified; E11.42 Type 2 diabetes mellitus with diabetic polyneuropathy; R53.1 Weakness; G47.33 Obstructive sleep apnea (adult) (pediatric); F17.290 Nicotine dependence, other tobacco product, uncomplicated; Z86.73 Personal history of transient ischemic attack (TIA), and cerebral infarction without residual deficits; Z86.718 Personal history of other venous thrombosis and embolism
CPT/HCPCS: 70450; 71045; 80048; 82962; 84484; 85025; 85610; 85730; 93005; 99284

== ENCOUNTER → 2024-02-18 | Outpatient (CLI) | payer MEDICAID, SELFPAY | END | disposition home or self-care (01) | LOC: SL 19:51 | PROVIDERS: PCP Family Medicine; Referring Provider Family Medicine; Visit Provider Family Medicine | DX: G47.33 Obstructive sleep apnea (adult) (pediatric) (principal) | CPT/HCPCS: 95810 ==

== ENCOUNTER → 2024-02-22 | Outpatient (CLI) | payer MEDICAID, SELFPAY | END | disposition home or self-care (01) | LOC: SL 20:07 | PROVIDERS: PCP Family Medicine; Visit Provider Family Medicine | DX: G47.33 Obstructive sleep apnea (adult) (pediatric) (principal) | CPT/HCPCS: 95811 ==

== ENCOUNTER 2024-03-03 02:04 | Emergency (ER) | payer MEDICAID, SELFPAY ==
[2024-03-03 02:05] VITALS: BP 123/78; PULSE 91; RESP 16; TEMP 36.5; O2SAT 93; BMI 37.6
--- NOTE | 2024-03-03 02:22 | CT_ITS ---
INDICATION: headache EXAMINATION: CT BRAIN - CT Head or Brain W/O Contrast Injection TECHNIQUE: Multiple axial images were obtained of the head without intravenous contrast. The protocol utilizes one or more of the following dose reduction techniques: automated exposure control, adjustment of mA and/or kV according to patient size,and/or use of iterative reconstruction technique. IV Contrast dosage and agent: None. RADIATION DOSAGE (If Supplied By Facility): CTDIvol = ( 44.99 ) mGy, DLP = ( 829.85 ) mGycm COMPARISON: Reported CT head 10/30/2023, images are not available. FINDINGS: BRAIN: No acute bleed. No edema. Ring-white matter differentiation is maintained. VENTRICLES AND SULCI: Not dilated. EXTRA-AXIAL: No hemorrhage, fluid collection, or mass. CALVARIUM / SKULL BASE: Unremarkable. Metallic foreign body extends into the left temporal/occipital bone presumably from prior injury. FACE/SINUSES: Mastoid air cells on the left are opacified, similar to the prior report. Mucosal thickening in the sphenoid sinuses and maxillary sinuses. SOFT TISSUES: Unremarkable. CT/Brain/Head without Contrast IMPRESSION: No acute intracranial abnormality. Left mastoid disease. Electronically Signed: Sol Combs MD at 4:29 EDT ,
[2024-03-03] MEDS: 0.9% Normal Saline (1000mL) 1,000 ML 999 ML IV (02:59)
[2024-03-03] MEDS: Ondansetron 4 MG/2 ML Vial IV (03:00)
[2024-03-03 03:18] LABS: Absolute Lymphocyte Count 3.67 X10^3/uL (0.83-4.51); Absolute Neutrophil Count 3.6 X10^3/uL (2.0-7.7); Basophil# 0.05 X10^3/uL; Basophil% 0.6 % (0-1); Eosinophils% 2.4 % (0-5); Hematocrit 35.4 % (37-47); Hemoglobin 11.1 g/dL (12.0-15.0); Lymphocyte # 3.67 X10^3/ul (0.83-4.51); Lymphocyte % 44.6 % (19-41); Mean Corp Hgb Conc 31.4 g/dL (32-36); Mean Corpuscular Hgb 24.8 pg (27.0-32.0); Mean Platelet Vol. 9.8 fl (6.2-12.0); Monocyte# 0.64 X10^3/uL; Monocyte% 7.8 % (0-10); NRBC Flagged by Analyzer 0 % (0-5); Neutrophil # 3.64 X10^3/uL (2.7-7.7); Neutrophil % 44.2 % (47-70); Platelet Count 322 K/mm3 (150-450); RBC Distribution Width CV 15.7 % (11.6-14.6); RBC Distribution Width SD 44.6 fl (35.1-43.9); Red Blood Count 4.48 M/mm3 (4.2-5.4); White Blood Count 8.2 K/mm3 (4.4-11.0)
[2024-03-03 03:46] LABS: Anion Gap 7 (5-15); BUN 11 mg/dL (7-18); BUN/Creat Ratio 15.4 RATIO (10-20); Calcium,Total 8.7 mg/dL (8.5-10.1); Chloride 106 mmol/L (98-107); Creatinine, Serum 0.71 mg/dL (0.55-1.02); EST Glomerular Filtration Rate 96 mL/min (>60); Est Glom Filt Rate - Afr Amer 116 mL/min (>60); Estimated Creatinine Clearance 131.24 ml/min; Glucose 146 mg/dL (74-106); Magnesium 2.2 mg/dL (1.6-2.6); Potassium 3.7 mmol/L (3.5-5.1); Sodium Level 139 mmol/L (136-145)
[2024-03-03 04:05] VITALS: BP 109/64; PULSE 77; RESP 16; O2SAT 90
--- NOTE | 2024-03-03 04:33 | EX.ED.DYSGE1 ---
HPI History of Present Illness Chief Complaint: General Illness Informant: patient and spouse/S.O. Narrative Narrative: Patient is a 43-year-old female with past medical history of type 2 diabetes hypothyroidism previous DVT and PE currently on Eliquis. She states she has had multiple weeks of sinus congestion and pressure and is currently on Augmentin. She reports she has been taking the medication for a few days but despite this she does feel generally weak and tired and foggy. 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 Wears hearing aid in both ears Hypothyroidism Chronic pain GERD (gastroesophageal reflux disease) Hx of lichen planus Chronic cough CPAP (continuous positive airway pressure) dependence Pulmonary embolism DVT (deep venous thrombosis) Migraine headache Back pain Recurrent UTI Bone fracture Arthritis Seasonal allergies Chronic ethmoidal sinusitis Depression Rosacea Anxiety Morbid obesity Atopic dermatitis Chronic mastoiditis Myalgia and myositis Peripheral edema SIERRA (obstructive sleep apnea) Restless legs syndrome Chronic back pain Acute DVT (deep venous thrombosis) Hyperlipidemia Sarcoidosis Peripheral neuropathy DM type 2 (diabetes mellitus, type 2) GERD (gastroesophageal reflux disease) Asthma Home Medications ?Medication ?Instructions ?Recorded ?Last Taken ?Type liraglutide 0.6 mg/0.1 mL (18 mg/3 1.8 mg subcut DAILY diabetes 01/31/18 06/11/19 History mL) subcutaneous pen injector (Victoza 2-Kobe) pantoprazole 40 mg tablet,delayed 40 mg PO BID reflux 01/31/18 10/02/23 History release pramipexole 1 mg tablet 1 mg PO TID restless legs 01/31/18 10/02/23 History hydroxyzine pamoate 50 mg capsule 50 mg PO TID mental health ##0 06/12/19 10/02/23 Rx albuterol sulfate 90 mcg/actuation 1 inh inhalation PRN PRN breathing 12/23/20 Unknown History aerosol inhaler (Ventolin HFA) apixaban 5 mg tablet (Eliquis) 5 mg PO BID blood thinner 12/23/20 09/28/23 History oxybutynin chloride 10 mg 10 mg PO DAILY bladder 12/23/20 10/02/23 History tablet,extended release 24 hr pregabalin 100 mg capsule (Lyrica) 100 mg PO TID pain 12/23/20 07/13/23 History aspirin 81 mg tablet,delayed 81 mg PO DAILY heart health 06/16/23 09/28/23 History release clotrimazole-betamethasone 1 1 applic topical Q12H PRN skin 06/16/23 Unknown History %-0.05 % lotion irritation cyclobenzaprine 10 mg tablet 10 mg PO TID pain 06/16/23 07/13/23 History insulin lispro protamine-lispro 35 unit subcut BID diabetes 06/16/23 Unknown History 100 unit/mL (75-25) subcutaneous pen (Humalog Mix 75-25 KwikPen) metronidazole 0.75 % (37.5 mg/5 1 appful vaginal PRN PRN vaginal 06/16/23 Unknown History gram) vaginal gel dryness oxycodone-acetaminophen 10 mg-325 1 tab PO Q8H PRN pain 06/16/23 07/13/23 History mg tablet quetiapine 300 mg tablet 300 mg PO QHS mental health 06/16/23 Unknown History polysaccharide iron complex 150 mg 150 mg PO DAILY 30 days #30 caps 06/18/23 09/28/23 Rx iron capsule (Ferrex) rosuvastatin 20 mg tablet (Crestor) 20 mg PO DAILY #30 tabs 06/18/23 Unknown Rx lidocaine HCl 2 % mucosal solution 1 applic mucous membrane BID PRN 08/01/23 Unknown Rx (Lidocaine Viscous) pain #100 mL empagliflozin 25 mg tablet 25 mg PO DAILY 08/13/23 Unknown History (Jardiance) folic acid 1 mg tablet 1 mg PO BREAKFAST 08/13/23 Unknown History oxcarbazepine 600 mg tablet 600 mg PO BID 08/13/23 10/02/23 History (Trileptal) prazosin 1 mg capsule 1 mg PO QHS 08/13/23 Unknown History citalopram 40 mg tablet 40 mg PO QHS mental health 08/29/23 Unknown History sucralfate 1 gram tablet 1 g PO TIDAC PRN stomach upset 08/29/23 Unknown History lidocaine HCl 2 % mucosal solution 1 applic mucous membrane Q6H #100 10/02/23 Unknown Rx (Lidocaine Viscous) mL nystatin 100,000 unit/mL oral 2 ml PO Q6H 7 days #56 mL 10/02/23 Unknown Rx suspension prednisone 10 mg tablet 10 mg PO .daily #30 tabs 10/02/23 Unknown Rx cholecalciferol (vitamin D3) 25 25 mcg PO DAILY 02/13/24 Unknown History mcg (1,000 unit) capsule citalopram 40 mg tablet 40 mg PO DAILY 02/13/24 Unknown History Allergy/AdvReac Type Severity Reaction Status Date / Time levothyroxine Allergy Mild PT UNSURE Verified 10/30/23 10:17 OF REACTION tramadol HCl (From Ultram) AdvReac Vomiting Verified 10/30/23 10:17 Family History Father Diabetes Asthma Brother Asthma Unknown Asthma Arthritis Diabetes Heart disease Hypertension Thyroid disorder Surgical History History of cholecystectomy History of colonoscopy History of esophagogastroduodenoscopy (EGD) history of sinusplasty History of total hysterectomy History of tubal ligation Hx of cystoscopy lymph node removal Social History household members: significant other Smoking Status: Current every day smoker tobacco type: e-cigarettes alcohol intake: never substance use type: does not use ROS ROS ED Constitutional Constitutional ED: Reports other Details: Positive fatigue ; Denies chills or fever(s) Eyes Eyes: Denies change in vision ENT ENT ED: Reports rhinorrhea and other Details: Positive sinus pain/pressure ; Denies sore throat Cardiovascular Cardiovascular: Denies chest pain, palpitations or racing heartbeat Respiratory/Chest Respiratory/Chest: Reports cough; Denies dyspnea Gastrointestinal Gastrointestinal: Reports nausea; Denies abdominal pain, diarrhea or vomiting Genitourinary Genitourinary ED: Denies dysuria or hematuria Musculoskeletal Musculoskeletal: Reports myalgias Integumentary Denies rash Neurologic Neurologic: Reports headache(s) and weakness Hematologic/Lymphatic Hematologic/Lymphatic: Reports easy bleeding and easy bruising EXAM Physical Exam Const Vital Signs: 03/03/24 02:05 03/03/24 02:10 03/03/24 04:05 Temperature 97.7 F L Temperature Source Oral Pulse Rate 91 77 Respiratory Rate 16 16 Respiratory Effort Normal Respiratory Pattern Normal Blood Pressure 123/78 H 109/64 Blood Pressure Mean 93 79 Pulse Ox 93 90 Oxygen Delivery Method Room Air Room Air 03/03/24 04:36 Temperature 98.1 F Temperature Source Pulse Rate 79 Respiratory Rate 16 Respiratory Effort Respiratory Pattern Blood Pressure 121/67 H Blood Pressure Mean 85 Pulse Ox 91 Oxygen Delivery Method Positive well nourished, well developed and obese General Appearance ED: well developed; Negative for pallor Nutritional Appearance: obese HEENT Reports dry mucous membranes HEENT Narrative: Mucous membranes are dry and tacky No tongue or lip swelling no oral lesions no airway edema or compromise No secondary findings in the posterior pharynx to suggest infection Mouth ED: Yes dry mucous membranes Mouth: dry mucous membranes Eyes PERRL and EOMs intact bilaterally General Eye ED: Negative for pale conjunctiva or scleral icterus Neck supple Neck Narrative: No nuchal rigidity or meningeal signs Resp normal respiratory effort and clear to auscultation bilaterally Resp Narrative: Breath sounds are diminished throughout but overall clear to auscultation without signs of respiratory distress Cardio regular rate and regular rhythm Rate: other Other Details: Heart is regular rate and rhythm Radial and carotid pulses are equal and symmetric GI normal to inspection, nondistended, normoactive bowel sounds, non-tender, non-distended and no masses GI Narrative: Abdomen is soft nontender nondistended with normal active bowel sounds no voluntary guarding or rigidity or pulsatile mass Auscultation: normoactive bowel sounds Palpation: soft Extremity normal to inspection Neuro oriented x3, CN's II-XII intact bilaterally and no sensory deficits noted Neuro Narrative: Cranial nerves II through XII are grossly intact there are no focal neurologic deficits No pronator drift no dysmetria no truncal ataxia NIH stroke scale score of 0 Sensorium / Orientation: alert Motor Exam: strength 5/5 throughout Psych Psych Narrative: Patient has a flat affect Skin no rashes or lesions noted General Skin Exam: Negative for jaundice or pallor MDM MDM MDM Narrative Medical decision making narrative: Patient presented to ER with stable vitals and has a nonfocal neurologic exam. She reported feeling foggy or off. As she is on Eliquis there is concern for a spontaneous subarachnoid or subdural hemorrhage and as she reports multiple weeks of sinus congestion and pressure there is potential for pneumocephalus. Other differential diagnoses are acute blood loss anemia versus electrolyte abnormality versus acute kidney injury. Secondary to his basic blood work was obtained and a CT scan of the head was ordered. Labs revealed no clinically significant findings and CT scan revealed chronic changes without acute issues. The patient was able to fall asleep in the ER her vital signs remained stable on repeat evaluation her neurologic exam is normal. Therefore at this time with negative workup and stable vitals and normal neurologic exam I do not feel there is need for further evaluation in the hospital and she is otherwise safe for discharge History & Record Review Discussion w/independent historian: Patient and Significant other Lab Data Attestation: I reviewed the patient's lab results. Labs: Laboratory Results - last 24 hr 03/03/24 03:00 WBC 8.2 RBC 4.48 Hgb 11.1 L Hct 35.4 L MCV 79.0 L MCH 24.8 L MCHC 31.4 L RDW Std Deviation 44.6 H RDW Coeff of Karina 15.7 H Plt Count 322 MPV 9.8 Immature Gran % (Auto) 0.400 Neut % (Auto) 44.2 L Lymph % (Auto) 44.6 H [place] % (Auto) 7.8 Eos % (Auto) 2.4 Baso % (Auto) 0.6 Absolute Neuts (auto) 3.6 Absolute Lymphs (auto) 3.67 Nucleated RBC % 0 Sodium 139 Potassium 3.7 Chloride 106 Carbon Dioxide 26.0 Anion Gap 7 BUN 11 Creatinine 0.71 Estim Creat Clear Calc 131.24 Est GFR (MDRD) Af Amer 116 Est GFR (MDRD) Non-Af 96 BUN/Creatinine Ratio 15.4 Glucose 146 H Calcium 8.7 Magnesium 2.2 Radiography Diagnostic Testing: Clinical Impression(s) from Imaging Studies Brain CT 03/03/24 02:22 IMPRESSION: No acute intracranial abnormality. Left mastoid disease. Electronically Signed: Sol Combs MD at 4:29 EDT , Discharge Plan Triage Chief Complaint: General Illness ED Provider: Vinod Hopkins Dx/Rx/DC Orders Clinical Impression: Fatigue, Sinusitis, Hypothyroidism (acquired), DM type 2 (diabetes mellitus, type 2) Instructions: Understanding Sinus Problems, ED Weakness (Uncertain Cause) Prescriptions: No Action Victoza 2-Kobe 0.6 mg/0.1 mL (18 mg/3 mL) pen injector 1.8 mg SC DAILY Eliquis 5 mg tablet 5 mg PO BID Patient Comments: WILL STOP 2 DAYS PRIOR pregabalin [Lyrica] 100 mg capsule 100 mg PO TID oxybutynin chloride 10 mg tablet extended release 24hr 10 mg PO DAILY albuterol sulfate [Ventolin HFA] 90 mcg/actuation HFA aerosol inhaler 1 inh INHALATION PRN PRN (Reason: breathing) citalopram 40 mg tablet 40 mg PO DAILY cholecalciferol (vitamin D3) 25 mcg (1,000 unit) capsule 25 mcg PO DAILY pantoprazole 40 mg tablet,delayed release (DR/EC) 40 mg PO BID Patient Comments: acid reflex pramipexole 1 mg tablet 1 mg PO TID Patient Comments: muscle spasms hydroxyzine pamoate 50 mg capsule 50 mg PO TID Qty: 0 0RF Patient Comments: 1 capsule three times a day as needed Rx Instructions: hold while taking ciprofloxacin aspirin 81 mg tablet,delayed release (DR/EC) 81 mg PO DAILY Patient Comments: STOPPING 2 DAYS PRIOR cyclobenzaprine 10 mg tablet 10 mg PO TID Patient Comments: TAKE 1/2 TO 1 (ONE-HALF TO ONE) TABLET BY MOUTH THREE TIMES DAILY NEEDED clotrimazole-betamethasone 1-0.05 % lotion 1 applic TOPICAL Q12H PRN (Reason: skin irritation) Patient Comments: APPLY LOTION TOPICALLY TO AFFECTED AREA TWICE DAILY NEEDED insulin lispro protamin-lispro [Humalog Mix 75-25 KwikPen] 100 unit/mL (75-25) insulin pen 35 unit SUBCUT BID Patient Comments: INJECT 25-35 UNITS SUBCUTANEOUSLY TWICE DAILY IN THE MORNING AND IN THE EVENING; sliding scale metronidazole 0.75 % (37.5mg/5 gram) gel 1 appful VAGINAL PRN PRN (Reason: vaginal dryness) Patient Comments: INSERT 1 APPLICATORFUL VAGINALLY ONCE DAILY NEEDED FOR 5 DAYS oxycodone-acetaminophen 10-325 mg tablet 1 tab PO Q8H PRN (Reason: pain) Patient Comments: TAKE 1 TABLET BY MOUTH THREE TIMES DAILY NEEDED CHRONIC INTRACTABLE PAIN quetiapine 300 mg tablet 300 mg PO QHS Patient Comments: TAKE 1 TABLET BY MOUTH ONCE DAILY AT BEDTIME rosuvastatin [Crestor] 20 mg tablet 20 mg PO DAILY Qty: 30 0RF Rx Instructions: TO REPLACE 10mg polysaccharide iron complex [Ferrex 150] 150 mg iron Capsule 150 mg PO DAILY 30 Days Qty: 30 0RF Patient Comments: STOPPING 09/27 Jardiance 25 mg tablet 25 mg PO DAILY prazosin 1 mg capsule 1 mg PO QHS Patient Comments: TAKE 1 CAPSULE BY MOUTH ONCE DAILY AT BEDTIME oxcarbazepine [Trileptal] 600 mg tablet 600 mg PO BID folic acid 1 mg Tablet 1 mg PO BREAKFAST citalopram 40 mg tablet 40 mg PO QHS Rx Instructions: hold while taking ciprofloxacin sucralfate 1 gram tablet 1 g PO TIDAC PRN (Reason: stomach upset) nystatin 100,000 unit/mL suspension 2 ml PO Q6H 7 Days Qty: 56 0RF prednisone 10 mg tablet 10 mg PO .daily Qty: 30 0RF lidocaine HCl [Lidocaine Viscous] 2 % solution 1 applic mucous membrane Q6H Qty: 100 0RF lidocaine HCl [Lidocaine Viscous] 2 % solution 1 applic mucous membrane BID PRN (Reason: pain) Qty: 100 1RF Primary Care Provider: Albert Cheatham Referrals: Albert Cheatham DO [Primary Care Provider] - Activity Restrictions/Additional Instructions: Your workup today revealed no clinically significant findings in both laboratory studies or imaging. I feel your symptoms are most likely related to a viral sinus infection causing increased sinus pain and pressure. However with potential for bacterial infection please continue antibiotics and return to the ER should you have any further concerns. Also continue all of your home medications as directed by your family doctor Print Language: Jamaican Disposition Disposition: Home, Self Care Discharge Date/Time: 03/03/24 04:42
[2024-03-03 04:36] VITALS: BP 121/67; PULSE 79; RESP 16; TEMP 36.7; O2SAT 91
== END 2024-03-03 04:42 | disposition home or self-care (01) ==
PROVIDERS: Emergency Provider Emergency Medicine; PCP Family Medicine; Visit Provider Emergency Medicine
DX: R53.83 Other fatigue (principal); J44.9 Chronic obstructive pulmonary disease, unspecified; E11.42 Type 2 diabetes mellitus with diabetic polyneuropathy; J32.9 Chronic sinusitis, unspecified; E03.9 Hypothyroidism, unspecified; F17.290 Nicotine dependence, other tobacco product, uncomplicated; E66.9 Obesity, unspecified; Z86.718 Personal history of other venous thrombosis and embolism; Z86.711 Personal history of pulmonary embolism; Z79.01 Long term (current) use of anticoagulants; Z86.73 Personal history of transient ischemic attack (TIA), and cerebral infarction without residual deficits
CPT/HCPCS: 70450; 80048; 83735; 85025; 96361; 96374; 96376; 99284; J7030; A4216; J2405

== ENCOUNTER → 2024-04-17 | Outpatient (CLI) | payer MEDICAID, SELFPAY | END | disposition home or self-care (01) | LOC: SL 11:31 | PROVIDERS: PCP Family Medicine; Referring Provider Family Medicine; Visit Provider Family Medicine | DX: Z46.89 Encounter for fitting and adjustment of other specified devices (principal) ==

== ENCOUNTER 2024-06-08 20:56 | Emergency (ER) | payer MEDICAID, SELFPAY ==
[2024-06-08 20:57] VITALS: BP 141/82; PULSE 96; RESP 18; TEMP 36.6; O2SAT 96; BMI 33.8
--- NOTE | 2024-06-08 21:20 | CT_ITS ---
EXAM: CT ABDOMEN AND PELVIS WITH INTRAVENOUS CONTRAST CLINICAL INDICATION: Pain, Bleeding TECHNIQUE: Helically acquired images were obtained of the abdomen and pelvis with intravenous contrast. This CT exam was performed using one or more of the following dose reduction techniques: automated exposure control, adjustment of the mA and/or kV according to patient size, and/or use of iterative reconstruction technique. CONTRAST: IV 100mL Isovue-370 RADIATION DOSE: CTDIvol = 16.10 mGy, DLP = 1260.54 mGy-cm COMPARISON: September 29, 2015. FINDINGS: LOWER THORAX: Unremarkable. Lung bases are clear. No cardiomegaly. No significant pericardial effusion. ABDOMEN: LIVER: Mildly enlarged or elongated right lobe of liver, 19.4 cm craniocaudal. GALLBLADDER AND BILE DUCTS: Cholecystectomy clips. Mildly prominent common duct, 1 cm [place], tapering to 9 mm the pancreas and 5 mm near the duodenal ampulla. PANCREAS: Atrophic short distal pancreas. SPLEEN: Spleen contour is mildly lobulated and irregular, the irregular contour. ADRENALS: Unremarkable. No nodules. KIDNEYS AND URETERS: Unremarkable. Normal renal size and position. No hydronephrosis. STOMACH AND BOWEL: See above. PELVIS: APPENDIX: Mild fluid and gas in the stomach mild scattered fluid in mid and distal small bowel loops. Mild fluid in the right colon. Mild-moderate stool and minimal gas in most of the remainder of the colon, collapsed distal sigmoid and rectum small appendix is noted over the right iliac vessels. BLADDER: Trace gas in the anterior urinary bladder, correlate with whether the patient was recently catheterized. REPRODUCTIVE: Hysterectomy. ABDOMEN and PELVIS: INTRAPERITONEAL SPACE: Unremarkable. No ascites or other fluid collection. No free air. BONES/JOINTS: L5 pars defects are again noted. No spondylolisthesis. No spinal stenosis. No suspicious lytic or blastic abnormality. SOFT TISSUES: Unremarkable. No discrete abdominal or pelvic wall hernia. VASCULATURE: Minimal atherosclerotic calcifications, no suspicious vascular findings. Abdominal aorta is non-dilated. LYMPH NODES: Unremarkable. No enlarged lymph nodes. OTHER FINDINGS: From prior exam but it is smaller in size, 11.6 cm x 5.8 cm, previously 13.9 cm x [address]/Abdomen/Pelvis W IV Cont ONLY IMPRESSION: 1. Nonspecific findings. Trace air in the anterior bladder, correlate with whether the patient was catheterized or evidence of UTI. 2. Cholecystectomy. Hysterectomy. 3. Borderline hepatomegaly, stable. 4. The spleen is more lobulated in shape but mildly smaller in size compared to 2016. Within normal limits in size. 5. Slightly thick-walled appearance of multiple segments of colon may be due to very early or mild colitis in the appropriate clinical setting. Electronically Signed: Ellen Vee MD at 23:37 EDT ,
--- NOTE | 2024-06-08 21:22 | ED.VIS.GI ---
HPI HPI - GI History of Present Illness Chief Complaint: GI Bleed Narrative Narrative: 43-year-old female past medical history of lichen planus of the esophagus presents with reported GI bleeding that she has had for the last few days. She relates history that a week or 2 ago she had bright red blood per rectum. On Sunday, 2 days ago, she was nauseated and vomited dark brown substance. She then developed black stool over the last few days. She does state that she does take iron supplementation, but her feces are usually green in color. She is still nauseated but now she is having epigastric pain and cramping as well as lower abdominal pain and cramping. Past surgical history to the abdomen does include cholecystectomy as well as hysterectomy. She states that she has multiple ulcers of her esophagus, and is being seen at the [facility] as well as by her halver machine operator, Dr. Hodge. She states that this is the worst that it has looked according to both sources in quite some time. She denies any other bleeding diathesis. 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 Wears hearing aid in both ears Hypothyroidism Chronic pain GERD (gastroesophageal reflux disease) Hx of lichen planus Chronic cough CPAP (continuous positive airway pressure) dependence Pulmonary embolism DVT (deep venous thrombosis) Migraine headache Back pain Recurrent UTI Bone fracture Arthritis Seasonal allergies Chronic ethmoidal sinusitis Depression Rosacea Anxiety Morbid obesity Atopic dermatitis Chronic mastoiditis Myalgia and myositis Peripheral edema SIERRA (obstructive sleep apnea) Restless legs syndrome Chronic back pain Acute DVT (deep venous thrombosis) Hyperlipidemia Sarcoidosis Peripheral neuropathy DM type 2 (diabetes mellitus, type 2) GERD (gastroesophageal reflux disease) Asthma Home Medications ?Medication ?Instructions ?Recorded ?Last Taken ?Type liraglutide 0.6 mg/0.1 mL (18 mg/3 1.8 mg subcut DAILY diabetes 01/31/18 06/11/19 History mL) subcutaneous pen injector (Victoza 2-Kobe) pantoprazole 40 mg tablet,delayed 40 mg PO BID reflux 01/31/18 10/02/23 History release pramipexole 1 mg tablet 1 mg PO TID restless legs 01/31/18 10/02/23 History hydroxyzine pamoate 50 mg capsule 50 mg PO TID mental health ##0 06/12/19 10/02/23 Rx albuterol sulfate 90 mcg/actuation 1 inh inhalation PRN PRN breathing 12/23/20 Unknown History aerosol inhaler (Ventolin HFA) apixaban 5 mg tablet (Eliquis) 5 mg PO BID blood thinner 12/23/20 09/28/23 History oxybutynin chloride 10 mg 10 mg PO DAILY bladder 12/23/20 10/02/23 History tablet,extended release 24 hr pregabalin 100 mg capsule (Lyrica) 100 mg PO TID pain 12/23/20 07/13/23 History aspirin 81 mg tablet,delayed 81 mg PO DAILY heart health 06/16/23 09/28/23 History release clotrimazole-betamethasone 1 1 applic topical Q12H PRN skin 06/16/23 Unknown History %-0.05 % lotion irritation cyclobenzaprine 10 mg tablet 10 mg PO TID pain 06/16/23 07/13/23 History insulin lispro protamine-lispro 35 unit subcut BID diabetes 06/16/23 Unknown History 100 unit/mL (75-25) subcutaneous pen (Humalog Mix 75-25 KwikPen) metronidazole 0.75 % (37.5 mg/5 1 appful vaginal PRN PRN vaginal 06/16/23 Unknown History gram) vaginal gel dryness oxycodone-acetaminophen 10 mg-325 1 tab PO Q8H PRN pain 06/16/23 07/13/23 History mg tablet quetiapine 300 mg tablet 300 mg PO QHS mental health 06/16/23 Unknown History polysaccharide iron complex 150 mg 150 mg PO DAILY 30 days #30 caps 06/18/23 09/28/23 Rx iron capsule (Ferrex) rosuvastatin 20 mg tablet (Crestor) 20 mg PO DAILY #30 tabs 06/18/23 Unknown Rx lidocaine HCl 2 % mucosal solution 1 applic mucous membrane BID PRN 08/01/23 Unknown Rx (Lidocaine Viscous) pain #100 mL empagliflozin 25 mg tablet 25 mg PO DAILY 08/13/23 Unknown History (Jardiance) folic acid 1 mg tablet 1 mg PO BREAKFAST 08/13/23 Unknown History oxcarbazepine 600 mg tablet 600 mg PO BID 08/13/23 10/02/23 History (Trileptal) prazosin 1 mg capsule 1 mg PO QHS 08/13/23 Unknown History citalopram 40 mg tablet 40 mg PO QHS mental health 08/29/23 Unknown History sucralfate 1 gram tablet 1 g PO TIDAC PRN stomach upset 08/29/23 Unknown History lidocaine HCl 2 % mucosal solution 1 applic mucous membrane Q6H #100 10/02/23 Unknown Rx (Lidocaine Viscous) mL nystatin 100,000 unit/mL oral 2 ml PO Q6H 7 days #56 mL 10/02/23 Unknown Rx suspension prednisone 10 mg tablet 10 mg PO .daily #30 tabs 10/02/23 Unknown Rx cholecalciferol (vitamin D3) 25 25 mcg PO DAILY 02/13/24 Unknown History mcg (1,000 unit) capsule citalopram 40 mg tablet 40 mg PO DAILY 02/13/24 Unknown History Allergy/AdvReac Type Severity Reaction Status Date / Time levothyroxine Allergy Mild PT UNSURE Verified 06/08/24 20:59 OF REACTION tramadol HCl (From Ultram) AdvReac Vomiting Verified 06/08/24 20:59 Family History Father Diabetes Asthma Brother Asthma Unknown Asthma Arthritis Diabetes Heart disease Hypertension Thyroid disorder Surgical History History of esophagogastroduodenoscopy (EGD) History of colonoscopy Hx of cystoscopy lymph node removal history of sinusplasty History of tubal ligation History of total hysterectomy History of cholecystectomy Social History household members: significant other Smoking Status: Current every day smoker tobacco type: e-cigarettes alcohol intake: never substance use type: does not use ROS ROS ED ROS Narrative Constitutional: No fever, no chills. HEENT: No sore throat. No neck pain. No loss of vision. No rhinorrhea. Cardiovascular: No chest pain. No palpitations. No pedal edema. Respiratory: No cough, no shortness of breath. Abdominal: Epigastric and lower abdominal pain. Positive nausea. Positive vomiting of brown substance 2 days ago. Bright red blood per rectum 1 to 2 weeks ago. Genitourinary: No dysuria. No hematuria. Musculoskeletal: No myalgias. No arthralgias. Neurologic: No headaches. No dizziness. No lightheadedness. Skin: No rash. No change in color. Psychiatric: No depression. No anxiety. EXAM Physical Exam Narrative Exam Narrative: Afebrile. Vital signs noted. HEENT: Normocephalic. Atraumatic. PERRL, EOMI. Neck soft and supple. No point tenderness or step off. Cardiovascular: Regular rate and rhythm. No murmurs, rubs, or gallops appreciated. Respiratory: No tachypnea. Lungs clear to auscultation bilaterally. Gastrointestinal: Abdomen soft, mild tenderness to palpation epigastrium and bilateral lower quadrants with normoactive bowel sounds. No rebound or guarding. Neurological: Awake. Alert. Nonfocal, nonlateralizing. Skin: No rash. Normal color. No pallor. Musculoskeletal: No pedal edema. Full range of motion extremities. Const Vital Signs: 06/08/24 20:57 06/08/24 22:56 Temperature 98 F Temperature Source Oral Pulse Rate 96 83 Respiratory Rate 18 18 Blood Pressure 141/82 H 111/54 L Blood Pressure Mean 101 73 Pulse Ox 96 97 Oxygen Delivery Method Room Air Room Air MDM MDM MDM Narrative Medical decision making narrative: Differential diagnosis includes but not limited to esophageal ulcer bleeding/upper GI bleeding versus diverticular bleeding versus pancreatitis versus peptic ulcer disease. Patient does take blood thinners in the form of Eliquis and aspirin because she has history of DVT. Comprehensive workup was pursued. I will check her CBC to make sure that she does not require transfusion although she has not ever had a hemoglobin low enough to require transfusion. Will also check a BUN and creatinine which would indicate more towards upper GI bleeding. I was able to discuss the patient with Dr. Hodge, who agrees/advised that NG tube is not indicated. He prefers to treat her conservatively and check a BUN and creatinine oh as well as CT of the abdomen and pelvis and basic laboratory work. He states as long as those look stable that she would be able to be discharged and treated as an outpatient/conservative treatment. I discussed this with the patient and she seems agreeable to this initially. I reviewed her laboratory work and she has normal white count of 8.9 with hemoglobin normal at 12.7 and hematocrit 40.0, platelet count normal at 276. Sodium is normal at 137 and potassium 3.5 with chloride 106 and CO2 24.0. BUN is normal at 10 with normal creatinine of 0.95 which goes away from upper GI bleeding. Lipase is normal at 34 so I doubt pancreatitis. As well as a CT of the abdomen and pelvis does not show anything acute, I feel she would be able to be discharged home. I reviewed the radiology report of the CT of the abdomen and pelvis and there is no evidence of obstruction. They do comment on a small amount of air in the urinary bladder and to correlate with urinary tract infection. Patient denies any dysuria, but states she gets urinary tract infections all the time. She does not want to produce a urine sample and wait for the results, stating that she prefers to follow-up with her family doctor. I feel this is acceptable and reasonable. The CT of the abdomen and pelvis is otherwise unremarkable, and although there are few areas of thickened colon may be more mild colitis, but I think this is more nonspecific as she does not have any elevated white count or fever here. Upon repeat examination she is resting comfortably on the cot and is asking for [employer] prior to discharge. I feel she can be discharged to follow-up with her halver machine operator and her primary care provider, and her physicians at the [facility]. She and her fianc? are motivated for discharge. Return instructions to the emergency department were reviewed. Disposition is discharged home in stable condition. History & Record Review Discussion w/independent historian: Patient and Significant other Additional record(s) reviewed:: Prior ED visit Lab Data Attestation: I reviewed the patient's lab results. Labs: Laboratory Results - last 24 hr 06/08/24 21:40 WBC 8.9 RBC 5.06 Hgb 12.7 Hct 40.0 MCV 79.1 L MCH 25.1 L MCHC 31.8 L RDW Std Deviation 43.9 RDW Coeff of Karina 15.4 H Plt Count 276 MPV 10.4 Immature Gran % (Auto) 0.500 Neut % (Auto) 51.4 Lymph % (Auto) 32.5 Wilkin % (Auto) 7.8 Eos % (Auto) 7.2 H Baso % (Auto) 0.6 Absolute Neuts (auto) 4.6 Absolute Lymphs (auto) 2.88 Nucleated RBC % 0 Sodium 137 Potassium 3.5 Chloride 106 Carbon Dioxide 24.0 Anion Gap 8 BUN 10 Creatinine 0.95 Estim Creat Clear Calc 92.74 Est GFR (MDRD) Af Amer 83 Est GFR (MDRD) Non-Af 69 BUN/Creatinine Ratio 10.6 Glucose 246 H Calcium 9.0 Total Bilirubin 0.30 AST 13 L ALT 17 Alkaline Phosphatase 126 H Total Protein 7.4 Albumin 3.2 Globulin 4.2 Albumin/Globulin Ratio 0.8 L Lipase 34 Radiography Diagnostic Testing: Clinical Impression(s) from Imaging Studies Abdomen/Pelvis CT 06/08/24 21:20 IMPRESSION: 1. Nonspecific findings. Trace air in the anterior bladder, correlate with whether the patient was catheterized or evidence of UTI. 2. Cholecystectomy. Hysterectomy. 3. Borderline hepatomegaly, stable. 4. The spleen is more lobulated in shape but mildly smaller in size compared to 2016. Within normal limits in size. 5. Slightly thick-walled appearance of multiple segments of colon may be due to very early or mild colitis in the appropriate clinical setting. Electronically Signed: Ellen Vee MD at 23:37 EDT , Management Discussion w/another healthcare provider: Senior Officer (Dr. Hodge, gastroenterology) Discharge Plan Triage Chief Complaint: GI Bleed ED Provider: Ariel Wolfe Dx/Rx/DC Orders Clinical Impression: Chronic anticoagulation, Abdominal pain, Coffee ground emesis, Esophagitis Instructions: Esophagitis, ED Abdominal Pain Unkn Cause Fem, ED Upper GI Bleeding (Stable) Prescriptions: No Action Victoza 2-Kobe 0.6 mg/0.1 mL (18 mg/3 mL) pen injector 1.8 mg SC DAILY Eliquis 5 mg tablet 5 mg PO BID Patient Comments: WILL STOP 2 DAYS PRIOR pregabalin [Lyrica] 100 mg capsule 100 mg PO TID oxybutynin chloride 10 mg tablet extended release 24hr 10 mg PO DAILY albuterol sulfate [Ventolin HFA] 90 mcg/actuation HFA aerosol inhaler 1 inh INHALATION PRN PRN (Reason: breathing) citalopram 40 mg tablet 40 mg PO DAILY cholecalciferol (vitamin D3) 25 mcg (1,000 unit) capsule 25 mcg PO DAILY pantoprazole 40 mg tablet,delayed release (DR/EC) 40 mg PO BID Patient Comments: acid reflex pramipexole 1 mg tablet 1 mg PO TID Patient Comments: muscle spasms hydroxyzine pamoate 50 mg capsule 50 mg PO TID Qty: 0 0RF Patient Comments: 1 capsule three times a day as needed Rx Instructions: hold while taking ciprofloxacin aspirin 81 mg tablet,delayed release (DR/EC) 81 mg PO DAILY Patient Comments: STOPPING 2 DAYS PRIOR cyclobenzaprine 10 mg tablet 10 mg PO TID Patient Comments: TAKE 1/2 TO 1 (ONE-HALF TO ONE) TABLET BY MOUTH THREE TIMES DAILY NEEDED clotrimazole-betamethasone 1-0.05 % lotion 1 applic TOPICAL Q12H PRN (Reason: skin irritation) Patient Comments: APPLY LOTION TOPICALLY TO AFFECTED AREA TWICE DAILY NEEDED insulin lispro protamin-lispro [Humalog Mix 75-25 KwikPen] 100 unit/mL (75-25) insulin pen 35 unit SUBCUT BID Patient Comments: INJECT 25-35 UNITS SUBCUTANEOUSLY TWICE DAILY IN THE MORNING AND IN THE EVENING; sliding scale metronidazole 0.75 % (37.5mg/5 gram) gel 1 appful VAGINAL PRN PRN (Reason: vaginal dryness) Patient Comments: INSERT 1 APPLICATORFUL VAGINALLY ONCE DAILY NEEDED FOR 5 DAYS oxycodone-acetaminophen 10-325 mg tablet 1 tab PO Q8H PRN (Reason: pain) Patient Comments: TAKE 1 TABLET BY MOUTH THREE TIMES DAILY NEEDED CHRONIC INTRACTABLE PAIN quetiapine 300 mg tablet 300 mg PO QHS Patient Comments: TAKE 1 TABLET BY MOUTH ONCE DAILY AT BEDTIME rosuvastatin [Crestor] 20 mg tablet 20 mg PO DAILY Qty: 30 0RF Rx Instructions: TO REPLACE 10mg polysaccharide iron complex [Ferrex 150] 150 mg iron Capsule 150 mg PO DAILY 30 Days Qty: 30 0RF Patient Comments: STOPPING 09/27 Jardiance 25 mg tablet 25 mg PO DAILY prazosin 1 mg capsule 1 mg PO QHS Patient Comments: TAKE 1 CAPSULE BY MOUTH ONCE DAILY AT BEDTIME oxcarbazepine [Trileptal] 600 mg tablet 600 mg PO BID folic acid 1 mg Tablet 1 mg PO BREAKFAST citalopram 40 mg tablet 40 mg PO QHS Rx Instructions: hold while taking ciprofloxacin sucralfate 1 gram tablet 1 g PO TIDAC PRN (Reason: stomach upset) nystatin 100,000 unit/mL suspension 2 ml PO Q6H 7 Days Qty: 56 0RF prednisone 10 mg tablet 10 mg PO .daily Qty: 30 0RF lidocaine HCl [Lidocaine Viscous] 2 % solution 1 applic mucous membrane Q6H Qty: 100 0RF lidocaine HCl [Lidocaine Viscous] 2 % solution 1 applic mucous membrane BID PRN (Reason: pain) Qty: 100 1RF Primary Care Provider: Albert Cheatham Referrals: Albert Cheatham DO [Primary Care Provider] - 3-5 Days if not improving FriendAmos DO [Med Staff - Active Staff] - 3-5 Days if not improving Activity Restrictions/Additional Instructions: Follow-up with gastroenterology as soon as possible, preferably within the next 3 to 5 days if not improving. You may want to follow-up with your physicians at the [facility] as well. Return with new or worsening symptoms including bright red blood from your rectum, or vomiting bright red blood as well. Print Language: Greenlandic Disposition Disposition: Home, Self Care
[2024-06-08] MEDS: 0.9% Normal Saline (1000mL) 1,000 ML 999 ML IV (21:44)
[2024-06-08 21:47] LABS: Absolute Lymphocyte Count 2.88 X10^3/uL (0.83-4.51); Absolute Neutrophil Count 4.6 X10^3/uL (2.0-7.7); Basophil# 0.05 X10^3/uL; Basophil% 0.6 % (0-1); Eosinophil# 0.64 X10^3/uL; Eosinophils% 7.2 % (0-5); Hemoglobin 12.7 g/dL (12.0-15.0); Lymphocyte # 2.88 X10^3/ul (0.83-4.51); Lymphocyte % 32.5 % (19-41); Mean Corp Hgb Conc 31.8 g/dL (32-36); Mean Corpuscular Hgb 25.1 pg (27.0-32.0); Mean Corpuscular Volume 79.1 fL (81-99); Mean Platelet Vol. 10.4 fl (6.2-12.0); Monocyte# 0.69 X10^3/uL; Monocyte% 7.8 % (0-10); NRBC Flagged by Analyzer 0 % (0-5); Neutrophil # 4.57 X10^3/uL (2.7-7.7); Neutrophil % 51.4 % (47-70); Platelet Count 276 K/mm3 (150-450); RBC Distribution Width CV 15.4 % (11.6-14.6); RBC Distribution Width SD 43.9 fl (35.1-43.9); Red Blood Count 5.06 M/mm3 (4.2-5.4); White Blood Count 8.9 K/mm3 (4.4-11.0)
[2024-06-08 22:39] LABS: ALB/GLOB Ratio 0.8 RATIO (0.9-2.4); AST(SGOT) 13 U/L (15-37); Alanine Aminotransfer ALT/SGPT 17 U/L (13-56); Albumin, Serum 3.2 g/dL (3.2-5.0); Alkaline Phosphatase 126 U/L (45-117); Anion Gap 8 (5-15); BUN 10 mg/dL (7-18); BUN/Creat Ratio 10.6 RATIO (10-20); Chloride 106 mmol/L (98-107); Creatinine, Serum 0.95 mg/dL (0.55-1.02); EST Glomerular Filtration Rate 69 mL/min (>60); Est Glom Filt Rate - Afr Amer 83 mL/min (>60); Estimated Creatinine Clearance 92.74 ml/min; Globulin 4.2 g/dL (2.2-4.2); Glucose 246 mg/dL (74-106); Lipase 34 U/L (13-75); Potassium 3.5 mmol/L (3.5-5.1); Protein, Total 7.4 g/dL (6.4-8.2); Sodium Level 137 mmol/L (136-145)
[2024-06-08 22:56] VITALS: BP 111/54; PULSE 83; RESP 18; O2SAT 97
[2024-06-08 23:56] VITALS: BP 108/60; PULSE 80; RESP 18; TEMP 36.6; O2SAT 97
== END 2024-06-08 23:59 | disposition home or self-care (01) ==
PROVIDERS: Emergency Provider Emergency Medicine; PCP Family Medicine; Referring Provider Emergency Medicine; Visit Provider Emergency Medicine
DX: R10.9 Unspecified abdominal pain (principal); J44.9 Chronic obstructive pulmonary disease, unspecified; E11.42 Type 2 diabetes mellitus with diabetic polyneuropathy; K20.90 Esophagitis, unspecified without bleeding; R11.2 Nausea with vomiting, unspecified; G47.33 Obstructive sleep apnea (adult) (pediatric); F17.290 Nicotine dependence, other tobacco product, uncomplicated; Z86.73 Personal history of transient ischemic attack (TIA), and cerebral infarction without residual deficits; Z86.718 Personal history of other venous thrombosis and embolism; Z79.01 Long term (current) use of anticoagulants
CPT/HCPCS: 74177; 80053; 83690; 85025; 96360; 99282; J7030; Q9967; A4216

== ENCOUNTER 2024-08-01 11:53 | Day surgery (SDC) | payer MEDICAID, SELFPAY ==
--- NOTE | 2024-06-26 06:26 | NURSING ---
Patient up to bathroom for enema due to poor bowel prep for colonoscopy. Patient stated that stools are still thick brown liquid
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
[2024-08-01] VITALS (7 sets, daily range): BP systolic 90–118; BP diastolic 68–85; PULSE 78–97; RESP 12–18; TEMP 36.1–36.5; O2SAT 93–97; BMI 32.2
--- NOTE | 2024-08-01 12:43 | PCM.PRE.AN2 ---
ASA Classification* ASA Classification ASA Classification: 2 Assessment & Plan Anesthesia* Anesthesia Assessment Anesthesia Assessment: Discussed sedation and/or anesthesia options, risks, benefits, and alternatives with patient/parents/legal guardian/POA. Questions invited. The patient/parents/legal guardian/POA seems to understand and agrees to proceed with anesthesia plan. Reviewed the physical assessment, medical history, allergy history and patient home medications list prior to surgery/procedure/anesthetic and documented any changes. Performed airway and anesthesia risk assessments. Anesthesia Type Anesthesia Type: MAC History Source History Obtained from:: Patient and Chart Anesthesia Focused Assessment* Temperature: 97 F Pulse Rate: 97 Blood Pressure: 118/85 Respiratory Rate: 16 Pulse Ox: 97 Oxygen Delivery Method: Room Air Airway Assessment Mouth opens: >3 cm Mallampati Score: II Teeth Condition: Dentures (Patient has upper and lower dentures.) Neck Range of motion (ROM): Full ROM Focused Labs Anesthesia Preop lab: CBC WBC 8.9 K/mm3 (4.4-11.0) 06/08/24 21:40 RBC 5.06 M/mm3 (4.2-5.4) 06/08/24 21:40 Hgb 12.7 g/dL (12.0-15.0) 06/08/24 21:40 Hct 40.0 % (37-47) 06/08/24 21:40 Plt Count 276 K/mm3 (150-450) 06/08/24 21:40 CHEMISTRY Potassium 3.5 mmol/L (3.5-5.1) 06/08/24 21:40 Sodium 137 mmol/L (136-145) 06/08/24 21:40 Magnesium 2.2 mg/dL (1.6-2.6) 03/03/24 03:00 Phosphorus 4.9 mg/dL (2.5-4.9) 08/14/23 07:54 BUN 10 mg/dL (7-18) 06/08/24 21:40 Creatinine 0.95 mg/dL (0.55-1.02) 06/08/24 21:40 Glucose 246 mg/dL (74-106) H 06/08/24 21:40 POC Glucose 311 mg/dL (74-106) H 10/30/23 10:33 TSH 0.26 uIU/mL (0.358-3.74) L 08/14/23 07:54 COAG PT 14.8 SECONDS (11.7-14.9) 10/30/23 10:30 Urine Test Negative Negative 06/12/12 18:30 Pre-Assessment Diagnosis/Proposed Procedure Planned Operative Procedure(s): COLONOSCOPY Anesthesia History Anesthesia History - compliance engineer products: Anesthesia History - compliance engineer products Hx Hospitalization Yes: Jun06/24/24 09:34 Any Problems With Anesthesia No 06/24/24 09:34 Cholinesterase deficiency No 06/24/24 09:34 You/Your Family Experience No 06/24/24 09:34 fever (hyperthermia) with Relationship Recent Exposure to Contagious No 08/01/24 12:22 Disease Does patient have nerve No 06/24/24 09:34 stimulator Patient instructed to have device shut off --Does patient have Pacemaker No 08/01/24 12:22 or ICD? When Was Last Pacemaker Check QUESTION #4 FULL TEXT: You/Your Family Experience fever (hyperthermia) with Anesthesia Last Oral Intake Last Oral intake: Last Oral Intake NPO since 09:30 08/01/24 12:22 Meds taken in AM with sips of Yes 08/01/24 12:22 water? Meds patient instructed to see home list 08/01/24 12:22 take am of surgery Any additional information?: Yes NPO since: 09:30 Meds taken in AM with sips of water?: Yes PONV PONV - compliance engineer products: PONV - compliance engineer products Female Yes 06/24/24 09:34 HX of Motion Sickness No 06/24/24 09:34 HX of N/V After Surgery No 06/24/24 09:34 Non-Smoker No 06/24/24 09:34 Duration of Surgery greater No 06/24/24 09:34 than 60 minutes Number of Risk Factors 1 06/24/24 09:34 PONV Score Low Risk 06/24/24 09:34 Height & Weight Height & Weight: Anesthesia: Height & Weight Height 5 ft 7 in 08/01/24 12:22 Weight: 93.3 kg 08/01/24 12:22 Body Mass Index (BMI) 32.2 08/01/24 12:22 Respiratory Assessment Respiratory Assessment - compliance engineer products: Respiratory Tract Infection Hx - compliance engineer products Hx Respiratory Tract Infection No 06/24/24 09:34 STOP Sleep Apnea STOP Sleep Apnea - compliance engineer products: STOP Sleep Apnea - compliance engineer products Hx Hypertension No 06/24/24 09:34 Hx Sleep Apnea Yes 06/24/24 09:34 CPAP Yes: non compliant 06/24/24 09:34 BIPAP No 06/24/24 09:34 Do you snore loudly (louder than talking or can be heard Do you often feel tired/ fatigued/ sleepy during daytime? Has anyone observed you stop breathing during sleep? STOP Results Positive 06/24/24 09:34 QUESTION #5 FULL TEXT : Do you snore loudly (louder than talking or can be heard through closed doors)? 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 Specify any problems Hx of Preganancy in last 3 No 06/24/24 09:34 Months Nurse Filling Out Transfusion VCHRISTIN 06/24/24 09:34 & Questions: Date: 06/24/24 06/24/24 09:34 Time: 09:35 06/24/24 09:34 Patient unable to answer at this time (ie. 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 Wears hearing aid in both ears Hypothyroidism Chronic pain GERD (gastroesophageal reflux disease) Hx of lichen planus Chronic cough CPAP (continuous positive airway pressure) dependence Pulmonary embolism DVT (deep venous thrombosis) Migraine headache Back pain Recurrent UTI Bone fracture Arthritis Seasonal allergies Chronic ethmoidal sinusitis Depression Rosacea Anxiety Morbid obesity Atopic dermatitis Chronic mastoiditis Myalgia and myositis Peripheral edema SIERRA (obstructive sleep apnea) Restless legs syndrome Chronic back pain Acute DVT (deep venous thrombosis) Hyperlipidemia Sarcoidosis Peripheral neuropathy DM type 2 (diabetes mellitus, type 2) GERD (gastroesophageal reflux disease) Asthma Home Medications ?Medication ?Instructions ?Recorded ?Last Taken ?Type pantoprazole 40 mg tablet,delayed 40 mg PO BID reflux 01/31/18 08/01/24 History release pramipexole 1 mg tablet 1 mg PO TID restless legs 01/31/18 08/01/24 History albuterol sulfate 90 mcg/actuation 1 inh inhalation PRN PRN breathing 12/23/20 Unknown History aerosol inhaler (Ventolin HFA) apixaban 5 mg tablet (Eliquis) 5 mg PO BID blood thinner 12/23/20 07/28/24 History oxybutynin chloride 10 mg 10 mg PO DAILY bladder 12/23/20 07/31/24 History tablet,extended release 24 hr pregabalin 100 mg capsule (Lyrica) 100 mg PO TID pain 12/23/20 08/01/24 History aspirin 81 mg tablet,delayed 81 mg PO DAILY heart health 06/16/23 07/28/24 History release clotrimazole-betamethasone 1 1 applic topical Q12H PRN skin 06/16/23 07/31/24 History %-0.05 % lotion irritation cyclobenzaprine 10 mg tablet 10 mg PO TID PRN pain 06/16/23 08/01/24 History insulin lispro protamine-lispro 25 unit subcut BID diabetes 06/16/23 07/31/24 History 100 unit/mL (75-25) subcutaneous pen (Humalog Mix 75-25 KwikPen) metronidazole 0.75 % (37.5 mg/5 1 appful vaginal PRN PRN vaginal 06/16/23 07/31/24 History gram) vaginal gel dryness oxycodone-acetaminophen 10 mg-325 1 tab PO Q8H PRN pain 06/16/23 07/13/23 History mg tablet quetiapine 300 mg tablet 300 mg PO QHS PRN mental health 06/16/23 07/31/24 History polysaccharide iron complex 150 mg 150 mg PO DAILY 30 days #30 caps 06/18/23 07/31/24 Rx iron capsule (Ferrex) rosuvastatin 20 mg tablet (Crestor) 20 mg PO DAILY #30 tabs 06/18/23 07/31/24 Rx empagliflozin 25 mg tablet 25 mg PO DAILY 08/13/23 07/31/24 History (Jardiance) folic acid 1 mg tablet 1 mg PO BREAKFAST 08/13/23 07/31/24 History oxcarbazepine 600 mg tablet 600 mg PO BID 08/13/23 07/31/24 History (Trileptal) prazosin 1 mg capsule 1 mg PO QHS 08/13/23 07/31/24 History citalopram 40 mg tablet 40 mg PO QHS mental health 08/29/23 07/31/24 History cholecalciferol (vitamin D3) 25 25 mcg PO DAILY 02/13/24 07/31/24 History mcg (1,000 unit) capsule dulaglutide 4.5 mg/0.5 mL 4.5 mg subcut QWEEK 06/24/24 07/17/24 History subcutaneous pen injector (Trulicity) hydroxyzine pamoate 50 mg capsule 50 mg PO TID PRN mental health 06/24/24 08/01/24 History Allergy/AdvReac Type Severity Reaction Status Date / Time levothyroxine Allergy Mild PT UNSURE Verified 06/24/24 09:07 OF REACTION tramadol HCl (From Ultram) AdvReac Vomiting Verified 06/24/24 09:07 Family History Father Diabetes Asthma Brother Asthma Unknown Asthma Arthritis Diabetes Heart disease Hypertension Thyroid disorder Surgical History History of esophagogastroduodenoscopy (EGD) History of esophagogastroduodenoscopy (EGD) History of colonoscopy Hx of cystoscopy lymph node removal history of sinusplasty History of tubal ligation History of total hysterectomy History of cholecystectomy Social History household members: significant other Smoking Status: Current every day smoker tobacco type: e-cigarettes alcohol intake: never substance use type: does not use Review of Systems (Anesthesia) ROS Narrative System reviewed and no additional complaints, except as documented.
[2024-08-01 12:44] LABS: Bedside Glucose 184 mg/dL (74-106)
--- NOTE | 2024-08-01 13:00 | COLBX_PTH ---
PATIENT: NEIDA MANNING LOC: EN U#:[id number] AGE/SX: 43/F ROOM: RE08/01/[address]: Dr. Amos Hodge DO : 1980 BED: DIS: 08/01/2024 SPEC #: [id number] RECD: 08/01/24 16:26 STATUS: MEDHAT SHANNAN #: [id number] [place]: 08/01/24 13:[address]: Amos Hodge DEPT: SURGICAL PATHOLOGY RECD BY: Lis Adamson ENTERED: 08/04/24 11:06 SP TYPE: COLON BX OT DR: Dr. Albert Cheatham DO Tissues: A - Ileum, NOS B - COLON BIOPSY Procedures: Surgery Specimen Level IV HEADER OPERATION: Colonoscopy PRE-OP DIAGNOSIS: Iron deficiency anemia, anemia TISSUE SUBMITTED: A- Terminal ileum biopsy, B- Random colon biopsy MICROSCOPIC DIAGNOSIS A. Terminal ileum, biopsy: No pathologic change. B. Colon, random biopsy: No pathologic change. AM. 08/05/2024 MICROSCOPIC DESCRIPTION Slides are reviewed. GROSS DESCRIPTION A. Received in fixative is one container labeled with the patient's name and designated Terminal ileum biopsy. The specimen consists of multiple irregular fragments of light leslie soft tissue that in aggregate measure 1.5 x 0.5 x 0.1 cm. The specimen is totally submitted in one cassette. B. Received in fixative is one container labeled with the patient's name and designated Random colon biopsy. The specimen consists of multiple irregular fragments of light leslie soft tissue that in aggregate measure 2.5 x 0.8 x 0.1 cm. The specimen is totally submitted in one cassette. AM. 08/04/2024 TC:5 CPT:15282s8
--- NOTE | 2024-08-01 14:11 | OP.COLON_ITS ---
Patient Name: Anne Marie Lepe Procedure Date: 08/01/2024 1:37 PM Date of : 1980 Age: 43 Procedure: Colonoscopy Indications: Iron deficiency anemia Providers: Amos Hodge DO Referring MD: Albert Cheatham Medicines: Monitored Anesthesia Care Patient Profile: This is a 43 year old female. Refer to note in patient chart for documentation of history and physical. Last Colonoscopy: within the past 3 years. Complications: No immediate complications. Procedure: Pre-Anesthesia Assessment: - Prior to the procedure, a History and Physical was performed, and patient medications and allergies were reviewed. The patient is competent. The risks and benefits of the procedure and the sedation options and risks were discussed with the patient. All questions were answered and informed consent was obtained. Patient identification and proposed procedure were verified by the physician in the pre-procedure area. Mental Status Examination: alert and oriented. Airway Examination: normal oropharyngeal airway and neck mobility. Respiratory Examination: clear to auscultation. CV Examination: normal. ASA Grade Assessment: II - A patient with mild systemic disease. After reviewing the risks and benefits, the patient was deemed in satisfactory condition to undergo the procedure. The anesthesia plan was to use monitored anesthesia care (MAC). Immediately prior to administration of medications, the patient was re-assessed for adequacy to receive sedatives. The heart rate, respiratory rate, oxygen saturations, blood pressure, adequacy of pulmonary ventilation, and response to care were monitored throughout the procedure. The physical status of the patient was re-assessed after the procedure. After I obtained informed consent, the scope was passed under direct vision. Throughout the procedure, the patient's blood pressure, pulse, and oxygen saturations were monitored continuously. The Colonoscope was introduced through the anus and advanced to the terminal ileum. The colonoscopy was performed without difficulty. The patient tolerated the procedure well. The quality of the bowel preparation was adequate. The terminal ileum, ileocecal valve, appendiceal orifice, and rectum were photographed. Scope In: 1:51:48 PM Scope Withdrawal Time 0 hours 7 minutes 52 seconds Scope Out: 2:04:46 PM Total Procedure Duration Time 0 hours 12 minutes 58 seconds Findings: The perianal and digital rectal examinations were normal. An area of mildly congested mucosa was found in the rectum, in the sigmoid colon, in the transverse colon and in the ascending colon. Biopsies were taken with a cold forceps for histology. Verification of patient identification for the specimen was done. Estimated blood loss was minimal. The terminal ileum appeared normal. Biopsies were taken with a cold forceps for histology. Verification of patient identification for the specimen was done. Estimated blood loss was minimal. Impression: - Congested mucosa in the rectum, in the sigmoid colon, in the transverse colon and in the ascending colon. Biopsied. - The examined portion of the ileum was normal. Biopsied. Recommendation: - Discharge patient to home. - Resume previous diet. - Continue present medications. - Await pathology results. - Repeat colonoscopy in 5 years for surveillance. Procedure Code(s): --- Professional --- 09901, Colonoscopy, flexible; with biopsy, single or multiple CPT copyright 2021 [employer]. All rights reserved. The codes documented in this report are preliminary and upon environmental intern review may be revised to meet current compliance requirements. Amos Hodge DO 08/01/2024 2:11:00 PM This report has been signed electronically. Number of Addenda: 0 Note Initiated On: 08/01/2024 1:37 PM
--- NOTE | 2024-08-01 14:11 | OP.CCLET_ITS ---
08/01/2024 Albert Cheatham [address] [place] [address] Re : Colonoscopy procedure for Anne Marie Lepe Dear Dr. Cheatham This procedure was performed on Thursday, August 01, 2024. My impressions and recommendations are as follows: Impressions : - Congested mucosa in the rectum, in the sigmoid colon, in the transverse colon and in the ascending colon. Biopsied. - The examined portion of the ileum was normal. Biopsied. Recommendations : - Discharge patient to home. - Resume previous diet. - Continue present medications. - Await pathology results. - Repeat colonoscopy in 5 years for surveillance. My findings are described in the full procedure note, which is enclosed. If I can be of further assistance, please feel free to contact me at . Sincerely, Amos Hodge, 08/01/2024 2:11:00 PM This report has been signed electronically.
--- NOTE | 2024-08-01 14:14 | PCM.POST.ANE ---
Anesthesia: Postop Eval I Current Vital Signs Temperature: 97.4 F Pulse Rate: 78 Blood Pressure: 90/69 Respiratory Rate: 16 Pulse Ox: 93 Oxygen Delivery Method: Nasal Cannula Oxygen Flow Rate (L/min): 3 Assessment Airway patent: Yes Spontaneous unlabored respirations: Yes Mental status: Asleep nausea: No Vomiting: No Anesthesia Complication: No Fluid Hydration Crystalloid volume administer (ml): 50 Total IV fluid infused: 50 Progress Note Anesthesia document: Postop Eval 1 completed: Yes
--- NOTE | 2024-08-01 16:34 | PCM.POSTANE2 ---
Anesthesia Postop Eval I Sum Postop Eval Completion status Anesthesia document: Postop Eval 1 completed: Yes Anesthesia Postop Eval I Summary Anesthesia Postop Eval I Summary: Anesthesia Postop Eval I: Assessment Summary Airway patent Yes 08/01/24 14:15 [email or web address] Spontaneous unlabored Yes 08/01/24 14:15 [email or web address] respirations Mental status Asleep 08/01/24 14:15 [email or web address] nausea No 08/01/24 14:15 [email or web address] Vomiting No 08/01/24 14:15 [email or web address] Anesthesia Postop Eval I: Fluid Summary Crystalloid volume administer 50 08/01/24 14:15 [email or web address] (ml) Colloids volume administered ( ml) Blood Product volume administered (ml) Total IV fluid infused 50 08/01/24 14:15 [email or web address] Anesthesia Postop Eval I: Summary Notes Anesthesia Complication No 08/01/24 14:15 [email or web address] Anesthesia Complication Comment: Post-operative progress note Anesthesia: Postop Eval II Evaluation Mental status: Awake and Calm Pain Level: 0 nausea: No Vomiting: No Complications Anesthesia Complication: No
== END 2024-08-01 15:04 | disposition home or self-care (01) ==
LOC: EN 11:53 → AC 11:54
PROVIDERS: PCP Family Medicine; Referring Provider Family Medicine; Visit Provider Internal Medicine Gastroenterology
PROC: 0DJD8ZZ Inspection of Lower Intestinal Tract, Via Natural or Artificial Opening Endoscopic (ICD-10-PCS; CPT 45378; principal; 2024-08-01 12:55)
DX: D50.0 Iron deficiency anemia secondary to blood loss (chronic) (principal); E11.42 Type 2 diabetes mellitus with diabetic polyneuropathy; Z79.4 Long term (current) use of insulin; E78.5 Hyperlipidemia, unspecified; G47.30 Sleep apnea, unspecified; K63.89 Other specified diseases of intestine; Z79.51 Long term (current) use of inhaled steroids; Z79.899 Other long term (current) drug therapy; Z79.82 Long term (current) use of aspirin; Z79.01 Long term (current) use of anticoagulants; Z87.891 Personal history of nicotine dependence; Z86.718 Personal history of other venous thrombosis and embolism
CPT/HCPCS: 45380; 82962; 88305; A4216; J2405

== ENCOUNTER → 2024-09-30 | Outpatient (CLI) | payer MEDICAID, SELFPAY ==
[2024-09-30 16:04] LABS: HIV - WCH Non-Reactive (Nonreactive); Syphilis Antibodies Non-reactive
== END | disposition home or self-care (01) ==
PROVIDERS: PCP Family Medicine; Referring Provider Family Medicine; Visit Provider Family Medicine
DX: Z20.9 Contact with and (suspected) exposure to unspecified communicable disease (principal)
CPT/HCPCS: 36415; 86703; 86780; 87491; 87591

== ENCOUNTER 2024-10-04 09:02 | Emergency (ER) | payer MEDICAID, SELFPAY ==
[2024-10-04] VITALS (7 sets, daily range): BP systolic 105–118; BP diastolic 64–76; PULSE 85–110; RESP 18–22; TEMP 36.6; O2SAT 91–98; BMI 31.6
--- NOTE | 2024-10-04 09:08 | EKG12_ITS ---
Test Reason : SOB Blood Pressure : */* mmHG Vent. Rate : 105 BPM Atrial Rate : 105 BPM P-R Int : 134 ms QRS Dur : 82 ms QT Int : 414 ms P-R-T Axes : 32 29 36 degrees QTcB Int : 547 ms Sinus tachycardia Otherwise normal ECG Confirmed by EULOGIO LAW, SD ([id number]), senior editor JEANIE DUARTE ([id number]) on 10/07/2024 6:11:00 AM Referred By: Confirmed By: SD KRISHNAN MD
[2024-10-04] MEDS: Ipratropium/Albuterol Sulfate 3 ML AMPUL.NEB INHALATION ×3 (09:24)
--- NOTE | 2024-10-04 09:25 | EX.ED.DYSGE1 ---
HPI History of Present Illness Chief Complaint: Shortness of Breath Narrative Narrative: Patient is a 43-year-old female with a past medical history of iron deficiency anemia, COPD, antiphospholipid antibody syndrome, DVTs on Eliquis, history of lichen planus with recurrent esophageal dilations, depression, anxiety, SIERRA, type 2 diabetes, asthma who presents to the emergency department chief complaint of chest pain, cough and not feeling well. Patient states that on Sunday she started not feeling well her son recently tested positive for influenza A. States that their primary care physician prescribed both of them Tamiflu which she started and by Sunday she was feeling very unwell. States that yesterday she had esophageal dilation down at [facility]. States that on the way home she developed chest pain but immediately after the procedure she was feeling fine. States that she did have chest pain in the past as well. States on she started coughing up sputum that is green in nature. Patient states that overall she feels unwell. States that she has not been on steroids recently but she states that she does not like to take steroids as they make her mean. [facility] Medical History Status post placement of bone anchored hearing aid (BAHA) Iron deficiency anemia COPD (chronic obstructive pulmonary disease) Sepsis Vapes nicotine containing substance Insulin dependent diabetes mellitus Wears dentures History of TIAs History of diverticulosis Medication induced coagulopathy Anti-phospholipid antibody syndrome Wears hearing aid in both ears Hypothyroidism Chronic pain GERD (gastroesophageal reflux disease) Hx of lichen planus Chronic cough CPAP (continuous positive airway pressure) dependence Pulmonary embolism DVT (deep venous thrombosis) Migraine headache Back pain Recurrent UTI Bone fracture Arthritis Seasonal allergies Chronic ethmoidal sinusitis Depression Rosacea Anxiety Morbid obesity Atopic dermatitis Chronic mastoiditis Myalgia and myositis Peripheral edema SIERRA (obstructive sleep apnea) Restless legs syndrome Chronic back pain Acute DVT (deep venous thrombosis) Hyperlipidemia Sarcoidosis Peripheral neuropathy DM type 2 (diabetes mellitus, type 2) GERD (gastroesophageal reflux disease) Asthma Home Medications ?Medication ?Instructions ?Recorded ?Last Taken ?Type pantoprazole 40 mg tablet,delayed 40 mg PO BID reflux 01/31/18 08/01/24 History release pramipexole 1 mg tablet 1 mg PO TID restless legs 01/31/18 08/01/24 History albuterol sulfate 90 mcg/actuation 1 inh inhalation PRN PRN breathing 12/23/20 Unknown History aerosol inhaler (Ventolin HFA) apixaban 5 mg tablet (Eliquis) 5 mg PO BID blood thinner 12/23/20 07/28/24 History oxybutynin chloride 10 mg 10 mg PO DAILY bladder 12/23/20 07/31/24 History tablet,extended release 24 hr pregabalin 100 mg capsule (Lyrica) 100 mg PO TID pain 12/23/20 08/01/24 History aspirin 81 mg tablet,delayed 81 mg PO DAILY heart health 06/16/23 07/28/24 History release clotrimazole-betamethasone 1 1 applic topical Q12H PRN skin 06/16/23 07/31/24 History %-0.05 % lotion irritation cyclobenzaprine 10 mg tablet 10 mg PO TID PRN pain 06/16/23 08/01/24 History insulin lispro protamine-lispro 25 unit subcut BID diabetes 06/16/23 07/31/24 History 100 unit/mL (75-25) subcutaneous pen (Humalog Mix 75-25 KwikPen) metronidazole 0.75 % (37.5 mg/5 1 appful vaginal PRN PRN vaginal 06/16/23 07/31/24 History gram) vaginal gel dryness oxycodone-acetaminophen 10 mg-325 1 tab PO Q8H PRN pain 06/16/23 07/13/23 History mg tablet quetiapine 300 mg tablet 300 mg PO QHS PRN mental health 06/16/23 07/31/24 History polysaccharide iron complex 150 mg 150 mg PO DAILY 30 days #30 caps 06/18/23 07/31/24 Rx iron capsule (Ferrex) rosuvastatin 20 mg tablet (Crestor) 20 mg PO DAILY #30 tabs 06/18/23 07/31/24 Rx empagliflozin 25 mg tablet 25 mg PO DAILY 08/13/23 07/31/24 History (Jardiance) folic acid 1 mg tablet 1 mg PO BREAKFAST 08/13/23 07/31/24 History oxcarbazepine 600 mg tablet 600 mg PO BID 08/13/23 07/31/24 History (Trileptal) prazosin 1 mg capsule 1 mg PO QHS 08/13/23 07/31/24 History citalopram 40 mg tablet 40 mg PO QHS mental health 08/29/23 07/31/24 History cholecalciferol (vitamin D3) 25 25 mcg PO DAILY 02/13/24 07/31/24 History mcg (1,000 unit) capsule dulaglutide 4.5 mg/0.5 mL 4.5 mg subcut QWEEK 06/24/24 07/17/24 History subcutaneous pen injector (Trulicity) hydroxyzine pamoate 50 mg capsule 50 mg PO TID PRN mental health 06/24/24 08/01/24 History doxycycline hyclate 100 mg capsule 100 mg PO BID 7 days #14 caps 10/04/24 Unknown Rx famotidine 20 mg tablet 20 mg PO DAILY PRN acid reflux 10/04/24 Unknown History mupirocin 2 % topical ointment 1 applic topical TID 10/04/24 Unknown History ondansetron 4 mg disintegrating 4 mg PO Q6H PRN nausea and 10/04/24 Unknown Rx tablet vomiting #30 tabs oseltamivir 75 mg capsule 75 mg PO DAILY 10/04/24 Unknown History Allergy/AdvReac Type Severity Reaction Status Date / Time levothyroxine Allergy Mild PT UNSURE Verified 06/24/24 09:07 OF REACTION tramadol HCl (From Ultra) AdvReac Vomiting Verified 06/24/24 09:07 Family History Father Diabetes Asthma Brother Asthma Unknown Asthma Arthritis Diabetes Heart disease Hypertension Thyroid disorder Surgical History History of esophagogastroduodenoscopy (EGD) History of esophagogastroduodenoscopy (EGD) History of colonoscopy Hx of cystoscopy lymph node removal history of sinusplasty History of tubal ligation History of total hysterectomy History of cholecystectomy Social History household members: significant other Smoking Status: Current every day smoker tobacco type: e-cigarettes alcohol intake: never substance use type: does not use ROS ROS ED ROS Narrative Constitutional: Complains of chills and fever denies headaches, lightness, dizziness Eyes: Denies change in vision double vision blurry vision Cardiovascular: With chest pain as noted above Respiratory: Complains cough and shortness of breath as noted above Abdomen: Denies abdominal pain nausea vomiting diarrhea : Denies any urinary symptoms Neurological: Denies numbness, weakness, tingling Musculoskeletal: Complains of right-sided chest wall pain Skin: Denies any rashes or lesions EXAM Physical Exam Narrative Exam Narrative: General: Patient was lying in bed did appear to be uncomfortable overall not feeling well Head: Atraumatic, normocephalic Eyes: PERRL bilaterally, EOMI bilateral, no conjunctival injection noted Neck: Soft, supple, trachea midline Cardiovascular: Regular rate and rhythm no murmurs gallops rubs noted Respiratory: Clear to auscultation bilaterally no rales rhonchi or wheezes noted Abdomen: Soft, nondistended, bowel sounds present x 4 Extremities: +4/5 strength noted in the bilateral upper and lower extremities, radial pulses +2/4 in the bilateral extremities, no pedal edema on exam Musculoskeletal: No crepitus noted on the anterior chest wall or up in her neck Neurological: Patient following commands knew that she was at [facility] year is 2024 Skin: Warm, dry, intact no rashes or lesions noted Const Vital Signs: 10/04/24 09:04 10/04/24 09:06 10/04/24 09:19 Temperature 97.8 F Temperature Source Temporal Pulse Rate 110 H Respiratory Rate 20 H Respiratory Effort Short of Breath Respiratory Depth Normal Respiratory Pattern Normal Blood Pressure 105/64 Blood Pressure Mean 77 Pulse Ox 95 Oxygen Delivery Method Room Air Room Air 10/04/24 09:25 10/04/24 11:03 10/04/24 13:00 Temperature Temperature Source Pulse Rate 108 H 101 H 101 H Respiratory Rate 22 H 20 H 20 H Respiratory Effort Respiratory Depth Respiratory Pattern Tachypnea Blood Pressure 118/76 Blood Pressure Mean 90 Pulse Ox 98 92 Oxygen Delivery Method Room Air Room Air 10/04/24 15:00 Temperature Temperature Source Pulse Rate 86 Respiratory Rate 19 H Respiratory Effort Respiratory Depth Respiratory Pattern Blood Pressure Blood Pressure Mean Pulse Ox 91 Oxygen Delivery Method MDM MDM MDM Narrative Medical decision making narrative: Patient is a 43-year-old female who presented to the emergency department with a chief complaint of cough, chills, not feeling well in the setting of her son recent test positive for influenza as well as recent esophageal dilation down [facility]. On the differential diagnose includes but not limited to COVID, flu, esophageal perforation, pneumonia, ACS. Once workup is obtained reviewed she will be reevaluated. Patient states that she has been compliant with her Eliquis not missing doses. States that she did stop her Eliquis yesterday for the procedure but otherwise has been compliant. Patient be given 30 cc/kg bolus of IV fluids based on ideal body weight as her BMI is greater than 30. Patient CBC was reviewed was significant for leukocytosis of 14,000, hemoglobin 12.9, platelet count was normal at 266. Patient's INR was normal at 1, PT of 13.2. Patient sodium normal at 132, potassium normal 3.5, creatinine was 0.93. Patient's lactic acid was elevated at 3.1 troponin was normal at 4. Patient's EKG reviewed and independently interpreted by myself showed sinus tachycardia with a rate of 105 bpm with some artifact noted. Patient's test was negative . Patient's chest x-ray reviewed by myself and by radiology showed no acute cardiopulmonary processes questionable mild basilar atelectasis noted. Patient had a repeat lactic acid performed after IV fluids and was noted to be 2.6. I did discuss with the patient she was still having chest pain and with her elevated lactic acidosis we discussed that we should obtain a CT chest with contrast to ensure that there is no perforation of her esophagus from her recent procedure or any other complications. Patient CT chest with contrast was reviewed and showed mild right middle and lower lobe opacities concerning for pneumonia with mild atelectasis in the left lung base. Patient ambulated well here in the emergency department no evidence of hypoxia. I did discuss results with the patient and she will be placed on doxycycline. Patient would like to forego any steroids as they make her mean she states. Patient was advised to follow-up with her primary care physician outpatient setting as well as return with worsening symptoms and concerns. She is agreeable this plan as well as family bedside all question concerns answered she was discharged home in stable condition. Lab Data Labs: Laboratory Results - last 24 hr 10/04/24 10/04/24 09:20 12:50 WBC 14.6 H RBC 4.69 Hgb 12.9 Hct 38.4 MCV 81.9 MCH 27.5 MCHC 33.6 RDW Std Deviation 41.0 RDW Coeff of Karina 13.8 Plt Count 266 MPV 9.7 Immature Gran % (Auto) 0.500 Neut % (Auto) 75.6 H Lymph % (Auto) 15.7 L [place] % (Auto) 8.0 Eos % (Auto) 0.0 Baso % (Auto) 0.2 Absolute Neuts (auto) 11.0 H Absolute Lymphs (auto) 2.29 Nucleated RBC % 0 PT 13.2 INR 1.0 APTT 26.4 Sodium 132 L Potassium 3.5 Chloride 101 Carbon Dioxide 22.0 Anion Gap 9 BUN 9 Creatinine 0.93 Estim Creat Clear Calc 91.57 Est GFR (MDRD) Af Amer 85 Est GFR (MDRD) Non-Af 70 BUN/Creatinine Ratio 9.7 L Glucose 282 H Lactic Acid 3.1 H* 2.6 H* Calcium 8.3 L Troponin I High Sens 4 Serum , Qual NEGATIVE Radiography Diagnostic Testing: Clinical Impression(s) from Imaging Studies Chest X-Ray 10/04/24 09:55 IMPRESSION: Low lung volumes with mild bibasilar atelectasis. Electronically Signed: Cyndi Callaway MD at 11:05 EST Reading Location ID and State: [facility] / ID Tel , Service support , Chest CT 10/04/24 14:03 IMPRESSION: Mild right middle and lower lobe opacities, concerning for pneumonia. Mild atelectasis in the left lung base. Electronically Signed: Cyndi Callaway MD at 15:33 EST Reading Location ID and State: [facility] / ID Tel , Service support , Discharge Plan Triage Chief Complaint: Shortness of Breath ED Provider: Osmar Horton Dx/Rx/DC Orders Clinical Impression: Influenza A, Pneumonia Prescriptions: New doxycycline hyclate 100 mg capsule 100 mg PO BID 7 Days Qty: 14 0RF ondansetron 4 mg tablet,disintegrating 4 mg PO Q6H PRN (Reason: nausea and vomiting) Qty: 30 0RF No Action Eliquis 5 mg tablet 5 mg PO BID pregabalin [Lyrica] 100 mg capsule 100 mg PO TID oxybutynin chloride 10 mg tablet extended release 24hr 10 mg PO DAILY albuterol sulfate [Ventolin HFA] 90 mcg/actuation HFA aerosol inhaler 1 inh INHALATION PRN PRN (Reason: breathing) cholecalciferol (vitamin D3) 25 mcg (1,000 unit) capsule 25 mcg PO DAILY pantoprazole 40 mg tablet,delayed release (DR/EC) 40 mg PO BID Patient Comments: acid reflex pramipexole 1 mg tablet 1 mg PO TID Patient Comments: muscle spasms aspirin 81 mg tablet,delayed release (DR/EC) 81 mg PO DAILY cyclobenzaprine 10 mg tablet 10 mg PO TID PRN (Reason: pain) Patient Comments: TAKE 1/2 TO 1 (ONE-HALF TO ONE) TABLET BY MOUTH THREE TIMES DAILY NEEDED clotrimazole-betamethasone 1-0.05 % lotion 1 applic TOPICAL Q12H PRN (Reason: skin irritation) Patient Comments: APPLY LOTION TOPICALLY TO AFFECTED AREA TWICE DAILY NEEDED insulin lispro protamin-lispro [Humalog Mix 75-25 KwikPen] 100 unit/mL (75-25) insulin pen 25 unit SUBCUT BID Patient Comments: INJECT 25-35 UNITS SUBCUTANEOUSLY TWICE DAILY IN THE MORNING AND IN THE EVENING; sliding scale metronidazole 0.75 % (37.5mg/5 gram) gel 1 appful VAGINAL PRN PRN (Reason: vaginal dryness) Patient Comments: INSERT 1 APPLICATORFUL VAGINALLY ONCE DAILY NEEDED FOR 5 DAYS oxycodone-acetaminophen 10-325 mg tablet 1 tab PO Q8H PRN (Reason: pain) Patient Comments: TAKE 1 TABLET BY MOUTH THREE TIMES DAILY NEEDED CHRONIC INTRACTABLE PAIN quetiapine 300 mg tablet 300 mg PO QHS PRN (Reason: mental health) Patient Comments: TAKE 1 TABLET BY MOUTH ONCE DAILY AT BEDTIME rosuvastatin [Crestor] 20 mg tablet 20 mg PO DAILY Qty: 30 0RF Rx Instructions: TO REPLACE 10mg polysaccharide iron complex [Ferrex 150] 150 mg iron Capsule 150 mg PO DAILY 30 Days Qty: 30 0RF Jardiance 25 mg tablet 25 mg PO DAILY prazosin 1 mg capsule 1 mg PO QHS Patient Comments: TAKE 1 CAPSULE BY MOUTH ONCE DAILY AT BEDTIME oxcarbazepine [Trileptal] 600 mg tablet 600 mg PO BID folic acid 1 mg Tablet 1 mg PO BREAKFAST citalopram 40 mg tablet 40 mg PO QHS Rx Instructions: hold while taking ciprofloxacin Trulicity 4.5 mg/0.5 mL pen injector 4.5 mg subcut QWEEK hydroxyzine pamoate 50 mg capsule 50 mg PO TID PRN (Reason: mental health) Patient Comments: 1 capsule three times a day as needed Rx Instructions: hold while taking ciprofloxacin famotidine 20 mg tablet 20 mg PO DAILY PRN (Reason: acid reflux) mupirocin 2 % ointment 1 applic topical TID oseltamivir 75 mg capsule 75 mg PO DAILY Primary Care Provider: Albert Cheatham Referrals: Albert Cheatham, [Primary Care Provider] - Activity Restrictions/Additional Instructions: Follow-up with your physician in the outpatient setting return with worsening symptoms or any concerns. He tested positive for influenza A and your CT chest showed evidence of pneumonia. Take antibiotics as prescribed. Use Zofran as needed for nausea as prescribed. Print Language: Bulgarian Disposition Disposition: Home, Self Care
[2024-10-04] MEDS: 0.9% Normal Saline (1000mL) 1,000 ML 999 ML IV ×2 (09:29→10:59)
[2024-10-04 09:32] LABS: Absolute Lymphocyte Count 2.29 X10^3/uL (0.83-4.51); Basophil# 0.03 X10^3/uL; Basophil% 0.2 % (0-1); Hematocrit 38.4 % (37-47); Hemoglobin 12.9 g/dL (12.0-15.0); Lymphocyte # 2.29 X10^3/ul (0.83-4.51); Lymphocyte % 15.7 % (19-41); Mean Corp Hgb Conc 33.6 g/dL (32-36); Mean Corpuscular Hgb 27.5 pg (27.0-32.0); Mean Corpuscular Volume 81.9 fL (81-99); Mean Platelet Vol. 9.7 fl (6.2-12.0); Monocyte# 1.17 X10^3/uL; NRBC Flagged by Analyzer 0 % (0-5); Neutrophil # 11.01 X10^3/uL (2.7-7.7); Neutrophil % 75.6 % (47-70); Platelet Count 266 K/mm3 (150-450); RBC Distribution Width CV 13.8 % (11.6-14.6); Red Blood Count 4.69 M/mm3 (4.2-5.4); White Blood Count 14.6 K/mm3 (4.4-11.0)
[2024-10-04 09:42] LABS: Partial Thromboplast Time 26.4 Seconds (24.1-36.2); Prothrombin Time (Protime)PT. 13.2 SECONDS (11.7-14.9)
--- NOTE | 2024-10-04 09:55 | RAD_ITS ---
HISTORY: chest pain. TECHNIQUE: XR Chest 2 Views. COMPARISON: 10/30/2023. FINDINGS: CARDIOMEDIASTINAL BORDERS: Cardiac silhouette within normal limits in size. Mediastinal contour unremarkable. LUNGS: Low lung volumes with mild linear bibasilar opacities. PLEURA: No pleural effusion or pneumothorax seen. OSSEOUS STRUCTURES: Unremarkable. RAD/Chest PA and Lateral IMPRESSION: Low lung volumes with mild bibasilar atelectasis. Electronically Signed: Cyndi Callaawy MD at 11:05 EST ,
[2024-10-04 10:04] LABS: Internal QC Validated? YES +Cl - CLEAR BKGD; Pregnancy, Serum, hCG Quali. NEGATIVE Negative
[2024-10-04 10:13] LABS: Anion Gap 9 (5-15); BUN 9 mg/dL (7-18); BUN/Creat Ratio 9.7 RATIO (10-20); Calcium,Total 8.3 mg/dL (8.5-10.1); Chloride 101 mmol/L (98-107); Creatinine, Serum 0.93 mg/dL (0.55-1.02); EST Glomerular Filtration Rate 70 mL/min (>60); Est Glom Filt Rate - Afr Amer 85 mL/min (>60); Estimated Creatinine Clearance 91.57 ml/min; Glucose 282 mg/dL (74-106); Potassium 3.5 mmol/L (3.5-5.1); Sodium Level 132 mmol/L (136-145); Troponin-I HS 4 pg/mL (3.0-54.0)
[2024-10-04 10:35] LABS: Lactic Acid 3.1 mmol/L (0.4-1.9)
[2024-10-04] MEDS: Acetaminophen 500 MG Tablet 1000 MG PO (11:14)
[2024-10-04] MEDS: 0.9% Normal Saline (500mL Bag) 500 ML 999 ML IV (12:00)
--- NOTE | 2024-10-04 12:01 | ED.RN ---
dr. reveles orders total fluids to be 2500ml. initial bag scanned under different order. pt. receives 2500ml of NS
[2024-10-04] MEDS: Ketorolac 30 MG/ML Syringe IV (12:46)
[2024-10-04 13:26] LABS: Reflex Lactate? Y
[2024-10-04 13:45] LABS: Lactic Acid 2.6 mmol/L (0.4-1.9)
--- NOTE | 2024-10-04 14:03 | CT_ITS ---
HISTORY: pain, esophageal dilation yesterday. TECHNIQUE: CT of the chest was performed after the intravenous administration of 100 mL Isovue-370. Coronal and sagittal reformatted images. Individualized dose optimization techniques were used for this CT. 922 images. COMPARISON: XR same day. FINDINGS: CENTRAL AIRWAYS: Patent. LUNGS: Mild right middle and lower lobe consolidation. Mild lingular and left lower lobe lower lobe atelectasis. PLEURA: No pneumothorax or significant pleural effusion. HEART/PERICARDIUM: Heart within normal limits in size. No pericardial effusion. AORTA/VESSELS: No thoracic aortic aneurysm or dissection flap. Suboptimal contrast bolus in the pulmonary arteries. MEDIASTINUM/ABELARDO: Small thyroid nodules measuring up to 1 cm in the left lobe. No significant pneumomediastinum. No pathologically enlarged lymph nodes. OSSEOUS STRUCTURES: Intact. UPPER ABDOMEN: Cholecystectomy. Hepatic steatosis CT/Chest WITH Contrast IMPRESSION: Mild right middle and lower lobe opacities, concerning for pneumonia. Mild atelectasis in the left lung base. Electronically Signed: Cyndi Callaway MD at 15:33 EST ,
[2024-10-04 17:16] LABS: Reflex Lactate? Y
== END 2024-10-04 15:58 | disposition home or self-care (01) ==
PROVIDERS: Emergency Provider Emergency Medicine; PCP Family Medicine; Visit Provider Emergency Medicine
DX: J10.1 Influenza due to other identified influenza virus with other respiratory manifestations (principal); J44.9 Chronic obstructive pulmonary disease, unspecified; E11.42 Type 2 diabetes mellitus with diabetic polyneuropathy; Z79.4 Long term (current) use of insulin; J18.9 Pneumonia, unspecified organism; G47.33 Obstructive sleep apnea (adult) (pediatric); Z86.73 Personal history of transient ischemic attack (TIA), and cerebral infarction without residual deficits; Z86.711 Personal history of pulmonary embolism; Z86.718 Personal history of other venous thrombosis and embolism; Z79.01 Long term (current) use of anticoagulants
CPT/HCPCS: 36415; 71046; 71260; 80048; 83605; 84484; 84703; 85025; 85610; 85730; 87040; 87086; 87088; 87631; 93005; 94640; 96361; 96374; 96376; 99284; Q9967; A4216

== ENCOUNTER 2024-11-29 11:21 | Emergency (ER) | payer MEDICAID, SELFPAY ==
[2024-11-29 11:21] VITALS: BP 106/83; PULSE 104; RESP 16; TEMP 36.8; O2SAT 94; BMI 30.4
--- NOTE | 2024-11-29 11:39 | CT_ITS ---
EXAM: BRAIN/HEAD WITHOUT CONTRAST CLINICAL HISTORY: 44 y/o F with HEAD INJURY ON ANTICOAGULATION, general illness, fall a few days ago. COMPARISON: CT head 03/03/2024. TECHNIQUE: Routine CT imaging of the head without IV contrast. Additional multiplanar reformats were obtained. Dose reduction techniques were used including intermediate exposure control (AEC),iterative reconstruction technique, and/or mA and/or KV dose adjustments based on patient's size. FINDINGS: Stable metallic foreign body within the left temporal/occipital calvarium. No acute intracranial hemorrhage or herniation. The wolfe-white matter interfaces are maintained. The basal cisterns are patent. No ventriculomegaly. Prior FESS with unchanged mild thickening of the bilateral maxillary sinuses. Unchanged left mastoid effusion. The orbits are unremarkable. No acute calvarial fracture or scalp hematoma. CT/Brain/Head without Contrast IMPRESSION: 1. No acute intracranial abnormality. 2. Stable left mastoid effusion. Reading Location: [id number]
--- NOTE | 2024-11-29 11:40 | RAD_ITS ---
PROCEDURE: CHEST PA AND LATERAL 11/29/2024 REASON FOR EXAM: 44-year-old female, shortness of breath, history of pneumonia. TECHNIQUE: Frontal and lateral views of the chest. COMPARISON: CT chest 10/04/2024. FINDINGS: The heart size is normal. The mediastinal contour is unremarkable. Unchanged round atelectasis/scarring within the right middle and lower lobes. No new focal consolidation, pleural effusion or pneumothorax. The bones are unremarkable. RAD/Chest PA and Lateral IMPRESSION: NO ACUTE FINDINGS. Reading Location: [facility]
--- NOTE | 2024-11-29 11:40 | EX.ED.DYSGE1 ---
HPI History of Present Illness Chief Complaint: General Illness Narrative Narrative: 44-year-old female past medical history of pneumonia a few months ago, states she gets pneumonia frequently, at least a few times per year presents with multiple somatic complaints. She relates history that she has a clotting disorder and takes Eliquis. A few days ago, she felt weak, fell and hit her head. Since then she has had intermittent headaches as well as nausea but no vomiting. She has had runny nose and sinus congestion as well. She had a cough with mild shortness of breath. Over the last few days, she has felt sick with occasional cough. She is concerned she may have pneumonia again. However, she states that the last time she had pneumonia was diagnosed on the CT scan. 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 Wears hearing aid in both ears Hypothyroidism Chronic pain GERD (gastroesophageal reflux disease) Hx of lichen planus Chronic cough CPAP (continuous positive airway pressure) dependence Pulmonary embolism DVT (deep venous thrombosis) Migraine headache Back pain Recurrent UTI Bone fracture Arthritis Seasonal allergies Chronic ethmoidal sinusitis Depression Rosacea Anxiety Morbid obesity Atopic dermatitis Chronic mastoiditis Myalgia and myositis Peripheral edema SIERRA (obstructive sleep apnea) Restless legs syndrome Chronic back pain Acute DVT (deep venous thrombosis) Hyperlipidemia Sarcoidosis Peripheral neuropathy DM type 2 (diabetes mellitus, type 2) GERD (gastroesophageal reflux disease) Asthma Home Medications ?Medication ?Instructions ?Recorded ?Last Taken ?Type pantoprazole 40 mg tablet,delayed 40 mg PO BID reflux 01/31/18 08/01/24 History release pramipexole 1 mg tablet 1 mg PO TID restless legs 01/31/18 08/01/24 History albuterol sulfate 90 mcg/actuation 1 inh inhalation PRN PRN breathing 12/23/20 Unknown History aerosol inhaler (Ventolin HFA) apixaban 5 mg tablet (Eliquis) 5 mg PO BID blood thinner 12/23/20 07/28/24 History oxybutynin chloride 10 mg 10 mg PO DAILY bladder 12/23/20 07/31/24 History tablet,extended release 24 hr pregabalin 100 mg capsule (Lyrica) 100 mg PO TID pain 12/23/20 08/01/24 History aspirin 81 mg tablet,delayed 81 mg PO DAILY heart health 06/16/23 07/28/24 History release clotrimazole-betamethasone 1 1 applic topical Q12H PRN skin 06/16/23 07/31/24 History %-0.05 % lotion irritation cyclobenzaprine 10 mg tablet 10 mg PO TID PRN pain 06/16/23 08/01/24 History insulin lispro protamine-lispro 25 unit subcut BID diabetes 06/16/23 07/31/24 History 100 unit/mL (75-25) subcutaneous pen (Humalog Mix 75-25 KwikPen) metronidazole 0.75 % (37.5 mg/5 1 appful vaginal PRN PRN vaginal 06/16/23 07/31/24 History gram) vaginal gel dryness oxycodone-acetaminophen 10 mg-325 1 tab PO Q8H PRN pain 06/16/23 07/13/23 History mg tablet quetiapine 300 mg tablet 300 mg PO QHS PRN mental health 06/16/23 07/31/24 History polysaccharide iron complex 150 mg 150 mg PO DAILY 30 days #30 caps 06/18/23 07/31/24 Rx iron capsule (Ferrex) rosuvastatin 20 mg tablet (Crestor) 20 mg PO DAILY #30 tabs 06/18/23 07/31/24 Rx empagliflozin 25 mg tablet 25 mg PO DAILY 08/13/23 07/31/24 History (Jardiance) folic acid 1 mg tablet 1 mg PO BREAKFAST 08/13/23 07/31/24 History oxcarbazepine 600 mg tablet 600 mg PO BID 08/13/23 07/31/24 History (Trileptal) prazosin 1 mg capsule 1 mg PO QHS 08/13/23 07/31/24 History citalopram 40 mg tablet 40 mg PO QHS mental health 08/29/23 07/31/24 History cholecalciferol (vitamin D3) 25 25 mcg PO DAILY 02/13/24 07/31/24 History mcg (1,000 unit) capsule dulaglutide 4.5 mg/0.5 mL 4.5 mg subcut QWEEK 06/24/24 07/17/24 History subcutaneous pen injector (Trulicity) hydroxyzine pamoate 50 mg capsule 50 mg PO TID PRN mental health 06/24/24 08/01/24 History doxycycline hyclate 100 mg capsule 100 mg PO BID 7 days #14 caps 10/04/24 Unknown Rx famotidine 20 mg tablet 20 mg PO DAILY PRN acid reflux 10/04/24 Unknown History mupirocin 2 % topical ointment 1 applic topical TID 10/04/24 Unknown History ondansetron 4 mg disintegrating 4 mg PO Q6H PRN nausea and 10/04/24 Unknown Rx tablet vomiting #30 tabs oseltamivir 75 mg capsule 75 mg PO DAILY 10/04/24 Unknown History Allergy/AdvReac Type Severity Reaction Status Date / Time levothyroxine Allergy Mild PT UNSURE Verified 11/29/24 11:21 OF REACTION tramadol HCl (From Ultram) AdvReac Vomiting Verified 11/29/24 11:21 Family History Father Diabetes Asthma Brother Asthma Unknown Asthma Arthritis Diabetes Heart disease Hypertension Thyroid disorder Surgical History History of esophagogastroduodenoscopy (EGD) History of esophagogastroduodenoscopy (EGD) History of colonoscopy Hx of cystoscopy lymph node removal history of sinusplasty History of tubal ligation History of total hysterectomy History of cholecystectomy Social History household members: significant other Smoking Status: Current every day smoker tobacco type: e-cigarettes alcohol intake: never substance use type: does not use ROS ROS ED ROS Narrative Review of systems positive for subjective fever, no chills. Positive cough. Positive shortness of breath. Sinus pressure and drainage. Positive nausea but no vomiting. Recent closed head injury. Complains of weakness as well. EXAM Physical Exam Narrative Exam Narrative: Afebrile. Vital signs noted. Nontoxic-appearing. HEENT examination reveals PERRL, EOMI. No blood in nares. Slightly swollen turbinates. Neck soft and supple without meningismus. Cardiovascular examination reveals mild tachycardia that is intermittent. Moving a good amount of air, speaking in full sentences. Positive expiratory wheezing with occasional rhonchi left greater than right. Abdomen soft and nontender with normoactive bowel sounds. No guarding or rebound. Neurological examination nonfocal and nonlateralizing. Const Vital Signs: 11/29/24 11:21 11/29/24 11:55 11/29/24 12:43 Temperature 98.2 F 98.2 F Temperature Source Oral Pulse Rate 104 H 80 77 Respiratory Rate 16 18 20 H Respiratory Pattern Normal Blood Pressure 106/83 H 138/78 H Blood Pressure Mean 90 98 Pulse Ox 94 955 Oxygen Delivery Method Room Air MDM MDM MDM Narrative Medical decision making narrative: Given the patient's recent closed head injury on anticoagulation, differential diagnosis includes subdural hematoma versus closed head injury/mild concussion. As she states her injury was 2 days ago, I doubt any significant intracranial hemorrhage given her neurological examination being normal. Regarding her upper respiratory infection, does include pneumonia versus bronchitis. She does vape. I have low suspicion for pneumothorax based on her history and physical. I do not feel that laboratory work is indicated. CT of the brain will be obtained as well as chest x-ray in 2 views. She was also swabbed for COVID and influenza. Review of the radiology report of the CT of the brain shows no acute hemorrhage. She has chronic left mastoid effusion that is stable as well as chronic maxillary sinus thickening. I do not feel she needs antibiotics for mastoiditis as this is chronic. Chest x-ray interpreted by myself independently shows no evidence of acute process, no pneumonia, no pleural effusion. Her respiratory swab is positive for COVID. At this point in time, I feel she can be discharged to follow-up. Her pulse ox is 94% on room air and she is not hypoxic so I do not feel she needs dexamethasone. She will be symptomatic. Smoking cessation discussed. Return instructions were reviewed. Disposition is discharged home in stable condition. History & Record Review Discussion w/independent historian: Patient Radiography Diagnostic Testing: Clinical Impression(s) from Imaging Studies Brain CT 11/29/24 11:39 IMPRESSION: 1. No acute intracranial abnormality. 2. Stable left mastoid effusion. Reading Location: [facility] Chest X-Ray 11/29/24 11:40 IMPRESSION: NO ACUTE FINDINGS. Reading Location: [facility] Discharge Plan Triage Chief Complaint: General Illness ED Provider: Ariel Wolfe Dx/Rx/DC Orders Clinical Impression: COVID, Viral syndrome Instructions: Coronavirus Disease 2019 (COVID-19): Caring for Yourself or Others, ED Viral Syndrome (Adult) Prescriptions: No Action Eliquis 5 mg tablet 5 mg PO BID pregabalin [Lyrica] 100 mg capsule 100 mg PO TID oxybutynin chloride 10 mg tablet extended release 24hr 10 mg PO DAILY albuterol sulfate [Ventolin HFA] 90 mcg/actuation HFA aerosol inhaler 1 inh INHALATION PRN PRN (Reason: breathing) cholecalciferol (vitamin D3) 25 mcg (1,000 unit) capsule 25 mcg PO DAILY pantoprazole 40 mg tablet,delayed release (DR/EC) 40 mg PO BID Patient Comments: acid reflex pramipexole 1 mg tablet 1 mg PO TID Patient Comments: muscle spasms aspirin 81 mg tablet,delayed release (DR/EC) 81 mg PO DAILY cyclobenzaprine 10 mg tablet 10 mg PO TID PRN (Reason: pain) Patient Comments: TAKE 1/2 TO 1 (ONE-HALF TO ONE) TABLET BY MOUTH THREE TIMES DAILY NEEDED clotrimazole-betamethasone 1-0.05 % lotion 1 applic TOPICAL Q12H PRN (Reason: skin irritation) Patient Comments: APPLY LOTION TOPICALLY TO AFFECTED AREA TWICE DAILY NEEDED insulin lispro protamin-lispro [Humalog Mix 75-25 KwikPen] 100 unit/mL (75-25) insulin pen 25 unit SUBCUT BID Patient Comments: INJECT 25-35 UNITS SUBCUTANEOUSLY TWICE DAILY IN THE MORNING AND IN THE EVENING; sliding scale metronidazole 0.75 % (37.5mg/5 gram) gel 1 appful VAGINAL PRN PRN (Reason: vaginal dryness) Patient Comments: INSERT 1 APPLICATORFUL VAGINALLY ONCE DAILY NEEDED FOR 5 DAYS oxycodone-acetaminophen 10-325 mg tablet 1 tab PO Q8H PRN (Reason: pain) Patient Comments: TAKE 1 TABLET BY MOUTH THREE TIMES DAILY NEEDED CHRONIC INTRACTABLE PAIN quetiapine 300 mg tablet 300 mg PO QHS PRN (Reason: mental health) Patient Comments: TAKE 1 TABLET BY MOUTH ONCE DAILY AT BEDTIME rosuvastatin [Crestor] 20 mg tablet 20 mg PO DAILY Qty: 30 0RF Rx Instructions: TO REPLACE 10mg polysaccharide iron complex [Ferrex 150] 150 mg iron Capsule 150 mg PO DAILY 30 Days Qty: 30 0RF Jardiance 25 mg tablet 25 mg PO DAILY prazosin 1 mg capsule 1 mg PO QHS Patient Comments: TAKE 1 CAPSULE BY MOUTH ONCE DAILY AT BEDTIME oxcarbazepine [Trileptal] 600 mg tablet 600 mg PO BID folic acid 1 mg Tablet 1 mg PO BREAKFAST citalopram 40 mg tablet 40 mg PO QHS Rx Instructions: hold while taking ciprofloxacin Trulicity 4.5 mg/0.5 mL pen injector 4.5 mg subcut QWEEK hydroxyzine pamoate 50 mg capsule 50 mg PO TID PRN (Reason: mental health) Patient Comments: 1 capsule three times a day as needed Rx Instructions: hold while taking ciprofloxacin famotidine 20 mg tablet 20 mg PO DAILY PRN (Reason: acid reflux) mupirocin 2 % ointment 1 applic topical TID oseltamivir 75 mg capsule 75 mg PO DAILY doxycycline hyclate 100 mg capsule 100 mg PO BID 7 Days Qty: 14 0RF ondansetron 4 mg tablet,disintegrating 4 mg PO Q6H PRN (Reason: nausea and vomiting) Qty: 30 0RF Primary Care Provider: Albert Cheatham Referrals: Albert Cheatham, [Primary Care Provider] - 3-5 Days if not improving Activity Restrictions/Additional Instructions: Stop smoking. Use your albuterol inhaler 1 to 2 puffs every 4-6 hours as needed for shortness of breath. Continue [id number] analgesics such as Tylenol or ibuprofen as needed for pain. Follow-up with your primary care provider. Return with increased shortness of breath, new or worsening symptoms. Print Language: Hungarian Disposition Disposition: Home, Self Care
[2024-11-29] MEDS: Albuterol 2.5 MG/3 ML VIAL.NEB. INHALATION (11:54)
[2024-11-29 11:55] VITALS: PULSE 80; RESP 18
[2024-11-29 12:43] VITALS: BP 138/78; PULSE 77; RESP 20; TEMP 36.8; O2SAT 955
== END 2024-11-29 12:54 | disposition home or self-care (01) ==
PROVIDERS: Emergency Provider Emergency Medicine; PCP Family Medicine; Visit Provider Emergency Medicine
DX: U07.1 COVID-19 (principal); J44.9 Chronic obstructive pulmonary disease, unspecified; E11.42 Type 2 diabetes mellitus with diabetic polyneuropathy; B34.9 Viral infection, unspecified; G47.33 Obstructive sleep apnea (adult) (pediatric); F17.290 Nicotine dependence, other tobacco product, uncomplicated; Z86.73 Personal history of transient ischemic attack (TIA), and cerebral infarction without residual deficits; Z86.718 Personal history of other venous thrombosis and embolism; Z86.711 Personal history of pulmonary embolism
CPT/HCPCS: 70450; 71046; 87631; 94640; 99282

== ENCOUNTER → 2025-01-27 | Outpatient (CLI) | payer MEDICAID, SELFPAY ==
[2025-01-27 19:01] LABS: Amphetamine Urine NEGATIVE (<1000 ng/mL); Barbiturate Urine NEGATIVE (< 200 ng/mL); Benzodiazepine Urine NEGATIVE (< 200 ng/mL); Buprenorphine Urine NEGATIVE (< 200 ng/mL); Cocaine Urine NEGATIVE (< 300 ng/mL); Fentanyl, Urine NEGATIVE; Methadone Urine NEGATIVE (< 300 ng/mL); Opiates Urine NEGATIVE (< 300 ng/mL); Oxycodone, Urine NEGATIVE (< 100 ng/mL); PCP Urine NEGATIVE (< 25 ng/mL); THC Urine NEGATIVE (< 50 ng/mL)
[2025-01-27 20:14] LABS: Microalbumin:Creatinine Ratio 10456.6 mg/g CRE
== END | disposition home or self-care (01) ==
LOC: LAB.FUTURE 01-28 10:19 → MTLAB 01-28 10:25
PROVIDERS: PCP Family Medicine; Referring Provider Family Medicine; Visit Provider Family Medicine
DX: E11.49 Type 2 diabetes mellitus with other diabetic neurological complication (principal); Z11.3 Encounter for screening for infections with a predominantly sexual mode of transmission; Z79.899 Other long term (current) drug therapy; Z20.9 Contact with and (suspected) exposure to unspecified communicable disease
CPT/HCPCS: 80307; 82043; 82570; 87491; 87591

== ENCOUNTER → 2025-04-09 | Outpatient (CLI) | payer MEDICAID, SELFPAY ==
[2025-04-09 18:39] LABS: AST(SGOT) 22 U/L (<=31); Alanine Aminotransfer ALT/SGPT 25 U/L (<=34); Albumin, Serum 3.7 g/dL (3.5-5.0); Alkaline Phosphatase 102 U/L (35-104); Anion Gap 15 (5-15); BUN 15 mg/dL (4-19); BUN/Creat Ratio 23.6 RATIO (10-20); Calcium,Total 9.1 mg/dL (7.6-11.0); Carbon Dioxide 21.6 mmol/L (21.0-32.0); Chloride 100 mmol/L (98-108); Cholesterol 191 mg/dL (<=200); Ferritin 31 ng/mL (22-378); Globulin 3.2 g/dL (2.2-4.2); Glucose 208 mg/dL (70-99); Low Density Lipoprotein Calc. 89 mg/dL; Potassium 3.9 mmol/L (3.3-5.1); Triglycerides 273 mg/dL; Very Low Density Lipoprotein 55 mg/dL (5-40); cholesterol:hdl ratio screen 4.06
[2025-04-09 19:42] LABS: Iron 134 ug/dL (50-170)
[2025-04-17 07:07] LABS: Thyroid Stim Immunoglob <0.10 IU/L (0.00-0.55)
== END | disposition home or self-care (01) ==
LOC: BFHLAB 14:07
PROVIDERS: PCP Family Medicine; Visit Provider Family Medicine
DX: E11.49 Type 2 diabetes mellitus with other diabetic neurological complication (principal); D64.9 Anemia, unspecified; E78.5 Hyperlipidemia, unspecified; E03.9 Hypothyroidism, unspecified; R79.89 Other specified abnormal findings of blood chemistry
CPT/HCPCS: 36415; 80053; 80061; 82728; 83036; 83540; 84439; 84443; 84445

== ENCOUNTER → 2025-05-01 | Outpatient (CLI) | payer MEDICAID, SELFPAY ==
--- NOTE | 2025-05-01 14:29 | RAD_ITS ---
PROCEDURE: KNEE 4 OR MORE VIEWS 05/01/2025 REASON FOR EXAM: PAIN TECHNIQUE: KNEE 4 OR MORE VIEWS Laterality: Left COMPARISON: None. RAD/Knee 4 or More Views IMPRESSION: Minimal degenerative changes are seen of the left knee, without associated join t narrowing. No left knee joint effusion is seen. Satisfactory osseous alignment is seen. No fracture or dislocation is evident. If clinical concern persists, short-term follow-up imaging may be obtained to r ule out a currently occult fracture. Reading Location: [place] [id number]
--- NOTE | 2025-05-01 14:29 | RAD_ITS ---
PROCEDURE: ANKLE MIN 3 VIEWS; TIBIA FIBULA 2 VIEWS 05/01/2025 REASON FOR EXAM: PAIN, trauma. TECHNIQUE: ANKLE MIN 3 VIEWS; TIBIA FIBULA 2 VIEWS Laterality: Left COMPARISON: None. RAD/Tibia & Fibula 2 Views IMPRESSION: No radiopaque foreign body is seen. On lateral imaging, normal contour of the Achilles tendon is noted. No ankle j oint effusion is identified. No fracture or dislocation is seen. If clinical concern persists, short-term follow-up imaging may be obtained to r ule out a currently occult fracture. Reading Location: [place] [id number]
--- NOTE | 2025-05-01 14:29 | RAD_ITS ---
PROCEDURE: ANKLE MIN 3 VIEWS; TIBIA FIBULA 2 VIEWS 05/01/2025 REASON FOR EXAM: PAIN, trauma. TECHNIQUE: ANKLE MIN 3 VIEWS; TIBIA FIBULA 2 VIEWS Laterality: Left COMPARISON: None. RAD/Ankle min 3 Views IMPRESSION: No radiopaque foreign body is seen. On lateral imaging, normal contour of the Achilles tendon is noted. No ankle j oint effusion is identified. No fracture or dislocation is seen. If clinical concern persists, short-term follow-up imaging may be obtained to r ule out a currently occult fracture. Reading Location: [place] [address]
== END | disposition home or self-care (01) ==
LOC: MTRAD 14:27
PROVIDERS: PCP Family Medicine; Referring Provider Family Medicine; Visit Provider Family Medicine
DX: M79.605 Pain in left leg (principal)
CPT/HCPCS: 73564; 73590; 73610

== ENCOUNTER → 2025-07-31 | Outpatient (CLI) | payer MEDICAID, SELFPAY ==
--- NOTE | 2025-07-31 14:06 | STRESSREP_ITS ---
Stress Test Report Exercise myocardial perfusion stress test. [44]-year-old [female] with a history of [chest pain]. Stress protocol: Resting EKG demonstrates [normal sinus] rhythm with a rate of [72] bpm. Resting blood pressure is [132/82] mmHg. The patient exercised according to the regular Alessandro protocol for a total duration of [6 minutes and 34 seconds] attaining a maximum heart rate of [150] bpm which was [85]% of maximum predicted heart rate; the maximum workload was [8.7] metabolic equivalents. At rest there were no ST or T wave changes noted to suggest ischemia and at peak exercise, there were no ST changes or T wave changes consistent with myocardial ischemia. No clinical angina was noted the test was terminated due to the target heart rate being achieved/fatigue. The peak blood pressure was [162/70] mmHg. Rate-pressure product was [99088]. Conclusion: Normal exercise stress test with no evidence of ischemia. No significant arr hythmias noted.
== END | disposition home or self-care (01) ==
LOC: CVS 11:32
PROVIDERS: PCP Family Medicine; Referring Provider Family Medicine; Visit Provider Family Medicine
DX: R07.9 Chest pain, unspecified (principal)
CPT/HCPCS: 93017